=== PATIENT | female | born 1950 | race Caucasian/White ===

== ENCOUNTER → 2017-02-16 | Outpatient (CLI) | payer MEDICARE, OTHER ==
[2017-02-16 10:16] LABS: Basophils # (A) 0.1 k/uL (0-0.2); Basophils % (A) 1 %; CH 29.5; CHCM 32.3; Eosinophils # (A) 0.2 k/uL (0-0.7); Eosinophils % (A) 3 %; HCT 42.5 % (34.0-46.0); HDW 2.41; HGB 13.5 gm/dL (11.4-16.0); Luc # (Auto) 0.16; Luc % (Auto) 2; Lymphocytes % (A) 30 %; MCH 29.1 pg (25.0-35.0); MCHC 31.9 g/dL (31.0-37.0); MCV 91.5 fL (80.0-100.0); Mean Platelet Volume 7.3; Monocytes # (A) 0.4 k/uL (0-1.0); Monocytes % (A) 6 %; Neutrophils # (A) 3.8 k/uL (1.3-7.7); Neutrophils % (A) 59 %; RBC 4.65 m/uL (3.80-5.40); RDW 12.5 % (11.5-15.5); WBC 6.5 k/uL (3.8-10.6); WBC (Perox) 6.52
[2017-02-16 10:23] LABS: Appearance,Urine Clear (Clear); Bacteria,Urine Rare /hpf; Bilirubin,Urine Negative (Negative); Glucose,Urine (UA) Negative (Negative); Ketones,Urine Negative (Negative); Leukocyte Esterase,Urine Large (Negative); Mucus,Urine Rare /hpf; Nitrite,Urine Negative (Negative); Particle Count 1654; Protein,Urine Negative (Negative); Specific Gravity,Urine 1.011 (1.001-1.035); Squamous Epithelial Cell,Urine <1 /hpf (0-4); UA Billing (MACRO vs. MICRO) MICRO; Urobilinogen,Urine <2.0 mg/dL (<2.0); WBC,Urine 23 /hpf (0-5)
[2017-02-16 10:27] LABS: Partial Thromboplastin Time 22.8 sec (22.0-30.0); Prothrombin Time 10.4 sec (9.0-12.0)
[2017-02-16 10:40] LABS: ALT 72 U/L (9-52); AST 79 U/L (14-36); Alkaline Phosphatase 99 U/L (38-126); Anion Gap 14 mmol/L; Blood Urea Nitrogen 15 mg/dL (7-17); Calcium 9.8 mg/dL (8.4-10.2); Carbon Dioxide 28 mmol/L (22-30); Chloride 103 mmol/L (98-107); Glucose 94 mg/dL (74-99); Non-African American GFR(MDRD) 59 (>60 ml/min/1.73 sqM); Potassium 5.2 mmol/L (3.5-5.1); Sodium 145 mmol/L (137-145); Total Bilirubin 0.6 mg/dL (0.2-1.3); Total Protein 7.9 g/dL (6.3-8.2)
== END | disposition home or self-care (01) ==
LOC: LABWHC1 09:25
PROVIDERS: ATTEND Internal Medicine Cardiovascular Disease
DX: M43.10 Spondylolisthesis, site unspecified (principal)
CPT/HCPCS: 36415; 80053; 81001; 85025; 85610; 85730

== ENCOUNTER → 2017-03-21 | Outpatient (CLI) | payer MEDICARE, OTHER ==
--- NOTE | 2017-03-21 10:55 | XR ---
EXAMINATION TYPE: XR lumbar spine 2 or 3V DATE OF EXAM: 03/21/2017 10:39 AM CLINICAL HISTORY: Lumbar spine fusion surgery 3 weeks ago. TECHNIQUE: Frontal and lateral images of the lumbar spine are obtained. COMPARISON: MRI lumbar spine September 15, 2016 FINDINGS: There are 5 lumbar type vertebral bodies redemonstrated. There is interval surgery of bila teral laminectomy defects and spinous process resection at L4 and L5 levels. There is placement of po sterior intra-articular rods and screws transfixing L4, L5, and S1 levels. There is stable grade 1 an terolisthesis of L4 on L5. Vertebral body heights and disc space heights above L4 level remain within normal limits. Vascular calcification of the overlying abdominal aorta is seen. IMPRESSION: Interval surgery L4-S1 levels with stable alignment noted.
== END | disposition home or self-care (01) ==
LOC: RADXRMAIN 10:15
DX: M43.16 Spondylolisthesis, lumbar region (principal); Z98.890 Other specified postprocedural states
CPT/HCPCS: 72100

== ENCOUNTER 2017-04-12 18:44 | Emergency (ER) | payer MEDICARE, OTHER ==
--- NOTE | 2017-04-12 19:24 | ED ---
Back Pain HPI - General Chief Complaint: Back Pain/Injury Stated Complaint: Fall-back pain Time Seen by Provider: 04/12/17 19:02 Source: patient, family, RN notes reviewed Limitations: no limitations - History of Present Illness Initial Comments: 67-year-old female presents emergency Department chief complaint low back pain. Patient states that she was bending down to grab something when she fell backwards onto her right hip, back region. She is concerned that she's had lumbar fusion laminectomy 4 weeks ago approximately by Dr. Aguayo. She states she does have hardware. Patient denies bowel bladder incontinence or retention. She states her pain is actually more towards her hip and the proximal posterior region rather than her back. Denies any head injury no LOC. - Related Data Home Medications Medication Instructions Recorded Confirmed Amitriptyline HCl [Amitriptyline 25 mg PO HS 06/10/14 04/12/17 HCl] Clopidogrel Bisulfate [Clopidogrel] 75 mg PO DAILY 06/10/14 04/12/17 Isosorbide Dinitrate 30 mg PO DAILY 06/10/14 04/12/17 Meloxicam [Meloxicam] 7.5 mg PO DAILY 06/10/14 04/12/17 Potassium Chloride [Potassium 20 meq PO DAILY 06/10/14 04/12/17 Chloride ER] Ezetimibe/Simvastatin [Vytorin 1 each PO HS 07/03/14 04/12/17 10-40 mg Tablet] Lisinopril-Hctz 10-12.5 mg 10 mg PO DAILY 10/01/15 04/12/17 [Zestoretic 10-12.5] Montelukast [Singulair] 10 mg PO HS 10/01/15 04/12/17 Brimonidine Tartrate [Alphagan P 1 drops BOTH EYES BID 04/07/16 04/12/17 0.15% Ophth Soln] Diltiazem HCl [Diltiazem ER] 180 mg PO BID 04/07/16 04/12/17 Omeprazole 40 mg PO AC-BRKFST 04/07/16 04/12/17 Timolol 0.5% Ophth Soln [Timoptic 1 drop BOTH EYES BID 04/07/16 04/12/17 0.5% Ophth Soln] Hydrocodone/Acetaminophen [[place] 1 tab PO Q6H PRN 04/12/17 04/12/17 10-325] Allergies Allergy/AdvReac Type Severity Reaction Status Date / Time levofloxacin [From Levaquin] Allergy Rapid Verified 04/12/17 18:53 Heart Rate Review of Systems ROS Statement: Those systems with pertinent positive or pertinent negative responses have been documented in the HPI. ROS Other: All systems not noted in ROS Statement are negative. Past Medical History Past Medical History: Asthma, Coronary Artery Disease (CAD), CVA/TIA, Eye Disorder, GERD/Reflux, Hyperlipidemia, Hypertension, Myocardial Infarction (RI) , Musculoskeletal Disorder, Sleep Apnea/CPAP/BIPAP Additional Past Medical History / Comment(s): GLAUCOMA JOSE ALFREDO. EYES- GLASSES DAILY USE, IGA RESPONSE TRIGGERS ASTHMA, TRIGGER FINGER, LUMBAR DDD, TIA 2012- NO RESIDUAL, USES C-PAP Last Myocardial Infarction Date:: 09/2005 History of Any Multi-Drug Resistant Organisms: None Reported Past Surgical History: Appendectomy, Back Surgery, Bladder Surgery, Breast Surgery, Cholecystectomy, Heart Catheterization, Hysterectomy, Orthopedic Surgery Additional Past Surgical History / Comment(s): LT KNEE ARTHROSCOPY. LT CTR. HX KIDNEY STONE REMOVAL 10/2012, JOSE ALFREDO LASER EYE SURG. PAIN CLINIC PROCEDURES, BREAST BX LT BREAST, Past Anesthesia/Blood Transfusion Reactions: No Reported Reaction Past Psychological History: No Psychological Hx Reported Smoking Status: Never smoker Past Alcohol Use History: None Reported Past Drug Use History: None Reported - Past Family History Mother Family Medical History: Cancer, Hypertension Additional Family Medical History / Comment(s): FROM THYROID CA, Father Family Medical History: Cancer Additional Family Medical History / Comment(s): FROM STOMACH CA, HX ALCOHOLISM General Exam Limitations: no limitations General appearance: alert, in no apparent distress Head exam: Present: atraumatic, normocephalic, normal inspection Neck exam: Present: normal inspection, full ROM. Absent: tenderness, meningismus, lymphadenopathy Respiratory exam: Present: normal lung sounds bilaterally. Absent: respiratory distress, wheezes, rales, rhonchi, stridor Cardiovascular Exam: Present: regular rate, normal rhythm, normal heart sounds. Absent: systolic murmur, diastolic murmur, rubs, gallop, clicks GI/Abdominal exam: Present: soft, normal bowel sounds. Absent: distended, tenderness, guarding, rebound, rigid Extremities exam: Present: normal inspection, full ROM, normal capillary refill. Absent: tenderness, pedal edema, joint swelling, calf tenderness Back exam: Present: tenderness (Right lumbar region, right buttocks region). Absent: normal inspection (Surgical scar noted healing well with no erythema), full ROM (Decreased range of motion secondary to pain and previous surgery) Neurological exam: Present: reflexes normal. Absent: motor sensory deficit Skin exam: Present: warm, dry, intact, normal color. Absent: rash Course Vital Signs 04/12/17 18:48 Temperature 98.3 F Pulse Rate 89 Respiratory 15 Rate Blood Pressure 110/60 O2 Sat by Pulse 95 Oximetry Medical Decision Making - Medical Decision Making 67-year-old female presented for fall back pain, pelvis pain. There is no acute fracture. Patient's pain is primarily on her buttocks, pelvis region. Patient up-to-date on x-ray results and advised to call her surgeon tomorrow about her fall. Patient does have pain medication at home. Return parameters were discussed. Disposition Clinical Impression: Fall, Back pain, Contusion, buttock Disposition: HOME SELF-CARE Condition: Stable Instructions: Acute Low Back Pain (ED) Additional Instructions: Please return to the Emergency Department if symptoms worsen or any other concerns. Please contact your surgeon tomorrow. Referrals: Richard Tinoco MD [Primary Care Provider] - 1-2 days Time of Disposition: 19:41
--- NOTE | 2017-04-12 19:30 | XR ---
EXAMINATION TYPE: XR pelvis AP view DATE OF EXAM: 04/12/2017 7:26 PM CLINICAL HISTORY: Pelvic pain. Lumbar surgery February 2017. TECHNIQUE: A single AP view of the pelvis is obtained. COMPARISON: None. FINDINGS: There is no acute fracture/dislocation evident in the pelvis. The sacroiliac joints appea r symmetric and unremarkable. Symmetric mild to moderate axial joint space loss in both hips is seen . Postsurgical change to lower lumbar spine is noted. The overlying soft tissue appears unremarkable. IMPRESSION: There is no acute fracture or dislocation in the pelvis.
--- NOTE | 2017-04-12 19:33 | XR ---
EXAMINATION TYPE: XR lumbar spine 2 or 3V DATE OF EXAM: 04/12/2017 7:26 PM CLINICAL HISTORY: Low back pain, history of fusion surgery February 2017. TECHNIQUE: Frontal and lateral images of the lumbar spine are obtained. COMPARISON: Lumbar spine x-ray March 21, 2017. FINDINGS: Osseous structures are demineralized which is noted to lower radiographic sensitivity. Ther e are 5 lumbar type vertebral bodies identified. The lumbar spine shows stable alignment without sara dence of acute fracture or dislocation. There is stable grade 1 anterolisthesis of L4 on L5 . There a re bilateral laminectomy defects and spinous process resection at L4-L5 level. Posterior interpedicul ar rods and screws bilaterally transfixed the L4-S1 levels. Vertebral body heights and disc space hei ghts above level of surgery are within normal limits. Sclerosis at L4-L5 disc space is again seen. Va scular calcification in the overlying soft tissue is redemonstrated. IMPRESSION: No acute fracture or dislocation is seen in the lumbar spine. No significant change from prior study
[2017-04-12 19:51] VITALS: BP 99/58; PULSE 77; RESP 18; TEMP 98.4
== END 2017-04-12 19:51 | disposition home or self-care (01) ==
LOC: EC 18:44
DX: S30.0XXA Contusion of lower back and pelvis, initial encounter (principal); J45.909 Unspecified asthma, uncomplicated; I25.10 Atherosclerotic heart disease of native coronary artery without angina pectoris; K21.9 Gastro-esophageal reflux disease without esophagitis; E78.5 Hyperlipidemia, unspecified; I10 Essential (primary) hypertension; I25.2 Old myocardial infarction; Z79.01 Long term (current) use of anticoagulants; Z79.1 Long term (current) use of non-steroidal anti-inflammatories (NSAID); Z79.899 Other long term (current) drug therapy; Z88.1 Allergy status to other antibiotic agents; W19.XXXA Unspecified fall, initial encounter; Y92.009 Unspecified place in unspecified non-institutional (private) residence as the place of occurrence of the external cause
CPT/HCPCS: 72100; 72170; 99283

== ENCOUNTER → 2017-04-15 | Outpatient (CLI) | payer MEDICARE, OTHER ==
[2017-04-15 10:33] LABS: ALT 38 U/L (9-52); AST 37 U/L (14-36); Alkaline Phosphatase 135 U/L (38-126); Anion Gap 12 mmol/L; Blood Urea Nitrogen 20 mg/dL (7-17); Calcium 9.5 mg/dL (8.4-10.2); Carbon Dioxide 23 mmol/L (22-30); Chloride 109 mmol/L (98-107); Cholesterol 144 mg/dL (<200); Glucose 118 mg/dL (74-99); HDL Cholesterol 41 mg/dL (40-60); Magnesium 1.6 mg/dL (1.6-2.3); Non-African American GFR(MDRD) >60 (>60 ml/min/1.73 sqM); Potassium 3.9 mmol/L (3.5-5.1); Sodium 144 mmol/L (137-145); Total Bilirubin 0.5 mg/dL (0.2-1.3); Total Protein 7.8 g/dL (6.3-8.2); Triglycerides 142 mg/dL (<150)
== END | disposition home or self-care (01) ==
LOC: LABWHC1 09:31
PROVIDERS: ATTEND Family Medicine
DX: Z01.818 Encounter for other preprocedural examination (principal); E78.5 Hyperlipidemia, unspecified; R94.5 Abnormal results of liver function studies; J01.90 Acute sinusitis, unspecified
CPT/HCPCS: 36415; 80053; 80061; 83735

== ENCOUNTER → 2017-06-07 | Outpatient (CLI) | payer MEDICARE, OTHER ==
--- NOTE | 2017-06-08 10:58 | CONS ---
DATE OF CONSULTATION: 06/07/2017 This is a very pleasant 67 year old female patient who follows with Dr. Richard Tinoco as her primary care physician. She has a history of coronary artery disease, TIA, glaucoma, GERD, hyperlipidemia, hypertension, myocardial infarction, IgA deficiency, asthma. She also has a history of sleep apnea with an AHI of 82 and she utilizes CPAP at a pressure of 10 cm water. She is seen today in consultation. Based on the fact that she had recently undergone a laminectomy surgery with general anesthesia at [facility]. During that hospitalization, two to three days later, she was noted to have drops in her O2 saturation while wearing her CPAP machine. They had removed the CPAP and placed her on regular oxygen to maintain O2 saturations greater than 90%. This is the reason for her visit here today which is concerned regarding desaturations while on her CPAP. Her last study was back in 2010. The patient feels as though her CPAP machine is working okay but she is now concerned regarding desaturations. Also her machine is broken and all of the information is not able to be obtained as to utilization and efficacy. She denies any worsening shortness of breath at this time. No cough or congestion. She denies any significant daytime sleepiness. She does take naps daily between 1 and 2 p.m. and does feel refreshed after her nap. She is noted to snore only without her CPAP. She admits to wearing her CPAP daily. Past medical history includes IgA deficiency, asthma, coronary artery disease with previous myocardial infarction, TIA, gastroesophageal reflux disease. hyperlipidemia, hypertension, obstructive sleep apnea, glaucoma, chronic back pain. Surgical history includes: Appendectomy, back surgery, bladder surgery, breast surgery, cholecystectomy, cardiac catheterization, hysterectomy, orthopedic surgeries including left knee arthroplasty and recent laminectomy. SOCIAL HISTORY: She is a life long nonsmoker. No excessive alcohol use. No illicit drug use. Family history is positive for cancer and hypertension in her mother who passed from thyroid cancer. Her father had stomach cancer and history of alcoholism. ALLERGIES: LEVAQUIN. Home medications: 1. Timolol ophthalmic drops 0.5 b.i.d. with ( ) ophthalmic 2.0 b.i.d. 2. Diltiazem ER 180 mg daily. 3. Imdur 30 mg daily. 4. Lisinopril HCT 10/12.5 daily. 5. Montelukast 10 mg at bedtime. 6. Pantoprazole 50 mg at bedtime. 7. atorvastatin 20 mg at bedtime. 8. Amitriptyline hydrochloride 25 mg at bedtime. 9. Plavix 75 mg daily. 10. Meloxicam 7.5 mg daily. 11. Diazepam 5 mg one tablet daily. 12. [place] 10/325 mg q4 hours prn. Review of systems: 14 point review of systems was conducted, all negative other than as mentioned in the HPI. On physical exam, vital signs revealed blood pressure 102/56. Heart rate 90. Respirations 16. Temperature is 97.8. She is 96% O2 saturation on room air. Her BMI is 31.7. She is 4 foot 10 inches at 151 pounds. Her head is normocephalic. Sclerae anicteric. There is crowding of the posterior pharynx. Neck is short, supple. Trachea midline. Lungs are clear. Heart is regular. Abdomen is soft. No significant peripheral edema. No clubbing. No cyanosis. IMPRESSION: 1. Obstructive sleep apnea with an AHI of 82 utilizing CPAP at a pressure of 10 cm of water with concerns regarding oxygen desaturation while at night based on information relayed to the patient post laminectomy at [facility]. 2. Chronic back pain with recent laminectomy. 3. Coronary artery disease. 4. History of transient ischemic attack. 5. Hyperlipidemia. 6. Hypertension. 7. IgA deficiency asthma. PLAN: The patient was seen and evaluated by Dr. Blakely who reviewed her CPAP as best he could based on the fact that the knob is broken and most of the information is not available. There is concern regarding her drops in O2 saturations while utilizing the CPAP machine. He is recommending CPAP titration today to evaluate both the effectiveness of the machine as well as the potential oxygen desaturation at nighttime despite wearing the machine. This will be scheduled for the patient and we will see her in followup post study and make further recommendations based on her clinical status. DIVYA
== END ==
LOC: SLEEP 14:53
PROVIDERS: ATTEND Internal Medicine Critical Care Medicine
DX: G47.33 Obstructive sleep apnea (adult) (pediatric) (principal); I25.10 Atherosclerotic heart disease of native coronary artery without angina pectoris; E78.5 Hyperlipidemia, unspecified; I10 Essential (primary) hypertension; J45.998 Other asthma; Z86.73 Personal history of transient ischemic attack (TIA), and cerebral infarction without residual deficits; Z88.1 Allergy status to other antibiotic agents; Z79.02 Long term (current) use of antithrombotics/antiplatelets; Z79.1 Long term (current) use of non-steroidal anti-inflammatories (NSAID); Z79.899 Other long term (current) drug therapy
CPT/HCPCS: 99211

== ENCOUNTER → 2017-08-08 | Outpatient (CLI) | payer MEDICARE, OTHER ==
--- NOTE | 2017-08-08 08:55 | XR ---
EXAMINATION TYPE: XR lumbar spine 2 or 3V DATE OF EXAM: 08/08/2017 CLINICAL HISTORY: Low back pain after surgical fusion. TECHNIQUE: Frontal and lateral images of the lumbar spine are obtained. COMPARISON: 04/12/2017 FINDINGS: Fixation rods and pedicular screws span L4-S1 Stable grade 1 anterolisthesis of L4 on L5 i s again noted. There is also grade 1 anterolisthesis of L5 on S1. This is also overall unchanged from the prior exam. Laminectomy defects and spinous process resection is seen at L4-L5 and L5-S1. Degene rative endplate sclerosis is again noted at L4-L5. The lumbar spine shows satisfactory alignment with out evidence of acute fracture or dislocation. Vertebral body heights and disk space heights are with in normal limits. Atherosclerosis is seen of the abdominal aorta. Cholecystectomy clips are noted wit hin the right upper quadrant. Unchanged probable phleboliths are seen adjacent to L5 on the left. The overlying soft tissue appears unremarkable. IMPRESSION: Postsurgical changes of the lumbar spine with persistent anterolisthesis (grade 1) of L4 on L5 and L5 on S1. No acute fracture, or malalignment, or hardware malfunction is seen in the lumbar spine.
== END ==
LOC: RADXRMAIN 08:35
DX: M43.16 Spondylolisthesis, lumbar region (principal)
CPT/HCPCS: 72100

== ENCOUNTER → 2017-08-23 | Outpatient (CLI) | payer MEDICARE, OTHER ==
--- NOTE | 2017-08-24 08:03 | MM ---
Reason for exam: screening (asymptomatic). Last mammogram was performed 1 year ago. History: Patient is postmenopausal and has history of high-risk lesion on a previous biopsy at age 53. High risk stereotactic core biopsy of the left breast, April 25, 2003. Benign excisional biopsy of the left breast, 2002. Benign stereotactic core biopsy of the left breast, May 06, 2000. Took hormonal contraceptives for 4 years beginning at age 22. Took estrogen for 12 years beginning at age 36. Took progesterone for 12 years beginning at age 36. Physical Findings: A clinical breast exam by your physician is recommended on an annual basis and results should be correlated with mammographic findings. MG 3D Screening Mammo W/Cad Bilateral CC and MLO view(s) were taken. Prior study comparison: August 18, 2016, bilateral MG 3d screening mammo w/cad. August 19, 2015, left breast MG work up mamm w CAD LT. August 15, 2015, bilateral MG screening mammo w CAD. There are scattered fibroglandular densities. Finding: There is a stable architectural distortion in the outer quadrant, posterior position of the left breast, consistent with known excisional biopsy. Previous mammotome biopsy in the left breast. There is no discrete abnormality. ASSESSMENT: Benign, BI-RAD 2 RECOMMENDATION: Routine screening mammogram of both breasts in 1 year.
== END | disposition home or self-care (01) ==
LOC: RADMAMWWP 08:08
PROVIDERS: ATTEND Surgery
DX: Z12.31 Encounter for screening mammogram for malignant neoplasm of breast (principal)
CPT/HCPCS: 77063; G0202

== ENCOUNTER → 2017-08-30 | Outpatient (CLI) | payer MEDICARE, OTHER ==
--- NOTE | 2017-08-30 18:12 | PN ---
PROGRESS NOTE 67-year-old female patient was diagnosed having severe MONI with an AHI of 32, who is currently on CPAP pressure of 10 cm of water and she is coming in for a compliancy check. Note that the patient also has bronchial asthma coronary artery disease, previous [place], TIA, GERD, hyperlipidemia, hypertension, chronic back pain. She is having some IgA deficiency. On today's evaluation. The patient is very happy, she is very excited about her treatment. She is benefitting from the treatment. She is waking up much more alert and awake during the day. No major hypersomnia or sleepiness. She denies falling asleep during day-to-day activities. Hypersomnia is completely recovered. Her sleep quality is improved. Based on the compliance data the patient has been averaging about 8.8 hours of CPAP use over the past 30 days. Her CPAP use for more than 4 hours is 100% of the time and her AHI is down to 1.6. Her leak factor is only at 2 L/minute nasal cannula. She is using a dream wear nose mask. She has absolutely no complaints. She is very much insight about the treatment and she is happy and she has been successfully treated. REVIEW OF SYSTEMS: A 12-point review of system was done. Positive findings are mentioned above in the history of present illness. No known no sleepwalking or sleep talking. No the nightmare. No parasomnias. PHYSICAL EXAMINATION: BP is 122/61, pulse 88, respirations 16, temperature 98.0. Saturation 97% on room air. Weight is 153. General appearance, calm, comfortable in no acute distress. Head is atraumatic, normocephalic. NECK: Supple. There is no JVD. No goiter or neck masses. Mallampati class IV. LUNGS: Clear to auscultation. HEART: Sounds are regular rate and rhythm. Normal S1, S2. No S3, S4. No murmurs. ABDOMEN: Soft, nontender. No organomegaly. EXTREMITIES: No edema. No cyanosis or clubbing. NEURO: Alert and oriented times three. There is no focal neurological deficits. Skin is negative for ulcers, wounds or cellulitis. Skeletal is negative for any kyphoscoliosis or arthritis. IMPRESSION: 1. Severe symptomatic obstructive sleep apnea with an AHI of 82, currently on CPAP pressure of 10 cm of water. The treatment is successful, clinically improved. Compliance data was also reviewed. 2. Coronary artery disease. 3. Hypertension. 4. Hyperlipidemia. 5. History of transient ischemic attack. 6. IgA deficiency. 7. Bronchial asthma. 8. Chronic back pain. PLAN: 1. Continue CPAP therapy at the same level of pressure which is 10 cm of water. 2. Continue the same mask which is a dream wear small size. 3. Implement good sleep hygiene measures. Treatment was successful. See me back in a year's time earlier if needed. No need for any further adjustments on her CPAP treatment and the patient has been utilizing the treatment without any major complications. MMODL / IJN: [id number] /
== END | disposition home or self-care (01) ==
LOC: SLEEP 13:19
PROVIDERS: ATTEND Internal Medicine Critical Care Medicine
DX: G47.33 Obstructive sleep apnea (adult) (pediatric) (principal); D80.2 Selective deficiency of immunoglobulin A [IgA]; I25.10 Atherosclerotic heart disease of native coronary artery without angina pectoris; I10 Essential (primary) hypertension; E78.5 Hyperlipidemia, unspecified; J45.909 Unspecified asthma, uncomplicated; G89.29 Other chronic pain

== ENCOUNTER → 2018-02-01 | Outpatient (CLI) | payer MEDICARE, OTHER ==
[2018-02-01 08:28] LABS: Basophils # (A) 0.1 k/uL (0-0.2); Basophils % (A) 1 %; Eosinophils # (A) 0.4 k/uL (0-0.7); Eosinophils % (A) 5 %; HCT 39.8 % (34.0-46.0); Lymphocytes # (A) 2.6 k/uL (1.0-4.8); Lymphocytes % (A) 34 %; MCH 28.6 pg (25.0-35.0); MCHC 32.7 g/dL (31.0-37.0); MCV 87.6 fL (80.0-100.0); Mean Platelet Volume 7.7; Monocytes # (A) 0.4 k/uL (0-1.0); Monocytes % (A) 5 %; Neutrophils # (A) 4.1 k/uL (1.3-7.7); Neutrophils % (A) 53 %; Platelet Count 269 k/uL (150-450); RBC 4.55 m/uL (3.80-5.40); RDW 13.2 % (11.5-15.5); WBC 7.7 k/uL (3.8-10.6)
[2018-02-01 08:48] LABS: Albumin 4.1 g/dL (3.5-5.0); Calcium 9.4 mg/dL (8.4-10.2); Potassium 4.7 mmol/L (3.5-5.1); Total Bilirubin 0.5 mg/dL (0.2-1.3)
== END | disposition home or self-care (01) ==
LOC: LABWHC1 08:03
PROVIDERS: ATTEND Internal Medicine Cardiovascular Disease
DX: I95.9 Hypotension, unspecified (principal); R42 Dizziness and giddiness
CPT/HCPCS: 36415; 80053; 85025

== ENCOUNTER → 2018-03-02 | Outpatient (CLI) | payer MEDICARE, OTHER ==
[2018-03-02 08:11] LABS: Basophils # (A) 0.1 k/uL (0-0.2); Basophils % (A) 1 %; Eosinophils # (A) 0.4 k/uL (0-0.7); Eosinophils % (A) 5 %; HCT 40.9 % (34.0-46.0); HGB 13.5 gm/dL (11.4-16.0); Lymphocytes # (A) 2.5 k/uL (1.0-4.8); Lymphocytes % (A) 32 %; MCH 28.3 pg (25.0-35.0); Mean Platelet Volume 7.5; Monocytes # (A) 0.4 k/uL (0-1.0); Monocytes % (A) 5 %; Neutrophils # (A) 4.2 k/uL (1.3-7.7); Neutrophils % (A) 54 %; Platelet Count 255 k/uL (150-450); RBC 4.76 m/uL (3.80-5.40); RDW 13.2 % (11.5-15.5); WBC 7.8 k/uL (3.8-10.6)
[2018-03-02 09:16] LABS: T4, Free (Free Thyroxine) 0.67 ng/dL (0.78-2.19)
== END | disposition home or self-care (01) ==
LOC: LABWHC1 07:38
PROVIDERS: ATTEND Family Medicine
DX: Z00.00 Encounter for general adult medical examination without abnormal findings (principal); E87.5 Hyperkalemia; I10 Essential (primary) hypertension; R94.5 Abnormal results of liver function studies
CPT/HCPCS: 36415; 80061; 84439; 84443; 85025

== ENCOUNTER → 2018-03-14 | Outpatient (CLI) | payer MEDICARE, OTHER ==
--- NOTE | 2018-03-14 13:17 | BD ---
EXAMINATION TYPE: MG DEXA axial skeleton. DATE OF EXAM: 03/14/2018 COMPARISON: Prior DEXA bone scan December 06, 2011. CLINICAL HISTORY: screening Height: 4'10 Weight: 166 FRAX RISK QUESTIONS: Alcohol (3 or more units per day): no Family History (Parent hip fracture): no Glucocorticoids (More than 3mos): no (Ex: prednisone, prednisolone, methylprednisolone, dexamethasone, and hydrocortisone). History of Fracture in Adulthood: no Secondary Osteoporosis: 1. Type 1 Diabetes: no 2. Hyperthyroidism: no 3. Menopause before 45: yes 4. Malnutrition: no 5. Chronic liver disease: no Rheumatoid Arthritis: no Current Tobacco Use: no RISK FACTORS HISTORY OF: Surgery to Spine/: L spine When: 2017 Diet low in dairy products/other sources of calcium: Postmenopausal woman: MEDICATIONS: Additional Medications: high blood pressure, cholesterol, hiatal hernia, Additional History: EXAM MEASUREMENTS: Bone mineral densitometry was performed using the [employer] System. Bone mineral density about the R hip (g/cm2): 0.691 Bone mineral density about the L hip (g/cm2): 0.752 T Score values are as follows: -----R Neck: -2.5 -----L Neck: -2.1 -----R Total: -1.4 -----L Total: -0.8 Bone mineral density has: Increased 7.3% since study of: 12/06/2011 IMPRESSION: Osteopenia (T Score between -2.5 and -1) persists at femoral neck level both hips. Bone density is no viki improved from prior. There is now slightly increased risk of fracture and the patient may be considered for treatment. Re-Screen 2-5 years. NOTE: T-SCORE=SD OF THE YOUNG ADULT MEAN.
[2018-03-14 16:53] LABS: Vitamin D 25 Hydroxy 12.1 ng/mL (30.0-100.0)
[2018-03-14 18:50] LABS: Thyroglobulin 1.5 ng/mL (1.60-59.90)
== END ==
LOC: RADBDWWP 10:11
PROVIDERS: ATTEND Family Medicine
DX: M85.851 Other specified disorders of bone density and structure, right thigh (principal); M85.852 Other specified disorders of bone density and structure, left thigh; Z00.01 Encounter for general adult medical examination with abnormal findings; E87.5 Hyperkalemia; R94.5 Abnormal results of liver function studies; R94.6 Abnormal results of thyroid function studies
CPT/HCPCS: 36415; 77080; 82306; 84432; 84442; 86800

== ENCOUNTER → 2018-07-06 | Outpatient (CLI) | payer MEDICARE, OTHER ==
[2018-07-06 09:37] LABS: Albumin 3.9 g/dL (3.5-5.0); Bilirubin, Delta 0.2 mg/dL (0.0-0.2); Bilirubin,Unconjugated 0.2 mg/dL (0.0-1.1); Total Bilirubin 0.4 mg/dL (0.2-1.3); Total Protein 6.6 g/dL (6.3-8.2)
[2018-07-06 09:50] LABS: T4, Free (Free Thyroxine) 1.07 ng/dL (0.78-2.19)
== END | disposition home or self-care (01) ==
LOC: LABWHC1 08:16
PROVIDERS: ATTEND Family Medicine
DX: E06.3 Autoimmune thyroiditis (principal); I10 Essential (primary) hypertension; R94.5 Abnormal results of liver function studies
CPT/HCPCS: 36415; 80076; 84439; 84443

== ENCOUNTER → 2018-09-05 | Outpatient (CLI) | payer MEDICARE, OTHER ==
--- NOTE | 2018-09-05 16:33 | PN ---
PROGRESS NOTE Nidia is doing extremely well. She is coming in for a followup regarding her obstructive sleep apnea treatment. The patient was diagnosed having MONI, severe, and the patient is currently on CPAP with a pressure of 10 cm of water. Since her last evaluation she has gained weight. She attributes this to a diagnosis of hypothyroidism. She was found to be hypothyroid and she was started on Synthroid 25 mcg daily. Currently she is using a Dream Wear small-sized nose mask. She is still benefitting from the treatment. She cannot sleep without it. She is going to [place] and she is planning to take her machine with her. [place] score is 1. She is averaging more than 8.8 hours of CPAP use per night. Her compliancy for more than 4 hours is 27/30. Leak factor is 11 L/minute. Her AHI while on treatment is down to 0.8. Her weight has been up, as mentioned; however, despite that there has been no decompression or worsening in her sleep quality in general. REVIEW OF SYSTEMS: Twelve-point review of systems was done. Positive findings are mentioned above. No hypersomnia or sleepiness. She does not take any naps during the day. No snoring while on CPAP therapy. She has gained weight and she was diagnosed having hypothyroidism. No angina. No history of TIA or CVA since her last evaluation. BP remains under good control. PHYSICAL EXAMINATION: BP is 122/55, pulse 88, respirations 16, temperature 97.7, saturation 94% on room air. Weight is 170. Height is 4 feet 11 inches, BMI 34.3. GENERAL APPEARANCE: Calm, comfortable. Head is atraumatic, normocephalic. NECK: Supple. No JVD. No goiter or neck masses. Mallampati class IV. LUNGS: Clear to auscultation. HEART: Heart sounds are regular rate and rhythm. Normal S1, S2. No S3, S4. No murmurs. ABDOMEN: Soft, nontender. No organomegaly. EXTREMITIES: No edema. No cyanosis or clubbing. IMPRESSION: 1. Severe symptomatic obstructive sleep apnea, currently on CPAP with a pressure of 10 with excellent clinical response and compliancy. 2. Hypersomnia, improved. [place] score is down to 2. 3. Coronary artery disease. 4. Hypothyroidism with interval weight gain. Currently on Synthroid. 5. Hyperlipidemia. 6. History of transient ischemic attack. 7. IgA deficiency. 8. Bronchial asthma. 9. Chronic back pain. PLAN: 1. Encourage weight loss. 2. Continue with Synthroid replacement. 3. Keep CPAP therapy at a pressure of 10. 4. Renew the [employer] small-sized nose mask, which is providing an adequate mask interface. 5. Will continue to follow. MMODL / IJN: [id number] /
== END ==
LOC: SLEEP 13:03
PROVIDERS: ATTEND Internal Medicine Critical Care Medicine
DX: G47.33 Obstructive sleep apnea (adult) (pediatric) (principal); I25.10 Atherosclerotic heart disease of native coronary artery without angina pectoris; E03.9 Hypothyroidism, unspecified; E78.5 Hyperlipidemia, unspecified; J45.909 Unspecified asthma, uncomplicated; D80.2 Selective deficiency of immunoglobulin A [IgA]; G89.29 Other chronic pain; M54.9 Dorsalgia, unspecified; Z99.89 Dependence on other enabling machines and devices; R63.5 Abnormal weight gain; Z79.899 Other long term (current) drug therapy; Z68.34 Body mass index [BMI] 34.0-34.9, adult

== ENCOUNTER → 2018-09-28 | Outpatient (CLI) | payer MEDICARE, OTHER ==
[2018-09-28 13:49] VITALS: BP 109/64; PULSE 79; RESP 18; TEMP 97; BMI 33.1
--- NOTE | 2018-09-28 14:12 | P.GSHP ---
History of Present Illness H&P Date: 09/28/18 Chief Complaint: fibrocystic breast The patient is a 68-year-old white female who comes for breast examination. At this time she has no complaints related to her breast. She has no masses in her breasts. No nipple discharge or skin changes. She has no recent history of any trauma or infection of the breast. Her last bilateral mammogram was in April 2017. Family History: mother: thyroid cancer father: stomach cancer Hormonal History: menarche: 17 : 2, 2 children, breast fed: one, first at 27 menopause: hysterectomy at 41, cyst on ovaries, took both ovaries as well BCP: 8 years hormones: 10 years, estrogen Past Surgical History: 1. hysterectomy and bilateral oophrectomy 2. spinal fusion 3. appy 4. gallbladder 5. ankle fusion 6. breast biopsy 7. bladder surgery 8. heart cath Past Medical History: 1. hypothyroid 2. HTN Social History smoke: none alcohol; none drugs: none - Constitutional Constitutional: Denies chills, Denies fever - EENT Comment: wears glasses, vitreous fluid in the right eye with floaters Eyes: right decreased vision, denies pain Ears: deny: decreased hearing, tinnitus Ears, nose, mouth and throat: Denies headache, Denies sore throat - Breasts Breasts: bilateral: as per HPI - Cardiovascular Cardiovascular: Denies chest pain, Denies shortness of breath - Respiratory Respiratory: Denies cough, Denies 7 - Gastrointestinal Gastrointestinal: Denies abdominal pain, Denies diarrhea, Denies nausea, Denies vomiting - Genitourinary (Female) Genitourinary: Reports kidney stones - Menstruation Menstruation: Reports post hysterectomy - Musculoskeletal Comment: arthritis - Integumentary Integumentary: Denies pruritus, Denies rash - Neurological Comment: ? TIA in the past Neurological: Denies numbness, Denies weakness - Psychiatric Psychiatric: Denies anxiety, Denies depression - Endocrine Comment: hypothyroid Endocrine: Denies fatigue, Denies weight change - Hematologic/Lymphatic Comment: plavix - Allergic/Immunologic Comment: IGA deficiency more suspectiable to Upper resp infections Past Medical History Past Medical History: Asthma, Coronary Artery Disease (CAD), CVA/TIA, Eye Disorder, GERD/Reflux, Hyperlipidemia, Hypertension, Myocardial Infarction ([place]) , Musculoskeletal Disorder, Sleep Apnea/CPAP/BIPAP Additional Past Medical History / Comment(s): GLAUCOMA JOSE ALFREDO. EYES- GLASSES DAILY USE, IGA RESPONSE TRIGGERS ASTHMA, TRIGGER FINGER, LUMBAR DDD, TIA 2012- NO RESIDUAL, USES C-PAP Last Myocardial Infarction Date:: 09/2005 History of Any Multi-Drug Resistant Organisms: None Reported Past Surgical History: Appendectomy, Back Surgery, Bladder Surgery, Breast Surgery, Cholecystectomy, Heart Catheterization, Hysterectomy, Orthopedic Surgery Additional Past Surgical History / Comment(s): LT KNEE ARTHROSCOPY. LT CTR. HX KIDNEY STONE REMOVAL 10/2012, JOSE ALFREDO LASER EYE SURG. PAIN CLINIC PROCEDURES, BREAST BX LT BREAST, Past Anesthesia/Blood Transfusion Reactions: No Reported Reaction Past Psychological History: No Psychological Hx Reported Smoking Status: Never smoker Past Alcohol Use History: None Reported Past Drug Use History: None Reported - Past Family History Mother Family Medical History: Cancer, Hypertension Additional Family Medical History / Comment(s): FROM THYROID [place], Father Family Medical History: Cancer Additional Family Medical History / Comment(s): FROM STOMACH [place], HX ALCOHOLISM Medications and Allergies Home Medications Medication Instructions Recorded Confirmed Type Amitriptyline HCl 25 mg PO HS 06/10/14 04/12/17 History Clopidogrel Bisulfate [Clopidogrel] 75 mg PO DAILY 06/10/14 04/12/17 History Isosorbide Dinitrate 30 mg PO DAILY 06/10/14 04/12/17 History Meloxicam 7.5 mg PO DAILY 06/10/14 04/12/17 History Potassium Chloride 20 meq PO DAILY 06/10/14 04/12/17 History Ezetimibe/Simvastatin [Vytorin 1 each PO HS 07/03/14 04/12/17 History 10-40 mg Tablet] Lisinopril-Hctz 10-12.5 mg 10 mg PO DAILY 10/01/15 04/12/17 History [Zestoretic 10-12.5] Montelukast [Singulair] 10 mg PO HS 10/01/15 04/12/17 History Brimonidine Tartrate [Alphagan P 1 drops BOTH EYES BID 04/07/16 04/12/17 History 0.15% Ophth Soln] Diltiazem HCl [Diltiazem ER] 180 mg PO BID 04/07/16 04/12/17 History Omeprazole 40 mg PO AC-BRKFST 04/07/16 04/12/17 History Timolol 0.5% Ophth Soln [Timoptic 1 drop BOTH EYES BID 04/07/16 04/12/17 History 0.5% Ophth Soln] Hydrocodone/Acetaminophen [[place] 1 tab PO Q6H PRN 04/12/17 04/12/17 History 10-325] Allergies Allergy/AdvReac Type Severity Reaction Status Date / Time levofloxacin [From Levaquin] Allergy Rapid Verified 04/12/17 18:53 Heart Rate Surgical - Exam Vital Signs Temp Pulse Resp BP 97 F L 79 18 109/64 09/28/18 13:45 09/28/18 13:45 09/28/18 13:45 09/28/18 13:45 BMI 33.1 - General well developed, well nourished, no distress, obese - Eyes normal ocular movement - ENT no hearing loss, no congestion - Neck no masses, trachea midline - Respiratory normal respiratory effort, clear to auscultation - Cardiovascular Rhythm: regular Heart Sounds: normal: S1, S2 - Abdomen Abdomen: soft - Neurologic no disoriented, no combative - Musculoskeletal normal gait, normal posture - Psychiatric oriented to time, oriented to person, oriented to place, speech is normal, memory intact breast exam: right breast: Multi-positional exam no dominant masses or nodules of concern Right axilla: No adenopathy of concern Left breast: Multiple positional exam no dominant masses or nodules of concern Left axilla: No adenopathy of concern Assessment and Plan Assessment: Impression: 1. Fibrocystic breast changes 2. Asthma/IgA deficiency 3. Hypertension 4. Questionable TIA in the past 6. Questionable [place] in the past Plan: 1. Bilateral breast mammogram this is normal repeat bilateral mammogram physician exam in 1 year 2. Medical management of medical conditions CC: Alejandrina
== END | disposition home or self-care (01) ==
LOC: WWCWWP 12:50
PROVIDERS: ATTEND Surgery
DX: Z53.9 Procedure and treatment not carried out, unspecified reason (principal)

== ENCOUNTER → 2018-10-24 | Outpatient (CLI) | payer MEDICARE, OTHER ==
--- NOTE | 2018-10-25 14:54 | MM ---
Reason for exam: screening (asymptomatic). Last mammogram was performed 1 year and 2 months ago. History: Patient is postmenopausal and has history of high-risk lesion on a previous biopsy at age 53. High risk stereotactic core biopsy of the left breast, April 25, 2003. Benign excisional biopsy of the left breast, 2002. Benign stereotactic core biopsy of the left breast, May 06, 2000. Took hormonal contraceptives for 4 years beginning at age 22. Took estrogen for 12 years beginning at age 36. Took progesterone for 12 years beginning at age 36. Physical Findings: A clinical breast exam by your physician is recommended on an annual basis and results should be correlated with mammographic findings. MG 3D Screening Mammo W/Cad Bilateral CC and MLO view(s) were taken. Prior study comparison: August 23, 2017, bilateral MG 3d screening mammo w/cad. August 18, 2016, bilateral MG 3d screening mammo w/cad. There are scattered fibroglandular densities. Previous mammotome biopsy in the left breast. No significant changes when compared with prior studies. ASSESSMENT: Benign, BI-RAD 2 RECOMMENDATION: Routine screening mammogram of both breasts in 1 year.
== END | disposition home or self-care (01) ==
LOC: RADMAMWWP 07:17
PROVIDERS: ATTEND Surgery
DX: Z12.31 Encounter for screening mammogram for malignant neoplasm of breast (principal)
CPT/HCPCS: 77063; 77067

== ENCOUNTER 2018-12-11 17:33 | Emergency (ER) | payer MEDICARE, OTHER ==
[2018-12-11 18:01] VITALS: TEMP 98
[2018-12-11] MEDS ORDERED: KETOROLAC 30 MG/ML 1 ML VIAL IM STA (19:00)
--- NOTE | 2018-12-11 19:26 | ED ---
General Adult HPI - General Chief complaint: Extremity Problem,Nontraumatic Stated complaint: left knee pain Time Seen by Provider: 12/11/18 18:36 Source: patient, RN notes reviewed Mode of arrival: ambulatory Limitations: no limitations - History of Present Illness Initial comments: 68-year-old female presents to the emergency department for a chief complaint of left knee pain x 3 days. Patient states she has chronic pain in the left knee. Patient saw orthopedic surgeon about one week ago and was told she needed a total knee replacement. Patient states she did not want to do this so agreed to steroid injection at that time. Patient states that about 3 days ago she started to have worsening left knee pain. She states she is ambulating on it. Patient states she tried to see her orthopedic surgeon today but did not receive a call back. Patient has no other complaints at this time including shortness of breath, chest pain, abdominal pain, nausea or vomiting, headache, or visual changes. - Related Data Home Medications Medication Instructions Recorded Confirmed Amitriptyline HCl 25 mg PO HS 06/10/14 09/28/18 Clopidogrel Bisulfate [Clopidogrel] 75 mg PO DAILY 06/10/14 09/28/18 Isosorbide Dinitrate 30 mg PO DAILY 06/10/14 09/28/18 Meloxicam 7.5 mg PO DAILY 06/10/14 09/28/18 Potassium Chloride 20 meq PO DAILY 06/10/14 09/28/18 Ezetimibe/Simvastatin [Vytorin 1 each PO HS 07/03/14 04/12/17 10-40 mg Tablet] Lisinopril-Hctz 10-12.5 mg 10 mg PO DAILY 10/01/15 09/28/18 [Zestoretic 10-12.5] Montelukast [Singulair] 10 mg PO HS 10/01/15 09/28/18 Brimonidine Tartrate [Alphagan P 1 drops BOTH EYES BID 04/07/16 09/28/18 0.15% Ophth Soln] Diltiazem HCl [Diltiazem ER] 180 mg PO BID 04/07/16 09/28/18 Omeprazole 40 mg PO AC-BRKFST 04/07/16 09/28/18 Timolol 0.5% Ophth Soln [Timoptic 1 drop BOTH EYES BID 04/07/16 09/28/18 0.5% Ophth Soln] Allergies Allergy/AdvReac Type Severity Reaction Status Date / Time codeine Allergy Unknown Verified 12/11/18 18:01 levofloxacin [From Levaquin] Allergy Rapid Verified 12/11/18 18:01 Heart Rate Review of Systems ROS Statement: Those systems with pertinent positive or pertinent negative responses have been documented in the HPI. ROS Other: All systems not noted in ROS Statement are negative. Past Medical History Past Medical History: Asthma, Coronary Artery Disease (CAD), CVA/TIA, Eye Disorder, GERD/Reflux, Hyperlipidemia, Hypertension, Myocardial Infarction ([place]) , Musculoskeletal Disorder, Sleep Apnea/CPAP/BIPAP Additional Past Medical History / Comment(s): GLAUCOMA JOSE ALFREDO. EYES- GLASSES DAILY USE, IGA RESPONSE TRIGGERS ASTHMA, TRIGGER FINGER, LUMBAR DDD, TIA 2012- NO RESIDUAL, USES C-PAP Last Myocardial Infarction Date:: 09/2005 History of Any Multi-Drug Resistant Organisms: None Reported Past Surgical History: Appendectomy, Back Surgery, Bladder Surgery, Breast Surgery, Cholecystectomy, Heart Catheterization, Hysterectomy, Orthopedic Surgery Additional Past Surgical History / Comment(s): LT KNEE ARTHROSCOPY. LT CTR. HX KIDNEY STONE REMOVAL 10/2012, JOSE ALFR[facility]O LASER EYE SURG. PAIN CLINIC PROCEDURES, BREAST BX LT BREAST, Past Anesthesia/Blood Transfusion Reactions: No Reported Reaction Past Psychological History: No Psychological Hx Reported Smoking Status: Never smoker Past Alcohol Use History: None Reported Past Drug Use History: None Reported - Past Family History Mother Family Medical History: Cancer, Hypertension Additional Family Medical History / Comment(s): FROM THYROID [place], Father Family Medical History: Cancer Additional Family Medical History / Comment(s): FROM STOMACH [place], HX ALCOHOLISM General Exam Limitations: no limitations General appearance: alert, in no apparent distress Head exam: Present: atraumatic, normocephalic, normal inspection Eye exam: Present: normal appearance, PERRL, EOMI. Absent: scleral icterus, conjunctival injection, periorbital swelling ENT exam: Present: normal exam, mucous membranes moist Neck exam: Present: normal inspection, full ROM. Absent: tenderness, meningismus, lymphadenopathy Respiratory exam: Present: normal lung sounds bilaterally. Absent: respiratory distress, wheezes, rales, rhonchi, stridor Cardiovascular Exam: Present: regular rate, normal rhythm, normal heart sounds. Absent: systolic murmur, diastolic murmur, rubs, gallop, clicks Extremities exam: Present: tenderness (Tenderness noted to the anterior aspect of the left knee), normal capillary refill (Capillary refill less than 2 seconds in the left lower extremity), joint swelling (Minimal anterior left knee edema and compared to right knee. No erythema or increased warmth noted to the left knee. ), other (Sensation intact in the left lower extremity). Absent: full ROM (Patient has 90 flexion of the left knee with full extension) , calf tenderness (No tenderness to the calf or posterior left knee, negative Homans sign. No erythema or edema noted to the left calf. Circumference equal to right calf) Neurological exam: Present: alert, oriented X3, CN II-XII intact Psychiatric exam: Present: normal affect, normal mood Course Vital Signs 12/11/18 12/11/18 17:57 19:30 Temperature 98.0 F Pulse Rate 115 H 83 Respiratory 18 16 Rate Blood Pressure 112/71 113/55 O2 Sat by Pulse 94 L 95 Oximetry Medical Decision Making - Medical Decision Making 68-year-old female presents to the emergency department for a chief complaint of left knee pain. The pain has been chronic. Patient received steroid injection after refusing total knee replacement about a week ago today. Patient states pain worsened in the past few days. Patient does admit she is ambulatory on the knee. She did try to take Motrin at home without relief. On exam patient has minimal edema noted of the left anterior knee. Tenderness noted over the L anterior knee. No erythema or increased warmth noted of the left knee. Patient does have about 90 flexion of the left knee. No evidence of infection. Low suspicion of septic joint. Sensation intact in the left lower extremity. No tenderness noted in the left calf or posterior left knee. No erythema or edema of the left calf. Negative Homans sign. I do not suspect DVT at this time. However I did offer patient ultrasound as well as x-ray of the left knee which she refuses. She states she would like to follow-up with orthopedic surgeon instead of having additional imaging studies. She was given Toradol. I did offer to give patient additional pain medication here and at home which she refuses stating pain medication makes her drowsy. Patient will return if she has any worsening symptoms. Disposition Clinical Impression: Knee pain, chronic Disposition: HOME SELF-CARE Condition: Good Instructions: Knee Pain (ED) Additional Instructions: Please take Motrin and Tylenol for pain. Please follow-up with orthopedic surgeon tomorrow. Return here if you have worsening symptoms or fever. Is patient prescribed a controlled substance at d/c from ED?: No Referrals: Richard Tinoco MD [Primary Care Provider] - 1-2 days Time of Disposition: 19:25
[2018-12-11 19:31] VITALS: BP 113/55; PULSE 83; RESP 16
== END 2018-12-11 19:32 | disposition home or self-care (01) ==
LOC: EC 17:33
DX: G89.29 Other chronic pain (principal); M25.562 Pain in left knee; J45.909 Unspecified asthma, uncomplicated; I25.10 Atherosclerotic heart disease of native coronary artery without angina pectoris; K21.9 Gastro-esophageal reflux disease without esophagitis; E78.5 Hyperlipidemia, unspecified; I10 Essential (primary) hypertension; I25.2 Old myocardial infarction; G47.30 Sleep apnea, unspecified; H40.9 Unspecified glaucoma; Z86.73 Personal history of transient ischemic attack (TIA), and cerebral infarction without residual deficits; Z90.49 Acquired absence of other specified parts of digestive tract; Z90.710 Acquired absence of both cervix and uterus; Z99.89 Dependence on other enabling machines and devices; Z98.890 Other specified postprocedural states; Z79.02 Long term (current) use of antithrombotics/antiplatelets; Z79.1 Long term (current) use of non-steroidal anti-inflammatories (NSAID); Z79.899 Other long term (current) drug therapy; Z88.1 Allergy status to other antibiotic agents; Z88.5 Allergy status to narcotic agent
CPT/HCPCS: 99283; 96372; J1885

== ENCOUNTER → 2018-12-21 | Outpatient (CLI) | payer MEDICARE, OTHER ==
[2018-12-21 16:24] LABS: Albumin 4.6 g/dL (3.80-4.90); Anion Gap 9.5 mmol/L (4.00-12.00); Calcium 9.3 mg/dL (8.7-10.3); Carbon Dioxide 25.5 mmol/L (21.6-31.8); Globulin 2.3 g/dL (1.6-3.3); Potassium 4.6 mmol/L (3.5-5.5); Total Bilirubin 0.5 mg/dL (0.2-1.2); Total Protein 6.9 g/dL (6.2-8.2)
== END | disposition home or self-care (01) ==
LOC: LABWHC1 10:06
PROVIDERS: ATTEND Family Medicine
DX: E78.00 Pure hypercholesterolemia, unspecified (principal); I10 Essential (primary) hypertension; E03.9 Hypothyroidism, unspecified; R94.5 Abnormal results of liver function studies; R94.4 Abnormal results of kidney function studies; Z79.899 Other long term (current) drug therapy
CPT/HCPCS: 36415; 80053; 82728

== ENCOUNTER → 2019-01-24 | Outpatient (CLI) | payer MEDICARE, OTHER ==
[2019-01-24 12:31] LABS: Potassium 4.8 mmol/L (3.5-5.5)
== END | disposition home or self-care (01) ==
LOC: LABWHC1 07:30
PROVIDERS: ATTEND Family Medicine
DX: E87.5 Hyperkalemia (principal)
CPT/HCPCS: 36415; 80051

== ENCOUNTER → 2019-01-29 | Outpatient (CLI) | payer MEDICARE, OTHER ==
[2019-01-29 18:44] LABS: Anion Gap 10.2 mmol/L (4.00-12.00); Carbon Dioxide 25.8 mmol/L (21.6-31.8); Potassium 4.8 mmol/L (3.5-5.5)
== END | disposition home or self-care (01) ==
LOC: LABWHC1 07:07
PROVIDERS: ATTEND Family Medicine
DX: E78.5 Hyperlipidemia, unspecified (principal)
CPT/HCPCS: 36415; 80051

== ENCOUNTER 2019-02-07 12:30 | Inpatient (IN) | payer MEDICARE, OTHER ==
[~2019-02-07 12:30] MED LIST: ACETAMINOPHEN TAB 325 MG TAB PO PRN; ACETAMINOPHEN TAB 500 MG TAB PO ONE; BISACODYL 10 MG SUPP RECTAL PRN; DEXAMETHASONE SOD PHOSPHATE 10 MG/ML 1 ML VIAL IV ONE; HYDROcodone/APAP 10-325MG 1 EACH TAB PO PRN; HYDROcodone/APAP 5-325MG 1 EACH TAB PO PRN; HYDROcodone/APAP 7.5-325MG 1 EACH TAB PO PRN; HYDROmorphone 0.5 MG/0.5 ML SYRINGE IVP PRN; LIDOCAINE 1% 20 ML VIAL (10MG/ML) FOR IV START INTRADERMA PRN; MAGNESIUM HYDROXIDE 2,400 MG/10 ML CUP PO PRN; MELOXICAM 7.5 MG TAB PO ONE; MIDAZOLAM (PF) 2 MG/2 ML VIAL IV PRN; NA PHOS,M-B/NA PHOS,DI-BA 133 ML ENEMA RECTAL PRN; NALOXONE 0.4 MG/ML 1 ML VIAL IV PRN; ONDANSETRON 4 MG/2 ML VIAL IVP ONE; ONDANSETRON 4 MG/2 ML VIAL IVP PRN; SCOPOLAMINE 1.5MG/72HR PATCH TRANSDERM ONE; TRANEXAMIC ACID 1,000 MG in SODIUM CHLORIDE 0.9% 100 ML IVPB ONE; ceFAZolin IN SWFI 2 GM/20 ML SYRINGE IVP ONE; traMADol 50 MG TAB PO PRN
[2019-02-07] MEDS: LACTATED RINGERS 1,000 ML IV SCH ×2 (14:50→21:23)
[2019-02-07] MEDS ORDERED: PROPOFOL 10 MG/ML 20 ML VIAL IV ONE (16:32)
[2019-02-07] MEDS ORDERED: SODIUM CHLORIDE 0.9% 100 ML BAG ONE (16:32)
[2019-02-07] MEDS ORDERED: MIDAZOLAM 2 MG/2 ML VIAL ONE (16:32)
[2019-02-07] MEDS ORDERED: LIDOCAINE 1% INJ 10MG/ML (20 ML MDV) ONE (16:32)
[2019-02-07] MEDS ORDERED: fentaNYL (PF) 50 MCG/ML 2 ML AMP ONE (16:32)
[2019-02-07] MEDS ORDERED: TRANEXAMIC ACID 1,000 MG/10 ML VIAL ONE (16:32)
[2019-02-07] MEDS ORDERED: SUCCINYLCHOLINE CHLORIDE 100 MG/5 ML SYR IV ONE (16:32)
[2019-02-07] MEDS ORDERED: ceFAZolin 3,000 MG in SODIUM CHLORIDE 0.9% IRRIGATIO 3,000 ML IRRIGATION ONE (17:08)
[2019-02-07] MEDS: ROPIVACAINE 246.25 MG, EPINEPHrine 0.5 MG, KETOROLAC 30 MG, cloNIDine HCL/PF 80 MCG, WA... MISCELLANE ONE ×10 (17:48→17:51)
[2019-02-07] MEDS: HYDROmorphone 0.5 MG/0.5 ML SYRINGE IVP PRN ×5 (18:41→23:42)
--- NOTE | 2019-02-07 18:59 | XR ---
EXAMINATION TYPE: XR knee limited LT DATE OF EXAM: 02/07/2019 COMPARISON: NONE HISTORY: Postop knee surgery TECHNIQUE: 2 views FINDINGS: There is a left knee prosthesis. Components are in anatomic position. IMPRESSION: No complicating process seen.
[2019-02-07 20:58] VITALS: BMI 33.7
--- NOTE | 2019-02-07 21:11 | OP ---
OPERATIVE REPORT DATE OF PROCEDURE: 02/07/2019 SURGEON: Dylan Mark MD MECHANICAL STRIPER: YUVAL Horton. PREOPERATIVE DIAGNOSIS: Left knee osteoarthrosis. POSTOPERATIVE DIAGNOSIS: Left knee osteoarthrosis. OPERATION: Left total knee arthroplasty. ANESTHESIA: General endotracheal. ESTIMATED BLOOD LOSS: 100 mL. TOURNIQUET TIME: 36 minutes at 250 mmHg. COMPLICATIONS: None apparent. DRAINS: None. DISPOSITION: Post-Anesthesia Care Unit. INDICATIONS: Nidia is a very pleasant 68-year-old female with longstanding history of left knee pain. History and physical examination are consistent with advanced left knee osteoarthrosis. She has been through significant nonoperative management up to this point. Further treatment options were discussed and she has decided to go forward with a left total knee arthroplasty. The risks of the procedure were discussed with her in detail. These risks include but are not limited to risk of infection, nerve damage, bleeding, pain, and a small risk of deep vein thrombosis which could lead to fatal pulmonary embolism. There is also a risk of loosening of the implant which could require revision operation. The patient understands these risks. All of her questions were answered to her satisfaction. Appropriate informed consent was obtained. DESCRIPTION OF THE PROCEDURE: The patient was identified in preoperative holding area. Surgical site was marked by both the patient and myself. She was given 2 grams of Ancef IV for prophylactic purposes. She was then transferred to the operative suite. She was placed supine on the operating room table. General anesthetic was then administered and dosed per the anesthesia department without apparent complication. Examination under anesthesia was then performed. The patient was 2 to 3 degrees shy of full extension. She had 100 degrees of flexion. The medial collateral ligament, lateral collateral ligament and posterior cruciate ligaments were stable. Tourniquet was then placed high on the left upper thigh, well padded in preparation for surgery. The patient's left lower extremity was then prepped and draped in the usual sterile fashion. Standard surgical pause was undertaken to ensure that we were operating on the correct site and that appropriate preoperative antibiotics had been given. All staff in the room were in agreement and we proceeded. The outlines of the patella were marked with a surgical pen. A planned 12 cm vertical incision was centered over the patella and was marked with a surgical pen. The leg was then exsanguinated with an Esmarch dressing. The knee was then flexed and the tourniquet was inflated to 250 mmHg. The total tourniquet time for the procedure was 36 minutes. Incision was then made with a 10-blade scalpel. Dissection was carried down sharply to the overlying fascia. Great care was taken to minimize the skin flaps. The knee was then exposed using a standard medial parapatellar approach. A small cuff of quadriceps tendon was then left for suturing. She was in a bit of varus preoperatively. A standard medial release was then made. Superficial medial collateral ligament was dissected off the bone around to the posterior aspect of the proximal tibia. The medial meniscus was then excised as well. The lateral meniscus was also released anteriorly. The leg was then externally rotated. The patella was everted. The knee was flexed. The retractors were then placed to protect the collateral ligaments. I then proceeded to remove the infrapatellar fat pad. This was excised sharply tangentially with fibers of the patellar tendon. I then proceeded to remove peripheral osteophytes. This was done with a rongeur. I then proceed with the distal femoral resection. She did have near-full extension. A planned 9 mm resection was then done. The femoral canal was then entered in midline of the femur approximately 10 mm anterior to the origin of the posterior cruciate ligament. The kevin was then advanced down the center of the femur and placed intramedullary. Based on the preoperative radiographs, the angle between the anatomic and mechanical axis of the femur was approximately 4 to 5 degrees. The valgus angle of the distal femoral cutting guide was then set at 4 degrees for the left knee. This femoral cutting guide was then advanced over the intramedullary kevin. This was seated firmly against the femur. I then, as mentioned, planned to take 9 mm off the distal femur. The cutting block was then secured to the femur with pins. The jig was then removed. The distal femoral cut was made through the slot of the block. The pin was then removed. The distal femoral cutting block was removed. The accuracy of the distal femoral cuts was checked with 2 flat bars. I then proceeded with femoral sizing. The posterior referencing sizing guide was held firmly against the resected distal surface of the femur. The posterior condyles were resting on the posterior plane of the guide. The sizing stylus was then placed onto the anterior femur. The size was measured as a size 5 narrow. I then assessed for femoral rotation. The plan was for 3 degrees of external rotation. Three degrees of external rotation was placed onto the jig. These holes were then marked. I then confirmed the rotation by 3 separate methods. This was done using epicondylar axis as well as Whitesides line and posterior referencing. It was deemed that the external rotation was proper. I then went forward with placing the femoral cutting block. This was placed over the previously placed pin holes. The Ronny wing was then placed onto the anterior slots to ensure that we would not notch the anterior femur with the anterior femoral cut. I then proceeded with the anterior femoral cut. This was flush with the anterior cortex of the femur. The posterior cuts were then made, followed by the anterior chamfer cut and then the posterior chamfer cut. The cutting block was then removed. Throughout the resection, the collateral ligaments were protected with retractors. I then placed a trial size 5 femur. It fit flush with the distal end of the femur. As mentioned, it was slightly wide, but the narrow fit very nicely. The drill holes were then made. I then proceeded with the tibial cut. I planned for a cruciate-retaining knee. The guide was placed and set for varus, valgus and for slope. The height was set for an approximately 2 mm resection from the medial tibial plateau, which was the lower side. I was happy with the alignment and the amount of resection. The cutting block was then pinned to the proximal tibia. The alignment kevin was removed and the proximal tibia was resected with a reciprocating saw. Again this was done with retractors protecting the collateral ligaments as well as the posterior cruciate ligament. I then proceeded to evaluate the flexion and extension gaps. A 10 mm block was then placed. The flexion and extension gaps were equal. I then proceeded with resection of the posterior osteophytes. She had very minimal posterior osteophytes. This was done using a curved osteotome. This resected the posterior osteophytes, and posterior capsule stripping was done off the posterior aspect of the femur at this time. The osteophytes were then removed. I then proceeded with resection of the patella. The thickness of the patella was measured using the caliper. The thickness was 22 mm. The thickness of the anticipated patellar dome was taken into account. Resection was then performed and confirmed to be equal in 4 quadrants using a caliper. Approximately 14 mm of bone remained after the resection. A 29 x 8 standard patellar trial was then placed. The holes were drilled. The trial was then placed. I then proceeded with sizing the tibial plate. A size C tibial plate fit very nicely. I then placed the trial femur, the tibial tray and the patellar button. A 10 mm trial tibial insert was also placed. The components fit very nicely. She had full extension and flexion. The extension and flexion gaps were equal and stable to both varus and valgus stress. The patella tracked appropriately. The tibial tray rotation was then marked with a Bovie. This was externally rotated properly. I then proceeded with tibial preparation. I first drilled the femoral holes and removed the femoral component. The tibial tray was then set for proper external rotation as well as mediolateral placement onto the tibia. It was then pinned into place. I then proceeded with punching the keel. I then decided to proceed with cementing of all of our components. The knee was thoroughly irrigated with sterile saline solution via pulse lavage. The lateral geniculate artery was identified and cauterized. All blood was removed from the bone of the tibia, femur and patella with pulse lavage. I then proceed with cementing. Two packs of antibiotic bone cement were prepared on the back table by the air conditioning technician. I then proceeded with cementing of the tibia first. The cement was impacted into the keel as well as deeply seated into the bone. A second coat of cement was then placed. The tibia was then impacted into place. Excess cement was removed with Coco's and Joker's. I then proceeded with cementing of the femoral component. The femoral component was also cemented using standard technique. Excess cement was removed. A 10 mm trial insert was then placed into the knee. It was brought into full extension with a constant axial load placed until the cement had hardened. The patellar component was then cemented. This was held firmly with a compressive device until the cement had dried. When the cement had dried, the knee was taken out of extension. All excess cement was removed from around the prosthesis. I then trialed the knee with a 10 mm insert. Flexion and extension gaps were appropriate. The knee was stable. It came into full extension. I decided to go forward with a 10 mm cross-linked cruciate-retaining tibial insert. Polyethylene was then placed onto the tibial tray and locked into place. The knee was then reduced. The knee was again further irrigated with sterile saline solution with antibiotic added. The tourniquet was then deflated. Total tourniquet time for the procedure was 36 minutes at 250 mmHg. Final components were Sarah Persona size 5 narrow cruciate-retaining femoral component, a size C tibial tray, a 10 mm medial- congruent cruciate-retaining polyethylene insert, and a 29 x 8 mm patella. I then proceeded with closure. Again the knee was thoroughly irrigated. The quadriceps tendon and the medial retinaculum were reapproximated with #2 Ethibond suture. The extensor mechanism was then closed with a running #2 Quill suture. Subcutaneous tissues were closed with 2-0 Vicryl interrupted suture. The skin was closed with a running 3-0 Quill suture. Dermabond was applied to the incision. Sterile compressive dressing was then applied. All sponge and needle counts were deemed correct prior to closure. The patient tolerated the procedure without apparent complication. She was transferred to the recovery room in stable condition. MMODL / IJN: [id number] /
[2019-02-07] MEDS ORDERED: TEMAZEPAM 15 MG CAP PO PRN (22:00)
[2019-02-07] MEDS: SENNOSIDES-DOCUSATE SODIUM 1 EACH TAB PO SCH (23:42)
[2019-02-08] MEDS: ceFAZolin IN SWFI 2 GM/20 ML SYRINGE IVP SCH ×2 (01:27→09:04)
[2019-02-08] MEDS: LACTATED RINGERS 1,000 ML IV SCH ×3 (02:44→16:14)
[2019-02-08] MEDS: HYDROmorphone 0.5 MG/0.5 ML SYRINGE IVP PRN ×3 (03:57→23:00)
[2019-02-08] MEDS: LEVOTHYROXINE 25 MCG TAB PO SCH (05:39)
[2019-02-08 08:22] LABS: Basophils % (A) 0 %; Eosinophils % (A) 0 %; HCT 36.3 % (34.0-46.0); HGB 11.4 gm/dL (11.4-16.0); Lymphocytes # (A) 0.7 k/uL (1.0-4.8); Lymphocytes % (A) 7 %; MCH 28.3 pg (25.0-35.0); MCHC 31.3 g/dL (31.0-37.0); MCV 90.4 fL (80.0-100.0); Mean Platelet Volume 7.6; Monocytes # (A) 0.4 k/uL (0-1.0); Monocytes % (A) 3 %; Neutrophils # (A) 10.1 k/uL (1.3-7.7); Neutrophils % (A) 90 %; Platelet Count 196 k/uL (150-450); RBC 4.02 m/uL (3.80-5.40); RDW 13.6 % (11.5-15.5); WBC 11.2 k/uL (3.8-10.6)
[2019-02-08] MEDS: HYDROcodone/APAP 5-325MG 1 EACH TAB PO PRN ×3 (08:58→21:56)
[2019-02-08] MEDS: LISINOPRIL 2.5 MG TAB PO SCH (08:59)
[2019-02-08] MEDS: CLOPIDOGREL 75 MG TAB PO SCH (09:00)
[2019-02-08] MEDS: PANTOPRAZOLE 40 MG TABLET PO SCH (09:01)
[2019-02-08] MEDS: ISOSORBIDE DINITRATE 10 MG TAB PO SCH (09:02)
[2019-02-08] MEDS: AMITRIPTYLINE HCL 50 MG TAB PO SCH ×2 (09:02→20:55)
[2019-02-08] MEDS: TIMOLOL 0.5% OPHTH DROPS 5 ML BTL BOTH EYES SCH ×2 (09:03→20:56)
[2019-02-08] MEDS: BRIMONIDINE TARTRATE 0.2% DROPS 5 ML BTL BOTH EYES SCH ×2 (09:04→20:57)
--- NOTE | 2019-02-08 10:06 | P.PN ---
Subjective Progress Note Date: 02/08/19 Principal diagnosis: S/P Left TKA Patient is seen at bedside this morning. She is postop day #1 from left total knee arthroplasty. She has pain at the surgical site as expected but denies any new complaints. She denies numbness, tingling or calf pain. Review of systems is negative for fever, chills, chest pain, shortness of breath or other Objective - Vital Signs Vital signs: Vital Signs Temp 98.7 F 02/08/19 07:00 Pulse 105 H 02/08/19 07:00 Resp 12 02/08/19 07:00 BP 113/70 02/08/19 07:00 Pulse Ox 95 02/08/19 07:00 Intake & Output 02/07/19 02/08/19 02/08/19 18:59 06:59 18:59 Intake Total 701 100 Output Total 100 Balance 601 100 Intake: IV 701 Oral 100 Output: Estimated Blood Loss 100 Other: Voiding Method Toilet # Voids 2 - Exam Inspection reveals a benign surgical wound. There is no active bleeding or drainage. Neurovascular status is intact throughout the lower extremity with motor and sensation fully intact. Calf is soft and nontender. 2+ dorsalis pedis pulse and less than 2 second cap refill is present. - Constitutional General appearance: Present: no acute distress - Labs CBC & Chem 7: 02/08/19 07:21 Labs: Abnormal Lab Results - Last 24 Hours (Table) 02/08/19 Range/Units 07:21 WBC 11.2 H (3.8-10.6) k/uL Neutrophils # 10.1 H (1.3-7.7) k/uL Lymphocytes # 0.7 L (1.0-4.8) k/uL Assessment and Plan (1) Osteoarthritis of left knee Narrative/Plan: She will continue with routine postop orthopedic protocol including pain management, wound care, PT, DVT prophylaxis and medical management. Expect that she will discharge to home tomorrow Current Visit: Yes Status: Acute Priority: Medium Code(s): M17.12 - UNILATERAL PRIMARY OSTEOARTHRITIS, LEFT KNEE SNOMED Code(s): 567123036237458 (2) Status post total left knee replacement Current Visit: Yes Status: Acute Priority: Medium Code(s): Z96.652 - PRESENCE OF LEFT ARTIFICIAL KNEE JOINT SNOMED Code(s): 8544818346828 Time with Patient: Less than 30
--- NOTE | 2019-02-08 11:02 | P.CONS ---
History of Present Illness - History of Present Illness This is a pleasant 68 years old female with past medical history of asthma, c oronary artery disease, CVA/TIA, GERD, hyperlipidemia, hypertension, sleep apnea, posterior arthritis. Patient here for elective left total knee arthroplasty. Surgery was done yesterday. Patient is tolerating pain well. No chest pain or dyspnea. She has some cough with phlegm. No change in mental status. No change in urine or bowel habits. Patient is tolerating diet well Patient didn't have bowel movement but does not unusual for her as she has 1 every 3-4 days. No fever. Labs shows mild leukocytosis, mostly reactive secondary to surgery. We'll keep monitoring WBC. Review of Systems CONSTITUTIONAL: No fever, no malaise, no fatigue. HEENT: No recent visual problems or hearing problems. Denied any sore throat. CARDIOVASCULAR: No orthopnea, PND, no palpitations, no syncope. PULMONARY: No shortness of breath, no cough, no hemoptysis. GASTROINTESTINAL: No diarrhea, no nausea, no vomiting, no abdominal pain. Normoactive bowel sounds. NEUROLOGICAL: No headaches, no weakness, no numbness. HEMATOLOGICAL: Denies any bleeding or petechiae. GENITOURINARY: Denies any burning micturition, frequency, or urgency. MUSCULOSKELETAL/RHEUMATOLOGICAL: Denies any joint pain, swelling, or any muscle pain. ENDOCRINE: Denies any polyuria or polydipsia. Past Medical History Past Medical History: Asthma, Coronary Artery Disease (CAD), CVA/TIA, Eye Disorder, GERD/Reflux, Hyperlipidemia, Hypertension, Myocardial Infarction (MA), Musculoskeletal Disorder, Sleep Apnea/CPAP/BIPAP Additional Past Medical History / Comment(s): GLAUCOMA JOSE ALFREDO. EYES- GLASSES DAILY USE, IGA RESPONSE TRIGGERS ASTHMA, TRIGGER FINGER, LUMBAR DDD, TIA 2012- NO RESIDUAL, USES C-PAP Last Myocardial Infarction Date:: 09/2005 History of Any Multi-Drug Resistant Organisms: None Reported Past Surgical History: Appendectomy, Back Surgery, Bladder Surgery, Breast Surgery, Cholecystectomy, Heart Catheterization, Hysterectomy, Orthopedic Surge ry Additional Past Surgical History / Comment(s): LT KNEE ARTHROSCOPY. LT CTR. HX KIDNEY STONE REMOVAL 10/2012, JOSE ALFREDO LASER EYE SURG. PAIN CLINIC PROCEDURES, BREAST BX LT BREAST, LT ANKLE SX, RECENTLY FINISHED ANTIOBICS FOR BLADDER INFECTION. Past Anesthesia/Blood Transfusion Reactions: No Reported Reaction Past Psychological History: No Psychological Hx Reported Smoking Status: Never smoker Past Alcohol Use History: None Reported Past Drug Use History: None Reported - Past Family History Mother Family Medical History: Cancer, Hypertension Additional Family Medical History / Comment(s): FROM THYROID CA, Father Family Medical History: Cancer Additional Family Medical History / Comment(s): FROM STOMACH CA, HX ALCOHOLISM Medications and Allergies Home Medications Medication Instructions Recorded Confirmed Type Clopidogrel Bisulfate [Clopidogrel] 75 mg PO DAILY 06/10/14 02/07/19 History Isosorbide Dinitrate 30 mg PO DAILY 06/10/14 02/07/19 History Meloxicam 7.5 mg PO DAILY 06/10/14 02/07/19 History Montelukast [Singulair] 10 mg PO HS 10/01/15 02/07/19 History Brimonidine Tartrate [Alphagan P 1 drops BOTH EYES BID 04/07/16 02/07/19 History 0.15% Ophth Soln] Diltiazem HCl [Diltiazem ER] 360 mg PO HS 04/07/16 02/07/19 History Omeprazole 40 mg PO AC-BRKFST 04/07/16 02/07/19 History Timolol 0.5% Ophth Soln [Timoptic 1 drop BOTH EYES BID 04/07/16 02/07/19 History 0.5% Ophth Soln] Amitriptyline HCl 50 mg PO BID 01/29/19 02/07/19 History Ergocalciferol [Vitamin D2] 50,000 unit PO SA 01/29/19 02/07/19 History Lisinopril [Zestril] 2.5 mg PO DAILY 01/29/19 02/07/19 History Levothyroxine Sodium [Synthroid] 25 mcg PO DAILY 02/07/19 02/07/19 History Allergies Allergy/AdvReac Type Severity Reaction Status Date / Time codeine Allergy Nausea & Verified 02/07/19 17:55 Vomiting & Diarrhea levofloxacin [From Levaquin] Allergy Rapid Verified 02/07/19 17:55 Heart Rate Physical Exam Vitals: Vital Signs Temp Pulse Resp BP BP Pulse Ox 02/08/19 07:00 98.7 F 105 H 12 113/70 95 02/08/19 00:50 98.2 F 100 20 110/68 91 L 02/07/19 21:51 100 120/81 94 L 02/07/19 21:36 101 H 118/70 92 L 02/07/19 21:21 101 H 123/79 93 L 02/07/19 21:06 105 H 130/79 93 L 02/07/19 20:51 106 H 124/81 93 L 02/07/19 20:36 107 H 131/79 92 L 02/07/19 20:30 93 L 02/07/19 20:21 107 H 126/79 91 L 02/07/19 20:15 97.4 F L 112 H 20 127/77 91 L 02/07/19 20:06 110 H 127/77 90 L 02/07/19 19:32 106 H 16 123/66 96 02/07/19 19:15 104 H 16 119/66 99 02/07/19 19:01 101 H 16 128/66 99 02/07/19 18:45 104 H 16 129/67 99 02/07/19 18:34 98 F 107 H 16 127/56 99 02/07/19 14:32 98.0 F 115 H 16 127/61 92 L Intake and Output 02/07/19 02/08/19 02/08/19 22:59 06:59 14:59 Intake Total 601 100 Output Total 100 Balance 501 100 Intake: IV 601 Oral 100 Output: Estimated Blood Loss 100 Other: Voiding Method Toilet # Voids 2 GENERAL: The patient is alert and oriented x3, not in any acute distress. Well developed, well nourished. HEENT: Pupils are round and equally reacting to light. EOMI. No scleral icterus. No conjunctival pallor. Normocephalic, atraumatic. No pharyngeal erythema. No thyromegaly. CARDIOVASCULAR: S1 and S2 present. No murmurs, rubs, or gallops. PULMONARY: Chest is clear to auscultation, no wheezing or crackles. ABDOMEN: Soft, nontender, nondistended, normoactive bowel sounds. No palpable organomegaly. MUSCULOSKELETAL: No joint swelling or deformity. -EXTREMITIES: No cyanosis, clubbing, or pedal edema. Right knee wound is clean and healing with minimal erythema and swelling. Expected from surgery NEUROLOGICAL: Gross neurological examination did not reveal any focal deficits. SKIN: No rashes. Results CBC & Chem 7: 02/08/19 07:21 Labs: Abnormal Lab Results - Last 24 Hours (Table) 02/08/19 Range/Units 07:21 WBC 11.2 H (3.8-10.6) k/uL Neutrophils # 10.1 H (1.3-7.7) k/uL Lymphocytes # 0.7 L (1.0-4.8) k/uL Assessment and Plan Assessment: Degenerative joint disease, osteoarthritis. Status post left total knee arthroplasty Mild leukocytosis, mostly reactive. The right for antibiotics for now. History of asthma, no connective tissue History of coronary artery disease History of CVA/TIA History of GERD Hyperlipidemia Essential hypertension Sleep apnea. Plan: This is a pleasant 68 years old female who presents for left total knee arthroplasty. Continue with pain management as per primary team. Recommend DVT prophylaxis which is also managed by the primary team. We'll keep monitoring for the patient Labs and medication were reviewed.. Continue same treatment. Continue with symptomatic treatment. Resume home medication. Monitor lytes and vitals. DVT and GI prophylaxis. Further recommendations of the clinical course of the patient Thank you for consulting us
[2019-02-08] MEDS: MULTIVITAMINS, THERA 1 EACH TAB PO SCH (16:11)
--- NOTE | 2019-02-08 18:47 | P.CONS ---
History of Present Illness - Reason for Consult Consult date: 02/08/19 Medical management for primary care - Chief Complaint Elective left total knee arthroplasty - History of Present Illness Patient is a well-known patient to take both Dr. Tinoco and myself long-s jean patient of approximately 20+ years who presents to the hospital for elective left total knee arthroplasty secondary to severe arthritis and pain Review of Systems Constitutional: Reports as per HPI Ears, nose, mouth and throat: Reports as per HPI Cardiovascular: Reports as per HPI Respiratory: Reports as per HPI Gastrointestinal: Reports as per HPI Genitourinary: Reports as per HPI Menstruation: Reports as per HPI (Severe pain and stiffness gait abnormalities of the left knee) Integumentary: Reports as per HPI Neurological: Reports as per HPI Past Medical History Past Medical History: Asthma, Coronary Artery Disease (CAD), CVA/TIA, Eye Disorder, GERD/Reflux, Hyperlipidemia, Hypertension, Myocardial Infarction (NC), Musculoskeletal Disorder, Sleep Apnea/CPAP/BIPAP Additional Past Medical History / Comment(s): GLAUCOMA JOSE ALFREDO. EYES- GLASSES DAILY USE, IGA RESPONSE TRIGGERS ASTHMA, TRIGGER FINGER, LUMBAR DDD, TIA 2012- NO RESIDUAL, USES C-PAP Last Myocardial Infarction Date:: 09/2005 History of Any Multi-Drug Resistant Organisms: None Reported Past Surgical History: Appendectomy, Back Surgery, Bladder Surgery, Breast Surgery, Cholecystectomy, Heart Catheterization, Hysterectomy, Orthopedic Surgery Additional Past Surgical History / Comment(s): LT KNEE ARTHROSCOPY. LT CTR. HX KIDNEY STONE REMOVAL 10/2012, JOSE ALFREDO LASER EYE SURG. PAIN CLINIC PROCEDURES, BREAST BX LT BREAST, LT ANKLE SX, RECENTLY FINISHED ANTIOBICS FOR BLADDER INFECTION. Past Anesthesia/Blood Transfusion Reactions: No Reported Reaction Past Psychological History: No Psychological Hx Reported Smoking Status: Never smoker Past Alcohol Use History: None Reported Past Drug Use History: None Reported - Past Family History Mother Family Medical History: Cancer, Hypertension Additional Family Medical History / Comment(s): FROM THYROID CA, Father Family Medical History: Cancer Additional Family Medical History / Comment(s): FROM STOMACH CA, HX ALCOHOLISM Medications and Allergies Home Medications Medication Instructions Recorded Confirmed Type Clopidogrel Bisulfate [Clopidogrel] 75 mg PO DAILY 06/10/14 02/07/19 History Isosorbide Dinitrate 30 mg PO DAILY 06/10/14 02/07/19 History Meloxicam 7.5 mg PO DAILY 06/10/14 02/07/19 History Montelukast [Singulair] 10 mg PO HS 10/01/15 02/07/19 History Brimonidine Tartrate [Alphagan P 1 drops BOTH EYES BID 04/07/16 02/07/19 History 0.15% Ophth Soln] Diltiazem HCl [Diltiazem ER] 360 mg PO HS 04/07/16 02/07/19 History Omeprazole 40 mg PO AC-BRKFST 04/07/16 02/07/19 History Timolol 0.5% Ophth Soln [Timoptic 1 drop BOTH EYES BID 04/07/16 02/07/19 History 0.5% Ophth Soln] Amitriptyline HCl 50 mg PO BID 01/29/19 02/07/19 History Ergocalciferol [Vitamin D2] 50,000 unit PO SA 01/29/19 02/07/19 History Lisinopril [Zestril] 2.5 mg PO DAILY 01/29/19 02/07/19 History Levothyroxine Sodium [Synthroid] 25 mcg PO DAILY 02/07/19 02/07/19 History Allergies Allergy/AdvReac Type Severity Reaction Status Date / Time codeine Allergy Nausea & Verified 02/07/19 17:55 Vomiting & Diarrhea levofloxacin [From Levaquin] Allergy Rapid Verified 02/07/19 17:55 Heart Rate Physical Exam Osteopathic Statement: *. No significant issues noted on an osteopathic structural exam other than those noted in the History and Physical/Consult. Vitals: Vital Signs Temp Pulse Resp BP BP Pulse Ox 02/08/19 18:05 98 02/08/19 16:00 14 02/08/19 14:45 98.2 F 98 14 106/64 02/08/19 07:00 98.7 F 105 H 12 113/70 95 02/08/19 00:50 98.2 F 100 20 110/68 91 L 02/07/19 21:51 100 120/81 94 L 02/07/19 21:36 101 H 118/70 92 L 02/07/19 21:21 101 H 123/79 93 L 02/07/19 21:06 105 H 130/79 93 L 02/07/19 20:51 106 H 124/81 93 L 02/07/19 20:36 107 H 131/79 92 L 02/07/19 20:30 93 L 02/07/19 20:21 107 H 126/79 91 L 02/07/19 20:15 97.4 F L 112 H 20 127/77 91 L 02/07/19 20:06 110 H 127/77 90 L 02/07/19 19:32 106 H 16 123/66 96 02/07/19 19:15 104 H 16 119/66 99 02/07/19 19:01 101 H 16 128/66 99 02/07/19 18:45 104 H 16 129/67 99 Intake and Output 02/08/19 02/08/19 02/08/19 06:59 14:59 22:59 Intake Total 100 Balance 100 Intake: Oral 100 Other: Voiding Method Toilet # Voids 2 3 General: [Patient awake, alert and oriented times 3. Patient in no acute distress.] HEENT: [PERRL. EOMI. No pharyngeal erythema or exudate.] Neck: [No adenopathy.] Cardiac: [Heart regular in rate and rhythm. No S3. No S4. No clicks, rubs. No murmur.] Lungs: [Clear to auscultation bilaterally.] Abdomen: [No mass. No organomegaly. Bowel sounds presnt and normoactive in all 4 quadrants.] Extremes: Patient up ambulating with walker incision clean and dry left total knee minimal swelling : Normal female genitalia Musculoskeletal: [No joint erythema, edema or tenderness.] Skin: [No rash.] Neurologic: [No lateralizing deficits. CN II - XII grossly intact.] Lymphatic: [No adenopathy.] Results CBC & Chem 7: 02/08/19 07:21 Labs: Abnormal Lab Results - Last 24 Hours (Table) 02/08/19 Range/Units 07:21 WBC 11.2 H (3.8-10.6) k/uL Neutrophils # 10.1 H (1.3-7.7) k/uL Lymphocytes # 0.7 L (1.0-4.8) k/uL Assessment and Plan (1) Osteoarthritis of left knee Current Visit: Yes Status: Acute Priority: Medium Code(s): M17.12 - UNILATERAL PRIMARY OSTEOARTHRITIS, LEFT KNEE SNOMED Code(s): 947606489523798 (2) Status post total left knee replacement Current Visit: Yes Status: Acute Priority: Medium Code(s): Z96.652 - PRESENCE OF LEFT ARTIFICIAL KNEE JOINT SNOMED Code(s): 0573030272831 Plan: Past post-left total knee arthroplasty Patient doing well Resume home meds Reevaluate in the morning Time with Patient: Greater than 30
[2019-02-08] MEDS: SENNOSIDES-DOCUSATE SODIUM 1 EACH TAB PO SCH (20:55)
[2019-02-08] MEDS: DILTIAZEM CD 180 MG CAP.ER.24H PO SCH (20:56)
[2019-02-08] MEDS: MONTELUKAST 10 MG TAB PO SCH (20:56)
[2019-02-09] MEDS: HYDROmorphone 0.5 MG/0.5 ML SYRINGE IVP PRN (02:49)
[2019-02-09] MEDS: LACTATED RINGERS 1,000 ML IV SCH ×3 (03:45→17:54)
[2019-02-09] MEDS: HYDROcodone/APAP 5-325MG 1 EACH TAB PO PRN ×3 (05:43→18:08)
[2019-02-09] MEDS: LEVOTHYROXINE 25 MCG TAB PO SCH (05:43)
[2019-02-09 08:33] LABS: Basophils % (A) 0 %; Eosinophils % (A) 1 %; HCT 35.6 % (34.0-46.0); HGB 11.6 gm/dL (11.4-16.0); Lymphocytes # (A) 1.1 k/uL (1.0-4.8); Lymphocytes % (A) 17 %; MCH 29.3 pg (25.0-35.0); MCHC 32.5 g/dL (31.0-37.0); MCV 90.3 fL (80.0-100.0); Mean Platelet Volume 7.6; Monocytes # (A) 0.3 k/uL (0-1.0); Monocytes % (A) 5 %; Neutrophils # (A) 4.6 k/uL (1.3-7.7); Neutrophils % (A) 76 %; Platelet Count 203 k/uL (150-450); RBC 3.94 m/uL (3.80-5.40); RDW 13.9 % (11.5-15.5); WBC 6.1 k/uL (3.8-10.6)
[2019-02-09] MEDS: LISINOPRIL 2.5 MG TAB PO SCH (09:24)
[2019-02-09] MEDS: CLOPIDOGREL 75 MG TAB PO SCH (09:24)
[2019-02-09] MEDS: PANTOPRAZOLE 40 MG TABLET PO SCH (09:24)
[2019-02-09] MEDS: BRIMONIDINE TARTRATE 0.2% DROPS 5 ML BTL BOTH EYES SCH ×2 (09:25→20:26)
[2019-02-09] MEDS: TIMOLOL 0.5% OPHTH DROPS 5 ML BTL BOTH EYES SCH ×2 (09:25→20:27)
[2019-02-09] MEDS: ISOSORBIDE DINITRATE 10 MG TAB PO SCH (09:26)
[2019-02-09] MEDS: AMITRIPTYLINE HCL 50 MG TAB PO SCH ×2 (09:26→20:26)
--- NOTE | 2019-02-09 10:01 | P.DS ---
Providers Date of admission: 02/07/19 14:08 Expected date of discharge: 02/09/19 Attending physician: Dylan aMrk Consults: 02/08/19 18:35 Consult Physician Routine Consulting Provider: Dominik Black Jr Consult Reason/Comments: post op medical management Do you want consulting provider notified?: Yes Primary care physician: Richard Tinoco - Discharge Diagnosis(es) (1) Osteoarthritis of left knee Patient was admitted to the OR on 02/07/2019 to undergo a left total knee arthroplasty. She had failed conservative measures as an outpatient and desired to proceed with elective surgery after given informed consent. She underwent the above procedure which she tolerated well without complication. Postoperative hospital course has remained without complication. On day of discharge he is afebrile, vital signs stable, labs within acceptable ranges, tolerating by mouth meds and diet, voiding without difficulty, positive flatus, denies abdominal pain or calf pain, pain is controlled on oral pain medication and has no new complaints. Wound is benign, neurovascular status is intact, calf is soft and nontender, abdomen soft and nontender. Review of systems is negative for numbness, tingling, fever, chills, chest pain, shortness breath, nausea, vomiting, dizziness, headaches, slurred speech or other Current Visit: Yes Status: Acute Priority: Medium (2) Status post total left knee replacement Current Visit: Yes Status: Acute Priority: Medium Patient Condition at Discharge: Good Plan - Discharge Summary Discharge Rx Participant: Yes New Discharge Prescriptions: New Docusate [Colace] 100 mg PO BID #60 capsule HYDROcodone/APAP 7.5-325MG [[place] 7.5-325] 1 - 2 each PO Q6HR PRN #56 tab PRN Reason: Pain No Action Isosorbide Dinitrate 30 mg PO DAILY Clopidogrel Bisulfate [Clopidogrel] 75 mg PO DAILY Meloxicam 7.5 mg PO DAILY Montelukast [Singulair] 10 mg PO HS Brimonidine Tartrate [Alphagan P 0.15% Ophth Soln] 1 drops BOTH EYES BID Timolol 0.5% Ophth Soln [Timoptic 0.5% Ophth Soln] 1 drop BOTH EYES BID Diltiazem HCl [Diltiazem ER] 360 mg PO HS Omeprazole 40 mg PO AC-BRKFST Ergocalciferol [Vitamin D2] 50,000 unit PO SA Amitriptyline HCl 50 mg PO BID Lisinopril [Zestril] 2.5 mg PO DAILY Levothyroxine Sodium [Synthroid] 25 mcg PO DAILY Discharge Medication List Clopidogrel Bisulfate [Clopidogrel] 75 mg PO DAILY 06/10/14 [History] Isosorbide Dinitrate 30 mg PO DAILY 06/10/14 [History] Meloxicam 7.5 mg PO DAILY 06/10/14 [History] Montelukast [Singulair] 10 mg PO HS 10/01/15 [History] Brimonidine Tartrate [Alphagan P 0.15% Ophth Soln] 1 drops BOTH EYES BID 04/07/16 [History] Diltiazem HCl [Diltiazem ER] 360 mg PO HS 04/07/16 [History] Omeprazole 40 mg PO AC-BRKFST 04/07/16 [History] Timolol 0.5% Ophth Soln [Timoptic 0.5% Ophth Soln] 1 drop BOTH EYES BID 04/07/16 [History] Amitriptyline HCl 50 mg PO BID 01/29/19 [History] Ergocalciferol [Vitamin D2] 50,000 unit PO SA 01/29/19 [History] Lisinopril [Zestril] 2.5 mg PO DAILY 01/29/19 [History] Levothyroxine Sodium [Synthroid] 25 mcg PO DAILY 02/07/19 [History] Docusate [Colace] 100 mg PO BID #60 capsule 02/09/19 [Rx] HYDROcodone/APAP 7.5-325MG [[place] 7.5-325] 1 - 2 each PO Q6HR PRN #56 tab 02/09/19 [Rx] Follow up Appointment(s)/Referral(s): Dylan Mark MD [STAFF PHYSICIAN] - 10 Days Activity/Diet/Wound Care/Special Instructions: Patient is scheduled to attend outpatient physical therapy as arranged prior to surgery. Keep wound clean and dry Take meds as directed Follow-up with Dr. Mark in office Weight bear as tolerated May shower in 3 days if no bleeding Discharge Disposition: HOME WITH HOME HEALTH SERVICES
[2019-02-09] MEDS: MULTIVITAMINS, THERA 1 EACH TAB PO SCH (11:59)
[2019-02-09] MEDS: DILTIAZEM CD 180 MG CAP.ER.24H PO SCH (20:26)
[2019-02-09] MEDS: SENNOSIDES-DOCUSATE SODIUM 1 EACH TAB PO SCH (20:27)
[2019-02-09] MEDS: MONTELUKAST 10 MG TAB PO SCH (20:27)
[2019-02-10] MEDS: LEVOTHYROXINE 25 MCG TAB PO SCH (05:43)
[2019-02-10] MEDS: HYDROcodone/APAP 5-325MG 1 EACH TAB PO PRN ×3 (06:59→21:28)
[2019-02-10] MEDS: IPRATROPIUM-ALBUTEROL 3 ML NEB INHALATION PRN ×3 (07:20→20:19)
[2019-02-10] MEDS: LACTATED RINGERS 1,000 ML IV SCH ×3 (08:03→21:31)
[2019-02-10] MEDS: TIMOLOL 0.5% OPHTH DROPS 5 ML BTL BOTH EYES SCH ×2 (08:07→21:28)
[2019-02-10] MEDS: BRIMONIDINE TARTRATE 0.2% DROPS 5 ML BTL BOTH EYES SCH ×2 (08:07→21:27)
[2019-02-10] MEDS: PANTOPRAZOLE 40 MG TABLET PO SCH (08:15)
[2019-02-10] MEDS: CLOPIDOGREL 75 MG TAB PO SCH (08:15)
[2019-02-10] MEDS: LISINOPRIL 2.5 MG TAB PO SCH (08:16)
[2019-02-10] MEDS: AMITRIPTYLINE HCL 50 MG TAB PO SCH ×3 (08:16→22:39)
[2019-02-10] MEDS: ISOSORBIDE DINITRATE 10 MG TAB PO SCH (08:16)
[2019-02-10] MEDS ORDERED: ERGOCALCIFEROL 50,000 UNIT CAP PO SCH (09:00)
[2019-02-10 09:01] LABS: Basophils % (A) 1 %; Eosinophils # (A) 0.1 k/uL (0-0.7); Eosinophils % (A) 2 %; HCT 32.9 % (34.0-46.0); HGB 10.6 gm/dL (11.4-16.0); Lymphocytes # (A) 1.2 k/uL (1.0-4.8); Lymphocytes % (A) 22 %; MCV 90.5 fL (80.0-100.0); Mean Platelet Volume 8.4; Monocytes # (A) 0.3 k/uL (0-1.0); Monocytes % (A) 6 %; Neutrophils # (A) 3.7 k/uL (1.3-7.7); Neutrophils % (A) 68 %; Platelet Count 175 k/uL (150-450); RBC 3.64 m/uL (3.80-5.40); WBC 5.4 k/uL (3.8-10.6)
--- NOTE | 2019-02-10 09:35 | P.PN ---
Subjective Progress Note Date: 02/10/19 This is a 68-year-old female who is status post left total knee arthroplasty. This is postoperative day #3. Patient is seen and evaluated at bedside. Per nursing, the patient was walking with physical therapy and her O2 sats have been in the upper 70s and 80s since. Patient is currently on oxygen via nasal cannula. Patient does complain of a mild cough. Patient states that her is home sick with pneumonia which is why she could not leave the hospital yesterday. Patient states that otherwise her left knee is feeling very well and her pain is controlled. Patient denies any fever/chills, numbness, weakness, tingling, abdominal pain, shortness of breath or chest pain. Objective - Vital Signs Vital signs: Vital Signs Temp 98.2 F 02/10/19 07:00 Pulse 88 02/10/19 07:26 Resp 20 02/10/19 08:54 BP 96/56 02/10/19 07:00 Pulse Ox 96 02/10/19 08:54 Intake & Output 02/09/19 02/10/19 02/10/19 18:59 06:59 18:59 Other: Voiding Method Toilet # Voids 1 2 - Exam Vital signs are stable. Patient is in no acute distress and is alert and oriented 3. Calf is soft and nontender to palpation. Dressing is clean, dry, and intact. Patient has full foot and ankle motion without pain or difficulty. Neurovascular status and circulatory status are intact. - Labs CBC & Chem 7: 02/10/19 08:23 Labs: Abnormal Lab Results - Last 24 Hours (Table) 02/10/19 Range/Units 08:23 RBC 3.64 L (3.80-5.40) m/uL Hgb 10.6 L (11.4-16.0) gm/dL Hct 32.9 L (34.0-46.0) % Assessment and Plan Assessment: Asthma Coronary artery disease CVA/TIA Eye disorder GERD Hyperlipidemia Hypertension History of myocardial infarction Sleep apnea Glaucoma (1) Osteoarthritis of left knee Current Visit: Yes Status: Acute Priority: Medium Code(s): M17.12 - UNILATERAL PRIMARY OSTEOARTHRITIS, LEFT KNEE SNOMED Code(s): 582347409835709 (2) Status post total left knee replacement Current Visit: Yes Status: Acute Priority: Medium Code(s): Z96.652 - PRESENCE OF LEFT ARTIFICIAL KNEE JOINT SNOMED Code(s): 1438271510855 Plan: #1 Continue with routine postoperative care and pain control. Daily dressing changes. #2 Patient is on Plavix. #3 Physical therapy and CPM today. #4 Appreciate input from medicine. Patient is afebrile and her white blood cell count is normal. #5 Patient is clear for discharge home when cleared medically.
--- NOTE | 2019-02-10 10:30 | P.PN ---
Subjective Progress Note Date: 02/10/19 Principal diagnosis: Initial diagnosis for admission elective left total knee, however patient was ambulating with walker and multiple episodes of desaturations in the mid 80s. Patient has had low-grade fever in the 99.F, on auscultation respiratory efforts appear normal. Exchange within normal limits no wheezing no consolidation Patient states that her was seen in the office yesterday and diagnosed with pneumonia, will obtain chest x-ray PA and lateral, and nasal swab for influenza Objective - Vital Signs Vital signs: Vital Signs Temp 98.2 F 02/10/19 09:00 Pulse 98 02/10/19 09:00 Resp 20 02/10/19 09:00 BP 96/56 02/10/19 09:00 Pulse Ox 96 02/10/19 09:00 Intake & Output 02/09/19 02/10/19 02/10/19 18:59 06:59 18:59 Other: Voiding Method Toilet # Voids 1 2 # Bowel Movements 1 - Exam General: [Patient awake, alert and oriented times 3. Patient in no acute distress.] HEENT: [PERRL. EOMI. No pharyngeal erythema or exudate.] Neck: [No adenopathy.] Cardiac: [Heart regular in rate and rhythm. No S3. No S4. No clicks, rubs. No murmur.] Lungs: [Clear to auscultation bilaterally.] Abdomen: [No mass. No organomegaly. Bowel sounds presnt and normoactive in all 4 quadrants.] Extremes: Left knee has biocclusive dressing which is clean and dry : [] Musculoskeletal: [No joint erythema, edema or tenderness.] Skin: [No rash.] Neurologic: [No lateralizing deficits. CN II - XII grossly intact.] Lymphatic: [No adenopathy.] - Labs CBC & Chem 7: 02/10/19 08:23 Labs: Abnormal Lab Results - Last 24 Hours (Table) 02/10/19 Range/Units 08:23 RBC 3.64 L (3.80-5.40) m/uL Hgb 10.6 L (11.4-16.0) gm/dL Hct 32.9 L (34.0-46.0) % Assessment and Plan (1) Osteoarthritis of left knee Current Visit: Yes Status: Acute Priority: Medium Code(s): M17.12 - UNILATERAL PRIMARY OSTEOARTHRITIS, LEFT KNEE SNOMED Code(s): 890757733956359 (2) Status post total left knee replacement Current Visit: Yes Status: Acute Priority: Medium Code(s): Z96.652 - PRESENCE OF LEFT ARTIFICIAL KNEE JOINT SNOMED Code(s): 7921356844028 Plan: Past post-left total knee arthroplasty Episodic desaturations with ambulation On examination the patient's forming O2 sats were in the 90s On auscultation lungs sounds were clear patient is moving air well Plan at this time is to assess for possible influenza a nasal swab performed Chest x-ray also performed secondary to desaturations with ambulation Time with Patient: Greater than 30
--- NOTE | 2019-02-10 10:49 | XR ---
EXAMINATION TYPE: XR chest 2V DATE OF EXAM: 02/10/2019 HISTORY: decreased pulse ox. REFERENCE: Previous study dated 07/31/2013. FINDINGS: There is platelike atelectasis at the left lung base. Lungs otherwise clear. Pleural space are clear. The heart is not enlarged. IMPRESSION: PLATELIKE ATELECTASIS, LEFT LUNG BASE.
[2019-02-10] MEDS: MULTIVITAMINS, THERA 1 EACH TAB PO SCH (13:32)
[2019-02-10] MEDS: OSELTAMIVIR 60 MG/10 ML ORAL SYRINGE PO SCH ×2 (13:33→21:28)
[2019-02-10] MEDS: DEXTROSE 5%-0.45% NACL 1,000 ML IV SCH (13:34)
[2019-02-10] MEDS: DILTIAZEM CD 180 MG CAP.ER.24H PO SCH (21:27)
[2019-02-10] MEDS: SENNOSIDES-DOCUSATE SODIUM 1 EACH TAB PO SCH (21:28)
[2019-02-10] MEDS: MONTELUKAST 10 MG TAB PO SCH (21:28)
[2019-02-11] MEDS: DEXTROSE 5%-0.45% NACL 1,000 ML IV SCH ×2 (03:51→17:45)
[2019-02-11] MEDS: LACTATED RINGERS 1,000 ML IV SCH ×3 (05:24→22:02)
[2019-02-11] MEDS: LEVOTHYROXINE 25 MCG TAB PO SCH (06:12)
[2019-02-11] MEDS: AMITRIPTYLINE HCL 50 MG TAB PO SCH ×2 (08:43→21:59)
[2019-02-11] MEDS: LISINOPRIL 2.5 MG TAB PO SCH (08:44)
[2019-02-11] MEDS: PANTOPRAZOLE 40 MG TABLET PO SCH (08:44)
[2019-02-11] MEDS: CLOPIDOGREL 75 MG TAB PO SCH (08:44)
[2019-02-11] MEDS: TIMOLOL 0.5% OPHTH DROPS 5 ML BTL BOTH EYES SCH ×2 (08:47→22:00)
[2019-02-11] MEDS: OSELTAMIVIR 60 MG/10 ML ORAL SYRINGE PO SCH ×2 (08:48→22:00)
[2019-02-11] MEDS: BRIMONIDINE TARTRATE 0.2% DROPS 5 ML BTL BOTH EYES SCH ×2 (08:49→21:59)
--- NOTE | 2019-02-11 09:08 | P.PN ---
Subjective Progress Note Date: 02/11/19 This is a 68-year-old female who is status post left total knee arthroplasty. This is postoperative day #4. Patient is seen and evaluated at bedside. Patient tested positive for influenza A. Per nursing, the patient is still on 4 L of oxygen. Patient states that otherwise her left knee is feeling very well and her pain is controlled. Patient denies any fever/chills, numbness, weakness, tingling, abdominal pain, shortness of breath or chest pain. Objective - Vital Signs Vital signs: Vital Signs Temp 98.2 F 02/11/19 07:00 Pulse 80 02/11/19 07:00 Resp 14 02/11/19 07:00 BP 102/62 02/11/19 07:00 Pulse Ox 92 L 02/11/19 07:00 Intake & Output 02/10/19 02/11/19 02/11/19 18:59 06:59 18:59 Intake Total 950 Balance 950 Intake: Intake, IV Titration 750 Amount Dextrose 5%-0.45% NaCl 1, 750 000 ml @ 75 mls/hr IV . [id number] PENDING SALE TO [facility] Rx#:[id number] Oral 200 Other: Voiding Method Toilet # Voids 3 2 # Bowel Movements 2 - Exam Vital signs are stable. Patient is in no acute distress and is alert and oriented 3. Calf is soft and nontender to palpation. Dressing is clean, dry, and intact. Patient has full foot and ankle motion without pain or difficulty. Neurovascular status and circulatory status are intact. - Labs CBC & Chem 7: 02/10/19 08:23 Labs: Abnormal Lab Results - Last 24 Hours (Table) 02/10/19 02/10/19 Range/Units 08:23 11:01 RBC 3.64 L (3.80-5.40) m/uL Hgb 10.6 L (11.4-16.0) gm/dL Hct 32.9 L (34.0-46.0) % Influenza Type A RNA Detected H (Not Detectd) Assessment and Plan Assessment: Asthma Coronary artery disease CVA/TIA Eye disorder GERD Hyperlipidemia Hypertension History of myocardial infarction Sleep apnea Glaucoma (1) Osteoarthritis of left knee Current Visit: Yes Status: Acute Priority: Medium Code(s): M17.12 - UNILATERAL PRIMARY OSTEOARTHRITIS, LEFT KNEE SNOMED Code(s): 243726889411800 (2) Status post total left knee replacement Current Visit: Yes Status: Acute Priority: Medium Code(s): Z96.652 - P RESENCE OF LEFT ARTIFICIAL KNEE JOINT SNOMED Code(s): 8854911913191 (3) Influenza A Current Visit: Yes Status: Acute Code(s): J10.1 - FLU DUE TO OTH IDENT INFLUENZA VIRUS W OTH RESP MANIFEST SNOMED Code(s): 462838607 Plan: #1 Continue with routine postoperative care and pain control. Daily dressing changes. #2 Patient is on Plavix. #3 Physical therapy and CPM today. #4 Appreciate input from medicine. #5 Patient is clear for discharge home when cleared medically.
--- NOTE | 2019-02-11 09:11 | P.DS ---
Providers Date of admission: 02/07/19 14:08 Expected date of discharge: 02/11/19 Attending physician: Dylan Mark Consults: 02/08/19 18:35 Consult Physician Routine Consulting Provider: Dominik Black Jr Consult Reason/Comments: post op medical management Do you want consulting provider notified?: Yes Primary care physician: Richard Tinoco - Discharge Diagnosis(es) (1) Osteoarthritis of left knee Current Visit: Yes Status: Acute Priority: Medium (2) Status post total left knee replacement Current Visit: Yes Status: Acute Priority: Medium (3) Influenza A Current Visit: Yes Status: Acute Hospital Course: This is a 68-year-old female with known history of degenerative arthritis of the left knee. The patient presents for evaluation. After discussion and consideration patient elects to proceed with total knee arthroplasty. The patient is seen preoperatively by Dr. Mark and medically cleared for surgery by their primary care physician. Patient is admitted to [facility] on 02/07/2019 for total knee arthroplasty. The procedures performed without complication or sequelae. The patient is doing well postoperatively. Labs and vital signs are stable on day of discharge. Patient did test positive for influenza A during this admission. Patient required oxygen via nasal cannula. Patient was evaluated by internal medicine for this and a chest x-ray was negative for any acute process. On day of discharge patient's knee incision is healing well. There is minimal erythema. There is no drainage noted at this time. There is minimal soft tissue swelling to the knee. Patient has full foot and ankle motion without difficulty or pain. Calf is soft and nontender to palpation. Neurovascular status to the left lower extremity is intact. Patient is discharged home in good condition. Please see med rec for accurate list of home medications. Patient Condition at Discharge: Good Plan - Discharge Summary Discharge Rx Participant: Yes New Discharge Prescriptions: New Docusate [Colace] 100 mg PO BID #60 capsule HYDROcodone/APAP 7.5-325MG [[place] 7.5-325] 1 - 2 each PO Q6HR PRN #56 tab PRN Reason: Pain oxyCODONE ER [OxyCONTIN] 10 mg PO Q12HR 5 Days #10 tab No Action Isosorbide Dinitrate 30 mg PO DAILY Clopidogrel Bisulfate [Clopidogrel] 75 mg PO DAILY Meloxicam 7.5 mg PO DAILY Montelukast [Singulair] 10 mg PO HS Brimonidine Tartrate [[place]ph[place] P 0.15% Ophth Soln] 1 drops BOTH EYES BID Timolol 0.5% Ophth Soln [[place] 0.5% Ophth Soln] 1 drop BOTH EYES BID Diltiazem HCl [Diltiazem ER] 360 mg PO HS [facility] Ergocalciferol [Vitamin D2] 50,000 unit PO SA Amitriptyline HCl 50 mg PO BID Lisinopril [Zestril] 2.5 mg PO DAILY Levothyroxine Sodium [Synthroid] 25 mcg PO DAILY Discharge Medication List Clopidogrel Bisulfate [Clopidogrel] 75 mg PO DAILY 06/10/14 [History] Isosorbide Dinitrate 30 mg PO DAILY 06/10/14 [History] Meloxicam 7.5 mg PO DAILY 06/10/14 [History] Montelukast [Singulair] 10 mg PO HS 10/01/15 [History] Brimonidine Tartrate [[place]ph[place] P 0.15% Ophth Soln] 1 drops BOTH EYES BID 04/07/16 [History] Diltiazem HCl [Diltiazem ER] 360 mg PO HS 04/07/16 [History] Omeprazole 40 mg PO AC-KT 04/07/16 [History] Timolol 0.5% Ophth Soln [[place] 0.5% Ophth Soln] 1 drop BOTH EYES BID 04/07/16 [History] Amitriptyline HCl 50 mg PO BID 01/29/19 [History] Ergocalciferol [Vitamin D2] 50,000 unit PO SA 01/29/19 [History] Lisinopril [Zestril] 2.5 mg PO DAILY 01/29/19 [History] Levothyroxine Sodium [Synthroid] 25 mcg PO DAILY 02/07/19 [History] Docusate [Colace] 100 mg PO BID #60 capsule 02/09/19 [Rx] HYDROcodone/APAP 7.5-325MG [[place] 7.5-325] 1 - 2 each PO Q6HR PRN #56 tab 02/09/19 [Rx] oxyCODONE ER [OxyCONTIN] 10 mg PO Q12HR 5 Days #10 tab 02/09/19 [Rx] Follow up Appointment(s)/Referral(s): Dylan Mark MD [STAFF PHYSICIAN] - 02/16/19 1:15 pm Activity/Diet/Wound Care/Special Instructions: Patient is scheduled to attend outpatient physical therapy as arranged prior to surgery. Keep wound clean and dry Take meds as directed Follow-up with Dr. Mark in office Weight bear as tolerated May shower in 3 days if no bleeding Discharge Disposition: HOME WITH HOME HEALTH SERVICES
[2019-02-11] MEDS: ISOSORBIDE DINITRATE 10 MG TAB PO SCH (10:05)
[2019-02-11] MEDS: HYDROcodone/APAP 5-325MG 1 EACH TAB PO PRN ×2 (10:05→17:14)
[2019-02-11] MEDS: MULTIVITAMINS, THERA 1 EACH TAB PO SCH (11:55)
--- NOTE | 2019-02-11 13:55 | P.PN ---
Subjective Progress Note Date: 02/11/19 Principal diagnosis: Initial diagnosis for admission elective left total knee, however patient was ambulating with walker and multiple episodes of desaturations in the mid 80s. 02/11/2019 Patient awake alert active oriented 3 still requiring oxygen to maintain sats above 92%, patient desaturates into the high 80s when resting. Diagnosed with influenza A 24hr was ago following left total knee arthroplasty Patient still descending will keep in hospital continue Tamiflu 75 mg 1 by mouth twice a day tolerating diet will maintain sats above 90-94 with nasal cannula Patient has had low-grade fever in the 99.F, on auscultation respiratory efforts appear normal. Exchange within normal limits no wheezing no consolidation Patient states that her was seen in the office yesterday and diagnosed with pneumonia, will obtain chest x-ray PA and lateral, and nasal swab for influenza Objective - Vital Signs Vital signs: Vital Signs Temp 98.2 F 02/11/19 07:00 Pulse 80 02/11/19 07:00 Resp 14 02/11/19 10:13 BP 111/71 02/11/19 10:02 Pulse Ox 95 02/11/19 10:13 Intake & Output 02/10/19 02/11/19 02/11/19 18:59 06:59 18:59 Intake Total 950 896 Balance 950 896 Intake: Intake, IV Titration 750 Amount Dextrose 5%-0.45% NaCl 1, 750 000 ml @ 75 mls/hr IV . [id number] [facility] Rx#:[id number] Oral 200 896 Other: Voiding Method Toilet # Voids 3 2 # Bowel Movements 2 - Exam General: [Patient awake, alert and oriented times 3. Patient in no acute distress.] HEENT: [PERRL. EOMI. No pharyngeal erythema or exudate.] Neck: [No adenopathy.] Cardiac: [Heart regular in rate and rhythm. No S3. No S4. No clicks, rubs. No murmur.] Lungs: [Clear to auscultation bilaterally.] Abdomen: [No mass. No organomegaly. Bowel sounds presnt and normoactive in all 4 quadrants.] Extremes: Left knee has biocclusive dressing which is clean and dry : [] Musculoskeletal: [No joint erythema, edema or tenderness.] Skin: [No rash.] Neurologic: [No lateralizing deficits. CN II - XII grossly intact.] Lymphatic: [No adenopathy.] - Labs CBC & Chem 7: 02/10/19 08:23 Assessment and Plan (1) Osteoarthritis of left knee Current Visit: Yes Status: Acute Priority: Medium Code(s): M17.12 - UNILATERAL PRIMARY OSTEOARTHRITIS, LEFT KNEE SNOMED Code(s): 334336876579692 (2) Status post total left knee replacement Current Visit: Yes Status: Acute Priority: Medium Code(s): Z96.652 - PRESENCE OF LEFT ARTIFICIAL KNEE JOINT SNOMED Code(s): 4608926316901 Plan: post-left total knee arthroplasty Episodic desaturations with ambulation On examination the patient's forming O2 sats were in the 90s On auscultation lungs sounds were clear patient is moving air well Pt positive influenza A, with known history of chronic asthma Time with Patient: Greater than 30
[2019-02-11 15:40] VITALS: RESP 16
[2019-02-11] MEDS: DILTIAZEM CD 180 MG CAP.ER.24H PO SCH (22:00)
[2019-02-11] MEDS: MONTELUKAST 10 MG TAB PO SCH (22:00)
[2019-02-11] MEDS: SENNOSIDES-DOCUSATE SODIUM 1 EACH TAB PO SCH (22:00)
[2019-02-12] MEDS: HYDROcodone/APAP 5-325MG 1 EACH TAB PO PRN ×2 (04:56→11:10)
[2019-02-12] MEDS: LEVOTHYROXINE 25 MCG TAB PO SCH (04:56)
[2019-02-12] MEDS: DEXTROSE 5%-0.45% NACL 1,000 ML IV SCH (04:57)
[2019-02-12] MEDS: LACTATED RINGERS 1,000 ML IV SCH (05:18)
[2019-02-12 07:51] VITALS: BP 121/56; PULSE 80; TEMP 97.9
[2019-02-12] MEDS: PANTOPRAZOLE 40 MG TABLET PO SCH (09:05)
[2019-02-12] MEDS: LISINOPRIL 2.5 MG TAB PO SCH (09:05)
[2019-02-12] MEDS: AMITRIPTYLINE HCL 50 MG TAB PO SCH (09:05)
[2019-02-12] MEDS: CLOPIDOGREL 75 MG TAB PO SCH (09:05)
[2019-02-12] MEDS: ISOSORBIDE DINITRATE 10 MG TAB PO SCH (09:05)
[2019-02-12] MEDS: OSELTAMIVIR 60 MG/10 ML ORAL SYRINGE PO SCH (09:05)
[2019-02-12] MEDS: BRIMONIDINE TARTRATE 0.2% DROPS 5 ML BTL BOTH EYES SCH (09:06)
[2019-02-12] MEDS: TIMOLOL 0.5% OPHTH DROPS 5 ML BTL BOTH EYES SCH (09:06)
[2019-02-12] MEDS: MULTIVITAMINS, THERA 1 EACH TAB PO SCH (11:11)
[2019-02-12 11:31] LABS: Anion Gap 5 mmol/L; Blood Urea Nitrogen 8 mg/dL (7-17); Calcium 8.2 mg/dL (8.4-10.2); Carbon Dioxide 28 mmol/L (22-30); Chloride 104 mmol/L (98-107); Glucose 103 mg/dL (74-99); Potassium 4.1 mmol/L (3.5-5.1); Sodium 137 mmol/L (137-145)
--- NOTE | 2019-02-12 12:42 | P.PN ---
Subjective Patient being feels much better after being diagnosed with influenza a. She was originally here for left total knee arthroplasty. She indicates is doing well. She like to go home. She denies any chest pains pressures or shortness of breath. Objective - Vital Signs Vital signs: Vital Signs Temp 97.9 F 02/12/19 07:10 Pulse 80 02/12/19 07:10 Resp 16 02/11/19 23:39 BP 121/56 02/12/19 07:10 Pulse Ox 93 L 02/12/19 07:10 Intake & Output 02/11/19 02/12/19 02/12/19 18:59 06:59 18:59 Intake Total 1496 750 Balance 1496 750 Intake: IV 600 Dextrose 5%-0.45% NaCl 1, 600 000 ml @ 75 mls/hr IV . [id number] [facility] Rx#:[id number] Intake, IV Titration 750 Amount Dextrose 5%-0.45% NaCl 1, 750 000 ml @ 75 mls/hr IV . [id number] [facility] Rx#:[id number] Oral 896 Other: Voiding Method Toilet # Voids 3 2 - Exam General: The patient is awake and alert, in no distress, and does not appear acutely ill. Neck: The neck is supple, there is no thyromegaly, lymphadenopathy, tenderness or JVD. Cardiovascular: S1S2 is normal, There is a regular rate and rhythm. No murmur, rub or gallop is appreciated. Respiratory: Lungs are clear to auscultation bilaterally, respirations are non-labored, breath sounds are equal. Extremities: no tenderness, There is no pedal edema. Neurological: CN II-XII intact, there are no obvious motor or sensory deficits. Coordination appears grossly intact. Speech is normal. - Labs CBC & Chem 7: 02/10/19 08:23 02/12/19 10:37 Labs: Abnormal Lab Results - Last 24 Hours (Table) 02/12/19 Range/Units 10:37 Glucose 103 H (74-99) mg/dL Calcium 8.2 L (8.4-10.2) mg/dL Assessment and Plan (1) Influenza A Current Visit: Yes Status: Acute Code(s): J10.1 - FLU DUE TO OTH IDENT INFLUENZA VIRUS W OTH RESP MANIFEST SNOMED Code(s): 812058554 (2) Osteoarthritis of left knee Current Visit: Yes Status: Acute Priority: Medium Code(s): M17.12 - UNILATERAL PRIMARY OSTEOARTHRITIS, LEFT KNEE SNOMED Code(s): 852851481180904 (3) Status post total left knee replacement Current Visit: Yes Status: Acute Priority: Medium Code(s): Z96.652 - PRESENCE OF LEFT ARTIFICIAL KNEE JOINT SNOMED Code(s): 5941396062453 Plan: He is medically cleared for discharge. She continues symptomatic supportive care with [id number] guaifenesin and other medications. She'll follow-up in the office the next several days. s
== END 2019-02-12 14:26 | disposition home or self-care (01) | DRG 470 ==
LOC: 2ORMAIN 14:08 → 4SSUR 18:32
PROVIDERS: ADMIT Orthopaedic Surgery Sports Medicine; ATTEND Orthopaedic Surgery Sports Medicine
PROC: 5A09457 Assistance with Respiratory Ventilation, 24-96 Consecutive Hours, Continuous Positive Airway Pressure (ICD-10-PCS; 2019-02-07)
PROC: 0SRD0J9 Replacement of Left Knee Joint with Synthetic Substitute, Cemented, Open Approach (ICD-10-PCS; principal; 2019-02-07 16:00)
DX: M17.12 Unilateral primary osteoarthritis, left knee (principal); E03.9 Hypothyroidism, unspecified; J10.1 Influenza due to other identified influenza virus with other respiratory manifestations; E78.5 Hyperlipidemia, unspecified; E78.00 Pure hypercholesterolemia, unspecified; G47.33 Obstructive sleep apnea (adult) (pediatric); I10 Essential (primary) hypertension; J45.909 Unspecified asthma, uncomplicated; I25.111 Atherosclerotic heart disease of native coronary artery with angina pectoris with documented spasm; K21.9 Gastro-esophageal reflux disease without esophagitis; H40.9 Unspecified glaucoma; M51.36 Other intervertebral disc degeneration, lumbar region; I25.2 Old myocardial infarction; Z79.02 Long term (current) use of antithrombotics/antiplatelets; Z79.1 Long term (current) use of non-steroidal anti-inflammatories (NSAID); Z79.890 Hormone replacement therapy; Z79.899 Other long term (current) drug therapy; Z99.89 Dependence on other enabling machines and devices; Z86.73 Personal history of transient ischemic attack (TIA), and cerebral infarction without residual deficits; Z90.710 Acquired absence of both cervix and uterus; Z90.49 Acquired absence of other specified parts of digestive tract; Z87.442 Personal history of urinary calculi; Z98.1 Arthrodesis status; Z88.1 Allergy status to other antibiotic agents; Z88.5 Allergy status to narcotic agent; Z82.49 Family history of ischemic heart disease and other diseases of the circulatory system; Z80.8 Family history of malignant neoplasm of other organs or systems; Z80.0 Family history of malignant neoplasm of digestive organs
CPT/HCPCS: 71046; 80048; 85025; 87502; 88300; 94640; 94760

== ENCOUNTER → 2019-02-26 | Outpatient (CLI) | payer MEDICARE, OTHER ==
[2019-02-26 16:01] LABS: Anion Gap 9.8 mmol/L (4.00-12.00); Calcium 9.5 mg/dL (8.7-10.3); Carbon Dioxide 23.2 mmol/L (21.6-31.8); Potassium 4.8 mmol/L (3.5-5.5)
== END ==
LOC: LABWHC1 09:51
PROVIDERS: ATTEND Family Medicine
DX: E87.5 Hyperkalemia (principal)
CPT/HCPCS: 36415; 80048

== ENCOUNTER → 2019-04-18 | Outpatient (CLI) | payer MEDICARE, OTHER ==
[2019-04-18 07:18] LABS: Basophils # (A) 0.1 k/uL (0-0.2); Basophils % (A) 1 %; Eosinophils # (A) 0.5 k/uL (0-0.7); Eosinophils % (A) 6 %; HCT 41.3 % (34.0-46.0); HGB 12.6 gm/dL (11.4-16.0); Hypochromasia Slight; Lymphocytes % (A) 27 %; MCH 26.9 pg (25.0-35.0); MCHC 30.5 g/dL (31.0-37.0); MCV 88.2 fL (80.0-100.0); Mean Platelet Volume 7.5; Monocytes # (A) 0.3 k/uL (0-1.0); Monocytes % (A) 5 %; Neutrophils # (A) 4.4 k/uL (1.3-7.7); Neutrophils % (A) 60 %; Platelet Count 274 k/uL (150-450); RBC 4.69 m/uL (3.80-5.40); RDW 13.5 % (11.5-15.5); WBC 7.4 k/uL (3.8-10.6)
[2019-04-18 11:51] LABS: Albumin 4.3 g/dL (3.80-4.90); Albumin/Globulin Ratio 1.65 (1.60-3.17); Anion Gap 8.2 mmol/L (4.00-12.00); Calcium 9.1 mg/dL (8.7-10.3); Carbon Dioxide 25.8 mmol/L (21.6-31.8); Globulin 2.6 g/dL (1.6-3.3); LDL Cholesterol,Calculated 58.2 mg/dL (0.0-131.0); Potassium 4.5 mmol/L (3.5-5.5); T4, Free (Free Thyroxine) 0.9 ng/dL (0.80-1.80); Total Bilirubin 0.3 mg/dL (0.2-1.2); Total Protein 6.9 g/dL (6.2-8.2); VLDL Calculation 21.8 mg/dL (5.00-40.00)
== END ==
LOC: LABWHC1 06:35
PROVIDERS: ATTEND Family Medicine
DX: Z00.00 Encounter for general adult medical examination without abnormal findings (principal); I10 Essential (primary) hypertension; E78.00 Pure hypercholesterolemia, unspecified; E55.9 Vitamin D deficiency, unspecified; E87.5 Hyperkalemia
CPT/HCPCS: 36415; 80053; 80061; 84439; 84443; 85025; 86803

== ENCOUNTER → 2019-05-28 | Outpatient (CLI) | payer MEDICARE, OTHER ==
[2019-05-28 17:09] LABS: ALT 45 U/L (8-44); AST 42 U/L (13-35); Albumin/Globulin Ratio 1.88 (1.60-3.17); Alkaline Phosphatase 154 U/L (41-126); Bilirubin, Conjugated <0.20 mg/dL (0.20-0.40); Globulin 2.4 g/dL (1.6-3.3); Total Bilirubin 0.3 mg/dL (0.3-1.2); Total Protein 6.9 g/dL (6.2-8.2)
== END | disposition home or self-care (01) ==
LOC: LABWHC1 07:52
PROVIDERS: ATTEND Family Medicine
DX: E03.9 Hypothyroidism, unspecified (principal); R94.5 Abnormal results of liver function studies; E78.00 Pure hypercholesterolemia, unspecified
CPT/HCPCS: 36415; 80076; 84439; 84443; 84481

== ENCOUNTER → 2019-07-19 | Outpatient (CLI) | payer MEDICARE, OTHER ==
[2019-07-19 12:16] LABS: T4, Free (Free Thyroxine) 0.9 ng/dL (0.80-1.80)
== END | disposition home or self-care (01) ==
LOC: LAB 07:03
PROVIDERS: ATTEND Family Medicine
DX: I10 Essential (primary) hypertension (principal); E03.9 Hypothyroidism, unspecified; Z79.899 Other long term (current) drug therapy
CPT/HCPCS: 36415; 84439; 84443; 84481

== ENCOUNTER → 2019-09-04 | Outpatient (CLI) | payer MEDICARE, OTHER ==
--- NOTE | 2019-09-04 15:27 | PN ---
PROGRESS NOTE Nidia is a 69-year-old female patient who is coming in for an annual check regarding obstructive sleep apnea. The patient is on a CPAP pressure of 10 and weight has been stable over the past 1 year. She has been extremely compliant and she has been utilizing her CPAP machine every night. Her CPAP use for more than 4 hours is 100%. She is averaging around 8.7 hours of CPAP use per night with a leak of 32 L/minute and her AHI is down to 0.9 and she is using a Dream Wear under the nose small size nose mask. Since her last evaluation. She was diagnosed having hypothyroidism and she is currently on thyroid hormone supplement replacement at a dose of 50 mcg on a daily basis. No chest pain. No shortness of breath. No cough or sputum production. Her asthma is under good control for now. No other issues related to her sleep, no major hypersomnia or sleepiness during the day. She is awake and alert. [place] [address], pulse 91, respirations 20, temperature 98, saturation 94% on room air. Height is 4, 10, weight is 170, [place] score is 5 and BMI 34.9. GENERAL APPEARANCE: Calm, comfortable obese. HEAD: Atraumatic, normocephalic. NECK: Supple. There is no JVD. No goiter or neck masses. LUNGS: Diminished otherwise clear. HEART: Sounds are regular rate and rhythm. Normal S1/S2. No murmurs. ABDOMEN: Soft, nontender. No organomegaly. EXTREMITIES: No edema. No cyanosis or clubbing. NEUROLOGIC: Alert and oriented x3. There are no focal neurological deficits. Psychiatric a set at psychiatric negative for anxiety or depression. REVIEW OF SYSTEMS: Fourteen-point review of system was done. Essentially negative other than as mentioned above. Her weight is stable. No angina, no palpitations. No chest pain. MEDICATIONS INCLUDE: Levothyroxine 50 mcg p.o. daily. Multivitamin 1 tablet a day. Vitamin D 43056 units 1 tablet a week, Plavix 75 q. day, diltiazem 360 q. day, Singulair 10 mg p.o. q. day, Imdur 30 mg p.o. q. day, timolol eye drops, Lisinopril 2.5 mg p.o. daily omeprazole 40 mg p.o. daily. IMPRESSION: 1. Obstructive sleep apnea. Currently successfully treated on CPAP pressure of 10 cm of water. #2 hypersomnia recovered and the patient [place] score is down to 5. #3 obesity stable weights BMI is at 34.9. 2. Hypothyroidism. 3. His coronary artery disease. 4. Hyperlipidemia. 5. History of transient ischemic attack. 6. History of IgA deficiency. 7. Osteoarthritis in the patient who has undergone a recent total knee replacement. PLAN: 1. Encourage weight loss. 2. Continue CPAP therapy at same level of pressure which is 7 cm of water. CPAP supplies will be renewed and the patient is doing well. No issues from my standpoint, see me back in a year's time, earlier if needed. Treatment remains successful. MMODL / IJN: [id number] /
== END ==
LOC: SLEEP 13:35
PROVIDERS: ATTEND Internal Medicine Critical Care Medicine
DX: G47.33 Obstructive sleep apnea (adult) (pediatric) (principal); E03.9 Hypothyroidism, unspecified; E66.9 Obesity, unspecified; I25.10 Atherosclerotic heart disease of native coronary artery without angina pectoris; E78.5 Hyperlipidemia, unspecified; Z86.73 Personal history of transient ischemic attack (TIA), and cerebral infarction without residual deficits; Z86.2 Personal history of diseases of the blood and blood-forming organs and certain disorders involving the immune mechanism; M19.90 Unspecified osteoarthritis, unspecified site; Z96.659 Presence of unspecified artificial knee joint; Z99.89 Dependence on other enabling machines and devices; Z68.34 Body mass index [BMI] 34.0-34.9, adult

== ENCOUNTER → 2019-09-11 | Outpatient (CLI) | payer MEDICARE, OTHER ==
[2019-09-11 08:10] LABS: Basophils # (A) 0.1 k/uL (0-0.2); Basophils % (A) 1 %; Eosinophils # (A) 0.3 k/uL (0-0.7); Eosinophils % (A) 3 %; HCT 42.1 % (34.0-46.0); HGB 13.1 gm/dL (11.4-16.0); Lymphocytes # (A) 2.7 k/uL (1.0-4.8); Lymphocytes % (A) 28 %; MCH 27.9 pg (25.0-35.0); MCHC 31.2 g/dL (31.0-37.0); MCV 89.5 fL (80.0-100.0); Mean Platelet Volume 7.3; Monocytes # (A) 0.4 k/uL (0-1.0); Monocytes % (A) 5 %; Neutrophils # (A) 5.8 k/uL (1.3-7.7); Neutrophils % (A) 61 %; Platelet Count 274 k/uL (150-450); RBC 4.71 m/uL (3.80-5.40); RDW 14.3 % (11.5-15.5); WBC 9.6 k/uL (3.8-10.6)
[2019-09-11 12:11] LABS: T4, Free (Free Thyroxine) 0.9 ng/dL (0.80-1.80)
[2019-09-11 12:24] LABS: African American GFR (CKD) 87.8 (60.0-200.0); Albumin 4.5 g/dL (3.80-4.90); Albumin/Globulin Ratio 1.96 (1.60-3.17); Anion Gap 10.4 mmol/L (4.00-12.00); BUN/Creat Ratio 21.25 Ratio (12.00-20.00); Calcium 9.4 mg/dL (8.7-10.3); Carbon Dioxide 26.6 mmol/L (21.6-31.8); Globulin 2.3 g/dL (1.6-3.3); Potassium 4.2 mmol/L (3.5-5.5); Total Bilirubin 0.4 mg/dL (0.2-1.2); Total Protein 6.8 g/dL (6.2-8.2)
== END | disposition home or self-care (01) ==
LOC: LABWHC1 07:18
PROVIDERS: ATTEND Family Medicine
DX: E03.9 Hypothyroidism, unspecified (principal); R94.5 Abnormal results of liver function studies; R53.83 Other fatigue
CPT/HCPCS: 36415; 80053; 84439; 84443; 84481; 85025

== ENCOUNTER → 2019-11-16 | Outpatient (CLI) | payer MEDICARE, OTHER ==
--- NOTE | 2019-11-16 14:10 | MM ---
Reason for exam: screening (asymptomatic). Last mammogram was performed 1 year and 1 month ago. History: Patient is postmenopausal and has history of high-risk lesion on a previous biopsy at age 53. High risk stereotactic core biopsy of the left breast, April 25, 2003. Benign excisional biopsy of the left breast, 2002. Benign stereotactic core biopsy of the left breast, May 06, 2000. Took hormonal contraceptives for 4 years beginning at age 22. Took estrogen for 12 years beginning at age 36. Took progesterone for 12 years beginning at age 36. Physical Findings: A clinical breast exam by your physician is recommended on an annual basis and results should be correlated with mammographic findings. MG 3D Screening Mammo W/Cad Bilateral CC and MLO view(s) were taken. Prior study comparison: October 24, 2018, bilateral MG 3d screening mammo w/cad. August 23, 2017, bilateral MG 3d screening mammo w/cad. There are scattered fibroglandular densities. Previous mammotome biopsy in the left breast. No significant changes when compared with prior studies. ASSESSMENT: Benign, BI-RAD 2 RECOMMENDATION: Routine screening mammogram of both breasts in 1 year.
== END | disposition home or self-care (01) ==
LOC: RADMAMWWP 06:53
PROVIDERS: ATTEND Surgery
DX: Z12.31 Encounter for screening mammogram for malignant neoplasm of breast (principal)
CPT/HCPCS: 77063; 77067

== ENCOUNTER → 2019-12-19 | Outpatient (CLI) | payer MEDICARE, OTHER ==
[2019-12-19 14:34] VITALS: BP 115/70; PULSE 93; RESP 18; TEMP 98
--- NOTE | 2019-12-19 15:18 | P.PN ---
Subjective Progress Note Date: 12/19/19 The patient is a 68-year-old white female who comes for breast examination. At this time she has no complaints related to her breast. She has no masses in her breasts. No nipple discharge or skin changes. She has no recent history of any trauma or infection of the breast. Her last bilateral mammogram was 11-16-19, this was benign BIRAD 2. Caffeine: 2 cups of coffee per day Nicotine: Negative Chocolate: Negative Hormones: Negative Family History: mother: thyroid cancer father: stomach cancer Hormonal History: menarche: 17 : 2, 2 children, breast fed: one, first at 27 menopause: hysterectomy at 41, cyst on ovaries, took both ovaries as well BCP: 8 years hormones: 10 years, estrogen Past Surgical History: 1. hysterectomy and bilateral oophrectomy 2. spinal fusion 3. appy 4. gallbladder 5. ankle fusion 6. breast biopsy 7. bladder surgery 8. heart cath 9. left total knee replacement Past Medical History: 1. hypothyroid 2. HTN 3. HINI flu in hospital Social History smoke: none alcohol; none drugs: none - Constitutional Constitutional: Denies chills, Denies fever - EENT Comment: wears glasses, vitreous fluid in the right eye with floaters Eyes: right decreased vision, denies pain Ears: deny: decreased hearing, tinnitus Ears, nose, mouth and throat: Denies headache, Denies sore throat - Breasts Breasts: bilateral: as per HPI - Cardiovascular Cardiovascular: Denies chest pain, Denies shortness of breath - Respiratory Respiratory: Denies cough, - Gastrointestinal Gastrointestinal: Denies abdominal pain, Denies diarrhea, Denies nausea, Denies vomiting - Genitourinary (Female) Genitourinary: Reports kidney stones - Menstruation Menstruation: Reports post hysterectomy - Musculoskeletal Comment: arthritis - Integumentary Integumentary: Denies pruritus, Denies rash - Neurological Comment: ? TIA in the past Neurological: Denies numbness, Denies weakness - Psychiatric Psychiatric: Denies anxiety, Denies depression - Endocrine Comment: hypothyroid Endocrine: Denies fatigue, Denies weight change - Hematologic/Lymphatic Comment: plavix - Allergic/Immunologic Comment: IGA deficiency more suspectiable to Upper resp infections Past Medical History Past Medical History: Asthma, Coronary Artery Disease (CAD), CVA/TIA, Eye Disorder, GERD/Reflux, Hyperlipidemia, Hypertension, Myocardial Infarction ([place]), Musculoskeletal Disorder, Sleep Apnea/CPAP/BIPAP Additional Past Medical History / Comment(s): GLAUCOMA JOSE ALFREDO. EYES- GLASSES DAILY USE, IGA RESPONSE TRIGGERS ASTHMA, TRIGGER FINGER, LUMBAR DDD, TIA 2012- NO RESIDUAL, USES C-PAP Last Myocardial Infarction Date:: 09/2005 History of Any Multi-Drug Resistant Organisms: None Reported Past Surgical History: Appendectomy, Back Surgery, Bladder Surgery, Breast Surgery, Cholecystectomy, Heart Catheterization, Hysterectomy, Orthopedic Surgery Additional Past Surgical History / Comment(s): LT KNEE ARTHROSCOPY. LT CTR. HX KIDNEY STONE REMOVAL 10/2012, JOSE ALFREDO LASER EYE SURG. PAIN CLINIC PROCEDURES, BREAST BX LT BREAST, Past Anesthesia/Blood Transfusion Reactions: No Reported Reaction Past Psychological History: No Psychological Hx Reported Smoking Status: Never smoker Past Alcohol Use History: None Reported Past Drug Use History: None Reported - Past Family History Mother Family Medical History: Cancer, Hypertension Additional Family Medical History / Comment(s): FROM THYROID CA, Father Family Medical History: Cancer Additional Family Medical History / Comment(s): FROM STOMACH CA, HX ALCOHOLISM Objective - Vital Signs Vital signs: Vital Signs Temp 98.0 F 12/19/19 14:31 Pulse 93 12/19/19 14:31 Resp 18 12/19/19 14:31 BP 115/70 12/19/19 14:31 Pulse Ox 93 L 12/19/19 14:31 Intake & Output 12/18/19 12/19/19 12/19/19 18:59 06:59 18:59 Weight 72.575 kg - Exam BMI 32.2 - Constitutional General appearance: Present: average body habitus - EENT Eyes: Present: EOMI ENT: Present: hearing grossly normal - Neck Details: no adenopathy of concern Neck: Present: normal ROM - Respiratory Respiratory: bilateral: CTA - Cardiovascular Rhythm: regular Heart sounds: normal: S1, S2 - Gastrointestinal General gastrointestinal: Present: normal bowel sounds, soft - Integumentary Integumentary: Present: normal turgor - Musculoskeletal Musculoskeletal: Present: gait normal - Psychiatric Psychiatric: Present: A&O x's 3, appropriate affect, intact judgment & insight - Additional findings Additional findings: breast exam: bra 38C grade 2/3 inspection: No skin changes of concern, no nipple inversion Palpation: Right breast: Multiple positional exam no dominant masses or nodules of concern Right axilla: No adenopathy of concern Left breast: Multi-positional exam no dominant masses or nodules of concern, fibrocystic changes Left axilla: No adenopathy of concern Assessment and Plan Assessment: Impression: 1. fibro cystic breast changes 2. hypothyroid 3. HTN Plan: 1. decrease caffeine intake 2. follow up in one year with bilateral mammogram 3. come sooner if any changes of concern noted CC: DR. Richard Tinoco encounter 20 monutes, > 50% spent in planning and counselling Time with Patient: Less than 30
== END ==
LOC: WWCWWP 14:04
PROVIDERS: ATTEND Surgery
DX: Z53.9 Procedure and treatment not carried out, unspecified reason (principal)

== ENCOUNTER → 2019-12-24 | Outpatient (CLI) | payer MEDICARE, OTHER ==
[2019-12-24 15:39] LABS: T4, Free (Free Thyroxine) 1.1 ng/dL (0.80-1.80)
== END | disposition home or self-care (01) ==
LOC: LABWHC1 07:21
PROVIDERS: ATTEND Family Medicine
DX: E03.9 Hypothyroidism, unspecified (principal)
CPT/HCPCS: 36415; 84439; 84443; 84481

== ENCOUNTER → 2020-04-22 | Outpatient (CLI) | payer MEDICARE, OTHER ==
[2020-04-22 13:25] LABS: Basophils # (A) 0.1 k/uL (0-0.2); Basophils % (A) 1 %; Eosinophils # (A) 0.2 k/uL (0-0.7); Eosinophils % (A) 3 %; HCT 43.8 % (34.0-46.0); HGB 13.7 gm/dL (11.4-16.0); Lymphocytes % (A) 37 %; MCH 27.6 pg (25.0-35.0); MCHC 31.2 g/dL (31.0-37.0); MCV 88.5 fL (80.0-100.0); Mean Platelet Volume 8.3; Monocytes # (A) 0.4 k/uL (0-1.0); Monocytes % (A) 5 %; Neutrophils # (A) 4.2 k/uL (1.3-7.7); Neutrophils % (A) 52 %; Platelet Count 274 k/uL (150-450); RBC 4.95 m/uL (3.80-5.40); RDW 13.8 % (11.5-15.5); WBC 8.1 k/uL (3.8-10.6)
[2020-04-22 13:34] LABS: Partial Thromboplastin Time 22.4 sec (22.0-30.0); Prothrombin Time 10.6 sec (9.0-12.0)
[2020-04-22 13:40] LABS: Albumin 4.7 g/dL (3.5-5.0); Calcium 9.8 mg/dL (8.4-10.2); Potassium 4.5 mmol/L (3.5-5.1); Total Bilirubin 0.7 mg/dL (0.2-1.3)
[2020-04-22 14:42] LABS: Appearance,Urine Clear (Clear); Bacteria,Urine Rare /hpf; Bilirubin,Urine Negative (Negative); Blood,Urine Negative (Negative); Color,Urine Light Yellow; Glucose,Urine (UA) Negative (Negative); Ketones,Urine Negative (Negative); Leukocyte Esterase,Urine Small (Negative); Mucus,Urine Rare /hpf; Nitrite,Urine Negative (Negative); Protein,Urine Negative (Negative); RBC,Urine <1 /hpf (0-5); Specific Gravity,Urine 1.004 (1.001-1.035); Squamous Epithelial Cell,Urine 1 /hpf (0-4); Urobilinogen,Urine <2.0 mg/dL (<2.0); WBC,Urine 2 /hpf (0-5)
== END | disposition home or self-care (01) ==
LOC: LABWHC1 12:20
PROVIDERS: ATTEND Orthopaedic Surgery Sports Medicine
DX: Z01.818 Encounter for other preprocedural examination (principal); Z01.812 Encounter for preprocedural laboratory examination; Z11.59 Encounter for screening for other viral diseases
CPT/HCPCS: 80053; 81001; 85025; 85610; 85730; 87070; 87635

== ENCOUNTER 2020-04-25 07:50 | Day surgery (SDC) | payer MEDICARE, OTHER ==
[2020-04-23 16:03] VITALS: BMI 33.3
[~2020-04-25 07:50] MED LIST changes: -ACETAMINOPHEN TAB 325 MG TAB PO PRN; -BISACODYL 10 MG SUPP RECTAL PRN; +GABAPENTIN 300 MG CAP PO ONE; -HYDROcodone/APAP 10-325MG 1 EACH TAB PO PRN; -HYDROcodone/APAP 5-325MG 1 EACH TAB PO PRN; -HYDROcodone/APAP 7.5-325MG 1 EACH TAB PO PRN; -HYDROmorphone 0.5 MG/0.5 ML SYRINGE IVP PRN; +LACTATED RINGERS 1,000 ML IV SCH; -LIDOCAINE 1% 20 ML VIAL (10MG/ML) FOR IV START INTRADERMA PRN; -MAGNESIUM HYDROXIDE 2,400 MG/10 ML CUP PO PRN; -MIDAZOLAM (PF) 2 MG/2 ML VIAL IV PRN; +MIDAZOLAM 2 MG/2 ML VIAL IV PRN; -NA PHOS,M-B/NA PHOS,DI-BA 133 ML ENEMA RECTAL PRN; -NALOXONE 0.4 MG/ML 1 ML VIAL IV PRN; -ONDANSETRON 4 MG/2 ML VIAL IVP PRN; +ROPIVACAINE 246.25 MG, EPINEPHrine 0.5 MG, KETOROLAC 30 MG, cloNIDine HCL/PF 80 MCG, WA... MISCELLANE ONE; -SCOPOLAMINE 1.5MG/72HR PATCH TRANSDERM ONE; -ceFAZolin IN SWFI 2 GM/20 ML SYRINGE IVP ONE; +fentaNYL (PF) 50 MCG/ML 2 ML AMP IV PRN; -traMADol 50 MG TAB PO PRN
[2020-04-25] MEDS ORDERED: NA PHOS,M-B/NA PHOS,DI-BA 133 ML ENEMA RECTAL PRN (10:01)
[2020-04-25] MEDS ORDERED: MAGNESIUM HYDROXIDE 2,400 MG/10 ML CUP PO PRN (10:01)
[2020-04-25] MEDS ORDERED: DIAZEPAM 5 MG TAB PO PRN (10:01)
[2020-04-25] MEDS ORDERED: traMADol 50 MG TAB PO PRN (10:01)
[2020-04-25] MEDS ORDERED: NALOXONE 0.4 MG/ML 1 ML VIAL IV PRN (10:01)
[2020-04-25] MEDS ORDERED: ONDANSETRON 4 MG/2 ML VIAL IVP PRN (10:01)
[2020-04-25] MEDS ORDERED: BISACODYL 10 MG SUPP RECTAL PRN (10:01)
[2020-04-25] MEDS ORDERED: TEMAZEPAM 15 MG CAP PO PRN (10:01)
[2020-04-25] MEDS ORDERED: HYDROcodone/APAP 5-325MG 1 EACH TAB PO PRN (10:01)
[2020-04-25] MEDS ORDERED: ACETAMINOPHEN TAB 325 MG TAB PO PRN (10:01)
[2020-04-25] MEDS ORDERED: HYDROmorphone 0.5 MG/0.5 ML SYRINGE IVP PRN ×2 (10:01)
[2020-04-25] MEDS ORDERED: fentaNYL (PF) 50 MCG/ML 2 ML AMP ONE (10:18)
[2020-04-25] MEDS ORDERED: TRANEXAMIC ACID 1,000 MG/10 ML VIAL ONE (10:18)
[2020-04-25] MEDS ORDERED: ONDANSETRON 4 MG/2 ML VIAL ONE (10:18)
[2020-04-25] MEDS ORDERED: PROPOFOL 10 MG/ML 20 ML VIAL IV ONE (10:18)
[2020-04-25] MEDS ORDERED: MIDAZOLAM 2 MG/2 ML VIAL ONE (10:18)
[2020-04-25] MEDS ORDERED: SUCCINYLCHOLINE CHLORIDE 100 MG/5 ML SYR IV ONE (10:18)
[2020-04-25] MEDS ORDERED: LIDOCAINE 1% INJ 10MG/ML (20 ML MDV) ONE (10:18)
[2020-04-25] MEDS ORDERED: SODIUM CHLORIDE 0.9% 100 ML BAG ONE (10:18)
--- NOTE | 2020-04-25 10:41 | P.ANPRN ---
Procedure Note - Anesthesia - Nerve Block Performed Right Adductor Canal Date of Procedure: 04/25/20 Procedure Start Time: 08:47 Procedure Stop Time: 09:02 Location of Patient: PreOp Indication: Acute Post-Operative Pain, Requested by Surgeon (Dr Mark) Sedation Type: Sedate with meaningful contact maintained Preparation: Sterile Prep, Sterile Dressing Position: Supine Catheter: Indwelling Needle Types: Pajunk Needle Gauge: 21 Ultrasound used to visualize needle placement: Yes Ultrasound used to observe medication spread: Yes Injectate: 0.5% Ropivacaine (see comment for volume) (20cc) Blood Aspirated: No Pain Paresthesia on Injection Noted: No Resistance on Injection: Normal Image Stored and Saved: Yes Events: Uneventful and Well Tolerated
[2020-04-25] MEDS ORDERED: ceFAZolin 3,000 MG in SODIUM CHLORIDE 0.9% IRRIGATIO 3,000 ML IRRIGATION ONE (10:51)
[2020-04-25] MEDS ORDERED: LACTATED RINGERS 1,000 ML IV ONE ×2 (11:49→14:00)
[2020-04-25] MEDS ORDERED: HYDROmorphone 0.5 MG/0.5 ML SYRINGE IVP ONE (12:40)
--- NOTE | 2020-04-25 12:42 | XR ---
EXAMINATION TYPE: XR knee limited RT DATE OF EXAM: 04/25/2020 COMPARISON: 01/24/2012 HISTORY: 70-year-old female evaluation for postoperative abnormality in alignment TECHNIQUE: 2 views FINDINGS: Images show placement of right knee total arthroplasty. Both distal femoral and proximal tibial compo nents of the prosthesis appear well seated without periprosthetic fracture. Alignment grossly anatomi c. Anterior soft tissue swelling with scattered soft tissue air as well as intra-articular air and elsa int fluid compatible with recent operation. IMPRESSION: Uncomplicated postoperative appearance right total knee arthroplasty.
[2020-04-25] MEDS: HYDROmorphone 1 MG/ML 1 ML SYRINGE IVP ONE ×2 (12:46→12:50)
[2020-04-25] MEDS ORDERED: ROPIVACAINE 0.2%-NS ON-Q PUMP 1,090 MG, EMPTY PAIN BALL 1 EACH MISCELLANE PRN (13:01)
[2020-04-25] MEDS: HYDROmorphone 0.5 MG/0.5 ML SYRINGE IVP PRN (17:26)
[2020-04-25] MEDS: LACTATED RINGERS 1,000 ML IV SCH (17:27)
[2020-04-25 20:38] VITALS: RESP 18
[2020-04-25] MEDS: TIMOLOL 0.5% OPHTH DROPS 5 ML BTL BOTH EYES SCH (20:49)
[2020-04-25] MEDS: AMITRIPTYLINE HCL 50 MG TAB PO SCH (20:49)
[2020-04-25] MEDS: BRIMONIDINE TARTRATE 0.2% DROPS 5 ML BTL BOTH EYES SCH (20:49)
[2020-04-25] MEDS ORDERED: SENNOSIDES-DOCUSATE SODIUM 1 EACH TAB PO SCH (21:00)
[2020-04-25] MEDS ORDERED: PANTOPRAZOLE 40 MG TABLET PO SCH (21:00)
[2020-04-25] MEDS ORDERED: ATORVASTATIN 20 MG TAB PO SCH (21:00)
[2020-04-25] MEDS ORDERED: DILTIAZEM CD 180 MG CAP.ER.24H PO SCH (21:00)
--- NOTE | 2020-04-25 22:14 | OP ---
OPERATIVE REPORT DATE OF PROCEDURE: 04/25/2020. SURGEON: Dylan Mark M.D. FRAMING CARPENTER: Anish Plata PA-C. PREOPERATIVE DIAGNOSIS: Right knee osteoarthrosis. POSTOPERATIVE DIAGNOSIS: Right knee osteoarthrosis. OPERATION: Right total knee arthroplasty. ANESTHESIA: General endotracheal. ESTIMATED BLOOD LOSS: 100 mL. TOURNIQUET: Tourniquet time was 45 minutes at 250 mmHg. COMPLICATIONS: None apparent. DRAINS: None. DISPOSITION: Post-Anesthesia Care Unit. INDICATIONS: Nidia is a very pleasant 70-year-old female with a longstanding history of right knee pain. History and physical examination are consistent with advanced right knee osteoarthrosis. She has been through significant nonoperative management up to this point. Further treatment options were discussed, and she has decided to go forward with right total knee arthroplasty. The risks of the procedure were discussed with her in detail. These risks include but are not limited to risk of infection, nerve damage, bleeding, pain, and a small risk of deep vein thrombosis which could lead to fatal pulmonary embolism. There is also a risk of loosening of the implant which could require revision operation. The patient understands these risks. All of her questions were answered to her satisfaction. Appropriate informed consent was obtained. DESCRIPTION OF THE PROCEDURE: The patient was identified in the preoperative holding area. Surgical site was marked by both the patient and myself. She was given 2 grams of Ancef IV for prophylactic purposes. She was then transferred to the operative suite. She was placed supine on the operating room table. Spinal anesthetic was then administered and dosed per the anesthesia department without apparent complication. Examination under anesthesia was then performed. The patient was 2-3 degrees shy of full extension. She had 100 degrees of flexion, and the medial collateral ligament, lateral collateral ligament and posterior cruciate ligaments were stable. Tourniquet was then placed high on the right upper thigh, well padded in preparation for surgery. The patient's right lower extremity was then prepped and draped in the usual sterile fashion. A standard surgical pause was then undertaken to ensure that we were operating on the correct site and that appropriate preoperative antibiotics had been given. All staff in the room were in agreement and we proceeded. The outlines of the patella were marked with a surgical pen. A planned 12 cm vertical incision centered over the patella was marked with a surgical pen. Leg was then exsanguinated with an Esmarch dressing. The knee was then flexed and the tourniquet was inflated to 250 mmHg. The total tourniquet time for the procedure was 45 minutes. Incision was then made with a 10-blade scalpel. Dissection was carried down sharply to the overlying fascia. Great care was taken to minimize the skin flaps. The knee was then exposed using a standard medial parapatellar approach. A small cuff of quadriceps tendon was then left for suturing. She was in a bit of varus preoperatively. A standard medial release was then made. Superficial medial collateral ligament was dissected off of the bone and around to the posterior aspect of the proximal tibia. The medial meniscus was then excised as well. The lateral meniscus was also released anteriorly. The leg was then externally rotated. The patella was everted. The knee was flexed. The retractors were then placed to protect the collateral ligaments. I then proceeded to remove the infrapatellar fat pad. This was excised sharply tangentially with the fibers of the patellar tendon. I then proceeded to remove the peripheral osteophytes. This was done with a rongeur. I then proceeded with the distal femoral resection. She did have near-full extension. A planned 9 mm resection was then done. The femoral canal was then entered in the midline of the femur approximately 10 mm anterior to the origin of the posterior cruciate ligament. The kevin was then advanced down the center of the femur and placed intramedullary. Based on the preoperative radiographs, the angle between the anatomic and mechanical axis of the femur was approximately 4-5 degrees. The valgus angle of the distal femoral cutting guide was then set at 4 degrees for the right knee. The distal femoral cutting guide was then advanced over the intramedullary kevin. This was seated firmly against the femur. I then, as mentioned, planned to take 9 mm off the distal femur. The cutting block was then secured onto the femur with pins. The jig was removed and the distal femoral cut was made through the slot of the block. The pins were then removed and the distal femoral cutting block was removed. The accuracy of the distal femoral cuts was checked with 2 flat bars. I then proceeded with femoral sizing. The posterior referencing sizing guide was held firmly against the resected distal surface of the femur. The posterior condyles were resting on the posterior plane of the guide. The sizing stylus was then placed onto the anterior femur. The size was measured as a size 6. I then assessed for femoral rotation. The plan was for 3 degrees of external rotation. Three degrees of external rotation was placed onto the jig. These holes were then marked. I then confirmed the rotation by 3 separate methods. This was done using the epicondylar axis as well as Whitesides line and posterior referencing. It was deemed that the external rotation was proper. I then went forward with placing the femoral cutting block. This was placed over the previously placed pin holes. The Ronny wing was then placed onto the anterior slots to ensure that we would not notch the anterior femur with the anterior femoral cut. I then proceeded with the anterior femoral cut. This was flush with the anterior cortex of the femur. Posterior cuts were then made followed by the anterior chamfer cut, and then the posterior chamfer cut. The cutting block was then removed. Throughout the resection, the collateral ligaments were protected with retractors. I then placed a trial size 6 femur. It was slightly wide, but the narrow fit flush with the end of the femur. The drill holes were then made. I then proceeded with the tibial cut. I planned for a cruciate-retaining knee. The guide was placed and set for varus, valgus and for slope. The height was set for an approximate 2 mm resection from the medial tibial plateau, which was the lower side. I was happy with the alignment and the amount of resection. The cutting block was then pinned to the proximal tibia. The alignment kevin was removed and the proximal tibia was resected with a reciprocating saw. Again this was done with retractors protecting the collateral ligaments as well as the posterior cruciate ligament. I then proceeded to evaluate the flexion and extension gaps. A 10 mm block was then placed. The flexion and extension gaps were equal. I then proceeded with the resection of the posterior osteophytes. She had very minimal posterior osteophytes. This was done using a curved osteotome. This resected the posterior osteophytes, and posterior capsule stripping was done off the posterior aspect of the femur at this time. The osteophytes were then removed. I then proceeded with resection of the patella. The thickness of the patella was measured using the caliper. The thickness was approximately 22 mm. Thickness of the anticipated patellar dome was taken into account. Resection was then performed and confirmed to be equal in 4 quadrants using a caliper. Approximately 14 mm of bone remained after the resection. A 29 x 8 standard patellar trial was then placed. The holes were drilled and the trial was then placed. I then proceeded with sizing the tibial plate. A size C tibial plate fit very nicely. I then placed the trial femur and the tibial tray and the patellar button. A 10 mm trial tibial insert was also placed. The components fit very nicely. She had full extension and flexion. The extension and flexion gaps were equal and stable to both varus and valgus stress. The patella tracked appropriately. The tibial tray rotation was marked with a Bovie. This was externally rotated properly. I then proceeded with tibial preparation. I first drilled the femoral holes and removed the femoral component. The tibial tray was then set for proper external rotation as well as mediolateral placement onto the tibia. It was then pinned into place. I then proceeded with punching the keel. I then decided to proceed with cementing of all of our components. The knee was thoroughly irrigated with sterile saline solution via pulse lavage. The lateral geniculate artery was identified and cauterized. All blood was removed from around the bone of the tibia, femur and patella with pulse lavage. I then proceed with cementing. Two packs of antibiotic bone cement were prepared on the back table by the surgical clinical reviewer. I then proceeded with cementing the tibia first. The cement was impacted into the keel as well as deeply seated in the bone. A second coat of cement was then placed. The tibia was then impacted into place. Excess cement was removed with Coco's and jokers. I then proceed with cementing of the femoral component. The femoral component was also cemented using standard technique. Excess cement was removed. A 10 mm trial was then placed in the knee. It was brought into full extension with a constant axial load placed until the cement had hardened. The patellar component was then cemented. This was held firmly with a compressive device until the cement had dried. When the cement had dried, the knee was taken out of extension. All excess cement was removed from around the prosthesis. I then trialed the knee with a 10 mm insert. The flexion and extension gaps were appropriate. The knee was stable. It came into full extension. I decided to go forward with a 10 mm cross-linked cruciate-retaining tibial insert. Polyethylene was then placed onto the tibial tray and locked into place. The knee was then reduced. The knee was again further irrigated with sterile saline solution with antibiotic added. The tourniquet was then deflated. Total tourniquet time for the procedure was 45 minutes at 250 mmHg. The final components were a Sarah Persona size 6 narrow cruciate-retaining femoral component, a size C tibial tray, a 10 mm medial- congruent cruciate-retaining polyethylene insert, and a 29 x 8 patella. I then proceeded with closure. Again the knee was thoroughly irrigated. The quadriceps tendon and the medial retinaculum were reapproximated with #2 Ethibond suture. The extensor mechanism was then closed with a running #2 Quill suture. Subcutaneous tissues were closed with 2-0 Vicryl interrupted suture. The skin was closed with a running 3-0 Quill suture. Dermabond was applied to the incision. Sterile compressive dressings were then applied. All sponge and needle counts were deemed correct prior to closure. The patient tolerated the procedure without apparent complication. She was transferred to the recovery room in stable condition. MMODL / IJN: [id number] /
[2020-04-25] MEDS: HYDROcodone/APAP 10-325MG 1 EACH TAB PO PRN (22:58)
[2020-04-26] MEDS: LACTATED RINGERS 1,000 ML IV SCH ×2 (00:03→07:42)
[2020-04-26] MEDS: HYDROmorphone 0.5 MG/0.5 ML SYRINGE IVP PRN (02:03)
[2020-04-26] MEDS ORDERED: LEVOTHYROXINE 50 MCG TAB PO SCH (06:30)
[2020-04-26 06:50] LABS: Basophils % (A) 0 %; Eosinophils % (A) 0 %; HCT 36.3 % (34.0-46.0); HGB 11.8 gm/dL (11.4-16.0); Hypochromasia Slight; Lymphocytes # (A) 1.4 k/uL (1.0-4.8); Lymphocytes % (A) 10 %; MCH 29.5 pg (25.0-35.0); MCHC 32.4 g/dL (31.0-37.0); MCV 90.9 fL (80.0-100.0); Mean Platelet Volume 8.3; Monocytes # (A) 0.4 k/uL (0-1.0); Monocytes % (A) 3 %; Neutrophils # (A) 12.7 k/uL (1.3-7.7); Neutrophils % (A) 87 %; Platelet Count 225 k/uL (150-450); RBC 3.99 m/uL (3.80-5.40); RDW 13.8 % (11.5-15.5); WBC 14.6 k/uL (3.8-10.6)
[2020-04-26] MEDS: BRIMONIDINE TARTRATE 0.2% DROPS 5 ML BTL BOTH EYES SCH (07:41)
[2020-04-26] MEDS: TIMOLOL 0.5% OPHTH DROPS 5 ML BTL BOTH EYES SCH (07:41)
[2020-04-26] MEDS: AMITRIPTYLINE HCL 50 MG TAB PO SCH (07:41)
[2020-04-26] MEDS: HYDROcodone/APAP 10-325MG 1 EACH TAB PO PRN (07:47)
[2020-04-26] MEDS ORDERED: MONTELUKAST 10 MG TAB PO SCH (09:00)
[2020-04-26] MEDS ORDERED: ISOSORBIDE MONONITRATE ER 30 MG TAB.ER.24H PO SCH (09:00)
[2020-04-26] MEDS ORDERED: LISINOPRIL 2.5 MG TAB PO SCH (09:00)
[2020-04-26] MEDS ORDERED: CLOPIDOGREL 75 MG TAB PO SCH (09:00)
[2020-04-26 09:33] VITALS: BP 100/59; PULSE 89; TEMP 98.1
--- NOTE | 2020-04-26 10:51 | P.CONS ---
History of Present Illness - Reason for Consult Consult date: 04/26/20 Medical management hypertension - History of Present Illness This is a 70-year-old white female well-known to the practice. She was just seen 6 days ago for preop clearance. She was doing well at that time. Her laboratory studies were essentially normal. She is cleared by cardiology. She underwent a right total knee arthroplasty for her ongoing right knee osteoarthritis with Dr. Dylan Mark. She currently has a pain pump that she'll continue for 2-3 days per orthopedics and anesthesia. She denies any current complaints. She denies any chest pains compression from short of breath no nausea or vomiting. She is walking with a walker at this time. She plans on going home with the help care from her . Review of Systems All systems: negative Past Medical History Past Medical History: Asthma, Coronary Artery Disease (CAD), CVA/TIA, Eye Disorder, GERD/Reflux, Hyperlipidemia, Hypertension, Myocardial Infarction (NC), Musculoskeletal Disorder, Osteoarthritis (OA), Sleep Apnea/CPAP/BIPAP Additional Past Medical History / Comment(s): GLAUCOMA, IGA RESPONSE TRIGGERS BRONCHITIS OR PNEUMONIA., LUMBAR DDD, TIA 2012- NO RESIDUAL, USES C-PAP, HIATAL HERNIA, HX KIDNEY STONES. Last Myocardial Infarction Date:: 09/2005 History of Any Multi-Drug Resistant Organisms: None Reported Past Surgical History: Appendectomy, Back Surgery, Bladder Surgery, Breast Surgery, Cholecystectomy, Heart Catheterization, Hysterectomy, Orthopedic Surgery Additional Past Surgical History / Comment(s): LT KNEE ARTHROSCOPY. LT CTR. HX KIDNEY STONE REMOVAL 10/2012, [facility]. PAIN CLINIC PROCEDURES, BREAST BX LT BREAST, TRIGGER FINGER., LUMBAR FUSION., Past Anesthesia/Blood Transfusion Reactions: No Reported Reaction Past Psychological History: No Psychological Hx Reported Smoking Status: Never smoker Past Alcohol Use History: None Reported Past Drug Use History: None Reported - Past Family History Mother Family Medical History: Cancer, Hypertension Additional Family Medical History / Comment(s): FROM THYROID CA, Father Family Medical History: Cancer Additional Family Medical History / Comment(s): FROM STOMACH CA, HX ALCOHOLISM Medications and Allergies Home Medications Medication Instructions Recorded Confirmed Type Clopidogrel Bisulfate [Clopidogrel] 75 mg PO DAILY 06/10/14 04/25/20 History Isosorbide Dinitrate 30 mg PO DAILY 06/10/14 04/25/20 History Meloxicam 7.5 mg PO DAILY 06/10/14 04/25/20 History Montelukast [Singulair] 10 mg PO DAILY 10/01/15 04/25/20 History Diltiazem HCl [Diltiazem HCl 24Hr 360 mg PO HS 04/07/16 04/25/20 History ER] Timolol 0.5% Ophth Soln [Timoptic 1 drop BOTH EYES BID 04/07/16 04/25/20 History 0.5% Ophth Soln] Amitriptyline HCl 50 mg PO BID 01/29/19 04/25/20 History Ergocalciferol [Vitamin D2 50,000 unit PO SA 01/29/19 04/25/20 History (DRISDOL)] Lisinopril [Zestril] 2.5 mg PO DAILY 01/29/19 04/25/20 History Levothyroxine Sodium [Synthroid] 50 mcg PO DAILY 02/07/19 04/25/20 History Atorvastatin [Lipitor] 20 mg PO HS 04/23/20 04/25/20 History Brimonidine Tartrate [Alphagan P 1 drops BOTH EYES BID 04/23/20 04/25/20 History 0.2% Ophth Soln] L.acidoph,Paracasei, B.lactis 1 each PO DAILY 04/23/20 04/25/20 History [Probiotic] Pantoprazole [Protonix] 40 mg PO HS 04/23/20 04/25/20 History HYDROcodone/APAP 10-325MG [[place] 1 each PO Q6H PRN tab 04/26/20 Rx 10-325] HYDROcodone/APAP 7.5-325MG [[place] 1 - 2 tab PO Q6HR PRN 7 Days #42 04/26/20 Rx 7.5-325] tab Temazepam [Restoril] 15 mg PO HS PRN cap 04/26/20 Rx Allergies Allergy/AdvReac Type Severity Reaction Status Date / Time codeine Allergy Nausea & Verified 04/25/20 08:07 Vomiting & Diarrhea levofloxacin [From Levaquin] Allergy Rapid Verified 04/25/20 08:07 Heart Rate Physical Exam Vitals: Vital Signs Temp Pulse Pulse Resp BP BP Pulse Ox 04/26/20 08:00 98.1 F 89 18 100/59 91 L 05/30/20 05:00 98.5 F 87 18 97/59 92 L 04/25/20 20:37 98.8 F 90 18 116/66 92 L 04/25/20 14:24 97.8 F 91 16 107/66 96 04/25/20 13:40 94 12 109/56 97 04/25/20 13:15 94 16 115/58 100 04/25/20 12:50 97 18 107/58 97 04/25/20 12:38 98 16 120/59 100 04/25/20 12:10 98 F 113 H 16 114/57 96 Intake and Output 04/25/20 04/26/20 04/26/20 22:59 06:59 14:59 Intake Total 50 600 360 Balance 50 600 360 Intake: Intake, IV Titration 50 600 Amount Lactated Ringers 1,000 ml 600 @ 75 mls/hr IV .[id number] [facility] Rx#:[id number] ceFAZolin 2 gm In Sodium 50 Chloride 0.9% 50 ml @ 100 mls/hr IVPB ONCE ONE Rx# :[id number] Oral 360 Other: Voiding Method Toilet Toilet # Voids 2 3 # Bowel Movements 0 GENERAL: Well-appearing, well-nourished and in no acute distress. She is slightly obese HEAD: Atraumatic, normocephalic. EYES: Pupils equal round and reactive to light, extraocular movements intact, sclera anicteric, conjunctiva are normal. ENT:nares patent, oropharynx clear without exudates. Moist mucous membranes. NECK: Normal range of motion, supple without lymphadenopathy or JVD, no thyromegaly LUNGS: Breath sounds clear to auscultation bilaterally and equal. No wheezes rales or rhonchi. HEART: Regular rate and rhythm without murmurs, rubs or gallops.S1S2 Normal ABDOMEN: Soft, nontender, normoactive bowel sounds. No guarding, no rebound. No masses appreciated. EXTREMITIES: no pitting or edema. No clubbing or cyanosis. There is a pain pump and dressing to her right knee. Jobst hose are in place on the left side. NEUROLOGICAL: Cranial nerves II through XII grossly intact. Normal speech, normal gait. PSYCH: Normal mood, normal affect. SKIN: Warm, Dry, normal turgor, no rashes or lesions noted. Results CBC & Chem 7: 04/26/20 05:58 Labs: Abnormal Lab Results - Last 24 Hours (Table) 04/26/20 Range/Units 05:58 WBC 14.6 H (3.8-10.6) k/uL Neutrophils # 12.7 H (1.3-7.7) k/uL Assessment and Plan (1) Essential (primary) hypertension Current Visit: Yes Status: Acute Code(s): I10 - ESSENTIAL (PRIMARY) HYP ERTENSION SNOMED Code(s): 14838639 (2) Pure hypercholesterolemia, unspecified Current Visit: Yes Status: Acute Code(s): E78.00 - PURE HYPERCHOLESTEROLEMIA, UNSPECIFIED SNOMED Code(s): 952801601 (3) Hypothyroidism, unspecified Current Visit: Yes Status: Acute Code(s): E03.9 - HYPOTHYROIDISM, UNSPECIFIED SNOMED Code(s): 71404073 (4) H/O Prinzmetal angina Current Visit: Yes Status: Acute Code(s): Z86.79 - PERSONAL HISTORY OF OTHER DISEASES OF THE CIRCULATORY SYSTEM SNOMED Code(s): 949896095 (5) Osteoarthritis of left knee Current Visit: No Status: Acute Priority: Medium Code(s): M17.12 - UNILATERAL PRIMARY OSTEOARTHRITIS, LEFT KNEE SNOMED Code(s): 026437389229431 (6) Status post total left knee replacement Current Visit: No Status: Acute Priority: Medium Code(s): Z96.652 - PRESENCE OF LEFT ARTIFICIAL KNEE JOINT SNOMED Code(s): 3006531289632 Plan: She'll continue on her Plavix for anticoagulation. Orthopedics is given her hydrocodone for pain. She'll remain on her home medications of atorvastatin, levothyroxine, lisinopril, Cardizem, Imdur, Singulair, Protonix She appears to be doing well and can most likely be discharged home today. He'll have her follow-up in the office in 2 weeks Thank you very much for allowing us to participate in this patient's care. Please contact us should you have any questions.
--- NOTE | 2020-04-26 10:59 | P.DS ---
Providers Expected date of discharge: 04/26/20 Attending physician: Dylan Mark Consults: 04/25/20 10:01 Consult Physician Routine Consulting Provider: Richard Tinoco Consult Reason/Comments: post op medical management Do you want consulting provider notified?: Yes Primary care physician: Richard Tinoco [facility] Course: This is a 70-year-old female who was last seen by Dr. Mark with complaint of continued right knee pain. The patient has a known history of degenerative arthritis of the right knee and presents to discuss surgical options. After discussion and consideration the patient elects to proceed with total right knee arthroplasty. The patient is seen preoperatively by Dr. Tinoco and cleared for surgery. The patient is admitted to [facility] for total right knee arthroplasty. The procedures performed without complication or sequelae. Patient is doing well postoperatively. Vital signs are stable at discharge. Labs are stable at discharge. The patient is seen and examined bedside this morning. The patient states she is doing well and complaining of mild right knee pain, although it is well- controlled on oral medication. The patient has been up with physical therapy and practicing stairs. Patient is ambulating well with walker with minimal assistance. The patient is planning to discharge home today with home health services and help from her . The patient is tolerating her diet well. She is urinating without issue. The patient denies chest pain, shortness breath, nausea, vomiting, fevers, chills. Overall the patient feels well this morning. She has no complaints at the time of my exam. On examination, the patient is sitting up in the bedside chair in no apparent distress. She is alert and oriented 3. On inspection of the right lower extremity, there is a clean, dry, intact dressing in place of the anterior knee with no bleeding or drainage through the dressing. Right calf is soft and nontender to palpation. The patient good strength and range of motion of the right ankle. Right lower extremity is warm and well-perfused with brisk capillary refill distally. Dorsalis pedis pulse +2. The patient is discharged to home on post-operative day #1 pending medical clearance. Please see orders and refer to the med rec for accurate list of medications. Patient Condition at Discharge: Fair Plan - Discharge Summary Discharge Rx Participant: Yes New Discharge Prescriptions: New HYDROcodone/APAP 7.5-325MG [[place] 7.5-325] 1 - 2 tab PO Q6HR PRN 7 Days #42 tab PRN Reason: Pain HYDROcodone/APAP 10-325MG [[place] 10-325] 1 each PO Q6H PRN tab PRN Reason: Pain Scale 6 To 10 Temazepam [Restoril] 15 mg PO HS PRN cap PRN Reason: Insomnia Continue Isosorbide Dinitrate 30 mg PO DAILY Clopidogrel Bisulfate [Clopidogrel] 75 mg PO DAILY Meloxicam 7.5 mg PO DAILY Montelukast [Singulair] 10 mg PO DAILY Timolol 0.5% Ophth Soln [Timoptic 0.5% Ophth Soln] 1 drop BOTH EYES BID Diltiazem HCl [Diltiazem HCl 24Hr ER] 360 mg PO HS Ergocalciferol [Vitamin D2 (DRISDOL)] 50,000 unit PO SA Amitriptyline HCl 50 mg PO BID Lisinopril [Zestril] 2.5 mg PO DAILY Levothyroxine Sodium [Synthroid] 50 mcg PO DAILY Brimonidine Tartrate [Alphagan P 0.2% Ophth Soln] 1 drops BOTH EYES BID Atorvastatin [Lipitor] 20 mg PO HS Pantoprazole [Protonix] 40 mg PO HS L.acidoph,Paracasei, B.lactis [Probiotic] 1 each PO DAILY Discharge Medication List Clopidogrel Bisulfate [Clopidogrel] 75 mg PO DAILY 06/10/14 [History] Isosorbide Dinitrate 30 mg PO DAILY 06/10/14 [History] Meloxicam 7.5 mg PO DAILY 06/10/14 [History] Montelukast [Singulair] 10 mg PO DAILY 10/01/15 [History] Diltiazem HCl [Diltiazem HCl 24Hr ER] 360 mg PO HS 04/07/16 [History] Timolol 0.5% Ophth Soln [Timoptic 0.5% Ophth Soln] 1 drop BOTH EYES BID 04/07/16 [History] Amitriptyline HCl 50 mg PO BID 01/29/19 [History] Ergocalciferol [Vitamin D2 (DRISDOL)] 50,000 unit PO SA 01/29/19 [History] Lisinopril [Zestril] 2.5 mg PO DAILY 01/29/19 [History] Levothyroxine Sodium [Synthroid] 50 mcg PO DAILY 02/07/19 [History] Atorvastatin [Lipitor] 20 mg PO HS 04/23/20 [History] Brimonidine Tartrate [Alphagan P 0.2% Ophth Soln] 1 drops BOTH EYES BID 04/23/20 [History] L.acidoph,Paracasei, B.lactis [Probiotic] 1 each PO DAILY 04/23/20 [History] Pantoprazole [Protonix] 40 mg PO HS 04/23/20 [History] HYDROcodone/APAP 10-325MG [[place] 10-325] 1 each PO Q6H PRN tab 04/26/20 [Rx] HYDROcodone/APAP 7.5-325MG [[place] 7.5-325] 1 - 2 tab PO Q6HR PRN 7 Days #42 tab 04/26/20 [Rx] Temazepam [Restoril] 15 mg PO HS PRN cap 04/26/20 [Rx] Follow up Appointment(s)/Referral(s): [facility], [NON-STAFF] - 1 Week Dylan Mark MD [STAFF PHYSICIAN] - 10 Days Patient Instructions/Handouts: *Surgery [facility] - On-Q Pain Pump Discharge Instructions, Joint Replacement Surgery (DC) Activity/Diet/Wound Care/Special Instructions: Keep wound clean and dry Take meds as directed. Continue Plavix for anticoagulation. Follow-up with Dr. Mark in office Weight bear as tolerated May shower in 3 days if no bleeding Discharge Disposition: HOME WITH HOME HEALTH SERVICES
[2020-04-26] MEDS ORDERED: MULTIVITAMINS, THERA 1 EACH TAB PO SCH (12:00)
== END 2020-04-26 11:54 | disposition home health service (06) ==
LOC: OR 07:50 → 5NMEDONC 12:11 → OR 04-26 11:54
PROVIDERS: ATTEND Orthopaedic Surgery Sports Medicine
DX: M17.11 Unilateral primary osteoarthritis, right knee (principal); M21.161 Varus deformity, not elsewhere classified, right knee; I10 Essential (primary) hypertension; I25.10 Atherosclerotic heart disease of native coronary artery without angina pectoris; I25.2 Old myocardial infarction; J45.909 Unspecified asthma, uncomplicated; K21.9 Gastro-esophageal reflux disease without esophagitis; G47.33 Obstructive sleep apnea (adult) (pediatric); H40.9 Unspecified glaucoma; E03.9 Hypothyroidism, unspecified; E78.5 Hyperlipidemia, unspecified; Z96.652 Presence of left artificial knee joint; Z79.51 Long term (current) use of inhaled steroids; Z79.1 Long term (current) use of non-steroidal anti-inflammatories (NSAID); Z79.02 Long term (current) use of antithrombotics/antiplatelets; Z79.890 Hormone replacement therapy; Z79.899 Other long term (current) drug therapy; Z88.1 Allergy status to other antibiotic agents; Z88.5 Allergy status to narcotic agent; Z98.1 Arthrodesis status; Z90.49 Acquired absence of other specified parts of digestive tract; Z90.710 Acquired absence of both cervix and uterus; Z98.890 Other specified postprocedural states; Z82.49 Family history of ischemic heart disease and other diseases of the circulatory system; E78.00 Pure hypercholesterolemia, unspecified; E66.9 Obesity, unspecified; Z68.34 Body mass index [BMI] 34.0-34.9, adult; Z99.89 Dependence on other enabling machines and devices; Z86.73 Personal history of transient ischemic attack (TIA), and cerebral infarction without residual deficits; Z87.442 Personal history of urinary calculi; Z80.8 Family history of malignant neoplasm of other organs or systems; Z80.0 Family history of malignant neoplasm of digestive organs; Z81.1 Family history of alcohol abuse and dependence
CPT/HCPCS: 97161; 64448; 76942; 85025; 88300; 73560; 27447; C1776; C1713; J2250; J0171; J1100; J0690 ×3; J2405; J2001; J3010; J1885; J1170 ×3; J2795 ×2; J0330; J2704; J0735

== ENCOUNTER 2020-05-04 20:39 | Emergency (ER) | payer MEDICARE, OTHER ==
[2020-05-04 20:54] VITALS: BP 115/65; PULSE 110; RESP 18; TEMP 98.5
[2020-05-04] MEDS ORDERED: MORPHINE SULFATE 4 MG/ML SYRINGE IM STA (21:09)
--- NOTE | 2020-05-04 21:17 | ED ---
General Adult HPI - General Chief complaint: Extremity Injury, Lower Stated complaint: rt knee pain, post op Time Seen by Provider: 05/04/20 20:56 Source: patient Mode of arrival: ambulatory Limitations: no limitations - History of Present Illness Initial comments: Patient is 70-year-old female presenting to the emergency department with a chief complaint of right knee pain. Patient reports date 12 status post right knee arthroplasty performed by Dr. Mark. Patient reports today she was on her feet more than usual. States she was making it to a for a family dinner. Patient states she was up approximately on and off for about 4 total hours. States now she developed pain in the right knee and she is not able to get under control. Stay she took Rosebud at home but it is not taming the pain. States she has not been icing and elevating her leg today as directed. Denies any numbness or tingling. - Related Data Home Medications Medication Instructions Recorded Confirmed Clopidogrel Bisulfate [Clopidogrel] 75 mg PO DAILY 06/10/14 04/25/20 Isosorbide Dinitrate 30 mg PO DAILY 06/10/14 04/25/20 Meloxicam 7.5 mg PO DAILY 06/10/14 04/25/20 Montelukast [Singulair] 10 mg PO DAILY 10/01/15 04/25/20 Diltiazem HCl [Diltiazem HCl 24Hr 360 mg PO HS 04/07/16 04/25/20 ER] Timolol 0.5% Ophth Soln [Timoptic 1 drop BOTH EYES BID 04/07/16 04/25/20 0.5% Ophth Soln] Amitriptyline HCl 50 mg PO BID 01/29/19 04/25/20 Ergocalciferol [Vitamin D2 50,000 unit PO SA 01/29/19 04/25/20 (DRISDOL)] Lisinopril [Zestril] 2.5 mg PO DAILY 01/29/19 04/25/20 Levothyroxine Sodium [Synthroid] 50 mcg PO DAILY 02/07/19 04/25/20 Atorvastatin [Lipitor] 20 mg PO HS 04/23/20 04/25/20 Brimonidine Tartrate [Alphagan P 1 drops BOTH EYES BID 04/23/20 04/25/20 0.2% Ophth Soln] L.acidoph,Paracasei, B.lactis 1 each PO DAILY 04/23/20 04/25/20 [Probiotic] Pantoprazole [Protonix] 40 mg PO HS 04/23/20 04/25/20 Previous Rx's Medication Instructions Recorded HYDROcodone/APAP 10-325MG [[place] 1 each PO Q6H PRN tab 04/26/20 10-325] HYDROcodone/APAP 7.5-325MG [[place] 1 - 2 tab PO Q6HR PRN 7 Days #42 04/26/20 7.5-325] tab Temazepam [Restoril] 15 mg PO HS PRN cap 04/26/20 Allergies Allergy/AdvReac Type Severity Reaction Status Date / Time codeine Allergy Nausea & Verified 05/04/20 20:53 Vomiting & Diarrhea levofloxacin [From Levaquin] Allergy Rapid Verified 05/04/20 20:53 Heart Rate Review of Systems ROS Statement: Those systems with pertinent positive or pertinent negative responses have been documented in the HPI. ROS Other: All systems not noted in ROS Statement are negative. Past Medical History Past Medical History: Asthma, Coronary Artery Disease (CAD), CVA/TIA, Eye Disord er, GERD/Reflux, Hyperlipidemia, Hypertension, Myocardial Infarction ([place]), Musculoskeletal Disorder, Sleep Apnea/CPAP/BIPAP Additional Past Medical History / Comment(s): GLAUCOMA JOSE ALFREDO. EYES- GLASSES DAILY USE, IGA RESPONSE TRIGGERS ASTHMA, TRIGGER FINGER, LUMBAR DDD, TIA 2012- NO RESIDUAL, USES C-PAP Last Myocardial Infarction Date:: 09/2005 History of Any Multi-Drug Resistant Organisms: None Reported Past Surgical History: Joint Replacement, Orthopedic Surgery Additional Past Surgical History / Comment(s): LT KNEE ARTHROSCOPY. LT CTR. HX KIDNEY STONE REMOVAL 10/2012, JOSE ALFREDO LASER EYE SURG. PAIN CLINIC PROCEDURES, BREAST BX LT BREAST, right knee replacement, Past Anesthesia/Blood Transfusion Reactions: No Reported Reaction Past Psychological History: No Psychological Hx Reported Smoking Status: Never smoker Past Alcohol Use History: None Reported Past Drug Use History: None Reported - Past Family History Mother Family Medical History: Cancer, Hypertension Additional Family Medical History / Comment(s): FROM THYROID [place], Father Family Medical History: Cancer Additional Family Medical History / Comment(s): FROM STOMACH [place], HX ALCOHOLISM General Exam Limitations: no limitations General appearance: alert, in no apparent distress, obese Head exam: Present: atraumatic, normocephalic, normal inspection Eye exam: Present: normal appearance, PERRL, EOMI Pupils: Present: normal accommodation ENT exam: Present: normal exam, normal oropharynx, mucous membranes moist Neck exam: Present: normal inspection, full ROM Respiratory exam: Present: normal lung sounds bilaterally. Absent: respiratory distress, wheezes Cardiovascular Exam: Present: regular rate, normal rhythm, normal heart sounds Extremities exam: Present: tenderness (Tenderness along the medial patellar region.), normal capillary refill, joint swelling (Right knee), other (+2 ulnar and radial pulses bilaterally. +2 dorsalis pedis and posterior tibialis bilaterally.). Absent: normal inspection (Postop knee. Multiple sutures from the arthroplasty. Mild excoriations noted. Suture lines are healing well. No signs of infection.), full ROM (Limited range of motion with full flexion), calf tenderness (Negative Homans bilaterally.) Back exam: Present: normal inspection, full ROM Neurological exam: Present: alert, oriented X3 Psychiatric exam: Present: normal affect, normal mood Skin exam: Present: warm, dry, intact, normal color Course Vital Signs 05/04/20 20:50 Temperature 98.5 F Pulse Rate 110 H Respiratory 18 Rate Blood Pressure 115/65 O2 Sat by Pulse 95 Oximetry Medical Decision Making - Medical Decision Making Patient is 70-year-old female presenting to emergency Department with chief complaint right knee pain. She does day 12 status post right knee arthroplasty with Dr. Mark. And examined the incision site is healing well. She does have some swelling but states that has been there since the surgical procedure. Caryl ent has been on her feet today cooking turkey for a family dinner. Patient was given morphine in the ED. X-ray revealed no signs of any acute abnormalities. She has an appointment with Dr. Mark in the morning. Return parameters thoroughly discussed the patient was understanding and agreeable. Case discussed physician. Disposition Clinical Impression: Right knee pain Disposition: HOME SELF-CARE Condition: Stable Instructions (If sedation given, give patient instructions): Knee Pain (ED) Additional Instructions: Follow-up with Dr. Mark. Continue taking your Rosebud for pain at home. Return to emergency department if symptoms worsen. Is patient prescribed a controlled substance at d/c from ED?: No Referrals: Richard Tinoco MD [Primary Care Provider] - 1-2 days Time of Disposition: 22:03
--- NOTE | 2020-05-04 21:44 | XR ---
EXAMINATION TYPE: XR knee complete RT DATE OF EXAM: 05/04/2020 COMPARISON: None HISTORY: Pain post arthroplasty TECHNIQUE: Three-view right knee FINDINGS: Tibial and femoral components are present. No acute fractures are evident. No significant j oint effusion is evident. Soft tissues appear normal. IMPRESSION: 1. No acute osseous abnormality right knee.
== END 2020-05-04 22:14 | disposition home or self-care (01) ==
LOC: EC 20:39
DX: M25.561 Pain in right knee (principal); M79.89 Other specified soft tissue disorders; I25.10 Atherosclerotic heart disease of native coronary artery without angina pectoris; K21.9 Gastro-esophageal reflux disease without esophagitis; E78.5 Hyperlipidemia, unspecified; I10 Essential (primary) hypertension; I25.2 Old myocardial infarction; H40.9 Unspecified glaucoma; J45.909 Unspecified asthma, uncomplicated; G47.30 Sleep apnea, unspecified; Z79.1 Long term (current) use of non-steroidal anti-inflammatories (NSAID); Z79.890 Hormone replacement therapy; Z79.899 Other long term (current) drug therapy; Z79.02 Long term (current) use of antithrombotics/antiplatelets; Z96.651 Presence of right artificial knee joint; Z88.5 Allergy status to narcotic agent; Z88.1 Allergy status to other antibiotic agents; Z99.89 Dependence on other enabling machines and devices; Z86.73 Personal history of transient ischemic attack (TIA), and cerebral infarction without residual deficits
CPT/HCPCS: 73562; 96372; 99283; J2270

== ENCOUNTER → 2020-05-26 | Outpatient (CLI) | payer MEDICARE, OTHER ==
[2020-05-26 18:08] LABS: African American GFR (CKD) 75.6 (60.0-200.0); Albumin 4.5 g/dL (3.80-4.90); Albumin/Globulin Ratio 1.8 (1.60-3.17); Anion Gap 7.9 mmol/L (4.00-12.00); BUN/Creat Ratio 14.44 Ratio (12.00-20.00); Calcium 9.3 mg/dL (8.7-10.3); Carbon Dioxide 26.1 mmol/L (21.6-31.8); Globulin 2.5 g/dL (1.6-3.3); Non-African American GFR(CKD) 65.2 (60.0-200.0); Potassium 4.3 mmol/L (3.5-5.5); Total Bilirubin 0.4 mg/dL (0.2-1.2)
== END | disposition home or self-care (01) ==
LOC: LABWHC1 07:24
PROVIDERS: ATTEND Family Medicine
DX: R94.5 Abnormal results of liver function studies (principal)
CPT/HCPCS: 36415; 80053

== ENCOUNTER → 2020-07-25 | Outpatient (CLI) | payer MEDICARE, OTHER ==
[2020-07-25 16:39] LABS: Albumin 4.4 g/dL (3.80-4.90); Albumin/Globulin Ratio 1.76 (1.60-3.17); Bilirubin, Conjugated 0.2 mg/dL (0.20-0.40); Bilirubin,Unconjugated 0.2 mg/dL; Globulin 2.5 g/dL (1.6-3.3); Total Bilirubin 0.4 mg/dL (0.2-1.2); Total Protein 6.9 g/dL (6.2-8.2)
== END | disposition home or self-care (01) ==
LOC: LABWHC1 08:27
PROVIDERS: ATTEND Family Medicine
DX: R94.5 Abnormal results of liver function studies (principal)
CPT/HCPCS: 36415; 80076

== ENCOUNTER → 2020-09-30 | Outpatient (CLI) | payer MEDICARE, OTHER ==
--- NOTE | 2020-09-30 16:16 | PN ---
PROGRESS NOTE Progress note from the [facility]. Nidia is coming in for an annual check regarding obstructive sleep apnea. The patient continues to use a CPAP pressure of 10 cm of water. She is using a Dream Wear small- sized nose mask. Doing extremely well. Her only issue is pain in her back and she has undergone spinal fusion approximately 4 years ago and she is looking forward to undergo some pain shots by Neurology in regard to her pain control. This is affecting her sleep and it is waking her up in the middle of the night. Otherwise, her sleep apnea is well treated. Based on the compliance data on her CPAP machine, the patient has been averaging around 9.4 hours of CPAP use per night and CPAP use for more than 4 hours is 100%. Her leak is in order of 12 L/minute and her AHI is down to 0.9. Comorbid conditions include coronary artery disease, hyperlipidemia and hypothyroidism. No major tiredness or sleepiness or fatigue during the day. The patient has no aerophagia. No gastric distention. No weight loss and her weight is around 170 pounds. REVIEW OF SYSTEMS: Fourteen-point review of system was done and the positive findings are mentioned in history of present illness. Otherwise negative. PHYSICAL EXAMINATION: BP is 135/80, pulse is 90, respirations 18, temperature 97.8, height is 4, 10, weight is 170, BMI is 35.0, saturation 95% on room air. GENERAL APPEARANCE: Calm, comfortable. HEAD: Atraumatic, normocephalic. NECK: Supple, there is no JVD. No goiter or neck mass. LUNGS: Diminished otherwise clear. HEART: Heart sounds are regular rate and rhythm, normal S1, S2, no murmurs. ABDOMEN: Soft, nontender. No organomegaly. EXTREMITIES: No edema, no cyanosis or clubbing. IMPRESSION: 1. Obstructive sleep apnea, currently on CPAP at a pressure of 10 cm of water. The patient is well treated. 2. Hypersomnia, recovered while on CPAP therapy. The patient continues to be successfully treated with CPAP in regard to obstructive sleep apnea. 3. Obesity with a BMI of 34.9. 4. Hypothyroidism. 5. Coronary artery disease. 6. Hyperlipidemia. 7. History of TIA. 8. History of IgA deficiency. 9. History of osteoarthritis. PLAN: 1. Continue CPAP therapy at a pressure of 10 cm of water. 2. Keep same mask interface. 3. Encourage weight loss. 4. Treatment is successful, no need for any adjustments. Will continue to follow. See me back in a year's time in followup, earlier if needed. MMODL / IJN: [id number] /
== END | disposition home or self-care (01) ==
LOC: SLEEP 14:11
PROVIDERS: ATTEND Internal Medicine Critical Care Medicine
DX: G47.33 Obstructive sleep apnea (adult) (pediatric) (principal); G47.10 Hypersomnia, unspecified; E03.9 Hypothyroidism, unspecified; E78.5 Hyperlipidemia, unspecified; I25.10 Atherosclerotic heart disease of native coronary artery without angina pectoris; E66.9 Obesity, unspecified; Z68.34 Body mass index [BMI] 34.0-34.9, adult; Z99.89 Dependence on other enabling machines and devices; Z86.73 Personal history of transient ischemic attack (TIA), and cerebral infarction without residual deficits; Z86.2 Personal history of diseases of the blood and blood-forming organs and certain disorders involving the immune mechanism; Z87.39 Personal history of other diseases of the musculoskeletal system and connective tissue

== ENCOUNTER 2020-10-12 21:53 | Emergency (ER) | payer MEDICARE, OTHER ==
[2020-10-12 21:59] VITALS: RESP 16
[2020-10-12] MEDS ORDERED: SODIUM CHLORIDE 0.9% 1,000 ML IV STA (22:37)
[2020-10-12] MEDS ORDERED: ONDANSETRON 4 MG/2 ML VIAL IVP STA (22:37)
[2020-10-12] MEDS ORDERED: KETOROLAC 15 MG/ML 1 ML VIAL IVP STA (22:39)
[2020-10-12] MEDS ORDERED: HYDROmorphone 0.5 MG/0.5 ML SYRINGE IVP STA ×2 (22:42→23:11)
[2020-10-12 23:35] LABS: Basophils # (A) 0.1 k/uL (0-0.2); Basophils % (A) 1 %; Eosinophils # (A) 0.3 k/uL (0-0.7); Eosinophils % (A) 2 %; HGB 13.7 gm/dL (11.4-16.0); Lymphocytes # (A) 2.5 k/uL (1.0-4.8); Lymphocytes % (A) 20 %; MCH 29.3 pg (25.0-35.0); MCHC 33.4 g/dL (31.0-37.0); MCV 87.7 fL (80.0-100.0); Mean Platelet Volume 8.2; Monocytes # (A) 0.5 k/uL (0-1.0); Monocytes % (A) 4 %; Neutrophils % (A) 73 %; Platelet Count 249 k/uL (150-450); RBC 4.67 m/uL (3.80-5.40); RDW 13.8 % (11.5-15.5); WBC 12.4 k/uL (3.8-10.6)
[2020-10-12 23:46] LABS: Appearance,Urine Cloudy (Clear); Bacteria,Urine Rare /hpf; Bilirubin,Urine Negative (Negative); Blood,Urine Large (Negative); Color,Urine Yellow; Glucose,Urine (UA) Negative (Negative); Ketones,Urine Negative (Negative); Leukocyte Esterase,Urine Large (Negative); Mucus,Urine Rare /hpf; Nitrite,Urine Negative (Negative); PH, Urine 5.5 (5.0-8.0); Protein,Urine Trace (Negative); RBC,Urine 129 /hpf (0-5); Specific Gravity,Urine 1.018 (1.001-1.035); Squamous Epithelial Cell,Urine 1 /hpf (0-4); Urobilinogen,Urine <2.0 mg/dL (<2.0); WBC,Urine 165 /hpf (0-5)
[2020-10-13 00:04] LABS: Albumin 4.4 g/dL (3.5-5.0); Calcium 9.4 mg/dL (8.4-10.2); Potassium 4.2 mmol/L (3.5-5.1); Total Bilirubin 0.4 mg/dL (0.2-1.3); Total Protein 7.4 g/dL (6.3-8.2)
[2020-10-13] MEDS ORDERED: cefTRIAXone IN SWFI 1,000 MG/10 ML SYRINGE IVP STA (00:20)
--- NOTE | 2020-10-13 00:49 | CT ---
EXAM: CT Abdomen and Pelvis Without Intravenous Contrast CLINICAL HISTORY: ITS.REASON CT Reason: flank pain h/o kidney stones TECHNIQUE: Axial computed tomography images of the abdomen and pelvis without intravenous contrast. CTDI is 14.27 mGy and DLP is 712.9 mGy-cm. This CT exam was performed using one or more of the following dose reduction techniques: automated exposure control, adjustment of the mA and/or kV according to patient size, and/or use of iterative reconstruction technique. COMPARISON: CT dated 09/06/2013 FINDINGS: Lung bases: Bibasilar atelectasis. ABDOMEN: Liver: Hepatic steatosis. Gallbladder and bile ducts: Gallbladder is surgically absent. Pancreas: Unremarkable. Spleen: Unremarkable. Adrenals: Unremarkable. Kidneys and ureters: 7 mm calculus at the right UPJ which causes mild hydronephrosis. Additional nonobstructing calculi within the left kidney. Stomach and bowel: Unremarkable. PELVIS: Appendix: No findings to suggest acute appendicitis. Bladder: Unremarkable. Reproductive: Uterus is surgically absent. ABDOMEN and PELVIS: Intraperitoneal space: Unremarkable. Bones/joints: Post surgical changes of the spine. No acute fracture. No dislocation. Soft tissues: Unremarkable. Vasculature: Vascular calcifications. Lymph nodes: Unremarkable. IMPRESSION: 1. 7 mm calculus at the right UPJ which causes mild hydronephrosis. 2. Additional nonobstructing calculi within the left kidney.
[2020-10-13] MEDS ORDERED: ONDANSETRON 4 MG ODT STARTER PACK 2 TAB BTL PO STA (00:54)
[2020-10-13] MEDS ORDERED: TAMSULOSIN 0.4 MG CAP.ER.24H PO STA (00:54)
[2020-10-13] MEDS ORDERED: traMADol 50 MG STARTER PACK 3 TAB BTL PO STA (00:54)
--- NOTE | 2020-10-13 01:08 | ED ---
General Adult HPI - General Chief complaint: Abdominal Pain Stated complaint: Poss kidney stone Time Seen by Provider: 10/12/20 22:25 Source: patient Mode of arrival: ambulatory - History of Present Illness Initial comments: 70-year-old female presents to the emergency department with complaints of right flank pain that radiates into the right groin, onset this morning. Patient states she has had previous kidney stones and reports similar discomfort. Patient denies any nausea, vomiting, or urinary difficulty. States her pain was relieved with Motrin this morning, but recurred again this evening despite taking Motrin again. Patient states her last kidney stone was 3 to 5 years ago and she was able to pass it without additional intervention. Patient denies any recent rash, fever, chills, cough, shortness of breath, chest pain, diarrhea, constipation, numbness, tingling, dizziness, weakness, hematuria, dysuria, urinary urgency, urinary frequency, headache, visual changes, or any other complaints. - Related Data Home Medications Medication Instructions Recorded Confirmed Clopidogrel Bisulfate [Clopidogrel] 75 mg PO DAILY 06/10/14 04/25/20 Isosorbide Dinitrate 30 mg PO DAILY 06/10/14 04/25/20 Meloxicam 7.5 mg PO DAILY 06/10/14 04/25/20 Montelukast [Singulair] 10 mg PO DAILY 10/01/15 04/25/20 Diltiazem HCl [Diltiazem HCl 24Hr 360 mg PO HS 04/07/16 04/25/20 ER] Timolol 0.5% Ophth Soln [Timoptic 1 drop BOTH EYES BID 04/07/16 04/25/20 0.5% Ophth Soln] Amitriptyline HCl 50 mg PO BID 01/29/19 04/25/20 Ergocalciferol [Vitamin D2 50,000 unit PO SA 01/29/19 04/25/20 (DRISDOL)] lisinopriL [Zestril] 2.5 mg PO DAILY 01/29/19 04/25/20 Levothyroxine Sodium [Synthroid] 50 mcg PO DAILY 02/07/19 04/25/20 Atorvastatin [Lipitor] 20 mg PO HS 04/23/20 04/25/20 Brimonidine Tartrate [Alphagan P 1 drops BOTH EYES BID 04/23/20 04/25/20 0.2% Ophth Soln] L.acidoph,Paracasei, B.lactis 1 each PO DAILY 04/23/20 04/25/20 [Probiotic] Pantoprazole [Protonix] 40 mg PO HS 04/23/20 04/25/20 Previous Rx's Medication Instructions Recorded HYDROcodone/APAP 10-325MG [[place] 1 each PO Q6H PRN tab 04/26/20 10-325] HYDROcodone/APAP 7.5-325MG [[place] 1 - 2 tab PO Q6HR PRN 7 Days #42 04/26/20 7.5-325] tab Temazepam [Restoril] 15 mg PO HS PRN cap 04/26/20 Cephalexin [Keflex] 500 mg PO Q6HR #40 cap 10/13/20 Ondansetron [Zofran ODT] 4 mg PO Q8HR PRN #10 tab 10/13/20 Tamsulosin HCl [Flomax] 0.4 mg PO DAILY #7 cap 10/13/20 Allergies Allergy/AdvReac Type Severity Reaction Status Date / Time codeine Allergy Nausea & Verified 10/12/20 21:59 Vomiting & Diarrhea levofloxacin [From Levaquin] Allergy Rapid Verified 10/12/20 21:59 Heart Rate Review of Systems ROS Statement: Those systems with pertinent positive or pertinent negative responses have been documented in the HPI. ROS Other: All systems not noted in ROS Statement are negative. Past Medical History Past Medical History: Asthma, Coronary Artery Disease (CAD), CVA/TIA, Eye Disorder, GERD/Reflux, Hyperlipidemia, Hypertension, Myocardial Infarction ([place]), Musculoskeletal Disorder, Sleep Apnea/CPAP/BIPAP Additional Past Medical History / Comment(s): GLAUCOMA JOSE ALFREDO. EYES- GLASSES DAILY USE, IGA RESPONSE TRIGGERS ASTHMA, TRIGGER FINGER, LUMBAR DDD, TIA 2012- NO RESIDUAL, USES C-PAP Last Myocardial Infarction Date:: 09/2005 History of Any Multi-Drug Resistant Organisms: None Reported Past Surgical History: Joint Replacement, Orthopedic Surgery Additional Past Surgical History / Comment(s): LT KNEE ARTHROSCOPY. LT CTR. HX KIDNEY STONE REMOVAL 10/2012, JOSE ALFREDO LASER EYE SURG. PAIN CLINIC PROCEDURES, BREAST BX LT BREAST, right knee replacement, Past Anesthesia/Blood Transfusion Reactions: No Reported Reaction Past Psychological History: No Psychological Hx Reported Smoking Status: Never smoker Past Alcohol Use History: None Reported Past Drug Use History: None Reported - Past Family History Mother Family Medical History: Cancer, Hypertension Additional Family Medical History / Comment(s): FROM THYROID [place], Father Family Medical History: Cancer Additional Family Medical History / Comment(s): FROM STOMACH [place], HX ALCOHOLISM General Exam Limitations: no limitations (Well-developed, well-nourished female in no acute distress. Initial temperature 98.3, pulse 107, respirations 16, blood pressure 154/70, pulse ox 96% on room air.) General appearance: alert, in no apparent distress Respiratory exam: Present: normal lung sounds bilaterally. Absent: respiratory distress, wheezes, rales, rhonchi, stridor Cardiovascular Exam: Present: regular rate, normal rhythm, normal heart sounds. Absent: systolic murmur, diastolic murmur, rubs, gallop, clicks GI/Abdominal exam: Present: soft, normal bowel sounds. Absent: distended, tenderness, guarding, rebound, rigid Back exam: Present: CVA tenderness (R) Neurological exam: Present: alert, oriented X3, CN II-XII intact Psychiatric exam: Present: normal affect, normal mood Skin exam: Present: warm, dry, intact, normal color. Absent: rash Course Vital Signs 10/12/20 10/13/20 21:57 01:15 Temperature 98.3 F 98.6 F Pulse Rate 107 H 98 Respiratory 16 16 Rate Blood Pressure 154/70 146/68 O2 Sat by Pulse 96 97 Oximetry Medical Decision Making - Medical Decision Making 70-year-old female presents to the Emergency Department with complaints of right flank pain into the right groin, onset this morning. Patient reports a history of kidney stones and states this discomfort is similar. Denies nausea, vomiting, or urinary difficulty. Urinalysis positive for large amounts of blood and leukocyte esterase. CT of the abdomen and pelvis was obtained and showed a 7 mm calculus at the right UPJ which caused mild hydronephrosis. Additional nonobstructing calculi within the left kidney was visualized. Discomfort was treated with IV pain medicine and Rocephin was given for urinary infection; patient reports feeling improved. Discussed the importance of compliance with antibiotic therapy and follow-up care with primary care provider for a recheck; also encouraged to call urology for further evaluation and treatment of renal calculi. Patient was provided with a urine strainer. She verbalizes understan ding and agrees with this plan. - Lab Data Result diagrams: 10/12/20 23:03 10/12/20 23:03 Lab Results 10/12/20 10/12/20 10/12/20 Range/Units 23:03 23:03 23:03 WBC 12.4 H (3.8-10.6) k/uL RBC 4.67 (3.80-5.40) m/uL Hgb 13.7 (11.4-16.0) gm/dL Hct 41.0 (34.0-46.0) % MCV 87.7 (80.0-100.0) fL MCH 29.3 (25.0-35.0) pg MCHC 33.4 (31.0-37.0) g/dL RDW 13.8 (11.5-15.5) % Plt Count 249 (150-450) k/uL MPV 8.2 Neutrophils % 73 % Lymphocytes % 20 % Monocytes % 4 % Eosinophils % 2 % Basophils % 1 % Neutrophils # 9.0 H (1.3-7.7) k/uL Lymphocytes # 2.5 (1.0-4.8) k/uL Monocytes # 0.5 (0-1.0) k/uL Eosinophils # 0.3 (0-0.7) k/uL Basophils # 0.1 (0-0.2) k/uL Sodium 138 (137-145) mmol/L Potassium 4.2 (3.5-5.1) mmol/L Chloride 106 (98-107) mmol/L Carbon Dioxide 22 (22-30) mmol/L Anion Gap 10 mmol/L BUN 14 (7-17) mg/dL Creatinine 1.19 H (0.52-1.04) mg/dL Est GFR (CKD-EPI)AfAm 54 (>60 ml/min/1.73 sqM) Est GFR (CKD-EPI)NonAf 47 (>60 ml/min/1.73 sqM) Glucose 140 H (74-99) mg/dL Calcium 9.4 (8.4-10.2) mg/dL Total Bilirubin 0.4 (0.2-1.3) mg/dL AST 33 (14-36) U/L ALT 30 (4-34) U/L Alkaline Phosphatase 162 H (38-126) U/L Total Protein 7.4 (6.3-8.2) g/dL Albumin 4.4 (3.5-5.0) g/dL Urine Color Yellow Urine Appearance Cloudy H (Clear) Urine pH 5.5 (5.0-8.0) Ur Specific [place] 1.018 (1.001-1.035) Urine Protein Trace H (Negative) Urine Glucose (UA) Negative (Negative) Urine Ketones Negative (Negative) Urine Blood Large H (Negative) Urine Nitrite Negative (Negative) Urine Bilirubin Negative (Negative) Urine Urobilinogen <2.0 (<2.0) mg/dL Ur Leukocyte Esterase Large H (Negative) Urine RBC 129 H (0-5) /hpf Urine WBC 165 H (0-5) /hpf Urine WBC Clumps Few H (None) /hpf Ur Squamous Epith Cells 1 (0-4) /hpf Urine Bacteria Rare H (None) /hpf Urine Mucus Rare H (None) /hpf - Radiology Data Radiology results: report reviewed CT of the abdomen and pelvis without IV contrast was obtained. Impression per Dr. Vallecillo includes 7 mm calculus at the right UPJ which caused mild hydron ephrosis. Additional nonobstructing calculi within the left kidney. Disposition Clinical Impression: Ureteral calculus, right, UTI (urinary tract infection) Disposition: HOME SELF-CARE Condition: Good Instructions (If sedation given, give patient instructions): Kidney Stones (ED), Urinary Tract Infection in Women (ED), How to Strain Your Urine (ED) Additional Instructions: Follow-up with your primary care doctor for recheck in the next 1-2 days. It is also important to schedule an appointment with your urologist for further evaluation and treatment of the kidney stone. Complete the full course of antibiotic to treat the urinary tract infection. Take Flomax daily. Use pain medication and nausea medicine as needed. Strain your urine with each void. Return to the emergency department with any new, worsening, or concerning sy mptoms. Prescriptions: Tamsulosin HCl [Flomax] 0.4 mg PO DAILY #7 cap Cephalexin [Keflex] 500 mg PO Q6HR #40 cap Ondansetron [Zofran ODT] 4 mg PO Q8HR PRN #10 tab PRN Reason: Nausea Is patient prescribed a controlled substance at d/c from ED?: No Referrals: Richard Tinoco MD [Primary Care Provider] - 1-2 days Hiram Cevallos MD [STAFF PHYSICIAN] - 1-2 days Time of Disposition: 01:08
[2020-10-13 02:10] VITALS: BP 146/68; PULSE 98; TEMP 98.6
== END 2020-10-13 01:40 | disposition home or self-care (01) ==
LOC: EC 21:53
DX: N39.0 Urinary tract infection, site not specified (principal); N13.2 Hydronephrosis with renal and ureteral calculous obstruction; I10 Essential (primary) hypertension; J45.909 Unspecified asthma, uncomplicated; E78.5 Hyperlipidemia, unspecified; K21.9 Gastro-esophageal reflux disease without esophagitis; I25.10 Atherosclerotic heart disease of native coronary artery without angina pectoris; H40.9 Unspecified glaucoma; G47.30 Sleep apnea, unspecified; I25.2 Old myocardial infarction; Z79.1 Long term (current) use of non-steroidal anti-inflammatories (NSAID); Z79.899 Other long term (current) drug therapy; Z79.890 Hormone replacement therapy; Z79.02 Long term (current) use of antithrombotics/antiplatelets; Z88.5 Allergy status to narcotic agent; Z88.1 Allergy status to other antibiotic agents; Z86.73 Personal history of transient ischemic attack (TIA), and cerebral infarction without residual deficits; Z99.89 Dependence on other enabling machines and devices; Z87.442 Personal history of urinary calculi; Z96.651 Presence of right artificial knee joint
CPT/HCPCS: 36415; 80053; 85025; 81001; 87086; 74176; 99284; 96374; 96375 ×3; 96376; 96361; J2405; J0696; J1885; S0119; J1170

== ENCOUNTER 2020-10-21 18:05 | Emergency (ER) | payer MEDICARE, OTHER ==
[2020-10-21 18:25] VITALS: BP 132/74; PULSE 81; RESP 16; TEMP 98.3
--- NOTE | 2020-10-21 19:08 | ED ---
Upper Extremity HPI - General Chief Complaint: Extremity Injury, Upper Stated Complaint: L Wrist Injury Time Seen by Provider: 10/21/20 18:28 Source: patient Mode of arrival: ambulatory Limitations: no limitations - History of Present Illness Initial Comments: 70-year-old female patient presents to the emergency department today for evaluation of left hand injury. Patient states on 6:00 this evening she tripped and fell backwards. She believes she hit her hand on the stove. She is reporting pain to the wrist and hand. Patient does not believe she hit her head. She denies any headache, blurred vision, double vision, nausea, or vomiting. Denies any neck or back pain. She does admit to taking clopidogrel. She denies any other injuries or pain. Patient denies any chest pain, shortness of breath, dizziness, weakness, abdominal pain, nausea, vomiting, or difficulties with bowel movements or urination. - Related Data Home Medications Medication Instructions Recorded Confirmed Clopidogrel Bisulfate [Clopidogrel] 75 mg PO DAILY 06/10/14 04/25/20 Isosorbide Dinitrate 30 mg PO DAILY 06/10/14 04/25/20 Meloxicam 7.5 mg PO DAILY 06/10/14 04/25/20 Montelukast [Singulair] 10 mg PO DAILY 10/01/15 04/25/20 Diltiazem HCl [Diltiazem HCl 24Hr 360 mg PO HS 04/07/16 04/25/20 ER] Timolol 0.5% Ophth Soln [Timoptic 1 drop BOTH EYES BID 04/07/16 04/25/20 0.5% Ophth Soln] Amitriptyline HCl 50 mg PO BID 01/29/19 04/25/20 Ergocalciferol [Vitamin D2 50,000 unit PO SA 01/29/19 04/25/20 (DRISDOL)] lisinopriL [Zestril] 2.5 mg PO DAILY 01/29/19 04/25/20 Levothyroxine Sodium [Synthroid] 50 mcg PO DAILY 02/07/19 04/25/20 Atorvastatin [Lipitor] 20 mg PO HS 04/23/20 04/25/20 Brimonidine Tartrate [Alphagan P 1 drops BOTH EYES BID 04/23/20 04/25/20 0.2% Ophth Soln] L.acidoph,Paracasei, B.lactis 1 each PO DAILY 04/23/20 04/25/20 [Probiotic] Pantoprazole [Protonix] 40 mg PO HS 04/23/20 04/25/20 Previous Rx's Medication Instructions Recorded HYDROcodone/APAP 10-325MG [[place] 1 each PO Q6H PRN tab 04/26/20 10-325] HYDROcodone/APAP 7.5-325MG [[place] 1 - 2 tab PO Q6HR PRN 7 Days #42 04/26/20 7.5-325] tab Temazepam [Restoril] 15 mg PO HS PRN cap 04/26/20 Cephalexin [Keflex] 500 mg PO Q6HR #40 cap 10/13/20 Ondansetron [Zofran ODT] 4 mg PO Q8HR PRN #10 tab 10/13/20 Tamsulosin HCl [Flomax] 0.4 mg PO DAILY #7 cap 10/13/20 Allergies Allergy/AdvReac Type Severity Reaction Status Date / Time codeine Allergy Nausea & Verified 10/21/20 18:25 Vomiting & Diarrhea levofloxacin [From Levaquin] Allergy Rapid Verified 10/21/20 18:25 Heart Rate Review of Systems ROS Statement: Those systems with pertinent positive or pertinent negative responses have been documented in the HPI. ROS Other: All systems not noted in ROS Statement are negative. Past Medical History Past Medical History: Asthma, Coronary Artery Disease (CAD), CVA/TIA, Eye Disorder, GERD/Reflux, Hyperlipidemia, Hypertension, Myocardial Infarction ([place]), Musculoskeletal Disorder, Sleep Apnea/CPAP/BIPAP Additional Past Medical History / Comment(s): GLAUCOMA JOSE ALFREDO. EYES- GLASSES DAILY USE, IGA RESPONSE TRIGGERS ASTHMA, TRIGGER FINGER, LUMBAR DDD, TIA 2012- NO RESIDUAL, USES C-PAP Last Myocardial Infarction Date:: 09/2005 History of Any Multi-Drug Resistant Organisms: None Reported Past Surgical History: Joint Replacement, Orthopedic Surgery Additional Past Surgical History / Comment(s): LT KNEE ARTHROSCOPY. LT CTR. HX KIDNEY STONE REMOVAL 10/2012, JOSE ALFREDO LASER EYE SURG. PAIN CLINIC PROCEDURES, BREAST BX LT BREAST, right knee replacement, lithotripsy Past Anesthesia/Blood Transfusion Reactions: No Reported Reaction Past Psychological History: No Psychological Hx Reported Smoking Status: Never smoker Past Alcohol Use History: None Reported Past Drug Use History: None Reported - Past Family History Mother Family Medical History: Cancer, Hypertension Additional Family Medical History / Comment(s): FROM THYROID CA, Father Family Medical History: Cancer Additional Family Medical History / Comment(s): FROM STOMACH CA, HX ALCOHOLISM General Exam Limitations: no limitations General appearance: alert, in no apparent distress, other (This is a well- developed, well-nourished adult female patient in no acute distress. Vital signs upon presentation are temperature 98.3F, pulse 81, respirations 16, blood pressure 132/74, pulse ox 95% on room air.) Head exam: Present: atraumatic, normocephalic, normal inspection Eye exam: Present: normal appearance, PERRL, EOMI. Absent: scleral icterus, conjunctival injection, periorbital swelling ENT exam: Present: normal exam, normal oropharynx, mucous membranes moist Neck exam: Present: normal inspection, full ROM, other (Nontender, no step-off, no deformity to firm midline palpation of the posterior cervical spine. Full range of motion without pain or limitation.). Absent: tenderness, meningismus, lymphadenopathy Respiratory exam: Present: normal lung sounds bilaterally. Absent: respiratory distress, wheezes, rales, rhonchi, stridor Cardiovascular Exam: Present: regular rate, normal rhythm, normal heart sounds. Absent: systolic murmur, diastolic murmur, rubs, gallop, clicks Back exam: Present: normal inspection, other (Nontender, no step-off, no deformity to firm midline palpation of the thoracic and lumbar vertebrae. Full range of motion without pain or limitation.). Absent: vertebral tenderness Neurological exam: Present: alert, oriented X3, CN II-XII intact Psychiatric exam: Present: normal affect, normal mood Skin exam: Present: warm, dry, intact, normal color. Absent: rash Course Vital Signs 10/21/20 18:22 Temperature 98.3 F Pulse Rate 81 Respiratory 16 Rate Blood Pressure 132/74 O2 Sat by Pulse 95 Oximetry Medical Decision Making - Medical Decision Making 70-year-old female patient presented to the emergency department today for evaluation of left hand injury. Physical examination did reveal soft tissue swelling and contusion to the left dorsal hand. No anatomical snuffbox tenderness. Neurovascular status is intact. Patient does take Plavix. She is unsure she had her head. I did recommend computed tomography scan to rule out any injury, she declined. X-rays of the hand were negative. X-rays of the wrist were negative. We did place Steve wrap for comfort and support. She'll be discharged. The primary care physician for recheck in 1-2 days. Return parameters were discussed in detail. She verbalizes understanding and agrees with this plan. - Radiology Data Radiology results: report reviewed, image reviewed 3 views of the left hand are obtained. Report was reviewed in its entirety. Impression by Dr. Verma shows no acute bony abdomen abnormality. 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 4 views of the left wrist are obtained. Report is reviewed in its entirety. Im pression by Dr. Verma shows negative left wrist exam. Disposition Clinical Impression: Sprain of left hand, Contusion of left hand Disposition: HOME SELF-CARE Condition: Good Instructions (If sedation given, give patient instructions): Contusion in Adults (ED), Hand Sprain (ED) Additional Instructions: Rest, ice, elevate left hand. Wear Steve wrap for comfort and support. Follow up with your primary care physician for recheck in 1-2 days. Return to the emergency department for any new, worsening, or concerning symptoms. Is patient prescribed a controlled substance at d/c from ED?: No Referrals: Richard Tinoco MD [Primary Care Provider] - 1-2 days Time of Disposition: 19:49
--- NOTE | 2020-10-21 19:37 | XR ---
EXAMINATION TYPE: XR wrist complete LT DATE OF EXAM: 10/21/2020 COMPARISON: NONE HISTORY: Pain TECHNIQUE: 4 views FINDINGS: I see no fracture nor dislocation. Joint spaces are normal. There are no pathologic calcifi cations. IMPRESSION: Negative left wrist exam.
--- NOTE | 2020-10-21 19:39 | XR ---
EXAMINATION TYPE: XR hand complete LT DATE OF EXAM: 10/21/2020 COMPARISON: 12/25/2009 HISTORY: Pain. Fall and injury. TECHNIQUE: 3 views FINDINGS: The metacarpals are intact. There is soft tissue swelling around the hand. The fingers appe ar intact. There is moderately severe osteoarthritis at the IP joint of the thumb. IMPRESSION: No acute bony abnormality. 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
== END 2020-10-21 20:06 | disposition home or self-care (01) ==
LOC: EC 18:05
DX: S63.92XA Sprain of unspecified part of left wrist and hand, initial encounter (principal); I10 Essential (primary) hypertension; J45.909 Unspecified asthma, uncomplicated; I25.10 Atherosclerotic heart disease of native coronary artery without angina pectoris; E78.5 Hyperlipidemia, unspecified; H40.9 Unspecified glaucoma; K21.9 Gastro-esophageal reflux disease without esophagitis; G47.30 Sleep apnea, unspecified; I25.2 Old myocardial infarction; Z79.890 Hormone replacement therapy; Z79.1 Long term (current) use of non-steroidal anti-inflammatories (NSAID); Z79.02 Long term (current) use of antithrombotics/antiplatelets; Z88.5 Allergy status to narcotic agent; Z88.1 Allergy status to other antibiotic agents; Z79.899 Other long term (current) drug therapy; Z99.89 Dependence on other enabling machines and devices; Z86.73 Personal history of transient ischemic attack (TIA), and cerebral infarction without residual deficits; Z96.651 Presence of right artificial knee joint; Z87.442 Personal history of urinary calculi; W01.0XXA Fall on same level from slipping, tripping and stumbling without subsequent striking against object, initial encounter; Y92.000 Kitchen of unspecified non-institutional (private) residence as the place of occurrence of the external cause
CPT/HCPCS: 99283

== ENCOUNTER → 2020-10-30 | Outpatient (CLI) | payer MEDICARE, OTHER ==
[2020-10-30 07:57] LABS: Basophils # (A) 0.1 k/uL (0-0.2); Basophils % (A) 1 %; Eosinophils # (A) 0.3 k/uL (0-0.7); Eosinophils % (A) 3 %; HCT 40.7 % (34.0-46.0); HGB 13.4 gm/dL (11.4-16.0); Lymphocytes # (A) 2.5 k/uL (1.0-4.8); Lymphocytes % (A) 26 %; MCHC 32.9 g/dL (31.0-37.0); MCV 87.9 fL (80.0-100.0); Mean Platelet Volume 8.2; Monocytes # (A) 0.4 k/uL (0-1.0); Monocytes % (A) 4 %; Neutrophils # (A) 6.2 k/uL (1.3-7.7); Neutrophils % (A) 65 %; Platelet Count 258 k/uL (150-450); RBC 4.63 m/uL (3.80-5.40); RDW 13.5 % (11.5-15.5); WBC 9.6 k/uL (3.8-10.6)
[2020-10-30 11:46] LABS: African American GFR (CKD) 66.6 (60.0-200.0); Albumin 4.7 g/dL (3.80-4.90); Albumin/Globulin Ratio 2.14 (1.60-3.17); Anion Gap 8.4 mmol/L (4.00-12.00); Calcium 9.6 mg/dL (8.7-10.3); Carbon Dioxide 26.6 mmol/L (21.6-31.8); Chol/HDL Ratio 3.13; Globulin 2.2 g/dL (1.6-3.3); LDL Cholesterol,Calculated 55.2 mg/dL (0.0-131.0); Non-African American GFR(CKD) 57.4 (60.0-200.0); Potassium 4.7 mmol/L (3.5-5.5); Total Bilirubin 0.4 mg/dL (0.3-1.2); Total Protein 6.9 g/dL (6.2-8.2); VLDL Calculation 25.8 mg/dL (5.00-40.00)
== END | disposition home or self-care (01) ==
LOC: LABWHC1 07:21
PROVIDERS: ATTEND Family Medicine
DX: Z00.00 Encounter for general adult medical examination without abnormal findings (principal); E03.9 Hypothyroidism, unspecified; E78.00 Pure hypercholesterolemia, unspecified; E55.9 Vitamin D deficiency, unspecified; I10 Essential (primary) hypertension
CPT/HCPCS: 36415; 80053; 80061; 82306; 84439; 84443; 85025

== ENCOUNTER → 2020-11-17 | Outpatient (CLI) | payer MEDICARE, OTHER ==
--- NOTE | 2020-11-18 14:54 | BD ---
EXAMINATION TYPE: Axial Bone Density DATE OF EXAM: 11/17/2020 COMPARISON: NONE CLINICAL HISTORY: N 95.1, Z 79.899 Height: 59 Weight: 164.1 FRAX RISK QUESTIONS: Alcohol (3 or more units per day): no Family History (Parent hip fracture): no Glucocorticoids (More than 3mos): no (Ex: prednisone, prednisolone, methylprednisolone, dexamethasone, and hydrocortisone). History of Fracture in Adulthood: yes Secondary Osteoporosis: 1. Type 1 Diabetes: no 2. Hyperthyroidism: no 3. Menopause before 45: yes 4. Malnutrition: no 5. Chronic liver disease: no Rheumatoid Arthritis: no Current Tobacco Use: no RISK FACTORS HISTORY OF: History of Wrist Fracture: left When: 4 weeks ago Surgery to Spine/Hip(right/left)/Wrist (right/left): lumbar fusion When: 4 years ago Family History of Osteoporosis: no Active: yes Diet low in dairy products/other sources of calcium: yes Postmenopausal woman: age 40 Lost more than 2 inches in height since high school: no MEDICATIONS: metformin, complete list scanned into pacs Thyroid Medications: levothyroxine How Lon-8 months Additional History: EXAM MEASUREMENTS: Bone mineral densitometry was performed using the [employer] System. Bone mineral density about the R hip (g/cm2): 0.687 Bone mineral density about the L hip (g/cm2): 0.738 T Score values are as follows: -----R Neck: -2.5 -----L Neck: -2.2 -----R Total: -1.4 -----L Total: -0.9 Bone mineral density has: decreased -0.1 % since study of: . Bone mineral density about the R Wrist (g/cm2): 0.641 T Score values are as follows: -----Dist. R+U: -0.4 -----Prox. R+U: -1.0 -----Radius total: -0.5 Bone mineral density : baseline IMPRESSION: Osteopenia (T Score between -2.5 and -1). There is slightly increased risk of fracture and the patient may be considered for treatment. Re-Screen 2-5 years. NOTE: T-SCORE=SD OF THE YOUNG ADULT MEAN.
== END | disposition home or self-care (01) ==
LOC: RADBDWWP 15:08
PROVIDERS: ATTEND Family Medicine
DX: M85.80 Other specified disorders of bone density and structure, unspecified site (principal); Z79.899 Other long term (current) drug therapy
CPT/HCPCS: 77080

== ENCOUNTER → 2020-11-18 | Outpatient (CLI) | payer MEDICARE, OTHER ==
--- NOTE | 2020-11-19 11:25 | MM ---
Reason for exam: screening (asymptomatic). Last mammogram was performed 1 year ago. History: Patient is postmenopausal and has history of high-risk lesion on a previous biopsy at age 53. High risk stereotactic core biopsy of the left breast, April 25, 2003. Benign excisional biopsy of the left breast, 2002. Benign stereotactic core biopsy of the left breast, May 06, 2000. Took hormonal contraceptives for 4 years beginning at age 22. Took estrogen for 12 years beginning at age 36. Took progesterone for 12 years beginning at age 36. Physical Findings: A clinical breast exam by your physician is recommended on an annual basis and results should be correlated with mammographic findings. MG 3D Screening Mammo W/Cad Bilateral CC, MLO, and XCCL view(s) were taken. Prior study comparison: November 16, 2019, bilateral MG 3d screening mammo w/cad. October 24, 2018, bilateral MG 3d screening mammo w/cad. There are scattered fibroglandular densities. No significant changes when compared with prior studies. ASSESSMENT: Benign, BI-RAD 2 RECOMMENDATION: Routine screening mammogram of both breasts in 1 year.
== END | disposition home or self-care (01) ==
LOC: RADMAMWWP 08:54
PROVIDERS: ATTEND Surgery
DX: Z12.31 Encounter for screening mammogram for malignant neoplasm of breast (principal)
CPT/HCPCS: 77063; 77067

== ENCOUNTER → 2020-12-11 | Outpatient (CLI) | payer MEDICARE, OTHER ==
[2020-12-11 08:46] VITALS: BP 127/71; PULSE 91; RESP 18; TEMP 97.9
--- NOTE | 2020-12-11 09:01 | P.PN ---
Subjective Progress Note Date: 12/11/20 Principal diagnosis: fibrocystic breast changes The patient is a 70-year-old white female who comes for breast examination. At this time she has no complaints related to her breast. She has no masses in her breasts. No nipple discharge or skin changes. She has no recent history of any trauma or infection of the breast. Her last bilateral mammogram was 11-18-20, this was benign BIRAD 2. Caffeine: 2 cups of coffee per day Nicotine: Negative Chocolate: Negative Hormones: Negative Family History: mother: thyroid cancer father: stomach cancer Hormonal History: menarche: 17 : 2, 2 children, breast fed: one, first at 27 menopause: hysterectomy at 41, cyst on ovaries, took both ovaries as well BCP: 8 years hormones: 10 years, estrogen Past Surgical History: 1. hysterectomy and bilateral oophrectomy 2. spinal fusion 3. appy 4. gallbladder 5. ankle fusion 6. breast biopsy 7. bladder surgery 8. heart cath 9. left total knee replacement 10. kidney stone/ lithotripsy 11. right total knee replacement 12. cataract surgery Past Medical History: 1. hypothyroid 2. HTN 3. HINI flu in hospital 4. diabetic/ on metformin Social History smoke: none alcohol; none drugs: none - Constitutional Constitutional: Denies chills, Denies fever - EENT Comment: wears glasses, vitreous fluid in the right eye with floaters Eyes: bilateral cataract surgery Ears: deny: decreased hearing, tinnitus Ears, nose, mouth and throat: Denies headache, Denies sore throat - Breasts Breasts: bilateral: as per HPI - Cardiovascular Cardiovascular: Denies chest pain, Denies shortness of breath - Respiratory Respiratory: Denies cough, - Gastrointestinal Gastrointestinal: Denies abdominal pain, Denies diarrhea, Denies nausea, Denies vomiting - Genitourinary (Female) Genitourinary: Reports kidney stones - Menstruation Menstruation: Reports post hysterectomy - Musculoskeletal Comment: arthritis - Integumentary Integumentary: Denies pruritus, Denies rash - Neurological Comment: ? TIA in the past Neurological: Denies numbness, Denies weakness - Psychiatric Psychiatric: Denies anxiety, Denies depression - Endocrine Comment: hypothyroid Endocrine: Denies fatigue, Denies weight change - Hematologic/Lymphatic Comment: plavix - Allergic/Immunologic Comment: IGA deficiency more suspectiable to Upper resp infections Objective - Vital Signs Vital signs: Vital Signs Temp 97.9 F 12/11/20 08:43 Pulse 91 12/11/20 08:43 Resp 18 12/11/20 08:43 BP 127/71 12/11/20 08:43 Pulse Ox 94 L 12/11/20 08:43 Intake & Output 12/10/20 12/11/20 12/11/20 18:59 06:59 18:59 Weight 74.389 kg - Exam BMI 33.1 - Constitutional General appearance: Present: average body habitus - EENT Eyes: Present: EOMI ENT: Present: hearing grossly normal - Neck Neck: Present: normal ROM - Respiratory Respiratory: bilateral: CTA - Cardiovascular Rhythm: regular Heart sounds: normal: S1, S2 - Gastrointestinal General gastrointestinal: Present: normal bowel sounds, soft - Integumentary Integumentary: Present: normal turgor - Musculoskeletal Musculoskeletal: Present: gait normal - Psychiatric Psychiatric: Present: A&O x's 3, appropriate affect, intact judgment & insight - Additional findings Additional findings: breast exam: BRA 38C inspection: left breast smaller than right breast, grade 2 ptosis bilateral palpation: Right breast: Multi-positional exam fibrocystic changes, no dominant masses or nodules of concern Right axilla: No adenopathy of concern Left breast: Multi-positional exam fibrocystic changes no dominant masses or nodules of concern Left axilla: No adenopathy of concern Assessment and Plan Assessment: Impression: 1. fibrocystic breast changes lateral 2. Hypothyroid 3. Hypertension Plan: 1. Continue to keep decreased caffeine 2. Follow-up bilateral mammogram in 1 year 3. Come in sooner if any questions of concern CC: Dr. Tinoco encounter 15 minutes, > 50% of time in planning and counselling
== END | disposition home or self-care (01) ==
LOC: WWCWWP 08:33
PROVIDERS: ATTEND Surgery
DX: Z53.9 Procedure and treatment not carried out, unspecified reason (principal)

== ENCOUNTER → 2021-01-01 | Outpatient (CLI) | payer MEDICARE, OTHER ==
--- NOTE | 2021-01-01 15:19 | XR ---
EXAMINATION TYPE: XR hand complete LT DATE OF EXAM: 01/01/2021 COMPARISON: None HISTORY: Hand contusion TECHNIQUE: Three-view left hand FINDINGS: No acute displaced fractures are evident. Soft tissues appear normal. There is degenerative joint changes distal interphalangeal joint space of the thumb. Follow-up exams can be performed 7-10 days from acute trauma for continued pain. IMPRESSION: 1. No acute osseous abnormality. 2. Degenerative changes distal interphalangeal joint space left thumb
== END | disposition home or self-care (01) ==
LOC: RADXRMAIN 14:18
PROVIDERS: ATTEND Family Medicine
DX: M19.042 Primary osteoarthritis, left hand (principal); Z79.01 Long term (current) use of anticoagulants; Z87.81 Personal history of (healed) traumatic fracture

== ENCOUNTER → 2021-02-13 | Outpatient (CLI) | payer MEDICARE, OTHER ==
--- NOTE | 2021-02-13 10:28 | XR ---
EXAMINATION TYPE: XR lumbar spine 2 or 3V DATE OF EXAM: 02/13/2021 CLINICAL HISTORY: Fusion surgery with pain. TECHNIQUE: Frontal and lateral images of the lumbar spine are obtained. COMPARISON: Prior lumbar spine x-ray August 08, 2017 FINDINGS: There are 5 lumbar type vertebral bodies redemonstrated. Persistent posterior pedicular ro ds and screws transfixing L4-S1 levels. Grade 1 anterolisthesis L5 on S1 redemonstrated and stable. P ersistent moderate disc space narrowing L4-L5 level stable. New moderate disc space narrowing with en dplate sclerosis and vacuum disc phenomenon and moderate anterior spurring L2-L3 level. Mild disc spa ce narrowing L3-L4 level with some endplate sclerosis. Slight levoconvex scoliosis centered at L3 lev el remains present. Overlying cholecystectomy clips again seen. IMPRESSION: As above. New degenerative changes L2-L3 and L3-L4 level.
== END ==
LOC: RADXRMAIN 08:41
PROVIDERS: ATTEND Family Medicine
DX: M47.816 Spondylosis without myelopathy or radiculopathy, lumbar region (principal)
CPT/HCPCS: 72100

== ENCOUNTER → 2021-02-17 | Outpatient (CLI) | payer MEDICARE, OTHER ==
--- NOTE | 2021-02-17 14:17 | MR ---
EXAMINATION TYPE: MR lumbar spine wo/w con DATE OF EXAM: 02/17/2021 COMPARISON: HISTORY: LBP, RLE radiculopathy, hx surgery TECHNIQUE: Multiplanar, multisequence images of the lumbar spine were acquired utilizing [address] gadolinium contrast. Suspect L5 is sacralized. T12 thought to be nonrib-bearing. Using this numbering system patient is status post L3-L5 posterior fusion. Correlate with plain film prior to any surgical intervention. Ant erolisthesis grade 1 at L4-5, L3-4, L2-3. Retrolisthesis grade 1 L1-L2. There is susceptibility artif act due to patient's posterior fusion hardware. Loss of disc height signal present L5-S1, L4-5, L3-4, L2-3 and L1-2, there is associated vacuum phenomenon at multiple levels, multilevel spondylosis with endplate discogenic marrow signal change. There is a spinal curvature. L1-L2: Posterior broad-based disc herniation extends circumferentially causes bilateral foraminal enc roachment, is anterior mass effect on the thecal sac. Facet arthropathy with hypertrophy ligamentum f lavum causes some posterior lateral mass effect on the thecal sac, there is mild/moderate central sangeetha nosis. L2-L3: The listhesis contributes to cause some foraminal encroachment, there is facet arthropathy wit h hypertrophic changes causing some posterior lateral mass effect on the thecal sac, trefoil appearan ce of the thecal sac. L3-L4: Listhesis contributes cause bilateral foraminal encroachment, there is facet arthropathy vela e causing some posterior lateral mass effect on the thecal sac, trefoil appearance of the thecal sac is present with some reduction in the transverse dimension of the thecal sac. No evident disc herniat ion. L4-L5: Listhesis contributes to cause some foraminal encroachment, no significant stenosis or evident disc herniation L5-S1: Normal disc appearance without desiccation. No herniation, protrusion or disc bulging. No ca nal stenosis is present. Foramina are patent bilaterally. Conus medullaris has a normal appearance. Somewhat trabeculated appearance of the urinary bladder is questioned. No abnormal enhancement following contrast administration. IMPRESSION: Degenerative disc disease as described, numbering scheme as described, correlate with plain film prio r to any intervention. Multilevel foraminal encroachment is suspected.
== END | disposition home or self-care (01) ==
LOC: RADMRIMAIN 11:39
PROVIDERS: ATTEND Family Medicine
DX: M51.16 Intervertebral disc disorders with radiculopathy, lumbar region (principal); M47.26 Other spondylosis with radiculopathy, lumbar region; M48.061 Spinal stenosis, lumbar region without neurogenic claudication
CPT/HCPCS: 72158; A9585

== ENCOUNTER → 2021-03-04 | Outpatient (CLI) | payer MEDICARE, OTHER ==
[2021-03-04 11:16] LABS: African American GFR (CKD) 53.4 (60.0-200.0); Anion Gap 12.8 mmol/L (4.00-12.00); Calcium 9.5 mg/dL (8.7-10.3); Carbon Dioxide 22.2 mmol/L (21.6-31.8); Non-African American GFR(CKD) 46.1 (60.0-200.0)
== END | disposition home or self-care (01) ==
LOC: LABWHC1 07:12
PROVIDERS: ATTEND Family Medicine
DX: Z79.1 Long term (current) use of non-steroidal anti-inflammatories (NSAID) (principal)
CPT/HCPCS: 36415; 80048

== ENCOUNTER 2021-11-08 10:30 | Emergency (ER) | payer MEDICARE, OTHER ==
[2021-11-08 10:39] VITALS: RESP 18; TEMP 97.5
[2021-11-08] MEDS ORDERED: ORPHENADRINE 30 MG/ML 2 ML VIAL IM STA (11:18)
[2021-11-08] MEDS ORDERED: KETOROLAC 15 MG/ML 1 ML VIAL IM STA (11:18)
--- NOTE | 2021-11-08 11:25 | ED ---
General Adult HPI - General Chief complaint: Back Pain/Injury Stated complaint: back pain, no injury Time Seen by Provider: 11/08/21 10:54 Source: patient Mode of arrival: wheelchair Limitations: physical limitation - History of Present Illness Initial comments: 71-year-old female with a past medical history of asthma, GERD, hyperlipidemia, hypertension, chronic presents to the emergency room for back pain. Patient states for the past year or so she has had worsening back pain. Patient states she has been seeing Dr. Donovan for this. They tried steroid shots and were unsuccessful. She is trying to get another type of treatment that has to be improved by insurance. He states there are the past week the pain worsened a bit. She was seen and given Toradol by Dr. Donovan and it did help for the following few days. She called to try to get back and chest pain returned and he said to come to the ER because they could not fit her in. States she was told we would be able to help with her pain. Patient denies any bladder bowel changes, saddle anesthesia, weakness of the legs, or fevers or chills.Patient has no other complaints at this time including shortness of breath, chest pain, abdominal pain, nausea or vomiting, headache, or visual changes. - Related Data Home Medications Medication Instructions Recorded Confirmed Clopidogrel Bisulfate [Clopidogrel] 75 mg PO DAILY 06/10/14 12/11/20 Isosorbide Dinitrate 30 mg PO DAILY 06/10/14 12/11/20 Meloxicam 7.5 mg PO DAILY 06/10/14 12/11/20 Montelukast [Singulair] 10 mg PO DAILY 10/01/15 12/11/20 Diltiazem HCl [Diltiazem HCl 24Hr 360 mg PO HS 04/07/16 12/11/20 ER] Timolol 0.5% Ophth Soln [Timoptic 1 drop BOTH EYES BID 04/07/16 12/11/20 0.5% Ophth Soln] Amitriptyline HCl 50 mg PO BID 01/29/19 12/11/20 Ergocalciferol [Vitamin D2 50,000 unit PO SA 01/29/19 12/11/20 (DRISDOL)] lisinopriL [Zestril] 2.5 mg PO DAILY 01/29/19 12/11/20 Levothyroxine Sodium [Synthroid] 50 mcg PO DAILY 02/07/19 12/11/20 Atorvastatin [Lipitor] 20 mg PO HS 04/23/20 12/11/20 Brimonidine Tartrate [Alphagan P 1 drops BOTH EYES BID 04/23/20 12/11/20 0.2% Ophth Soln] Pantoprazole [Protonix] 40 mg PO HS 04/23/20 12/11/20 Allergies Allergy/AdvReac Type Severity Reaction Status Date / Time codeine Allergy Nausea & Verified 11/08/21 12:13 Vomiting & Diarrhea levofloxacin [From Levaquin] Allergy Rapid Verified 11/08/21 12:13 Heart Rate Review of Systems ROS Statement: Those systems with pertinent positive or pertinent negative responses have been documented in the HPI. ROS Other: All systems not noted in ROS Statement are negative. Past Medical History Past Medical History: Asthma, Coronary Artery Disease (CAD), CVA/TIA, Eye Disorder, GERD/Reflux, Hyperlipidemia, Hypertension, Myocardial Infarction ([place]), Musculoskeletal Disorder, Sleep Apnea/CPAP/BIPAP Additional Past Medical History / Comment(s): GLAUCOMA JOSE ALFREDO. EYES- GLASSES DAILY USE, IGA RESPONSE TRIGGERS ASTHMA, TRIGGER FINGER, LUMBAR DDD, TIA 2012- NO RESIDUAL, USES C-PAP Last Myocardial Infarction Date:: 09/2005 History of Any Multi-Drug Resistant Organisms: None Reported Past Surgical History: Joint Replacement, Orthopedic Surgery Additional Past Surgical History / Comment(s): LT KNEE ARTHROSCOPY. LT CTR. HX KIDNEY STONE REMOVAL 10/2012, JOSE ALFREDO LASER EYE SURG. PAIN CLINIC PROCEDURES, BREAST BX LT BREAST, right knee replacement, lithotripsy Past Anesthesia/Blood Transfusion Reactions: No Reported Reaction Past Psychological History: No Psychological Hx Reported Smoking Status: Never smoker Past Alcohol Use History: None Reported Past Drug Use History: None Reported - Past Family History Mother Family Medical History: Cancer, Hypertension Additional Family Medical History / Comment(s): FROM THYROID [place], Father Family Medical History: Cancer Additional Family Medical History / Comment(s): FROM STOMACH [place], HX ALCOHOLISM General Exam Limitations: physical limitation General appearance: alert, in no apparent distress Head exam: Present: atraumatic Eye exam: Present: normal appearance, PERRL, EOMI. Absent: scleral icterus, conjunctival injection ENT exam: Present: normal exam, mucous membranes moist Neck exam: Present: normal inspection, full ROM. Absent: tenderness Respiratory exam: Present: normal lung sounds bilaterally. Absent: respiratory distress, wheezes Cardiovascular Exam: Present: regular rate, normal rhythm, normal heart sounds GI/Abdominal exam: Present: soft, normal bowel sounds. Absent: distended, tenderness Extremities exam: Present: normal capillary refill (Capillary refill less than 2 seconds, DP pulse 2+ bilaterally), other (Sensation intact bilateral lower extremities. Strength 5 out of 5 BLE.) Back exam: Present: vertebral tenderness (Mild lower lumbar tenderness.) Neurological exam: Present: alert Course Vital Signs 11/08/21 11/08/21 10:36 11:40 Temperature 97.5 F L Pulse Rate 105 H 94 Respiratory 18 18 Rate Blood Pressure 149/66 142/72 O2 Sat by Pulse 96 96 Oximetry Medical Decision Making - Medical Decision Making Patient has had MRI showing degenerative disc disease in January. History of fusion 5 years ago Vitals are stable. Patient is well appearing. Patient does have chronic back pain. No focal neurologic deficits. No red flags. Given Toradol and Norflex and had complete resolution of symptoms. Patient can be discharged home with a some pain medication. She will follow up with Dr. Donovan tomorrow as her has an appointment and they will talk to him at that time. They will also follow up with primary care. They will return for any worsening symptoms. Disposition Clinical Impression: Acute exacerbation of chronic low back pain Disposition: HOME SELF-CARE Condition: Good Instructions (If sedation given, give patient instructions): Acute Low Back Pain (ED) Additional Instructions: Please follow up with primary care in 1-2 days. Follow up with Dr Donovan as well. Return to the emergency room for any worsening symptoms. Is patient prescribed a controlled substance at d/c from ED?: No Referrals: Richard Tinoco MD [Primary Care Provider] - 1-2 days Vito Donovan MD [Medical Doctor] - 1-2 days Time of Disposition: 12:18
[2021-11-08 11:52] VITALS: BP 142/72; PULSE 94
[2021-11-08] MEDS ORDERED: ACET/COD 300 MG/30 MG STARTER PACK 6 TAB BTL PO STA (12:16)
== END 2021-11-08 12:29 | disposition home or self-care (01) ==
LOC: EC 10:30
DX: M54.59 Other low back pain (principal); G89.29 Other chronic pain; J45.909 Unspecified asthma, uncomplicated; K21.9 Gastro-esophageal reflux disease without esophagitis; E78.5 Hyperlipidemia, unspecified; I10 Essential (primary) hypertension; I25.10 Atherosclerotic heart disease of native coronary artery without angina pectoris; I25.2 Old myocardial infarction; Z88.1 Allergy status to other antibiotic agents; Z88.5 Allergy status to narcotic agent; Z86.73 Personal history of transient ischemic attack (TIA), and cerebral infarction without residual deficits; Z96.652 Presence of left artificial knee joint
CPT/HCPCS: 99283; 96372 ×2; J2360; J1885

== ENCOUNTER → 2021-11-23 | Outpatient (CLI) | payer MEDICARE, OTHER ==
--- NOTE | 2021-11-24 14:59 | MM ---
Reason for exam: screening (asymptomatic). Last mammogram was performed 1 year ago. History: Patient is postmenopausal and has history of high-risk lesion on a previous biopsy at age 53. High risk stereotactic core biopsy of the left breast, April 25, 2003. Benign excisional biopsy of the left breast, 2002. Benign stereotactic core biopsy of the left breast, May 06, 2000. Took hormonal contraceptives for 4 years beginning at age 22. Took estrogen for 12 years beginning at age 36. Took progesterone for 12 years beginning at age 36. Physical Findings: A clinical breast exam by your physician is recommended on an annual basis and results should be correlated with mammographic findings. MG 3D Screening Mammo W/Cad Bilateral CC and MLO view(s) were taken. Prior study comparison: November 18, 2020, bilateral MG 3d screening mammo w/cad. November 16, 2019, bilateral MG 3d screening mammo w/cad. There are scattered fibroglandular densities. Previous mammotome biopsy in the left breast. Post excisional changes redemonstrate upper outer quadrant left breast. Stable moles. No significant changes when compared with prior studies. ASSESSMENT: Benign, BI-RAD 2 RECOMMENDATION: Routine screening mammogram of both breasts in 1 year.
== END | disposition home or self-care (01) ==
LOC: RADMAMWWP 07:48
PROVIDERS: ATTEND Surgery
DX: Z12.31 Encounter for screening mammogram for malignant neoplasm of breast (principal); Z78.0 Asymptomatic menopausal state
CPT/HCPCS: 77063; 77067

== ENCOUNTER → 2021-12-11 | Outpatient (CLI) | payer MEDICARE, OTHER ==
[2021-12-11 09:42] VITALS: BP 130/72; PULSE 89; RESP 17; TEMP 98.3
--- NOTE | 2021-12-11 10:02 | P.PN ---
Subjective Progress Note Date: 12/11/21 Principal diagnosis: fibrocystic breast disease fibrocystic breast changes The patient is a 71-year-old white female who comes for breast examination. At this time she has no complaints related to her breast. She has no masses in her breasts. No nipple discharge or skin changes. She has no recent history of any trauma or infection of the breast. He has not complained of any new lumps masses or nodules in her breast. Her last bilateral mammogram was 11-23-21, this was benign BIRAD 2. Caffeine: 2 cups of coffee per day Nicotine: Negative Chocolate: Negative Hormones: Negative Family History: mother: thyroid cancer father: stomach cancer Hormonal History: menarche: 17 : 2, 2 children, breast fed: one, first at 27 menopause: hysterectomy at 41, cyst on ovaries, took both ovaries as well BCP: 8 years hormones: 10 years, estrogen Past Surgical History: 1. hysterectomy and bilateral oophrectomy 2. spinal fusion 3. appy 4. gallbladder 5. ankle fusion 6. breast biopsy 7. bladder surgery 8. heart cath 9. left total knee replacement 10. kidney stone/ lithotripsy 11. right total knee replacement 12. cataract surgery Past Medical History: 1. hypothyroid 2. HTN 3. HINI flu in hospital 4. diabetic/ on metformin 5. back pain/ sciatica Social History smoke: none alcohol; none drugs: none Objective - Vital Signs Vital signs: Vital Signs Temp 98.3 F 12/11/21 09:38 Pulse 89 12/11/21 09:38 Resp 17 12/11/21 09:38 BP 130/72 12/11/21 09:38 Pulse Ox Intake & Output 12/10/21 12/11/21 12/11/21 18:59 06:59 18:59 Weight 75.75 kg - Exam BMI 33.7 - Constitutional General appearance: Present: cooperative - EENT Eyes: Present: EOMI ENT: Present: hearing grossly normal - Neck Neck: Present: normal ROM - Respiratory Respiratory: bilateral: CTA - Cardiovascular Rhythm: regular Heart sounds: normal: S1, S2 - Gastrointestinal General gastrointestinal: Present: soft - Integumentary Integumentary: Present: normal turgor - Musculoskeletal Musculoskeletal: Present: gait normal - Psychiatric Psychiatric: Present: A&O x's 3, appropriate affect, intact judgment & insight - Additional findings Additional findings: Breast Exam: BRA: 38C inspection: bilateral grade 3 ptosis palpation: right breast: multi positional exam fibrocystic changes no discrete dominant masses or nodules of concern Right axilla: No adenopathy of concern Left breast: Multi-positional exam fibrocystic changes no discrete dominant masses or nodules of concern Left axilla: No adenopathy of concern Assessment and Plan Assessment: Impression: 1. hypothyroid 2. HTN 3. HINI flu in hospital 3 years ago 4. diabetic/ on metformin 5. back pain/ sciatica 6. Fibrocystic breast changes 7. Recent bilateral mammogram benign BIRADS 2 done in October 2021 Plan: 1. Repeat bilateral mammogram in 1 year with physician exam at that time 2. Questions or concerns patient to follow up sooner CC: Dr. Tinoco
== END ==
LOC: WWCWWP 09:27
PROVIDERS: ATTEND Surgery
DX: N60.11 Diffuse cystic mastopathy of right breast (principal); N60.12 Diffuse cystic mastopathy of left breast; E03.9 Hypothyroidism, unspecified; I10 Essential (primary) hypertension; E11.9 Type 2 diabetes mellitus without complications; M54.30 Sciatica, unspecified side; J10.1 Influenza due to other identified influenza virus with other respiratory manifestations; Z79.84 Long term (current) use of oral hypoglycemic drugs; Z88.5 Allergy status to narcotic agent; Z88.1 Allergy status to other antibiotic agents

== ENCOUNTER 2021-12-14 17:42 | Emergency (ER) | payer MEDICARE, OTHER ==
[2021-12-14 18:47] VITALS: BP 149/79; PULSE 97; RESP 20; TEMP 97.7
[2021-12-14] MEDS ORDERED: predniSONE 20 MG TAB PO STA (20:54)
[2021-12-14] MEDS ORDERED: KETOROLAC 15 MG/ML 1 ML VIAL IM STA (20:54)
--- NOTE | 2021-12-14 22:13 | ED ---
Back Pain HPI - General Chief Complaint: Back Pain/Injury Stated Complaint: Back Pain Source: patient Limitations: no limitations - History of Present Illness Initial Comments: 71-year-old female past history of back pain, lumbar fusion, sciatica presents emergency department for an acute exacerbation of her back pain. She states that she was mopping and sweeping underneath her p.m. no today when she had sudden onset of worsening back pain. States that it is very typical of her chronic back pain for which she sees Dr. Donovan for. She has had lumbar fusion, multiple spinal injections. She is currently awaiting insurance approval for a new therapy. She is currently on Tylenol 3 however she states this does not help her pain. She had better relief when she took Motrin however Dr. Tinoco took her off of this medication as long-term use has been lead to kidney dysfunction. Patient denies any bowel or bladder incontinence. No saddle anesthesia. Continues to be able to ambulate without difficulty. No fevers. No other alleviating, precipitating mopping factors - Related Data Home Medications Medication Instructions Recorded Confirmed Clopidogrel Bisulfate [Clopidogrel] 75 mg PO DAILY 06/10/14 12/11/21 Meloxicam 7.5 mg PO 06/10/14 12/11/21 Montelukast [Singulair] 10 mg PO 10/01/15 12/11/21 Diltiazem HCl [Diltiazem HCl 24Hr 360 mg PO 04/07/16 12/11/21 ER] Amitriptyline HCl 50 mg PO BID 01/29/19 12/11/21 Ergocalciferol [Vitamin D2 50,000 unit PO 01/29/19 12/11/21 (DRISDOL)] lisinopriL [Zestril] 2.5 mg PO DAILY 01/29/19 12/11/21 Atorvastatin [Lipitor] 20 mg PO 04/23/20 12/11/21 Pantoprazole [Protonix] 40 mg PO DAILY 04/23/20 12/11/21 Isosorbide Mononitrate ER [Imdur] 30 mg PO DAILY 11/08/21 12/11/21 L.acidoph,Paracasei, B.lactis 1 cap PO DAILY 11/08/21 12/11/21 [Probiotic] Levothyroxine Sodium [Synthroid] 50 mcg PO DAILY 11/08/21 12/11/21 sitaGLIPtin [Januvia] 100 mg PO DAILY 11/08/21 12/11/21 Previous Rx's Medication Instructions Recorded HYDROcodone/APAP 7.5-325MG [Marydel 1 tab PO Q4H PRN 3 Days #18 tab 12/14/21 7.5-325] predniSONE [Deltasone] 20 mg PO BID #10 tab 12/14/21 Allergies Allergy/AdvReac Type Severity Reaction Status Date / Time codeine Allergy Nausea & Verified 12/14/21 18:44 Vomiting & Diarrhea levofloxacin [From Levaquin] Allergy Rapid Verified 12/14/21 18:44 Heart Rate Review of Systems ROS Statement: Those systems with pertinent positive or pertinent negative responses have been documented in the HPI. ROS Other: All systems not noted in ROS Statement are negative. Past Medical History Past Medical History: Asthma, Coronary Artery Disease (CAD), CVA/TIA, Eye Disorder, GERD/Reflux, Hyperlipidemia, Hypertension, Myocardial Infarction ([place]), Musculoskeletal Disorder, Sleep Apnea/CPAP/BIPAP Additional Past Medical History / Comment(s): GLAUCOMA JOSE ALFREDO. EYES- GLASSES DAILY USE, IGA RESPONSE TRIGGERS ASTHMA, TRIGGER FINGER, LUMBAR DDD, TIA 2012- NO RESIDUAL, USES C-PAP Last Myocardial Infarction Date:: 09/2005 History of Any Multi-Drug Resistant Organisms: None Reported Past Surgical History: Joint Replacement, Orthopedic Surgery Additional Past Surgical History / Comment(s): LT KNEE ARTHROSCOPY. LT CTR. HX KIDNEY STONE REMOVAL 10/2012, JOSE ALFREDO LASER EYE SURG. PAIN CLINIC PROCEDURES, BREAST BX LT BREAST, right knee replacement, lithotripsy Past Anesthesia/Blood Transfusion Reactions: No Reported Reaction Past Psychological History: No Psychological Hx Reported Smoking Status: Never smoker Past Alcohol Use History: None Reported Past Drug Use History: None Reported - Past Family History Mother Family Medical History: Cancer, Hypertension Additional Family Medical History / Comment(s): FROM THYROID [place], Father Family Medical History: Cancer Additional Family Medical History / Comment(s): FROM STOMACH [place], HX ALCOHOLISM General Exam Limitations: no limitations Course Vital Signs 12/14/21 18:44 Temperature 97.7 F Pulse Rate 97 Respiratory 20 Rate Blood Pressure 149/79 O2 Sat by Pulse 97 Oximetry Medical Decision Making - Medical Decision Making Upon arrival patient [place] [id number]. A thorough history and physical exam was performed. Patient is able to ambulate without difficulty. No signs of saddle anesthesia. States this is very typical of her chronic back pain. Usually has good relief with Toradol. Patient was given 60 mg of prednisone and a Toradol IM injection. She is reevaluated and has improvement in her symptoms. Ready for discharge home. Patient does have an appointment with Dr. Syed on January 18. Instructed to call and see if they have any closer appointments. She is to follow up with Dr. Donovan's office as well as her primary care physician for further treatment options. I will place her on another five-day course of steroids. Patient will be switched to Marydel this which she has tolerated before in the past. Side effect profile discussed. The patient has any new or worsening symptoms she should return to the emergency r oom. Patient agreed she was discharged home in stable condition Disposition Clinical Impression: Chronic back pain, Sciatica Disposition: HOME SELF-CARE Condition: Stable Instructions (If sedation given, give patient instructions): Acute Low Back Pain (ED) Additional Instructions: Please follow-up with Dr. Donovan for further treatment options. Call to see if there are any sooner appointments with Dr. Syed. Take the medications as directed and return for any new or worsening symptoms Prescriptions: predniSONE [Deltasone] 20 mg PO BID #10 tab HYDROcodone/APAP 7.5-325MG [Marydel 7.5-325] 1 tab PO Q4H PRN 3 Days #18 tab PRN Reason: Pain Is patient prescribed a controlled substance at d/c from ED?: Yes When asked, does pt state using other controlled substances?: Yes If prescribed controlled substance>3 days was MAPS reviewed?: Prescribed <3 Days If opioid is for acute pain is fill amount 7 days or less?: Yes If Rx opioid, was Start Talking consent form obtained?: Yes Referrals: Richard Tinoco MD [Primary Care Provider] - 1-2 days Amadeo Syed DO [Doctor of Osteopathic Medicine] - 1-2 days Time of Disposition: 22:13
== END 2021-12-14 22:21 | disposition home or self-care (01) ==
LOC: EC 17:42
DX: G89.29 Other chronic pain (principal); M54.40 Lumbago with sciatica, unspecified side; I10 Essential (primary) hypertension; I25.10 Atherosclerotic heart disease of native coronary artery without angina pectoris; J45.909 Unspecified asthma, uncomplicated; E78.5 Hyperlipidemia, unspecified; I25.2 Old myocardial infarction; K21.9 Gastro-esophageal reflux disease without esophagitis; Z79.1 Long term (current) use of non-steroidal anti-inflammatories (NSAID); Z79.84 Long term (current) use of oral hypoglycemic drugs; Z79.899 Other long term (current) drug therapy
CPT/HCPCS: 99283; 96372; J1885; J7512

== ENCOUNTER → 2021-12-14 | Outpatient (CLI) | payer MEDICARE, OTHER ==
[2021-12-14 11:20] LABS: Hepatitis C IgG Antibody Nonreactive (Nonreactive)
[2021-12-14 11:24] LABS: ALT 26 U/L (8-44); AST 35 U/L (13-35); African American GFR (CKD) 66.1 (60.0-200.0); Albumin 4.4 g/dL (3.8-4.9); Albumin/Globulin Ratio 1.83 (1.60-3.17); Alkaline Phosphatase 135 U/L (41-126); Blood Urea Nitrogen 9.1 mg/dL (9.0-27.0); Calcium 9.3 mg/dL (8.7-10.3); Carbon Dioxide 22.6 mmol/L (20.0-27.5); Chloride 106 mmol/L (96-109); Chol/HDL Ratio 2.73 Ratio; Globulin 2.4 g/dL (1.6-3.3); Glucose 138 mg/dL (70-110); LDL Cholesterol,Calculated 36.9 mg/dL (0.0-131.0); Potassium 4.7 mmol/L (3.5-5.5); Sodium 141 mmol/L (135-145); Total Protein 6.8 g/dL (6.2-8.2)
[2021-12-14 11:40] LABS: Basophils # (A) 0.08 X 10*3/uL (0.00-0.10); Basophils % (A) 1.1 %; Eosinophils # (A) 0.18 X 10*3/uL (0.04-0.35); Eosinophils % (A) 2.5 %; HCT 42.4 % (37.2-46.3); HGB 13.3 g/dL (12.0-15.0); Lymphocytes # (A) 1.75 X 10*3/uL (0.90-5.00); Lymphocytes % (A) 24.5 %; MCH 28.8 pg (27.0-32.0); MCHC 31.4 g/dL (32.0-37.0); MCV 91.8 fL (80.0-97.0); Mean Platelet Volume 10.9 fL (9.5-12.2); Monocytes # (A) 0.34 X 10*3/uL (0.20-1.00); Monocytes % (A) 4.8 %; Neutrophils # (A) 4.76 X 10*3/uL (1.80-7.70); Neutrophils % (A) 66.8 %; Platelet Count 287 X 10*3/uL (140-440); RBC 4.62 X 10*6/uL (4.10-5.20); RDW 12.6 % (11.5-14.5); WBC 7.13 X 10*3/uL (4.50-10.00)
== END | disposition home or self-care (01) ==
LOC: LABWHC1 07:24
PROVIDERS: ATTEND Internal Medicine Cardiovascular Disease
DX: Z00.00 Encounter for general adult medical examination without abnormal findings (principal); Z11.59 Encounter for screening for other viral diseases; I10 Essential (primary) hypertension; E11.9 Type 2 diabetes mellitus without complications; Z13.220 Encounter for screening for lipoid disorders
CPT/HCPCS: 36415; 80053; 80061; 84443; 85025; 86803; 87522

== ENCOUNTER 2022-01-09 07:23 | Emergency (ER) | payer MEDICARE, OTHER ==
[2022-01-09 07:31] VITALS: BP 131/69; PULSE 108; RESP 18; TEMP 97.9
[2022-01-09] MEDS ORDERED: HYDROmorphone 0.5 MG/0.5 ML SYRINGE IVP STA (07:42)
[2022-01-09] MEDS ORDERED: predniSONE 50 MG TAB PO STA (07:42)
[2022-01-09] MEDS ORDERED: KETOROLAC 15 MG/ML 1 ML VIAL IM STA (07:42)
--- NOTE | 2022-01-09 08:41 | XR ---
EXAMINATION TYPE: XR lumbar spine 2 or 3V DATE OF EXAM: 01/09/2022 8:25 AM INDICATION: Patient age:Female; 71 years old; Reason for study: Sciatica; COMPARISON: Spine radiographs 02/13/2021 TECHNIQUE: The lumbar spine was examined in 2 views. FINDINGS: No evidence of any acute osseous pathology. There is straightening of the alignment of the lumbar vertebral bodies. Fixation hardware noted in the lower lumbar spine and sacrum. Lucency aroun d the L5 pedicle screws is appreciated suggesting loosening. L2-L3 endplate sclerosis with disc space narrowing and osteophyte formation is present. Atherosclerosis of aorta is present. IMPRESSION: 1. Fixation changes to the lumbar spine with lucency around the L5 pedicle screws suggesting loosenin g, as seen on prior. 2. Multilevel disc degeneration most proximal L2-L3.
[2022-01-09] MEDS ORDERED: traMADol 50 MG STARTER PACK 3 TAB BTL PO STA (08:47)
--- NOTE | 2022-01-09 08:47 | ED ---
General Adult HPI - General Chief complaint: Back Pain/Injury Stated complaint: Lower Back Pain Time Seen by Provider: 01/09/22 07:25 Source: patient, family, RN notes reviewed, old records reviewed Mode of arrival: wheelchair Limitations: no limitations - History of Present Illness Initial comments: This is a 71-year-old female presents emergency Department with chronic lower back pain. Patient previous surgery to her lower back. Patient comes in stating that the pain is in her lower back and shooting down to the heel on her left leg. Patient states she has had this before she has an appointment with a back surgeon on Tuesday. Patient denies any numbness patient denies any weakness but it does hurt to move the leg. Patient denies any issues with urinary retention or incontinence. Patient denies any recent injury. Patient states she's on Borger home but it does not help. - Related Data Home Medications Medication Instructions Recorded Confirmed Clopidogrel Bisulfate [Clopidogrel] 75 mg PO DAILY 06/10/14 12/11/21 Meloxicam 7.5 mg PO HS 06/10/14 12/11/21 Montelukast [Singulair] 10 mg PO HS 10/01/15 12/11/21 Diltiazem HCl [Diltiazem HCl 24Hr 360 mg PO HS 04/07/16 12/11/21 ER] Amitriptyline HCl 50 mg PO BID 01/29/19 12/11/21 Ergocalciferol [Vitamin D2 50,000 unit PO SA 01/29/19 12/11/21 (DRISDOL)] lisinopriL [Zestril] 2.5 mg PO DAILY 01/29/19 12/11/21 Atorvastatin [Lipitor] 20 mg PO HS 04/23/20 12/11/21 Pantoprazole [Protonix] 40 mg PO DAILY 04/23/20 12/11/21 Isosorbide Mononitrate ER [Imdur] 30 mg PO DAILY 11/08/21 12/11/21 L.acidoph,Paracasei, B.lactis 1 cap PO DAILY 11/08/21 12/11/21 [Probiotic] Levothyroxine Sodium [Synthroid] 50 mcg PO DAILY 11/08/21 12/11/21 sitaGLIPtin [Januvia] 100 mg PO DAILY 11/08/21 12/11/21 Previous Rx's Medication Instructions Recorded HYDROcodone/APAP 7.5-325MG [[place] 1 tab PO Q4H PRN 3 Days #18 tab 12/14/21 7.5-325] predniSONE [Deltasone] 20 mg PO BID #10 tab 12/14/21 predniSONE [Deltasone] 40 mg PO DAILY #8 tab 01/09/22 Allergies Allergy/AdvReac Type Severity Reaction Status Date / Time codeine Allergy Nausea & Verified 01/09/22 07:30 Vomiting & Diarrhea levofloxacin [From Levaquin] Allergy Rapid Verified 01/09/22 07:30 Heart Rate Review of Systems ROS Statement: Those systems with pertinent positive or pertinent negative responses have been documented in the HPI. ROS Other: All systems not noted in ROS Statement are negative. Past Medical History Past Medical History: Asthma, Coronary Artery Disease (CAD), CVA/TIA, Eye Disorder, GERD/Reflux, Hyperlipidemia, Hypertension, Myocardial Infarction ([place]), Musculoskeletal Disorder, Sleep Apnea/CPAP/BIPAP Additional Past Medical History / Comment(s): GLAUCOMA JOSE ALFREDO. EYES- GLASSES DAILY USE, IGA RESPONSE TRIGGERS ASTHMA, TRIGGER FINGER, LUMBAR DDD, TIA 2012- NO RESIDUAL, USES C-PAP Last Myocardial Infarction Date:: 09/2005 History of Any Multi-Drug Resistant Organisms: None Reported Past Surgical History: Joint Replacement, Orthopedic Surgery Additional Past Surgical History / Comment(s): LT KNEE ARTHROSCOPY. LT CTR. HX KIDNEY STONE REMOVAL 10/2012, JOSE ALFREDO LASER EYE SURG. PAIN CLINIC PROCEDURES, BREAST BX LT BREAST, right knee replacement, lithotripsy Past Anesthesia/Blood Transfusion Reactions: No Reported Reaction Past Psychological History: No Psychological Hx Reported Smoking Status: Never smoker Past Alcohol Use History: None Reported Past Drug Use History: None Reported - Past Family History Mother Family Medical History: Cancer, Hypertension Additional Family Medical History / Comment(s): FROM THYROID [place], Father Family Medical History: Cancer Additional Family Medical History / Comment(s): FROM STOMACH [place], HX ALCOHOLISM General Exam - General Exam Comments Initial Comments: GENERAL: Patient is well-developed and well-nourished. Patient is nontoxic and well-hy drated and is in mild distress. ENT: Neck is soft and supple. No significant lymphadenopathy is noted. Oropharynx is clear. Moist mucous membranes. Neck has full range of motion without eliciting any pain. EYES: The sclera were anicteric and conjunctiva were pink and moist. Extraocular movements were intact and pupils were equal round and reactive to light. Eyelids were unremarkable. SKIN: Skin is clear with no lesions or rashes and otherwise unremarkable. NEUROLOGIC: Patient is alert and oriented x3. Cranial nerves II through XII are grossly intact. Motor and sensory are also intact. Normal speech, volume and content. Symmetrical smile. MUSCULOSKELETAL: Normal extremities with adequate strength and full range of motion. Straight leg test positive on the left leg at about 45. Patient has no numbness or weakness. LYMPHATICS: No significant lymphadenopathy is noted PSYCHIATRIC: Normal psychiatric evaluation. Limitations: no limitations Course Vital Signs 01/09/22 07:24 Temperature 97.9 F Pulse Rate 108 H Respiratory 18 Rate Blood Pressure 131/69 O2 Sat by Pulse 95 Oximetry Medical Decision Making - Medical Decision Making patient received a shot of Dilaudid and Toradol and got a prednisone pill Disposition Clinical Impression: Sciatica Disposition: HOME SELF-CARE Condition: Good Instructions (If sedation given, give patient instructions): Sciatica (ED) Prescriptions: predniSONE [Deltasone] 40 mg PO DAILY #8 tab Is patient prescribed a controlled substance at d/c from ED?: No Referrals: Richard Tinoco MD [Primary Care Provider] - 1-2 days Time of Disposition: 08:47
== END 2022-01-09 09:10 | disposition home or self-care (01) ==
LOC: EC 07:23
DX: M54.42 Lumbago with sciatica, left side (principal); I10 Essential (primary) hypertension; I25.2 Old myocardial infarction; I25.10 Atherosclerotic heart disease of native coronary artery without angina pectoris; J45.909 Unspecified asthma, uncomplicated; E78.5 Hyperlipidemia, unspecified; K21.9 Gastro-esophageal reflux disease without esophagitis; Z79.890 Hormone replacement therapy; Z79.52 Long term (current) use of systemic steroids; Z79.1 Long term (current) use of non-steroidal anti-inflammatories (NSAID); Z79.84 Long term (current) use of oral hypoglycemic drugs; Z79.899 Other long term (current) drug therapy
CPT/HCPCS: 72100; 99283; 96374; 96372; J1885; J7512; J1170

== ENCOUNTER 2022-01-22 22:31 | Emergency (ER) | payer MEDICARE, OTHER ==
[2022-01-22 22:49] VITALS: BP 144/78; PULSE 111; RESP 22; TEMP 98
[2022-01-23] MEDS ORDERED: KETOROLAC 15 MG/ML 1 ML VIAL IM STA (00:11)
--- NOTE | 2022-01-23 00:16 | ED ---
Back Pain HPI - General Chief Complaint: Back Pain/Injury Stated Complaint: Back pain Time Seen by Provider: 01/22/22 23:23 Source: patient, family Limitations: no limitations - History of Present Illness Initial Comments: 71-year-old female presents to the emergency room with low back pain radiates down the back of her left leg. Patient states that she has had this same pain in the past. She has received multiple steroid injections. She does see Dr. Syed and is scheduled to have surgery on February 11. She states that Toradol has worked for her in the past but [place] does not. She states that she was seen recently for the same pain and given steroids. She denies any fevers, no nausea vomiting diarrhea no bowel or bladder incontinence MD Complaint: back pain -: month(s) - Related Data Home Medications Medication Instructions Recorded Confirmed Clopidogrel Bisulfate [Clopidogrel] 75 mg PO DAILY 06/10/14 12/11/21 Meloxicam 7.5 mg PO HS 06/10/14 12/11/21 Montelukast [Singulair] 10 mg PO HS 10/01/15 12/11/21 Diltiazem HCl [Diltiazem HCl 24Hr 360 mg PO HS 04/07/16 12/11/21 ER] Amitriptyline HCl 50 mg PO BID 01/29/19 12/11/21 Ergocalciferol [Vitamin D2 50,000 unit PO SA 01/29/19 12/11/21 (DRISDOL)] lisinopriL [Zestril] 2.5 mg PO DAILY 01/29/19 12/11/21 Atorvastatin [Lipitor] 20 mg PO HS 04/23/20 12/11/21 Pantoprazole [Protonix] 40 mg PO DAILY 04/23/20 12/11/21 Isosorbide Mononitrate ER [Imdur] 30 mg PO DAILY 11/08/21 12/11/21 L.acidoph,Paracasei, B.lactis 1 cap PO DAILY 11/08/21 12/11/21 [Probiotic] Levothyroxine Sodium [Synthroid] 50 mcg PO DAILY 11/08/21 12/11/21 sitaGLIPtin [Januvia] 100 mg PO DAILY 11/08/21 12/11/21 Previous Rx's Medication Instructions Recorded HYDROcodone/APAP 7.5-325MG [[place] 1 tab PO Q4H PRN 3 Days #18 tab 12/14/21 7.5-325] predniSONE [Deltasone] 20 mg PO BID #10 tab 12/14/21 predniSONE [Deltasone] 40 mg PO DAILY #8 tab 01/09/22 Allergies Allergy/AdvReac Type Severity Reaction Status Date / Time codeine Allergy Nausea & Verified 01/22/22 22:49 Vomiting & Diarrhea levofloxacin [From Levaquin] Allergy Rapid Verified 01/22/22 22:49 Heart Rate Review of Systems ROS Statement: Those systems with pertinent positive or pertinent negative responses have been documented in the HPI. ROS Other: All systems not noted in ROS Statement are negative. Past Medical History Past Medical History: Asthma, Coronary Artery Disease (CAD), CVA/TIA, Eye Disorder, GERD/Reflux, Hyperlipidemia, Hypertension, Myocardial Infarction (AR), Musculoskeletal Disorder, Sleep Apnea/CPAP/BIPAP Additional Past Medical History / Comment(s): GLAUCOMA JOSE ALFREDO. EYES- GLASSES DAILY USE, IGA RESPONSE TRIGGERS ASTHMA, TRIGGER FINGER, LUMBAR DDD, TIA 2012- NO RESIDUAL, USES C-PAP Last Myocardial Infarction Date:: 09/2005 History of Any Multi-Drug Resistant Organisms: None Reported Past Surgical History: Joint Replacement, Orthopedic Surgery Additional Past Surgical History / Comment(s): LT KNEE ARTHROSCOPY. LT CTR. HX KIDNEY STONE REMOVAL 10/2012, JOSE ALFREDO LASER EYE SURG. PAIN CLINIC PROCEDURES, BREAST BX LT BREAST, right knee replacement, lithotripsy Past Anesthesia/Blood Transfusion Reactions: No Reported Reaction Past Psychological History: No Psychological Hx Reported Smoking Status: Never smoker Past Alcohol Use History: None Reported Past Drug Use History: None Reported - Past Family History Mother Family Medical History: Cancer, Hypertension Additional Family Medical History / Comment(s): FROM THYROID CA, Father Family Medical History: Cancer Additional Family Medical History / Comment(s): FROM STOMACH CA, HX ALCOHOLISM General Exam Limitations: no limitations General appearance: alert, in no apparent distress Eye exam: Present: normal appearance Respiratory exam: Present: normal lung sounds bilaterally. Absent: accessory muscle use Cardiovascular Exam: Present: tachycardia GI/Abdominal exam: Present: soft. Absent: distended, tenderness Extremities exam: Present: normal capillary refill. Absent: pedal edema Expanded Back exam: Absent: saddle anesthesia Back exam: Negative Straight Leg Raising: Left, Right Neurological exam: Present: alert, oriented X3 Psychiatric exam: Present: normal affect, normal mood Skin exam: Present: warm, dry, normal color. Absent: cyanosis, diaphoretic Course Vital Signs 01/22/22 22:45 Temperature 98 F Pulse Rate 111 H Respiratory 22 Rate Blood Pressure 144/78 O2 Sat by Pulse 97 Oximetry Medical Decision Making - Medical Decision Making 71-year-old female presents with chronic low back pain radiates down the back of her left leg similar to her previous back pain. She is scheduled to have surgery on February 11. She denies any fevers, no nausea vomiting diarrhea no bowel or bladder incontinence. Patient is able to ambulate. She was given a shot of Toradol and a dose of Decadron in the emergency room. She was also g iven a Lidoderm patch for pain. She was directed to follow up with her primary care doctor and Dr. Syed for continuation of care. Disposition Clinical Impression: Back pain Disposition: HOME SELF-CARE Condition: Good Instructions (If sedation given, give patient instructions): Chronic Back Pain (DC) Additional Instructions: Continue taking your previously prescribed medications and keep your appointment with your doctor for surgery on February 11. Return to the emergency room if any new or concerning symptoms including increased pain, inability to ambulate, loss of bowel or bladder function. Is patient prescribed a controlled substance at d/c from ED?: No Referrals: Richard Tinoco MD [Primary Care Provider] - 1-2 days Time of Disposition: 00:32
[2022-01-23] MEDS ORDERED: dexAMETHasone 2 MG TAB PO STA (00:49)
[2022-01-23] MEDS ORDERED: LIDOCAINE 5% PATCH TOPICAL SCH (09:00)
== END 2022-01-23 01:17 | disposition home or self-care (01) ==
LOC: EC 22:31
DX: M54.50 Low back pain, unspecified (principal); I10 Essential (primary) hypertension; E78.5 Hyperlipidemia, unspecified; I25.10 Atherosclerotic heart disease of native coronary artery without angina pectoris; K21.9 Gastro-esophageal reflux disease without esophagitis; I25.2 Old myocardial infarction; J45.909 Unspecified asthma, uncomplicated; Z79.890 Hormone replacement therapy; Z79.1 Long term (current) use of non-steroidal anti-inflammatories (NSAID); Z79.52 Long term (current) use of systemic steroids; Z79.899 Other long term (current) drug therapy
CPT/HCPCS: 99283; 96372; J8540; J1885

== ENCOUNTER → 2022-02-01 | Outpatient (CLI) | payer MEDICARE, OTHER ==
[2022-02-01 14:57] LABS: Basophils # (A) 0.04 X 10*3/uL (0.00-0.10); Basophils % (A) 0.4 %; Eosinophils # (A) 0.28 X 10*3/uL (0.04-0.35); Eosinophils % (A) 2.9 %; HCT 41.4 % (37.2-46.3); Immature Grans, Automated 0.3 %; Lymphocytes % (A) 21.6 %; MCH 28.3 pg (27.0-32.0); MCHC 31.4 g/dL (32.0-37.0); Mean Platelet Volume 11.9 fL (9.5-12.2); Monocytes # (A) 0.59 X 10*3/uL (0.20-1.00); Monocytes % (A) 6.1 %; NRBC Per 100 WBC 0 /100 WBCS (0.0-0.0); Neutrophils # (A) 6.69 X 10*3/uL (1.80-7.70); Neutrophils % (A) 68.7 %; Platelet Count 244 X 10*3/uL (140-440); RDW 13.5 % (11.5-14.5); WBC 9.73 X 10*3/uL (4.50-10.00)
[2022-02-01 15:51] LABS: African American GFR (CKD) 67.5 (60.0-200.0); Albumin 4.5 g/dL (3.8-4.9); Albumin/Globulin Ratio 1.66 (1.60-3.17); Anion Gap 16.8 mmol/L (10.00-18.00); BUN/Creat Ratio 15.36 Ratio (12.00-20.00); Blood Urea Nitrogen 15.1 mg/dL (9.0-27.0); Calcium 9.6 mg/dL (8.7-10.3); Carbon Dioxide 20.1 mmol/L (20.0-27.5); Globulin 2.7 g/dL (1.6-3.3); Non-African American GFR(CKD) 58.2 (60.0-200.0); Potassium 4.2 mmol/L (3.5-5.5); Total Bilirubin 0.3 mg/dL (0.30-1.20); Total Protein 7.2 g/dL (6.2-8.2)
[2022-02-01 16:00] LABS: INR 0.91 (0.90-1.11); Prothrombin Time 10.3 sec (9.9-11.9)
== END | disposition home or self-care (01) ==
LOC: LABPAT 08:04
PROVIDERS: ATTEND Family Medicine
DX: Z01.812 Encounter for preprocedural laboratory examination (principal)
CPT/HCPCS: 80053; 85025; 85610; 87070; 93005

== ENCOUNTER → 2022-02-02 | Outpatient (CLI) | payer MEDICARE, OTHER ==
--- NOTE | 2022-02-02 16:17 | P.PN ---
Subjective Progress Note Date: 02/02/22 this is a follow-up for this patient who is a 71-year-old female with known history of obstructive sleep apnea. The patient suffers from chronic back pain and the patient is going to undergo a lumbar fusion next week at [facility]. Meanwhile, she has diagnosis of obstructive sleep apnea and the patient limited on a pressure of 10 cm of water. The patient is using a dreamware small size under the nose mask. She continues to benefit from the machine. She is extremely compliant. Based on the compliancy evaluation was done today, the patient utilizing machine every night and she has achieved more than 4 hours 100% of the time and has average use of the machine is around 8.3 hours per night and currently is in order of 7 L per minute and her AHI is down to 1.5 indicating successful treatment and successful clinical response. Her current body weight is 170 and her body mass index of 75.5 and she has managed to maintain a stable body weight. No sleep paralysis P no hallucinations. No nocturnal arousals because of worsening shortness of breath. No nocturnal heartburns. Sleep quality remains quite good. Objective - Exam the patient's blood pressure is 146/62 with a pulse of 108 aspiration of 16 with a temperature 98.1 and the body weight is 170 pounds with a height of 4 feet and 10 inches and a body mass index is 35.5. Oxygen saturations around 95%. Gen. appearance the patient is calm and comfortable and she is not having any respiratory distress The patient appeared well nourished and normally developed. Vital signs as documented. Head exam is unremarkable. No scleral icterus or corneal arcus noted. Neck is without jugular venous distension, thyromegaly, or carotid bruits. Carotid upstrokes are brisk bilaterally. Lungs are clear to auscultation and percussion. Cardiac exam reveals the PMI to be normally sized and situated. Rhythm is regular. First and second heart sounds normal. No murmurs, rubs or gallops. Abdominal exam reveals normal bowel sounds, no masses, no organomegaly and no aortic enlargement. Extremities are nonedematous and both femoral and pedal pulses are normal.Examination of the skin revealed no evidence of significant rashes, suspicious appearing nevi or other concerning les ions.Neurologically, the patient is awake and alert and the patient does not have any focal neurological deficit. Cranial nerves are essentially intact. Assessment and Plan Plan: 1 obstructive sleep apnea, treated successfully with a CPAP pressure of 10 cm of water. Clinically improved and the patient is very compliant 2 chronic back pain awaiting lumbar spine fusion 3 chronic hypersomnia, improved and the patient's current [place] score is down to 1 4 obesity with a stable body weight 5 hypothyroidism 6 coronary artery disease 7 hyperlipidemia 8 history of IgA deficiency 9 osteoarthritis 10 history of TIA Plan continue CPAP turbinates and level of pressure. Refilled and the supplies will be given. No need for any further adjustment. He remains successful. Proceed with spine surgery and take the CPAP machine to be used perioperatively. We'll continue to follow. See me back in a years time.
== END ==
LOC: SLEEP 14:31
PROVIDERS: ATTEND Internal Medicine Critical Care Medicine
DX: G47.33 Obstructive sleep apnea (adult) (pediatric) (principal); M54.9 Dorsalgia, unspecified; E66.9 Obesity, unspecified; E03.9 Hypothyroidism, unspecified; I25.10 Atherosclerotic heart disease of native coronary artery without angina pectoris; E78.5 Hyperlipidemia, unspecified; M19.90 Unspecified osteoarthritis, unspecified site; Z86.73 Personal history of transient ischemic attack (TIA), and cerebral infarction without residual deficits; Z86.2 Personal history of diseases of the blood and blood-forming organs and certain disorders involving the immune mechanism; Z99.89 Dependence on other enabling machines and devices; Z68.35 Body mass index [BMI] 35.0-35.9, adult; Z88.1 Allergy status to other antibiotic agents; Z88.5 Allergy status to narcotic agent

== ENCOUNTER 2022-02-11 05:34 | Inpatient (IN) | payer MEDICARE, OTHER ==
[2022-02-09 09:30] VITALS: BMI 33.5
[~2022-02-11 05:34] MED LIST changes: -ACETAMINOPHEN TAB 500 MG TAB PO ONE; +ACETAMINOPHEN TAB 500 MG TAB PO PRN; -DEXAMETHASONE SOD PHOSPHATE 10 MG/ML 1 ML VIAL IV ONE; +DEXAMETHASONE SOD PHOSPHATE 4 MG/ML 1 ML VIAL IV ONE; -GABAPENTIN 300 MG CAP PO ONE; +GABAPENTIN 300 MG CAP PO PRN; -LACTATED RINGERS 1,000 ML IV SCH; +LIDOCAINE 1% (10MG/ML) FOR IV START INTRADERMA PRN; -MELOXICAM 7.5 MG TAB PO ONE; -MIDAZOLAM 2 MG/2 ML VIAL IV PRN; +ONDANSETRON 4 MG/2 ML VIAL IVP PRN; -ROPIVACAINE 246.25 MG, EPINEPHrine 0.5 MG, KETOROLAC 30 MG, cloNIDine HCL/PF 80 MCG, WA... MISCELLANE ONE; -TRANEXAMIC ACID 1,000 MG in SODIUM CHLORIDE 0.9% 100 ML IVPB ONE; +TRANEXAMIC ACID IN NACL,ISO-OS 1,000 MG in SALINE 1 100ML.BAG IVPB PRN; -fentaNYL (PF) 50 MCG/ML 2 ML AMP IV PRN
[2022-02-11 06:23] LABS: Glucose,Whole Blood 111 mg/dL (75-99)
[2022-02-11] MEDS: LACTATED RINGERS 1,000 ML IV SCH (06:34)
[2022-02-11] MEDS ORDERED: MIDAZOLAM 2 MG/2 ML VIAL IVP ONE (06:46)
--- NOTE | 2022-02-11 06:54 | P.HPOR ---
History of Present Illness H&P Date: 02/01/22 Chief Complaint: Low back pain, LE weakness, LE pain [facility] Date of :[birth year] Age: 71 year Height: 4'11" Weight: 168 lbs BP:115/75 BMI: 33.93 kg/m2 Occupation: Retired VAS: 7 CHIEF COMPLAINT: Lumbar pain HISTORY: Xrays No new xrays taken in office Trauma or injury No Work-Related No Pain description aching, sharp. Location posterior diffuse Activity Modification yes , unable to stand or ambulate for extended periods of time. Hand Dominance right DOI: Chronic DOS: L4-L5 L5-S1 decompression and fusion TREATMENTS COMPLETED: 6 weeks of PT completed? Yes How many sessions? 12 Did it help? No Physician directed home exercise completed? yes , with no relief. Medications yes List: Mobic, [place] without relief. Medrol Dose John with moderate, temporary relief. Alternative interventions Chiropractic: No Massage therapy: No Brace: No Injections Yes (lumbar MARCO A through both [facility] and Dr. Donovan) How many? Several Did they help? No, last 1 month ago RFA: yes , without relief SUBJECTIVE: Patient presents to the office for a pre-op review of the planned L2-Pelvis revision decompression and fusion. Since the time of the last appointment the patient reports that her symptoms have continued to persist. She notes that she has failed to improve with all conservative treatment modalities trailed thus far. Otherwise she reports continued disability and cannot complete most of her daily functions due to the severity of her symptoms. She denies any chest pain or difficultbreathing, no bladder or bowel retention/incontinence, no perineal numbness/tingling, and ambulates independently. HPI: Ms. Greene last presented to the office on 01/13/2022 for an evaluation of her lumbar spine. She reports pain ongoing for several years with no known injury or trauma to indicate an exact onset of her symptoms. Since the onset the patient r eports that her pain and symptoms have progressively worsened in severity. Of note, the patient does have a history of a L4-S1 decompression and fusion done through Dr. Aguayo 5 years ago. She reports increased pain over the last year. Regarding her symptoms, she reports sharp posterior lumbar pain that radiates into the bilateral lower extremities, left worse than right, on the lateral sides. With this she does report intermittent numbness/tingling as well through the posterior legs. Her symptoms are made worse with prolonged standing and ambulation. Due to the she does report instability and feeling like she is ongoing to fall frequently. Additionally patient reports frequent sleep disturbances. Overall she reports greatly decreased functionality secondary to her symptoms. As for treatments, the patient reports having trialed PT, a physician recommended HEP for greater than 3 months with no relief. Additionally she has trialed [place] and mobic without any relief. Patient does report moderate, temporary relief with trialing a Medrol Dose John. Lastly, patient has had several lumbar MARCO A's, noting temporary relief that has greatly decreased in effectiveness. Specifically with her most recent injection 1 month ago she reported relief for 1 day. In addition to the MARCO A's she has had RFA's without any relief. Otherwise, the patient reports several trips to the emergency room due to the severity of her symptoms. Patient denies any chest pain or difficultbreathing, no bladder or bowel retention/incontinence, no perineal numbness/tingling, and ambulates independently. The patients' past social, medical, family, surgical history, as well as review of systems, have been reviewed. Please refer to the Neurosurgery History and Physical form that has been scanned in to our electronic medical record system. 14 points review of systems completed and as stated in HPI, all other systems reviewed are negative. Review of Systems 14 points review of systems completed and as stated in HPI, all other systems reviewed are negative. Constitutional: Reports as per HPI Past Medical History Past Medical History: Asthma, CVA/TIA, Diabetes Mellitus, Eye Disorder, GERD/Reflux, Hyperlipidemia, Hypertension, Myocardial Infarction (VT), Osteoarthritis (OA), Sleep Apnea/CPAP/BIPAP, Thyroid Disorder Additional Past Medical History / Comment(s): IGA(deficiency) RESPONSE TRIGGERS ASTHMA, LUMBAR DDD, TIA 2012- NO RESIDUAL, USES C-PAP, hiatal hernia, hx kidney stones Last Myocardial Infarction Date:: 09/2005 History of Any Multi-Drug Resistant Organisms: None Reported Past Surgical History: Appendectomy, Breast Surgery, Cholecystectomy, Heart Catheterization, Joint Replacement, Orthopedic Surgery Additional Past Surgical History / Comment(s): LT KNEE ARTHROSCOPY. LT CTR. HX KIDNEY STONE REMOVAL 10/2012, JOSE ALFREDO LASER EYE SURG. PAIN CLINIC PROCEDURES, BREAST BX LT BREAST, jose alfredo knee replacement, lithotripsy 2020, jose alfredo cataracts Past Anesthesia/Blood Transfusion Reactions: No Reported Reaction Smoking Status: Never smoker - Past Family History Mother Family Medical History: Cancer Additional Family Medical History / Comment(s): FROM THYROID CA, Father Family Medical History: Cancer Additional Family Medical History / Comment(s): FROM STOMACH CA, HX ALCOHOLISM Medications and Allergies Home Medications Medication Instructions Recorded Confirmed Type Clopidogrel Bisulfate [Clopidogrel] 75 mg PO DAILY 06/10/14 02/11/22 History Meloxicam 7.5 mg PO HS 06/10/14 02/11/22 History Montelukast [Singulair] 10 mg PO HS 10/01/15 02/11/22 History Diltiazem HCl [Diltiazem HCl 24Hr 360 mg PO HS 04/07/16 02/11/22 History ER] Amitriptyline HCl 50 mg PO BID 01/29/19 02/11/22 History Ergocalciferol [Vitamin D2 50,000 unit PO SA 01/29/19 02/11/22 History (DRISDOL)] Atorvastatin [Lipitor] 20 mg PO HS 04/23/20 02/11/22 History Pantoprazole [Protonix] 40 mg PO DAILY 04/23/20 02/11/22 History Isosorbide Mononitrate ER [Imdur] 30 mg PO DAILY 11/08/21 02/11/22 History L.acidoph,Paracasei, B.lactis 1 cap PO DAILY 11/08/21 02/11/22 History [Probiotic] Levothyroxine Sodium [Synthroid] 50 mcg PO DAILY 11/08/21 02/11/22 History sitaGLIPtin [Januvia] 100 mg PO DAILY 11/08/21 02/11/22 History Acetaminophen-Codeine 300-30mg 1 tab PO BID PRN 02/09/22 02/11/22 History [Tylenol w/codeine #3] lisinopriL [Zestril] 5 mg PO DAILY 02/09/22 02/11/22 History Allergies Allergy/AdvReac Type Severity Reaction Status Date / Time levofloxacin [From Levaquin] Allergy Rapid Verified 02/11/22 06:07 Heart Rate Physical Examination Osteopathic Statement: *. No significant issues noted on an osteopathic structural exam other than those noted in the History and Physical/Consult. PHYSICAL EXAMINATION: General: Awake, alert, appropriate for age, in no acute distress. HEENT: No unusual neck masses around region of lateral neck triangle, thyroid, supraclavicular groove Heart: Regular rate and rhythm, normal S1, S2 and no murmur/gallop. Lungs: Clear to auscultation bilaterally with no use of accessory muscles. Extremities: Skin warm and dry without acute lesions, coloration, temperature, skin intact, no tenderness or erythema Integument: Hairy patches: Absent Dorsal skin dimples: Absent Cafe au lait spots: Absent Surgical incisions: yes, well healed posterior midline injection. Palpation: Please see Pain drawing on Intake sheet for further detail. Midline spinal tenderness: No E6 Paralumbar tenderness: No E6 Parathoracic tenderness: No E6 Buttocks tenderness: No E6 Special findings: No POSTURAL and MUSCULO-SKELETAL EVALUATION: Coronal Balance: NEUTRAL Recumbent testing: Patient is able to lay flat on back Sagittal Balance: Positive, significant lordotic curve noted Shoulder Profile: LEVEL Pelvic Girdle: LEVEL Neck ROM: UNRESTRICTED Lumbar ROM: RESTRICTED WITH PAIN Shoulder ROM: Symmetrical Hip ROM: Symmetrical Knee ROM: Symmetrical Hands: Normal appearance, symmetrical Feet: Normal appearance, Symmetrical VASCULAR STATUS : LEFT RIGHT Wrist Pulses INTACT INTACT Pedal Pulses (Dors. pedis & post.tibialis) INTACT INTACT Color NORMAL NORMAL Edema Absent Absent NEUROLOGIC EXAMINATION: Mental Status:Awake and alert, fully oriented, with normal attention, concentration and memory, and fluent, appropriate speech. Cranial Nerves: I: Olfactory not tested. II: Visual acuity normal, no visual field deficit noted with confrontation. III,IV: Normal pupillary reflexes & intact extraocular movements without nystagmus. V,: Intact symmetrical facial sensation. VII: Intact symmetrical facial motor movement VIII: Hearing intact. IX,X: Intact gag, swallow, & normal voice. XI: Sternocleidomastoid, trapezius function intact. XII: Tongue midline with normal movements. L'hermitte's Sign: Negative / absent Spurling'Sign: Absent bilaterally. Cubital percussion test: Absent bilaterally. Plata-Tinel sign - Carpal region: Absent bilaterally. Straight Leg Raising: Absent bilaterally. Crossed straight leg raise: negative O8 MOTOR EXAM (0-5/5, N/T) STRENGTH RIGHT LEFT Shoulder Abd (not part of the HARESH score) 5 5 Elbow Flexors 5 5 Elbow Extensor 4+ 4+ Wrist Dorsiflexors 5 5 Finger Abductor 5 5 Vegetable Loader 5 5 Hip Flexor (Not part of HARESH Motor score) 5 5 Knee Flexor 5 5 Knee Extensor 5 5 Ankle dorsiflexor 4+ 4 Ankle plantarflexion 4+ 4 Extensor hallucis 5 5 REFLEXES(0-4/2, NT) RIGHT LEFT Upper Extremities 2 2 Lower Extremities 3 3 Pathological Reflexes RIGHT LEFT Plata's Present Present Clonus Absent Absent Babinski Absent Absent # Indicates mechanical impairment Muscle appearance: Symmetrical, without signs of atrophy or dystrophy. Sensory system (0-4, N/T) Test type RU LILIA RL LL Joint-Position 2 2 2 2 Vibration 2 2 2 2 Pain & LT sense 2 2 2 2 Dermatomal Deficit: None None None None Gait and Functional Evaluation: Ambulatory aids: Independent Romberg's test: Intact bilaterally Toe heel walk / heel-toe walk intact while maintaining satisfactory balance? No Squatting/straightening w/o assistance to a min of 60 degree knee flexion? No Single leg stance: not intact bilaterally, worse on the left side. Trendelenburg sign negative bilaterally Hand and finger dexterity intact bilaterally? yes Disdiadochokinesis examination negative bilaterally? yes Results XRay taken on 01/13/22 of Lumbar, Pelvis Spine: is reviewed and demonstrate spondylosis from L2 to S1. There is facet arthrosis disc desiccation as well as instability findings. There is a grade 1 spondylolisthesis L3 on L4 noted there is retrolisthesis L4-L5. There is foraminal stenosis. No fracture or dislocation is noted. There is flattening of the normal lumbar lordosis there is adjacent segment disease noted L2 through L3 4. Hardware is in place L4 to S1. Potential for hardware loosening noted. There is haloing around the upper screws. AP pelvis demonstrates congruent level pelvis no fracture dislocation CT Myelogram from 01/26/2022 of the thoracic and lumbar spine: severe stenosis L2 through L3 4 with adjacent segment disease L2-3 L3 4 grade 1 spondylolisthesis L3-L4 postsurgical changes L4 through S1 are noted with pseudoarthrosis L4-L5. No other fracture or dislocation noted at this time. MRI scan of Lumbar Spine: This demonstrates adjacent segment disease L2-3 L3 4. There is metal artifact from L4 to S1 making it difficult to assess these areas however there is moderate to severe stenosis L2 through L3 4 which is noted. There spondylosis L2 to S1. There is facet arthrosis and bogginess noted at these levels. There is disc desiccation as well noted. There is central and foraminal stenosis related to these findings. There is ligamental hypertrophy at the above levels. No acute fractures noted no lesions noted. - Labs Labs: Abnormal Lab Results - Last 24 Hours (Table) 02/11/22 Range/Units 06:21 POC Glucose (mg/dL) 111 H (75-99) mg/dL Assessment and Plan Assessment: It was my pleasure to have seen and examined Nidia. I reviewed the patient's clinical syndrome, physical findings, and imaging studies during the appointment today. It is my impression that the patient has a diagnosis of. 1. L2-S1 stenosis, severe at L2-L4 2.L2-S1 spondylosis 3. Adjacent Segment Disease L2-L3, L3-L4 4. L3-L4 grade 1 spondylolisthesis 5. S/P L4-S1 decompression and fusion I outlined the natural course history without intervention and various interventional options. Plan: 1. I discussed treatment options with the patient, including operative and non-operative options, and they have elected to proceed with the following surgical procedure: L2-Pelvis revision decompression and fusion The indications, risks, benefits, and alternatives to surgery were discussed with the patient and family at length. Specifically (but not limited to) the risks of infection, stiffness, recurrence of symptoms, need for revision surgery, local numbness, neurovascular injury, and blood clots were discussed. The patient's questions were answered. The decision to proceed was made. Consent will be obtained for the procedure. Spine Surgery Risk Review Nidia Greene is presenting for evaluation of lumbar pain. It was my pleasure to have seen and examined Nidia Greene. In our visit today we have had a chance to go over subjective complaints, physical examination findings and treatments including the natural course history without intervention and various interventional options. The patients imaging demonstrates xray: is reviewed and demonstrate spondylosis from L2 to S1. There is facet arthrosis disc desiccation as well as instability findings. There is a grade 1 spondylolisthesis L3 on L4 noted there is retrolisthesis L4- L5. There is foraminal stenosis. No fracture or dislocation is noted. There is flattening of the normal lumbar lordosis there is adjacent segment disease noted L2 through L3 4. Hardware is in place L4 to S1. Potential for hardware loosening noted. There is haloing around the upper screws. AP pelvis demonstrates congruent level pelvis no fracture dislocation. MRI: This demonstrates adjacent segment disease L2-3 L3 4. There is metal artifact from L4 to S1 making it difficult to assess these areas however there is moderate to severe stenosis L2 through L3 4 which is noted. There spondylosis L2 to S1. There is facet arthrosis and bogginess noted at these levels. There is disc desiccation as well noted. There is central and foraminal stenosis related to these findings. There is ligamental hypertrophy at the above levels. No acute fractures noted no lesions noted. On physical exam, Nidia Greene demonstrates bilateral lower extremity radiculopathy with weakness and significantly effected gait. Patient demonstrates postive lordotic curve with significantly limited lumbar ROM. I have explained to the patient that as their condition progresses it will cause further neurological deficits and eventual paralysis. Based on the patients imaging, physical exam, and the rapid progression and disabling nature of their symptoms, at this time I recommend surgery in the form or a: L2-Pelvis revision decompression and fusion. I discussed the risk and benefits of this procedure at length with Nidia Greene. The patient agreed to considered pursuing the procedure abovementioned. Prior to surgery, she should follow up with her PCP (Cardio, ID, IM etc) for clearance. Questions were invited and answered, and the patient wishes to proceed as outlined below. Currently, I am recommendin.L2-Pelvis revision decompression and fusion 2.Follow up with PCP for surgical clearance 3.Review of surgical risks and benefits as well as an educational packet on the proposed surgical procedure. Risks: All surgical procedures come with inherent risks, including those related to positioning, anesthesia, intraoperative findings, and postoperative complications. It is important to understand that surgery does not come with any guarantee of a successful outcome as complications and adverse events are always possible. The patient was given a handout in office today discussing the surgical procedure and risks associated with the intervention, both of which were discussed with the patient. These risks include but are not limited to the following: * Experiencing same, different or even worse symptoms in back, neck, arms, or legs compared to before surgery. Requiring further surgery or other forms of treatment presently or at some time in the future at same or other levels of the intended spine surgery. On an extreme but fortunately relatively rare basis severe complication such as blindness, stroke, heart attack, temporary and/or permanent nerve injury, paralysis, coma, or may occur, sometimes without known explanation. Surgical complications may include but are not limited to risk of infection, fluid accumulation in the surgical dissection site, including a seroma or hematoma, that requires additional surgery, wound drainage, bleeding, new numbness or weakness, vision changes/loss, spinal fluid leakage, non-healing and/or infected incision, headaches, difficulty or inability to swallow, hoarseness, hemopneumothorax, pneumothorax, impotence, retrograde ejaculation, vaginal dryness; injury to nerves, spinal cord, blood vessels, lymphatics or other vital organs (i.e., bowel injury, injury to the great vessels); heterotopic bone formation; complications related to the hardware such as screws, rods, cages including misplaced hardware, device failure, instrumentation at the wrong spine level, hardware fracture/breakage, or hardware loosening; vertebral failure of the spinal column above or below the newly placed hardware; retained surgical instrumentations or devices and the need for further surgery. * Medical risks of the planned spine surgery include but are not limited to generalized Infections to the whole body or local areas outside of the surgical site (sepsis), heart attack, bleeding, anaphylaxis, meningitis, seizure, epilepsy, hearing loss, burn [place], laceration of the head or other areas of the body, bruising, hypersensitivity of the skin, bladder over distension; allergic reaction; shoulder injury related to positioning; fat, blood and air clots to other areas of the body like heart, lungs, brain; failure of internal organs such as lungs, kidneys, liver and excessive bleedin g. If blood transfusions are necessary, note that transfusions may cause intolerance reactions such as anaphylaxis or other complex reactions. Despite best efforts, the results of spine surgery might not heal in terms of bone, soft tissues such as skin, fascia, ligaments, and joints. Additionally, in order to achieve best possible results, spine surgery may be carried out beyond the initially planned levels and involve decompression, fusion including insertion of hardware at levels other than the original intended area of surgical interest change some portions of the procedure in order to ensure the best possible outcomes. With spine surgery and spinal fusion, there are different off label uses of instrumentation (devices, implants and hardware) as well as biological substances (bone morphogenic proteins, demineralized bone matrix) as well as using extra bone from allograft sources (i.e. cadaver bone) or autograft (iliac crest bone, ribs, or the spine itself). The patient has been given information about these practices and their inherent risks and benefits. [facility] is an educational center that serves as a training facility for neurosurgical and orthopedic PRACTICE REPRESENTATIVE and Nursing students. Physician assistants are medically trained surgical providers who function in the outpatient, inpatient, and operating room setting under the direct supervision of the attending surgeon. [facility] has multiple operating rooms with single and overlapping rooms running daily. They currently function under the required guidelines as produced by the [facility] Finance Committee with regards to the overlapping rooms and will continue to comply with changes to this policy as they occur. The requirements include and are complied with as follows: (1) the critical portions of the overlapping rooms will not occur at the same time, (2) the attending physician will be physically present during the critical portions of the procedure and immediately available during the entire case, and (3) a back-up attending is designated should the primary attending not be immediately available. The patient has had a chance to review all the listed information, has been given print outs detailing this information, and has had all his/her questions answered to their satisfaction. It was my pleasure to have seen and examined Nidia Greene. In our visit today we have had a chance to go over my understanding of our patient's current condition, the natural course history without intervention and various interventional options. Questions were invited and answered, and the patient wishes to proceed as outlined above. I have seen and examined the patient for 25 minutes and we have spent more than 50% of the time in repeat and detailed counseling about the patient's condition, its natural course history with out and as much as can be predicted with surgery and re-review of various surgical treatment options. In conclusion, Nidia Greene requested we proceed with the above suggested surgery and are willing to accept risks and limitations of the suggested surgery as nature of the disease process and our best attempts at treatment for the condition. Thank you again for allowing us to be part of your patient's care. Please don't hesitate to contact me if you have any further questions. Signed and authenticated by: fabián Syed DO [facility] Complex and Minimally Invasive Spine Surgery [address] [facility], [address] [address]
--- NOTE | 2022-02-11 06:54 | P.PN ---
Progress Note - Text Progress Note Date: 02/11/22 History and Physical UPDATE I have seen and examined the patient and reviewed the history and physical. There appear to be no significant changes in the patient's current medical status as outlined in the current History and Physical.
[2022-02-11] MEDS ORDERED: HYDROmorphone 0.5 MG/0.5 ML SYRINGE IVP PRN (07:00)
[2022-02-11] MEDS ORDERED: PROPOFOL 10 MG/ML 20 ML VIAL IV ONE (07:20)
[2022-02-11] MEDS ORDERED: KETAMINE 10 MG/ML 20 ML VIAL ONE (07:20)
[2022-02-11] MEDS ORDERED: LACTATED RINGERS 1,000 ML IV ONE ×4 (07:20→13:30)
[2022-02-11] MEDS ORDERED: SODIUM CHLORIDE 0.9% 100 ML BAG ONE (07:20)
[2022-02-11] MEDS ORDERED: TRANEXAMIC ACID IN NACL,ISO-OS 1,000 MG/100 ML BAG ONE (07:20)
[2022-02-11] MEDS ORDERED: ROCURONIUM 10 MG/ML (5 ML VIAL) IV ONE (07:20)
[2022-02-11] MEDS ORDERED: SUCCINYLCHOLINE CHLORIDE 100 MG/5 ML SYR IV ONE (07:20)
[2022-02-11] MEDS ORDERED: LIDOCAINE 1% INJ 10MG/ML (20 ML MDV) ONE (07:20)
[2022-02-11] MEDS ORDERED: HYDROmorphone (PF) 1 MG/ML ONE (07:20)
[2022-02-11] MEDS ORDERED: ALBUMIN HUMAN 5% (25gm) 500 ML VIAL IVPB ONE (07:20)
[2022-02-11] MEDS ORDERED: SODIUM BICARB 8.4% 50 ML SYR (1 MEQ/ML) ONE (07:20)
[2022-02-11] MEDS ORDERED: ceFAZolin 1,000 MG VIAL ONE (07:20)
[2022-02-11] MEDS ORDERED: PHENYLEPHRINE-0.9% NACL SYG 1,000 MCG/10 ML SYRINGE ONE (07:20)
[2022-02-11] MEDS ORDERED: MIDAZOLAM 2 MG/2 ML VIAL ONE (07:20)
[2022-02-11] MEDS ORDERED: fentaNYL (PF) 50 MCG/ML 2 ML AMP ONE (07:20)
[2022-02-11] MEDS ORDERED: TRANEXAMIC ACID IN NACL,ISO-OS 1,000 MG in SALINE 1 100ML.BAG IVPB ONE (08:23)
[2022-02-11 08:36] LABS: Basophils # (A) 0.1 k/uL (0-0.2); Basophils % (A) 1 %; Eosinophils # (A) 0.1 k/uL (0-0.7); Eosinophils % (A) 2 %; HCT 34.1 % (34.0-46.0); HGB 11.8 gm/dL (11.4-16.0); Lymphocytes % (A) 14 %; MCH 30.5 pg (25.0-35.0); MCHC 34.6 g/dL (31.0-37.0); MCV 88.2 fL (80.0-100.0); Mean Platelet Volume 8.9; Monocytes # (A) 0.2 k/uL (0-1.0); Monocytes % (A) 3 %; Neutrophils # (A) 5.8 k/uL (1.3-7.7); Neutrophils % (A) 80 %; Platelet Count 203 k/uL (150-450); RBC 3.86 m/uL (3.80-5.40); RDW 13.4 % (11.5-15.5); WBC 7.2 k/uL (3.8-10.6)
[2022-02-11 08:54] LABS: Allen Test Performed? Yes
[2022-02-11 08:59] LABS: ABG Base Excess -7.5 mmol/L; ABG HCO3 17 mmol/L (21-25); ABG Oxygen Saturation 98.9 % (94-97); ABG PCO2 30 mmHg (35-45); ABG PH 7.36 (7.35-7.45); ABG PO2 140 mmHg (83-108)
[2022-02-11] MEDS ORDERED: GELATIN SPONGE,ABSORB (LARGE) 1 EACH SPONGE MISCELLANE ONE ×2 (09:12)
[2022-02-11] MEDS ORDERED: THROMBIN (RECOMBINANT) 5,000 UNIT VIAL MISCELLANE ONE ×2 (09:12)
[2022-02-11 09:30] LABS: ALT 17 U/L (4-34); AST 24 U/L (14-36); African American GFR (CKD) >90 (>60 ml/min/1.73 sqM); Albumin 3.4 g/dL (3.5-5.0); Alkaline Phosphatase 111 U/L (38-126); Anion Gap 11 mmol/L; Blood Urea Nitrogen 13 mg/dL (7-17); Calcium 8.3 mg/dL (8.4-10.2); Carbon Dioxide 19 mmol/L (22-30); Chloride 109 mmol/L (98-107); Glucose 136 mg/dL (74-99); Non-African American GFR(CKD) 80 (>60 ml/min/1.73 sqM); Potassium 4.3 mmol/L (3.5-5.1); Sodium 139 mmol/L (137-145); Total Bilirubin 0.4 mg/dL (0.2-1.3); Total Protein 5.8 g/dL (6.3-8.2)
[2022-02-11] MEDS ORDERED: ceFAZolin 3,000 MG in SODIUM CHLORIDE 0.9% IRRIGATIO 3,000 ML IRRIGATION ONE (09:54)
[2022-02-11 10:42] LABS: Allen Test Performed? Yes
[2022-02-11 10:46] LABS: HCT 26.2 % (34.0-46.0); MCH 29.7 pg (25.0-35.0); MCHC 34.2 g/dL (31.0-37.0); Mean Platelet Volume 9.1; Platelet Count 172 k/uL (150-450); RBC 3.01 m/uL (3.80-5.40); RDW 13.7 % (11.5-15.5); WBC 8.7 k/uL (3.8-10.6)
[2022-02-11 10:47] LABS: ABG Base Excess -8.2 mmol/L; ABG HCO3 16 mmol/L (21-25); ABG Oxygen Saturation 98.7 % (94-97); ABG PCO2 31 mmHg (35-45); ABG PH 7.35 (7.35-7.45); ABG PO2 139 mmHg (83-108)
[2022-02-11] MEDS ORDERED: VANCOMYCIN 1,000 MG VIAL MISCELLANE ONE (13:36)
[2022-02-11 13:37] LABS: Glucose,Whole Blood 173 mg/dL (75-99)
[2022-02-11 13:48] LABS: Allen Test Performed? Yes
--- NOTE | 2022-02-11 13:51 | XR ---
Fluoroscopy History: LUMBAR FUSION Dr. Syed supervised use of neo for a lumbar fusion. fl time of 2.48 mins
[2022-02-11 13:53] LABS: HCT 28.9 % (34.0-46.0); HGB 10.1 gm/dL (11.4-16.0); MCH 30.4 pg (25.0-35.0); MCHC 34.8 g/dL (31.0-37.0); MCV 87.5 fL (80.0-100.0); Platelet Count 131 k/uL (150-450); RBC 3.31 m/uL (3.80-5.40); RDW 14.1 % (11.5-15.5)
[2022-02-11 13:54] LABS: ABG Base Excess -7.7 mmol/L; ABG HCO3 17 mmol/L (21-25); ABG PCO2 30 mmHg (35-45); ABG PH 7.36 (7.35-7.45); ABG PO2 153 mmHg (83-108)
[2022-02-11] MEDS ORDERED: HYDROmorphone 1 MG/ML 1 ML SYRINGE IVP PRN (14:28)
[2022-02-11] MEDS ORDERED: MAGNESIUM HYDROXIDE 2,400 MG/10 ML CUP PO PRN (14:28)
[2022-02-11] MEDS ORDERED: SENNOSIDES-DOCUSATE SODIUM 1 EACH TAB PO PRN (14:28)
[2022-02-11] MEDS ORDERED: bisacodyL 10 MG SUPP RECTAL PRN (14:28)
[2022-02-11] MEDS ORDERED: ONDANSETRON 4 MG/2 ML VIAL IVP PRN (14:28)
[2022-02-11 14:53] LABS: Glucose,Whole Blood 177 mg/dL (75-99)
[2022-02-11] MEDS ORDERED: ALBUTEROL NEBULIZED 2.5 MG/3 ML INHALATION ONE (15:00)
[2022-02-11] MEDS ORDERED: FUROSEMIDE 10 MG/ML 4 ML VIAL IV ONE (15:05)
[2022-02-11 15:22] LABS: ABG Base Excess -2.3 mmol/L; ABG HCO3 24 mmol/L (21-25); ABG PCO2 48 mmHg (35-45); ABG PH 7.31 (7.35-7.45); ABG PO2 150 mmHg (83-108); ABG TCO2 25 mmol/L (19-24); Allen Test Performed? no
--- NOTE | 2022-02-11 15:47 | XR ---
EXAMINATION TYPE: XR chest 1V DATE OF EXAM: 02/11/2022 HISTORY: post intubation COMPARISON: 02/10/2019 TECHNIQUE: Single view of the chest is submitted. FINDINGS: There is a right-sided pneumothorax with apical pleural distance of 3.3 cm. Pneumothorax is estimated at approximately 40%. Right IJ central venous line overlies the SVC. Endotracheal tube is 2.1 cm from the mima. Left lower lobe linear atelectasis or developing infiltrate. The heart is stable. Hilar and mediastinal structures are within normal limits. Degenerative changes are seen of the dorsal spine. IMPRESSION: 1. Right-sided pneumothorax estimated at approximately 40%. A [place] critical message alert has been initiated for Jagdeep Wilson via the [employer] on 02/11/2022 3:44 PM. This message alert has been sent to Jagdeep Wilson via t he preferences provided by the clinician for the receipt of Radiology Critical Findings. Message ID [id number].
[2022-02-11] MEDS ORDERED: propofoL 100 ML IV ONE (16:13)
[2022-02-11 16:22] LABS: Glucose,Whole Blood 183 mg/dL (75-99)
[2022-02-11] MEDS ORDERED: DEXAMETHASONE SOD PHOSPHATE 4 MG/ML 1 ML VIAL IVP PRN (16:40)
--- NOTE | 2022-02-11 16:44 | P.CNPUL ---
History of Present Illness Consult date: 02/11/22 Reason for consult: dyspnea History of present illness: 71-year-old female patient, admitted to the intensive care unit after he failed extubation in the operating room. The patient was in the operating room and the patient underwent a lumbar decompression and fusion, as the patient was having symptomatic lumbar stenosis with spondylolisthesis. Postop, the patient was extubated in the operating room. The patient did not tolerate extubation the patient had to be reintubated. I was told that during the intubation process, the patient was found to have some swelling in her upper airways and the cords. The patient was intubated by #7.5 orotracheal tube. This was done by anesthesia and the patient was placed on a mechanical ventilator. At this point in time, the patient assist-control mode at the rate of 14, tidal volume of 450, FiO2 of 35% with a PEEP of 5. The patient was also given a Cordis and a right IJ by anesthesia. The chest exit with her recovery showed a 30-40% pneumothorax on the right. ET tube was in a good location. The cordis was in the right IJ. The most recent blood gases showed a pH of 7.31 with a pCO2 of 48 and pO2 150 and this was done and FiO2 of 100%. As such, the patient was transferred to the intensive care unit. She remained hemodynamically stable and the patient is not showing any hypotension at this point in time. No signs of any tension. The most recent blood work shows a hemoglobin of 10.1 with a white cell count of 13. Past medical history is positive for CAD, obstructive sleep apnea, hypertension, hyperlipidemia, acid reflux, diabetes mellitus and previous history of CVA/TIA and previous history of asthma. Note that the patient utilizes CPAP machine at home. In terms of her sleep apnea, the patient limited on CPAP pressure of 10 cm of water. Her MONI severe the patient carries an AHI of 32.. She has history of hypothyroidism in addition. Review of Systems ROS unobtainable: due to endotracheal tube Past Medical History Past Medical History: Asthma, CVA/TIA, Diabetes Mellitus, Eye Disorder, GERD/Reflux, Hyperlipidemia, Hypertension, Myocardial Infarction ([place]), Osteoarthritis (OA), Sleep Apnea/CPAP/BIPAP, Thyroid Disorder Additional Past Medical History / Comment(s): IGA(deficiency) RESPONSE TRIGGERS ASTHMA, LUMBAR DDD, TIA 2012- NO RESIDUAL, USES C-PAP, hiatal hernia, hx kidney stones Last Myocardial Infarction Date:: 09/2005 History of Any Multi-Drug Resistant Organisms: None Reported Past Surgical History: Appendectomy, Breast Surgery, Cholecystectomy, Heart Catheterization, Joint Replacement, Orthopedic Surgery Additional Past Surgical History / Comment(s): LT KNEE ARTHROSCOPY. LT CTR. HX KIDNEY STONE REMOVAL 10/2012, JOSE ALFREDO LASER EYE SURG. PAIN CLINIC PROCEDURES, BREAST BX LT BREAST, jose alfredo knee replacement, lithotripsy 2020, jose alfredo cataracts Past Anesthesia/Blood Transfusion Reactions: No Reported Reaction Smoking Status: Never smoker - Past Family History Mother Family Medical History: Cancer Additional Family Medical History / Comment(s): FROM THYROID CA, Father Family Medical History: Cancer Additional Family Medical History / Comment(s): FROM STOMACH CA, HX ALCOHOLISM Medications and Allergies Home Medications Medication Instructions Recorded Confirmed Type Clopidogrel Bisulfate [Clopidogrel] 75 mg PO DAILY 06/10/14 02/11/22 History Meloxicam 7.5 mg PO HS 06/10/14 02/11/22 History Montelukast [Singulair] 10 mg PO HS 10/01/15 02/11/22 History Diltiazem HCl [Diltiazem HCl 24Hr 360 mg PO HS 04/07/16 02/11/22 History ER] Amitriptyline HCl 50 mg PO BID 01/29/19 02/11/22 History Ergocalciferol [Vitamin D2 50,000 unit PO SA 01/29/19 02/11/22 History (DRISDOL)] Atorvastatin [Lipitor] 20 mg PO HS 04/23/20 02/11/22 History Pantoprazole [Protonix] 40 mg PO DAILY 04/23/20 02/11/22 History Isosorbide Mononitrate ER [Imdur] 30 mg PO DAILY 11/08/21 02/11/22 History L.acidoph,Paracasei, B.lactis 1 cap PO DAILY 11/08/21 02/11/22 History [Probiotic] Levothyroxine Sodium [Synthroid] 50 mcg PO DAILY 11/08/21 02/11/22 History sitaGLIPtin [Januvia] 100 mg PO DAILY 11/08/21 02/11/22 History Acetaminophen-Codeine 300-30mg 1 tab PO BID PRN 03/15/22 03/17/22 History [Tylenol w/codeine #3] lisinopriL [Zestril] 5 mg PO DAILY 02/09/22 02/11/22 History Allergies Allergy/AdvReac Type Severity Reaction Status Date / Time levofloxacin [From Levaquin] Allergy Rapid Verified 02/11/22 06:07 Heart Rate Physical Exam Vitals: Vital Signs Temp Pulse Pulse Resp BP Pulse Ox 02/11/22 14:31 1431 F H 114 H 16 120/57 93 L 02/11/22 06:30 97.5 F L 96 136/59 93 L Intake and Output 02/11/22 02/11/22 02/11/22 06:59 14:59 22:59 Intake Total 200 5216 Output Total 2100 Balance 200 3116 Intake: IV 200 4351 Blood Product 865 Rc Pheresis As-3 Unit 279 [id number] Rc Pheresis As-3 Unit 310 [id number] Rc Pheresis As-3 Unit 276 [id number] Output: Urine 1000 Estimated Blood Loss 1100 Other: Weight 75.75 kg The patient is currently sedated and the patient is calm, comfortable not in distress Head exam was generally normal. There was no scleral icterus or corneal arcus. Mucous membranes were moist. Neck was supple and without jugular venous distension, thyromegaly, or carotid bruits. Carotids were easily palpable bilaterally. There was no adenopathy. The patient is a right IJ Cordis in place. Examination of the lungs revealed diminished breath on the right compared to left. No significant wheezes or rhonchi early crackles. Cardiac exam revealed the PMI to be normally situated and sized. The rhythm was regular and no extrasystoles were noted during several minutes of auscultation. The first and second heart sounds were normal and physiologic splitting of the second heart sound was noted. There were no murmurs, rubs, clicks, or gallops. Abdominal exam revealed normal bowel sounds. The abdomen was soft, non-tender, and without masses, organomegaly, or appreciable enlargement of the abdominal a malissa. Examination of the extremities revealed easily palpable radial, femoral and pedal pulses. There was no cyanosis, clubbing or edema. Examination of the skin revealed no evidence of significant rashes, suspicious appearing nevi or other concerning lesions. neurologic the patient is still sedated. Results - Laboratory Findings CBC and BMP: 02/11/22 13:30 02/11/22 08:10 ABG ABG pH 7.31 (7.35-7.45) L 02/11/22 15:16 ABG pCO2 48 mmHg (35-45) H 02/11/22 15:16 ABG pO2 150 mmHg (83-108) H 02/11/22 15:16 ABG O2 Saturation 99.0 % (94-97) H 02/11/22 15:16 Abnormal lab findings: Abnormal Labs 02/04/22 02/11/22 02/11/22 07:57 06:21 08:10 WBC RBC Hgb Hct Plt Count ABG pH ABG pCO2 ABG pO2 ABG HCO3 ABG Total CO2 ABG O2 Saturation Chloride 109 H Carbon Dioxide 19 L Glucose 136 H POC Glucose (mg/dL) 111 H Calcium 8.3 L Total Protein 5.8 L Albumin 3.4 L Crossmatch See Detail 02/11/22 02/11/22 02/11/22 08:10 10:23 10:23 WBC RBC 3.01 L Hgb 9.0 L D Hct 26.2 L Plt Count ABG pH ABG pCO2 30 L 31 L ABG pO2 140 H 139 H ABG HCO3 17 L 16 L ABG Total CO2 ABG O2 Saturation 98.9 H 98.7 H Chloride Carbon Dioxide Glucose POC Glucose (mg/dL) Calcium Total Protein Albumin Crossmatch 02/11/22 02/11/22 02/11/22 13:30 13:30 13:36 WBC 13.0 H RBC 3.31 L Hgb 10.1 L Hct 28.9 L Plt Count 131 L ABG pH ABG pCO2 30 L ABG pO2 153 H ABG HCO3 17 L ABG Total CO2 ABG O2 Saturation 99.0 H Chloride Carbon Dioxide Glucose POC Glucose (mg/dL) 173 H Calcium Total Protein Albumin Crossmatch 02/11/22 02/11/22 02/11/22 14:50 15:16 16:20 WBC RBC Hgb Hct Plt Count ABG pH 7.31 L ABG pCO2 48 H ABG pO2 150 H ABG HCO3 ABG Total CO2 25 H ABG O2 Saturation 99.0 H Chloride Carbon Dioxide Glucose POC Glucose (mg/dL) 177 H 183 H Calcium Total Protein Albumin Crossmatch - Diagnostic Findings Chest x-ray: image reviewed Assessment and Plan Plan: 1 acute hypoxic respiratory failure. The patient failed extubation and operating room. The patient had to be intubated. The post intubation chest x- ray shows a 40% pneumothorax on the right. At the same time, the patient has probably some upper airway edema as noted by anesthesia as she was a difficult intubation. At the same time, the patient has underlying sleep breathing disorder/obstructive sleep apnea and this combination contributing to her respiratory failure. For now, the patient is reintubated and admitted intensive care unit. 2 lumbar spine decompression/fusion. The patient is postop day #0 3 severe obstructive sleep apnea maintained on CPAP therapy on outpatient basis at a pressure of 10 cm of water followed up with me in the sleep center 4 chronic back pain related to lumbar spine spondylosis 5 obesity with a BMI of 33.7 6 coronary artery disease, currently inactive and stable. Last myocardial infarction was in 2017 7 hyperlipidemia 8 history of IgA deficiency 9 hypothyroidism Plan Keep the patient sedated overnight with propofol We will insert a thora vent in the right chest and obtain a follow-up chest x- ray Monitor blood gases Gradually wean of the FiO2 to maintain saturation above 90%. Keep the rest of the ventilator settings unchanged Careful weaning. May prefer to give her some Decadron for upper airway swelling/edema Dilaudid for pain control Propofol for sedation DuoNeb nebulized treatments around the clock Resume all medications including Synthroid and put the patient on Protonix, hold Plavix for now NovoLog insulin sliding scale coverage We'll continue to follow
--- NOTE | 2022-02-11 16:46 | P.PCN ---
Date of Procedure: 02/11/22 Preoperative Diagnosis: Right-sided pneumothorax Postoperative Diagnosis: Right-sided pneumothorax Procedure(s) Performed: Thoravent insertion Anesthesia: local Surgeon: Jamir Blakely Pathology: other Condition: critical Disposition: ICU Operative Findings: The skin was prepped using chlorhexidine. Following that, the second intercostal space on the right was palpated and the skin was infused with 1% lidocaine for local anesthesia. Following that, a scalpel was used to make an incision in the subcutaneous tissue and following that a #13-Jordanian fluoroscopy vent was inserted successfully over trocar into the right hemithorax. The pneumothorax was aspirated without any complications. Following that, the Thoravent was connected to a Pleur-evac P no evidence of any ongoing air leak at this point in time. Chest x-ray shows reexpansion of the right-sided pneumothorax. The tube was secured in placed with no complications. Chest x- rays to follow.
--- NOTE | 2022-02-11 16:55 | XR ---
EXAMINATION TYPE: XR chest 1V portable DATE OF EXAM: 02/11/2022 4:45 PM COMPARISON: Chest radiograph same day. TECHNIQUE: XR chest 1V portable Frontal view of the chest. CLINICAL INDICATION:Female, 71 years old with history of thoravent and OG placement; FINDINGS: Lungs/Pleura: Low lung volumes. There is no evidence of pleural effusion, focal consolidation, or pne umothorax. Pulmonary vascularity: Unremarkable. Heart/mediastinum: Cardiomediastinal silhouette is unremarkable. Musculoskeletal: Multiple level degenerative disc disease changes seen throughout the spine. Lines/Tubes: Endotracheal tube with distal tip 12.6 cm above the mima Nasogastric tube with its distal tip and side-port projecting under the diaphragm. Right thoracotomy tube is present without definitive evidence of evidence of pneumothorax. Right internal jugular central venous catheter with distal tip at the cavoatrial junction. IMPRESSION: 1. Interval placement of right thoracotomy tube without evidence for pneumothorax. 2. Interval placement of nasogastric tube with distal tip and side-port in appropriate position. 3. Stable support line and tubes.
[2022-02-11] MEDS: ACETAMINOPHEN TAB 325 MG TAB PO SCH ×2 (18:29→23:56)
[2022-02-11] MEDS: SODIUM CHLORIDE 0.9% 1,000 ML IV SCH (18:29)
[2022-02-11] MEDS: GABAPENTIN 300 MG CAP PO SCH ×2 (18:29→21:19)
[2022-02-11] MEDS: INSULIN ASPART (NovoLOG) 100 UNIT/ML VIAL SQ SCH ×2 (18:30→23:55)
[2022-02-11] MEDS: DEXAMETHASONE SOD PHOSPHATE 4 MG/ML 1 ML VIAL IVP SCH ×2 (18:32→23:56)
[2022-02-11 18:36] LABS: Glucose,Whole Blood 166 mg/dL (75-99)
[2022-02-11 21:16] LABS: ABG Base Excess 3.6 mmol/L; ABG HCO3 27 mmol/L (21-25); ABG Oxygen Saturation 97.4 % (94-97); ABG PCO2 39 mmHg (35-45); ABG PH 7.46 (7.35-7.45); ABG PO2 82 mmHg (83-108); ABG TCO2 29 mmol/L (19-24); Allen Test Performed? Yes
[2022-02-11] MEDS: MONTELUKAST 10 MG TAB PO SCH (21:19)
[2022-02-11] MEDS: CHLORHEXIDINE GLUCONATE 15 ML CUP MUCOUS MEM SCH (21:19)
[2022-02-11 23:54] LABS: Glucose,Whole Blood 156 mg/dL (75-99)
[2022-02-12 05:05] LABS: Basophils % (A) 0 %; Eosinophils % (A) 0 %; HCT 30.7 % (34.0-46.0); HGB 10.6 gm/dL (11.4-16.0); Lymphocytes % (A) 7 %; MCH 29.8 pg (25.0-35.0); MCHC 34.4 g/dL (31.0-37.0); MCV 86.7 fL (80.0-100.0); Mean Platelet Volume 9.5; Monocytes # (A) 0.3 k/uL (0-1.0); Monocytes % (A) 2 %; Neutrophils # (A) 12.8 k/uL (1.3-7.7); Neutrophils % (A) 90 %; Platelet Count 120 k/uL (150-450); RBC 3.54 m/uL (3.80-5.40); RDW 14.9 % (11.5-15.5); WBC 14.1 k/uL (3.8-10.6)
[2022-02-12 05:22] LABS: African American GFR (CKD) >90 (>60 ml/min/1.73 sqM); Anion Gap 4 mmol/L; Blood Urea Nitrogen 11 mg/dL (7-17); Calcium 7.5 mg/dL (8.4-10.2); Carbon Dioxide 27 mmol/L (22-30); Chloride 106 mmol/L (98-107); Glucose 148 mg/dL (74-99); Non-African American GFR(CKD) >90 (>60 ml/min/1.73 sqM); Potassium 3.5 mmol/L (3.5-5.1); Sodium 137 mmol/L (137-145)
[2022-02-12 05:33] LABS: Glucose,Whole Blood 159 mg/dL (75-99)
[2022-02-12] MEDS: INSULIN ASPART (NovoLOG) 100 UNIT/ML VIAL SQ SCH ×4 (05:33→22:27)
[2022-02-12] MEDS: SODIUM CHLORIDE 0.9% 1,000 ML IV SCH ×2 (05:34→17:04)
[2022-02-12] MEDS: LEVOTHYROXINE 50 MCG TAB PO SCH (05:36)
[2022-02-12] MEDS: DEXAMETHASONE SOD PHOSPHATE 4 MG/ML 1 ML VIAL IVP SCH ×4 (05:36→23:43)
[2022-02-12] MEDS: ACETAMINOPHEN TAB 325 MG TAB PO SCH ×3 (05:36→17:04)
[2022-02-12] MEDS ORDERED: Potassium Replacement Protocol 1 EACH MISC MISCELLANE PRN (05:55)
[2022-02-12 06:19] LABS: ABG Base Excess 2.2 mmol/L; ABG HCO3 27 mmol/L (21-25); ABG Oxygen Saturation 98.4 % (94-97); ABG PCO2 41 mmHg (35-45); ABG PH 7.42 (7.35-7.45); ABG PO2 104 mmHg (83-108); ABG TCO2 28 mmol/L (19-24); Allen Test Performed? Yes
[2022-02-12] MEDS: LACTATED RINGERS 1,000 ML IV SCH (06:20)
[2022-02-12] MEDS: POTASSIUM BICARBONATE/CIT AC 20 MEQ TABLET.EFF NG-TUBE SCH ×2 (06:23→07:09)
--- NOTE | 2022-02-12 06:27 | XR ---
EXAMINATION TYPE: XR chest 1V portable DATE OF EXAM: 02/12/2022 CLINICAL HISTORY: Difficulty breathing and chest tube progress study. TECHNIQUE: Single AP portable semiupright view of the chest is obtained. COMPARISON: Chest x-ray from one day earlier and older studies. FINDINGS: Stable endotracheal and orogastric tubes. Stable large bore right internal jugular central venous catheter. Stable right-sided chest tube without visualized pneumothorax. Improved inspiration on current study with persistent left basilar opacity. Cardiac silhouette size m easures upper limits of normal. Osseous structures are intact. IMPRESSION: Left-sided chest tube without pneumothorax redemonstrated. Improved inspiration with pers istent left basilar acute atelectasis and/or infiltrate.
[2022-02-12] MEDS: CHLORHEXIDINE GLUCONATE 15 ML CUP MUCOUS MEM SCH (08:12)
[2022-02-12] MEDS: ENOXAPARIN 40 MG/0.4 ML SYRINGE SQ SCH (08:12)
[2022-02-12] MEDS: GABAPENTIN 300 MG CAP PO SCH ×3 (08:13→22:16)
[2022-02-12] MEDS: PANTOPRAZOLE 40 MG/10 ML VIAL IVP SCH (08:13)
--- NOTE | 2022-02-12 09:23 | P.PN ---
Subjective Progress Note Date: 02/12/22 Principal diagnosis: Neurogenic claudication lumbar pain Patient seen and examined she is vented and sedated at this time. Postoperatively the patient was found to have a pneumothorax on the right pulmonology was consult and placed a thora vent and she was reintubated due to airway protection as well as work of respirations. She is doing very well now nursing states all night she did well and the plan today will be to extubate. thora vent accomplished decompression well and she has been doing well since this. No other issues nursing states upon awakening she does move all 4 extremities with good strength. Objective - Vital Signs Vital signs: Vital Signs Temp 97.8 F 02/12/22 08:00 Pulse 118 H 02/12/22 09:00 Resp 15 02/12/22 09:00 BP 104/67 02/11/22 17:00 Pulse Ox 97 02/12/22 09:00 Intake & Output 02/11/22 02/12/22 02/12/22 18:59 06:59 18:59 Intake Total 5448.954 1059.977 273.025 Output Total 3225 2575 700 Balance 2223.954 -1515.023 -426.975 Weight 75.75 kg Intake: IV 4576 830 225 Sodium Chloride 0.9% 1, 225 830 225 000 ml @ 75 mls/hr IV . [id number] [facility] Rx#:[id number] Intake, IV Titration 7.954 229.977 48.025 Amount propofoL 1,000 mg In 7.954 229.977 48.025 Empty Bag 1 bag @ 5 MCG/ KG/MIN 2.273 mls/hr IV . Q24H [facility] Rx#:[id number] Blood Product 865 Rc Pheresis As-3 Unit 279 [id number] Rc Pheresis As-3 Unit 310 [id number] Rc Pheresis As-3 Unit 276 [id number] Output: Gastric Drainage 125 Drainage 505 Back 500 Lower Back 5 Urine 2125 1945 700 Estimated Blood Loss 1100 Other: Voiding Method Indwelling Catheter Indwelling Catheter Indwelling Catheter ABP, PAP, CO, CI - Last Documented Arterial Blood Pressure 133/68 - Exam Exam limited due to venting and sedation does not follow commands currently. Vital signs are stable patient is afebrile. - Labs CBC & Chem 7: 02/12/22 04:35 02/12/22 04:35 Labs: Abnormal Lab Results - Last 24 Hours (Table) 02/04/22 02/11/22 02/11/22 Range/Units 07:57 08:10 10:23 WBC (3.8-10.6) k/uL RBC 3.01 L (3.80-5.40) m/uL Hgb 9.0 L D (11.4-16.0) gm/dL Hct 26.2 L (34.0-46.0) % Plt Count (150-450) k/uL Neutrophils # (1.3-7.7) k/uL ABG pH (7.35-7.45) ABG pCO2 (35-45) mmHg ABG pO2 (83-108) mmHg ABG HCO3 (21-25) mmol/L ABG Total CO2 (19-24) mmol/L ABG O2 Saturation (94-97) % Chloride 109 H (98-107) mmol/L Carbon Dioxide 19 L (22-30) mmol/L Glucose 136 H (74-99) mg/dL POC Glucose (mg/dL) (75-99) mg/dL Calcium 8.3 L (8.4-10.2) mg/dL Total Protein 5.8 L (6.3-8.2) g/dL Albumin 3.4 L (3.5-5.0) g/dL Crossmatch See Detail 02/11/22 02/11/22 02/11/22 Range/Units 10:23 13:30 13:30 WBC 13.0 H (3.8-10.6) k/uL RBC 3.31 L (3.80-5.40) m/uL Hgb 10.1 L (11.4-16.0) gm/dL Hct 28.9 L (34.0-46.0) % Plt Count 131 L (150-450) k/uL Neutrophils # (1.3-7.7) k/uL ABG pH (7.35-7.45) ABG pCO2 31 L 30 L (35-45) mmHg ABG pO2 139 H 153 H (83-108) mmHg ABG HCO3 16 L 17 L (21-25) mmol/L ABG Total CO2 (19-24) mmol/L ABG O2 Saturation 98.7 H 99.0 H (94-97) % Chloride (98-107) mmol/L Carbon Dioxide (22-30) mmol/L Glucose (74-99) mg/dL POC Glucose (mg/dL) (75-99) mg/dL Calcium (8.4-10.2) mg/dL Total Protein (6.3-8.2) g/dL Albumin (3.5-5.0) g/dL Crossmatch 02/11/22 02/11/22 02/11/22 Range/Units 13:36 14:50 15:16 WBC (3.8-10.6) k/uL RBC (3.80-5.40) m/uL Hgb (11.4-16.0) gm/dL Hct (34.0-46.0) % Plt Count (150-450) k/uL Neutrophils # (1.3-7.7) k/uL ABG pH 7.31 L (7.35-7.45) ABG pCO2 48 H (35-45) mmHg ABG pO2 150 H (83-108) mmHg ABG HCO3 (21-25) mmol/L ABG Total CO2 25 H (19-24) mmol/L ABG O2 Saturation 99.0 H (94-97) % Chloride (98-107) mmol/L Carbon Dioxide (22-30) mmol/L Glucose (74-99) mg/dL POC Glucose (mg/dL) 173 H 177 H (75-99) mg/dL Calcium (8.4-10.2) mg/dL Total Protein (6.3-8.2) g/dL Albumin (3.5-5.0) g/dL Crossmatch 02/11/22 02/11/22 02/11/22 Range/Units 16:20 18:25 21:12 WBC (3.8-10.6) k/uL RBC (3.80-5.40) m/uL Hgb (11.4-16.0) gm/dL Hct (34.0-46.0) % Plt Count (150-450) k/uL Neutrophils # (1.3-7.7) k/uL ABG pH 7.46 H (7.35-7.45) ABG pCO2 (35-45) mmHg ABG pO2 82 L (83-108) mmHg ABG HCO3 27 H (21-25) mmol/L ABG Total CO2 29 H (19-24) mmol/L ABG O2 Saturation 97.4 H (94-97) % Chloride (98-107) mmol/L Carbon Dioxide (22-30) mmol/L Glucose (74-99) mg/dL POC Glucose (mg/dL) 183 H 166 H (75-99) mg/dL Calcium (8.4-10.2) mg/dL Total Protein (6.3-8.2) g/dL Albumin (3.5-5.0) g/dL Crossmatch 02/11/22 02/12/22 02/12/22 Range/Units 23:53 04:35 04:35 WBC 14.1 H (3.8-10.6) k/uL RBC 3.54 L (3.80-5.40) m/uL Hgb 10.6 L (11.4-16.0) gm/dL Hct 30.7 L (34.0-46.0) % Plt Count 120 L (150-450) k/uL Neutrophils # 12.8 H (1.3-7.7) k/uL ABG pH (7.35-7.45) ABG pCO2 (35-45) mmHg ABG pO2 (83-108) mmHg ABG HCO3 (21-25) mmol/L ABG Total CO2 (19-24) mmol/L ABG O2 Saturation (94-97) % Chloride (98-107) mmol/L Carbon Dioxide (22-30) mmol/L Glucose 148 H (74-99) mg/dL POC Glucose (mg/dL) 156 H (75-99) mg/dL Calcium 7.5 L (8.4-10.2) mg/dL Total Protein (6.3-8.2) g/dL Albumin (3.5-5.0) g/dL Crossmatch 02/12/22 02/12/22 Range/Units 05:30 06:12 WBC (3.8-10.6) k/uL RBC (3.80-5.40) m/uL Hgb (11.4-16.0) gm/dL Hct (34.0-46.0) % Plt Count (150-450) k/uL Neutrophils # (1.3-7.7) k/uL ABG pH (7.35-7.45) ABG pCO2 (35-45) mmHg ABG pO2 (83-108) mmHg ABG HCO3 27 H (21-25) mmol/L ABG Total CO2 28 H (19-24) mmol/L ABG O2 Saturation 98.4 H (94-97) % Chloride (98-107) mmol/L Carbon Dioxide (22-30) mmol/L Glucose (74-99) mg/dL POC Glucose (mg/dL) 159 H (75-99) mg/dL Calcium (8.4-10.2) mg/dL Total Protein (6.3-8.2) g/dL Albumin (3.5-5.0) g/dL Crossmatch Assessment and Plan Assessment: 71-year-old male postoperative day 1 revision L2 to pelvis decompression fusion postoperative pneumothorax status post thoravent 1. L2-S1 stenosis, severe at L2-L4 2.L2-S1 spondylosis 3. Adjacent Segment Disease L2-L3, L3-L4 4. L3-L4 grade 1 spondylolisthesis 5. S/P L4-S1 decompression and fusion Plan: -Appreciate treasury management sales consultant and team management. -ICU management appreciated SBT when appropriate -Activity: Ambulate QID, OOB all meals, up and about, limit lifting bending twisting to less than 5 lbs. Use walker or cane if needed for stability. -Daily PT/OT, increase ambulation strength and balance. -Brace when up and about, not needed in bed or chair -Pain control: Adequate at this time -Meds: reviewed -GI ppx: senna, Miralax -DC flowers when up and about, bedside commode if needed -DVT PPX: OK to restart Heparin tonight -Hygiene: Shower today. Maintain dressing clean and dry. Meticulous cleaning after BMs away from incision site -Drains: Maintain for now. Record output -Encourage IS 10x/hr -Noncontrasted CT lumbar spine once extubated -Dispo: Pending
--- NOTE | 2022-02-12 09:51 | P.PN ---
Subjective Progress Note Date: 02/12/22 71-year-old female patient, admitted to the intensive care unit after he failed extubation in the operating room. The patient was in the operating room and the patient underwent a lumbar decompression and fusion, as the patient was having symptomatic lumbar stenosis with spondylolisthesis. Postop, the patient was extubated in the operating room. The patient did not tolerate extubation the patient had to be reintubated. I was told that during the intubation process, the patient was found to have some swelling in her upper airways and the cords. The patient was intubated by #7.5 orotracheal tube. This was done by anesthesia and the patient was placed on a mechanical ventilator. At this point in time, the patient assist-control mode at the rate of 14, tidal volume of 450, FiO2 of 35% with a PEEP of 5. The patient was also given a Cordis and a right IJ by anesthesia. The chest exit with her recovery showed a 30-40% pneumothorax on the right. ET tube was in a good location. The cordis was in the right IJ. The most recent blood gases showed a pH of 7.31 with a pCO2 of 48 and pO2 150 and this was done and FiO2 of 100%. As such, the patient was transferred to the intensive care unit. She remained hemodynamically stable and the patient is not showing any hypotension at this point in time. No signs of any tension. The most recent blood work shows a hemoglobin of 10.1 with a white cell count of 13. Past medical history is positive for CAD, obstructive sleep apnea, hypertension, hyperlipidemia, acid reflux, diabetes mellitus and previous history of CVA/TIA and previous history of asthma. Note that the patient utilizes CPAP machine at home. In terms of her sleep apnea, the patient limited on CPAP pressure of 10 cm of water. Her MONI severe the patient carries an AHI of 32.. She has history of hypothyroidism in addition. On 02/12/2022 patient seen in follow-up in intensive care unit, she remains intubated on mechanical ventilator, with assist control mode of ventilation and rate of 14, tidal volume is 450, FiO2 40% and PEEP of 5. This morning's blood gas shows pO2 of 104, pCO2 of 41, and pH is 7.42, this was done on the above- mentioned ventilator settings. Today's chest x-ray shows right-sided chest tube without pneumothorax improved inspiration with persistent left basilar acute atelectasis. Right sided Thoravent in place, connected to Pleuravac, no airleak noted. Patient is currently sedated on the Diprivan and 40 mics per kilo per minute, and maintenance fluids 0.9 normal saline at a rate of 75 ML per hour, no vasoactive drips, hemodynamically patient stable, she is in sinus mechanism with a rate of 114 BPM, blood pressure is 146/64. She is breathing comfortably, she is waking up to voice, she is following simple commands. Denies any distress. No acute issues overnight. Today's labs have been reviewed showing white blood cell count of 14.1, hemoglobin of 10.6, platelet count of 120. Electrolytes and renal profile were within normal limits. Her spinal incision is clean dry and intact, Hemovac is in place compressed and draining small amount of sanguinous output. And is following simple commands, moving all extremities. Objective - Vital Signs Vital signs: Vital Signs Temp 97.8 F 02/12/22 08:00 Pulse 118 H 02/12/22 09:00 Resp 15 02/12/22 09:00 BP 104/67 02/11/22 17:00 Pulse Ox 97 02/12/22 09:00 Intake & Output 02/11/22 02/12/22 02/12/22 18:59 06:59 18:59 Intake Total 5448.954 1059.977 273.025 Output Total 3225 2575 700 Balance 2223.954 -1515.023 -426.975 Weight 75.75 kg Intake: IV 4576 830 225 Sodium Chloride 0.9% 1, 225 830 225 000 ml @ 75 mls/hr IV . [id number] [facility] Rx#:[id number] Intake, IV Titration 7.954 229.977 48.025 Amount propofoL 1,000 mg In 7.954 229.977 48.025 Empty Bag 1 bag @ 5 MCG/ KG/MIN 2.273 mls/hr IV . Q24H [facility] Rx#:[id number] Blood Product 865 Rc Pheresis As-3 Unit 279 [id number] Rc Pheresis As-3 Unit 310 [id number] Rc Pheresis As-3 Unit 276 [id number] Output: Gastric Drainage 125 Drainage 505 Back 500 Lower Back 5 Urine 2125 1945 700 Estimated Blood Loss 1100 Other: Voiding Method Indwelling Catheter Indwelling Catheter Indwelling Catheter ABP, PAP, CO, CI - Last Documented Arterial Blood Pressure 133/68 - Exam GENERAL EXAM: Awake and alert, 71-year-old female, intubated, opening eyes to voice, and following simple commands, comfortable in no apparent distress. HEAD: Normocephalic/atraumatic. EYES: Normal reaction of pupils, equal size. Conjunctiva pink, sclera white. NOSE: Clear with pink turbinates. THROAT: No erythema or exudates. NECK: No masses, no JVD, no thyroid enlargement, no adenopathy. CHEST: No chest wall deformity. Symmetrical expansion. LUNGS: Equal air entry with no crackles, wheeze, rhonchi or dullness. CVS: Regular rate and rhythm, normal S1 and S2, no gallops, no murmurs, no rubs ABDOMEN: Soft, nontender. No hepatosplenomegaly, normal bowel sounds, no guarding or rigidity. EXTREMITIES: No clubbing, mild generalized edema, no cyanosis, 2+ pulses and upper and lower extremities. MUSCULOSKELETAL: Muscle strength and tone normal. SPINE: No scoliosis or deformity SKIN: No rashes CENTRAL NERVOUS SYSTEM: Lethargic but wakes to voice. No focal deficits, tone is normal in all 4 extremities. - Labs CBC & Chem 7: 02/12/22 04:35 02/12/22 04:35 Labs: Abnormal Lab Results - Last 24 Hours (Table) 02/04/22 02/11/22 02/11/22 Range/Units 07:57 10:23 10:23 WBC (3.8-10.6) k/uL RBC 3.01 L (3.80-5.40) m/uL Hgb 9.0 L D (11.4-16.0) gm/dL Hct 26.2 L (34.0-46.0) % Plt Count (150-450) k/uL Neutrophils # (1.3-7.7) k/uL ABG pH (7.35-7.45) ABG pCO2 31 L (35-45) mmHg ABG pO2 139 H (83-108) mmHg ABG HCO3 16 L (21-25) mmol/L ABG Total CO2 (19-24) mmol/L ABG O2 Saturation 98.7 H (94-97) % Glucose (74-99) mg/dL POC Glucose (mg/dL) (75-99) mg/dL Hemoglobin A1c (0.0-6.0) % Calcium (8.4-10.2) mg/dL Crossmatch See Detail 02/11/22 02/11/22 02/11/22 Range/Units 13:30 13:30 13:36 WBC 13.0 H (3.8-10.6) k/uL RBC 3.31 L (3.80-5.40) m/uL Hgb 10.1 L (11.4-16.0) gm/dL Hct 28.9 L (34.0-46.0) % Plt Count 131 L (150-450) k/uL Neutrophils # (1.3-7.7) k/uL ABG pH (7.35-7.45) ABG pCO2 30 L (35-45) mmHg ABG pO2 153 H (83-108) mmHg ABG HCO3 17 L (21-25) mmol/L ABG Total CO2 (19-24) mmol/L ABG O2 Saturation 99.0 H (94-97) % Glucose (74-99) mg/dL POC Glucose (mg/dL) 173 H (75-99) mg/dL Hemoglobin A1c (0.0-6.0) % Calcium (8.4-10.2) mg/dL Crossmatch 02/11/22 02/11/22 02/11/22 Range/Units 14:50 15:16 16:20 WBC (3.8-10.6) k/uL RBC (3.80-5.40) m/uL Hgb (11.4-16.0) gm/dL Hct (34.0-46.0) % Plt Count (150-450) k/uL Neutrophils # (1.3-7.7) k/uL ABG pH 7.31 L (7.35-7.45) ABG pCO2 48 H (35-45) mmHg ABG pO2 150 H (83-108) mmHg ABG HCO3 (21-25) mmol/L ABG Total CO2 25 H (19-24) mmol/L ABG O2 Saturation 99.0 H (94-97) % Glucose (74-99) mg/dL POC Glucose (mg/dL) 177 H 183 H (75-99) mg/dL Hemoglobin A1c (0.0-6.0) % Calcium (8.4-10.2) mg/dL Crossmatch 02/11/22 02/11/22 02/11/22 Range/Units 18:25 21:12 23:53 WBC (3.8-10.6) k/uL RBC (3.80-5.40) m/uL Hgb (11.4-16.0) gm/dL Hct (34.0-46.0) % Plt Count (150-450) k/uL Neutrophils # (1.3-7.7) k/uL ABG pH 7.46 H (7.35-7.45) ABG pCO2 (35-45) mmHg ABG pO2 82 L (83-108) mmHg ABG HCO3 27 H (21-25) mmol/L ABG Total CO2 29 H (19-24) mmol/L ABG O2 Saturation 97.4 H (94-97) % Glucose (74-99) mg/dL POC Glucose (mg/dL) 166 H 156 H (75-99) mg/dL Hemoglobin A1c (0.0-6.0) % Calcium (8.4-10.2) mg/dL Crossmatch 02/12/22 02/12/22 02/12/22 Range/Units 04:35 04:35 04:35 WBC 14.1 H (3.8-10.6) k/uL RBC 3.54 L (3.80-5.40) m/uL Hgb 10.6 L (11.4-16.0) gm/dL Hct 30.7 L (34.0-46.0) % Plt Count 120 L (150-450) k/uL Neutrophils # 12.8 H (1.3-7.7) k/uL ABG pH (7.35-7.45) ABG pCO2 (35-45) mmHg ABG pO2 (83-108) mmHg ABG HCO3 (21-25) mmol/L ABG Total CO2 (19-24) mmol/L ABG O2 Saturation (94-97) % Glucose 148 H (74-99) mg/dL POC Glucose (mg/dL) (75-99) mg/dL Hemoglobin A1c 6.3 H (0.0-6.0) % Calcium 7.5 L (8.4-10.2) mg/dL Crossmatch 02/12/22 02/12/22 Range/Units 05:30 06:12 WBC (3.8-10.6) k/uL RBC (3.80-5.40) m/uL Hgb (11.4-16.0) gm/dL Hct (34.0-46.0) % Plt Count (150-450) k/uL Neutrophils # (1.3-7.7) k/uL ABG pH (7.35-7.45) ABG pCO2 (35-45) mmHg ABG pO2 (83-108) mmHg ABG HCO3 27 H (21-25) mmol/L ABG Total CO2 28 H (19-24) mmol/L ABG O2 Saturation 98.4 H (94-97) % Glucose (74-99) mg/dL POC Glucose (mg/dL) 159 H (75-99) mg/dL Hemoglobin A1c (0.0-6.0) % Calcium (8.4-10.2) mg/dL Crossmatch Assessment and Plan Plan: Assessment: #1. Acute hypoxic respiratory failure, related to possible upper airway edema, and 40% right-sided pneumothorax. Patient had failed extubation and had to be reintubated in the recovery room. Patient does have underlying sleep apnea wh ich likely also contributed to her respiratory failure. This was after the lumbar spine decompression/fusion surgery on 02/11/2022. #2. Right-sided pneumothorax, status post Thoravent insertion, without tension pneumothorax, on today's chest x-ray 02/12/2022 patient has a right-sided chest tube in place without evidence of pneumothorax. Pleur-evac has no leak. This will be put to waterseal #3. Severe obstructive sleep apnea maintained on CPAP therapy on an outpatient basis at a pressure of 10 cm of water followes with Dr. Blakely in the sleep center #4. Chronic back pain related to lumbar spine spondylosis #5. Morbid obesity with BMI of 33.7 #6. Coronary artery disease, currently inactive and stable, last myocardial infarction was in 2017 #7. Hyperlipidemia #8. History of IgA deficiency #9. Hypothyroidism Plan: Today's labs and chest x-ray have been reviewed Patient was examined at the bedside along with Dr. Blakely Patient will be given a sedation holiday and placed on pressure-support of 5 and CPAP of 5 We'll obtain weaning parameters We'll obtain a cuff leak Hemodynamically she stable, vital signs have been stable, and she is following simple commands, Chest x-ray shows no pneumothorax Thoravent will be placed to waterseal with a one-way plug We'll give the patient incentive spirometer after extubation We'll follow her clinical course in the ICU I have personally seen and examined the patient, performed the documentation and the assessment and plan as written. Number of minutes spent on the visit: [15] I have personally seen and examined the patient and reviewed the documentation. I performed a joint evaluation with the nurse practitioner in this evaluation was done more than 30 minutes. I fully agree with the documentation above and the plan of care... This is a joint evaluation that was done along with a nurse practitioner. The chest x-ray was clear. The right-sided Thoravent was. Following that, the patient was taken off the sedation. The patient was given this point is breathing trial. Weaning parameters were adequate. The patient was extubated. We'll continue to follow. She is on Decadron for now. We'll keep in ICU for another 24 hours. This isn't evaluation was done in the morning 30 minutes. Time with Patient: Greater than 30
[2022-02-12 11:38] LABS: Glucose,Whole Blood 149 mg/dL (75-99)
--- NOTE | 2022-02-12 11:57 | P.CONS ---
History of Present Illness - Reason for Consult Consult date: 02/12/22 Medical management hypertension, hypothyroidism, diabetes mellitus Requesting physician: Amadeo Syed - Chief Complaint Status post revision L2 to pelvis decompression fusion, postop pneumothorax - History of Present Illness This is a 71-year-old female with past medical history of asthma, coronary artery disease, CVA/TIA, GERD, hyperlipidemia, hypertension, sleep apnea, posterior arthritis and multiple other medical issues admitted with symptomatic spondylolisthesis,lumbar stenosis, status post lumbar decompression and fusion, failed extubation in OR, requiring reintubation. Chest x-ray reported 40% right- sided pneumothorax. Thoravent placed. This morning maintained on mechanical ventilation, FiO2 40%/+5 of PEEP, sedated on diprovan. Chest x-ray reporting right-sided chest tube without pneumothorax redemonstrated, improved inspiration with persistent left basilar acute atelectasis and/or infiltrate.Thoravent ordered to water seal as per pulmonary. Tachycardic. Afebrile, WBC 14.1. Hemoglobin 10.6, platelets 120. Review of Systems Review systems unable to obtain as patient is sedated and on mechanical ventilation. Past Medical History Past Medical History: Asthma, CVA/TIA, Diabetes Mellitus, Eye Disorder, GERD/Reflux, Hyperlipidemia, Hypertension, Myocardial Infarction ([place]), Osteoarthritis (OA), Sleep Apnea/CPAP/BIPAP, Thyroid Disorder Additional Past Medical History / Comment(s): IGA(deficiency) RESPONSE TRIGGERS ASTHMA, LUMBAR DDD, TIA 2012- NO RESIDUAL, USES C-PAP, hiatal hernia, hx kidney stones Last Myocardial Infarction Date:: 09/2005 History of Any Multi-Drug Resistant Organisms: None Reported Past Surgical History: Appendectomy, Breast Surgery, Cholecystectomy, Heart Catheterization, Joint Replacement, Orthopedic Surgery Additional Past Surgical History / Comment(s): LT KNEE ARTHROSCOPY. LT CTR. HX KIDNEY STONE REMOVAL 10/2012, JOSE ALFREDO LASER EYE SURG. PAIN CLINIC PROCEDURES, BREAST BX LT BREAST, jose alfredo knee replacement, lithotripsy 2020, jose alfredo cataracts Past Anesthesia/Blood Transfusion Reactions: No Reported Reaction Past Psychological History: No Psychological Hx Reported Smoking Status: Never smoker Past Alcohol Use History: None Reported Past Drug Use History: None Reported - Past Family History Mother Family Medical History: Cancer Additional Family Medical History / Comment(s): FROM THYROID CA, Father Family Medical History: Cancer Additional Family Medical History / Comment(s): FROM STOMACH CA, HX ALCOHOLISM Medications and Allergies Home Medications Medication Instructions Recorded Confirmed Type Clopidogrel Bisulfate [Clopidogrel] 75 mg PO DAILY 06/10/14 02/11/22 History Meloxicam 7.5 mg PO HS 06/10/14 02/11/22 History Montelukast [Singulair] 10 mg PO HS 10/01/15 02/11/22 History Diltiazem HCl [Diltiazem HCl 24Hr 360 mg PO HS 04/07/16 02/11/22 History ER] Amitriptyline HCl 50 mg PO BID 01/29/19 02/11/22 History Ergocalciferol [Vitamin D2 50,000 unit PO SA 01/29/19 02/11/22 History (DRISDOL)] Atorvastatin [Lipitor] 20 mg PO HS 04/23/20 02/11/22 History Pantoprazole [Protonix] 40 mg PO DAILY 04/23/20 02/11/22 History Isosorbide Mononitrate ER [Imdur] 30 mg PO DAILY 11/08/21 02/11/22 History L.acidoph,Paracasei, B.lactis 1 cap PO DAILY 11/08/21 02/11/22 History [Probiotic] Levothyroxine Sodium [Synthroid] 50 mcg PO DAILY 11/08/21 02/11/22 History sitaGLIPtin [Januvia] 100 mg PO DAILY 11/08/21 02/11/22 History Acetaminophen-Codeine 300-30mg 1 tab PO BID PRN 02/09/22 02/11/22 History [Tylenol w/codeine #3] lisinopriL [Zestril] 5 mg PO DAILY 02/09/22 02/11/22 History Allergies Allergy/AdvReac Type Severity Reaction Status Date / Time levofloxacin [From Levaquin] Allergy Rapid Verified 02/11/22 06:07 Heart Rate Physical Exam Vitals: Vital Signs Temp Pulse Pulse Resp BP BP BP 02/12/22 10:00 124 H 14 02/12/22 09:00 118 H 15 02/12/22 08:00 97.8 F 102 H 14 02/12/22 07:00 105 H 14 02/12/22 06:00 105 H 14 02/12/22 05:00 101 H 14 02/12/22 04:00 97.9 F 98 14 02/12/22 03:00 97 14 02/12/22 02:00 94 14 02/12/22 01:00 96 14 02/12/22 00:00 98 14 02/11/22 23:00 99 14 02/11/22 22:00 98 14 02/11/22 21:37 101 H 14 02/11/22 21:30 102 H 14 02/11/22 21:00 100 14 02/11/22 20:30 100 14 02/11/22 20:00 98.2 F 102 H 14 02/11/22 19:30 103 H 14 02/11/22 19:00 101 H 14 02/11/22 18:30 103 H 14 02/11/22 18:00 104 H 14 02/11/22 17:30 104 H 14 02/11/22 17:00 105 H 14 104/67 02/11/22 16:30 97.8 F 111 H 14 02/11/22 16:16 115 H 14 02/11/22 16:00 103 H 14 114/58 02/11/22 15:45 112 H 14 106/56 02/11/22 15:30 110 H 12 113/56 02/11/22 15:15 100 12 101/50 02/11/22 15:00 88 93/51 02/11/22 14:45 109 H 14 120/57 02/11/22 14:31 1431 F H 115 H 14 120/57 BP Pulse Ox 02/12/22 10:00 100 02/12/22 09:00 97 02/12/22 08:00 97 02/12/22 07:00 97 02/12/22 06:00 96 02/12/22 05:00 95 02/12/22 04:00 96 02/12/22 03:00 95 02/12/22 02:00 95 02/12/22 01:00 96 02/12/22 00:00 96 02/11/22 23:00 96 02/11/22 22:00 95 02/11/22 21:37 95 02/11/22 21:30 95 02/11/22 21:00 96 02/11/22 20:30 96 02/11/22 20:00 95 02/11/22 19:30 96 02/11/22 19:00 96 02/11/22 18:30 96 02/11/22 18:00 96 02/11/22 17:30 95 02/11/22 17:00 95 02/11/22 16:30 95 02/11/22 16:16 94 L 02/11/22 16:00 108/68 02/11/22 15:45 1028/58 99 02/11/22 15:30 108/58 98 02/11/22 15:15 02/11/22 15:00 84 L 02/11/22 14:45 88 L 02/11/22 14:31 92 L Intake and Output 02/11/22 02/12/22 02/12/22 22:59 06:59 14:59 Intake Total 585.979 706.952 348.025 Output Total 1980 1720 925 Balance -1394.021 -1013.048 -576.975 Intake: IV 525 530 300 Sodium Chloride 0.9% 1, 525 530 300 000 ml @ 75 mls/hr IV . [id number] [facility] Rx#:[id number] Intake, IV Titration 60.979 176.952 48.025 Amount propofoL 1,000 mg In 60.979 176.952 48.025 Empty Bag 1 bag @ 5 MCG/ KG/MIN 2.273 mls/hr IV . Q24H [facility] Rx#:[id number] Output: Gastric Drainage 125 Drainage 105 400 Back 100 400 Lower Back 5 Urine 1750 1320 925 Other: Voiding Method Indwelling Catheter Indwelling Catheter Indwelling Catheter Weight 75.75 kg ABP, PAP, CO, CI - Last 8 Hours Arterial Blood Pressure 150/66 Arterial Blood Pressure 133/68 Arterial Blood Pressure 126/48 Arterial Blood Pressure 134/49 Arterial Blood Pressure 134/52 Arterial Blood Pressure 137/58 Arterial Blood Pressure 120/55 Arterial Blood Pressure 125/56 GENERAL: Well developed, well nourished. Sedated and on mechanical ventilation HEENT: Pupils are round and equally reacting to light. EOMI. No scleral icterus. No conjunctival pallor. Normocephalic, atraumatic. No pharyngeal erythema. Intubated, endotracheal tube present. CARDIOVASCULAR: S1 and S2 present. No murmurs, rubs, or gallops. PULMONARY: Chest is clear to auscultation, no wheezing or crackles. Thoravent present. ABDOMEN: Soft, nontender, nondistended, normoactive bowel sounds. No palpable organomegaly. SPINALSURG.SITE: surgical site not seen, weaning trial in progress.Hemovac with small sanguinous drainage. EXTREMITIES: No cyanosis, clubbing, trace pedal edema. NEUROLOGICAL: Unable to assess, sedated and on mechanical ventilation SKIN: Warm and dry, No rashes. Results CBC & Chem 7: 02/12/22 04:35 02/12/22 04:35 Labs: Abnormal Lab Results - Last 24 Hours (Table) 02/04/22 02/11/22 02/11/22 Range/Units 07:57 10:23 10:23 WBC (3.8-10.6) k/uL RBC 3.01 L (3.80-5.40) m/uL Hgb 9.0 L D (11.4-16.0) gm/dL Hct 26.2 L (34.0-46.0) % Plt Count (150-450) k/uL Neutrophils # (1.3-7.7) k/uL ABG pH (7.35-7.45) ABG pCO2 31 L (35-45) mmHg ABG pO2 139 H (83-108) mmHg ABG HCO3 16 L (21-25) mmol/L ABG Total CO2 (19-24) mmol/L ABG O2 Saturation 98.7 H (94-97) % Glucose (74-99) mg/dL POC Glucose (mg/dL) (75-99) mg/dL Hemoglobin A1c (0.0-6.0) % Calcium (8.4-10.2) mg/dL Crossmatch See Detail 02/11/22 02/11/22 02/11/22 Range/Units 13:30 13:30 13:36 WBC 13.0 H (3.8-10.6) k/uL RBC 3.31 L (3.80-5.40) m/uL Hgb 10.1 L (11.4-16.0) gm/dL Hct 28.9 L (34.0-46.0) % Plt Count 131 L (150-450) k/uL Neutrophils # (1.3-7.7) k/uL ABG pH (7.35-7.45) ABG pCO2 30 L (35-45) mmHg ABG pO2 153 H (83-108) mmHg ABG HCO3 17 L (21-25) mmol/L ABG Total CO2 (19-24) mmol/L ABG O2 Saturation 99.0 H (94-97) % Glucose (74-99) mg/dL POC Glucose (mg/dL) 173 H (75-99) mg/dL Hemoglobin A1c (0.0-6.0) % Calcium (8.4-10.2) mg/dL Crossmatch 02/11/22 02/11/22 02/11/22 Range/Units 14:50 15:16 16:20 WBC (3.8-10.6) k/uL RBC (3.80-5.40) m/uL Hgb (11.4-16.0) gm/dL Hct (34.0-46.0) % Plt Count (150-450) k/uL Neutrophils # (1.3-7.7) k/uL ABG pH 7.31 L (7.35-7.45) ABG pCO2 48 H (35-45) mmHg ABG pO2 150 H (83-108) mmHg ABG HCO3 (21-25) mmol/L ABG Total CO2 25 H (19-24) mmol/L ABG O2 Saturation 99.0 H (94-97) % Glucose (74-99) mg/dL POC Glucose (mg/dL) 177 H 183 H (75-99) mg/dL Hemoglobin A1c (0.0-6.0) % Calcium (8.4-10.2) mg/dL Crossmatch 02/11/22 02/11/22 02/11/22 Range/Units 18:25 21:12 23:53 WBC (3.8-10.6) k/uL RBC (3.80-5.40) m/uL Hgb (11.4-16.0) gm/dL Hct (34.0-46.0) % Plt Count (150-450) k/uL Neutrophils # (1.3-7.7) k/uL ABG pH 7.46 H (7.35-7.45) ABG pCO2 (35-45) mmHg ABG pO2 82 L (83-108) mmHg ABG HCO3 27 H (21-25) mmol/L ABG Total CO2 29 H (19-24) mmol/L ABG O2 Saturation 97.4 H (94-97) % Glucose (74-99) mg/dL POC Glucose (mg/dL) 166 H 156 H (75-99) mg/dL Hemoglobin A1c (0.0-6.0) % Calcium (8.4-10.2) mg/dL Crossmatch 02/12/22 02/12/22 02/12/22 Range/Units 04:35 04:35 04:35 WBC 14.1 H (3.8-10.6) k/uL RBC 3.54 L (3.80-5.40) m/uL Hgb 10.6 L (11.4-16.0) gm/dL Hct 30.7 L (34.0-46.0) % Plt Count 120 L (150-450) k/uL Neutrophils # 12.8 H (1.3-7.7) k/uL ABG pH (7.35-7.45) ABG pCO2 (35-45) mmHg ABG pO2 (83-108) mmHg ABG HCO3 (21-25) mmol/L ABG Total CO2 (19-24) mmol/L ABG O2 Saturation (94-97) % Glucose 148 H (74-99) mg/dL POC Glucose (mg/dL) (75-99) mg/dL Hemoglobin A1c 6.3 H (0.0-6.0) % Calcium 7.5 L (8.4-10.2) mg/dL Crossmatch 02/12/22 02/12/22 Range/Units 05:30 06:12 WBC (3.8-10.6) k/uL RBC (3.80-5.40) m/uL Hgb (11.4-16.0) gm/dL Hct (34.0-46.0) % Plt Count (150-450) k/uL Neutrophils # (1.3-7.7) k/uL ABG pH (7.35-7.45) ABG pCO2 (35-45) mmHg ABG pO2 (83-108) mmHg ABG HCO3 27 H (21-25) mmol/L ABG Total CO2 28 H (19-24) mmol/L ABG O2 Saturation 98.4 H (94-97) % Glucose (74-99) mg/dL POC Glucose (mg/dL) 159 H (75-99) mg/dL Hemoglobin A1c (0.0-6.0) % Calcium (8.4-10.2) mg/dL Crossmatch Assessment and Plan Assessment: Chronic back pain secondary to lumbar spine spondylosis ,Status post revision L2 to pelvis decompression fusion, postop pneumothorax with thoravent Right-sided pneumothorax without tension pneumothorax, Thoravent Acute hypoxic respiratory failure secondary to the above, Degenerative joint disease, osteoarthritis. Chronic intermittent asthma CAD, history of [place] History of CVA/TIA GERD Hyperlipidemia Essential hypertension Sleep apnea, CPAP at home. History of IgA deficiency Hypothyroidism Morbid obesity, BMI 33.7 Plan: Continue on current medication regime ,monitoring and symptomatic treatment. Thoravent management, sedation holiday /weaning trial in progress. ICU management as per dipper and baker. The impression and plan of care has been dictated as directed. : I performed a history and examination of this patient, discussed the same with the dictator. I agree with the dictator's note ,documented as a scribe. Any additional findings or plans will be noted.
[2022-02-12] MEDS: HYDROmorphone 0.5 MG/0.5 ML SYRINGE IVP PRN ×3 (14:33→23:43)
--- NOTE | 2022-02-12 15:49 | CT ---
01/13/2022 EXAMINATION TYPE: CT lumbar spine wo con DATE OF EXAM: 02/12/2022 COMPARISON: Correlation MRI 02/17/2021 and radiograph HISTORY: 71-year-old female Post op evaluation, L2-Pelvis. TECHNIQUE: Contiguous axial scanning of the lumbar spine without IV contrast. Coronal and sagittal re constructions performed. CT DLP: 1756.6 mGycm Automated exposure control for dose reduction was used. FINDINGS: There is a small right pleural effusion unit. Cholecystectomy clips. 8 mm left upper pole renal calcu swati. Moderate atherosclerotic calcifications abdominal aorta without aneurysm. Peterson catheter inflate d within the bladder. Minimal diverticular change distal sigmoid Small foci of air within the left lower quadrant subcutaneous adipose layer compatible with subcutane ous injections. Transitional lumbosacral segment is noted as a lumbarized S1. Previous L4-S1 posterior lumbar fusion with fixed grade 2 anterolisthesis L4-L5 and grade 1 anterolis thesis at L5-S1. Diffusion has now been extended up to the L2 level and down to the pelvis. Vertebroplasty cement with in L2. Interbody devices at L2-L3 and L3-L4 show no retropulsion. Vertebral body heights are preserved. Corresponding laminectomies across the surgical levels. Small foci of air within the dorsal epidural space and laminectomy bed. A surgical drain is also present here. On the right, the inferior right pelvic screw violates the lateral iliac cortex displacing a 2.6 cm c ortical fragment laterally. Otherwise, orthopedic hardware appears satisfactory. IMPRESSION: 1. WE NOTE A TRANSITIONAL LUMBOSACRAL SEGMENT DENOTED A LUMBARIZED S1. 2. THE PREVIOUS L4-S1 POSTERIOR LUMBAR FUSION HAS BEEN EXTENDED NOW UP TO THE L2 LEVEL AND DOWN TO TH E PELVIS. VERTEBROPLASTY CEMENT AT L2. WIDE LAMINECTOMIES. SURGICAL DRAIN POSTERIORLY WITH SCATTERED AIR IN THE LAMINECTOMY BED AND DORSAL EPIDURAL SPACE, LIKELY POSTSURGICAL. 3. THE INFERIOR RIGHT PELVIC SCREW VIOLATES THE LATERAL ILIAC CORTEX DISPLACING A 2.6 CM FRAGMENT OF CORTEX LATERALLY. REFER TO AXIAL IMAGE 79. OTHERWISE, THE ORTHOPEDIC HARDWARE IS UNCOMPLICATED. 4. FIXED GRADE 2 ANTEROLISTHESIS L4-L5. FIXED GRADE 1 ANTEROLISTHESIS L5-S1. 5. INCIDENTAL: SMALL RIGHT PLEURAL EFFUSION.
[2022-02-12 17:01] LABS: Glucose,Whole Blood 190 mg/dL (75-99)
[2022-02-12] MEDS: MONTELUKAST 10 MG TAB PO SCH (19:43)
[2022-02-12 22:21] LABS: Glucose,Whole Blood 140 mg/dL (75-99)
[2022-02-12] MEDS: HYDROcodone/APAP 5-325MG 1 EACH TAB PO PRN (22:27)
[2022-02-13] MEDS: ACETAMINOPHEN TAB 325 MG TAB PO SCH ×4 (02:19→17:46)
[2022-02-13 04:22] LABS: Glucose,Whole Blood 153 mg/dL (75-99)
[2022-02-13] MEDS: INSULIN ASPART (NovoLOG) 100 UNIT/ML VIAL SQ SCH ×4 (04:27→22:01)
[2022-02-13] MEDS: LEVOTHYROXINE 50 MCG TAB PO SCH (05:43)
[2022-02-13] MEDS: DEXAMETHASONE SOD PHOSPHATE 4 MG/ML 1 ML VIAL IVP SCH (05:43)
--- NOTE | 2022-02-13 06:32 | XR ---
EXAMINATION TYPE: XR chest 1V portable DATE OF EXAM: 02/13/2022 CLINICAL HISTORY: Difficulty breathing progress study. TECHNIQUE: Single AP portable upright view of the chest is obtained. COMPARISON: Chest x-ray from one day earlier hand older studies. FINDINGS: Interval extubation with removal of endotracheal and orogastric tubes. Interval removal of right internal jugular central venous catheter. Persistent right-sided chest tube or pleural drainag e catheter without visualized pneumothorax. Improved aeration left lung base. Right lung remains clear. Cardiac silhouette size measures within n ormal limits. Osseous structures are intact. IMPRESSION: Persistent right-sided chest tube without pneumothorax redemonstrated. Interval extubatio n noted. Lungs currently clear with improved aeration left lung base noted.
[2022-02-13] MEDS: HYDROcodone/APAP 5-325MG 1 EACH TAB PO PRN (06:41)
[2022-02-13] MEDS: LACTATED RINGERS 1,000 ML IV SCH (08:08)
[2022-02-13] MEDS: SODIUM CHLORIDE 0.9% 1,000 ML IV SCH (08:08)
[2022-02-13] MEDS: GABAPENTIN 300 MG CAP PO SCH ×3 (08:28→22:00)
[2022-02-13] MEDS: PANTOPRAZOLE 40 MG/10 ML VIAL IVP SCH (08:28)
[2022-02-13] MEDS: ENOXAPARIN 40 MG/0.4 ML SYRINGE SQ SCH (08:28)
[2022-02-13 11:48] LABS: Glucose,Whole Blood 148 mg/dL (75-99)
[2022-02-13] MEDS: HYDROmorphone 0.5 MG/0.5 ML SYRINGE IVP PRN (11:50)
--- NOTE | 2022-02-13 13:06 | P.PN ---
Subjective Progress Note Date: 02/13/22 71-year-old female patient, admitted to the intensive care unit after he failed extubation in the operating room. The patient was in the operating room and the patient underwent a lumbar decompression and fusion, as the patient was having symptomatic lumbar stenosis with spondylolisthesis. Postop, the patient was extubated in the operating room. The patient did not tolerate extubation the patient had to be reintubated. I was told that during the intubation process, the patient was found to have some swelling in her upper airways and the cords. The patient was intubated by #7.5 orotracheal tube. This was done by anesthesia and the patient was placed on a mechanical ventilator. At this point in time, the patient assist-control mode at the rate of 14, tidal volume of 450, FiO2 of 35% with a PEEP of 5. The patient was also given a Cordis and a right IJ by anesthesia. The chest exit with her recovery showed a 30-40% pneumothorax on the right. ET tube was in a good location. The cordis was in the right IJ. The most recent blood gases showed a pH of 7.31 with a pCO2 of 48 and pO2 150 and this was done and FiO2 of 100%. As such, the patient was transferred to the intensive care unit. She remained hemodynamically stable and the patient is not showing any hypotension at this point in time. No signs of any tension. The most recent blood work shows a hemoglobin of 10.1 with a white cell count of 13. Past medical history is positive for CAD, obstructive sleep apnea, hypertension, hyperlipidemia, acid reflux, diabetes mellitus and previous history of CVA/TIA and previous history of asthma. Note that the patient utilizes CPAP machine at home. In terms of her sleep apnea, the patient limited on CPAP pressure of 10 cm of water. Her MONI severe the patient carries an AHI of 32.. She has history of hypothyroidism in addition. On 02/12/2022 patient seen in follow-up in intensive care unit, she remains intubated on mechanical ventilator, with assist control mode of ventilation and rate of 14, tidal volume is 450, FiO2 40% and PEEP of 5. This morning's blood gas shows pO2 of 104, pCO2 of 41, and pH is 7.42, this was done on the above- mentioned ventilator settings. Today's chest x-ray shows right-sided chest tube without pneumothorax improved inspiration with persistent left basilar acute atelectasis. Right sided Thoravent in place, connected to Pleuravac, no airleak noted. Patient is currently sedated on the Diprivan and 40 mics per kilo per minute, and maintenance fluids 0.9 normal saline at a rate of 75 ML per hour, no vasoactive drips, hemodynamically patient stable, she is in sinus mechanism with a rate of 114 BPM, blood pressure is 146/64. She is breathing comfortably, she is waking up to voice, she is following simple commands. Denies any distress. No acute issues overnight. Today's labs have been reviewed showing white blood cell count of 14.1, hemoglobin of 10.6, platelet count of 120. Electrolytes and renal profile were within normal limits. Her spinal incision is clean dry and intact, Hemovac is in place compressed and draining small amount of sanguinous output. And is following simple commands, moving all extremities. 02/13/2022, seeing the patient for a follow-up. The patient is extubated yesterday and the patient is doing well. The chest x-ray from today shows adequate expansion of the right lung and there is no evidence of any pneumothorax. The patient is known to have obstructive sleep apnea and she is getting with her her own CPAP unit. No issues with pain. No issues with fever or chills. She is awake and alert patient will go for extremities without any limitation. Pain is under adequate control and the patient utilizing a combination of Kent and Dilaudid IV iron estimated basis. AARON drains are still in place. CAT scan of the lumbar spine was also done and the patient was noted to have essentially postsurgical changes. There was an incidental small right- sided pleural effusion. On today's evaluation, the patient was noted to have some sinus tachycardia. No angina. No palpitation. Using incentive spirometer. Hemoglobin is to be rechecked. Most recent hemoglobin level from yesterday was at 10.6 with a platelet count of 120. Objective - Vital Signs Vital signs: Vital Signs Temp 98.1 F 02/13/22 08:00 Pulse 121 H 02/13/22 08:00 Resp 22 02/13/22 08:00 BP 130/57 02/13/22 08:00 Pulse Ox 93 L 02/13/22 08:00 Intake & Output 02/12/22 02/13/22 02/13/22 18:59 06:59 18:59 Intake Total 948.025 640 Output Total 1545 1275 675 Balance -596.975 -635 -675 Intake: IV 900 640 Sodium Chloride 0.9% 1, 900 640 000 ml @ 75 mls/hr IV . [id number] [facility] Rx#:[id number] Intake, IV Titration 48.025 Amount propofoL 1,000 mg In 48.025 Empty Bag 1 bag @ 5 MCG/ KG/MIN 2.273 mls/hr IV . Q24H [facility] Rx#:[id number] Output: Drainage 280 225 Back 250 200 Lower Back 30 25 Urine 1265 1050 675 Other: Voiding Method Indwelling Catheter Indwelling Catheter Indwelling Catheter ABP, PAP, CO, CI - Last Documented Arterial Blood Pressure 150/60 - Exam GENERAL EXAM: Awake and alert, 71-year-old female, awake and alert and extubated HEAD: Normocephalic/atraumatic. EYES: Normal reaction of pupils, equal size. Conjunctiva pink, sclera white. NOSE: Clear with pink turbinates. THROAT: No erythema or exudates. NECK: No masses, no JVD, no thyroid enlargement, no adenopathy. CHEST: No chest wall deformity. Symmetrical expansion. LUNGS: Equal air entry with no crackles, wheeze, rhonchi or dullness. CVS: Regular rate and rhythm, normal S1 and S2, no gallops, no murmurs, no rubs ABDOMEN: Soft, nontender. No hepatosplenomegaly, normal bowel sounds, no guarding or rigidity. EXTREMITIES: No clubbing, mild generalized edema, no cyanosis, 2+ pulses and upper and lower extremities. MUSCULOSKELETAL: Muscle strength and tone normal. The back drains are still in place and the patient is moving all 4 extremities. SPINE: No scoliosis or deformity SKIN: No rashes CENTRAL NERVOUS SYSTEM: Awake and alert and oriented 3. No focal deficits, tone is normal in all 4 extremities. - Labs CBC & Chem 7: 02/12/22 04:35 02/12/22 04:35 Labs: Abnormal Lab Results - Last 24 Hours (Table) 02/04/22 02/12/22 02/12/22 Range/Units 07:57 17:01 22:18 POC Glucose (mg/dL) 190 H 140 H (75-99) mg/dL Crossmatch See Detail 02/13/22 02/13/22 Range/Units 04:21 11:47 POC Glucose (mg/dL) 153 H 148 H (75-99) mg/dL Crossmatch Assessment and Plan Plan: Assessment: #1. Acute hypoxic respiratory failure, related to possible upper airway edema, and 40% right-sided pneumothorax. Patient had failed extubation and had to be reintubated in the recovery room. Patient does have underlying sleep apnea which likely also contributed to her respiratory failure. This was after the lumbar spine decompression/fusion surgery on 02/11/2022. The right-sided pneumothorax has been decompressed. The patient was extubated in the chest x- ray from today showing no acute abnormalities and there is no evidence of any pneumothorax. #2. Right-sided pneumothorax, status post Thoravent insertion, without tension pneumothorax, on today's chest x-ray 02/12/2022 patient has a right-sided chest tube in place without evidence of pneumothorax. Pleur-evac has no leak. This will be put to waterseal. The chest x-ray from today is showing full expansion of the right lung. #3. Severe obstructive sleep apnea maintained on CPAP therapy on an outpatient basis at a pressure of 10 cm of water followes with the sleep center #4. Chronic back pain related to lumbar spine spondylosis #5. Morbid obesity with BMI of 33.7 #6. Coronary artery disease, currently inactive and stable, last myocardial infarction was in 2017 #7. Hyperlipidemia #8. History of IgA deficiency #9. Hypothyroidism Plan: We'll remove the Thoravent today. Provide the patient incentive spirometer Discontinue the Decadron Utilizing on CPAP overnight Pain control with Kent and Dilaudid on an as-needed basis Extubated successfully Restart home medication including Cardizem 360 mg CD one tablet a day Restart Synthroid Restart Zestril Oral Protonix IV fluids at 75 mL an hour Advance diet as tolerated Surgery to manage the AARON drains from the back Lovenox for DVT prophylaxis Obtain a clearance for Plavix by spine surgeon We'll continue to follow
[2022-02-13] MEDS ORDERED: CYCLOBENZAPRINE 5 MG TAB PO PRN (13:14)
--- NOTE | 2022-02-13 13:37 | P.PN ---
Subjective Progress Note Date: 02/13/22 Principal diagnosis: Neurogenic claudication lumbar pain Patient seen and examined she is doing very well. Nursing at bedside with the patient and she had just gotten out of bed and is now back in bed. She did very well with this. She states some pain in her back but otherwise feels pretty well. Pain in her leg is much better better. She denies any fevers chills shortness of breath or chest pain she denies any perineal numbness tingling. She denies any other bowel or bladder issues. Objective - Vital Signs Vital signs: Vital Signs Temp 98.1 F 02/13/22 08:00 Pulse 121 H 02/13/22 08:00 Resp 22 02/13/22 08:00 BP 130/57 02/13/22 08:00 Pulse Ox 93 L 02/13/22 08:00 Intake & Output 02/12/22 02/13/22 02/13/22 18:59 06:59 18:59 Intake Total 948.025 640 Output Total 1545 1275 675 Balance -596.975 -635 -675 Intake: IV 900 640 Sodium Chloride 0.9% 1, 900 640 000 ml @ 75 mls/hr IV . [id number] [facility] Rx#:[id number] Intake, IV Titration 48.025 Amount propofoL 1,000 mg In 48.025 Empty Bag 1 bag @ 5 MCG/ KG/MIN 2.273 mls/hr IV . Q24H [facility] Rx#:[id number] Output: Drainage 280 225 Back 250 200 Lower Back 30 25 Urine 1265 1050 675 Other: Voiding Method Indwelling Catheter Indwelling Catheter Indwelling Catheter ABP, PAP, CO, CI - Last Documented Arterial Blood Pressure 150/60 - Exam Patient is alert and oriented 3 appears well-nourished well-hydrated is in no acute distress. They do not appear septic. On exam the patient has no tenderness to palpation of her thoracic or lumbar spine. There is no edema or ballottement sign. Lower extremities with 4+/5 strength in all major muscle groups Upper extremities show [5]/5 strength in all major muscle groups. No focal deficits this is just due to deconditioning and surgery [2]/4DTR all UE and LE b/l Patient shows a negative Homans, Plata's, negative Babinski's negative clonus bilaterally. negative straight leg raise bilaterally. No tensioning signs. Cranial nerves II through XII are grossly intact. There is FROM that is painless of the b/l UE and LE in all major joints [w/o pain]. They are intact to light touch sensation in L2 to S1 nerve distribution. Patient has palpable dorsalis pedis was posterior tibial pulses. Compartments are soft and compressible. Dressings are clean dry and intact drain is in place superficial drain has 10 mL out. The drain has 150 mL of serosanguineous drainage. - Labs CBC & Chem 7: 02/12/22 04:35 02/12/22 04:35 Labs: Abnormal Lab Results - Last 24 Hours (Table) 02/04/22 02/12/22 02/12/22 Range/Units 07:57 17:01 22:18 POC Glucose (mg/dL) 190 H 140 H (75-99) mg/dL Crossmatch See Detail 02/13/22 02/13/22 Range/Units 04:21 11:47 POC Glucose (mg/dL) 153 H 148 H (75-99) mg/dL Crossmatch Assessment and Plan Assessment: 71-year-old male postoperative day 2 revision L2 to pelvis decompression fusion postoperative pneumothorax status post thoravent 1. L2-S1 stenosis, severe at L2-L4 2.L2-S1 spondylosis 3. Adjacent Segment Disease L2-L3, L3-L4 4. L3-L4 grade 1 spondylolisthesis 5. S/P L4-S1 decompression and fusion Plan: -Appreciate outplacement consultant and team management. -ICU management appreciated -Activity: Ambulate QID, OOB all meals, up and about, limit lifting bending twisting to less than 5 lbs. Use walker or cane if needed for stability. -Daily PT/OT, increase ambulation strength and balance. -Brace when up and about, not needed in bed or chair -Pain control: Adequate at this time -Meds: reviewed -GI ppx: senna, Miralax -DC flowers when up and about, bedside commode if needed -DVT PPX: OK to restart Heparin tonight. Plavix can be restarted tomorrow -Hygiene: Shower today. Maintain dressing clean and dry. Meticulous cleaning after BMs away from incision site -Drains: Maintain for now. Record output -Encourage IS 10x/hr -CT is reviewed hardware is in good position with good reduction and maintenance of lordosis cages are in place. No evidence of fracture dislocation hardware migration or other Catering factors. -Dispo: Patient would like to go home: P Tuesday we will see how she does with therapy. She would likely need home health care.
[2022-02-13] MEDS: HYDROcodone/APAP 10-325MG 1 EACH TAB PO PRN ×2 (14:18→22:01)
--- NOTE | 2022-02-13 15:26 | P.PN ---
Subjective Progress Note Date: 02/13/22 Principal diagnosis: Lumbar radiculopathy elective surgery, pneumothorax, reintubation This is a 71-year-old female well-known to my practice who presented to the hospital for elective surgery developed a pneumothorax with chest tube placement patient was unable to be extubated postoperatively was able to be extubated late yesterday evening, the lung on the right side has expanded no evidence of any pneumothorax patient has known history of obstructive sleep apnea and currently has her own CPAP unit here in the hospital no pain issues no fever or chills patient awake alert oriented without any limitations Objective - Vital Signs Vital signs: Vital Signs Temp 98.2 F 02/13/22 14:00 Pulse 114 H 02/13/22 14:00 Resp 17 02/13/22 14:00 BP 143/73 02/13/22 14:00 Pulse Ox 94 L 02/13/22 14:00 Intake & Output 02/12/22 02/13/22 02/13/22 18:59 06:59 18:59 Intake Total 948.025 640 Output Total 1545 1275 820 Balance -596.975 -635 -820 Intake: IV 900 640 Sodium Chloride 0.9% 1, 900 640 000 ml @ 75 mls/hr IV . [id number] [facility] Rx#:[id number] Intake, IV Titration 48.025 Amount propofoL 1,000 mg In 48.025 Empty Bag 1 bag @ 5 MCG/ KG/MIN 2.273 mls/hr IV . Q24H [facility] Rx#:[id number] Output: Drainage 280 225 145 Back 250 200 125 Lower Back 30 25 20 Urine 1265 1050 675 Other: Voiding Method Indwelling Catheter Indwelling Catheter Indwelling Catheter ABP, PAP, CO, CI - Last Documented Arterial Blood Pressure 150/60 - Exam General: [Patient awake, alert and oriented times 3. Patient in no acute distress.] HEENT: [PERRL. EOMI. No pharyngeal erythema or exudate.] Neck: [No adenopathy.] Cardiac: [Heart regular in rate and rhythm. No S3. No S4. No clicks, rubs. No murmur.] Lungs: [Clear to auscultation bilaterally.] Abdomen: [No mass. No organomegaly. Bowel sounds presnt and normoactive in all 4 quadrants.] Extremes: [No edema no cyanosis no claudication normal pulses] : Normal female genitalia Musculoskeletal: [No joint erythema, edema or tenderness.] Skin: [No rash.] Neurologic: [No lateralizing deficits. CN II - XII grossly intact.] Lymphatic: [No adenopathy.] - Labs CBC & Chem 7: 02/12/22 04:35 02/12/22 04:35 Labs: Abnormal Lab Results - Last 24 Hours (Table) 02/04/22 02/12/22 02/12/22 Range/Units 07:57 17:01 22:18 POC Glucose (mg/dL) 190 H 140 H (75-99) mg/dL Crossmatch See Detail 02/13/22 02/13/22 Range/Units 04:21 11:47 POC Glucose (mg/dL) 153 H 148 H (75-99) mg/dL Crossmatch Assessment and Plan (1) Acute respiratory failure with hypoxia Current Visit: Yes Status: Acute Code(s): J96.01 - ACUTE RESPIRATORY FAILURE WITH HYPOXIA SNOMED Code(s): 27281777 (2) Fusion of lumbar spine Current Visit: Yes Status: Acute Code(s): M43.26 - FUSION OF SPINE, LUMBAR REGION SNOMED Code(s): 354463640 (3) Pneumothorax on right Current Visit: Yes Status: Acute Code(s): J93.9 - PNEUMOTHORAX, UNSPECIFIED SNOMED Code(s): 567501689 (4) Status post lumbar spine surgery for decompression of spinal cord Current Visit: Yes Status: Acute Code(s): Z98.890 - OTHER SPECIFIED POSTPROCEDURAL STATES SNOMED Code(s): 632396720 (5) Back pain Current Visit: No Status: Acute Code(s): M54.9 - DORSALGIA, UNSPECIFIED SNOMED Code(s): 983312775 (6) Essential (primary) hypertension Current Visit: No Status: Acute Code(s): I10 - ESSENTIAL (PRIMARY) HYPERTENSION SNOMED Code(s): 90160042 (7) H/O Prinzmetal angina Current Visit: No Status: Acute Code(s): Z86.79 - PERSONAL HISTORY OF OTHER DISEASES OF THE CIRCULATORY SYSTEM SNOMED Code(s): 982049837 (8) Hypothyroidism, unspecified Current Visit: No Status: Acute Code(s): E03.9 - HYPOTHYROIDISM, UNSPECIFIED SNOMED Code(s): 64974706 (9) Influenza A Current Visit: No Status: Acute Code(s): J10.1 - FLU DUE TO OTH IDENT INFLUENZA VIRUS W OTH RESP MANIFEST SNOMED Code(s): 547658049 (10) Osteoarthritis of left knee Current Visit: No Status: Acute Priority: Medium Code(s): M17.12 - UNILATERAL PRIMARY OSTEOARTHRITIS, LEFT KNEE SNOMED Code(s): 867557628666572 (11) Pure hypercholesterolemia, unspecified Current Visit: No Status: Acute Code(s): E78.00 - PURE HYPERCHOLESTEROLEMIA, UNSPECIFIED SNOMED Code(s): 258525855 (12) Status post total left knee replacement Current Visit: No Status: Acute Priority: Medium Code(s): Z96.652 - PRESENCE OF LEFT ARTIFICIAL KNEE JOINT SNOMED Code(s): 5818900741921 Plan: Patient status post lumbar laminectomy' Right chest tube placement for right pneumothorax Known sleep apnea Currently using CPAP from home Patient currently stable and beginning to undergo a more normal postoperative process Time with Patient: Greater than 30
[2022-02-13 17:12] LABS: Glucose,Whole Blood 129 mg/dL (75-99)
[2022-02-13 21:22] LABS: Glucose,Whole Blood 159 mg/dL (75-99)
[2022-02-13] MEDS: DILTIAZEM CD 180 MG CAP.ER.24H PO SCH (22:00)
[2022-02-13] MEDS: AMITRIPTYLINE HCL 50 MG TAB PO SCH (22:00)
[2022-02-13] MEDS: ATORVASTATIN 20 MG TAB PO SCH (22:00)
[2022-02-13] MEDS: MONTELUKAST 10 MG TAB PO SCH (22:00)
[2022-02-14] MEDS: SODIUM CHLORIDE 0.9% 1,000 ML IV SCH ×3 (01:15→23:34)
[2022-02-14] MEDS: ACETAMINOPHEN TAB 325 MG TAB PO SCH ×5 (01:15→23:32)
[2022-02-14] MEDS: LEVOTHYROXINE 50 MCG TAB PO SCH (05:05)
[2022-02-14 07:31] LABS: Glucose,Whole Blood 106 mg/dL (75-99)
[2022-02-14] MEDS: INSULIN ASPART (NovoLOG) 100 UNIT/ML VIAL SQ SCH ×4 (07:35→21:30)
[2022-02-14] MEDS: LACTATED RINGERS 1,000 ML IV SCH (07:35)
[2022-02-14] MEDS: HYDROcodone/APAP 5-325MG 1 EACH TAB PO PRN ×2 (08:55→21:29)
[2022-02-14] MEDS: GABAPENTIN 300 MG CAP PO SCH ×3 (08:56→21:29)
[2022-02-14] MEDS: PANTOPRAZOLE 40 MG TABLET PO SCH (08:56)
[2022-02-14] MEDS: AMITRIPTYLINE HCL 50 MG TAB PO SCH ×2 (08:56→21:30)
[2022-02-14] MEDS: lisinopriL 5 MG TAB PO SCH (08:56)
[2022-02-14] MEDS: ENOXAPARIN 40 MG/0.4 ML SYRINGE SQ SCH (08:56)
--- NOTE | 2022-02-14 11:41 | P.PN ---
Subjective Progress Note Date: 02/14/22 Principal diagnosis: Status post [id number] revision decompression with fusion Patient was examined today at bedside, she is resting in her hospital chair. She states that she's doing fairly well today. She has minimal discomfort in her back. Urinary catheter remains intact. Discussed with nursing, there was an issue with retention and initially tried to remove the catheter in the ICU, it has been replaced since then. She states that her legs are feeling better, she's having no numbness or tingling in either leg. She states that her strength also is slightly improved. She has no headaches, lightheadedness, chest pain or shortness of breath. Objective - Vital Signs Vital signs: Vital Signs Temp 97.7 F 02/14/22 05:06 Pulse 108 H 02/14/22 08:50 Resp 16 02/14/22 05:06 BP 124/60 02/14/22 08:50 Pulse Ox 96 02/14/22 08:50 Intake & Output 02/13/22 02/14/22 02/14/22 18:59 06:59 18:59 Intake Total 440 780 Output Total 1345 1160 Balance -905 -380 Intake: IV 200 Sodium Chloride 0.9% 1, 200 000 ml @ 75 mls/hr IV . [id number] [facility] Rx#:[id number] Intake, IV Titration 240 Amount Sodium Chloride 0.9% 1, 240 000 ml @ 75 mls/hr IV . [id number] [facility] Rx#:[id number] Oral 240 540 Output: Drainage 145 60 Back 125 40 Lower Back 20 20 Urine 1200 1100 Other: Voiding Method Indwelling Catheter Indwelling Catheter Indwelling Catheter ABP, PAP, CO, CI - Last Documented Arterial Blood Pressure 150/60 - Exam Gen: AOx3, NAD VSS stable at this time Integument: Surgical dressing remains intact, no obvious drainage. The drains are both intact with minimal output noted today. Palpation: Minimal tenderness with palpation of the midline and paraspinal region of the lower lumbar area ROM: Full range of motion in all major muscle groups of the bilateral upper and lower extremities Sensory Exam: Senory exam to light touch is intact C5-T1 Senosry exam to light touch is intact L2-S1 Motor: 55 strength appreciated in the bilateral upper extremities with shoulder abduction, forward elevation, elbow extension, elbow flexion, wrist extension, wrist flexion, food mixer repairer 45 strength appreciated in the bilateral lower extremities with hip flexion, knee extension, knee flexion, plantar flexion, dorsiflexion, EHL, FHL Reflexes: 2/4 in all UE and LE Negative Yuni's bilaterally, negative Babinski bilaterally, negative clonus bilaterally - Labs CBC & Chem 7: 02/12/22 04:35 02/12/22 04:35 Labs: Abnormal Lab Results - Last 24 Hours (Table) 02/13/22 02/13/22 02/13/22 Range/Units 11:47 17:10 21:21 POC Glucose (mg/dL) 148 H 129 H 159 H (75-99) mg/dL 02/14/22 Range/Units 07:30 POC Glucose (mg/dL) 106 H (75-99) mg/dL Assessment and Plan Assessment: Postoperative day #3 status post [id number] revision decompression with fusion Urinary retention Other medical comorbidities Plan: Dr. Syed was available today also to examine the patient and discussed treatment Due to the urinary retention, the catheter was replaced. A urology consult has been placed for further evaluation and management, recommendations are appreciated Pain control, continue with current medication Continue with daily PT/OT, utilizing LSO brace when up and ambulating, recommend use of a walker at all times with ambulation Encourage incentive spirometer Other medical specialty recommendations Discharge planning: Anticipate discharge in the next day or 2 to home with home health care Time with Patient: Less than 30
[2022-02-14 11:43] LABS: Glucose,Whole Blood 137 mg/dL (75-99)
[2022-02-14] MEDS: TAMSULOSIN 0.4 MG CAP.ER.24H PO SCH (12:37)
[2022-02-14 12:39] LABS: HCT 25.7 % (37.2-46.3); MCH 28.6 pg (27.0-32.0); MCHC 31.1 g/dL (32.0-37.0); MCV 91.8 fL (80.0-97.0); Mean Platelet Volume 12.4 fL (9.5-12.2); NRBC Per 100 WBC 0.2 /100 WBCS (0.0-0.0); Platelet Count 134 X 10*3/uL (140-440); RDW 14.6 % (11.5-14.5); WBC 17.04 X 10*3/uL (4.50-10.00)
--- NOTE | 2022-02-14 16:46 | P.PN ---
Subjective Progress Note Date: 02/14/22 71-year-old female patient, admitted to the intensive care unit after he failed extubation in the operating room. The patient was in the operating room and the patient underwent a lumbar decompression and fusion, as the patient was having symptomatic lumbar stenosis with spondylolisthesis. Postop, the patient was extubated in the operating room. The patient did not tolerate extubation the patient had to be reintubated. I was told that during the intubation process, the patient was found to have some swelling in her upper airways and the cords. The patient was intubated by #7.5 orotracheal tube. This was done by anesthesia and the patient was placed on a mechanical ventilator. At this point in time, the patient assist-control mode at the rate of 14, tidal volume of 450, FiO2 of 35% with a PEEP of 5. The patient was also given a Cordis and a right IJ by anesthesia. The chest exit with her recovery showed a 30-40% pneumothorax on the right. ET tube was in a good location. The cordis was in the right IJ. The most recent blood gases showed a pH of 7.31 with a pCO2 of 48 and pO2 150 and this was done and FiO2 of 100%. As such, the patient was transferred to the intensive care unit. She remained hemodynamically stable and the patient is not showing any hypotension at this point in time. No signs of any tension. The most recent blood work shows a hemoglobin of 10.1 with a white cell count of 13. Past medical history is positive for CAD, obstructive sleep apnea, hypertension, hyperlipidemia, acid reflux, diabetes mellitus and previous history of CVA/TIA and previous history of asthma. Note that the patient utilizes CPAP machine at home. In terms of her sleep apnea, the patient limited on CPAP pressure of 10 cm of water. Her MONI severe the patient carries an AHI of 32.. She has history of hypothyroidism in addition. On 02/12/2022 patient seen in follow-up in intensive care unit, she remains intubated on mechanical ventilator, with assist control mode of ventilation and rate of 14, tidal volume is 450, FiO2 40% and PEEP of 5. This morning's blood gas shows pO2 of 104, pCO2 of 41, and pH is 7.42, this was done on the above- mentioned ventilator settings. Today's chest x-ray shows right-sided chest tube without pneumothorax improved inspiration with persistent left basilar acute atelectasis. Right sided Thoravent in place, connected to Pleuravac, no airleak noted. Patient is currently sedated on the Diprivan and 40 mics per kilo per minute, and maintenance fluids 0.9 normal saline at a rate of 75 ML per hour, no vasoactive drips, hemodynamically patient stable, she is in sinus mechanism with a rate of 114 BPM, blood pressure is 146/64. She is breathing comfortably, she is waking up to voice, she is following simple commands. Denies any distress. No acute issues overnight. Today's labs have been reviewed showing white blood cell count of 14.1, hemoglobin of 10.6, platelet count of 120. Electrolytes and renal profile were within normal limits. Her spinal incision is clean dry and intact, Hemovac is in place compressed and draining small amount of sanguinous output. And is following simple commands, moving all extremities. 02/13/2022, seeing the patient for a follow-up. The patient is extubated yesterday and the patient is doing well. The chest x-ray from today shows adequate expansion of the right lung and there is no evidence of any pneumothorax. The patient is known to have obstructive sleep apnea and she is getting with her her own CPAP unit. No issues with pain. No issues with fever or chills. She is awake and alert patient will go for extremities without any limitation. Pain is under adequate control and the patient utilizing a combination of Patterson and Dilaudid IV iron estimated basis. AARON drains are still in place. CAT scan of the lumbar spine was also done and the patient was noted to have essentially postsurgical changes. There was an incidental small right- sided pleural effusion. On today's evaluation, the patient was noted to have some sinus tachycardia. No angina. No palpitation. Using incentive spirometer. Hemoglobin is to be rechecked. Most recent hemoglobin level from yesterday was at 10.6 with a platelet count of 120. 02/14/2022 the patient is doing well. The patient has no breathing difficulties. The Thoravent has been removed. The patient is currently on room air oxygen. She is trying to sit up on a chair. AARON drains are still in place. White cell count of 17 with a hemoglobin of 8.0. Using incentive spirometer. Overnight, she is using the CPAP. No other significant events overnight. No altered mentation. No cough. No wheezing. No change in her voice sandi cteristics or hoarseness. No hemodynamic changes. Objective - Vital Signs Vital signs: Vital Signs Temp 97.5 F L 02/14/22 12:03 Pulse 76 02/14/22 12:03 Resp 18 02/14/22 12:03 BP 111/57 02/14/22 12:03 Pulse Ox 99 02/14/22 12:03 Intake & Output 02/13/22 02/14/22 02/14/22 18:59 06:59 18:59 Intake Total 440 780 Output Total 1345 1160 Balance -905 -380 Intake: IV 200 Sodium Chloride 0.9% 1, 200 000 ml @ 75 mls/hr IV . [id number] [facility] Rx#:[id number] Intake, IV Titration 240 Amount Sodium Chloride 0.9% 1, 240 000 ml @ 75 mls/hr IV . [id number] [facility] Rx#:[id number] Oral 240 540 Output: Drainage 145 60 Back 125 40 Lower Back 20 20 Urine 1200 1100 Other: Voiding Method Indwelling Catheter Indwelling Catheter Indwelling Catheter ABP, PAP, CO, CI - Last Documented Arterial Blood Pressure 150/60 - Exam GENERAL EXAM: Awake and alert, 71-year-old female, awake and alert and patient is currently on room air oxygen. HEAD: Normocephalic/atraumatic. EYES: Normal reaction of pupils, equal size. Conjunctiva pink, sclera white. NOSE: Clear with pink turbinates. THROAT: No erythema or exudates. NECK: No masses, no JVD, no thyroid enlargement, no adenopathy. CHEST: No chest wall deformity. Symmetrical expansion. LUNGS: Equal air entry with no crackles, wheeze, rhonchi or dullness. The Thoravent has been removed CVS: Regular rate and rhythm, normal S1 and S2, no gallops, no murmurs, no rubs ABDOMEN: Soft, nontender. No hepatosplenomegaly, normal bowel sounds, no guar ding or rigidity. EXTREMITIES: No clubbing, mild generalized edema, no cyanosis, 2+ pulses and upper and lower extremities. MUSCULOSKELETAL: Muscle strength and tone normal. The back drains are still in place and the patient is moving all 4 extremities. SPINE: No scoliosis or deformity SKIN: No rashes CENTRAL NERVOUS SYSTEM: Awake and alert and oriented 3. No focal deficits, tone is normal in all 4 extremities. - Labs CBC & Chem 7: 02/14/22 06:29 02/12/22 04:35 Labs: Abnormal Lab Results - Last 24 Hours (Table) 02/13/22 02/13/22 02/14/22 Range/Units 17:10 21:21 06:29 WBC 17.04 H (4.50-10.00) X 10*3/uL RBC 2.80 L (4.10-5.20) X 10*6/uL Hgb 8.0 L (12.0-15.0) g/dL Hct 25.7 L (37.2-46.3) % MCHC 31.1 L (32.0-37.0) g/dL RDW 14.6 H (11.5-14.5) % Plt Count 134 L (140-440) X 10*3/uL MPV 12.4 H (9.5-12.2) fL Absolute Nucleated RBC 0.03 H (0.00-0.00) X 10*3/uL NRBC/100 WBC Diff 0.2 H (0.0-0.0) /100 WBCS POC Glucose (mg/dL) 129 H 159 H (75-99) mg/dL 02/14/22 02/14/22 Range/Units 07:30 11:35 WBC (4.50-10.00) X 10*3/uL RBC (4.10-5.20) X 10*6/uL Hgb (12.0-15.0) g/dL Hct (37.2-46.3) % MCHC (32.0-37.0) g/dL RDW (11.5-14.5) % Plt Count (140-440) X 10*3/uL MPV (9.5-12.2) fL Absolute Nucleated RBC (0.00-0.00) X 10*3/uL NRBC/100 WBC Diff (0.0-0.0) /100 WBCS POC Glucose (mg/dL) 106 H 137 H (75-99) mg/dL Assessment and Plan Plan: Assessment: #1. Acute hypoxic respiratory failure, related to possible upper airway edema, and 40% right-sided pneumothorax. Patient has been extubated. Thoravent has been removed. Pneumothorax recovered. Patient is currently on room air oxygen. #2. Right-sided pneumothorax, status post Thoravent insertion, without tension pneumothorax, on today's chest x-ray 02/12/2022 patient has a right-sided chest tube in place without evidence of pneumothorax. Pleur-evac has no leak. This will be put to waterseal. The chest x-ray from today is showing full expansion of the right lung. The Thoravent was removed and the patient has a currently asymptomatic #3. Severe obstructive sleep apnea maintained on CPAP therapy on an outpatient basis at a pressure of 10 cm of water followes with the sleep center #4. Chronic back pain related to lumbar spine spondylosis #5. Morbid obesity with BMI of 33.7 #6. Coronary artery disease, currently inactive and stable, last myocardial infarction was in 2017 #7. Hyperlipidemia #8. History of IgA deficiency #9. Hypothyroidism Plan: Pulmonary status is stable No respiratory difficulties Patient on Lovenox for the prophylaxis The Thoravent has been removed Pain control with Patterson and Dilaudid on an as-needed basis Extubated successfully Cardizem 360 mg CD one tablet a day Restart Synthroid Restart Zestril Oral Protonix IV fluids at 75 mL an hour Advance diet as tolerated Surgery to manage the AARON drains from the back We'll see the patient on an as-needed basis
[2022-02-14 17:39] LABS: Glucose,Whole Blood 121 mg/dL (75-99)
[2022-02-14 20:22] LABS: Glucose,Whole Blood 155 mg/dL (75-99)
[2022-02-14] MEDS: DILTIAZEM CD 180 MG CAP.ER.24H PO SCH (21:29)
[2022-02-14] MEDS: MONTELUKAST 10 MG TAB PO SCH (21:29)
[2022-02-14] MEDS: ATORVASTATIN 20 MG TAB PO SCH (21:30)
[2022-02-15] MEDS: LACTATED RINGERS 1,000 ML IV SCH ×2 (00:36→23:51)
[2022-02-15] MEDS: ACETAMINOPHEN TAB 325 MG TAB PO SCH ×4 (05:40→23:50)
[2022-02-15] MEDS: LEVOTHYROXINE 50 MCG TAB PO SCH (05:40)
[2022-02-15 07:32] LABS: Glucose,Whole Blood 102 mg/dL (75-99)
--- NOTE | 2022-02-15 07:33 | P.GSCN ---
History of Present Illness Consult date: 02/15/22 History of present illness: 71-year-old female who we are asked to see for postoperative urinary retention. On 02/11/22 the patient underwent a decompressive laminectomy. She had a perioperative pneumothorax and required a short stay in the intensive care unit as well as a chest tube. The patient had an intraoperative Peterson catheter. The catheters removed in the ICU but she failed a voiding trial. The patient is interviewed at the bedside awake alert and recently comfortable this point in time. The patient does not remember the ICU visit very well. She does not remember the urine retention understandably. Urologically the patient states that prior to her recent back surgery she was having problems with slowing urinary stream and incomplete bladder emptying of notable volume. The surgery she had notable back pain as well as lower extremity weakness and numbness that seems to be for the most part gone. She does feel the catheter at this point in time. There is not any history of incontinence. She did not have any major bowel issues preoperatively. The catheter is draining [id number] urine at this point in time. The patient has multiple medical illnesses. She also has a history kidney stones. Review of Systems All systems: negative - Constitutional Denies fever, Denies weight loss - EENT Eyes: denies blurred vision Ears, nose, mouth and throat: Denies dysphagia - Cardiovascular Denies chest pain, Denies shortness of breath - Respiratory Denies cough, Denies 7 - Gastrointestinal Reports as per HPI - Genitourinary Genitourinary: Denies dysuria, Denies hematuria - Integumentary Denies rash, Denies unusual bruising - Neurological Denies headaches, Denies syncope - Hematologic/Lymphatic Denies easy bleeding, Denies easy bruising Past Medical History Past Medical History: Asthma, CVA/TIA, Diabetes Mellitus, Eye Disorder, GERD/Reflux, Hyperlipidemia, Hypertension, Myocardial Infarction (AR), Osteoarthritis (OA), Sleep Apnea/CPAP/BIPAP, Thyroid Disorder Additional Past Medical History / Comment(s): IGA(deficiency) RESPONSE TRIGGERS ASTHMA, LUMBAR DDD, TIA 2012- NO RESIDUAL, USES C-PAP, hiatal hernia, hx kidney stones Last Myocardial Infarction Date:: 09/2005 History of Any Multi-Drug Resistant Organisms: None Reported Past Surgical History: Appendectomy, Breast Surgery, Cholecystectomy, Heart Catheterization, Joint Replacement, Orthopedic Surgery Additional Past Surgical History / Comment(s): LT KNEE ARTHROSCOPY. LT CTR. HX KIDNEY STONE REMOVAL 10/2012, [facility] LASER EYE SURG. PAIN CLINIC PROCEDURES, BREAST BX LT BREAST, jose alfredo knee replacement, lithotripsy 2020, jose alfredo cataracts Past Anesthesia/Blood Transfusion Reactions: No Reported Reaction Past Psychological History: No Psychological Hx Reported Smoking Status: Never smoker Past Alcohol Use History: None Reported Past Drug Use History: None Reported - Past Family History Mother Family Medical History: Cancer Additional Family Medical History / Comment(s): FROM THYROID CA, Father Family Medical History: Cancer Additional Family Medical History / Comment(s): FROM STOMACH CA, HX ALCOHOLISM Medications and Allergies Home Medications Medication Instructions Recorded Confirmed Type Clopidogrel Bisulfate [Clopidogrel] 75 mg PO DAILY 06/10/14 02/11/22 History Meloxicam 7.5 mg PO HS 06/10/14 02/11/22 History Montelukast [Singulair] 10 mg PO HS 10/01/15 02/11/22 History Diltiazem HCl [Diltiazem HCl 24Hr 360 mg PO HS 04/07/16 02/11/22 History ER] Amitriptyline HCl 50 mg PO BID 01/29/19 02/11/22 History Ergocalciferol [Vitamin D2 50,000 unit PO SA 01/29/19 02/11/22 History (DRISDOL)] Atorvastatin [Lipitor] 20 mg PO HS 04/23/20 02/11/22 History Pantoprazole [Protonix] 40 mg PO DAILY 04/23/20 02/11/22 History Isosorbide Mononitrate ER [Imdur] 30 mg PO DAILY 11/08/21 02/11/22 History L.acidoph,Paracasei, B.lactis 1 cap PO DAILY 11/08/21 02/11/22 History [Probiotic] Levothyroxine Sodium [Synthroid] 50 mcg PO DAILY 11/08/21 02/11/22 History sitaGLIPtin [Januvia] 100 mg PO DAILY 11/08/21 02/11/22 History Acetaminophen-Codeine 300-30mg 1 tab PO BID PRN 02/09/22 02/11/22 History [Tylenol w/codeine #3] lisinopriL [Zestril] 5 mg PO DAILY 02/09/22 02/11/22 History Allergies Allergy/AdvReac Type Severity Reaction Status Date / Time levofloxacin [From Levaquin] Allergy Rapid Verified 02/11/22 06:07 Heart Rate Surgical - Exam Vital Signs Temp Pulse BP Pulse Ox 97.5 F L 96 136/59 93 L 02/11/22 06:30 02/11/22 06:30 02/11/22 06:30 02/11/22 06:30 - General well developed, well nourished, no distress - Eyes PERRL - ENT no hearing loss - Neck trachea midline - Respiratory normal expansion, normal respiratory effort - Cardiovascular Rhythm: regular - Abdomen Abdomen: soft, non tender - Genitourinary Indwelling catheter - Integumentary no rash, no growths - Neurologic normal coordination, normal sensation - Musculoskeletal Normal movement of her lower extremities with good strength normal posture - Psychiatric oriented to time, oriented to person, oriented to place, speech is normal, memory intact Results - Labs 02/14/22 06:29 02/12/22 04:35 Abnormal Lab Results - Last 24 Hours (Table) 02/14/22 02/14/22 02/14/22 Range/Units 06:29 07:30 11:35 WBC 17.04 H (4.50-10.00) X 10*3/uL RBC 2.80 L (4.10-5.20) X 10*6/uL Hgb 8.0 L (12.0-15.0) g/dL Hct 25.7 L (37.2-46.3) % MCHC 31.1 L (32.0-37.0) g/dL RDW 14.6 H (11.5-14.5) % Plt Count 134 L (140-440) X 10*3/uL MPV 12.4 H (9.5-12.2) fL Absolute Nucleated RBC 0.03 H (0.00-0.00) X 10*3/uL NRBC/100 WBC Diff 0.2 H (0.0-0.0) /100 WBCS POC Glucose (mg/dL) 106 H 137 H (75-99) mg/dL 02/14/22 02/14/22 Range/Units 17:38 20:21 WBC (4.50-10.00) X 10*3/uL RBC (4.10-5.20) X 10*6/uL Hgb (12.0-15.0) g/dL Hct (37.2-46.3) % MCHC (32.0-37.0) g/dL RDW (11.5-14.5) % Plt Count (140-440) X 10*3/uL MPV (9.5-12.2) fL Absolute Nucleated RBC (0.00-0.00) X 10*3/uL NRBC/100 WBC Diff (0.0-0.0) /100 WBCS POC Glucose (mg/dL) 121 H 155 H (75-99) mg/dL Assessment and Plan Assessment: Impression: This operative urinary retention from a lumbar decompression. Multiple medical illnesses. Postoperative pneumothorax Recommendations: The patient did have some voiding dysfunction preoperatively based on her history probably related to her back problems however seems to have subsided symptomatically. The patient is now since in the catheter. I suspect the urine retention with situational associated with the perioperative sedation, immobility and the pneumothorax. We will remove the catheter for voiding trial. I suspect she'll void without difficulty. If she does not she should go home with the catheter and when she is more ambulatory we can try the catheter out again for voiding trial.
[2022-02-15] MEDS: INSULIN ASPART (NovoLOG) 100 UNIT/ML VIAL SQ SCH ×4 (07:38→22:17)
[2022-02-15] MEDS: ENOXAPARIN 40 MG/0.4 ML SYRINGE SQ SCH (08:16)
[2022-02-15] MEDS: AMITRIPTYLINE HCL 50 MG TAB PO SCH ×2 (08:16→20:57)
[2022-02-15] MEDS: GABAPENTIN 300 MG CAP PO SCH ×3 (08:17→22:17)
[2022-02-15] MEDS: lisinopriL 5 MG TAB PO SCH (08:17)
[2022-02-15] MEDS: PANTOPRAZOLE 40 MG TABLET PO SCH (08:17)
[2022-02-15] MEDS: TAMSULOSIN 0.4 MG CAP.ER.24H PO SCH (08:17)
[2022-02-15] MEDS: HYDROcodone/APAP 5-325MG 1 EACH TAB PO PRN ×2 (08:25→20:42)
--- NOTE | 2022-02-15 08:52 | XR ---
EXAMINATION TYPE: XR chest 1V portable DATE OF EXAM: 02/15/2022 Comparison: 02/13/2022 Clinical History: 71-year-old female follow up right pneumothorax Findings: Heart normal size. Aorta and pulmonary vasculature within normal limits. Mild interstitial prominence is unchanged. The right-sided Thoravent catheter has been removed in the interval. No appreciable pn eumothorax. No consolidation or pleural effusion. Impression: Interval removal of right-sided Thoravent catheter. No appreciable pneumothorax or other acute proces s seen.
--- NOTE | 2022-02-15 09:00 | CDI ---
Documentation Clarification Form Date: 02/15/2022 08:48:31 AM From: Nidia OrtizPATRICIA, CCDS Admit Date: 02/11/2022 03:16:00 PM Patient Name: Nidia Greene Visit Number: [id number] Discharge Date: ATTENTION: The Clinical Documentation Specialists (CDI) and [facility] Coding Staff appreciate your assistance in clarifying documentation. Please respond to the clarification below the line at the bottom and electronically sign. The CDI & [facility] Coding staff will review the response and follow-up if needed. Please note: Queries are made part of the Legal Health Record. If you have any questions, please contact the author of this message via ITS. Dr. Hiram Cevallos: The patient is diagnosed with urinary retention status post a spinal fusion. The following is documented in the 02/15 Urology Consultation: The patient did have some voiding dysfunction preoperatively based on her history probably related to her back problems however seems to have subsided symptomatically. The patient is now since in the catheter. I suspect the urine retention with situational associated with the perioperative sedation, immobility and the pneumothorax. We will remove the catheter for voiding trial. Additional clarification is requested regarding the relationship, if any, that exists between the diagnosis and the procedure. Patients 02/11 Admitting Diagnosis: L2-S1 Stenosis, Severe at L3-L4. L2-S1 Spondylosis. Adjacent Segment Disease L2-L3, L3-L4. L3-L4 grade 1 spondylolisthesis. s/p L4-S1 decompression & fusion. Post-Operative Diagnosis: Same pending final OR note. Procedure performed: L2-Pelvis Revision Decompression & Fusion (Pending final OR note) History/Risk Factors per the 02/11 Ortho Spine H/P: Asthma, TIA, DM, GERD, Hyperlipidemia, Hypertension, [place], Osteoarthritis, Sleep apnea, Thyroid Disorder, IGA deficiency, Lumbar DD. Clinical Indicators: Presented for elective re vision of spinal fusion. Postoperatively the patient failed extubation in the OR, was re-intubated, transferred to ICU, developed a pneumothorax attributed to obesity and sleep apnea. Developed urinary retention requiring Peterson catheter & failed voiding trial . Treatment 02/11: I Lasix 20 mg x1, IV Cefazolin 100 mls/hr q8H, IV Decadron 4 mg q6H 02/14: Flomax 0.4 mg po. , Peterson catheter discontinued 02/15 for voiding trial. What relationship, if any, exists between the diagnosis of Urinary Retention and the procedure: [ ] Urinary Retention is a complication of surgical procedure [ ] Urinary Retention is an expected outcome of the surgical procedure [ ] Urinary Retention is related to patients co-morbid condition(s), please specify: & not a complication of the procedure [ ] Other please specify: [ ] Unable to determine (Template Last Revised: January 2021) The urine retention is due to both perioperative morbidity as well as spinal cord issues. MTDD
--- NOTE | 2022-02-15 09:15 | P.PN ---
Subjective Progress Note Date: 02/15/22 Principal diagnosis: Status post [id number] revision decompression with fusion Patient seen and examined today. The patient was sitting up in bed eating her breakfast. She states that she is doing well today. Patient states her pain is managed under current regimen. She states that the numbness and tingling that she had to her right lower extremity prior to surgery has greatly improved. Surgical incision to the lumbar region was assessed; AARON drain with an output of 20ml and Hemovac drain with an output of 90 mL were removed and all dressings have been changed today. Dr. España was present during assessment and stated to patient that she will have a follow-up chest x-ray today and if everything is clear that thoravent to the right chest wall will be removed. Flowers catheter is still present; discussed with patient that the nursing will do a voiding trial and if she is still retaining she will be discharged home with the catheter and follow up with Dr. Cevallos's office outpatient. Patient verbalizes understanding. Patient denies any chest pain, shortness of breath, or nausea/vomiting. Objective - Vital Signs Vital signs: Vital Signs Temp 99.4 F 02/15/22 04:15 Pulse 98 02/15/22 04:15 Resp 16 02/15/22 04:15 BP 95/46 02/15/22 04:15 Pulse Ox 91 L 02/15/22 04:15 Intake & Output 02/14/22 02/15/22 02/15/22 18:59 06:59 18:59 Intake Total 700 890 Output Total 1325 1025 Balance 700 -435 -1025 Intake: IV 600 240 Sodium Chloride 0.9% 1, 600 240 000 ml @ 75 mls/hr IV . [id number] [facility] Rx#:[id number] Intake, IV Titration 100 50 Amount ceFAZolin 2 gm In Sodium 100 50 Chloride 0.9% 50 ml @ 100 mls/hr IVPB Q8HR [facility] Rx# :[id number] Oral 600 Output: Drainage 125 Back 90 Lower Back 35 Urine 1200 1025 Uretheral (Flowers) 1025 Other: Voiding Method Indwelling Catheter Indwelling Catheter ABP, PAP, CO, CI - Last Documented Arterial Blood Pressure 150/60 - Exam Physical Examination General: The patient is awake and alert, in no acute distress Skin: Skin is warm and dry with no obvious rashes or lesions. Hairy patches absent, no dorsal skin dimples, and no cafe au lait spots. There is a midline incision to the lumbar region, hemovac and AARON drain have been removed. Eye: Pupils are equal, round and reactive to light, extra-ocular movements are intact; there is normal conjunctiva bilaterally. Neck: The neck is supple, there is no tenderness and ROM intact. Cardiovascular: There is a regular rate and rhythm. No murmur, rub or gallop is appreciated. Respiratory: Lungs are clear to auscultation, respirations are non-labored, breath sounds are equal, thoravent present in right chest wall. Gastrointestinal: Soft, non-distended, non-tender abdomen. Back: There is mild tenderness to palpation in the midline, paralumbar region. There is no obvious deformity. Musculoskeletal: ROM limited secondary to pain and stiffness from surgical procedure. Shoulder abduction 5/5, elbow flexors 5/5, wrist dorsiflexors 5/5. finger abductor 5/5, high school agriculture teacher 5/5, hip flexor 4/5, knee flexor 4/5, ankle dorsiflexor 4/5, ankle plantarflexion 4/5 and extensor hallucis 4/5. Neurological: CN 2-12 intact. There are no obvious motor or sensory deficits. Movement and coordination equal and intact. Sensory exam to light touch intact C5-T1 and intact from L2-S1. Reflexes 2/4 in bilateral upper and lower extremities. Negative Hoffmans, babinski, and clonus signs. Psychiatric: Cooperative, appropriate mood & affect, normal judgment. - Labs CBC & Chem 7: 02/14/22 06:29 02/12/22 04:35 Labs: Abnormal Lab Results - Last 24 Hours (Table) 02/14/22 02/14/22 02/14/22 Range/Units 06:29 11:35 17:38 WBC 17.04 H (4.50-10.00) X 10*3/uL RBC 2.80 L (4.10-5.20) X 10*6/uL Hgb 8.0 L (12.0-15.0) g/dL Hct 25.7 L (37.2-46.3) % MCHC 31.1 L (32.0-37.0) g/dL RDW 14.6 H (11.5-14.5) % Plt Count 134 L (140-440) X 10*3/uL MPV 12.4 H (9.5-12.2) fL Absolute Nucleated RBC 0.03 H (0.00-0.00) X 10*3/uL NRBC/100 WBC Diff 0.2 H (0.0-0.0) /100 WBCS POC Glucose (mg/dL) 137 H 121 H (75-99) mg/dL 02/14/22 02/15/22 Range/Units 20:21 07:31 WBC (4.50-10.00) X 10*3/uL RBC (4.10-5.20) X 10*6/uL Hgb (12.0-15.0) g/dL Hct (37.2-46.3) % MCHC (32.0-37.0) g/dL RDW (11.5-14.5) % Plt Count (140-440) X 10*3/uL MPV (9.5-12.2) fL Absolute Nucleated RBC (0.00-0.00) X 10*3/uL NRBC/100 WBC Diff (0.0-0.0) /100 WBCS POC Glucose (mg/dL) 155 H 102 H (75-99) mg/dL Assessment and Plan Assessment: Postop day 4: Status post [id number] revision decompression with fusion Post surgical urinary retention Plan: I reviewed and discussed the case with my attending Dr. Syed, he has had a chance to review the chart and films and we have decided to proceed as outlined below. Plan: -Appreciate change consultant and team management. -Activity: Ambulate QID, OOB all meals, up and about, limit lifting bending twisting to less than 5 lbs. Use walker or cane if needed for stability. -Daily PT/OT, increase ambulation strength and balance. -Brace when up and about, not needed in bed or chair -Pain control: Adequate at this time -Meds: reviewed -GI ppx: senna, Miralax -DC flowers for trial void and if patient retains place flowers and remains at d/c, per Dr. Cevallos. -DVT PPX: Lovenox -Hygiene: Shower today. Maintain dressing clean and dry. Meticulous cleaning after BMs away from incision site -Drains: AARON and Hemovac removed today -Encourage IS 10x/hr -Dispo: Anticipate Home tomorrow 02/16/22 with home care. I have personally seen and examined the patient, performed the documentation and the assessment and plan as written. Number of minutes spent on the visit: [20 ]. Time with Patient: Less than 30
--- NOTE | 2022-02-15 11:09 | P.PN ---
Subjective Progress Note Date: 02/15/22 71-year-old female patient, admitted to the intensive care unit after he failed extubation in the operating room. The patient was in the operating room and the patient underwent a lumbar decompression and fusion, as the patient was having symptomatic lumbar stenosis with spondylolisthesis. Postop, the patient was extubated in the operating room. The patient did not tolerate extubation the patient had to be reintubated. I was told that during the intubation process, the patient was found to have some swelling in her upper airways and the cords. The patient was intubated by #7.5 orotracheal tube. This was done by anesthesia and the patient was placed on a mechanical ventilator. At this point in time, the patient assist-control mode at the rate of 14, tidal volume of 450, FiO2 of 35% with a PEEP of 5. The patient was also given a Cordis and a right IJ by anesthesia. The chest exit with her recovery showed a 30-40% pneumothorax on the right. ET tube was in a good location. The cordis was in the right IJ. The most recent blood gases showed a pH of 7.31 with a pCO2 of 48 and pO2 150 and this was done and FiO2 of 100%. As such, the patient was transferred to the intensive care unit. She remained hemodynamically stable and the patient is not showing any hypotension at this point in time. No signs of any tension. The most recent blood work shows a hemoglobin of 10.1 with a white cell count of 13. Past medical history is positive for CAD, obstructive sleep apnea, hypertension, hyperlipidemia, acid reflux, diabetes mellitus and previous history of CVA/TIA and previous history of asthma. Note that the patient utilizes CPAP machine at home. In terms of her sleep apnea, the patient limited on CPAP pressure of 10 cm of water. Her MONI severe the patient carries an AHI of 32.. She has history of hypothyroidism in addition. On 02/12/2022 patient seen in follow-up in intensive care unit, she remains intubated on mechanical ventilator, with assist control mode of ventilation and rate of 14, tidal volume is 450, FiO2 40% and PEEP of 5. This morning's blood gas shows pO2 of 104, pCO2 of 41, and pH is 7.42, this was done on the above- mentioned ventilator settings. Today's chest x-ray shows right-sided chest tube without pneumothorax improved inspiration with persistent left basilar acute atelectasis. Right sided Thoravent in place, connected to Pleuravac, no airleak noted. Patient is currently sedated on the Diprivan and 40 mics per kilo per minute, and maintenance fluids 0.9 normal saline at a rate of 75 ML per hour, no vasoactive drips, hemodynamically patient stable, she is in sinus mechanism with a rate of 114 BPM, blood pressure is 146/64. She is breathing comfortably, she is waking up to voice, she is following simple commands. Denies any distress. No acute issues overnight. Today's labs have been reviewed showing white blood cell count of 14.1, hemoglobin of 10.6, platelet count of 120. Electrolytes and renal profile were within normal limits. Her spinal incision is clean dry and intact, Hemovac is in place compressed and draining small amount of sanguinous output. And is following simple commands, moving all extremities. On 02/15/2022 patient seen in follow-up on medical oncology floor, she is resting comfortably in bed, breathing comfortably, denies any chest pain, denies any shortness of breath no cough, vital signs have been stable, room air pulse ox is 97%, patient did wear her CPAP unit from home. Yesterday the right-sided Thoravent was removed, today's follow-up chest x-ray shows interval removal of right-sided Thoravent catheter, no appreciable pneumothorax or other acute process was seen. Orthopedic surgery is following, Peterson catheter is removed, and AARON drain will be removed. Surgical incision to the lumbar region clean dry and intact. Objective - Vital Signs Vital signs: Vital Signs Temp 99.4 F 02/15/22 04:15 Pulse 98 02/15/22 04:15 Resp 16 02/15/22 04:15 BP 95/46 02/15/22 04:15 Pulse Ox 91 L 02/15/22 04:15 Intake & Output 02/14/22 02/15/22 02/15/22 18:59 06:59 18:59 Intake Total 700 890 Output Total 1325 1025 Balance 371 -535 -1025 Intake: IV 600 240 Sodium Chloride 0.9% 1, 600 240 000 ml @ 75 mls/hr IV . [id number] [facility] Rx#:[id number] Intake, IV Titration 100 50 Amount ceFAZolin 2 gm In Sodium 100 50 Chloride 0.9% 50 ml @ 100 mls/hr IVPB Q8HR [facility] Rx# :[id number] Oral 600 Output: Drainage 125 Back 90 Lower Back 35 Urine 1200 1025 Uretheral (Peterson) 1025 Other: Voiding Method Indwelling Catheter Indwelling Catheter ABP, PAP, CO, CI - Last Documented Arterial Blood Pressure 150/60 - Exam GENERAL EXAM: Awake and alert, 71-year-old female, intubated, oriented 3, satting 97% on room air comfortable in no apparent distress. HEAD: Normocephalic/atraumatic. EYES: Normal reaction of pupils, equal size. Conjunctiva pink, sclera white. NOSE: Clear with pink turbinates. THROAT: No erythema or exudates. NECK: No masses, no JVD, no thyroid enlargement, no adenopathy. CHEST: No chest wall deformity. Symmetrical expansion. LUNGS: Equal air entry with no crackles, wheeze, rhonchi or dullness. CVS: Regular rate and rhythm, normal S1 and S2, no gallops, no murmurs, no rubs ABDOMEN: Soft, nontender. No hepatosplenomegaly, normal bowel sounds, no guarding or rigidity. EXTREMITIES: No clubbing, mild generalized edema, no cyanosis, 2+ pulses and upper and lower extremities. MUSCULOSKELETAL: Muscle strength and tone normal. SPINE: No scoliosis or deformity SKIN: No rashes, lumbar region incisions clean dry and intact, AARON drains with minimal serosanguineous output CENTRAL NERVOUS SYSTEM: Awake and alert, oriented 3. No focal deficits, tone is normal in all 4 extremities. - Labs CBC & Chem 7: 02/14/22 06:29 02/12/22 04:35 Labs: Abnormal Lab Results - Last 24 Hours (Table) 02/14/22 02/14/22 02/14/22 Range/Units 06:29 11:35 17:38 WBC 17.04 H (4.50-10.00) X 10*3/uL RBC 2.80 L (4.10-5.20) X 10*6/uL Hgb 8.0 L (12.0-15.0) g/dL Hct 25.7 L (37.2-46.3) % MCHC 31.1 L (32.0-37.0) g/dL RDW 14.6 H (11.5-14.5) % Plt Count 134 L (140-440) X 10*3/uL MPV 12.4 H (9.5-12.2) fL Absolute Nucleated RBC 0.03 H (0.00-0.00) X 10*3/uL NRBC/100 WBC Diff 0.2 H (0.0-0.0) /100 WBCS POC Glucose (mg/dL) 137 H 121 H (75-99) mg/dL 02/14/22 02/15/22 Range/Units 20:21 07:31 WBC (4.50-10.00) X 10*3/uL RBC (4.10-5.20) X 10*6/uL Hgb (12.0-15.0) g/dL Hct (37.2-46.3) % MCHC (32.0-37.0) g/dL RDW (11.5-14.5) % Plt Count (140-440) X 10*3/uL MPV (9.5-12.2) fL Absolute Nucleated RBC (0.00-0.00) X 10*3/uL NRBC/100 WBC Diff (0.0-0.0) /100 WBCS POC Glucose (mg/dL) 155 H 102 H (75-99) mg/dL Assessment and Plan Plan: Assessment: #1. Acute hypoxic respiratory failure, related to possible upper airway edema, and 40% right-sided pneumothorax. Patient had failed extubation and had to be r eintubated in the recovery room. Patient does have underlying sleep apnea which likely also contributed to her respiratory failure. This was after the lumbar spine decompression/fusion surgery on 02/11/2022. Patient was successfully weaned and extubated on postoperative day #1, on 02/12/2022 #2. Right-sided pneumothorax, status post Thoravent insertion, without tension pneumothorax, on today's chest x-ray 02/12/2022 patient has a right-sided chest tube in place without evidence of pneumothorax. Pleur-evac has no leak. This will be put to waterseal. Pneumothorax has resolved, and thoravent was removed on 02/14/2022, follow-up chest x-ray today shows no evidence of pneumothorax or acute pulmonary process #3. Severe obstructive sleep apnea maintained on CPAP therapy on an outpatient basis at a pressure of 10 cm of water followes with Dr. Blakely in the sleep center #4. Chronic back pain related to lumbar spine spondylosis #5. Morbid obesity with BMI of 33.7 #6. Coronary artery disease, currently inactive and stable, last myocardial infarction was in 2017 #7. Hyperlipidemia #8. History of IgA deficiency #9. Hypothyroidism Plan: Today's labs and chest x-ray have been reviewed No evidence of pneumothorax, no evidence of acute pulmonary process Vital signs are stable Encourage deep breathing and coughing Activity per orthopedic surgery recommendations Otherwise stable for discharge home from pulmonary perspective Outpatient follow-up with Dr. Blakely one week I have personally seen and examined the patient, performed the documentation and the assessment and plan as written. Number of minutes spent on the visit: [10] Time with Patient: Less than 30
[2022-02-15 12:05] LABS: Glucose,Whole Blood 151 mg/dL (75-99)
[2022-02-15] MEDS: SODIUM CHLORIDE 0.9% 1,000 ML IV SCH ×2 (12:49→23:51)
--- NOTE | 2022-02-15 13:39 | P.PN ---
Subjective Progress Note Date: 02/15/22 This is a 71-year-old female with past medical history of asthma, coronary artery disease, CVA/TIA, GERD, hyperlipidemia, hypertension, sleep apnea, posterior arthritis and multiple other medical issues admitted with symptomatic spondylolisthesis,lumbar stenosis, status post lumbar decompression and fusion, failed extubation in OR, requiring reintubation. Chest x-ray reported 40% right- sided pneumothorax. Thoravent placed. This morning maintained on mechanical ventilation, FiO2 40%/+5 of PEEP, sedated on diprovan. Chest x-ray reporting right-sided chest tube without pneumothorax redemonstrated, improved inspiration with persistent left basilar acute atelectasis and/or infiltrate.Thoravent ordered to water seal as per pulmonary. Tachycardic. Afebrile, WBC 14.1. Hemoglobin 10.6, platelets 120. 02/15/2022 yesterday right sided Thoravent removed. Chest x-ray this morning reporting no pneumothorax or other acute process. Denies chest pain, palpitations or shortness of breath. Maintaining O2 sats in the high 90s on room air. T-max. 99.4. Denies back pain, reports surgical pain controlled, wearing brace. Ambulated to nursing desk and chcf back, tolerated exertion well. Peterson catheter discontinued this morning, spontaneous void pending. Borderline hypotension. Objective - Vital Signs Vital signs: Vital Signs Temp 99.4 F 02/15/22 04:15 Pulse 98 02/15/22 04:15 Resp 16 02/15/22 04:15 BP 95/46 02/15/22 04:15 Pulse Ox 91 L 02/15/22 04:15 Intake & Output 02/14/22 02/15/22 02/15/22 18:59 06:59 18:59 Intake Total 700 890 Output Total 1325 1025 Balance 700 435 1025 Intake: IV 600 240 Sodium Chloride 0.9% 1, 600 240 000 ml @ 75 mls/hr IV . [id number] [facility] Rx#:[id number] Intake, IV Titration 100 50 Amount ceFAZolin 2 gm In Sodium 100 50 Chloride 0.9% 50 ml @ 100 mls/hr IVPB Q8HR [facility] Rx# :[id number] Oral 600 Output: Drainage 125 Back 90 Lower Back 35 Urine 1200 1025 Uretheral ([facility]) 1025 Other: Voiding Method Indwelling Catheter Indwelling Catheter ABP, PAP, CO, CI - Last Documented Arterial Blood Pressure 150/60 - Exam GENERAL: Sitting up in bed, no acute distress HEENT: Pupils are round and equally reacting to light. EOMI. No scleral icterus. No conjunctival pallor. Normocephalic, atraumatic. CARDIOVASCULAR: S1 and S2 present. No murmurs, rubs, or gallops. PULMONARY: Chest is clear to auscultation, no wheezing or crackles. ABDOMEN: Soft, nontender, nondistended, normoactive bowel sounds. No palpable organomegaly. Positive bowel sounds EXTREMITIES: No cyanosis, clubbing, trace pedal edema. NEUROLOGICAL: Cranial nerves II through XII grossly intact SKIN: Warm and dry, No rashes. - Labs CBC & Chem 7: 02/14/22 06:29 02/12/22 04:35 Labs: Abnormal Lab Results - Last 24 Hours (Table) 02/14/22 02/14/22 02/14/22 Range/Units 06:29 11:35 17:38 WBC 17.04 H (4.50-10.00) X 10*3/uL RBC 2.80 L (4.10-5.20) X 10*6/uL Hgb 8.0 L (12.0-15.0) g/dL Hct 25.7 L (37.2-46.3) % MCHC 31.1 L (32.0-37.0) g/dL RDW 14.6 H (11.5-14.5) % Plt Count 134 L (140-440) X 10*3/uL MPV 12.4 H (9.5-12.2) fL Absolute Nucleated RBC 0.03 H (0.00-0.00) X 10*3/uL NRBC/100 WBC Diff 0.2 H (0.0-0.0) /100 WBCS POC Glucose (mg/dL) 137 H 121 H (75-99) mg/dL 02/14/22 02/15/22 Range/Units 20:21 07:31 WBC (4.50-10.00) X 10*3/uL RBC (4.10-5.20) X 10*6/uL Hgb (12.0-15.0) g/dL Hct (37.2-46.3) % MCHC (32.0-37.0) g/dL RDW (11.5-14.5) % Plt Count (140-440) X 10*3/uL MPV (9.5-12.2) fL Absolute Nucleated RBC (0.00-0.00) X 10*3/uL NRBC/100 WBC Diff (0.0-0.0) /100 WBCS POC Glucose (mg/dL) 155 H 102 H (75-99) mg/dL Assessment and Plan Assessment: Chronic back pain secondary to lumbar spine spondylosis ,Status post revision L2 to pelvis decompression fusion, status post postop pneumothorax Right-sided pneumothorax without tension pneumothorax, status post Thoravent. Acute hypoxic respiratory failure secondary to the above, Postoperative urinary retention, status post Peterson cath. Degenerative joint disease, osteoarthritis. Chronic intermittent asthma CAD, history of [place] History of CVA/TIA GERD Hyperlipidemia Essential hypertension Obstructive Sleep apnea, CPAP at home. History of IgA deficiency Hypothyroidism Morbid obesity, BMI 33.7 Plan: Continue on current medication regime ,monitoring and symptomatic treatment. Peterson catheter recently discontinued, spontaneous voiding pending. Aggressive pulmonary toileting with incentive spirometer and reinforced. Medi doc cleared for discharge. Follow-up with PCP in one week with PCP. Home care discussed, patient and agreeable. The impression and plan of care has been dictated as directed. : I performed a history and examination of this patient, discussed the same with the dictator. I agree with the dictator's note ,documented as a scribe. Any additional findings or plans will be noted.
[2022-02-15 17:23] LABS: Glucose,Whole Blood 127 mg/dL (75-99)
[2022-02-15] MEDS: MONTELUKAST 10 MG TAB PO SCH (20:41)
[2022-02-15] MEDS: ATORVASTATIN 20 MG TAB PO SCH (20:41)
[2022-02-15] MEDS: DILTIAZEM CD 180 MG CAP.ER.24H PO SCH (20:42)
[2022-02-15 22:08] LABS: Glucose,Whole Blood 144 mg/dL (75-99)
[2022-02-16] MEDS: LEVOTHYROXINE 50 MCG TAB PO SCH (04:59)
[2022-02-16] MEDS: ACETAMINOPHEN TAB 325 MG TAB PO SCH ×2 (06:22→12:27)
[2022-02-16 07:13] LABS: Glucose,Whole Blood 114 mg/dL (75-99)
[2022-02-16] MEDS: INSULIN ASPART (NovoLOG) 100 UNIT/ML VIAL SQ SCH ×2 (07:15→11:37)
[2022-02-16] MEDS: PANTOPRAZOLE 40 MG TABLET PO SCH (08:26)
[2022-02-16] MEDS: GABAPENTIN 300 MG CAP PO SCH (08:28)
[2022-02-16] MEDS: TAMSULOSIN 0.4 MG CAP.ER.24H PO SCH (08:28)
[2022-02-16] MEDS: AMITRIPTYLINE HCL 50 MG TAB PO SCH (08:28)
[2022-02-16] MEDS: lisinopriL 5 MG TAB PO SCH (08:28)
[2022-02-16] MEDS: HYDROcodone/APAP 5-325MG 1 EACH TAB PO PRN (08:29)
[2022-02-16] MEDS: ENOXAPARIN 40 MG/0.4 ML SYRINGE SQ SCH (08:33)
[2022-02-16 09:17] LABS: Basophils % (A) 0 %; Eosinophils # (A) 0.5 k/uL (0-0.7); Eosinophils % (A) 4 %; HCT 27.6 % (34.0-46.0); Lymphocytes # (A) 1.9 k/uL (1.0-4.8); Lymphocytes % (A) 16 %; MCH 29.5 pg (25.0-35.0); MCHC 31.9 g/dL (31.0-37.0); Mean Platelet Volume 9.3; Monocytes # (A) 0.5 k/uL (0-1.0); Monocytes % (A) 4 %; Neutrophils # (A) 9.1 k/uL (1.3-7.7); Neutrophils % (A) 75 %; Platelet Count 215 k/uL (150-450); RBC 2.98 m/uL (3.80-5.40); RDW 14.7 % (11.5-15.5); WBC 12.2 k/uL (3.8-10.6)
--- NOTE | 2022-02-16 09:23 | P.PN ---
Subjective Progress Note Date: 02/16/22 Principal diagnosis: Status post [id number] revision decompression with fusion Patient seen and examined today, she was sitting at the edge of the bed eating breakfast. Patient denies pain at this time and states she is doing well. Surgical incision is clean dry and intact. Patient has not had a bowel movement but states she is passing gas. Patient states she had a trial void yesterday that failed, Flowers catheter remains and patient will be discharged home with this. Patient was febrile early this morning, with an elevated white count that was documented 2 days ago. CBC reordered, pending those results anticipate discharge today. Patient currently is still on IV antibiotics. Patient currently denies any fever/chills, nausea/vomiting, or chest pain. Objective - Vital Signs Vital signs: Vital Signs Temp 100.4 F H 02/16/22 07:25 Pulse 99 02/16/22 07:25 Resp 19 02/16/22 07:25 BP 113/61 02/16/22 07:25 Pulse Ox 88 L 02/16/22 07:25 Intake & Output 02/15/22 02/16/22 02/16/22 18:59 06:59 18:59 Intake Total 1110 Output Total 1025 850 Balance -1025 260 Intake: Intake, IV Titration 290 Amount Sodium Chloride 0.9% 1, 240 000 ml @ 75 mls/hr IV . [id number] [facility] Rx#:[id number] ceFAZolin 2 gm In Sodium 50 Chloride 0.9% 50 ml @ 100 mls/hr IVPB Q8HR [facility] Rx# :[id number] Oral 820 Output: Urine 1025 850 Uretheral (Flowers) 1025 650 Other: Voiding Method Toilet # Voids 1 ABP, PAP, CO, CI - Last Documented Arterial Blood Pressure 150/60 - Exam Physical Examination General: The patient is awake and alert, in no acute distress Skin: Skin is warm and dry with no obvious rashes or lesions. Hairy patches absent, no dorsal skin dimples, and no cafe au lait spots. There is a midline incision to the lumbar region, dsg CDI. Eye: Pupils are equal, round and reactive to light, extra-ocular movements are intact; there is normal conjunctiva bilaterally. Neck: The neck is supple, there is no tenderness and ROM intact. Cardiovascular: There is a regular rate and rhythm. No murmur, rub or gallop is appreciated. Respiratory: Lungs are clear to auscultation, respirations are non-labored, breath sounds are equal, thoravent present in right chest wall. Gastrointestinal: Soft, non-distended, non-tender abdomen. Back: There is mild tenderness to palpation in the midline, paralumbar region. There is no obvious deformity. Musculoskeletal: ROM limited secondary to pain and stiffness from surgical procedure. Shoulder abduction 5/5, elbow flexors 5/5, wrist dorsiflexors 5/5. finger abductor 5/5, liquor commissioner 5/5, hip flexor 4/5, knee flexor 4/5, ankle dorsiflexor 4/5, ankle plantarflexion 4/5 and extensor hallucis 4/5. Neurological: CN 2-12 intact. There are no obvious motor or sensory deficits. Movement and coordination equal and intact. Sensory exam to light touch intact C5-T1 and intact from L2-S1. Reflexes 2/4 in bilateral upper and lower extremities. Negative Hoffmans, babinski, and clonus signs. Psychiatric: Cooperative, appropriate mood & affect, normal judgment. - Labs CBC & Chem 7: 02/14/22 06:29 02/12/22 04:35 Labs: Abnormal Lab Results - Last 24 Hours (Table) 02/15/22 02/15/22 02/15/22 Range/Units 12:03 17:21 21:57 POC Glucose (mg/dL) 151 H 127 H 144 H (75-99) mg/dL 02/16/22 Range/Units 07:11 POC Glucose (mg/dL) 114 H (75-99) mg/dL Assessment and Plan Assessment: Postop day 5: Status post [id number] revision decompression with fusion Post surgical urinary retention Plan: I reviewed and discussed the case with my attending Dr. Syed, he has had a chance to review the chart and films and we have decided to proceed as outlined below. Plan: -Appreciate customs consultant and team management. -Activity: Ambulate QID, OOB all meals, up and about, limit lifting bending twisting to less than 5 lbs. Use walker or cane if needed for stability. -Daily PT/OT, increase ambulation strength and balance. -Brace when up and about, not needed in bed or chair -Pain control: Adequate at this time -Meds: reviewed -GI ppx: senna, Miralax -DC flowers: remains at d/c, per Dr. Cevallos. -DVT PPX: Lovenox -Hygiene: Shower today. Maintain dressing clean and dry. Meticulous cleaning after BMs away from incision site -Encourage IS 10x/hr -Dispo: Anticipate Home with home care today pending medical clearance 02/16. I have personally seen and examined the patient, performed the documentation and the assessment and plan as written. Number of minutes spent on the visit: [20 ]. Time with Patient: Less than 30
[2022-02-16 09:30] LABS: African American GFR (CKD) 89 (>60 ml/min/1.73 sqM); Anion Gap 6 mmol/L; Blood Urea Nitrogen 12 mg/dL (7-17); Calcium 8.2 mg/dL (8.4-10.2); Carbon Dioxide 24 mmol/L (22-30); Chloride 106 mmol/L (98-107); Glucose 109 mg/dL (74-99); Non-African American GFR(CKD) 77 (>60 ml/min/1.73 sqM); Potassium 4.2 mmol/L (3.5-5.1); Sodium 136 mmol/L (137-145)
[2022-02-16 09:39] LABS: HGB 8.8 gm/dL (11.4-16.0)
[2022-02-16 09:40] LABS: MCV 92.5 fL (80.0-100.0)
--- NOTE | 2022-02-16 09:49 | P.OP ---
Date of Procedure: 02/11/22 Preoperative Diagnosis: 1. L2-S1 stenosis, severe at L2-L4 2.L2-S1 spondylosis 3. Adjacent Segment Disease L2-L3, L3-L4 4. L3-L4 grade 1 spondylolisthesis 5. S/P L4-S1 decompression and fusion 6. Sacroilitis b/l Postoperative Diagnosis: 1. L2-S1 stenosis, severe 2.L2-S1 spondylosis 3. Adjacent Segment Disease L2-L3, L3-L4 4. L3-L4 grade 1 spondylolisthesis 5. S/P L4-S1 decompression and fusion 6. Sacroilitis b/l Procedure(s) Performed: 1. Exploration of fusion L4-S1 (17307) 2. Removal of segmental instrumentation L4-S1 (61423) 3. Revision Posteriorlateral fusion L4-S1 (14749, 52720) with L2-Pelvis fusion 4. L2-3 Combined posteriolateral and interbody fusion (83025) 5. L3-4 Combined posteriolateral and interbody fusion (95915) 6. Revision decompressive laminectomy with complete facetectomy and foraminotomy L2-S1 (16718, 23230k7) 7. Pelvic fixation other than sacrum (44070) 8. Open fusion sacroilliac joint bilateral with screw fixation (09672/50) 9. Use of intraoperative neuromonitoring 10. Interpretation of intraoperative flouroscopy < 1 hr. (03613) This case took 75% longer than expected due to the difficulty of the case, revision nature, scar tissue, Pts BMI (Mod 22) Implants: -Sohan Alfonso screws/kevin system -Globus Sable Cages x 2 8 deg lordotic -SI bone iFuse screws: Rt: 10 mm x 60 mm Lt: 9 mm x 60 mm -local Autograft -Bio 4 -Allograft -DBM Anesthesia: GETA Surgeon: Amdaeo Syed Herbicide Sprayer #1: Marielena Greer (Was present for the entire case and necessary for assistance in positioning, dissection, removal of hardware, instrumentation, fusion, decompression, closing, and dressing placement. ) Estimated Blood Loss (ml): 1,100 IV fluids (ml): 4,500 Urine output (ml): 600 Pathology: none sent Condition: stable Disposition: PACU Indications for Procedure: Nidia Greene is presenting for evaluation of lumbar pain. It was my pleasure to have seen and examined Nidia Greene. In our visit today we have had a chance to go over subjective complaints, physical examination findings and treatments including the natural course history without intervention and various interventional options. The patients imaging demonstrates xray: is reviewed and demonstrate spondylosis from L2 to S1. There is facet arthrosis disc desiccation as well as instability findings. There is a grade 1 spondylolisthesis L3 on L4 noted there is retrolisthesis L4- L5. There is foraminal stenosis. No fracture or dislocation is noted. There is flattening of the normal lumbar lordosis there is adjacent segment disease noted L2 through L3 4. Hardware is in place L4 to S1. Potential for hardware loosening noted. There is haloing around the upper screws. AP pelvis demonstrates congruent level pelvis no fracture dislocation. MRI: This demonstrates adjacent segment disease L2-3 L3 4. There is metal artifact from L4 to S1 making it difficult to assess these areas however there is moderate to severe stenosis L2 through L3 4 which is noted. There spondylosis L2 to S1. There is facet arthrosis and bogginess noted at these levels. There is disc desiccation as well noted. There is central and foraminal stenosis related to these findings. There is ligamental hypertrophy at the above levels. No acute fractures noted no lesions noted. On physical exam, Nidia Greene demonstrates bilateral lower extremity radiculopathy with weakness and significantly effected gait. Patient demonstrates postive lordotic curve with significantly limited lumbar ROM. I have explained to the patient that as their condition progresses it will cause further neurological deficits and eventual paralysis. Based on the patients imaging, physical exam, and the rapid progression and disabling nature of their symptoms, at this time I recommend surgery in the form or a: L2-Pelvis revision decompression and fusion. I discussed the risk and benefits of this procedure at length with Nidia Greene. The patient agreed to considered pursuing the procedure abovementioned. Prior to surgery, she should follow up with her PCP (Cardio, ID, IM etc) for clearance. Questions were invited and answered, and the patient wishes to proceed as outlined below. Currently, I am recommendin.L2-Pelvis revision decompression and fusion 2.Follow up with PCP for surgical clearance 3.Review of surgical risks and benefits as well as an educational packet on the proposed surgical procedure. Description of Procedure: The patient was seen and examined in the preoperative area. All preoperative protocols were followed. Informed consent was obtained risks and benefits of the procedure were discussed at length. Risks including bleeding infection damage to the surrounding tissue and risk of reoperation were discussed with the patient. Risk of anesthesia up to and including was a discussed with the patient. These are outlined in the risk review. They were willing to accept these risks and all of the risks of surgery. The patient was given a weight- based dose of antibiotics in the form of vancomycin weight-based dose. The patient was seen and evaluated by the anesthesia team who deemed them fit for surgery. The site was marked, the patient was willing to proceed with the procedure. The patient was transferred to the operative suite by the Department of anesthesia. They were then drifted off to sleep by the department anesthesia and GETA was performed. The patient tolerated this well. Peterson catheter was placed by nursing staff, atraumatically. Once confirmation of lines and ventilation the patient was transferred to a prone Rbown table very carefully. All bony prominences including wrists, elbows, axilla, chest, hips, and thighs, and feet were padded very well. Special attention was paid to the genitalia and these were padded accordingly. SCDs were placed on bilateral lower extremities and were connected. Arms were well padded and placed on arm boards up and out in the 90/90 position. Once in position, again we confirmed good ventilation capabilities and that lines were running appropriately. The patient's lumbar spine was then exposed. 1010s were placed outlining the incision site. Standard alcohol was used to clean the incision site and allowed to dry. C-arm was used to biomark the patient and confirm level for incision which was marked with a skin marker. Operative briefing was performed with all teams and everyone in agreement to proceed. The patient was then prepped and draped in a normal sterile fashion. Timeout was then performed and all parties were in agreement with the procedure to be performed. Skin incision was then made over the previously by marked area and dissection taken down with electrocautery until the lumbar fascia was identified. This was then cleaned with a Milner. Midline fasciotomy was then performed. Subperiosteal dissection was taken down over the lamina of L1 and L2 revealing the L2 pars as well as the L2 transverse process. We then meticulously dissected down to L3 there is exuberant scar tissue in this area due to her previous fusion we were then able to identify L3 and L4. Midline void at L4-L5 and S1 was then identified and cleaned with and perform dissection out to her previous hardware at L4 5 and L5-S1 were able to identify or hardware bilaterally at L4 5 and L5- S1 we then cleaned to this and removed the hardware from this area. We then proceeded with continued dissection down to the patient's pelvis where the iliac wing and SI joints were identified bilaterally. SI joints were decorticated bilaterally using electrocautery as well as curettes. We then proceeded with placement of new hardware from L4 to through the pelvis. Starting at L2 bilaterally screws were placed using fluoroscopic guidance high speed bur followed by a pedicle finder feeler tap and screw were placed. Due to her bone quality we did elect to cement the L2 screws and this was done using a cement technique of cement placement prior to screw placement. We inserted a Jamshidi down our prepared holes and cement was then placed within the vertebral body under lateral fluoroscopic guidance once good cement fill had been obtained the screws were then inserted. There was no extravasation there was no cement myelogram or angiogram. We then repeated this at L3 4 5 and S1. We then turned our attention to placement of pelvic screws under lateral for fluoroscopy the sciatic notch was viewed visualized. A modified pelvic screw and a Uribe technique was taken. High-speed bur was introduced followed by a flat pedicle finder. This is gently advanced and impacted into place under lateral fluoroscopic guidance to be just superior to the sciatic notch we then took a 30 by 30 view to visualize the teardrop and the pedicle finder was within the teardrop. We then tapped and placed an 8.5 x 85 mm screw in this area. This was then repeated on the opposite side without any issues. We then performed open SI fusion bilaterally for increased construct stability. The SI joints had been decorticated and in a S2 AI approach we were able to place bilateral SI bone screws. This was performed using a high-speed bur followed by a pedicle finder obtaining a 30 by 30 review to ensure within the teardrop across the SI joint inlet and outlet views confirmed across the SI joint and in good position as well we then tapped and placed the screw bilaterally in these areas. Final AP inlet and outlet views confirmed good position of the pedicle screws pelvic screws and SI fusion screws. We then tested screws using intraoperative neuro monitoring and all screws tested above 20 mA. We then turned our attention to the placement of interbody cages at L2-3 and L3 4 for reduction and stability. We performed bilateral laminectomy facetectomy and foraminotomy at L2-3 and L3 4 using high-speed bur. [place] T cuts were performed. To remove the IP L2 and L3 respectively followed by W cuts to remove the SAP of L3 and L4. This insured complete and wide decompression at L2 through L3 4 as well as bilateral foraminotomy. We then accessed the disc space of L2-L3 through Kambin's triangle performed a complete discectomy using sequential shaving down biting curettes kolby and Quentin once this was accomplished we placed autograft and allograft anteriorly within the disc space and selected a stable cage which was then impacted into place while protecting the nerve roots completely. It was then expanded and back filled with autograft and DBM. We then turned our attention to the L3-L4 interspace where this was repeated while protecting nerve root and dura we sequentially shaved followed by down-biting curettes bear claws pituitary rongeur performing complete discectomy in this area. Good bleeding endplates were noted. Allograft and autograft for impacted anteriorly in the disc space stable cages and selected and impacted into position was then expanded and locked. We then back filled the cage with autograft and DBM. We then performed meticulous hemostasis throughout. We turned our attention to placement of rods rods were selected and bent and placed in the position there were then secured into position with set screws and reduced. Final turret lathe tender was then used to torque the set screws. We then selected cross-links and these were placed in position and final tightened. We then copiously irrigated the wound with 6 L of antibiotic solution followed by 3 L of normal sterile saline. We then decorticated posterior lateral gutters and transverse processes with the high-speed bur a mixture of allograft autograft DBM Ira was then placed the posterior lateral gutters and impacted position. Surgicel was placed over the exposed dura. A deep drain was placed. Vancomycin powder replaced with the wound. We then proceeded with layered closure first in the lumbar fascia with #1 Vicryl followed by 0 PDS OPS was in place in the deep subcu tissue over a subcu drain. 2-0 PDS was then placed in the superficial subcu tissue and 2-0 nylon placed in the skin. The wound edges approximated very well the wound was then cleaned and dressed sterilely with operative foam dressing 4 x 4's and Tegaderms. The patient was transferred back to their hospital bed atraumatically. Drain continued to hold suction and were in good position. Patient was then awakened and extubated by the department of anesthesia having tolerated the procedure very well with no complications. They were transferred to the postoperative care unit in stable condition.
--- NOTE | 2022-02-16 10:02 | P.DS ---
Providers Date of admission: 02/11/22 15:16 Expected date of discharge: 02/16/22 Attending physician: Amadeo Syed DO Consults: 02/11/22 15:12 Consult Physician Routine Consulting Provider: Richard Tinoco Consult Reason/Comments: Medical Management Do you want consulting provider notified?: Yes 02/11/22 16:15 Consult Physician Routine Consulting Provider: Jamir Blakely Consult Reason/Comments: Pneumo Do you want consulting provider notified?: Already Contacted 02/14/22 11:14 Consult Physician Routine Consulting Provider: Hiram Cevallos Consult Reason/Comments: retention Do you want consulting provider notified?: Yes Primary care physician: Richard Tinoco Hospital Course: Hospital Course: The patient was evaluated preoperatively and 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 They underwent appropriate preoperative care and were willing to undergo the intended procedure. They underwent a successful L4 to S1 decompression and fusion, were recovered appropriately and sent to the floor. While on the floor they worked with physical therapy, occupational therapy and nursing to enhance their recovery experience. Their pain was well controlled through their stay and they were started on appropriate medications, DVT ppx modalities, activity and dietary needs. Daily labs were monitored closely, and transfusions were only used when necessary. Medicine as well as other consulting services have made their input and have helped with our team approach and multidisciplinary care. PT milestones have been met and passed and they have made the recommendation of home with home care for this patient and treating providers agree with this care path. The patient will be discharged home with appropriate medications, instructions and follow-up information and in stable condition. Assessment: Physical Examination General: The patient is awake and alert, in no acute distress Skin: Skin is warm and dry with no obvious rashes or lesions. Hairy patches absent, no dorsal skin dimples, and no cafe au lait spots. There is a midline incision to the lumbar region. Eye: Pupils are equal, round and reactive to light, extra-ocular movements are intact; there is normal conjunctiva bilaterally. Neck: The neck is supple, there is no tenderness and ROM intact. Cardiovascular: There is a regular rate and rhythm. No murmur, rub or gallop is appreciated. Respiratory: Lungs are clear to auscultation, respirations are non-labored, breath sounds are equal. Gastrointestinal: Soft, non-distended, non-tender abdomen. Back: There is mild tenderness to palpation in the midline, paralumbar region. There is no obvious deformity. Musculoskeletal: ROM limited secondary to pain and stiffness from surgical procedure. Shoulder abduction 5/5, elbow flexors 5/5, wrist dorsiflexors 5/5. finger abductor 5/5, communications intern 5/5, hip flexor 4/5, knee flexor 4/5, ankle dorsiflexor 4/5, ankle plantarflexion 4/5 and extensor hallucis 4/5. Neurological: CN 2-12 intact. There are no obvious motor or sensory deficits. Movement and coordination equal and intact. Sensory exam to light touch intact C5-T1 and intact from L2-S1. Reflexes 2/4 in bilateral upper and lower extremities. Negative Hoffmans, babinski, and clonus signs. Psychiatric: Cooperative, appropriate mood & affect, normal judgment. Patient Condition at Discharge: Good Plan - Discharge Summary Discharge Rx Participant: Yes New Discharge Prescriptions: New cefaDROXiL [Duricef] 500 mg PO Q12HR 3 Days #6 cap Gabapentin 300 mg PO TID #90 cap Sennosides/Docusate Sodium [Senna Plus 8.6-50 mg Softgel] 1 each PO HS PRN #20 capsule PRN Reason: Constipation Cyclobenzaprine [Flexeril] 5 mg PO TID #90 tablet Magnesium Citrate 125 mg PO DAILY PRN #20 capsule PRN Reason: Constipation Polyethylene Glycol 3350 [Miralax] 17 gm PO DAILY PRN #527 gm PRN Reason: Constipation HYDROcodone/APAP 5-325MG [[place] 5-325] 1 - 2 tab PO Q6HR PRN #56 tab PRN Reason: Pain No Action Clopidogrel Bisulfate [Clopidogrel] 75 mg PO DAILY Meloxicam 7.5 mg PO HS Montelukast [Singulair] 10 mg PO HS Diltiazem HCl [Diltiazem HCl 24Hr ER] 360 mg PO HS Ergocalciferol [Vitamin D2 (DRISDOL)] 50,000 unit PO SA Amitriptyline HCl 50 mg PO BID Atorvastatin [Lipitor] 20 mg PO HS Pantoprazole [Protonix] 40 mg PO DAILY Isosorbide Mononitrate ER [Imdur] 30 mg PO DAILY Acetaminophen-Codeine 300-30mg [Tylenol w/codeine #3] 1 tab PO BID PRN PRN Reason: Pain L.acidoph,Paracasei, B.lactis [Probiotic] 1 cap PO DAILY sitaGLIPtin [Januvia] 100 mg PO DAILY Levothyroxine Sodium [Synthroid] 50 mcg PO DAILY lisinopriL [Zestril] 5 mg PO DAILY Discharge Medication List Clopidogrel Bisulfate [Clopidogrel] 75 mg PO DAILY 06/10/14 [History] Meloxicam 7.5 mg PO HS 06/10/14 [History] Montelukast [Singulair] 10 mg PO HS 10/01/15 [History] Diltiazem HCl [Diltiazem HCl 24Hr ER] 360 mg PO HS 04/07/16 [History] Amitriptyline HCl 50 mg PO BID 01/29/19 [History] Ergocalciferol [Vitamin D2 (DRISDOL)] 50,000 unit PO SA 01/29/19 [History] Atorvastatin [Lipitor] 20 mg PO HS 04/23/20 [History] Pantoprazole [Protonix] 40 mg PO DAILY 04/23/20 [History] Isosorbide Mononitrate ER [Imdur] 30 mg PO DAILY 11/08/21 [History] L.acidoph,Paracasei, B.lactis [Probiotic] 1 cap PO DAILY 11/08/21 [History] Levothyroxine Sodium [Synthroid] 50 mcg PO DAILY 11/08/21 [History] sitaGLIPtin [Januvia] 100 mg PO DAILY 11/08/21 [History] Acetaminophen-Codeine 300-30mg [Tylenol w/codeine #3] 1 tab PO BID PRN 02/09/22 [History] lisinopriL [Zestril] 5 mg PO DAILY 02/09/22 [History] Cyclobenzaprine [Flexeril] 5 mg PO TID #90 tablet 02/16/22 [Rx] Gabapentin 300 mg PO TID #90 cap 02/16/22 [Rx] HYDROcodone/APAP 5-325MG [[place] 5-325] 1 - 2 tab PO Q6HR PRN #56 tab 02/16/22 [Rx] Magnesium Citrate 125 mg PO DAILY PRN #20 capsule 02/16/22 [Rx] Polyethylene Glycol 3350 [Miralax] 17 gm PO DAILY PRN #527 gm 03/22/22 [Rx] Sennosides/Docusate Sodium [Senna Plus 8.6-50 mg Softgel] 1 each PO HS PRN #20 capsule 02/16/22 [Rx] cefaDROXiL [Duricef] 500 mg PO Q12HR 3 Days #6 cap 02/16/22 [Rx] Follow up Appointment(s)/Referral(s): Amadeo Syed DO [Doctor of Osteopathic Medicine] - 2 Weeks Richard Tinoco MD [Primary Care Provider] - 1 Week Hiram Cevallos MD [STAFF PHYSICIAN] - 1 Week Jamir Blakely MD [STAFF PHYSICIAN] - 1 Week Activity/Diet/Wound Care/Special Instructions: 3 phase, 3-week plan POST OP WEEKS 1-3 1. Lifting/carrying/pushing/pulling limited to less than 5 pounds. 2. Do not sit for longer than 15 minutes at one time. Get up and walk around. Prolonged sitting is NOT advised. If you lay down, see if you can tolerate laying down on you front (belly side) 3. Walk for periods of 15 minutes = 1 mile but no longer; do it multiple times times each day. 4.Ice your low back after activity. POST OP WEEKS 3-6 1. Lifting limited to less than 20 pounds. 2. Do not sit for longer than 30 minutes at a time. Frequently change positions. Use a sit-to stand workstation or take frequent breaks from sitting if you have returned to work. 3. Walk for 30 minutes each day. If possible, do these three or more times a day POST OP WEEKS 6+ At your 6-week appointment we will give you a physical therapy referral to focus on a core stabilization and strengthening program. You should also work on leg & buttock strengthening, hamstring & quadriceps stretching, and continue a low impact aerobic activity program such as swimming, walking, or riding a stationary bicycle. During the initial 6 weeks after your surgery, you are at the highest risk of re-injuring your spine. You should generally avoid BLTs (bending, lifting and twisting combination motions) and follow the above guidelines to reduce the chance of reinjury. You can anticipate post op appointments in our office at approximately 3 weeks and 6 weeks after your surgery. INCISION CARE: If your incision is not draining you do NOT need to cover it with a dressing. Keep your incision clean, dry and intact. In most cases, we apply skin glue, andreas or sutures to the incision at the time of surgery. This will be like a crust or have the appearance of a scab and will fall off in time on its own. The stitches or andreas need to be removed at 3 weeks post op appointment. You may begin to shower 3 days after surgery (this allows the glue to ruiz well). However, please avoid scrubbing the incision site or peeling off any of the skin glue. This will ensure optimal healing of your incision. Also, during this time avoid soaking the incision area in water - this includes swimming pools, hot tubs or baths. No ointments, lotions or oils on the incision until your surgeon allows. Leave andreas, sutures or glue in place. Neurological dysfunction that comes on suddenly can also be a sign of a stroke. Below some common symptoms of a stroke are listed: B - balance difficulty such as sudden onset walking or leaning to one side - NEW E - eye problem such as sudden double vision or trouble seeing on one side - NEW F - Facial weakness or numbness on one side - NEW A - Arm or leg weakness or numbness on one side - NEW S - Slurred speech or difficulty with word finding - NEW T - Time is BRAIN! Call 911 as soon as you recognize these symptoms Diet: Consume a regular diet rich in vegetables and lean protein such as chicken or fish. You should consume in a ratio of approximately 20% fats|40% carbohydrates|40%protein. Vegetables, sweet potatoes, brown rice or quinoa are examples of good carbohydrates. Chips, white bread, cookies and sweets/sugar are examples of bad carbohydrates. Limit your bad carbs, go wild with good carbs. "Life's Simple 7" Guidelines as per [place] [employer] These will help you reclaim your life after surgery and spiral tube winder helper in your recovery, keeping in mind your restrictions. (1) Get Active. Physical activity can help people lose weight, control high blood pressure and cholesterol, feel emotionally better, and sleep better. (2) Control Cholesterol. Avoid a diet high in saturated fat, trans fat, & cholesterol. Limit whole milk & cream, ice cream, butter, egg yolks, processed meats (like sausage and hot dogs), and fatty meats. Choose healthy foods that are low in saturated fat, trans fat and cholesterol which include: Fruits and vegetables, fiber rich grain products (like whole grain pasta and brown rice), lean meat such as chicken, fish, nuts, seeds, and legumes. (3) Eat Better. Eat small portions. Shop at the grocery with a list and do not stray from it. Tips for a healthy diet include: Limit sodium intake to less than 1500mg daily, avoid prepackaged, processed, and fast foods, choose a diet rich in fruits, vegetables, and whole grain, high fiber foods, and limit saturated & cholesterol in your diet. (4) Manage Blood Pressure. If you have high blood pressure, you should have a cuff at home so that you can check your blood pressure regularly. Be sure you have a good cuff. An arm one is generally better than a wrist one. Bring the cuff to a doctor's appointment to validate that the measurements that your cuff are taking are accurate. Take your blood pressure twice daily when you are sitting down and relaxing. Record the numbers in a log and bring this log with you to your doctors' appointments. (5) Lose Weight if your BMI is above 25. A healthy BMI is between 19-25. To calculate Your BMI, you may use a Standard BMI Calculator on the NIH BMI website: <www.nhlbi.nih.gov/guidelines/obesity/BMI/bmicalc.htm>. Weigh oneself daily. If you are overweight, set a goal to lose weight. A pound a week loss if needed is a good target. (6) Reduce Blood Sugar. Limit foods and liquids with "added sugars." (Added sugars include sucrose, fructose, glucose, maltose, dextrose, high fructose corn syrup, corn syrup, concentrated fruit juice and honey). (7) Stop Smoking. If you smoke, quitting smoking is one of the best things that you can do for your health. Smoking increases your risk of heart attack, stroke, and peripheral vascular disease, which is a build-up of plaque in your arteries. Please discard all the cigarettes and lighters in your house. Have a plan for what you will do when you have the urge to smoke. Direct and second-hand smoke shortens your life as well as the lives of your family, friends and others around you. For your health and the health of those around you, please consider quitting! Proper Bending Body Mechanics: Maintain a wide stance with one foot slightly in front of the other. Keep your back straight. Bend utilizing the strength in your hips and knees. Do not bend at the waist. Maintain the lifted object at your waist-level close to your body. Avoid lifting weight that causes immediately pain or pain anywhere in the body afterwards. Smoking/Nicotine If there was ever one thing that you could do to increase your overall health, decrease your risk of cardiovascular problems by about 39% the second you make the choice, it is to STOP SMOKING. Your body's most instant gratification is the second you stop smoking. We have all heard the studies, read the articles but it is true, smoking is extremely bad for your overall health, and moreover it is detrimental to your bone health. Nicotine, IN ANY FORM, kills bone cells, prevents your body from healing fractures, and significantly prolongs healing after surgery. In spine surgery specifically, it increases your risk of not healing your bones to create a fusion and increases your risk of having a revision surgery due to this up to 60%. I know it is hard. I know it feels impossible. But there are ways. Take control of your life. We are here to help you through it. And when you are ready, ask us and we can direct you to help if you desire. Use the START Plan to Quit Smoking (please visit the Helpguide.org website listed below for more information): S = Set a quit date. Choose a date within the next 2 weeks, so you have enough time to prepare without losing your motivation to quit. If you mainly smoke at work, quit on the weekend, so you have a few days to adjust to the change. T = Tell family, friends, and co-workers that you plan to quit. Let your friends and family in on your plan to quit smoking and tell them you need their support and encouragement to stop. Look for a quit donato who wants to stop smoking as well. You can help each other get through the rough times. A = Anticipate and plan for the challenges you'll face while quitting. Most people who begin smoking again do so within the first 3 months. You can help yourself make it through by preparing ahead for common challenges, such as nicotine withdrawal and cigarette cravings. R = Remove cigarettes and other tobacco products from your home, car, and work. Throw away all your cigarettes (no emergency pack!), lighters, ashtrays, and matches. Wash your clothes and freshen up anything that smells like smoke. Shampoo your car, clean your drapes and carpet, and steam your furniture. T = Talk to your doctor about getting help to quit. Your doctor can prescribe medication to help with withdrawal and suggest other alternatives. If you can't see a doctor, you can get many products over the counter at your local pharmacy or grocery store, including the nicotine patch, nicotine lozenges, and nicotine gum. Resources for Quitting Smoking: <https://www.[place].gov/do cuments/[facility]/Quit_Tobacco_Resources_for_patients_313480_7.pdf> Supplementation: Take recommended dosages of Vitamin D and Calcium to help fortify your bones and help them to heal. See your health maintenance packet for dosages and recommended levels. DVT/VTE prophylaxis: You will be given compression stockings from the hospital. Wear these daily for the first two weeks after surgery. You may take them off at night. You may be prescribed a medication to help thin your blood. Take this as directed. If you are not prescribed this medication, early and frequent ambulation has been shown to be the best prophylaxis to deep vein thrombosis and sequelae related to this event. Discharge Disposition: HOME WITH HOME HEALTH SERVICES
[2022-02-16 10:50] VITALS: RESP 18
[2022-02-16 11:22] LABS: Glucose,Whole Blood 115 mg/dL (75-99)
[2022-02-16 13:10] VITALS: BP 106/68; PULSE 91; TEMP 98.6
--- NOTE | 2022-02-16 13:27 | P.PN ---
Progress Note - Text Progress Note Date: 02/16/22 Ms. Greene's first postvoid residual yesterday was 286 mL. However, her postvoid residuals increased and the Peterson catheter was replaced when the residual exceeded 400 mL. She will be discharged home with Peterson catheter and follow up with Dr. Cevallos. She was instructed to remove the catheter 8 hours prior to seeing him.
== END 2022-02-16 16:10 | disposition home health service (06) | DRG 453 ==
LOC: OR 05:34 → 2SICU 14:16 → OR 15:16 → 5NMEDONC 02-13 17:02
PROVIDERS: ADMIT Orthopaedic Surgery; ATTEND Orthopaedic Surgery
PROC: 0SG1071 Fusion of 2 or more Lumbar Vertebral Joints with Autologous Tissue Substitute, Posterior Approach, Posterior Column, Open Approach (ICD-10-PCS; 2022-02-11)
PROC: 0SG3071 Fusion of Lumbosacral Joint with Autologous Tissue Substitute, Posterior Approach, Posterior Column, Open Approach (ICD-10-PCS; 2022-02-11)
PROC: 0SP304Z Removal of Internal Fixation Device from Lumbosacral Joint, Open Approach (ICD-10-PCS; 2022-02-11)
PROC: 0ST20ZZ Resection of Lumbar Vertebral Disc, Open Approach (ICD-10-PCS; 2022-02-11)
PROC: 0W9930Z Drainage of Right Pleural Cavity with Drainage Device, Percutaneous Approach (ICD-10-PCS; 2022-02-11)
PROC: 0D9670Z Drainage of Stomach with Drainage Device, Via Natural or Artificial Opening (ICD-10-PCS; 2022-02-11)
PROC: 0SG10AJ Fusion of 2 or more Lumbar Vertebral Joints with Interbody Fusion Device, Posterior Approach, Anterior Column, Open Approach (ICD-10-PCS; principal; 2022-02-11 07:30)
PROC: 5A1935Z Respiratory Ventilation, Less than 24 Consecutive Hours (ICD-10-PCS; 2022-02-12)
PROC: 0BH17EZ Insertion of Endotracheal Airway into Trachea, Via Natural or Artificial Opening (ICD-10-PCS; 2022-02-12)
DX: M48.062 Spinal stenosis, lumbar region with neurogenic claudication (principal); J96.01 Acute respiratory failure with hypoxia; D80.2 Selective deficiency of immunoglobulin A [IgA]; J93.9 Pneumothorax, unspecified; M47.26 Other spondylosis with radiculopathy, lumbar region; M43.16 Spondylolisthesis, lumbar region; E03.9 Hypothyroidism, unspecified; E11.9 Type 2 diabetes mellitus without complications; E66.01 Morbid (severe) obesity due to excess calories; Z68.33 Body mass index [BMI] 33.0-33.9, adult; E78.00 Pure hypercholesterolemia, unspecified; G47.33 Obstructive sleep apnea (adult) (pediatric); G89.29 Other chronic pain; I10 Essential (primary) hypertension; I95.9 Hypotension, unspecified; I25.10 Atherosclerotic heart disease of native coronary artery without angina pectoris; I25.2 Old myocardial infarction; J45.20 Mild intermittent asthma, uncomplicated; R33.8 Other retention of urine; K21.9 Gastro-esophageal reflux disease without esophagitis; M17.12 Unilateral primary osteoarthritis, left knee; Z79.02 Long term (current) use of antithrombotics/antiplatelets; Z79.84 Long term (current) use of oral hypoglycemic drugs; Z79.890 Hormone replacement therapy; Z79.899 Other long term (current) drug therapy; Z80.0 Family history of malignant neoplasm of digestive organs; Z80.8 Family history of malignant neoplasm of other organs or systems; Z86.73 Personal history of transient ischemic attack (TIA), and cerebral infarction without residual deficits; Z87.442 Personal history of urinary calculi; Z96.653 Presence of artificial knee joint, bilateral
CPT/HCPCS: 36415; 71045; 72100; 72131; 80048; 80053; 82805; 83036; 85025; 85027; 86850; 86900; 86901; 86920; 94002; 94003

== ENCOUNTER 2022-07-10 13:18 | Emergency (ER) | payer MEDICARE, OTHER ==
[2022-07-10 13:23] VITALS: BP 135/78; PULSE 101; RESP 16; TEMP 97.4
[2022-07-10] MEDS ORDERED: MORPHINE SULFATE 4 MG/ML SYRINGE IV STA (13:39)
--- NOTE | 2022-07-10 13:50 | ED ---
General Adult HPI - General Chief complaint: Wound/Laceration Stated complaint: Fall Time Seen by Provider: 07/10/22 13:29 Source: patient, EMS Mode of arrival: EMS Limitations: no limitations - History of Present Illness Initial comments: Patient is a pleasant 72-year-old female presents the emergency room via EMS after tripping and falling at [facility] earlier today. She reports that she tripped on the door frame and fell onto her face. She is complaining of some tenderness in the nasal bridge but denies any epistaxis. She developed a lac eration to her left lower lip along with some swelling after the event. She denies any loss of consciousness at the time of the event or afterwards. She denies any dizziness or headache not directly related to trauma. She is on Plavix but denies any other blood thinner usage. She denies any focal ne urological weaknesses, nausea, vomiting, lethargy, chest pain, shortness of breath fevers or chills. She has an extensive past medical history including CAD with NC, hypertension, hyperlipidemia, sleep apnea with CPAP usage, TIA with no residual, asthma, GERD and degenerative disc disease in her lumbar spine. - Related Data Home Medications Medication Instructions Recorded Confirmed Clopidogrel Bisulfate [Clopidogrel] 75 mg PO DAILY 06/10/14 07/10/22 Meloxicam 7.5 mg PO HS 06/10/14 07/10/22 Montelukast [Singulair] 10 mg PO HS 10/01/15 07/10/22 dilTIAZem HCL [dilTIAZem HCL 24Hr 360 mg PO HS 04/07/16 07/10/22 ER] Amitriptyline HCl 50 mg PO BID 01/29/19 07/10/22 Ergocalciferol [Vitamin D2 50,000 unit PO SA 01/29/19 07/10/22 (DRISDOL)] Atorvastatin [Lipitor] 20 mg PO HS 04/23/20 07/10/22 Pantoprazole [Protonix] 40 mg PO DAILY 04/23/20 07/10/22 Isosorbide Mononitrate ER [Imdur] 30 mg PO DAILY 11/08/21 07/10/22 Levothyroxine Sodium [Synthroid] 50 mcg PO DAILY 11/08/21 07/10/22 sitaGLIPtin [Januvia] 100 mg PO DAILY 11/08/21 07/10/22 lisinopriL [Zestril] 2.5 mg PO DAILY 07/10/22 07/10/22 Allergies Allergy/AdvReac Type Severity Reaction Status Date / Time levofloxacin [From Levaquin] Allergy Rapid Verified 07/10/22 15:15 Heart Rate Review of Systems ROS Statement: Those systems with pertinent positive or pertinent negative responses have been documented in the HPI. ROS Other: All systems not noted in ROS Statement are negative. Past Medical History Past Medical History: Asthma, Coronary Artery Disease (CAD), CVA/TIA, Eye Disorder, GERD/Reflux, Hyperlipidemia, Hypertension, Myocardial Infarction (NC), Musculoskeletal Disorder, Sleep Apnea/CPAP/BIPAP Additional Past Medical History / Comment(s): GLAUCOMA JOSE ALFREDO. EYES- GLASSES DAILY USE, IGA RESPONSE TRIGGERS ASTHMA, TRIGGER FINGER, LUMBAR DDD, TIA 2012- NO RESIDUAL, USES C-PAP Last Myocardial Infarction Date:: 09/2005 History of Any Multi-Drug Resistant Organisms: None Reported Past Surgical History: Joint Replacement, Orthopedic Surgery Additional Past Surgical History / Comment(s): LT KNEE ARTHROSCOPY. LT CTR. HX KIDNEY STONE REMOVAL 10/2012, JOSE ALFREDO LASER EYE SURG. PAIN CLINIC PROCEDURES, BREAST BX LT BREAST, right knee replacement, lithotripsy Past Anesthesia/Blood Transfusion Reactions: No Reported Reaction Past Psychological History: No Psychological Hx Reported Smoking Status: Never smoker Past Alcohol Use History: None Reported Past Drug Use History: None Reported - Past Family History Mother Family Medical History: Cancer Additional Family Medical History / Comment(s): FROM THYROID CA, Father Family Medical History: Cancer Additional Family Medical History / Comment(s): FROM STOMACH CA, HX ALCOHOL ISM General Exam Limitations: no limitations General appearance: alert, in no apparent distress Head exam: Present: normocephalic, other (tenderness to nasal bridge without deviation or ecchymosis) Expanded Head exam: Present: laceration (left lower lip minimal depth) Eye exam: Present: normal appearance, PERRL, EOMI. Absent: scleral icterus, conjunctival injection, periorbital swelling ENT exam: Present: normal oropharynx, mucous membranes moist Neck exam: Present: normal inspection, full ROM. Absent: tenderness Respiratory exam: Present: normal lung sounds bilaterally. Absent: respiratory distress, wheezes, rales, rhonchi, stridor Cardiovascular Exam: Present: regular rate, normal rhythm, normal heart sounds. Absent: systolic murmur, diastolic murmur, rubs, gallop, clicks GI/Abdominal exam: Present: soft, normal bowel sounds. Absent: distended, tenderness, guarding, rebound, rigid Extremities exam: Present: normal inspection, full ROM. Absent: pedal edema, joint swelling Back exam: Present: normal inspection Neurological exam: Present: alert, oriented X3, CN II-XII intact Psychiatric exam: Present: normal affect, normal mood Skin exam: Present: other (laceration, ecchymosis and swelling to lower left lip) Course Vital Signs 07/10/22 13:20 Temperature 97.4 F L Pulse Rate 101 H Respiratory 16 Rate Blood Pressure 135/78 O2 Sat by Pulse 97 Oximetry Procedures - Laceration Laceration #1 Consent Obtained: verbal consent Indication: laceration Site: lip Size (cm): 1 Description: irregular, clean Depth: simple, single layer Anesthetic Used: lidocaine 1% Anesthesia Technique: local infiltration Type of Sutures: vicryl Size of Sutures: 5-0 Technique: simple, interrupted Patient Tolerated Procedure: well, no complications Medical Decision Making - Medical Decision Making 72-year-old with fall and facial trauma on Plavix. Will check CT of the facial bones along with brain and cervical spine. Laceration to lip obvious need for closure at this time will continue to apply ice packs and monitor laceration after decrease in swelling.. Will check CBC BMP and PT/INR for baseline after fall. Pain to lip and nasal bridge. Will give morphine for pain. Pain improved with morphine. CT of the cervical spine and brain without acute findings. Chronic right matter changes consistent with small vessel disease and degenerative disc disease in her neck. No fractures or dislocation on CT facial bones. CBC shows chronic anemia; labs stable. Decreased swelling to lip laceration. Depth at the center laceration indicating need for one suture to be placed. Will insert suture. Will give starter pack for Tylenol 3 for pain control. Tolerated lip laceration closure without complications. Advised to keep uti lizing ice as needed for up to 20 minutes at a time for swelling of her left. Sutures are absorbable and will dissolve without need for removal. Discuss concussive symptoms and return parameters to the emergency room. Case discussed with Dr. Alcantar. - Lab Data Result diagrams: 07/10/22 14:22 07/10/22 14:22 Lab Results 07/10/22 07/10/22 07/10/22 Range/Units 14:22 14:22 14:22 WBC 8.1 (3.8-10.6) k/uL RBC 4.71 (3.80-5.40) m/uL Hgb 10.5 L (11.4-16.0) gm/dL Hct 35.1 (34.0-46.0) % MCV 74.5 L (80.0-100.0) fL MCH 22.2 L (25.0-35.0) pg MCHC 29.8 L (31.0-37.0) g/dL RDW 18.2 H (11.5-15.5) % Plt Count 276 (150-450) k/uL MPV 7.8 Neutrophils % 64 % Lymphocytes % 26 % Monocytes % 5 % Eosinophils % 4 % Basophils % 1 % Neutrophils # 5.2 (1.3-7.7) k/uL Lymphocytes # 2.1 (1.0-4.8) k/uL Monocytes # 0.4 (0-1.0) k/uL Eosinophils # 0.3 (0-0.7) k/uL Basophils # 0.0 (0-0.2) k/uL Hypochromasia Marked Anisocytosis Slight Microcytosis Moderate PT 10.6 (9.0-12.0) sec INR 1.0 (<1.2) Sodium 141 (137-145) mmol/L Potassium 4.6 (3.5-5.1) mmol/L Chloride 106 (98-107) mmol/L Carbon Dioxide 24 (22-30) mmol/L Anion Gap 11 mmol/L BUN 16 (7-17) mg/dL Creatinine 0.75 (0.52-1.04) mg/dL Est GFR (CKD-EPI)AfAm >90 (>60 ml/min/1.73 sqM) Est GFR (CKD-EPI)NonAf 81 (>60 ml/min/1.73 sqM) Glucose 92 (74-99) mg/dL Calcium 9.2 (8.4-10.2) mg/dL Disposition Clinical Impression: Laceration, Fall Disposition: HOME SELF-CARE Condition: Stable Instructions (If sedation given, give patient instructions): Fall Prevention for Older Adults (ED), Laceration (ED), Concussion (ED) Additional Instructions: Please use overlies Tylenol 3 starter pack for pain as needed. Continue to utilize ice for lip swelling as needed for up to 20 minutes at a time. Soft diet encouraged. Suture to lip is difficult absorbable and will dissolve without need for removal. Please return to the emergency room if any concern for concussive symptoms including any nausea, vomiting, confusion, lethargy, weakness or headache. Please follow-up with your primary care provider. Please return to the Emergency Department if symptoms worsen or any other concerns. Is patient prescribed a controlled substance at d/c from ED?: No Referrals: Richard Tinoco MD [Primary Care Provider] - 1-2 days Time of Disposition: 15:49
[2022-07-10 14:32] LABS: Anisocytosis Slight; Basophils % (A) 1 %; Eosinophils # (A) 0.3 k/uL (0-0.7); Eosinophils % (A) 4 %; HCT 35.1 % (34.0-46.0); HGB 10.5 gm/dL (11.4-16.0); Hypochromasia Marked; Lymphocytes # (A) 2.1 k/uL (1.0-4.8); Lymphocytes % (A) 26 %; MCH 22.2 pg (25.0-35.0); MCHC 29.8 g/dL (31.0-37.0); MCV 74.5 fL (80.0-100.0); Mean Platelet Volume 7.8; Microcytosis Moderate; Monocytes # (A) 0.4 k/uL (0-1.0); Monocytes % (A) 5 %; Neutrophils # (A) 5.2 k/uL (1.3-7.7); Neutrophils % (A) 64 %; Platelet Count 276 k/uL (150-450); RBC 4.71 m/uL (3.80-5.40); RDW 18.2 % (11.5-15.5); WBC 8.1 k/uL (3.8-10.6)
[2022-07-10 14:42] LABS: African American GFR (CKD) >90 (>60 ml/min/1.73 sqM); Anion Gap 11 mmol/L; Blood Urea Nitrogen 16 mg/dL (7-17); Calcium 9.2 mg/dL (8.4-10.2); Carbon Dioxide 24 mmol/L (22-30); Chloride 106 mmol/L (98-107); Glucose 92 mg/dL (74-99); Non-African American GFR(CKD) 81 (>60 ml/min/1.73 sqM); Potassium 4.6 mmol/L (3.5-5.1); Sodium 141 mmol/L (137-145)
[2022-07-10 14:47] LABS: Prothrombin Time 10.6 sec (9.0-12.0)
--- NOTE | 2022-07-10 15:08 | CT ---
EXAMINATION TYPE: CT facial bones wo con CT DLP: 1611.9 mGycm, Automated exposure control for dose reduction was used. DATE OF EXAM: 07/10/2022 2:48 PM COMPARISON: CT brain 07/10/2022, CT cervical spine 07/10/2022. CLINICAL INDICATION:Female, 72 years old with history of fall; PHH, fall, pain in lip TECHNIQUE: Multiple unenhanced axial CT images were obtained of the facial bones soft tissue and bone windows. Coronal, axial and sagittal reformatted images were also provided in soft tissue and bone windows and submitted for interpretation. FINDINGS: Beam hardening artifact from dental hardware is present. There is no evidence of fracture, subluxatio n, dislocation, or significant soft tissue swelling. The orbital contents are unremarkable. The tempo ral-mandibular joints appear symmetric. The visualized portion of the paranasal sinuses appear clear. Aphakia changes bilaterally. IMPRESSION: No evidence for facial bone fracture.
--- NOTE | 2022-07-10 15:12 | CT ---
EXAMINATION TYPE: CT brain cspine wo con CT DLP: 1611.9 mGycm, Automated exposure control for dose reduction was used. DATE OF EXAM: 07/10/2022 2:48 PM COMPARISON: CT facial bone 07/10/2022. CLINICAL INDICATION:Female, 72 years old with history of fall on Plavix; fall, pain in lip TECHNIQUE: Brain: Multiple axial CT images of the brain were obtained without IV contrast. C-spine: Axial CT images from the skull base to the inferior aspect of T2 we obtained without intrave nous contrast. Coronal and sagittal reformatted images were also reviewed. FINDINGS: Brain: Extra-axial spaces: No abnormal extra-axial fluid collections. Ventricular system: Within normal limits Cerebral parenchyma: No acute intraparenchymal hemorrhage or mass effect. The gallagher-white junction is well differentiated. Scattered hypoattenuating areas are seen within the white matter. Cerebellum: Unremarkable. Mass effect: No evidence of midline shift. Intracranial vasculature: Atherosclerotic calcifications of the intracranial vessels. Soft tissues: Normal. Calvarium/osseous structures: No depressed skull fracture. Paranasal sinuses and mastoid air cells: Clear. Visualized orbits: Bilateral aphakia Cervical spine: Fracture: None. Osseous structures: Multilevel degenerative disc disease changes with endplate spurring and disc oste ophyte complex's. Vertebral alignment: Reversal of the cervical lordosis which is likely due to positioning. The cervic al and cervicothoracic junctions are normally aligned. Spinal canal/Neural Foramina: Disc osteophyte complexes at C4-C5, C5-C6 and C6-C7 with at least mild spinal canal stenosis. No evidence for significant neural foraminal stenosis. Neck soft tissues: Prevertebral soft tissues are within normal limits. Other: The airway is patent. The lung apices are clear. IMPRESSION: 1. No acute intracranial process. 2. Nonspecific white matter changes, likely secondary to chronic small vessel ischemic disease. 3. No evidence of cervical spine fracture. 4. Moderate multilevel degenerative disc disease.
[2022-07-10] MEDS ORDERED: LIDOCAINE 1% INJ 10MG/ML (20 ML MDV) SQ ONE (15:26)
[2022-07-10] MEDS ORDERED: ACET/COD 300 MG/30 MG STARTER PACK 6 TAB BTL PO STA (15:30)
== END 2022-07-10 15:57 | disposition home or self-care (01) ==
LOC: EC 13:18
DX: W19.XXXA Unspecified fall, initial encounter (principal); S01.511A Laceration without foreign body of lip, initial encounter
CPT/HCPCS: 36415; 80048; 85025; 85610; 72125; 70486; 70450; 99284; J2270; J2001

== ENCOUNTER 2022-10-11 17:26 | Inpatient (IN) | payer MEDICARE, OTHER ==
[2022-10-11] MEDS ORDERED: SODIUM CHLORIDE 0.9% 1,000 ML IV STA (18:48)
[2022-10-11] MEDS ORDERED: KETOROLAC 15 MG/ML 1 ML VIAL IVP STA (18:49)
[2022-10-11] MEDS ORDERED: ONDANSETRON 4 MG/2 ML VIAL IVP ONE (19:01)
[2022-10-11 19:28] LABS: Appearance,Urine Clear (Clear); Bacteria,Urine Rare /hpf; Bilirubin,Urine Negative (Negative); Blood,Urine Small (Negative); Color,Urine Light Yellow; Glucose,Urine (UA) Negative (Negative); Ketones,Urine Negative (Negative); Leukocyte Esterase,Urine Large (Negative); Nitrite,Urine Negative (Negative); Protein,Urine Negative (Negative); RBC,Urine 43 /hpf (0-5); Specific Gravity,Urine 1.014 (1.001-1.035); Squamous Epithelial Cell,Urine 2 /hpf (0-4); Urobilinogen,Urine <2.0 mg/dL (<2.0); WBC,Urine 42 /hpf (0-5)
[2022-10-11 19:36] LABS: Albumin 4.1 g/dL (3.5-5.0); Anisocytosis Slight; Basophils # (A) 0.1 k/uL (0-0.2); Basophils % (A) 0 %; Calcium 8.6 mg/dL (8.4-10.2); Eosinophils # (A) 0.2 k/uL (0-0.7); Eosinophils % (A) 2 %; HGB 10.7 gm/dL (11.4-16.0); Hypochromasia Marked; Lymphocytes # (A) 1.9 k/uL (1.0-4.8); Lymphocytes % (A) 14 %; MCH 24.6 pg (25.0-35.0); MCHC 31.4 g/dL (31.0-37.0); MCV 78.4 fL (80.0-100.0); Mean Platelet Volume 8.2; Microcytosis Slight; Monocytes # (A) 0.6 k/uL (0-1.0); Monocytes % (A) 4 %; Neutrophils # (A) 10.4 k/uL (1.3-7.7); Neutrophils % (A) 78 %; Platelet Count 235 k/uL (150-450); Potassium 4.4 mmol/L (3.5-5.1); RBC 4.34 m/uL (3.80-5.40); RDW 16.4 % (11.5-15.5); Total Bilirubin 0.3 mg/dL (0.2-1.3); Total Protein 7.1 g/dL (6.3-8.2); WBC 13.4 k/uL (3.8-10.6)
--- NOTE | 2022-10-11 20:54 | CT ---
EXAMINATION TYPE: CT abdomen pelvis wo con CT DLP: 847 mGycm, Automated exposure control for dose reduction was used. DATE OF EXAM: 10/11/2022 7:45 PM COMPARISON: CT abdomen pelvis most recent from 10/13/2020 CLINICAL INDICATION:Female, 72 years old with history of left flank pain; Left side flank pain. Hx of Kidney stones TECHNIQUE: Axial CT of the abdomen and pelvis. Sagittal and coronal reformats were created on a [employer] workstation. Contrast used: None Oral contrast used: without Oral Contrast FINDINGS: LOWER CHEST: Unremarkable ABDOMEN LIVER: Diffusely hypoattenuating parenchyma. GALLBLADDER AND BILE DUCTS: The gallbladder is surgically absent. PANCREAS: Unremarkable. SPLEEN: Unremarkable. ADRENAL GLANDS: Unremarkable. KIDNEYS AND URETERS: No evidence of right hydronephrosis. Right ureter is felt to be within normal li mits. Scattered calcifications near its course are felt to be outside the ureter. The left kidney demonstrates moderate hydronephrosis secondary to obstructing calculus measuring 6 mm in distal left ureter. Additional nonobstructing 6 mm calculus in the left kidney noted. PELVIS BLADDER: Unremarkable REPRODUCTIVE: The uterus is surgically absent. ABDOMEN & PELVIS STOMACH AND BOWEL: No evidence of bowel obstruction. PERITONEUM: No evidence of pneumoperitoneum or free fluid. VASCULATURE: Moderate atherosclerotic calcifications are present throughout the abdominal aorta and i ts branches. No evidence of aortic aneurysm. MUSCULOSKELETAL: No acute osseous abnormalities, postsurgical changes to the spine from L2 to S1. Add itional iliac fixation screws through the sacroiliac joints. Hardware all appears intact. Postsurgica l changes to the lamina is present with fluid collection in the surgical bed. LYMPH NODES: No gross evidence for lymphadenopathy. SOFT TISSUE/ABDOMINAL WALL: Fat-containing umbilical hernia. IMPRESSION: 1. Moderate left hydronephrosis secondary obstructing 6 mm calculus in the distal left ureter. Addit ional nonobstructing left renal calculus. 2. Postsurgical changes of the spine with surgical bed fluid collection could represent pseudomening ocele versus seroma. If there is concern consider MRI of the spine with and without IV contrast. 3. Hepatic steatosis.
[2022-10-11] MEDS ORDERED: TAMSULOSIN 0.4 MG CAP.ER.24H PO STA (20:57)
[2022-10-11] MEDS ORDERED: ONDANSETRON 4 MG/2 ML VIAL IVP PRN (21:18)
--- NOTE | 2022-10-11 23:55 | ED ---
Abdominal Pain HPI - General Chief Complaint: Abdominal Pain Stated Complaint: Kidney stone Time Seen by Provider: 10/11/22 18:26 Source: patient Mode of arrival: ambulatory Limitations: no limitations - History of Present Illness Initial Comments: Patient is a 72-year-old female presents to the emergency department with a chief complaint of left side pain. Patient states pain started this morning. Describes it as a sharp pain with radiation to the left back. States pain feels typical of kidney stones which she has history of. She reports nausea without vomiting. Denies fever, chills, upper abdominal pain, burning with urination, increased urinary frequency, increased urinary urgency, blood in urine. Does admit to trouble starting urinary stream. Patient has history of lithotripsy with Dr. Cevallos. - Related Data Home Medications Medication Instructions Recorded Confirmed Meloxicam 7.5 mg PO HS 06/10/14 10/11/22 Montelukast [Singulair] 10 mg PO HS 10/01/15 10/11/22 dilTIAZem HCL [dilTIAZem HCL 24Hr 360 mg PO DAILY 04/07/16 10/11/22 ER] Amitriptyline HCl 50 mg PO BID 01/29/19 10/11/22 Atorvastatin [Lipitor] 20 mg PO HS 04/23/20 10/11/22 Pantoprazole [Protonix] 40 mg PO DAILY 04/23/20 10/11/22 Isosorbide Mononitrate ER [Imdur] 30 mg PO DAILY 11/08/21 10/11/22 Levothyroxine Sodium [Synthroid] 50 mcg PO DAILY 11/08/21 10/11/22 sitaGLIPtin [Januvia] 100 mg PO DAILY 11/08/21 10/11/22 Aspirin EC [Ecotrin Low Dose] 81 mg PO DAILY 10/11/22 10/11/22 lisinopriL [Zestril] 5 mg PO DAILY 10/11/22 10/11/22 Allergies Allergy/AdvReac Type Severity Reaction Status Date / Time levofloxacin [From Levaquin] Allergy Rapid Verified 10/11/22 17:41 Heart Rate Review of Systems ROS Statement: Those systems with pertinent positive or pertinent negative responses have been documented in the HPI. ROS Other: All systems not noted in ROS Statement are negative. Past Medical History Past Medical History: Asthma, Coronary Artery Disease (CAD), CVA/TIA, Eye Disorder, GERD/Reflux, Hyperlipidemia, Hypertension, Myocardial Infarction ([place]), Musculoskeletal Disorder, Sleep Apnea/CPAP/BIPAP Additional Past Medical History / Comment(s): GLAUCOMA JOSE ALFREDO. EYES- GLASSES DAILY USE, IGA RESPONSE TRIGGERS ASTHMA, TRIGGER FINGER, LUMBAR DDD, TIA 2012- NO RESIDUAL, USES C-PAP Last Myocardial Infarction Date:: 09/2005 History of Any Multi-Drug Resistant Organisms: None Reported Past Surgical History: Joint Replacement, Orthopedic Surgery Additional Past Surgical History / Comment(s): LT KNEE ARTHROSCOPY. LT CTR. HX KIDNEY STONE REMOVAL 10/2012, JOSE ALFREDO LASER EYE SURG. PAIN CLINIC PROCEDURES, BREAST BX LT BREAST, right knee replacement, lithotripsy Past Anesthesia/Blood Transfusion Reactions: No Reported Reaction Past Psychological History: No Psychological Hx Reported Smoking Status: Never smoker Past Alcohol Use History: None Reported Past Drug Use History: None Reported - Past Family History Mother Family Medical History: Cancer Additional Family Medical History / Comment(s): FROM THYROID CA, Father Family Medical History: Cancer Additional Family Medical History / Comment(s): FROM STOMACH CA, HX ALCOHOLISM General Exam Limitations: no limitations General appearance: alert, in no apparent distress Respiratory exam: Present: normal lung sounds bilaterally. Absent: respiratory distress, wheezes, rales, rhonchi, stridor Cardiovascular Exam: Present: regular rate, normal rhythm, normal heart sounds. Absent: systolic murmur, diastolic murmur, rubs, gallop, clicks GI/Abdominal exam: Present: soft, normal bowel sounds. Absent: distended, tenderness, guarding, rebound, rigid Back exam: Present: CVA tenderness (L), paraspinal tenderness (left lumbar). Absent: vertebral tenderness Neurological exam: Present: alert, oriented X3, CN II-XII intact Psychiatric exam: Present: normal affect, normal mood Skin exam: Present: warm, dry, intact, normal color. Absent: rash Course Vital Signs 10/11/22 10/11/22 17:39 20:59 Temperature 98.4 F 97.7 F Pulse Rate 89 77 Respiratory 20 16 Rate Blood Pressure 133/69 133/84 O2 Sat by Pulse 97 96 Oximetry Medical Decision Making - Medical Decision Making This is a 72-year-old gentleman with left flank pain. Afebrile. Laboratory studies significant for mild leukocytosis at 13.4. Kidney function is normal. Urinalysis reveals 43 rbc's and [address] of the abdomen and pelvis without contrast obtained and interpreted by me which shows moderate left hydronephrosis secondary to obstructing calculus in the distal left ureter at 6 mm. There is also incidental finding of postsurgical changes of the spine with surgical bed fluid collection which could represent pseudomeningocele versus seroma. Pain and nausea controlled. With older age and infectious stone, discussed admission vs. outpatient treatment with patient. Patient will be admitted for IV antibiotics. Rocephin given in the emergency department. Case discussed with Dr. Black who accepts admission. Dr. Cevallos on consult. Dr. Syed also on consult for possible seroma on CT s/p lumbar fusion in January. Dr. Martines is my attending. - Lab Data Result diagrams: 10/11/22 19:03 10/11/22 19:03 Lab Results 10/11/22 10/11/22 10/11/22 Range/Units 19:03 19:03 19:03 WBC 13.4 H (3.8-10.6) k/uL RBC 4.34 (3.80-5.40) m/uL Hgb 10.7 L (11.4-16.0) gm/dL Hct 34.0 (34.0-46.0) % MCV 78.4 L (80.0-100.0) fL MCH 24.6 L (25.0-35.0) pg MCHC 31.4 (31.0-37.0) g/dL RDW 16.4 H (11.5-15.5) % Plt Count 235 (150-450) k/uL MPV 8.2 Neutrophils % 78 % Lymphocytes % 14 % Monocytes % 4 % Eosinophils % 2 % Basophils % 0 % Neutrophils # 10.4 H (1.3-7.7) k/uL Lymphocytes # 1.9 (1.0-4.8) k/uL Monocytes # 0.6 (0-1.0) k/uL Eosinophils # 0.2 (0-0.7) k/uL Basophils # 0.1 (0-0.2) k/uL Hypochromasia Marked Anisocytosis Slight Microcytosis Slight Sodium 136 L (137-145) mmol/L Potassium 4.4 (3.5-5.1) mmol/L Chloride 105 (98-107) mmol/L Carbon Dioxide 23 (22-30) mmol/L Anion Gap 8 mmol/L BUN 19 H (7-17) mg/dL Creatinine 0.96 (0.52-1.04) mg/dL Est GFR (CKD-EPI)AfAm 69 (>60 ml/min/1.73 sqM) Est GFR (CKD-EPI)NonAf 60 (>60 ml/min/1.73 sqM) Glucose 113 H (74-99) mg/dL Plasma Lactic Acid Vishnu 1.4 (0.7-2.0) mmol/L Calcium 8.6 (8.4-10.2) mg/dL Total Bilirubin 0.3 (0.2-1.3) mg/dL AST 23 (14-36) U/L ALT 18 (4-34) U/L Alkaline Phosphatase 151 H (38-126) U/L Total Protein 7.1 (6.3-8.2) g/dL Albumin 4.1 (3.5-5.0) g/dL Lipase 70 (23-300) U/L Urine Color Urine Appearance (Clear) Urine pH (5.0-8.0) Ur Specific [place]aks (1.001-1.035) Urine Protein (Negative) Urine Glucose (UA) (Negative) Urine Ketones (Negative) Urine Blood (Negative) Urine Nitrite (Negative) Urine Bilirubin (Negative) Urine Urobilinogen (<2.0) mg/dL Ur Leukocyte Esterase (Negative) Urine RBC (0-5) /hpf Urine WBC (0-5) /hpf Ur Squamous Epith Cells (0-4) /hpf Urine Bacteria (None) /hpf 10/11/22 Range/Units 19:15 WBC (3.8-10.6) k/uL RBC (3.80-5.40) m/uL Hgb (11.4-16.0) gm/dL Hct (34.0-46.0) % MCV (80.0-100.0) fL MCH (25.0-35.0) pg MCHC (31.0-37.0) g/dL RDW (11.5-15.5) % Plt Count (150-450) k/uL MPV Neutrophils % % Lymphocytes % % Monocytes % % Eosinophils % % Basophils % % Neutrophils # (1.3-7.7) k/uL Lymphocytes # (1.0-4.8) k/uL Monocytes # (0-1.0) k/uL Eosinophils # (0-0.7) k/uL Basophils # (0-0.2) k/uL Hypochromasia Anisocytosis Microcytosis Sodium (137-145) mmol/L Potassium (3.5-5.1) mmol/L Chloride (98-107) mmol/L Carbon Dioxide (22-30) mmol/L Anion Gap mmol/L BUN (7-17) mg/dL Creatinine (0.52-1.04) mg/dL Est GFR (CKD-EPI)AfAm (>60 ml/min/1.73 sqM) Est GFR (CKD-EPI)NonAf (>60 ml/min/1.73 sqM) Glucose (74-99) mg/dL Plasma Lactic Acid Vishnu (0.7-2.0) mmol/L Calcium (8.4-10.2) mg/dL Total Bilirubin (0.2-1.3) mg/dL AST (14-36) U/L ALT (4-34) U/L Alkaline Phosphatase (38-126) U/L Total Protein (6.3-8.2) g/dL Albumin (3.5-5.0) g/dL Lipase (23-300) U/L Urine Color Light Yellow Urine Appearance Clear (Clear) Urine pH 6.0 (5.0-8.0) Ur Specific [place] 1.014 (1.001-1.035) Urine Protein Negative (Negative) Urine Glucose (UA) Negative (Negative) Urine Ketones Negative (Negative) Urine Blood Small H (Negative) Urine Nitrite Negative (Negative) Urine Bilirubin Negative (Negative) Urine Urobilinogen <2.0 (<2.0) mg/dL Ur Leukocyte Esterase Large H (Negative) Urine RBC 43 H (0-5) /hpf Urine WBC 42 H (0-5) /hpf Ur Squamous Epith Cells 2 (0-4) /hpf Urine Bacteria Rare H (None) /hpf Disposition Clinical Impression: Left flank pain, Kidney stone, Nausea, Seroma after procedure Disposition: ADMITTED IP TO THIS [facility] Condition: Good Referrals: Richard Tinoco MD [Primary Care Provider] - 1-2 days
[2022-10-12] MEDS: KETOROLAC 15 MG/ML 1 ML VIAL IVP PRN ×3 (01:59→19:31)
--- NOTE | 2022-10-12 06:54 | P.CNOR ---
History of Present Illness - HPI Consult date: 10/12/22 Consult reason: other ( Kidney stones) History of present illness: 72-year-old female presented for flank pain. She states it feels like she has kidney stones. She has had kidney stones in the past and this feels exactly the same. States is very painful. She denies no back pain or leg pain at this time she states she is otherwise doing well from her back surgery. She denies any fevers or chills other than that brought about by pain. She denies any numbness or tingling. No bowel or bladder issues. Review of Systems 14 points review of systems completed and as stated in HPI, all other systems reviewed are negative. Past Medical History Past Medical History: Asthma, Coronary Artery Disease (CAD), CVA/TIA, Eye Disorder, GERD/Reflux, Hyperlipidemia, Hypertension, Myocardial Infarction ([place]), Musculoskeletal Disorder, Sleep Apnea/CPAP/BIPAP Additional Past Medical History / Comment(s): GLAUCOMA JOSE ALFREDO. EYES- GLASSES DAILY USE, IGA RESPONSE TRIGGERS ASTHMA, TRIGGER FINGER, LUMBAR DDD, TIA 2012- NO RESIDUAL, USES C-PAP Last Myocardial Infarction Date:: 09/2005 History of Any Multi-Drug Resistant Organisms: None Reported Past Surgical History: Joint Replacement, Orthopedic Surgery Additional Past Surgical History / Comment(s): LT KNEE ARTHROSCOPY. LT CTR. HX KIDNEY STONE REMOVAL 10/2012, JOSE ALFREDO LASER EYE SURG. PAIN CLINIC PROCEDURES, BREAST BX LT BREAST, right knee replacement, lithotripsy Past Anesthesia/Blood Transfusion Reactions: No Reported Reaction Past Psychological History: No Psychological Hx Reported Smoking Status: Never smoker Past Alcohol Use History: None Reported Past Drug Use History: None Reported - Past Family History Mother Family Medical History: Cancer Additional Family Medical History / Comment(s): FROM THYROID [place], Father Family Medical History: Cancer Additional Family Medical History / Comment(s): FROM STOMACH [place], HX ALCOHOLISM Medications and Allergies Home Medications Medication Instructions Recorded Confirmed Type Meloxicam 7.5 mg PO HS 06/10/14 10/11/22 History Montelukast [Singulair] 10 mg PO HS 10/01/15 10/11/22 History dilTIAZem HCL [dilTIAZem HCL 24Hr 360 mg PO DAILY 04/07/16 10/11/22 History ER] Amitriptyline HCl 50 mg PO BID 01/29/19 10/11/22 History Atorvastatin [Lipitor] 20 mg PO HS 04/23/20 10/11/22 History Pantoprazole [Protonix] 40 mg PO DAILY 04/23/20 10/11/22 History Isosorbide Mononitrate ER [Imdur] 30 mg PO DAILY 11/08/21 10/11/22 History Levothyroxine Sodium [Synthroid] 50 mcg PO DAILY 11/08/21 10/11/22 History sitaGLIPtin [Januvia] 100 mg PO DAILY 11/08/21 10/11/22 History Aspirin EC [Ecotrin Low Dose] 81 mg PO DAILY 10/11/22 10/11/22 History lisinopriL [Zestril] 5 mg PO DAILY 10/11/22 10/11/22 History Allergies Allergy/AdvReac Type Severity Reaction Status Date / Time levofloxacin [From Levaquin] Allergy Rapid Verified 10/11/22 17:41 Heart Rate Physical Examination Osteopathic Statement: *. No significant issues noted on an osteopathic structural exam other than those noted in the History and Physical/Consult. Physical Exam: -Patient is alert and oriented 3 appears well-nourished well-hydrated is in no acute distress. They do not appear septic. -There is No TTP about her incision or her back. She does have flank pain however -Incision is CDI, no EEE, no drainage -Upper extremities show 5 out of 5 strength in all major muscle groups. -Lower extremities with 5 out of 5 strength in all major muscle groups -There is FROM that is painless of the b/l UE and LE in all major joints. negative logroll negative straight leg raise bilaterally -They are intact to light touch sensation in C5 to T1 and L2 to S1 nerve distribution. -DTR 2/4 all upper and lower extremities -Patient has palpable distal pulses all 4 ext -Compartments are soft and compressible. -Patient shows a negative Matt's -Neg Hoffmans b/l -Neg Clonus b/l -Neg babinski b/l Cranial nerves II through XII are grossly intact. Results CT is reviewed there is question of postoperative fluid collection which is minimal if that is difficult to determine on CT MRI would better quantify however this is not necessary as the patient has no issues no pain and her incision is clean and dry hardware is in good position and holding steady. - Labs Labs: Abnormal Lab Results - Last 24 Hours (Table) 10/11/22 10/11/22 10/11/22 Range/Units 19:03 19:03 19:15 WBC 13.4 H (3.8-10.6) k/uL Hgb 10.7 L (11.4-16.0) gm/dL MCV 78.4 L (80.0-100.0) fL MCH 24.6 L (25.0-35.0) pg RDW 16.4 H (11.5-15.5) % Neutrophils # 10.4 H (1.3-7.7) k/uL Sodium 136 L (137-145) mmol/L BUN 19 H (7-17) mg/dL Glucose 113 H (74-99) mg/dL Alkaline Phosphatase 151 H (38-126) U/L Urine Blood Small H (Negative) Ur Leukocyte Esterase Large H (Negative) Urine RBC 43 H (0-5) /hpf Urine WBC 42 H (0-5) /hpf Urine Bacteria Rare H (None) /hpf H & H 10/11/22 Range/Units 19:03 Hgb 10.7 L (11.4-16.0) gm/dL Hct 34.0 (34.0-46.0) % Result Diagrams: 10/11/22 19:03 10/11/22 19:03 Assessment and Plan Assessment: 72-year-old female status post L2 to pelvis revision decompression fusion in January 2022 doing well flank pain with kidney stones on CT Plan: I discussed the patient's exam findings as well as her CT with her at this time there is no orthopedic surgical intervention which is warranted. The patient has kidney stones and will be treated accordingly. She will follow-up in office
[2022-10-12 07:19] LABS: Glucose,Whole Blood 104 mg/dL (70-110)
--- NOTE | 2022-10-12 08:20 | P.GSCN ---
History of Present Illness Consult date: 10/12/22 History of present illness: 72 yo female known to for kidney stones. She presents to the er with left flank pain. She was found to have a 6 mm distal left ureteral stone. She also has a 6 mm left upper pole stone. She recently had major back surgery and has a seroma around the surgical site. Her urine is inflammed. HEr wbc is 13k but she is afebrile. She has some pain yet this am. Review of Systems All systems: negative - Constitutional Denies fever, Denies weight loss - EENT Eyes: denies blurred vision Ears, nose, mouth and throat: Denies dysphagia - Cardiovascular Denies chest pain, Denies shortness of breath - Respiratory Denies cough, Denies 7 - Gastrointestinal Reports as per HPI - Genitourinary Genitourinary: Denies dysuria, Denies hematuria - Integumentary Denies rash, Denies unusual bruising - Neurological Denies headaches, Denies syncope - Hematologic/Lymphatic Denies easy bleeding, Denies easy bruising Past Medical History Past Medical History: Asthma, Coronary Artery Disease (CAD), CVA/TIA, Eye Disorder, GERD/Reflux, Hyperlipidemia, Hypertension, Myocardial Infarction ([place]), Musculoskeletal Disorder, Sleep Apnea/CPAP/BIPAP Additional Past Medical History / Comment(s): GLAUCOMA JOSE ALFREDO. EYES- GLASSES DAILY USE, IGA RESPONSE TRIGGERS ASTHMA, TRIGGER FINGER, LUMBAR DDD, TIA 2012- NO RESIDUAL, USES C-PAP Last Myocardial Infarction Date:: 09/2005 History of Any Multi-Drug Resistant Organisms: None Reported Past Surgical History: Joint Replacement, Orthopedic Surgery Additional Past Surgical History / Comment(s): LT KNEE ARTHROSCOPY. LT CTR. HX KIDNEY STONE REMOVAL 10/2012, JOS EALFREDO LASER EYE SURG. PAIN CLINIC PROCEDURES, BREAST BX LT BREAST, right knee replacement, lithotripsy Past Anesthesia/Blood Transfusion Reactions: No Reported Reaction Past Psychological History: No Psychological Hx Reported Smoking Status: Never smoker Past Alcohol Use History: None Reported Past Drug Use History: None Reported - Past Family History Mother Family Medical History: Cancer Additional Family Medical History / Comment(s): FROM THYROID [place], Father Family Medical History: Cancer Additional Family Medical History / Comment(s): FROM STOMACH [place], HX ALCOHOLISM Medications and Allergies Home Medications Medication Instructions Recorded Confirmed Type Meloxicam 7.5 mg PO HS 06/10/14 10/11/22 History Montelukast [Singulair] 10 mg PO HS 10/01/15 10/11/22 History dilTIAZem HCL [dilTIAZem HCL 24Hr 360 mg PO DAILY 04/07/16 10/11/22 History ER] Amitriptyline HCl 50 mg PO BID 01/29/19 10/11/22 History Atorvastatin [Lipitor] 20 mg PO HS 04/23/20 10/11/22 History Pantoprazole [Protonix] 40 mg PO DAILY 04/23/20 10/11/22 History Isosorbide Mononitrate ER [Imdur] 30 mg PO DAILY 11/08/21 10/11/22 History Levothyroxine Sodium [Synthroid] 50 mcg PO DAILY 11/08/21 10/11/22 History sitaGLIPtin [Januvia] 100 mg PO DAILY 11/08/21 10/11/22 History Aspirin EC [Ecotrin Low Dose] 81 mg PO DAILY 10/11/22 10/11/22 History lisinopriL [Zestril] 5 mg PO DAILY 10/11/22 10/11/22 History Allergies Allergy/AdvReac Type Severity Reaction Status Date / Time levofloxacin [From Levaquin] Allergy Rapid Verified 10/11/22 17:41 Heart Rate Surgical - Exam Vital Signs Temp Pulse Resp BP Pulse Ox 98.4 F 89 20 133/69 97 10/11/22 17:39 10/11/22 17:39 10/11/22 17:39 10/11/22 17:39 10/11/22 17:39 - General well developed, well nourished - Eyes normal ocular movement, no icteric - ENT no hearing loss, no congestion - Neck no masses, trachea midline - Respiratory normal respiratory effort, clear to auscultation - Abdomen mild llq discomfort Abdomen: soft, non tender, no guarding, no rigid, no rebound - Integumentary no rash, no abnormal pigmentation - Neurologic no disoriented, no combative - Psychiatric oriented to time, oriented to person, oriented to place, speech is normal, memory intact Results - Labs 10/11/22 19:03 10/11/22 19:03 Abnormal Lab Results - Last 24 Hours (Table) 10/11/22 10/11/22 10/11/22 Range/Units 19:03 19:03 19:15 WBC 13.4 H (3.8-10.6) k/uL Hgb 10.7 L (11.4-16.0) gm/dL MCV 78.4 L (80.0-100.0) fL MCH 24.6 L (25.0-35.0) pg RDW 16.4 H (11.5-15.5) % Neutrophils # 10.4 H (1.3-7.7) k/uL Sodium 136 L (137-145) mmol/L BUN 19 H (7-17) mg/dL Glucose 113 H (74-99) mg/dL Alkaline Phosphatase 151 H (38-126) U/L Urine Blood Small H (Negative) Ur Leukocyte Esterase Large H (Negative) Urine RBC 43 H (0-5) /hpf Urine WBC 42 H (0-5) /hpf Urine Bacteria Rare H (None) /hpf Diabetes panel 10/11/22 Range/Units 19:03 Sodium 136 L (137-145) mmol/L Potassium 4.4 (3.5-5.1) mmol/L Chloride 105 (98-107) mmol/L Carbon Dioxide 23 (22-30) mmol/L BUN 19 H (7-17) mg/dL Creatinine 0.96 (0.52-1.04) mg/dL Glucose 113 H (74-99) mg/dL Calcium 8.6 (8.4-10.2) mg/dL AST 23 (14-36) U/L ALT 18 (4-34) U/L Alkaline Phosphatase 151 H (38-126) U/L Total Protein 7.1 (6.3-8.2) g/dL Albumin 4.1 (3.5-5.0) g/dL Calcium panel 10/11/22 Range/Units 19:03 Calcium 8.6 (8.4-10.2) mg/dL Albumin 4.1 (3.5-5.0) g/dL Pituitary panel 10/11/22 Range/Units 19:03 Sodium 136 L (137-145) mmol/L Potassium 4.4 (3.5-5.1) mmol/L Chloride 105 (98-107) mmol/L Carbon Dioxide 23 (22-30) mmol/L BUN 19 H (7-17) mg/dL Creatinine 0.96 (0.52-1.04) mg/dL Glucose 113 H (74-99) mg/dL Calcium 8.6 (8.4-10.2) mg/dL Adrenal panel 10/11/22 Range/Units 19:03 Sodium 136 L (137-145) mmol/L Potassium 4.4 (3.5-5.1) mmol/L Chloride 105 (98-107) mmol/L Carbon Dioxide 23 (22-30) mmol/L BUN 19 H (7-17) mg/dL Creatinine 0.96 (0.52-1.04) mg/dL Glucose 113 H (74-99) mg/dL Calcium 8.6 (8.4-10.2) mg/dL Total Bilirubin 0.3 (0.2-1.3) mg/dL AST 23 (14-36) U/L ALT 18 (4-34) U/L Alkaline Phosphatase 151 H (38-126) U/L Total Protein 7.1 (6.3-8.2) g/dL Albumin 4.1 (3.5-5.0) g/dL - Imaging CT scan - abdomen: report reviewed, image reviewed CT scan - pelvis: report reviewed, image reviewed Assessment and Plan Assessment: Impression: left ureteral stone with obstruction. sp back surgery Plan: We will see how the patient does today. I will add some ivf to see if we can flush the stone. out If she is still having pain then I will do a stone manipulation tomorrow.
[2022-10-12] MEDS: DEXTROSE 5%-0.45% NACL 1,000 ML IV SCH ×2 (08:36→17:37)
[2022-10-12 11:46] LABS: Glucose,Whole Blood 104 mg/dL (70-110)
[2022-10-12] MEDS ORDERED: HYDROcodone/APAP 5-325MG 1 EACH TAB PO PRN (12:23)
[2022-10-12] MEDS: TAMSULOSIN 0.4 MG CAP.ER.24H PO SCH (13:14)
[2022-10-12 17:06] LABS: Glucose,Whole Blood 129 mg/dL (70-110)
[2022-10-12] MEDS: DILTIAZEM CD 180 MG CAP.ER.24H PO SCH (17:34)
[2022-10-12 20:06] LABS: Glucose,Whole Blood 129 mg/dL (70-110)
[2022-10-12 20:16] VITALS: RESP 16
[2022-10-12] MEDS: AMITRIPTYLINE HCL 50 MG TAB PO SCH (20:32)
[2022-10-12] MEDS ORDERED: MONTELUKAST 10 MG TAB PO SCH (21:00)
[2022-10-12] MEDS ORDERED: ATORVASTATIN 20 MG TAB PO SCH (21:00)
[2022-10-13] MEDS: DEXTROSE 5%-0.45% NACL 1,000 ML IV SCH (03:06)
[2022-10-13 05:20] VITALS: TEMP 98
[2022-10-13] MEDS ORDERED: LEVOTHYROXINE 50 MCG TAB PO SCH (06:30)
[2022-10-13 07:16] LABS: Glucose,Whole Blood 118 mg/dL (70-110)
[2022-10-13] MEDS ORDERED: PANTOPRAZOLE 40 MG TABLET PO SCH (07:30)
--- NOTE | 2022-10-13 08:51 | P.PN ---
Subjective Progress Note Date: 10/13/22 Patient is a 72-year-old female presented to the emergency department on 10/11/22 with a chief complaint of left side pain. She reported nausea without vomiting. Denied fever, chills, upper abdominal pain, burning with urination, increased urinary frequency, increased urinary urgency, blood in urine. Did admit to trouble starting urinary stream. She was found to have a 6 mm distal left ureteral stone. She also has a 6 mm left upper pole stone. Patient has history of lithotripsy with Dr. Cevallos. She recently had major back surgery and has a seroma around the surgical site. The patient was examined by me and I concur with the above note. I will see in the office next week or sooner prn if the pain returns significantly, Hiram Cevallos MD Objective - Vital Signs Vital signs: Vital Signs Temp 98 F 10/13/22 05:00 Pulse 80 10/13/22 05:00 Resp 16 10/13/22 05:00 BP 113/71 10/13/22 05:00 Pulse Ox 91 L 10/13/22 05:00 FiO2 Intake & Output 10/12/22 10/13/22 10/13/22 18:59 06:59 18:59 Intake Total 1200 Balance 1200 Intake: Intake, IV Titration 1200 Amount Dextrose 5%-0.45% NaCl 1, 1200 000 ml @ 100 mls/hr IV . Q10H [facility] Rx#:[id number] Other: Voiding Method Toilet Toilet # Voids 2 - Exam - General well developed, well nourished - Eyes normal ocular movement, no icteric - ENT no hearing loss, no congestion - Neck no masses, trachea midline - Respiratory normal respiratory effort, clear to auscultation - Abdomen Abdomen: soft, non tender, no guarding, no rigid, no rebound - Integumentary warm and dry - Neurologic no disoriented - Psychiatric oriented to time, oriented to person, oriented to place, speech is normal, memory intact - Labs CBC & Chem 7: 10/11/22 19:03 10/11/22 19:03 Labs: Abnormal Lab Results - Last 24 Hours (Table) 10/12/22 10/12/22 10/13/22 Range/Units 17:05 20:01 07:14 POC Glucose (mg/dL) 129 H 129 H 118 H (70-110) mg/dL Microbiology - Last 24 Hours (Table) 10/11/22 19:15 Urine Culture - Preliminary Urine,Clean Catch Assessment and Plan Assessment: This morning the patient states she is feeling better and her pain is controlled. She is not sure if she has passed the stone. Recommend discharging the patient home today. If pain persists stone manipulation can be scheduled on an outpatient basis. (1) Kidney stone Current Visit: Yes Status: Acute Code(s): N20.0 - CALCULUS OF KIDNEY SNOMED Code(s): 15687048 Plan: - Patient may be discharged from a urologic standpoint - Increase fluid intake - Follow appt with Dr. Cevallos 10/18 or 10/19 - Have KUB x-ray done before follow up appointment with Dr. Cevallos - Continue P[place] as needed for pain Impression and plan of care have been directed as dictated by the signing physic ian. Yani Kitchen nurse practitioner acting as scribe for signing physician. Yani Kitchen [facility] Palliative Care/Urology [facility] [phone] Email: [email or web address] Time with Patient: Less than 30
[2022-10-13] MEDS ORDERED: LINAGLIPTIN 5 MG TABLET PO SCH (09:00)
[2022-10-13] MEDS ORDERED: ISOSORBIDE MONONITRATE ER 30 MG TAB.ER.24H PO SCH (09:00)
[2022-10-13] MEDS ORDERED: lisinopriL 5 MG TAB PO SCH (09:00)
[2022-10-13] MEDS ORDERED: ASPIRIN 81 MG PO SCH (09:00)
[2022-10-13 09:18] VITALS: BP 125/77; PULSE 92
[2022-10-13] MEDS: DILTIAZEM CD 180 MG CAP.ER.24H PO SCH (09:19)
[2022-10-13] MEDS: TAMSULOSIN 0.4 MG CAP.ER.24H PO SCH (09:19)
[2022-10-13] MEDS: AMITRIPTYLINE HCL 50 MG TAB PO SCH (09:19)
--- NOTE | 2022-10-13 17:25 | P.HPIM ---
History of Present Illness H&P Date: 10/13/22 Chief Complaint: Left flank pain This is a 72-year-old female with past medical history of L2 to pelvis revision decompression fusion January 2022, lithotripsy ,asthma, coronary artery disease, CVA/TIA, GERD, hyperlipidemia, hypertension, sleep apnea, posterior arthritis and multiple other medical issues presented to the ER with complaints of left- sided flank pain, urinary frequency and blood in her urine. Radiology studies reported moderate left hydronephrosis secondary to obstructing 6 mm distal left ureteral stone as well as a nonobstructing 6 mm left upper pole stone. Possible pseudomeningocele versus seroma at previous postsurgical spine site-evaluated by orthopedic surgery, radiology films reviewed-questionable postoperative fluid collection minimal with no further orthopedic surgical intervention warranted at this time. Afebrile, WBC 13.4, BUN 19, creatinine 0.96, UA reporting rare bacteria, 42 WBCs, large leukocytes, negative nitrates, culture pending. Evaluated by urology, IV fluids initiated. Ambulating, pain improving. Review of Systems ROS Statement: Those systems with pertinent positive or pertinent negative responses have been documented in the HPI. ROS Other: All systems not noted in ROS Statement are negative. Past Medical History Past Medical History: Asthma, Coronary Artery Disease (CAD), CVA/TIA, Eye Disorder, GERD/Reflux, Hyperlipidemia, Hypertension, Myocardial Infarction ([place]), Musculoskeletal Disorder, Sleep Apnea/CPAP/BIPAP Additional Past Medical History / Comment(s): GLAUCOMA JOSE ALFREDO. EYES- GLASSES DAILY USE, IGA RESPONSE TRIGGERS ASTHMA, TRIGGER FINGER, LUMBAR DDD, TIA 2012- NO RESIDUAL, USES C-PAP Last Myocardial Infarction Date:: 09/2005 History of Any Multi-Drug Resistant Organisms: None Reported Past Surgical History: Joint Replacement, Orthopedic Surgery Additional Past Surgical History / Comment(s): LT KNEE ARTHROSCOPY. LT CTR. HX KIDNEY STONE REMOVAL 10/2012, JOSE ALFREDO LASER EYE SURG. PAIN CLINIC PROCEDURES, BREAST BX LT BREAST, right knee replacement, lithotripsy Past Anesthesia/Blood Transfusion Reactions: No Reported Reaction Past Psychological History: No Psychological Hx Reported Smoking Status: Never smoker Past Alcohol Use History: None Reported Past Drug Use History: None Reported - Past Family History Mother Family Medical History: Cancer Additional Family Medical History / Comment(s): FROM THYROID [place], Father Family Medical History: Cancer Additional Family Medical History / Comment(s): FROM STOMACH [place], HX ALCOHOLISM Medications and Allergies Home Medications Medication Instructions Recorded Confirmed Type Meloxicam 7.5 mg PO HS 06/10/14 10/11/22 History Montelukast [Singulair] 10 mg PO HS 10/01/15 10/11/22 History dilTIAZem HCL [dilTIAZem HCL 24Hr 360 mg PO DAILY 04/07/16 10/11/22 History ER] Amitriptyline HCl 50 mg PO BID 01/29/19 10/11/22 History Atorvastatin [Lipitor] 20 mg PO HS 04/23/20 10/11/22 History Pantoprazole [Protonix] 40 mg PO DAILY 04/23/20 10/11/22 History Isosorbide Mononitrate ER [Imdur] 30 mg PO DAILY 11/08/21 10/11/22 History Levothyroxine Sodium [Synthroid] 50 mcg PO DAILY 11/08/21 10/11/22 History sitaGLIPtin [Januvia] 100 mg PO DAILY 11/08/21 10/11/22 History Aspirin EC [Ecotrin Low Dose] 81 mg PO DAILY 10/11/22 10/11/22 History lisinopriL [Zestril] 5 mg PO DAILY 10/11/22 10/11/22 History HYDROcodone/APAP 5-325MG [Lamoure 1 tab PO Q6HR PRN 3 Days #12 tab 10/13/22 Rx 5-325] Tamsulosin [Flomax] 0.4 mg PO PC-BRKFST #30 cap 10/13/22 Rx Allergies Allergy/AdvReac Type Severity Reaction Status Date / Time levofloxacin [From Levaquin] Allergy Rapid Verified 10/11/22 17:41 Heart Rate Physical Exam Vitals: Vital Signs Temp Pulse Pulse Resp BP BP Pulse Ox 10/12/22 12:39 97.9 F 95 18 115/70 93 L 10/12/22 06:08 97.6 F 89 16 100/61 96 10/11/22 23:25 97.3 F L 95 16 121/70 93 L 10/11/22 22:16 85 16 129/61 10/11/22 20:59 97.7 F 77 16 133/84 96 Intake and Output 10/12/22 10/12/22 10/12/22 06:59 14:59 22:59 Other: Voiding Method Toilet Toilet # Voids 2 2 # Bowel Movements 0 Weight 72.121 kg - Exam GENERAL: Standing up next to bed, ambulating in room, no acute distress HEENT: Pupils are round and equally reacting to light. EOMI. No scleral icterus. No conjunctival pallor. Normocephalic, atraumatic. CARDIOVASCULAR: S1 and S2 present. No murmurs, rubs, or gallops. PULMONARY: Chest is clear to auscultation, no wheezing or crackles. ABDOMEN: Soft, nondistended, left flank tenderness, normoactive bowel sounds. No palpable organomegaly. Positive bowel sounds EXTREMITIES: No cyanosis, clubbing, trace pedal edema. NEUROLOGICAL: Cranial nerves II through XII grossly intact SKIN: Warm and dry, No rashes. Results CBC & Chem 7: 10/11/22 19:03 10/11/22 19:03 Labs: Abnormal Lab Results - Last 24 Hours (Table) 10/11/22 10/11/22 10/11/22 Range/Units 19:03 19:03 19:15 WBC 13.4 H (3.8-10.6) k/uL Hgb 10.7 L (11.4-16.0) gm/dL MCV 78.4 L (80.0-100.0) fL MCH 24.6 L (25.0-35.0) pg RDW 16.4 H (11.5-15.5) % Neutrophils # 10.4 H (1.3-7.7) k/uL Sodium 136 L (137-145) mmol/L BUN 19 H (7-17) mg/dL Glucose 113 H (74-99) mg/dL POC Glucose (mg/dL) (70-110) mg/dL Alkaline Phosphatase 151 H (38-126) U/L Urine Blood Small H (Negative) Ur Leukocyte Esterase Large H (Negative) Urine RBC 43 H (0-5) /hpf Urine WBC 42 H (0-5) /hpf Urine Bacteria Rare H (None) /hpf 10/12/22 Range/Units 17:05 WBC (3.8-10.6) k/uL Hgb (11.4-16.0) gm/dL MCV (80.0-100.0) fL MCH (25.0-35.0) pg RDW (11.5-15.5) % Neutrophils # (1.3-7.7) k/uL Sodium (137-145) mmol/L BUN (7-17) mg/dL Glucose (74-99) mg/dL POC Glucose (mg/dL) 129 H (70-110) mg/dL Alkaline Phosphatase (38-126) U/L Urine Blood (Negative) Ur Leukocyte Esterase (Negative) Urine RBC (0-5) /hpf Urine WBC (0-5) /hpf Urine Bacteria (None) /hpf Microbiology - Last 24 Hours (Table) 10/11/22 19:15 Urine Culture - Preliminary Urine,Clean Catch Thrombosis Risk Factor Assmnt - Choose All That Apply Any of the Below Risk Factors Present?: Yes Each Factor Represents 1 point: Obesity (BMI >25) Other Risk Factors: Yes Each Risk Factor Represents 2 Points: Age 61-74 years Other congenital or acquired thrombophilia - If yes, enter type in comment: No Thrombosis Risk Factor Assessment Total Risk Factor Score: 3 Thrombosis Risk Factor Assessment Level: Moderate Risk Assessment and Plan Assessment: Left flank pain secondary to left ureteral stone with obstruction. History of revision L2 to pelvis decompression fusion, January 2022, CT suggestive of questionable seroma at surgical site, minimal with no intervention warranted as per orthopedic surgery History of Right-sided pneumothorax without tension pneumothorax, status post Thoravent. Degenerative joint disease, osteoarthritis. Chronic intermittent asthma CAD, history of [place] History of CVA/TIA GERD Hyperlipidemia Essential hypertension Obstructive Sleep apnea, CPAP at home. History of IgA deficiency Hypothyroidism Morbid obesity, BMI 32.1 Plan: Continue on current medication regime ,monitoring and symptomatic treatment. Evaluated by urology with recommendations noted and appreciated. Maintaining IV fluids, pain management, Flomax. Discharge planning in progress for tomorrow pending continued improvement, clearance as per urology. The impression and plan of care has been dictated as directed. : I performed a history and examination of this patient, discussed the same with the dictator. I agree with the dictator's note ,documented as a scribe. Any ad ditional findings or plans will be noted.
--- NOTE | 2022-10-14 14:21 | P.DS ---
Providers Date of admission: 10/11/22 21:59 Expected date of discharge: 10/14/22 Attending physician: Dominik Black Consults: 10/11/22 21:13 Consult Physician Stat Consulting Provider: Hiram Cevallos Consult Reason/Comments: septic stone Do you want consulting provider notified?: Already Contacted 10/11/22 21:27 Consult Physician Stat Consulting Provider: Amadeo Syed Consult Reason/Comments: possible post surgical seroma Do you want consulting provider notified?: Yes [facility]: Final Diagnoses: Left flank pain secondary to left ureteral stone with obstruction. History of revision L2 to pelvis decompression fusion, January 2022, CT suggestive of questionable seroma at surgical site, minimal with no intervention warranted as per orthopedic surgery History of Right-sided pneumothorax without tension pneumothorax, status post Thoravent. Degenerative joint disease, osteoarthritis. Chronic intermittent asthma CAD, history of [place] History of CVA/TIA GERD Hyperlipidemia Essential hypertension Obstructive Sleep apnea, CPAP at home. History of IgA deficiency Hypothyroidism Morbid obesity, BMI 32.1 Hospital course:This is a 72-year-old female with past medical history of L2 to pelvis revision decompression fusion January 2022, lithotripsy ,asthma, coronary artery disease, CVA/TIA, GERD, hyperlipidemia, hypertension, sleep apnea, posterior arthritis and multiple other medical issues presented to the ER with complaints of left-sided flank pain, urinary frequency and blood in her urine. Radiology studies reported moderate left hydronephrosis secondary to obstructing 6 mm distal left ureteral stone as well as a nonobstructing 6 mm left upper pole stone. Possible pseudomeningocele versus seroma at previous postsurgical spine site-evaluated by orthopedic surgery, radiology films reviewed-questionable postoperative fluid collection minimal with no further orthopedic surgical intervention warranted at this time. Afebrile, WBC 13.4, BUN 19, creatinine 0.96, UA reporting rare bacteria, 42 WBCs, large leukocytes, negative nitrates, culture pending. Evaluated by urology, IV fluids initiated. Ambulating, pain improving. Pain improved, significant clinical improvement. Patient has been cleared by urology for discharge with recommendations for patient to follow-up next week in the office or sooner should pain returned significantly. Patient will be discharged home today in a stable condition with guarded prognosis. The impression and plan of care has been dictated as directed. : I performed a history and examination of this patient, discussed the same with the dictator. I agree with the dictator's note ,documented as a scribe. Any additional findings or plans will be noted. Patient Condition at Discharge: Stable Plan - Discharge Summary New Discharge Prescriptions: New HYDROcodone/APAP 5-325MG [[place] 5-325] 1 tab PO Q6HR PRN 3 Days #12 tab PRN Reason: Pain Tamsulosin [Flomax] 0.4 mg PO PC-BRKFST #30 cap Continue Meloxicam 7.5 mg PO HS Montelukast [Singulair] 10 mg PO HS dilTIAZem HCL [dilTIAZem HCL 24Hr ER] 360 mg PO DAILY Amitriptyline HCl 50 mg PO BID Atorvastatin [Lipitor] 20 mg PO HS Pantoprazole [Protonix] 40 mg PO DAILY Isosorbide Mononitrate ER [Imdur] 30 mg PO DAILY Aspirin EC [Ecotrin Low Dose] 81 mg PO DAILY lisinopriL [Zestril] 5 mg PO DAILY sitaGLIPtin [Januvia] 100 mg PO DAILY Levothyroxine Sodium [Synthroid] 50 mcg PO DAILY Discharge Medication List Meloxicam 7.5 mg PO HS 06/10/14 [History] Montelukast [Singulair] 10 mg PO HS 10/01/15 [History] dilTIAZem HCL [dilTIAZem HCL 24Hr ER] 360 mg PO DAILY 04/07/16 [History] Amitriptyline HCl 50 mg PO BID 01/29/19 [History] Atorvastatin [Lipitor] 20 mg PO HS 04/23/20 [History] Pantoprazole [Protonix] 40 mg PO DAILY 04/23/20 [History] Isosorbide Mononitrate ER [Imdur] 30 mg PO DAILY 11/08/21 [History] Levothyroxine Sodium [Synthroid] 50 mcg PO DAILY 11/08/21 [History] sitaGLIPtin [Januvia] 100 mg PO DAILY 11/08/21 [History] Aspirin EC [Ecotrin Low Dose] 81 mg PO DAILY 10/11/22 [History] lisinopriL [Zestril] 5 mg PO DAILY 10/11/22 [History] HYDROcodone/APAP 5-325MG [[place] 5-325] 1 tab PO Q6HR PRN 3 Days #12 tab 10/13/22 [Rx] Tamsulosin [Flomax] 0.4 mg PO PC-BRKFST #30 cap 10/13/22 [Rx] Follow up Appointment(s)/Referral(s): Richard Tinoco MD [Primary Care Provider] - 3 Days Hiram Cevallos MD [STAFF PHYSICIAN] - 10/25/22 (patient will call office to schedule after KUB is done) Patient Instructions/Handouts: Hydrocodone/Acetaminophen (By mouth), Tamsulosin (By mouth) Activity/Diet/Wound Care/Special Instructions: - Increase fluid intake - Follow appt with Dr. Cevallos 10/18 or 10/19 - Have KUB x-ray done before follow up appointment with Dr. Cevallos - prescription written and given to patient - Continue [place] as needed for pain - Prescription sent to [facility] Discharge Disposition: HOME SELF-CARE
== END 2022-10-13 12:07 | disposition home or self-care (01) | DRG 694 ==
LOC: EC 17:26 → 4SSUR 21:59 → 5NMEDONC 22:11
PROVIDERS: ADMIT Family Medicine; ATTEND Family Medicine
DX: N20.2 Calculus of kidney with calculus of ureter (principal); L76.34 Postprocedural seroma of skin and subcutaneous tissue following other procedure; E66.01 Morbid (severe) obesity due to excess calories; E03.9 Hypothyroidism, unspecified; K21.9 Gastro-esophageal reflux disease without esophagitis; M19.90 Unspecified osteoarthritis, unspecified site; D72.829 Elevated white blood cell count, unspecified; J45.20 Mild intermittent asthma, uncomplicated; I25.2 Old myocardial infarction; I10 Essential (primary) hypertension; G47.33 Obstructive sleep apnea (adult) (pediatric); E78.5 Hyperlipidemia, unspecified; I25.10 Atherosclerotic heart disease of native coronary artery without angina pectoris; Z68.32 Body mass index [BMI] 32.0-32.9, adult; Z79.82 Long term (current) use of aspirin; Z79.84 Long term (current) use of oral hypoglycemic drugs; Z79.890 Hormone replacement therapy; Z79.899 Other long term (current) drug therapy; Z98.1 Arthrodesis status; Z96.651 Presence of right artificial knee joint; Z87.442 Personal history of urinary calculi; Z86.73 Personal history of transient ischemic attack (TIA), and cerebral infarction without residual deficits; Z88.1 Allergy status to other antibiotic agents; Y84.8 Other medical procedures as the cause of abnormal reaction of the patient, or of later complication, without mention of misadventure at the time of the procedure
CPT/HCPCS: 36415; 74176; 80053; 81001; 83605; 83690; 85025; 87086; 96361; 96374; 96375; 99285

== ENCOUNTER → 2022-10-18 | Outpatient (CLI) | payer MEDICARE, OTHER ==
--- NOTE | 2022-10-18 08:43 | XR ---
EXAMINATION TYPE: XR KUB DATE OF EXAM: 10/18/2022 HISTORY: Pain Comparison: None.Single KUB is submitted for interpretation. Findings: Right renal calculi: None Visualized. Right ureteral calculi: None Visualized. Left renal calculi: 2.3 mm calculus upper pole left kidney. Left ureteral calculi: Distal left ureteral calculus measures 3 mm in transverse dimension. Pelvic calcifications: None Visualized. Bowel gas pattern is unremarkable. No free air. No mass effects. IMPRESSION: 1. As above
== END | disposition home or self-care (01) ==
LOC: RADXRMAIN 08:12
PROVIDERS: ATTEND Urology
DX: N20.0 Calculus of kidney (principal)
CPT/HCPCS: 74018

== ENCOUNTER 2022-10-27 06:47 | Day surgery (SDC) | payer MEDICARE, OTHER ==
[~2022-10-27 06:47] MED LIST changes: -ACETAMINOPHEN TAB 500 MG TAB PO PRN; +AMPICILLIN 1,000 MG in SODIUM CHLORIDE 0.9% 50 ML IVPB PRN; -DEXAMETHASONE SOD PHOSPHATE 4 MG/ML 1 ML VIAL IV ONE; -GABAPENTIN 300 MG CAP PO PRN; +GENTAMICIN 80 MG in SODIUM CHLORIDE 0.9% 100 ML IVPB PRN; -LIDOCAINE 1% (10MG/ML) FOR IV START INTRADERMA PRN; -ONDANSETRON 4 MG/2 ML VIAL IVP ONE; -ONDANSETRON 4 MG/2 ML VIAL IVP PRN; -TRANEXAMIC ACID IN NACL,ISO-OS 1,000 MG in SALINE 1 100ML.BAG IVPB PRN
--- NOTE | 2022-10-27 07:10 | XR ---
EXAMINATION TYPE: XR KUB DATE OF EXAM: 10/27/2022 7:01 AM CLINICAL HISTORY: Kidney stones left-sided. TECHNIQUE: Two supine KUB images of the abdomen are obtained. COMPARISON: Prior KUB x-ray 9 days earlier. FINDINGS: Poorly visualized nephrolithiasis on current study similar to prior. A 7 mm left lateral ca lcification could reflect distal ureter stone unchanged in appearance from prior. More inferior 7 mm calcification new from prior suggests passage into bladder of stone over phlebolith. Cholecystectomy clips are redemonstrated. Extensive surgical changes to the lumbosacral spine redemon strated. Overall nonobstructive bowel gas pattern. Visualized lung bases are clear. IMPRESSION: As above.
[2022-10-27] MEDS ORDERED: LACTATED RINGERS 1,000 ML IV ONE ×3 (07:46→10:59)
[2022-10-27 07:48] LABS: Glucose,Whole Blood 108 mg/dL (70-110)
[2022-10-27] MEDS ORDERED: ONDANSETRON 4 MG/2 ML VIAL ONE (07:50)
[2022-10-27] MEDS ORDERED: DEXAMETHASONE SOD PHOSPHATE 4 MG/ML 1 ML VIAL IVP ONE (07:51)
[2022-10-27] MEDS ORDERED: ONDANSETRON 4 MG/2 ML VIAL IVP ONE ×2 (07:51→08:04)
[2022-10-27] MEDS ORDERED: LIDOCAINE 1% (10MG/ML) FOR IV START INTRADERMA PRN (08:04)
[2022-10-27] MEDS ORDERED: HYDROmorphone 0.5 MG/0.5 ML SYRINGE IVP PRN (08:04)
[2022-10-27] MEDS ORDERED: LACTATED RINGERS 1,000 ML IV SCH (08:04)
[2022-10-27] MEDS ORDERED: DEXAMETHASONE SOD PHOSPHATE 4 MG/ML 1 ML VIAL IV ONE (08:04)
[2022-10-27] MEDS ORDERED: LIDOCAINE 2% INJ 20 MG/ML (2 ML VIAL) ONE (08:58)
[2022-10-27] MEDS ORDERED: PROPOFOL 10 MG/ML 20 ML VIAL IV ONE (08:58)
[2022-10-27] MEDS ORDERED: SUCCINYLCHOLINE CHLORIDE 200 MG/10 ML VIAL IV ONE (08:58)
[2022-10-27] MEDS ORDERED: fentaNYL (PF) 50 MCG/ML 2 ML AMP ONE (08:58)
--- NOTE | 2022-10-27 09:42 | P.OP ---
Date of Procedure: 10/27/22 Preoperative Diagnosis: Left ureteral calculus Postoperative Diagnosis: Same Procedure(s) Performed: Left ureteroscopy with laser lithotripsy Anesthesia: STEVE Surgeon: Hiram Cevallos Estimated Blood Loss (ml): 0 Pathology: other (Stone) Disposition: PACU Indications for Procedure: Patient is 72. She has a 5-6 mm distal ureteral stone on the left she comes for laser lithotripsy she's been unable to pass it in the last couple weeks. Description of Procedure: Patient brought to the operative suite. She's given general anesthesia. She's placed in lithotomy position with sterile prep and drape. Cystoscopy Foroblique lens and 21-Khmer sheath identifies a normal urethra. The bladder mucosa is unremarkable. Fluoroscopy Shows a stone in the left distal ureter. I passed a 7-Khmer semirigid scope in the left ureteral intramural tunnel there is a stone. It is broken into tiny pieces with 365 laser probe. The fragments are flushed out of the left ureter. I passed the scope more proximally and there is a second stone that is also broken into tiny pieces. It is also flushed out of the left ureter. I then pass a semirigid scope up into the left renal pelvis and there are no remaining stones. I do pullout ureteroscopy and see no remaining stones. The ureteroscope is removed. The bladder is drained and stone fragments are collected. The patient is awakened and returned to recovery room in good condition Impression successful left ureteroscopy with laser lithotripsy.
[2022-10-27 09:50] VITALS: TEMP 97
--- NOTE | 2022-10-27 09:53 | FL ---
Fluoroscopy History: LT URETERAL STONE Dr. Cevallos, 4 sec fluoro, 1 image sent
[2022-10-27 11:13] VITALS: RESP 20
[2022-10-27 11:33] VITALS: BP 110/56; PULSE 77
--- NOTE | 2022-10-28 15:13 | P.GSHP ---
History of Present Illness H&P Date: 10/26/22 72 yo female with a history of stones as well as serious thony issues. Was recently in the hospital with a new left ureteral stone. Her pain was controlled and she was sent home to try to pass but was unable to do so. She has a 5 mm distal stone on the left and comes for a left ureteroscopy with laser lithotripsy. - Constitutional Constitutional: Denies chills, Denies fever - EENT Eyes: denies blurred vision, denies pain Ears, nose, mouth and throat: Denies headache, Denies sore throat - Cardiovascular Cardiovascular: Denies chest pain, Denies shortness of breath - Respiratory Respiratory: Denies cough, Denies 7 - Gastrointestinal Gastrointestinal: Denies abdominal pain, Denies diarrhea, Denies nausea, Denies vomiting - Genitourinary (Female) Genitourinary: Denies dysuria, Denies hematuria - Genitourinary (Male) Genitourinary: Denies dysuria, Denies hematuria - Musculoskeletal Musculoskeletal: Denies myalgias - Integumentary Integumentary: Denies pruritus, Denies rash - Neurological Neurological: Denies numbness, Denies weakness - Psychiatric Psychiatric: Denies anxiety, Denies depression - Endocrine Endocrine: Denies fatigue, Denies weight change Past Medical History Past Medical History: Asthma, Coronary Artery Disease (CAD), CVA/TIA, Eye Disorder, GERD/Reflux, Hyperlipidemia, Hypertension, Myocardial Infarction (ID), Musculoskeletal Disorder, Sleep Apnea/CPAP/BIPAP Additional Past Medical History / Comment(s): GLAUCOMA JOSE ALFREDO. EYES- GLASSES DAILY USE, IGA RESPONSE TRIGGERS ASTHMA, TRIGGER FINGER, LUMBAR DDD, TIA 2012- NO RESIDUAL, USES C-PAP Last Myocardial Infarction Date:: 09/2005 History of Any Multi-Drug Resistant Organisms: None Reported Past Surgical History: Joint Replacement, Orthopedic Surgery Additional Past Surgical History / Comment(s): LT KNEE ARTHROSCOPY. LT CTR. HX KIDNEY STONE REMOVAL 10/2012, JOSE ALFREDO LASER EYE SURG. PAIN CLINIC PROCEDURES, BREAST BX LT BREAST, right knee replacement, lithotripsy Past Anesthesia/Blood Transfusion Reactions: No Reported Reaction Past Psychological History: No Psychological Hx Reported Smoking Status: Never smoker Past Alcohol Use History: None Reported Past Drug Use History: None Reported - Past Family History Father Family Medical History: Cancer Additional Family Medical History / Comment(s): FROM STOMACH CA, HX ALCOHOLISM Mother Family Medical History: Cancer Additional Family Medical History / Comment(s): FROM THYROID CA, Medications and Allergies Home Medications Medication Instructions Recorded Confirmed Type Meloxicam 7.5 mg PO HS 06/10/14 10/27/22 History Montelukast [Singulair] 10 mg PO HS 10/01/15 10/27/22 History dilTIAZem HCL [dilTIAZem HCL 24Hr 360 mg PO DAILY 04/07/16 10/27/22 History ER] Amitriptyline HCl 50 mg PO BID 01/29/19 10/27/22 History Atorvastatin [Lipitor] 20 mg PO HS 04/23/20 10/27/22 History Pantoprazole [Protonix] 40 mg PO DAILY 04/23/20 10/27/22 History Isosorbide Mononitrate ER [Imdur] 30 mg PO DAILY 11/08/21 10/27/22 History Levothyroxine Sodium [Synthroid] 50 mcg PO DAILY 11/08/21 10/27/22 History sitaGLIPtin [Januvia] 100 mg PO DAILY 11/08/21 10/27/22 History Aspirin EC [Ecotrin Low Dose] 81 mg PO DAILY 10/11/22 10/27/22 History lisinopriL [Zestril] 5 mg PO DAILY 10/11/22 10/27/22 History HYDROcodone/APAP 5-325MG [[place] 1 tab PO Q6HR PRN 3 Days #12 tab 10/13/22 10/27/22 Rx 5-325] Cholecalciferol (Vitamin D3) 12.5 mcg PO WEEKLY 10/20/22 10/27/22 History [Vitamin D3 (500 Iu/5 ML)] L.acidoph,Paracasei, B.lactis 1 tab PO DAILY 10/20/22 10/27/22 History [Probiotic] Allergies Allergy/AdvReac Type Severity Reaction Status Date / Time levofloxacin [From Levaquin] Allergy Rapid Verified 10/27/22 07:22 Heart Rate Surgical - Exam - General mild distress well developed, well nourished - Eyes normal ocular movement, no icteric - ENT no hearing loss, no congestion - Neck no masses, trachea midline - Respiratory normal respiratory effort, clear to auscultation - Abdomen Abdomen: soft, non tender, no guarding, no rigid, no rebound - Integumentary no rash, no abnormal pigmentation - Neurologic no disoriented, no combative - Psychiatric oriented to time, oriented to person, oriented to place, speech is normal, memory intact Results - Imaging Abdominal x-ray: report reviewed, image reviewed CT scan - abdomen: report reviewed, image reviewed CT scan - pelvis: report reviewed, image reviewed Assessment and Plan Assessment: impression: left ureteral stone with colic. multiple medical illnesses Plan: left ureteroscopy with laser lithotripsy
== END 2022-10-27 12:00 | disposition home or self-care (01) ==
LOC: OR 06:47
PROVIDERS: ATTEND Urology
DX: N20.1 Calculus of ureter (principal); J45.909 Unspecified asthma, uncomplicated; I25.10 Atherosclerotic heart disease of native coronary artery without angina pectoris; K21.9 Gastro-esophageal reflux disease without esophagitis; H57.9 Unspecified disorder of eye and adnexa; I10 Essential (primary) hypertension; E11.9 Type 2 diabetes mellitus without complications; E78.5 Hyperlipidemia, unspecified; I25.2 Old myocardial infarction; M79.9 Soft tissue disorder, unspecified; G47.33 Obstructive sleep apnea (adult) (pediatric); H40.9 Unspecified glaucoma; M51.36 Other intervertebral disc degeneration, lumbar region; Z99.89 Dependence on other enabling machines and devices; Z98.890 Other specified postprocedural states; Z80.0 Family history of malignant neoplasm of digestive organs; Z80.8 Family history of malignant neoplasm of other organs or systems; Z81.1 Family history of alcohol abuse and dependence; Z79.899 Other long term (current) drug therapy; Z79.1 Long term (current) use of non-steroidal anti-inflammatories (NSAID); Z79.890 Hormone replacement therapy; Z79.82 Long term (current) use of aspirin; Z88.1 Allergy status to other antibiotic agents; Z86.73 Personal history of transient ischemic attack (TIA), and cerebral infarction without residual deficits; Z79.84 Long term (current) use of oral hypoglycemic drugs
CPT/HCPCS: 82365; 74018; 52353; C1758 ×3; C1769; C1894; J0330; J1100; J2405; J3010; J1580; J0290; J2704; J2001

== ENCOUNTER → 2022-11-25 | Outpatient (CLI) | payer MEDICARE, OTHER ==
--- NOTE | 2022-11-25 09:57 | BD ---
EXAMINATION TYPE: Axial Bone Density DATE OF EXAM: 11/25/2022 COMPARISON: 11/17/2020 CLINICAL HISTORY: 72 years year old Female. ICD-10 CODE: Z13.820 SCREENING FOR OSTEOPOROSIS Height: 58" Weight: 164.2 FRAX RISK QUESTIONS: Alcohol (3 or more units per day): Family History (Parent hip fracture): NO Glucocorticoids (More than 3mos): NO (Ex: prednisone, prednisolone, methylprednisolone, dexamethasone, and hydrocortisone). History of Fracture in Adulthood: YES, LEFT HUMERUS Secondary Osteoporosis: 1. Type 1 Diabetes: NO 2. Hyperthyroidism: NO 3. Menopause before 45: YES, AGE 36 4. Malnutrition: NO 5. Chronic liver disease: NO Rheumatoid Arthritis: NO Current Tobacco Use: NO RISK FACTORS HISTORY OF: Hip Fracture (Right/Left): NO History of Wrist Fracture: NO Surgery to Spine/Hip(right/left)/Wrist (right/left): BACK SX, DOMINIK FROM SCARUM/COCCXY THROUGH L SPINE When: 02/11/2022 Family History of Osteoporosis: NO Active: YES Diet low in dairy products/other sources of calcium: YES Postmenopausal woman: YES Lost more than 2 inches in height since high school: YES Frequent falls: NO Poor Health: NO, FAIR [employer] Hyperparathyroidism: NO Adrenal Insufficiency: NO MEDICATIONS: Prednisone or other steroids: NO Which medication: YES, LEVOTHYROXINE How Lon YEAR Osteoporosis Medications: NO Additional Medications: AMITRIPTYLINE, ATORVASTATIN ASPIRIN, DILTIAZEM, ISOSORBIDE, JANUVIA, LEVOTHYROXINE, LISINOPRIL, MELOXICAM, MONTELUKAST, PANTOPRAZ OLE, VIT D Additional History: EXAM MEASUREMENTS: Bone mineral densitometry was performed using the GoodApril System. Bone mineral density about the R hip (g/cm2): 0.632 Bone mineral density about the L hip (g/cm2): 0.658 T Score values are as follows: -----R Neck: -2.9 -----L Neck: -2.7 -----R Total: -1.6 -----L Total: -1.3 Bone mineral density has: DECREASED -4.9% since study of: 11/17/2020 Bone mineral density about the R Wrist (g/cm2): 0.624 T Score values are as follows: -----Dist. R+U: -0.7 -----Prox. R+U: -1.4 -----Radius total: -0.8 Bone mineral density has: DECREASED -4.2% since study of: 11/17/2020 FRAX%s: The graph provided illustrates a DECREASED 26.6% chance for a major osteoporotic fx and a 8.5 % chance for the hips probability for fx in 10 years time. IMPRESSION: Osteoporosis (T Score less than -2.5). There is increased fracture risk and therapy is usually indicated based on age. Re-Screen 1-2 years. NOTE: T-SCORE=SD OF THE YOUNG ADULT MEAN.
== END | disposition home or self-care (01) ==
LOC: RADBDWWP 07:47
PROVIDERS: ATTEND Family Medicine
DX: Z13.820 Encounter for screening for osteoporosis (principal); M81.0 Age-related osteoporosis without current pathological fracture; Z78.0 Asymptomatic menopausal state
CPT/HCPCS: 77080

== ENCOUNTER → 2022-11-25 | Outpatient (CLI) | payer MEDICARE, OTHER ==
--- NOTE | 2022-11-26 08:18 | MM ---
Reason for Exam: Screening (asymptomatic). Last screening mammogram was performed 12 month(s) ago. Patient History: Menarche at age 17. First Full-Term at age 26. Left ovary removed at age 36. Right ovary removed at age 36. Hysterectomy at age 36. Postmenopausal. Estrogen for 12 years from age 36 until age 48. Progesterone for 12 years from age 36 until age 48. Hormonal Contraceptives for 4 years from age 22 until age 26. 2002, Benign Excisional Biopsy on the left side. 04/25/2003, High risk Stereotactic Core Biopsy on the left side. 05/06/2000, Benign Stereotactic Core Biopsy on the left side. Risk Values: Tyra 5 year model risk: 2.6%. NCI Lifetime model risk: 7.3%. Prior Study Comparison: 11/16/2019 Bilateral Screening Mammogram, [facility]. 11/18/2020 Bilateral Screening Mammogram, [facility]. 11/23/2021 Bilateral Screening Mammogram, [facility]. Tissue Density: There are scattered fibroglandular densities. Findings: Analyzed By CAD. There is no suspicious group of microcalcifications or new suspicious mass in either breast. Biopsy clip within the left breast. Postexcisional changes redemonstrated within the upper outer quadrant of the left breast. Stable moles. No significant change from prior exams. Overall Assessment: Benign, BI-RAD 2 Management: Screening Mammogram of both breasts in 1 year. A clinical breast exam by your physician is recommended on an annual basis and results should be correlated with mammographic findings. Electronically signed and approved by: Sunday Mendez D.O.
== END | disposition home or self-care (01) ==
LOC: RADMAMWWP 07:43
PROVIDERS: ATTEND Surgery
DX: Z12.31 Encounter for screening mammogram for malignant neoplasm of breast (principal); R92.8 Other abnormal and inconclusive findings on diagnostic imaging of breast; Z78.0 Asymptomatic menopausal state; Z98.890 Other specified postprocedural states
CPT/HCPCS: 77063; 77067

== ENCOUNTER → 2022-12-03 | Outpatient (CLI) | payer MEDICARE, OTHER ==
[2022-12-03 16:08] VITALS: BP 133/80; PULSE 98; RESP 18; TEMP 98.2
--- NOTE | 2022-12-03 16:44 | P.PN ---
Subjective Progress Note Date: 12/03/22 Principal diagnosis: fibrocystic breast disease fibrocystic breast changes The patient is a 72-year-old white female who comes for breast examination. At this time she has no complaints related to her breast. She has no masses in her breasts. No nipple discharge or skin changes. She has no recent history of any trauma or infection of the breast. He has not complained of any new lumps masses or nodules in her breast. Her last bilateral mammogram was 11-25-22 this was benign BIRAD 2. Caffeine: 2 cups of coffee per day Nicotine: Negative Chocolate: Negative Hormones: Negative Family History: mother: thyroid cancer father: stomach cancer Hormonal History: menarche: 17 : 2, 2 children, breast fed: one, first at 27 menopause: hysterectomy at 41, cyst on ovaries, took both ovaries as well BCP: 8 years hormones: 10 years, estrogen Past Surgical History: 1. hysterectomy and bilateral oophrectomy 2. spinal fusion 3. appy 4. gallbladder 5. ankle fusion 6. breast biopsy 7. bladder surgery 8. heart cath 9. left total knee replacement 10. kidney stone/ lithotripsy 11. right total knee replacement 12. cataract surgery 13. spinal fusion L2 to S1 14. kidney stones removed in October 2022 Past Medical History: 1. hypothyroid 2. HTN 3. HINI flu in hospital 4. diabetic/ on metformin 5. back pain/ sciatica Social History smoke: none alcohol; none drugs: none Objective - Vital Signs Vital signs: Vital Signs Temp 98.2 F 12/03/22 16:05 Pulse 98 12/03/22 16:05 Resp 18 12/03/22 16:05 BP 133/80 12/03/22 16:05 Pulse Ox 94 L 12/03/22 16:05 FiO2 Intake & Output 12/02/22 12/03/22 12/03/22 18:59 06:59 18:59 Weight 73.482 kg - Constitutional General appearance: Present: cooperative - EENT Eyes: Present: EOMI ENT: Present: hearing grossly normal - Neck Neck: Present: normal ROM - Respiratory Respiratory: bilateral: CTA - Cardiovascular Rhythm: regular Heart sounds: normal: S1, S2 - Gastrointestinal General gastrointestinal: Present: soft - Integumentary Integumentary: Present: normal turgor - Musculoskeletal Musculoskeletal: Present: gait normal - Psychiatric Psychiatric: Present: A&O x's 3, appropriate affect, intact judgment & insight - Additional findings Additional findings: Breast Exam: BRA: 38C inspection: bilateral grade 3 ptosis palpation: right breast: multi positional exam fibrocystic changes no discrete dominant masses or nodules of concern Right axilla: No adenopathy of concern Left breast: Multi-positional exam fibrocystic changes no discrete dominant masses or nodules of concern; well healed scar left breast Left axilla: No adenopathy of concern Assessment and Plan Assessment: Impression: 1. hypothyroid 2. HTN 3. HINI flu in hospital 4 years ago 4. diabetic/ on metformin 5. back pain/ sciatica 6. Fibrocystic breast changes 7. Recent bilateral mammogram benign BIRADS 2 done 11-25-22 Plan: 1. Repeat bilateral mammogram in 1 year with physician exam at that time 2. Questions or concerns patient to follow up sooner CC: Dr. Tinoco
== END ==
LOC: WWCWWP 15:21
PROVIDERS: ATTEND Surgery
DX: Z12.31 Encounter for screening mammogram for malignant neoplasm of breast (principal); R92.8 Other abnormal and inconclusive findings on diagnostic imaging of breast; E03.9 Hypothyroidism, unspecified; I10 Essential (primary) hypertension; E11.9 Type 2 diabetes mellitus without complications; M54.30 Sciatica, unspecified side; Z88.1 Allergy status to other antibiotic agents

== ENCOUNTER → 2022-12-17 | Outpatient (CLI) | payer MEDICARE, OTHER ==
[~2022-12-17] MED LIST changes: -AMPICILLIN 1,000 MG in SODIUM CHLORIDE 0.9% 50 ML IVPB PRN; -GENTAMICIN 80 MG in SODIUM CHLORIDE 0.9% 100 ML IVPB PRN; +SODIUM CHLORIDE 0.9% 500 ML 500 ML in EMPTY BAG 1 BAG IV PRN; +ZOLEDRONIC ACID 5 MG in SODIUM CHLORIDE 0.9% 100 ML IV NR
[2022-12-17 07:52] VITALS: BP 125/72; PULSE 98; RESP 16; TEMP 97.6
== END ==
LOC: PROCWHC3 07:42
PROVIDERS: ATTEND Family Medicine
DX: M81.0 Age-related osteoporosis without current pathological fracture (principal); Z88.1 Allergy status to other antibiotic agents
CPT/HCPCS: 96365; J3489

== ENCOUNTER → 2022-12-29 | Outpatient (CLI) | payer MEDICARE, OTHER ==
[2022-12-29 10:34] LABS: Basophils # (A) 0.08 X 10*3/uL (0.00-0.10); Basophils % (A) 0.8 %; Eosinophils # (A) 0.26 X 10*3/uL (0.04-0.35); Eosinophils % (A) 2.7 %; HCT 35.1 % (37.2-46.3); HGB 10.5 g/dL (12.0-15.0); Immature Grans, Automated 0.3 %; Lymphocytes # (A) 2.87 X 10*3/uL (0.90-5.00); Lymphocytes % (A) 30.1 %; MCH 24.2 pg (27.0-32.0); MCHC 29.9 g/dL (32.0-37.0); MCV 80.9 fL (80.0-97.0); Mean Platelet Volume 10.5 fL (9.5-12.2); Monocytes % (A) 6.3 %; NRBC Per 100 WBC 0 /100 WBCS (0.0-0.0); Neutrophils # (A) 5.71 X 10*3/uL (1.80-7.70); Neutrophils % (A) 59.8 %; Platelet Count 276 X 10*3/uL (140-440); RBC 4.34 X 10*6/uL (4.10-5.20); RDW 17.5 % (11.5-14.5); WBC 9.55 X 10*3/uL (4.50-10.00)
[2022-12-29 10:45] LABS: ALT 17 U/L (8-44); AST 21 U/L (13-35); African American GFR (CKD) 52.7 (60.0-200.0); Albumin/Globulin Ratio 1.33 (1.60-3.17); Alkaline Phosphatase 140 U/L (41-126); BUN/Creat Ratio 12.25 Ratio (12.00-20.00); Blood Urea Nitrogen 14.7 mg/dL (9.0-27.0); Calcium 8.7 mg/dL (8.7-10.3); Carbon Dioxide 24.2 mmol/L (20.0-27.5); Chloride 106 mmol/L (96-109); Chol/HDL Ratio 2.61 Ratio; Glucose 100 mg/dL (70-110); LDL Cholesterol,Calculated 45.1 mg/dL (0.0-131.0); Non-African American GFR(CKD) 45.4 (60.0-200.0); Potassium 3.8 mmol/L (3.5-5.5); Sodium 141 mmol/L (135-145)
== END | disposition home or self-care (01) ==
LOC: LABWHC1 07:25
PROVIDERS: ATTEND Internal Medicine Cardiovascular Disease
DX: Z00.00 Encounter for general adult medical examination without abnormal findings (principal); E78.2 Mixed hyperlipidemia; I10 Essential (primary) hypertension; H81.10 Benign paroxysmal vertigo, unspecified ear; M81.8 Other osteoporosis without current pathological fracture; E03.9 Hypothyroidism, unspecified; E11.9 Type 2 diabetes mellitus without complications; K21.9 Gastro-esophageal reflux disease without esophagitis
CPT/HCPCS: 36415; 80053; 80061; 84443; 85025

== ENCOUNTER → 2023-03-17 | Outpatient (CLI) | payer MEDICARE, OTHER ==
--- NOTE | 2023-03-17 18:14 | MR ---
EXAMINATION TYPE: MR shoulder RT wo con DATE OF EXAM: 03/17/2023 COMPARISON: None. HISTORY: No prior, injury from fall, right shoulder pain, loss of ROM history RC repair surgery 20 + years ago TECHNIQUE: Multiplanar, multisequence imaging of the right shoulder is performed without contrast. FINDINGS: Rotator Cuff: Distal supraspinatus and infraspinatus tendons are intact. Rotator cuff muscle bulk pre served. Acromioclavicular Joint: Possible prior distal acromion resection with some widening of the acromiocl avicular joint. There is mass effect on the supraspinatus muscle bulk in the distal clavicle sagittal image 6 for reference. Glenohumeral Joint: Moderate to severe narrowing with prominent spur from the inferior medial humeral head seen best image 14 series 401. [id number] size joint effusion. There is 6 to 7 mm oval i ntra-articular loose body anterior to the glenoid on axial image 18 Labrum: The labrum appears grossly intact given limitation of non-arthrogram study. Biceps Tendon: The long head of biceps is in normal location within bicipital groove. Increased centr al signal consistent with partial tearing axial images 14 through 17 and coronal image 10. Bone marrow signal: Extensive edema and subchondral cystic change in the osseous glenoid. Other: No additional significant abnormality is appreciated. IMPRESSION: 1. Advanced glenohumeral joint arthropathy as detailed above. 2. Partial tearing of the long head of biceps tendon. 3. Suspect underlying impingement at level of the distal clavicle.
== END | disposition home or self-care (01) ==
LOC: RADMRIMAIN 10:28
PROVIDERS: ATTEND Orthopaedic Surgery
DX: M19.011 Primary osteoarthritis, right shoulder (principal); M75.111 Incomplete rotator cuff tear or rupture of right shoulder, not specified as traumatic

== ENCOUNTER → 2023-03-25 | Outpatient (CLI) | payer MEDICARE, OTHER ==
--- NOTE | 2023-03-25 13:16 | CT ---
EXAMINATION TYPE: CT shoulder RT wo con DATE OF EXAM: 03/25/2023 COMPARISON: None HISTORY: Arthrex shoulder RT side arthritis. CT DLP: 394.70 mGycm Automated exposure control for dose reduction was used. FINDINGS: There is no fracture or dislocation. There is moderate osteoarthritic change of the glenohumeral joint with spurring of the humeral head a nd multiple subchondral cysts within the glenoid lung with moderate joint space narrowing. The AC joint is intact. IMPRESSION: MODERATE OSTEOARTHRITIC CHANGE OF THE GLENOHUMERAL JOINT DESCRIBED ABOVE
== END | disposition home or self-care (01) ==
LOC: RADCTMAIN 10:56
PROVIDERS: ATTEND Orthopaedic Surgery
DX: M19.011 Primary osteoarthritis, right shoulder (principal)

== ENCOUNTER → 2023-05-02 | Outpatient (CLI) | payer MEDICARE, OTHER | END | disposition home or self-care (01) | LOC: LABPAT 06:58 | PROVIDERS: ATTEND Orthopaedic Surgery | DX: Z01.812 Encounter for preprocedural laboratory examination (principal); Z22.322 Carrier or suspected carrier of Methicillin resistant Staphylococcus aureus; M19.011 Primary osteoarthritis, right shoulder | CPT/HCPCS: 87070 ==

== ENCOUNTER 2023-05-10 07:49 | Day surgery (SDC) | payer MEDICARE, OTHER ==
[2023-05-05 15:43] VITALS: BMI 31.3
--- NOTE | 2023-05-09 10:21 | P.HPOR ---
History of Present Illness H&P Date: 05/09/23 Chief Complaint: Right shoulder pain The patient is a 73-year-old [id number] retired female who presents with progressive right shoulder pain for the past year. She is having pain with any attempted overhead activity and at night. She tried therapy with no real rel ief. She's also tried medications with only partial temporary relief. Review of Systems Negative except as in HPI Past Medical History Past Medical History: Asthma, Coronary Artery Disease (CAD), CVA/TIA, Diabetes Mellitus, GERD/Reflux, Hyperlipidemia, Hypertension, Myocardial Infarction ([place]), Musculoskeletal Disorder, Osteoarthritis (OA), Sleep Apnea/CPAP/BIPAP Additional Past Medical History / Comment(s): IGA RESPONSE TRIGGERS ASTHMA, TRIGGER FINGER, LUMBAR DDD, TIA 2012- NO RESIDUAL, USES C-PAP Last Myocardial Infarction Date:: 09/2005 History of Any Multi-Drug Resistant Organisms: None Reported Past Surgical History: Back Surgery, Heart Catheterization, Joint Replacement, Orthopedic Surgery Additional Past Surgical History / Comment(s): LT KNEE ARTHROSCOPY. LT CTR. HX KIDNEY STONE REMOVAL 10/2012, [facility] ALFR[facility]O LASER EYE SURG. PAIN CLINIC PROCEDURES, BREAST BX LT BREAST, jose alfredo knee replacement, lithotripsy,jose alfredo cataracts,spinal fusion. Previous open right rotator cuff repair Past Anesthesia/Blood Transfusion Reactions: No Reported Reaction Additional Past Anesthesia/Blood Transfusion Reaction / Comment(s): after spinal fusion 02-11-22 was unable to breath on own and was intubated for 24 hrs. no hx blood transfusion Smoking Status: Never smoker - Past Family History Mother Family Medical History: Cancer Additional Family Medical History / Comment(s): FROM THYROID CA, Father Family Medical History: Cancer Additional Family Medical History / Comment(s): FROM STOMACH CA, HX ALCOHOLISM Medications and Allergies Home Medications Medication Instructions Recorded Confirmed Type Meloxicam 7.5 mg PO HS 06/10/14 05/05/23 History dilTIAZem HCL [dilTIAZem HCL 24Hr 360 mg PO QAM 04/07/16 05/05/23 History ER] Amitriptyline HCl 50 mg PO HS 01/29/19 05/05/23 History Atorvastatin [Lipitor] 20 mg PO HS 04/23/20 05/05/23 History Pantoprazole [Protonix] 40 mg PO HS 04/23/20 05/05/23 History Isosorbide Mononitrate ER [Imdur] 30 mg PO QAM 11/08/21 05/05/23 History Levothyroxine Sodium [Synthroid] 50 mcg PO QAM 11/08/21 05/05/23 History sitaGLIPtin [Januvia] 100 mg PO DAILY 11/08/21 05/05/23 History lisinopriL [Zestril] 5 mg PO QAM 10/11/22 05/05/23 History L.acidoph,Paracasei, B.lactis 1 tab PO DAILY 10/20/22 05/05/23 History [Probiotic] Calcium Carbonate/Vitamin D3 1,300 each PO DAILY 05/05/23 05/05/23 History [Calcium 600 mg-D3 20 mcg (800 unit)] Cholecalciferol [Vitamin D3 (25 25 mcg PO DAILY 05/05/23 05/05/23 History Mcg = 1000 Iu)] Ferrous Sulfate [Feosol] 325 mg PO DAILY 05/05/23 05/05/23 History Multivit with Calcium,Iron,Min 1 each PO DAILY 05/05/23 05/05/23 History [Women's Multivitamin] Allergies Allergy/AdvReac Type Severity Reaction Status Date / Time levofloxacin [From Levaquin] Allergy Rapid Verified 05/05/23 15:27 Heart Rate Physical Examination - Shoulder right Appearance: effusion Effusion grade: grade 1 Tenderness with palpation: anterior Pain: with abduction, with forward flexion ROM: forward flexion: 100 degrees (Actively, 140 passively) ROM: internal rotation: lower lumbar ROM: external rotation: 50 degrees Crepitus with motion: Yes Strength: abduction: 5/5 Strength: forward flexion: 5/5 Strength: external rotation: 5/5 Tests: internal impingement tests: positive, external impingment tests: positive Results Patient is a well-developed well-nourished female approximately 4 foot 11, 158 pounds of mesomorphic habitus. HEENT exam is nonfocal, neck supple. She's tender about the right shoulder anterior glenohumeral space. Moderate crepitus is noted. Miles and Neer sign are positive. Her distal neurovascular appears intact in the right upper extremity. - Diagnostic results Shoulder x-ray: image reviewed (3 views of the right shoulder obtained in the office show severe right glenohumeral joint osteoarthrosis with [id number] changes and subchondral sclerosis.) Shoulder MRI: image reviewed (MRI of the right shoulder shows evidence of severe osteoarthrosis involving the glenohumeral joint. The rotator cuff appears to be intact.) Assessment and Plan Assessment: Right severe glenohumeral joint osteoarthrosis Plan: I talked to the patient regarding her condition and treatment options. At this point she is quite limited because of pain related to her osteoarthrosis despite conservative measures. After thorough discussion shelves proceed with surgery. We'll plan to see her right total shoulder arthroplasty. Risks and benefits were discussed at length in layman's terms.
[~2023-05-10 07:49] MED LIST changes: +ACETAMINOPHEN TAB 500 MG TAB PO PRN; +DEXAMETHASONE SOD PHOSPHATE 4 MG/ML 1 ML VIAL IV ONE; +HYDROmorphone 0.5 MG/0.5 ML SYRINGE IVP PRN; +LIDOCAINE 1% (10MG/ML) FOR IV START INTRADERMA PRN; +MELOXICAM 7.5 MG TAB PO PRN; +METOCLOPRAMIDE 5 MG/ML 2 ML VIAL IVP PRN; +ONDANSETRON 4 MG/2 ML VIAL IVP ONE; -SODIUM CHLORIDE 0.9% 500 ML 500 ML in EMPTY BAG 1 BAG IV PRN; +TRANEXAMIC ACID IN NACL,ISO-OS 1,000 MG in SALINE 1 100ML.BAG IVPB PRN; -ZOLEDRONIC ACID 5 MG in SODIUM CHLORIDE 0.9% 100 ML IV NR
[2023-05-10] MEDS: LACTATED RINGERS 1,000 ML IV SCH ×3 (08:40→13:23)
[2023-05-10 08:47] LABS: Glucose,Whole Blood 109 mg/dL (70-110)
[2023-05-10 09:01] LABS: Basophils % (A) 0 %; Eosinophils # (A) 0.2 k/uL (0-0.7); Eosinophils % (A) 2 %; HGB 14.2 gm/dL (11.4-16.0); Lymphocytes # (A) 2.1 k/uL (1.0-4.8); Lymphocytes % (A) 22 %; MCH 29.5 pg (25.0-35.0); MCHC 33.8 g/dL (31.0-37.0); MCV 87.2 fL (80.0-100.0); Mean Platelet Volume 8.8; Monocytes # (A) 0.4 k/uL (0-1.0); Monocytes % (A) 4 %; Neutrophils # (A) 6.7 k/uL (1.3-7.7); Neutrophils % (A) 71 %; Platelet Count 240 k/uL (150-450); RBC 4.82 m/uL (3.80-5.40); RDW 15.2 % (11.5-15.5); WBC 9.4 k/uL (3.8-10.6)
[2023-05-10] MEDS ORDERED: MIDAZOLAM 2 MG/2 ML VIAL IVP ONE (09:02)
[2023-05-10] MEDS ORDERED: fentaNYL (PF) 50 MCG/ML 2 ML AMP IVP ONE (09:03)
--- NOTE | 2023-05-10 09:21 | P.ANPRN ---
Procedure Note - Anesthesia - Nerve Block Performed Right Interscalene Single Time Out Performed: Yes (900) Date of Procedure: 05/10/23 Procedure Start Time: : Procedure Stop Time: :08 Location of Patient: PreOp Indication: Acute Post-Operative Pain, Requested by Surgeon Specifically requested for management of pain by : Memo Pulido Sedation Type: Sedate with meaningful contact maintained Preparation: Sterile Prep Position: Supine (RECUMBENT) Catheter: None Needle Types: Pajunk Needle Gauge: 21 Ultrasound used to visualize needle placement: Yes Ultrasound used to observe medication spread: Yes Injectate: 0.5% Ropivacaine (see comment for volume) (30cc) Blood Aspirated: No Pain Paresthesia on Injection Noted: No Resistance on Injection: Normal Image Stored and Saved: Yes Events: Uneventful and Well Tolerated
[2023-05-10 09:39] LABS: Potassium 4.8 mmol/L (3.5-5.1)
[2023-05-10] MEDS ORDERED: SUCCINYLCHOLINE CHLORIDE 200 MG/10 ML VIAL IV ONE (10:03)
[2023-05-10] MEDS ORDERED: GLYCOPYRROLATE 0.2 MG/ML 2 ML VIAL ONE (10:03)
[2023-05-10] MEDS ORDERED: PROPOFOL 10 MG/ML 20 ML VIAL IV ONE (10:03)
[2023-05-10] MEDS ORDERED: WATER FOR INJECTION, STERILE 10 ML VIAL IV ONE (10:03)
[2023-05-10] MEDS ORDERED: PHENYLEPHRINE-0.9% NACL SYG 1,000 MCG/10 ML SYRINGE ONE (10:03)
[2023-05-10] MEDS ORDERED: MIDAZOLAM 2 MG/2 ML VIAL ONE (10:03)
[2023-05-10] MEDS ORDERED: SUGAMMADEX SODIUM 200 MG/2 ML SDV IV ONE (10:03)
[2023-05-10] MEDS ORDERED: ROPIVACAINE 5 MG/ML 30 ML VIAL ONE (10:03)
[2023-05-10] MEDS ORDERED: NEOSTIGMINE 1 MG/ML 10 ML VIAL ONE (10:03)
[2023-05-10] MEDS ORDERED: fentaNYL (PF) 50 MCG/ML 2 ML AMP ONE (10:03)
[2023-05-10] MEDS ORDERED: VASOPRESSIN 20 UNIT/ML 1 ML VIAL ONE (10:03)
[2023-05-10] MEDS ORDERED: ROCURONIUM 10 MG/ML (5 ML VIAL) IV ONE (10:03)
[2023-05-10] MEDS ORDERED: LACTATED RINGERS 1,000 ML IV ONE ×2 (11:10→11:38)
[2023-05-10] MEDS ORDERED: HYDROmorphone 0.5 MG/0.5 ML SYRINGE IVP PRN (12:18)
[2023-05-10] MEDS ORDERED: SENNOSIDES-DOCUSATE SODIUM 1 EACH TAB PO PRN (12:18)
[2023-05-10] MEDS ORDERED: HYDROcodone/APAP 5-325MG 1 EACH TAB PO PRN (12:18)
--- NOTE | 2023-05-10 12:40 | P.OP ---
Date of Procedure: 05/10/23 Preoperative Diagnosis: Right severe glenohumeral joint osteoarthrosis Postoperative Diagnosis: Same Procedure(s) Performed: Right total shoulder arthroplasty Implants: Arthrex 39 mm trunnion, 39 x 16 mm humeral head, small cage screw, small glenoid component Anesthesia: STEVE, [facility] Surgeon: Memo Pulido Knuckle Bender #1: Justin Raymundo Estimated Blood Loss (ml): 100 Pathology: none sent Condition: stable Disposition: PACU Indications for Procedure: The patient is a 73-year-old female presents with progressive right shoulder pain secondary to osteoarthrosis despite conservative measures. A discussion of the risks and benefits of operative intervention versus continued conservative measures was made with patient. She opted to proceed with surgery. Operative risks to include infection, neurovascular injury, development of blood clots, fracture, possible component loosening/failure need for subsequent procedures was discussed. Informed consent was obtained. Operative Findings: As below Description of Procedure: The patient was brought to the operating room, and after induction of general anesthesia was placed in the beachchair position. The bony prominences were appropriately padded. The right upper extremity was prepped and draped in normal fashion. A deltopectoral incision was then made lateral to the coracoid process extending approximately 12 cm. The skin was incised sharply. Subcutaneous tissues were divided bluntly. Electrocautery was used for hemostasis. The deltopectoral interval was identified and the cephalic vein gently retracted laterally with the deltoid. Subdeltoid adhesions were bluntly dissected. A self-retaining retractor was placed. The clavipectoral fascia was opened and the conjoined tendon gently retracted medially. The upper one third of the pectoralis major was released to help facilitate exposure. The biceps was identified and the sheath was opened. The rotator interval was opened. The biceps was tenotomized and allowed to retract distally. A subscapularis peel was performed and the subscap was tagged with a #2 Ethibond. The humeral head was then exposed releasing the capsule off the humeral neck. The shoulder was gently dislocated. . The cutting guide was placed planning on a cut flush with the rotator cuff insertion /articular surface in 30 of retroversion. The cutting block was pinned in place. The humeral head cut was then made. . Residual inferior osteophytes were carefully removed flush with the [place] cortical bone. The metaphysis was measured most appropriately 39 mm. This central portion was then prepared. A bone protector was placed. A posterior glenoid retractor was placed. The glenoid was then exposed releasing the labrum from the 12-6 o'clock position. Residual labral tissue was removed. The glenoid sized as a small. A guidewire was then inserted planning on the appropriate version. The glenoid was reamed down to a bleeding bony surface. The central peg hole was drilled. The alignment guide was placed in the peripheral peg holes drilled. The inferior keel was punched. The trial small glenoid was placed and was fully seated. There was good anterior to posterior and inferior to superior fit. The trial component was removed. Pulsatile lavage was utilized. The bony surface was dried. The peripheral peg holes were then pressurized with cement utilizing a syringe. Excess cement was removed. A central pegged glenoid was then placed and was fully seated. This was gently impacted. This was held in place until the cement had sufficiently hardened. Attention was then paid again towards preparing the proximal humerus. A small cage screw was planned. This was then inserted by hand and appropriately tensioned. Good purchase was obtained. A trial 39 x 16 mm humeral head was placed. The shoulder was gently reduced. It was taken through a range of motion. It was felt to be stable in flexion and extension with internal and ex ternal rotation. I felt there was adequate buddhist of soft tissue tension. The shoulder was gently dislocated. The trial head was then removed. Suture tacks were then placed in the lesser tuberosity for reattachment of the subscapularis. The 39 x 16 mm humeral head was gently impacted. The shoulder was then gently reduced and taken through range of motion and was felt to be stable. Pulsatile lavage was utilized. The fiber tapes were then crisscrossed and 2 push lock anchors were placed in the bicipital groove for subscapularis reattachment. The rotator interval was closed with #2 Ethibond suture. There was minimal drainage at this point therefore a deep drain was not placed. The deltopectoral interval was closed with interrupted 2-0 Vicryl sutures. The subcu tissues were reapproximated with interrupted 2-0 Vicryl sutures. The skin was reprepped with 3-0 subcuticular Prolene suture. Steri-Strips were applied. A sterile dressing was applied in addition to a sling. The patient was then awoken from general anesthesia and transferred to recovery room in good condition. Blood loss was estimated at 100 mL. No complications were incurred. Sponge and needle counts were correct at the end the case. Justin LR assisted to the major components the case to include positioning, exposure, resection, implantation, and closure.
--- NOTE | 2023-05-10 13:16 | XR ---
EXAMINATION TYPE: XR shoulder limited RT DATE OF EXAM: 05/10/2023 1:07 PM INDICATION: Patient age:Female; 73 years old; Reason for study: post-op eval; COMPARISON: CT right shoulder 03/17/2023, right shoulder radiograph 03/22/2023 TECHNIQUE: The right shoulder was examined in the projection. FINDINGS: Postsurgical changes from arthroplasty with humeral head component. Hardware appears intact with appr opriate alignment. There is associated soft tissue gas and edema. There is sclerosis involving the gl enoid. No acute fracture or dislocation. No acute process within the visualized portion of the chest. IMPRESSION: Postsurgical changes from right shoulder arthroplasty. Hardware appears intact with appropriate align ment.
[2023-05-10 13:20] LABS: Glucose,Whole Blood 153 mg/dL (70-110)
[2023-05-10] MEDS ORDERED: DEXTROSE 50% SYRINGE 50 ML IVP PRN ×2 (15:08)
[2023-05-10] MEDS: PANTOPRAZOLE 40 MG/10 ML VIAL IVP SCH (16:13)
[2023-05-10 16:15] LABS: Glucose,Whole Blood 196 mg/dL (70-110)
[2023-05-10] MEDS: INSULIN ASPART (NovoLOG) 100 UNIT/ML VIAL SQ SCH ×2 (16:20→21:52)
[2023-05-10 21:14] LABS: Glucose,Whole Blood 164 mg/dL (70-110)
[2023-05-10] MEDS: HYDROcodone/APAP 5-325MG 1 EACH TAB PO PRN (23:00)
[2023-05-11] MEDS: HYDROmorphone 0.5 MG/0.5 ML SYRINGE IVP PRN ×5 (01:22→20:31)
[2023-05-11] MEDS ORDERED: HYDROcodone/APAP 7.5-325MG 1 EACH TAB PO ONE (04:17)
[2023-05-11 06:23] LABS: Glucose,Whole Blood 125 mg/dL (70-110)
[2023-05-11] MEDS: INSULIN ASPART (NovoLOG) 100 UNIT/ML VIAL SQ SCH ×4 (06:50→21:16)
[2023-05-11] MEDS: HYDROcodone/APAP 5-325MG 1 EACH TAB PO PRN ×2 (06:57→16:19)
[2023-05-11] MEDS: ASPIRIN 325 MG TAB PO SCH (09:01)
[2023-05-11] MEDS: PANTOPRAZOLE 40 MG/10 ML VIAL IVP SCH (09:01)
[2023-05-11 11:05] LABS: Glucose,Whole Blood 112 mg/dL (70-110)
[2023-05-11 11:54] LABS: Basophils % (A) 0 %; Eosinophils # (A) 0.1 k/uL (0-0.7); Eosinophils % (A) 0 %; HCT 37.9 % (34.0-46.0); HGB 12.3 gm/dL (11.4-16.0); Lymphocytes # (A) 1.6 k/uL (1.0-4.8); Lymphocytes % (A) 9 %; MCH 29.5 pg (25.0-35.0); MCHC 32.4 g/dL (31.0-37.0); MCV 91.3 fL (80.0-100.0); Mean Platelet Volume 9.7; Monocytes # (A) 0.7 k/uL (0-1.0); Monocytes % (A) 4 %; Neutrophils # (A) 15.5 k/uL (1.3-7.7); Neutrophils % (A) 86 %; Platelet Count 205 k/uL (150-450); RBC 4.15 m/uL (3.80-5.40); RDW 15.1 % (11.5-15.5); WBC 17.9 k/uL (3.8-10.6)
[2023-05-11] MEDS: LEVOTHYROXINE 50 MCG TAB PO SCH (12:08)
[2023-05-11] MEDS ORDERED: hydrOXYzine pamoate 25 MG CAP PO PRN (12:35)
--- NOTE | 2023-05-11 12:35 | P.PN ---
Subjective Progress Note Date: 05/11/23 Principal diagnosis: Right severe glenohumeral joint osteoarthrosis Patient was seen at bedside this morning sitting up in chair with sling to right upper extremity and bulky dressing present over right shoulder. Patient says she is in her moderate to severe amount of pain. Patient says she is doing better now that she didn't overnight. Patient states that she has been up wa lking a little bit. Patient denies any dizziness/headaches. Patient says she has urinated several times since surgery yesterday. Patient says she has not had bowel movement yet. Patient says she is hoping to get her pain under better control before going home. Patient hoping to stay one more night in hospital. Patient denies chest pain, fever, shortness of breath, nausea, vomiting, change in vision, loss of bowel/bladder control. Objective - Vital Signs Vital signs: Vital Signs Temp 97.9 F 05/11/23 07:15 Pulse 92 05/11/23 07:15 Resp 17 05/11/23 07:15 BP 108/72 05/11/23 07:15 Pulse Ox 92 L 05/11/23 07:15 FiO2 Intake & Output 05/10/23 05/11/23 05/11/23 18:59 06:59 18:59 Intake Total 2049 Output Total 100 Balance 1950 Weight 74.8 kg Intake: IV 2049 Output: Estimated Blood Loss 100 Other: # Voids 1 3 1 - Exam Right shoulder: Incision is clean, dry, and intact. The bulky dressing is in good condition. Sling is present to right upper extremity. Patient does have full range of motion right wrist and right elbow in flexion/extension. Leather Roller strength 5/5 bilaterally. Radial pulses intact bilaterally, 2+. There is minimal soft tissue swelling and ecchymosis surrounding the medial and lateral aspects of the incision. Calf is soft, no tenderness with palpation. Plantar flexion, dorsif lexion, EHL, FHL are intact. Sensory exam to light touch throughout the extremity is intact, dorsal pedis pulses 2+. - Labs CBC & Chem 7: 05/11/23 06:47 05/10/23 08:40 Labs: Abnormal Lab Results - Last 24 Hours (Table) 05/10/23 05/10/23 05/10/23 Range/Units 13:19 16:14 21:13 POC Glucose (mg/dL) 153 H 196 H 164 H (70-110) mg/dL 05/11/23 05/11/23 Range/Units 06:22 11:04 POC Glucose (mg/dL) 125 H 112 H (70-110) mg/dL Assessment and Plan Assessment: 1. Right severe glenohumeral joint osteoarthrosis - Postop day 1 status post right total shoulder arthroplasty Plan: 1. Right severe glenohumeral joint osteoarthrosis - patient stable at bedside this morning was sitting throughout upper extremity and bulky dressing in place over right shoulder. Patient has been in moderatesevere pain overnight. We will add Vistaril 25 mg 3 times a day in addition to current pain medication Delphos 7.5 mg/325mg. Nonweightbearing right upper extremity. Plan for discharge home tomorrow 2. Appreciate medical management 3. Pain management - Delphos; add Vistaril 4. GI prophylaxis - senna 5. DVT prophylaxis - aspirin 325 mg daily 6. PT/OT - nonweightbearing right upper extremity. Maintain sling to right upper extremity at all times 7. Encourage incentive spirometer use 8. Discharge planning - plan for discharge home tomorrow. Time with Patient: Less than 30
[2023-05-11] MEDS: DILTIAZEM CD 180 MG CAP.ER.24H PO SCH (14:48)
--- NOTE | 2023-05-11 15:22 | P.CONS ---
History of Present Illness - Reason for Consult Consult date: 05/11/23 Medical management of diabetes mellitus, hypertension Requesting physician: Memo Pulido - Chief Complaint Right total shoulder osteoarthrosis, failed conservative management - History of Present Illness This is a 73-year-old female with past medical history significant for lithotripsy ,asthma, coronary artery disease, CVA/TIA, GERD, hyperlipidemia, hypertension, sleep apnea, severe right shoulder osteoarthrosis, status post right total shoulder arthroplasty. Tolerated procedure well. Reports significant pain throughout the night, was therefore unable to sleep very well. Did use her CPAP. Blood pressures soft areas therefore will only resume her antiarrhythmic Cardizem at this time. Denies chest pain, palpitations or shortness of breath. Denies lightheadedness, dizziness or focal deficits. Denies nausea vomiting diarrhea or abdominal pain. Ambulating in room, tolerating exertion well. Review of Systems ROS Statement: Those systems with pertinent positive or pertinent negative responses have been documented in the HPI. ROS Other: All systems not noted in ROS Statement are negative. Past Medical History Past Medical History: Asthma, Coronary Artery Disease (CAD), CVA/TIA, Diabetes Mellitus, GERD/Reflux, Hyperlipidemia, Hypertension, Myocardial Infarction ([place]), Musculoskeletal Disorder, Osteoarthritis (OA), Sleep Apnea/CPAP/BIPAP Additional Past Medical History / Comment(s): IGA RESPONSE TRIGGERS ASTHMA, TRIG PRATIBHA FINGER, LUMBAR DDD, TIA 2012- NO RESIDUAL, USES C-PAP Last Myocardial Infarction Date:: 09/2005 History of Any Multi-Drug Resistant Organisms: None Reported Past Surgical History: Back Surgery, Heart Catheterization, Joint Replacement, Orthopedic Surgery Additional Past Surgical History / Comment(s): LT KNEE ARTHROSCOPY. LT CTR. HX KIDNEY STONE REMOVAL 10/2012, JOSE ALFREDO LASER EYE SURG. PAIN CLINIC PROCEDURES, BREAST BX LT BREAST, jose alfredo knee replacement, lithotripsy,jose alfredo cataracts,spinal fusion. Previous open right rotator cuff repair Past Anesthesia/Blood Transfusion Reactions: No Reported Reaction Additional Past Anesthesia/Blood Transfusion Reaction / Comm: after spinal fusion 02-11-22 was unable to breath on own and was intubated for 24 hrs. no hx blood transfusion Past Psychological History: No Psychological Hx Reported Smoking Status: Never smoker Past Alcohol Use History: None Reported Past Drug Use History: None Reported - Past Family History Mother Family Medical History: Cancer Additional Family Medical History / Comment(s): FROM THYROID [place], Father Family Medical History: Cancer Additional Family Medical History / Comment(s): FROM STOMACH CA, HX ALCOHOLISM Medications and Allergies Home Medications Medication Instructions Recorded Confirmed Type Meloxicam 7.5 mg PO HS 06/10/14 05/10/23 History dilTIAZem HCL [dilTIAZem HCL 24Hr 360 mg PO QAM 04/07/16 05/10/23 History ER] Amitriptyline HCl 50 mg PO HS 01/29/19 05/10/23 History Atorvastatin [Lipitor] 20 mg PO HS 04/23/20 05/10/23 History Pantoprazole [Protonix] 40 mg PO HS 04/23/20 05/10/23 History Isosorbide Mononitrate ER [Imdur] 30 mg PO QAM 11/08/21 05/10/23 History Levothyroxine Sodium [Synthroid] 50 mcg PO QAM 11/08/21 05/10/23 History sitaGLIPtin [Januvia] 100 mg PO DAILY 11/08/21 05/10/23 History lisinopriL [Zestril] 5 mg PO QAM 10/11/22 05/10/23 History L.acidoph,Paracasei, B.lactis 1 tab PO DAILY 10/20/22 05/10/23 History [Probiotic] Calcium Carbonate/Vitamin D3 1,300 each PO DAILY 05/05/23 05/10/23 History [Calcium 600 mg-D3 20 mcg (800 unit)] Cholecalciferol [Vitamin D3 (25 25 mcg PO DAILY 05/05/23 05/10/23 History Mcg = 1000 Iu)] Ferrous Sulfate [Feosol] 325 mg PO DAILY 05/05/23 05/10/23 History Multivit with Calcium,Iron,Min 1 each PO DAILY 05/05/23 05/10/23 History [Women's Multivitamin] Allergies Allergy/AdvReac Type Severity Reaction Status Date / Time levofloxacin [From Levaquin] Allergy Rapid Verified 05/10/23 08:33 Heart Rate Physical Exam Vitals: Vital Signs Temp Pulse Resp BP Pulse Ox 05/11/23 14:00 97.8 F 92 16 118/77 91 L 05/11/23 07:15 97.9 F 92 17 108/72 92 L 05/11/23 01:17 98.0 F 84 18 105/63 93 L 05/10/23 19:38 97.5 F L 69 18 105/63 93 L 05/10/23 16:30 69 95/62 91 L 05/10/23 16:15 66 95/58 91 L 05/10/23 16:00 75 89/57 91 L 05/10/23 15:45 74 91/51 87 L 05/10/23 15:30 82 86/42 93 L 05/10/23 15:15 46 L 109/89 93 L Intake and Output 05/11/23 05/11/23 05/11/23 06:59 14:59 22:59 Other: # Voids 3 1 - Exam GENERAL: Standing up next to bed, ambulating in room, no acute distress HEENT: Pupils are round and equally reacting to light. EOMI. No scleral icterus. No conjunctival pallor. Normocephalic, atraumatic. CARDIOVASCULAR: S1 and S2 present. No murmurs, rubs, or gallops. PULMONARY: Chest is clear to auscultation, no wheezing or crackles. ABDOMEN: Soft, nondistended, left flank tenderness, normoactive bowel sounds. No palpable organomegaly. Positive bowel sounds EXTREMITIES: Right shoulder sling present , fingers warm and pink , positive radial pulse ,No cyanosis, clubbing, no pedal edema. NEUROLOGICAL: Cranial nerves II through XII grossly intact. No focal deficits. Strength and sensation grossly intact. SKIN: Warm and dry, No rashes. Results CBC & Chem 7: 05/11/23 06:47 05/10/23 08:40 Labs: Abnormal Lab Results - Last 24 Hours (Table) 05/10/23 05/10/23 05/11/23 Range/Units 16:14 21:13 06:22 WBC (3.8-10.6) k/uL Neutrophils # (1.3-7.7) k/uL POC Glucose (mg/dL) 196 H 164 H 125 H (70-110) mg/dL 05/11/23 05/11/23 Range/Units 06:47 11:04 WBC 17.9 H (3.8-10.6) k/uL Neutrophils # 15.5 H (1.3-7.7) k/uL POC Glucose (mg/dL) 112 H (70-110) mg/dL Assessment and Plan Assessment: Right severe glenohumeral joint osteoarthrosis, status post right total shoulder arthroplasty orthopedic surgery History of Right-sided pneumothorax without tension pneumothorax, status post Thoravent. Degenerative joint disease, osteoarthritis. Chronic intermittent asthma CAD, history of [place] History of CVA/TIA GERD Hyperlipidemia Essential hypertension Obstructive Sleep apnea, CPAP at home. History of IgA deficiency Hypothyroidism Morbid obesity, BMI 32.1 Hemoglobin A1c 6.2 Plan: Continue on current medication regime ,monitoring and symptomatic treatm ent. Pain management as per orthopedic surgery. Aggressive pulmonary toileting with incentive spirometer ordered. Cardizem resumed. Discharge planning in progress per primary. Hemoglobin A1c 6.2 -further follow-up outpatient in clinic.Follow-up with PCP in one week. Thank you for the consult. The impression and plan of care has been dictated as directed. : I performed a history and examination of this patient, discussed the same with the dictator. I agree with the dictator's note ,documented as a scribe. Any additional findings or plans will be noted.
[2023-05-11 16:04] LABS: Glucose,Whole Blood 111 mg/dL (70-110)
[2023-05-11] MEDS ORDERED: ATORVASTATIN 20 MG TAB PO SCH (21:00)
[2023-05-11] MEDS ORDERED: AMITRIPTYLINE HCL 50 MG TAB PO SCH (21:00)
[2023-05-11 21:14] LABS: Glucose,Whole Blood 138 mg/dL (70-110)
[2023-05-12] MEDS: HYDROcodone/APAP 5-325MG 1 EACH TAB PO PRN (01:35)
[2023-05-12 05:48] LABS: Glucose,Whole Blood 105 mg/dL (70-110)
[2023-05-12] MEDS: LEVOTHYROXINE 50 MCG TAB PO SCH (06:39)
[2023-05-12] MEDS: INSULIN ASPART (NovoLOG) 100 UNIT/ML VIAL SQ SCH ×2 (06:41→12:11)
[2023-05-12 08:13] VITALS: BP 121/70; PULSE 94; RESP 14; TEMP 98.5
[2023-05-12] MEDS: ASPIRIN 325 MG TAB PO SCH (08:49)
[2023-05-12] MEDS: DILTIAZEM CD 180 MG CAP.ER.24H PO SCH (08:49)
[2023-05-12] MEDS: PANTOPRAZOLE 40 MG/10 ML VIAL IVP SCH (08:49)
[2023-05-12] MEDS ORDERED: LACTOBACILLUS ACIDOPH & BULGAR 1 EACH PACKET PO SCH (09:00)
[2023-05-12] MEDS ORDERED: FERROUS SULFATE 325 MG TAB PO SCH (09:00)
[2023-05-12 10:51] LABS: Glucose,Whole Blood 100 mg/dL (70-110)
[2023-05-12] MEDS: HYDROmorphone 0.5 MG/0.5 ML SYRINGE IVP PRN (11:54)
--- NOTE | 2023-05-12 12:29 | P.PN ---
Subjective Progress Note Date: 05/12/23 Principal diagnosis: Right severe glenohumeral joint osteoarthrosis Patient was seen at bedside this morning lying semirecumbent position with sling to right upper extremity and bulky dressing in place on right shoulder. Patient says she was able sleep overnight. Patient says she's been keeping her right arm sling at all times. She says she has been up walking around the room. Patient says her pain is under much better control this morning that was yesterday. Patient says she has urinated several times surgery. Patient says she is hoping to go home today. Patient denies any other changes.Patient denies chest pain, fever, shortness of breath, nausea, vomiting, change in vision, loss of bowel/bladder control. Objective - Vital Signs Vital signs: Vital Signs Temp 98.5 F 05/12/23 08:00 Pulse 94 05/12/23 08:00 Resp 14 05/12/23 08:00 BP 121/70 05/12/23 08:00 Pulse Ox 94 L 05/12/23 08:00 FiO2 Intake & Output 05/11/23 05/12/23 05/12/23 18:59 06:59 18:59 Other: Voiding Method Toilet # Voids 1 1 - Exam Right shoulder: Incision is clean, dry, and intact. The bulky dressing is in good condition. Sling is present to right upper extremity. Patient does have full range of motion right wrist and right elbow in flexion/extension. Sheet Roller Operator strength 5/5 bilaterally. Radial pulses intact bilaterally, 2+. There is minimal soft tissue swelling and ecchymosis surrounding the medial and lateral aspects of the incision. Calf is soft, no tenderness with palpation. Plantar flexion, dorsiflexion, EHL, FHL are intact. Sensory exam to light touch throughout the extremity is intact, dorsal pedis pulses 2+. - Labs CBC & Chem 7: 05/11/23 06:47 05/10/23 08:40 Labs: Abnormal Lab Results - Last 24 Hours (Table) 05/11/23 05/11/23 05/11/23 Range/Units 06:47 06:47 16:03 WBC 17.9 H (3.8-10.6) k/uL Neutrophils # 15.5 H (1.3-7.7) k/uL POC Glucose (mg/dL) 111 H (70-110) mg/dL Hemoglobin A1c 6.2 H (<=6.0) % 05/11/23 Range/Units 21:12 WBC (3.8-10.6) k/uL Neutrophils # (1.3-7.7) k/uL POC Glucose (mg/dL) 138 H (70-110) mg/dL Hemoglobin A1c (<=6.0) % Assessment and Plan Assessment: 1. Right severe glenohumeral joint osteoarthrosis - Postop day 2 status post right total shoulder arthroplasty Plan: 1. Right severe glenohumeral joint osteoarthrosis - patient stable at bedside this morning. Patient has been in moderate pain overnight. Nonweightbearing right upper extremity. Discharge home today 2. Appreciate medical management 3. Pain management - [place]; Vistaril 4. GI prophylaxis - senna 5. DVT prophylaxis - aspirin 325 mg daily 6. PT/OT - nonweightbearing right upper extremity. Maintain sling to right upper extremity at all times 7. Encourage incentive spirometer use 8. Discharge planning - Discharge home today Time with Patient: Less than 30
--- NOTE | 2023-05-12 12:35 | P.DS ---
Providers Date of admission: 05/10/2023 Expected date of discharge: 05/12/23 Attending physician: Memo Pulido Consults: 05/10/23 12:18 Consult Physician Routine Consulting Provider: Richard Tinoco Consult Reason/Comments: medical management s/p right total shoulder arthroplasty Do you want consulting provider notified?: Yes Primary care physician: Richard Tinoco Hospital Course: Date of admission: 05/10/2023 Date of discharge: 05/12/2023 Admission diagnosis: Right severe glenohumeral joint osteoarthrosis Discharge diagnosis: same Attending physician: Dr. Pulido Surgical procedures: Right total shoulder arthroplasty Brief history: Patient is a 73-year-old female with a history of right severe glenohumeral joint osteoarthrosis. At this point patient has failed conservative treatment measures and has opted to proceed with a elective area right total shoulder arthroplasty. Hospital course: Details of patient's surgery can be found in operative report. Patient tolerated the procedure well and was subsequently transported to orthopedic floor. Patient's orthopeidc and medical care was provided daily. Patient had daily laboratory tests performed for evaluation of overall blood counts. Patient had daily physical therapy to include strengthening range of motion as well as education with walker ambulation. Patient was treated with aspirin for their postoperative DVT prophylaxis during their inpatient stay. Patient was noted to have a relatively uneventful postoperative course. Patient reported satisfactory pain control with oral pain medications by postoperative day 2. Patient showed satisfactory progress with physical therapy. Patient moved steadily through the program and had no difficulty meeting the goals by postoperative day 2. Given patient's otherwise satisfactory course and having met physical therapy goals, plan is to discharge patient home on postoperative day 2. Discharge condition/disposition: Patient will be discharged home in stable condition. Discharge medications: Instructions are given on resumption of patient's normal daily medications per primary care recommendation, in addition patient will be prescribed [place] 7.5 mg/325 mg; Vistaril 25 mg; senna; aspirin 325 mg daily 30 days. Orthopedic Discharge Instructions: 1. Wound care and infection precautions, keep incision dry and covered while showering, no lotions, creams, moisturizers. No soaking, pools, hot tubs. Do not scrub over incision. 2. NWB right upper extremity. 3. Ice when necessary. Do not exceed 20 minutes per hour with ice pack. 4. Utilize sling to right upper extremity. 5. Pain meds and anticoagulants per prescription. 6. Pain medication has potential to cause constipation. Increase oral fluid and fiber intake. Contact primary care provider if you have not had a bowel movement within 48 hours after discharge. 7. No anti-inflammatory medication until discussed at first post operative visit, this including Motrin, Aleve, Mobic, Diclofenac. 8. Follow up in office at 2 weeks postop with Elder Evangelista PA-C / Justin Raymundo PA-C 9. Follow up with your primary care doctor 7-10 days after discharge. 10. Contact [facility] with any questions, . keep incision clean, dry, intact. do not submerge/soak incision in water Assessment: Right severe glenohumeral joint osteoarthrosis Procedures: Right total shoulder arthroplasty Patient Condition at Discharge: Good Plan - Discharge Summary Discharge Rx Participant: No New Discharge Prescriptions: New HYDROcodone/APAP 7.5-325MG [[place] 7.5-325] 1 tab PO Q6HR PRN #28 tab PRN Reason: Pain Sennosides/Docusate Sodium [Senna Plus 8.6-50 mg Softgel] 1 each PO DAILY #20 capsule Aspirin 325 mg PO DAILY #28 tab hydrOXYzine pamoate [Vistaril] 25 mg PO Q8H #21 capsule No Action Meloxicam 7.5 mg PO HS dilTIAZem HCL [dilTIAZem HCL 24Hr ER] 360 mg PO QAM Amitriptyline HCl 50 mg PO HS Atorvastatin [Lipitor] 20 mg PO HS Pantoprazole [Protonix] 40 mg PO HS Isosorbide Mononitrate ER [Imdur] 30 mg PO QAM lisinopriL [Zestril] 5 mg PO QAM L.acidoph,Paracasei, B.lactis [Probiotic] 1 tab PO DAILY Multivit with Calcium,Iron,Min [Women's Multivitamin] 1 each PO DAILY Ferrous Sulfate [Feosol] 325 mg PO DAILY Calcium Carbonate/Vitamin D3 [Calcium 600 mg-D3 20 mcg (800 unit)] 1,300 each PO DAILY sitaGLIPtin [Januvia] 100 mg PO DAILY Levothyroxine Sodium [Synthroid] 50 mcg PO QAM Cholecalciferol [Vitamin D3 (25 Mcg = 1000 Iu)] 25 mcg PO DAILY Discharge Medication List Meloxicam 7.5 mg PO HS 06/10/14 [History] dilTIAZem HCL [dilTIAZem HCL 24Hr ER] 360 mg PO QAM 04/07/16 [History] Amitriptyline HCl 50 mg PO HS 01/29/19 [History] Atorvastatin [Lipitor] 20 mg PO HS 04/23/20 [History] Pantoprazole [Protonix] 40 mg PO HS 04/23/20 [History] Isosorbide Mononitrate ER [Imdur] 30 mg PO QAM 11/08/21 [History] Levothyroxine Sodium [Synthroid] 50 mcg PO QAM 11/08/21 [History] sitaGLIPtin [Januvia] 100 mg PO DAILY 11/08/21 [History] lisinopriL [Zestril] 5 mg PO QAM 10/11/22 [History] L.acidoph,Paracasei, B.lactis [Probiotic] 1 tab PO DAILY 10/20/22 [History] Calcium Carbonate/Vitamin D3 [Calcium 600 mg-D3 20 mcg (800 unit)] 1,300 each PO DAILY 05/05/23 [History] Cholecalciferol [Vitamin D3 (25 Mcg = 1000 Iu)] 25 mcg PO DAILY 05/05/23 [History] Ferrous Sulfate [Feosol] 325 mg PO DAILY 05/05/23 [History] Multivit with Calcium,Iron,Min [Women's Multivitamin] 1 each PO DAILY 05/05/23 [History] Aspirin 325 mg PO DAILY #28 tab 05/12/23 [Rx] HYDROcodone/APAP 7.5-325MG [[place] 7.5-325] 1 tab PO Q6HR PRN #28 tab 05/12/23 [Rx] Sennosides/Docusate Sodium [Senna Plus 8.6-50 mg Softgel] 1 each PO DAILY #20 capsule 05/12/23 [Rx] hydrOXYzine pamoate [Vistaril] 25 mg PO Q8H #21 capsule 05/12/23 [Rx] Follow up Appointment(s)/Referral(s): Justin Raymundo PAC [PHYSICIAN EXPERIMENTAL AIRCRAFT MECHANIC] - 05/26/23 9:20 am Richard Tinoco MD [Primary Care Provider] - 1 Week Patient Instructions/Handouts: Shoulder Arthroplasty (DC) Activity/Diet/Wound Care/Special Instructions: Maintain aggressive pulmonary toileting with incentive spirometer, every hour 10,while awake Orthopedic Discharge Instructions: 1. Wound care and infection precautions, keep incision dry and covered while showering, no lotions, creams, moisturizers. No soaking, pools, hot tubs. Do not scrub over incision. 2. NWB right upper extremity. 3. Ice when necessary. Do not exceed 20 minutes per hour with ice pack. 4. Utilize sling to right upper extremity. 5. Pain meds and anticoagulants per prescription. 6. Pain medication has potential to cause constipation. Increase oral fluid and fiber intake. Contact primary care provider if you have not had a bowel movement within 48 hours after discharge. 7. No anti-inflammatory medication until discussed at first post operative visit, this including Motrin, Aleve, Mobic, Diclofenac. 8. Follow up in office at 2 weeks postop with Elder Evangelista PA-C / Justin Raymundo PA-C 9. Follow up with your primary care doctor 7-10 days after discharge. 10. Contact [facility] with any questions, . keep incision clean, dry, intact. do not submerge/soak incision in water Discharge Disposition: HOME SELF-CARE
== END 2023-05-12 15:37 | disposition home or self-care (01) ==
LOC: OR 07:49 → 4SSUR 12:40 → OR 05-12 15:37
PROVIDERS: ATTEND Orthopaedic Surgery
DX: M19.011 Primary osteoarthritis, right shoulder (principal); M25.711 Osteophyte, right shoulder; G89.18 Other acute postprocedural pain; J45.909 Unspecified asthma, uncomplicated; I25.10 Atherosclerotic heart disease of native coronary artery without angina pectoris; E11.9 Type 2 diabetes mellitus without complications; K21.9 Gastro-esophageal reflux disease without esophagitis; E78.5 Hyperlipidemia, unspecified; I10 Essential (primary) hypertension; I25.2 Old myocardial infarction; G47.33 Obstructive sleep apnea (adult) (pediatric); Z86.73 Personal history of transient ischemic attack (TIA), and cerebral infarction without residual deficits; Z96.653 Presence of artificial knee joint, bilateral; Z87.442 Personal history of urinary calculi; Z98.1 Arthrodesis status; Z98.890 Other specified postprocedural states; Z79.84 Long term (current) use of oral hypoglycemic drugs; Z79.899 Other long term (current) drug therapy; Z88.1 Allergy status to other antibiotic agents
CPT/HCPCS: 23472; 64415; 80051; 85025 ×2; 83036; 73020; C1713; C1776; J2250; J1100; J0690 ×2; J2405; J3010; C9113 ×3; J1170 ×2

== ENCOUNTER 2023-07-15 20:36 | Emergency (ER) | payer MEDICARE, OTHER ==
[2023-07-15 20:46] VITALS: RESP 18; TEMP 98.7
--- NOTE | 2023-07-15 22:34 | ED ---
Back Pain HPI - General Source: patient Limitations: no limitations <Chantale Edwards - Last Filed: 07/15/23 22:32> <Bishop Escalante - Last Filed: 07/16/23 01:49> - General Chief Complaint: Back Pain/Injury Stated Complaint: Infection on back Time Seen by Provider: 07/15/23 22:33 - History of Present Illness Initial Comments: 73-year-old female presenting with chief complaint of painful bump to the lower back. She had a spinal fusion in January 2022. She states that this bump is warm and erythematous. (Chantale Edwards) This is a 73-year-old female with a past medical history including diabetes and hypertension presents emergency department for swelling and tenderness to the posterior back. The patient stated that she has had an area of swelling to the midline surgical scar of her back over the last 6 months but stated that over the last several days she noted that the area was painful and did have drainage noted yesterday. Because of the drainage, she tried to go to see her neurosurgeon but stated that she did not have an appointment until next Tuesday. The patient wanted to be evaluated just to make sure he was okay. The patient denied any fevers, chills as well as any nausea and vomiting. The patient also denied any numbness or tingling as well as any motor deficits. Patient was otherwise resting in bed comfortably without any acute distress. (Bishop Escalante) - Related Data Home Medications Medication Instructions Recorded Confirmed Meloxicam 7.5 mg PO HS 06/10/14 05/10/23 dilTIAZem HCL [dilTIAZem HCL 24Hr 360 mg PO QAM 04/07/16 05/10/23 ER] Amitriptyline HCl 50 mg PO HS 01/29/19 05/10/23 Atorvastatin [Lipitor] 20 mg PO HS 04/23/20 05/10/23 Pantoprazole [Protonix] 40 mg PO HS 04/23/20 05/10/23 Isosorbide Mononitrate ER [Imdur] 30 mg PO QAM 11/08/21 05/10/23 Levothyroxine Sodium [Synthroid] 50 mcg PO QAM 11/08/21 05/10/23 sitaGLIPtin [Januvia] 100 mg PO DAILY 11/08/21 05/10/23 lisinopriL [Zestril] 5 mg PO QAM 10/11/22 05/10/23 L.acidoph,Paracasei, B.lactis 1 tab PO DAILY 10/20/22 05/10/23 [Probiotic] Calcium Carbonate/Vitamin D3 1,300 each PO DAILY 05/05/23 05/10/23 [Calcium 600 mg-D3 20 mcg (800 unit)] Cholecalciferol [Vitamin D3 (25 25 mcg PO DAILY 05/05/23 05/10/23 Mcg = 1000 Iu)] Ferrous Sulfate [Feosol] 325 mg PO DAILY 05/05/23 05/10/23 Multivit with Calcium,Iron,Min 1 each PO DAILY 05/05/23 05/10/23 [Women's Multivitamin] Previous Rx's Medication Instructions Recorded Aspirin 325 mg PO DAILY #28 tab 05/12/23 HYDROcodone/APAP 7.5-325MG [[place] 1 tab PO Q6HR PRN #28 tab 05/12/23 7.5-325] Sennosides/Docusate Sodium [Senna 1 each PO DAILY #20 capsule 05/12/23 Plus 8.6-50 mg Softgel] hydrOXYzine pamoate [Vistaril] 25 mg PO Q8H #21 capsule 05/12/23 Cephalexin [Keflex] 500 mg PO Q6HR 1 Days #20 cap 07/15/23 Allergies Allergy/AdvReac Type Severity Reaction Status Date / Time levofloxacin [From Levaquin] Allergy Rapid Verified 05/10/23 08:33 Heart Rate Review of Systems ROS Other: All systems not noted in ROS Statement are negative. <Chantale Edwards - Last Filed: 07/15/23 22:32> ROS Other: All systems not noted in ROS Statement are negative. <Bishop Escalante - Last Filed: 07/16/23 01:49> ROS Statement: Those systems with pertinent positive or pertinent negative responses have been documented in the HPI. Past Medical History Past Medical History: Asthma, Coronary Artery Disease (CAD), CVA/TIA, Eye Disorder, GERD/Reflux, Hyperlipidemia, Hypertension, Myocardial Infarction (MS), Musculoskeletal Disorder, Sleep Apnea/CPAP/BIPAP Additional Past Medical History / Comment(s): GLAUCOMA JOSE ALFREDO. EYES- GLASSES DAILY USE, IGA RESPONSE TRIGGERS ASTHMA, TRIGGER FINGER, LUMBAR DDD, TIA 2012- NO RESIDUAL, USES C-PAP Last Myocardial Infarction Date:: 09/2005 History of Any Multi-Drug Resistant Organisms: None Reported Past Surgical History: Joint Replacement, Orthopedic Surgery Additional Past Surgical History / Comment(s): LT KNEE ARTHROSCOPY. LT CTR. HX KIDNEY STONE REMOVAL 10/2012, JOSE ALFREDO LASER EYE SURG. PAIN CLINIC PROCEDURES, BREAST BX LT BREAST, right knee replacement, lithotripsy Past Anesthesia/Blood Transfusion Reactions: No Reported Reaction Past Psychological History: No Psychological Hx Reported Smoking Status: Never smoker Past Alcohol Use History: None Reported Past Drug Use History: None Reported - Past Family History Mother Family Medical History: Cancer Additional Family Medical History / Comment(s): FROM THYROID CA, Father Family Medical History: Cancer Additional Family Medical History / Comment(s): FROM STOMACH CA, HX ALCOHOLISM <Chantale Edwards - Last Filed: 07/15/23 22:32> General Exam Limitations: no limitations <Chantale Edwards - Last Filed: 07/15/23 22:32> Limitations: no limitations General appearance: alert, in no apparent distress Head exam: Present: atraumatic, normocephalic, normal inspection Eye exam: Present: normal appearance, PERRL Pupils: Present: normal accommodation ENT exam: Present: normal exam, normal oropharynx, mucous membranes moist Neck exam: Present: normal inspection, full ROM Respiratory exam: Present: normal lung sounds bilaterally. Absent: respiratory distress Cardiovascular Exam: Present: regular rate, normal rhythm, normal heart sounds GI/Abdominal exam: Present: soft, normal bowel sounds Extremities exam: Present: normal inspection, full ROM Back exam: Present: normal inspection, full ROM, tenderness (Swelling noted to the midline lumbar spine over the healed incision with erythema noted. There was no fluctuance noted.) Neurological exam: Present: alert, oriented X3, CN II-XII intact Psychiatric exam: Present: normal affect, normal mood Skin exam: Present: warm, dry <Bishop Escalante - Last Filed: 07/16/23 01:49> - General Exam Comments Initial Comments: Visual Physical Exam Vital signs reviewed General: Well-appearing, nontoxic, no acute distress. Head: Normocephalic, atraumatic Eyes: PERRLA, EOMI ENT: Airway patent Chest: Nonlabored breathing Skin: No visual rash, normal skin tone Neuro: Alert and oriented 3 Musculoskeletal: No gross abnormalities (Chantale Edwards) Course Vital Signs 07/15/23 07/16/23 20:42 00:16 Temperature 98.7 F Pulse Rate 107 H 89 Respiratory 18 18 Rate Blood Pressure 151/75 115/60 O2 Sat by Pulse 98 95 Oximetry Medical Decision Making <Chantale Edwards - Last Filed: 07/15/23 22:32> - Lab Data Result diagrams: 07/15/23 22:40 07/15/23 22:40 <Bishop Escalante - Last Filed: 07/16/23 01:49> - Medical Decision Making I performed the quick note portion of this exam. Electronically signed by Chantale Edwards PA-C (Chantale Edwards) Was pt. sent in by a medical professional or institution (BE [facility], LINUX SYSTEM ENGINEER, urgent care, hospital, or prison...) When possible be specific @ -No Did you speak to anyone other than the patient for history (EMS, parent, family, police, friend...)? What history was obtained from this source @ -No Did you review nursing and triage notes (agree or disagree)? Why? @ -I reviewed and agree with nursing and triage notes Were old charts reviewed (outside hosp., previous admission, EMS record, old EKG, old radiological studies, urgent care reports/EKG's, prison records)? Report findings @ -No old charts were reviewed Differential Diagnosis (chest pain, altered mental status, abdominal pain women, abdominal pain men, vaginal bleeding, weakness, fever, dyspnea, syncope, headache, dizziness, GI bleed, back pain, seizure, CVA, palpatations, mental health)? @ -Cellulitis, abscess, surgical wound dehiscence EKG interpreted by me (3pts min.). @ -None X-rays interpreted by me (1pt min.). @ -None done CT interpreted by me (1pt min.). @ -None done U/S interpreted by me (1pt. min.). @ -A bedside ultrasound was performed by myself and interpreted by myself and showed cobblestoning of the area consistent with a cellulitis and did not show any pocket of fluid. What testing was considered but not performed or refused? (CT, X-rays, U/S, labs)? Why? @ -None What meds were considered but not given or refused? Why? @ -None Did you discuss the management of the patient with other professionals (professionals i.e. , PA, LINUX SYSTEM ENGINEER, lab, RT, psych nurse, social group worker, sales clerk supervisor, teacher, privacy officer, case packer)? Give summary @ -No Was smoking cessation discussed for >3mins.? @ -No Was critical care preformed (if so, how long)? @ -No Were there social determinants of health that impacted care today? How? (Homelessness, low income, unemployed, alcoholism, drug addiction, transportation, low edu. Level, literacy, decrease access to med. care, group home, rehab)? @ -No Was there de-escalation of care discussed even if they declined (Discuss DNR or withdrawal of care, Hospice)? DNR status @ -No What co-morbidities impacted this encounter? (DM, HTN, Smoking, COPD, CAD, Cancer, CVA, ARF, Chemo, Hep., AIDS, mental health diagnosis, sleep apnea, morbid obesity)? @ -Diabetes, hypertension Was patient admitted / discharged? Hospital course, mention meds given and route, prescriptions, significant lab abnormalities, going to OR and other pertinent info. @ -The patient was seen and evaluated in the emergency department. Physical exam, the patient was resting in bed without any acute distress. Vital signs admission were stable. Due to the nature the patient's complaints, laboratory workup was obtained in triage. All laboratory workup was within normal limits. A bedside ultrasound was performed by myself and showed findings consistent with cellulitis and did not show any pocket of fluid. There was no abscess noted. The patient denied any other acute signs or symptoms and was stable for discharge home. The patient will be treated for cellulitis and was given a dose of Keflex in the emergency department. The patient was also prescribed Keflex to be taken at home and told to follow-up with her neurosurgeon as previously scheduled. The patient was agreeable to this and all her questions were answered. The patient was discharged home in stable condition. Undiagnosed new problem with uncertain prognosis? @ -No Drug Therapy requiring intensive monitoring for toxicity (Heparin, Nitro, Insulin, Cardizem)? @ -No Were any procedures done? @ -No Diagnosis/symptom? @ -Cellulitis Acute, or Chronic, or Acute on Chronic? @ -Acute on chronic Uncomplicated (without systemic symptoms) or Complicated (systemic symptoms)? @ -Uncomplicated Side effects of treatment? @ -No Exacerbation, Progression, or Severe Exacerbation? @ -No Poses a threat to life or bodily function? How? (Chest pain, [place], MS, pneumonia, PE, COPD, DKA, ARF, appy, cholecystitis, CVA, Diverticulitis, Homicidal, Suicidal, threat to staff... and all critical care pts) @ -No (Bishop Escalante) - Lab Data Lab Results 07/15/23 07/15/23 Range/Units 22:40 22:40 WBC 11.7 H (3.8-10.6) k/uL RBC 4.37 (3.80-5.40) m/uL Hgb 13.1 (11.4-16.0) gm/dL Hct 39.7 (34.0-46.0) % MCV 90.8 (80.0-100.0) fL MCH 30.0 (25.0-35.0) pg MCHC 33.1 (31.0-37.0) g/dL RDW 13.0 (11.5-15.5) % Plt Count 197 (150-450) k/uL MPV 9.1 Neutrophils % 68 % Lymphocytes % 24 % Monocytes % 5 % Eosinophils % 2 % Basophils % 0 % Neutrophils # 8.0 H (1.3-7.7) k/uL Lymphocytes # 2.8 (1.0-4.8) k/uL Monocytes # 0.6 (0-1.0) k/uL Eosinophils # 0.2 (0-0.7) k/uL Basophils # 0.1 (0-0.2) k/uL ESR 28 H (0-20) mm/hr Sodium 140 (137-145) mmol/L Potassium 4.6 (3.5-5.1) mmol/L Chloride 105 (98-107) mmol/L Carbon Dioxide 26 (22-30) mmol/L Anion Gap 9 mmol/L BUN 16 (7-17) mg/dL Creatinine 0.96 (0.52-1.04) mg/dL Est GFR (CKD-EPI)AfAm 68 (>60 ml/min/1.73 sqM) Est GFR (CKD-EPI)NonAf 59 (>60 ml/min/1.73 sqM) Glucose 110 H (74-99) mg/dL Calcium 9.9 (8.4-10.2) mg/dL Total Bilirubin 0.5 (0.2-1.3) mg/dL AST 28 (14-36) U/L ALT 24 (4-34) U/L Alkaline Phosphatase 111 (38-126) U/L C-Reactive Protein 1.4 H (<1.0) mg/dL Total Protein 7.7 (6.3-8.2) g/dL Albumin 4.4 (3.5-5.0) g/dL Disposition <Chantale Edwards - Last Filed: 07/15/23 22:32> Is patient prescribed a controlled substance at d/c from ED?: No Time of Disposition: 23:30 <Bishop Escalante - Last Filed: 07/16/23 01:49> Clinical Impression: Cellulitis Disposition: HOME SELF-CARE Condition: Stable Instructions (If sedation given, give patient instructions): Cellulitis (ED) Prescriptions: Cephalexin [Keflex] 500 mg PO Q6HR 1 Days #20 cap Referrals: Richard Tinoco MD [Primary Care Provider] - 1-2 days
[2023-07-15 22:52] LABS: Basophils # (A) 0.1 k/uL (0-0.2); Basophils % (A) 0 %; Eosinophils # (A) 0.2 k/uL (0-0.7); Eosinophils % (A) 2 %; HCT 39.7 % (34.0-46.0); HGB 13.1 gm/dL (11.4-16.0); Lymphocytes # (A) 2.8 k/uL (1.0-4.8); Lymphocytes % (A) 24 %; MCHC 33.1 g/dL (31.0-37.0); MCV 90.8 fL (80.0-100.0); Mean Platelet Volume 9.1; Monocytes # (A) 0.6 k/uL (0-1.0); Monocytes % (A) 5 %; Neutrophils % (A) 68 %; Platelet Count 197 k/uL (150-450); RBC 4.37 m/uL (3.80-5.40); WBC 11.7 k/uL (3.8-10.6)
[2023-07-15 23:07] LABS: ALT 24 U/L (4-34); AST 28 U/L (14-36); African American GFR (CKD) 68 (>60 ml/min/1.73 sqM); Albumin 4.4 g/dL (3.5-5.0); Alkaline Phosphatase 111 U/L (38-126); Anion Gap 9 mmol/L; Blood Urea Nitrogen 16 mg/dL (7-17); C Reactive Protein 1.4 mg/dL (<1.0); Calcium 9.9 mg/dL (8.4-10.2); Carbon Dioxide 26 mmol/L (22-30); Chloride 105 mmol/L (98-107); Glucose 110 mg/dL (74-99); Non-African American GFR(CKD) 59 (>60 ml/min/1.73 sqM); Potassium 4.6 mmol/L (3.5-5.1); Sodium 140 mmol/L (137-145); Total Bilirubin 0.5 mg/dL (0.2-1.3); Total Protein 7.7 g/dL (6.3-8.2)
[2023-07-15 23:41] LABS: Erythrocyte Sedimentation Rate 28 mm/hr (0-20)
[2023-07-15] MEDS ORDERED: CEPHALEXIN 500 MG CAP PO STA (23:44)
[2023-07-16 00:17] VITALS: BP 115/60; PULSE 89
== END 2023-07-16 00:17 | disposition home or self-care (01) ==
LOC: EC 20:36
DX: L03.90 Cellulitis, unspecified (principal); J45.909 Unspecified asthma, uncomplicated; I10 Essential (primary) hypertension; I25.2 Old myocardial infarction; G47.30 Sleep apnea, unspecified; K21.9 Gastro-esophageal reflux disease without esophagitis; E78.5 Hyperlipidemia, unspecified; Z88.1 Allergy status to other antibiotic agents; Z79.899 Other long term (current) drug therapy
CPT/HCPCS: 36415; 80053; 85025; 85652; 86140; 99283

== ENCOUNTER → 2023-08-18 | Outpatient (CLI) | payer MEDICARE, OTHER ==
[2023-08-18 17:50] LABS: ALT 19 U/L (8-44); AST 20 U/L (13-35); Chol/HDL Ratio 2.65 Ratio; LDL Cholesterol,Calculated 49.5 mg/dL (0.0-131.0)
== END | disposition home or self-care (01) ==
LOC: LABWHC1 07:10
PROVIDERS: ATTEND Internal Medicine Cardiovascular Disease
DX: E78.2 Mixed hyperlipidemia (principal)
CPT/HCPCS: 36415; 80061; 84450; 84460

== ENCOUNTER 2023-10-18 12:39 | Observation (INO) | payer MEDICARE, OTHER ==
--- NOTE | 2023-10-18 13:04 | ED ---
Chest Pain HPI - General Source: patient, RN notes reviewed Mode of arrival: ambulatory Limitations: no limitations <Landon Donato - Last Filed: 10/18/23 13:03> - General Source: patient, RN notes reviewed Limitations: no limitations <Servando Wallace - Last Filed: 10/18/23 19:37> - General Chief Complaint: Chest Pain Stated Complaint: chest pain Time Seen by Provider: 10/18/23 13:03 - History of Present Illness Initial Comments: 73-year-old female presents emergency Department chief complaint of chest pain. Patient states left-sided radiates to her back. She states she has a history of hypertension hyperlipidemia and diabetes she states it's sharp, pressure pain in the left. Patient has no prior cardiac stents. (Landon Donato) Patient is a pleasant 73-year-old female presenting to the emergency department with concerns for chest discomfort. Onset of symptoms was around 8:30. Symptoms are slowly starting to improve and are near resolved at this time. Discomfort is currently 1/10. Discomfort feels like pressure without associated dyspnea. No nausea. No diaphoresis. Patient does have history of previous small heart attack however symptoms did not feel similar that time. (Servando Wallace) - Related Data Home Medications Medication Instructions Recorded Confirmed Meloxicam 7.5 mg PO HS 06/10/14 05/10/23 dilTIAZem HCL [dilTIAZem HCL 24Hr 360 mg PO QAM 04/07/16 05/10/23 ER] Amitriptyline HCl 50 mg PO HS 01/29/19 05/10/23 Atorvastatin [Lipitor] 20 mg PO HS 04/23/20 05/10/23 Pantoprazole [Protonix] 40 mg PO HS 04/23/20 05/10/23 Isosorbide Mononitrate ER [Imdur] 30 mg PO QAM 11/08/21 05/10/23 Levothyroxine Sodium [Synthroid] 50 mcg PO QAM 11/08/21 05/10/23 sitaGLIPtin [Januvia] 100 mg PO DAILY 11/08/21 05/10/23 lisinopriL [Zestril] 5 mg PO QAM 10/11/22 05/10/23 L.acidoph,Paracasei, B.lactis 1 tab PO DAILY 10/20/22 05/10/23 [Probiotic] Calcium Carbonate/Vitamin D3 1,300 each PO DAILY 05/05/23 05/10/23 [Calcium 600 mg-D3 20 mcg (800 unit)] Cholecalciferol [Vitamin D3 (25 25 mcg PO DAILY 05/05/23 05/10/23 Mcg = 1000 Iu)] Ferrous Sulfate [Feosol] 325 mg PO DAILY 05/05/23 05/10/23 Multivit with Calcium,Iron,Min 1 each PO DAILY 05/05/23 05/10/23 [Women's Multivitamin] Previous Rx's Medication Instructions Recorded Aspirin 325 mg PO DAILY #28 tab 05/12/23 HYDROcodone/APAP 7.5-325MG [Healy 1 tab PO Q6HR PRN #28 tab 05/12/23 7.5-325] Sennosides/Docusate Sodium [Senna 1 each PO DAILY #20 capsule 05/12/23 Plus 8.6-50 mg Softgel] hydrOXYzine pamoate [Vistaril] 25 mg PO Q8H #21 capsule 05/12/23 Cephalexin [Keflex] 500 mg PO Q6HR 1 Days #20 cap 07/15/23 Allergies Allergy/AdvReac Type Severity Reaction Status Date / Time levofloxacin [From Levaquin] Allergy Rapid Verified 10/18/23 12:42 Heart Rate Review of Systems ROS Other: All systems not noted in ROS Statement are negative. <Landon Donato - Last Filed: 10/18/23 13:03> ROS Other: All systems not noted in ROS Statement are negative. Constitutional: Denies: fever Eyes: Denies: eye pain ENT: Denies: ear pain Respiratory: Reports: as per HPI Cardiovascular: Reports: as per HPI, chest pain Endocrine: Denies: fatigue Gastrointestinal: Denies: abdominal pain Genitourinary: Denies: urgency Musculoskeletal: Denies: back pain <Servando Wallace - Last Filed: 10/18/23 19:37> ROS Statement: Those systems with pertinent positive or pertinent negative responses have been documented in the HPI. EKG Findings - EKG Results: EKG: interpreted by ERMD, sinus rhythm, normal axis, normal QRS, normal ST/T <Servando Wallace - Last Filed: 10/18/23 19:37> Past Medical History Past Medical History: Asthma, Coronary Artery Disease (CAD), CVA/TIA, Eye Disorder, GERD/Reflux, Hyperlipidemia, Hypertension, Myocardial Infarction ([place]), Musculoskeletal Disorder, Sleep Apnea/CPAP/BIPAP Additional Past Medical History / Comment(s): GLAUCOMA JOSE ALFREDO. EYES- GLASSES DAILY USE, IGA RESPONSE TRIGGERS ASTHMA, TRIGGER FINGER, LUMBAR DDD, TIA 2012- NO RESI DUAL, USES C-PAP Last Myocardial Infarction Date:: 09/2005 History of Any Multi-Drug Resistant Organisms: None Reported Past Surgical History: Joint Replacement, Orthopedic Surgery Additional Past Surgical History / Comment(s): LT KNEE ARTHROSCOPY. LT CTR. HX KIDNEY STONE REMOVAL 10/2012, JOSE ALFREDO LASER EYE SURG. PAIN CLINIC PROCEDURES, BREAST BX LT BREAST, right knee replacement, lithotripsy Past Anesthesia/Blood Transfusion Reactions: No Reported Reaction Past Psychological History: No Psychological Hx Reported Smoking Status: Never smoker Past Alcohol Use History: None Reported Past Drug Use History: None Reported - Past Family History Mother Family Medical History: Cancer Additional Family Medical History / Comment(s): FROM THYROID [place], Father Family Medical History: Cancer Additional Family Medical History / Comment(s): FROM STOMACH CA, HX ALCOHOLISM <Landon Donato - Last Filed: 10/18/23 13:03> General Exam Limitations: no limitations <Landon Donato - Last Filed: 10/18/23 13:03> Limitations: no limitations General appearance: alert, in no apparent distress Head exam: Present: normocephalic Eye exam: Present: normal appearance Neck exam: Present: normal inspection Respiratory exam: Present: normal lung sounds bilaterally. Absent: chest wall tenderness Cardiovascular Exam: Present: regular rate, normal rhythm Expanded Peripheral pulses: 2+: Radial (R), Radial (L), Dorsalis Pedis (R), Dorsalis Pedis (L) GI/Abdominal exam: Present: soft. Absent: tenderness Extremities exam: Present: normal inspection. Absent: pedal edema, calf tenderness Neurological exam: Present: alert Psychiatric exam: Present: normal affect, normal mood Skin exam: Present: normal color <Servando Wallace - Last Filed: 10/18/23 19:37> - General Exam Comments Initial Comments: Visual Physical Exam Vital signs reviewed General: Well-appearing, nontoxic, no acute distress. Head: Normocephalic, atraumatic Eyes: PERRLA, EOMI ENT: Airway patent Chest: Nonlabored breathing Skin: No visual rash, normal skin tone Neuro: Alert and oriented 3 Musculoskeletal: No gross abnormalities (Landon Donato) Course Vital Signs 10/18/23 10/18/23 10/18/23 12:43 17:17 18:21 Temperature 97.4 F L Pulse Rate 102 H 79 Pulse Rate [ 88 Pecan Huller ] Respiratory 16 18 Rate Blood Pressure 167/74 124/74 O2 Sat by Pulse 97 95 Oximetry Chest Pain MDM <Landon Donato - Last Filed: 10/18/23 13:03> <Servando Wallace - Last Filed: 10/18/23 19:37> - MDM I performed a quick note portion of this chart signed Landon Donato _SHANNON (Landon Donato) Was pt. sent in by a medical professional or institution ([facility], PAINT POURER, urgent care, hospital, or halfway...) When possible be specific @ -No Did you speak to anyone other than the patient for history (EMS, parent, family, police, friend...)? What history was obtained from this source @ -Family is present and helps confirm history Did you review nursing and triage notes (agree or disagree)? Why? @ -I reviewed and agree with nursing and triage notes Were old charts reviewed (outside hosp., previous admission, EMS record, old EKG, old radiological studies, urgent care reports/EKG's, halfway records)? Report findings @ -No old charts were reviewed Differential Diagnosis (chest pain, altered mental status, abdominal pain women, abdominal pain men, vaginal bleeding, weakness, fever, dyspnea, syncope, headache, dizziness, GI bleed, back pain, seizure, CVA, palpatations, mental health, musculoskeletal)? @ -Differential Chest Pain: Stable Angina, Unstable Angina, STEMI, NSTEMI Aortic Dissection, Pneumothorax, Musculoskeletal, Esophageal Spasm GERD, Cholecystitis, Pancreatitis, Zoster, this is not meant to be an all-inclusive list. EKG interpreted by me (3pts min.). @ -As above X-rays interpreted by me (1pt min.). @ -Chest x-ray shows no acute process. CT interpreted by me (1pt min.). @ -None done U/S interpreted by me (1pt. min.). @ -None done What testing was considered but not performed or refused? (CT, X-rays, U/S, labs)? Why? @ -CT chest ordered secondary to elevation of d-dimer What meds were considered but not given or refused? Why? @ -None Did you discuss the management of the patient with other professionals (professionals i.e. , PA, PAINT POURER, lab, RT, psych nurse, social science research assistant, curtain fitter, teacher, dental officer, community case manager)? Give summary @ -Case was discussed with Dr. Tinoco who will admit his patient. Was smoking cessation discussed for >3mins.? @ -No Was critical care preformed (if so, how long)? @ -No Were there social determinants of health that impacted care today? How? (Homelessness, low income, unemployed, alcoholism, drug addiction, transportation, low edu. Level, literacy, decrease access to med. care, [place] [facility], rehab)? @ -No Was there de-escalation of care discussed even if they declined (Discuss DNR or withdrawal of care, Hospice)? DNR status @ -No What co-morbidities impacted this encounter? (DM, HTN, Smoking, COPD, CAD, Cancer, CVA, ARF, Chemo, Hep., AIDS, mental health diagnosis, sleep apnea, morbid obesity)? @ -None Was patient admitted / discharged? Hospital course, mention meds given and r oute, prescriptions, significant lab abnormalities, going to OR and other pertinent info. @ -Patient revaluate. Patient and family updated on results and plan. Patient will be admitted and computed tomography scan will be ordered. Cardiac placed on consult. Should and orders written. Undiagnosed new problem with uncertain prognosis? @ -No Drug Therapy requiring intensive monitoring for toxicity (Heparin, Nitro, Insulin, Cardizem)? @ -No Were any procedures done? @ -No Diagnosis/symptom? @ -Chest pain Acute, or Chronic, or Acute on Chronic? @ -Acute Uncomplicated (without systemic symptoms) or Complicated (systemic symptoms)? @ -default Side effects of treatment? @ -No Exacerbation, Progression, or Severe Exacerbation? @ -No Poses a threat to life or bodily function? How? (Chest pain, [place], CA, pneumonia, PE, COPD, DKA, ARF, appy, cholecystitis, CVA, Diverticulitis, Homicidal, Suicidal, threat to staff... and all critical care pts) @ -No (Servando Wallace) Disposition <Dedoe,Landon M - Last Filed: 10/18/23 13:03> Is patient prescribed a controlled substance at d/c from ED?: No Time of Disposition: 19:37 <Servando Wallace - Last Filed: 10/18/23 19:37> Clinical Impression: Chest pain Disposition: ADMITTED IP TO THIS HOSP Referrals: Richard Tinoco MD [Primary Care Provider] - 1-2 days
[2023-10-18 13:27] LABS: Basophils # (A) 0.1 k/uL (0-0.2); Basophils % (A) 1 %; Eosinophils # (A) 0.2 k/uL (0-0.7); Eosinophils % (A) 3 %; HGB 13.2 gm/dL (11.4-16.0); Lymphocytes # (A) 2.9 k/uL (1.0-4.8); Lymphocytes % (A) 37 %; MCH 29.1 pg (25.0-35.0); MCHC 32.9 g/dL (31.0-37.0); MCV 88.3 fL (80.0-100.0); Mean Platelet Volume 8.4; Monocytes # (A) 0.4 k/uL (0-1.0); Monocytes % (A) 5 %; Neutrophils # (A) 4.2 k/uL (1.3-7.7); Neutrophils % (A) 54 %; Platelet Count 196 k/uL (150-450); RBC 4.53 m/uL (3.80-5.40); RDW 13.4 % (11.5-15.5); WBC 7.8 k/uL (3.8-10.6)
[2023-10-18 13:37] LABS: INR 0.9 (<1.2); Partial Thromboplastin Time 23.3 sec (22.0-30.0); Prothrombin Time 10.4 sec (10.0-12.5)
[2023-10-18 13:44] LABS: ALT 17 U/L (4-34); AST 23 U/L (14-36); African American GFR (CKD) 68 (>60 ml/min/1.73 sqM); Albumin 4.4 g/dL (3.5-5.0); Alkaline Phosphatase 103 U/L (38-126); Anion Gap 12 mmol/L; Blood Urea Nitrogen 16 mg/dL (7-17); Calcium 9.7 mg/dL (8.4-10.2); Carbon Dioxide 23 mmol/L (22-30); Chloride 106 mmol/L (98-107); Glucose 127 mg/dL (74-99); Non-African American GFR(CKD) 59 (>60 ml/min/1.73 sqM); Sodium 141 mmol/L (137-145); Total Bilirubin 0.5 mg/dL (0.2-1.3); Total Protein 7.4 g/dL (6.3-8.2)
--- NOTE | 2023-10-18 15:54 | XR ---
EXAMINATION TYPE: XR chest 2V DATE OF EXAM: 10/18/2023 COMPARISON: 02/15/2022 HISTORY: 73-year-old female with pain TECHNIQUE: PA and lateral views FINDINGS: The cardiomediastinal silhouette, aorta, and pulmonary vasculature are within normal limits. Lungs an d pleural spaces are clear. Partially visualized lumbar fusion hardware. Partially visualized resurfa cing right shoulder arthroplasty. IMPRESSION: No acute cardiopulmonary process.
[2023-10-18] MEDS ORDERED: NITROGLYCERIN SL TABS 0.4 MG TAB SUBLINGUAL PRN (19:37)
[2023-10-18] MEDS ORDERED: ASPIRIN 81 MG PO STA (19:37)
[2023-10-18] MEDS: NITROGLYCERIN OINT 1 INCH/GM PACKET TOPICAL SCH (20:03)
--- NOTE | 2023-10-18 21:41 | CT ---
EXAMINATION TYPE: CT angio chest CT DLP: 348 mGycm, Automated exposure control for dose reduction was used. DATE OF EXAM: 10/18/2023 8:30 PM COMPARISON: None. CLINICAL INDICATION:Female, 73 years old with history of cp; TECHNIQUE/CONTRAST: CTA scan of the thorax is performed with IV Contrast, patient injected with 80 mL of Isovue 370, MIP images are created and reviewed these are created on a separate workstation.. FINDINGS: Pulmonary Artery: There is no evidence for a filling defect within the pulmonary vasculature to sugge st acute pulmonary embolism. The pulmonary artery is of normal size. Lungs/Pleura: No evidence of focal consolidation, pleural effusion or pneumothorax. Airway: Large airways are patent. Heart: Heart is within normal limits for size. Vasculature: No evidence for intramural hematoma on noncontrast imaging. No evidence of intimal flap to suggest dissection. No aneurysm identified. Scattered atherosclerotic disease. Mediastinum: No gross evidence of adenopathy. Musculoskeletal: Moderate degenerative disc disease changes are present throughout the thoracolumbar spine., right shoulder arthroplasty changes. Hardware appears intact. Soft Tissues: Unremarkable. Lower neck: No significant findings. Upper Abdomen: The gallbladder surgically absent. IMPRESSION: 1. No evidence of pulmonary embolism aortic dissection or aortic aneurysm. 2. No evidence for acute thoracic process.
[2023-10-19] MEDS ORDERED: DEXTROSE 50% SYRINGE 50 ML IVP PRN ×2 (00:57)
[2023-10-19] MEDS: NITROGLYCERIN OINT 1 INCH/GM PACKET TOPICAL SCH ×2 (01:05→06:32)
[2023-10-19 06:28] LABS: Glucose,Whole Blood 106 mg/dL (70-110)
[2023-10-19] MEDS: INSULIN ASPART (NovoLOG) 100 UNIT/ML VIAL SQ SCH ×2 (06:32→12:10)
[2023-10-19 07:57] VITALS: BP 117/68; PULSE 79; TEMP 97.5
[2023-10-19 07:58] VITALS: RESP 16
[2023-10-19 08:58] LABS: Chol/HDL Ratio 2.62 Ratio
[2023-10-19] MEDS ORDERED: DILTIAZEM CD 180 MG CAP.ER.24H PO SCH (09:00)
[2023-10-19] MEDS ORDERED: ISOSORBIDE MONONITRATE ER 60 MG TAB.ER.24H PO SCH (09:00)
[2023-10-19] MEDS ORDERED: lisinopriL 5 MG TAB PO SCH (09:00)
[2023-10-19] MEDS ORDERED: ASPIRIN 325 MG TAB PO SCH (09:00)
[2023-10-19] MEDS ORDERED: ISOSORBIDE MONONITRATE ER 30 MG TAB.ER.24H PO SCH (09:00)
--- NOTE | 2023-10-19 10:26 | P.CRDCN ---
History of Present Illness History of present illness: HISTORY OF PRESENT ILLNESS: This is a 73-year-old female with a past medical history significant for hypertension, hyperlipidemia, and vasospastic angina. Patient follows in the office with Dr. Granados. We have been asked to see the patient in consultation for chest pain. Patient examined at the bedside. Patient states yesterday she began having chest pain in the morning while she was drinking coffee. She initially thought it was gas pain. She states that she drinks some burners but the discomfort did not go away. She came to the hospital for further evaluation. She states she has no chest pain or pressure at the time of examination. She denies any shortness of breath. * EKG reveals sinus mechanism with no signs of acute ischemia * Chest xray negative for acute process * Chest CTA: Negative for PE * Laboratory data: Troponin negative 2 * Most recent echocardiogram obtained in November 2022 revealed ejection fraction 55-60%, mild mitral regurgitation, mild tricuspid regurgitation, and trace aortic regurgitation * Cardiac catheterization history: 2004 revealing normal coronary arteries REVIEW OF SYSTEMS: At the time of my exam: CONSTITUTIONAL: Denies fever or chills. HEENT: Denies blurred vision, vision changes, or eye pain. Denies hemoptysis CARDIOVASCULAR: Denies chest pain. Denies orthopnea. Denies PND. Denies palpitations RESPIRATORY: Denies shortness of breath. GASTROINTESTINAL: Denies abdominal pain. Denies nausea or vomiting. HEMATOLOGIC: Denies bleeding disorders. GENITOURINARY: Denies any blood in urine. SKIN: Denies pruitis. Denies rash. PHYSICAL EXAM: VITAL SIGNS: Reviewed. GENERAL: Well-developed in no acute distress. HEENT: Head is normocephalic. Pupils are equal, round. Sclerae anicteric. Mucous membranes of the mouth are moist. Neck supple. No JVD or thyromegaly LUNGS: Respirations even and unlabored. Lungs essentially clear to auscultation bilaterally. HEART: Regular rate and rhythm. S1 and S2 heard. ABDOMEN: Soft. Nondistended. Nontender. EXTREMITIES: Normal range of motion. No clubbing or cyanosis. Peripheral pulses intact. No lower extremity edema NEUROLOGIC: Awake and alert. Oriented x 3. ASSESSMENT: Chest pain, troponin negative 2 History of vasospastic angina Hypertension Hyperlipidemia Normal coronary arteries, per cardiac catheterization, 2004 PLAN: An acute coronary event has been ruled out Resume home cardiac medications Increase Imdur to 60 mg daily Obtain 2-D echo to assess cardiac structure and function Stress testing was offered to patient today. However the patient states her lupe crocker is legally blind and she would like to be discharged home today to help care for him. She also wants to be discharged home today due to the . Patient agreeable to outpatient stress testing Patient may be discharged home today from a cardiac standpoint and follow up in the office post discharge Nurse practitioner note has been reviewed by physician. Signing provider agrees with the documented findings, assessment, and plan of care. Past Medical History Past Medical History: Asthma, Coronary Artery Disease (CAD), CVA/TIA, Eye Disorder, GERD/Reflux, Hyperlipidemia, Hypertension, Myocardial Infarction ([place]), Musculoskeletal Disorder, Sleep Apnea/CPAP/BIPAP Additional Past Medical History / Comment(s): GLAUCOMA JOSE ALFREDO. EYES- GLASSES DAILY USE, IGA RESPONSE TRIGGERS ASTHMA, TRIGGER FINGER, LUMBAR DDD, TIA 2012- NO RESIDUAL, USES C-PAP Last Myocardial Infarction Date:: 09/2005 History of Any Multi-Drug Resistant Organisms: None Reported Past Surgical History: Joint Replacement, Orthopedic Surgery Additional Past Surgical History / Comment(s): LT KNEE ARTHROSCOPY. LT CTR. HX KIDNEY STONE REMOVAL 10/2012, JOSE ALFREDO LASER EYE SURG. PAIN CLINIC PROCEDURES, BREAST BX LT BREAST, right knee replacement, lithotripsy Past Anesthesia/Blood Transfusion Reactions: No Reported Reaction Past Psychological History: No Psychological Hx Reported Smoking Status: Never smoker Past Alcohol Use History: None Reported Past Drug Use History: None Reported - Past Family History Mother Family Medical History: Cancer Additional Family Medical History / Comment(s): FROM THYROID [place], Father Family Medical History: Cancer Additional Family Medical History / Comment(s): FROM STOMACH [place], HX ALCOHOLISM Medications and Allergies Home Medications Medication Instructions Recorded Confirmed Type Meloxicam 7.5 mg PO HS 06/10/14 10/18/23 History dilTIAZem HCL [dilTIAZem HCL 24Hr 360 mg PO DAILY 04/07/16 10/18/23 History ER] Amitriptyline HCl 50 mg PO DAILY 01/29/19 10/18/23 History Atorvastatin [Lipitor] 20 mg PO HS 04/23/20 10/18/23 History Pantoprazole [Protonix] 40 mg PO DAILY 04/23/20 10/18/23 History Isosorbide Mononitrate ER [Imdur] 30 mg PO DAILY 11/08/21 10/18/23 History Levothyroxine Sodium [Synthroid] 50 mcg PO DAILY 11/08/21 10/18/23 History sitaGLIPtin [Januvia] 100 mg PO DIRECTED 11/08/21 10/18/23 History lisinopriL [Zestril] 5 mg PO DAILY 10/11/22 10/18/23 History L.acidoph,Paracasei, B.lactis 1 tab PO DAILY 10/20/22 10/18/23 History [Probiotic] Calcium Carbonate/Vitamin D3 2 tab PO DAILY 05/05/23 10/18/23 History [Calcium 600 mg-D3 20 mcg (800 unit)] Cholecalciferol [Vitamin D3 (25 25 mcg PO DAILY 05/05/23 10/18/23 History Mcg = 1000 Iu)] Ferrous Sulfate [Feosol] 325 mg PO DAILY 05/05/23 10/18/23 History Multivit with Calcium,Iron,Min 1 tab PO DAILY 05/05/23 10/18/23 History [Women's Multivitamin] Allergies Allergy/AdvReac Type Severity Reaction Status Date / Time levofloxacin [From [facility]] Allergy Rapid Verified 10/18/23 22:25 Heart Rate Physical Exam Vitals: Vital Signs Temp Pulse Pulse Pulse Resp BP BP 10/19/23 07:20 97.5 F L 79 16 117/68 10/19/23 02:00 97.9 F 78 16 98/61 10/18/23 21:46 80 10/18/23 21:18 98.1 F 80 18 119/74 10/18/23 20:32 82 18 116/55 10/18/23 18:21 79 18 124/74 10/18/23 17:17 88 10/18/23 12:43 97.4 F L 102 H 16 167/74 Pulse Ox 10/19/23 07:20 95 10/19/23 02:00 92 L 10/18/23 21:46 10/18/23 21:18 96 10/18/23 20:32 96 10/18/23 18:21 95 10/18/23 17:17 10/18/23 12:43 97 Intake and Output 10/18/23 10/19/23 10/19/23 22:59 06:59 14:59 Other: Voiding Method Toilet Toilet # Voids 0 1 Weight 73.482 kg Results 10/18/23 12:54 10/18/23 12:54 Cardiac Enzymes 10/18/23 10/18/23 10/18/23 Range/Units 12:54 12:54 20:02 AST 23 (14-36) U/L Troponin I <0.012 <0.012 (0.000-0.034) ng/mL Coagulation 10/18/23 Range/Units 12:54 PT 10.4 (10.0-12.5) sec APTT 23.3 (22.0-30.0) sec Lipids 10/19/23 Range/Units 03:45 Triglycerides 185.00 H (0.00-149.00) mg/dL Cholesterol 110.00 (0.00-200.00) mg/dL HDL Cholesterol 42.00 (40.00-60.00) mg/dL Cholesterol/HDL Ratio 2.62 Ratio CBC 10/18/23 Range/Units 12:54 WBC 7.8 (3.8-10.6) k/uL RBC 4.53 (3.80-5.40) m/uL Hgb 13.2 (11.4-16.0) gm/dL Hct 40.0 (34.0-46.0) % Plt Count 196 (150-450) k/uL Comprehensive Metabolic Panel 10/18/23 Range/Units 12:54 Sodium 141 (137-145) mmol/L Potassium 4.0 (3.5-5.1) mmol/L Chloride 106 (98-107) mmol/L Carbon Dioxide 23 (22-30) mmol/L BUN 16 (7-17) mg/dL Creatinine 0.97 (0.52-1.04) mg/dL Glucose 127 H (74-99) mg/dL Calcium 9.7 (8.4-10.2) mg/dL AST 23 (14-36) U/L ALT 17 (4-34) U/L Alkaline Phosphatase 103 (38-126) U/L Total Protein 7.4 (6.3-8.2) g/dL Albumin 4.4 (3.5-5.0) g/dL Current Medications Generic Name Dose Route Start Last Admin Trade Name Freq PRN Reason Stop Dose Admin Atorvastatin Calcium 20 mg 10/19/23 21:00 Atorvastatin 20 Mg Tab PO HS SALEEM Dextrose/Water 25 ml 10/19/23 00:57 Dextrose 50% Syringe 50 Ml IVP PER PROTOCOL PRN Hypoglycemia Protocol Dextrose/Water 50 ml 10/19/23 00:57 Dextrose 50% Syringe 50 Ml IVP PER PROTOCOL PRN Hypoglycemia Protocol Diltiazem HCl 360 mg 10/19/23 09:00 10/19/23 09:18 Diltiazem Cd 180 Mg Cap.Er.24h PO 360 mg DAILY SALEEM Administration Insulin Aspart 0 unit 10/19/23 07:30 10/19/23 06:32 Insulin Aspart (Novolog) 100 Unit/Ml Vial SQ Not Given ACHS [facility] Protocol Isosorbide Mononitrate 60 mg 10/19/23 09:00 10/19/23 09:18 Isosorbide Mononitrate Er 60 Mg Tab.Er.24h PO 60 mg DAILY SALEEM Administration Lisinopril 5 mg 10/19/23 09:00 10/19/23 09:18 Lisinopril 5 Mg Tab PO 5 mg DAILY SALEEM Administration Nitroglycerin 0.4 mg 10/18/23 19:37 Nitroglycerin Sl Tabs 0.4 Mg Tab SUBLINGUAL Q5M PRN Chest Pain Intake and Output 10/18/23 10/19/23 10/19/23 22:59 06:59 14:59 Other: Voiding Method Toilet Toilet # Voids 0 1 Weight 73.482 kg 10/18/23 12:54 10/18/23 12:54
[2023-10-19 11:48] LABS: Glucose,Whole Blood 176 mg/dL (70-110)
[2023-10-19] MEDS ORDERED: MULTIVITAMINS, THERA 1 EACH TAB PO SCH (12:30)
[2023-10-19] MEDS ORDERED: AMITRIPTYLINE HCL 50 MG TAB PO SCH (12:30)
[2023-10-19] MEDS ORDERED: NON FORMULARY DRUG (Sitagliptin 100 MG Tab) PO SCH (12:30)
[2023-10-19] MEDS ORDERED: LACTOBACILLUS ACIDOPHILUS/PECT 1 EACH CAPSULE PO SCH (12:30)
[2023-10-19] MEDS ORDERED: CALCIUM CARB-VIT D 500 MG-5 MCG TAB PO SCH (12:30)
[2023-10-19] MEDS ORDERED: CHOLECALCIFEROL 25 MCG (1000 IU) TABLET PO SCH (12:30)
[2023-10-19] MEDS ORDERED: FERROUS SULFATE 325 MG TAB PO SCH (12:30)
[2023-10-19] MEDS ORDERED: LEVOTHYROXINE 50 MCG TAB PO SCH (12:30)
[2023-10-19] MEDS ORDERED: PANTOPRAZOLE 40 MG TABLET PO SCH (12:30)
--- NOTE | 2023-10-19 12:38 | CA ---
Transthoracic Echo Report Name: Nidia Greene Age: 73 Gender: F : 1950 Exam Date: 10/19/2023 09:40 Exam Location: [facility] Ht (in): 59 Wt (lb): 162 Ordering Physician: Yasmine Perez Attending/Referring Phys: [id number], Chris Building Cleaner Alessia Brito RDCS Procedure CPT: Indications: LV function, CP Cardiac Hx: Technical Quality: Fair Contrast 1: Total Dose (mL): Contrast 2: Total Dose (mL): MEASUREMENTS (Male / Female) Normal Values 2D ECHO LV Diastolic Diameter PLAX 3.2 cm 4.2 - 5.9 / 3.9 - 5.3 cm LV Systolic Diameter PLAX 1.8 cm IVS Diastolic Thickness 1.1 cm 0.6 - 1.0 / 0.6 - 0.9 cm LVPW Diastolic Thickness 1.1 cm 0.6 - 1.0 / 0.6 - 0.9 cm LV Relative Wall Thickness 0.7 RV Internal Dim ED PLAX 2.7 cm LA Volume 34.3 cm??? 18 - 58 / 22 - 52 cm??? LA Volume Index 19.2 cm???/m??? 16 - 28 cm???/m??? M-MODE Aortic Root Diameter MM 2.7 cm LA Systolic Diameter MM 3.2 cm LA Ao Ratio MM 1.2 AV Cusp Separation MM 1.6 cm DOPPLER AV Peak Velocity 114.6 cm/s AV Peak Gradient 5.3 mmHg AV Mean Velocity 78.8 cm/s AV Mean Gradient 2.8 mmHg AV Velocity Time Integral 21.3 cm LVOT Peak Velocity 103.0 cm/s LVOT Peak Gradient 4.2 mmHg LVOT Velocity Time Integral 17.7 cm MV Area PHT 3.4 cm??? Mitral E Point Velocity 50.8 cm/s Mitral A Point Velocity 85.7 cm/s Mitral E to A Ratio 0.6 MV Deceleration Time 221.4 ms MV E' Velocity 7.1 cm/s Mitral E to MV E' Ratio 7.1 TR Peak Velocity 219.9 cm/s TR Peak Gradient 19.3 mmHg Right Ventricular Systolic Press 24.3 mmHg FINDINGS Left Ventricle Mildly increased left ventricular wall thickness. Normal left ventricular systolic function with no obvious regional wall motion abnormalities. Left ventricular cavity size normal. Left ventricular ejection fraction is estimated at 55-60%. Right Ventricle Mild right ventricular dilatation. Right ventricular systolic pressure within normal limits. Right Atrium Normal right atrial size. Left Atrium Normal left atrial size. Mitral Valve Structurally normal mitral valve. Mitral valve thickened. Mitral annular calcification. Trace to mild mitral regurgitation. Aortic Valve No aortic valve stenosis or regurgitation. Tricuspid Valve Structurally normal tricuspid valve. Mild tricuspid regurgitation. Pulmonic Valve Structurally normal pulmonic valve. Pericardium No pericardial effusion. Aorta Normal size aortic root and proximal ascending aorta. CONCLUSIONS Normal LV function Previewed by: Dr. José Granados MD (Electronically Signed) Final Date: 19 October 2023 12:37
--- NOTE | 2023-10-19 13:09 | P.HPIM ---
History of Present Illness Chief Complaint: Chest pain Nidia is a 73-year-old white female. She has known history of vasospastic angina. She reports yesterday experiencing chest pain. It was described as pressure in quality. She had some shortness of breath. Denied any nausea or vomiting. Because it continued most of the day she came in the emergency room to be seen and evaluated. Initial Troponoin were negative, EKG essentially normal. Just CTA was negative.Patient was given aspirin and admitted for evaluation. Patient is not resting comfortably on the floor, now pain free.Denies any chest pain, pressure, shortness, nausea, vomiting, blood stool, or black stool Review of Systems All systems: negative Past Medical History Past Medical History: Asthma, Coronary Artery Disease (CAD), CVA/TIA, Diabetes Mellitus, Eye Disorder, GERD/Reflux, Hyperlipidemia, Hypertension, Myocardial Infarction ([place]), Musculoskeletal Disorder, Sleep Apnea/CPAP/BIPAP Additional Past Medical History / Comment(s): GLAUCOMA JOSE ALFREDO. EYES- GLASSES DAILY USE, IGA RESPONSE TRIGGERS ASTHMA, TRIGGER FINGER, LUMBAR DDD, TIA 2012- NO RESIDUAL, USES C-PAP Last Myocardial Infarction Date:: 09/2005 History of Any Multi-Drug Resistant Organisms: None Reported Past Surgical History: Joint Replacement, Orthopedic Surgery Additional Past Surgical History / Comment(s): LT KNEE ARTHROSCOPY. LT CTR. HX KIDNEY STONE REMOVAL 10/2012, JOSE ALFREDO LASER EYE SURG. PAIN CLINIC PROCEDURES, BREAST BX LT BREAST, right knee replacement, lithotripsy Past Anesthesia/Blood Transfusion Reactions: No Reported Reaction Past Psychological History: No Psychological Hx Reported Smoking Status: Never smoker Past Alcohol Use History: None Reported Past Drug Use History: None Reported - Past Family History Mother Family Medical History: Cancer Additional Family Medical History / Comment(s): FROM THYROID CA, Father Family Medical History: Cancer Additional Family Medical History / Comment(s): FROM STOMACH CA, HX A LCOHOLISM Medications and Allergies Home Medications Medication Instructions Recorded Confirmed Type Meloxicam 7.5 mg PO HS 06/10/14 10/18/23 History dilTIAZem HCL [dilTIAZem HCL 24Hr 360 mg PO DAILY 04/07/16 10/18/23 History ER] Amitriptyline HCl 50 mg PO DAILY 01/29/19 10/18/23 History Atorvastatin [Lipitor] 20 mg PO HS 04/23/20 10/18/23 History Pantoprazole [Protonix] 40 mg PO DAILY 04/23/20 10/18/23 History Isosorbide Mononitrate ER [Imdur] 30 mg PO DAILY 11/08/21 10/18/23 History Levothyroxine Sodium [Synthroid] 50 mcg PO DAILY 11/08/21 10/18/23 History sitaGLIPtin [Januvia] 100 mg PO DIRECTED 11/08/21 10/18/23 History lisinopriL [Zestril] 5 mg PO DAILY 10/11/22 10/18/23 History L.acidoph,Paracasei, B.lactis 1 tab PO DAILY 10/20/22 10/18/23 History [Probiotic] Calcium Carbonate/Vitamin D3 2 tab PO DAILY 05/05/23 10/18/23 History [Calcium 600 mg-D3 20 mcg (800 unit)] Cholecalciferol [Vitamin D3 (25 25 mcg PO DAILY 05/05/23 10/18/23 History Mcg = 1000 Iu)] Ferrous Sulfate [Feosol] 325 mg PO DAILY 05/05/23 10/18/23 History Multivit with Calcium,Iron,Min 1 tab PO DAILY 05/05/23 10/18/23 History [Women's Multivitamin] Allergies Allergy/AdvReac Type Severity Reaction Status Date / Time levofloxacin [From [facility]] Allergy Rapid Verified 10/18/23 22:25 Heart Rate Physical Exam Vitals: Vital Signs Temp Pulse Pulse Pulse Resp BP BP 10/19/23 07:20 97.5 F L 79 16 117/68 10/19/23 02:00 97.9 F 78 16 98/61 10/18/23 21:46 80 10/18/23 21:18 98.1 F 80 18 119/74 10/18/23 20:32 82 18 116/55 10/18/23 18:21 79 18 124/74 10/18/23 17:17 88 Pulse Ox 10/19/23 07:20 95 10/19/23 02:00 92 L 10/18/23 21:46 10/18/23 21:18 96 10/18/23 20:32 96 10/18/23 18:21 95 10/18/23 17:17 Intake and Output 11/21/23 11/22/23 11/22/23 22:59 06:59 14:59 Intake Total 118 Balance 118 Intake: Oral 118 Other: Voiding Method Toilet Toilet # Voids 0 1 Weight 73.482 kg General: The patient is awake and alert, in no distress, and does not appear acutely ill. HEENT: PERRLA, EOMI, normal oropharynx Neck: The neck is supple, there is no thyromegaly, lymphadenopathy, tenderness or JVD. Cardiovascular: S1S2 is normal, There is a regular rate and rhythm. No murmur, rub or gallop is appreciated. Respiratory: Lungs are clear to auscultationb bilaterally, respirations are non-labored, breath sounds are equal. Gastrointestinal: Soft, non-distended, without masses or organomegaly noted. There is no rebound or guarding present. Bowel sounds are unremarkable. nontender to palpation Musculoskeletal: Normal ROM, no tenderness, There is no pedal edema. There is no calf tenderness or swelling. No cords were appreciated. Neurological: CN II-XII intact, there are no obvious motor or sensory deficits. Coordination appears grossly intact. Speech is normal.he is awake alert and oriented 3 today. Skin: Skin is warm and dry and no rashes or lesions are noted. Results CBC & Chem 7: 10/18/23 12:54 10/18/23 12:54 Labs: Abnormal Lab Results - Last 24 Hours (Table) 10/18/23 10/18/23 10/19/23 Range/Units 12:54 17:27 03:45 D-Dimer 1.60 H (<0.60) mg/L FEU Glucose 127 H (74-99) mg/dL POC Glucose (mg/dL) (70-110) mg/dL Hemoglobin A1c (<=6.0) % Triglycerides 185.00 H (0.00-149.00) mg/dL 10/19/23 10/19/23 Range/Units 03:45 11:46 D-Dimer (<0.60) mg/L FEU Glucose (74-99) mg/dL POC Glucose (mg/dL) 176 H (70-110) mg/dL Hemoglobin A1c 6.1 H (<=6.0) % Triglycerides (0.00-149.00) mg/dL Chest x-ray: report reviewed CT scan - chest: report reviewed Thrombosis Risk Factor Assmnt - DVT/VTE Prophylaxis DVT/VTE Prophylaxis: Pharmacologic Prophylaxis ordered, Mechanical Prophylaxis ordered - Choose All That Apply Any of the Below Risk Factors Present?: Yes Each Factor Represents 1 point: Obesity (BMI >25) Other Risk Factors: Yes Each Risk Factor Represents 2 Points: Age 61-74 years Other congenital or acquired thrombophilia - If yes, enter type in comment: No Thrombosis Risk Factor Assessment Total Risk Factor Score: 3 Thrombosis Risk Factor Assessment Level: Moderate Risk Assessment and Plan (1) Chest pain Current Visit: Yes Status: Acute Code(s): R07.9 - CHEST PAIN, UNSPECIFIED SNOMED Code(s): 02096143 (2) Prinzmetal angina Current Visit: Yes Status: Acute Code(s): I20.1 - ANGINA PECTORIS WITH DOCUMENTED SPASM SNOMED Code(s): 70074827 (3) Essential (primary) hypertension Current Visit: Yes Status: Acute Code(s): I10 - ESSENTIAL (PRIMARY) HYPERTENSION SNOMED Code(s): 36585270 (4) Mixed hyperlipidemia Current Visit: Yes Status: Acute Code(s): E78.2 - MIXED HYPERLIPIDEMIA SNOMED Code(s): 569072855 (5) Type 2 diabetes mellitus with other circulatory complications Current Visit: Yes Status: Acute Code(s): E11.59 - TYPE 2 DIABETES MELLITUS WITH OTH CIRCULATORY COMPLICATIONS SNOMED Code(s): 84322280 (6) Type 2 diabetes mellitus with other specified complication Current Visit: Yes Status: Acute Code(s): E11.69 - TYPE 2 DIABETES MELLITUS WITH OTHER SPECIFIED COMPLICATION SNOMED Code(s): 40747648 Plan: I will consult cardiology. We will restart her home medication. Wait on further recommendations. It is possible. She may be discharged home later today.
--- NOTE | 2023-10-19 13:14 | P.DS ---
Providers Date of admission: 10/18/23 19:38 Expected date of discharge: 10/19/23 Attending physician: Richard Tinoco Consults: 10/18/23 19:37 Consult Physician Urgent Consulting Provider: Migel Ballard Consult Reason/Comments: cp Do you want consulting provider notified?: Yes Primary care physician: Richard Tinoco - Discharge Diagnosis(es) (1) Chest pain Current Visit: Yes Status: Acute (2) Prinzmetal angina Current Visit: Yes Status: Acute (3) Essential (primary) hypertension Current Visit: Yes Status: Acute (4) Mixed hyperlipidemia Current Visit: Yes Status: Acute (5) Type 2 diabetes mellitus with other circulatory complications Current Visit: Yes Status: Acute (6) Type 2 diabetes mellitus with other specified complication Current Visit: Yes Status: Acute (7) Gastro-esophageal reflux disease without esophagitis Current Visit: Yes Status: Acute Hospital Course: Nidia is a 73-year-old white female. She has known history of vasospastic angina. She reports yesterday experiencing chest pain. It was described as pressure in quality. She had some shortness of breath. Denied any nausea or vomiting. Because it continued most of the day she came in the emergency room to be seen and evaluated. Initial Troponoin were negative, EKG essentially normal. Just CTA was negative.Patient was given aspirin and admitted for evaluation. Patient is not resting comfortably on the floor, now pain free.Denies any chest pain, pressure, shortness, nausea, vomiting, blood stool, or black stool [id number]: patient has remained medically stable on the floor. Cardiology had seen her and increased her Imdur to 60 mg daily.She is negative for acute coronary syndrome. She denies any side effects at this time. She's tolerating a diet. A to echo ordered by cardiology is essentially normal. She has been cleared for discharge by them.She will follow up in my office in three or four days Plan - Discharge Summary Discharge Rx Participant: No New Discharge Prescriptions: New Nitroglycerin Sl Tabs [Nitrostat] 0.4 mg SUBLINGUAL Q5M PRN tab PRN Reason: Chest Pain Continue Meloxicam 7.5 mg PO HS dilTIAZem HCL [dilTIAZem HCL 24Hr ER] 360 mg PO DAILY Amitriptyline HCl 50 mg PO DAILY Atorvastatin [Lipitor] 20 mg PO HS Pantoprazole [Protonix] 40 mg PO DAILY Isosorbide Mononitrate ER [Imdur] 30 mg PO DAILY lisinopriL [Zestril] 5 mg PO DAILY L.acidoph,Paracasei, B.lactis [Probiotic] 1 tab PO DAILY Multivit with Calcium,Iron,Min [Women's Multivitamin] 1 tab PO DAILY Ferrous Sulfate [Iron (65 MG Elemental)] 325 mg PO DAILY Calcium Carbonate/Vitamin D3 [Calcium 600 mg-D3 20 mcg (800 unit)] 2 tab PO DAILY sitaGLIPtin [Januvia] 100 mg PO DIRECTED Levothyroxine Sodium [Synthroid] 50 mcg PO DAILY Cholecalciferol [Vitamin D3 (25 Mcg = 1000 Iu)] 25 mcg PO DAILY Discharge Medication List Meloxicam 7.5 mg PO HS 06/10/14 [History] dilTIAZem HCL [dilTIAZem HCL 24Hr ER] 360 mg PO DAILY 04/07/16 [History] Amitriptyline HCl 50 mg PO DAILY 01/29/19 [History] Atorvastatin [Lipitor] 20 mg PO HS 04/23/20 [History] Pantoprazole [Protonix] 40 mg PO DAILY 04/23/20 [History] Isosorbide Mononitrate ER [Imdur] 30 mg PO DAILY 11/08/21 [History] Levothyroxine Sodium [Synthroid] 50 mcg PO DAILY 11/08/21 [History] sitaGLIPtin [Januvia] 100 mg PO DIRECTED 11/08/21 [History] lisinopriL [Zestril] 5 mg PO DAILY 10/11/22 [History] L.acidoph,Paracasei, B.lactis [Probiotic] 1 tab PO DAILY 10/20/22 [History] Calcium Carbonate/Vitamin D3 [Calcium 600 mg-D3 20 mcg (800 unit)] 2 tab PO DAILY 05/05/23 [History] Cholecalciferol [Vitamin D3 (25 Mcg = 1000 Iu)] 25 mcg PO DAILY 05/05/23 [History] Ferrous Sulfate [Iron (65 MG Elemental)] 325 mg PO DAILY 05/05/23 [History] Multivit with Calcium,Iron,Min [Women's Multivitamin] 1 tab PO DAILY 05/05/23 [History] Nitroglycerin Sl Tabs [Nitrostat] 0.4 mg SUBLINGUAL Q5M PRN tab 10/19/23 [Rx] Follow up Appointment(s)/Referral(s): Richard Tinoco MD [Primary Care Provider] - 1-2 days José Granados MD [STAFF PHYSICIAN] - 1 Week Discharge Disposition: HOME SELF-CARE
[2023-10-19] MEDS ORDERED: MELOXICAM 7.5 MG TAB PO SCH (21:00)
[2023-10-19] MEDS ORDERED: ATORVASTATIN 20 MG TAB PO SCH (21:00)
== END 2023-10-19 14:46 | disposition home or self-care (01) ==
LOC: EC 12:39 → 6NMEDSUR 19:38
PROVIDERS: ADMIT Family Medicine; ATTEND Family Medicine
DX: R07.9 Chest pain, unspecified (principal); I25.111 Atherosclerotic heart disease of native coronary artery with angina pectoris with documented spasm; I10 Essential (primary) hypertension; K21.9 Gastro-esophageal reflux disease without esophagitis; G47.30 Sleep apnea, unspecified; J45.909 Unspecified asthma, uncomplicated; I25.10 Atherosclerotic heart disease of native coronary artery without angina pectoris; E78.2 Mixed hyperlipidemia; E11.59 Type 2 diabetes mellitus with other circulatory complications; I25.2 Old myocardial infarction; Z86.73 Personal history of transient ischemic attack (TIA), and cerebral infarction without residual deficits; Z79.1 Long term (current) use of non-steroidal anti-inflammatories (NSAID); Z79.890 Hormone replacement therapy; Z79.84 Long term (current) use of oral hypoglycemic drugs; Z79.82 Long term (current) use of aspirin; Z79.899 Other long term (current) drug therapy; Z88.1 Allergy status to other antibiotic agents
CPT/HCPCS: 96372; 99285; 36415; 93005; 93306; 85379; 80061; 80053; 84484; 85025; 85610; 85730; 83036; 71046; 71275; G0378 ×2; Q9967

== ENCOUNTER → 2023-11-29 | Outpatient (CLI) | payer MEDICARE, OTHER ==
--- NOTE | 2023-11-29 17:01 | MM ---
Reason for Exam: Screening (asymptomatic). Last mammogram was performed 1 year(s) and 1 month(s) ago. Patient History: Menarche at age 17. First Full-Term at age 26. Left ovary removed at age 36. Right ovary removed at age 36. Hysterectomy at age 36. Postmenopausal. Estrogen for 12 years from age 36 until age 48. Progesterone for 12 years from age 36 until age 48. Hormonal Contraceptives for 4 years from age 22 until age 26. 2002, Benign Excisional Biopsy on the left side. 04/25/2003, High risk Stereotactic Core Biopsy on the left side. 05/06/2000, Benign Stereotactic Core Biopsy on the left side. Risk Values: Tyra 5 year model risk: 2.7%. NCI Lifetime model risk: 6.9%. Prior Study Comparison: 11/18/2020 Bilateral Screening Mammogram, [facility]. 11/23/2021 Bilateral Screening Mammogram, [facility]. 11/25/2022 Bilateral MG 3D screening mammo w/cad, [facility]. Tissue Density: There are scattered fibroglandular densities. Findings: Analyzed By CAD. Findings are symmetrical and stable. The core marker within the left breast. No suspicious groups of microcalcifications, spiculated or lobular masses, architectural distortion or other secondary signs of malignancy are mammographically apparent. Overall Assessment: Benign, BI-RAD 2 Management: Screening Mammogram of both breasts in 1 year. A negative mammogram report should not preclude additional follow up of suspicious palpable abnormalities. Patient should continue monthly self breast exam. A clinical breast exam by your physician is recommended on an annual basis and results should be correlated with mammographic findings. Electronically signed and approved by: John Morrison D.O. Radiologis
== END | disposition home or self-care (01) ==
LOC: RADMAMWWP 09:13
PROVIDERS: ATTEND Surgery
DX: Z12.31 Encounter for screening mammogram for malignant neoplasm of breast (principal); Z78.0 Asymptomatic menopausal state
CPT/HCPCS: 77063; 77067

== ENCOUNTER → 2023-12-05 | Outpatient (CLI) | payer MEDICARE, OTHER ==
--- NOTE | 2023-12-08 08:27 | CT ---
EXAMINATION TYPE: CT thor lumbar spine wo con CT DLP: 1110 mGycm, Automated exposure control for dose reduction was used. DATE OF EXAM: 12/05/2023 10:49 AM CLINICAL INDICATION:Female, 73 years old with history of M54.50 low back pain; lower back pain, fall a few months ago COMPARISON: CT lumbar 02/04/2022 TECHNIQUE: Axial images of the thoracic and lumbar spine were obtained without contrast. Coronal and sagittal reformats were performed. 3-D reformats of the bones were created on a separate workstation and submitted for review. CT Contrast: Contrast used: mL of , none. Oral contrast used: none. FINDINGS: Please note the exam extends from C7 to the mid sacrum, therefore does not include the entire pelvis. Thoracic: Generalized osteopenia. No destructive lesions. No acute fracture. There are mild multilevel discogenic changes with slight levocurvature centered at T7-T8. No signific ant listhesis is seen. Mild loss of height T7, T8, T9 are suggested, appearance favors chronic. Other traore vertebral body heights appear maintained. No critical bony canal or neural foraminal stenosis id entified. Other: Moderate calcification of the aorta. Mild emphysematous changes and scarring in the lungs. Cys tectomy clips. No paraspinous soft tissue abnormalities. Lumbar: Concordant with the prior exam, last fully rib-bearing vertebra designated T12, there appear to be ti ny lumbar ribs at L1, 5 lumbar type vertebral bodies and partially lumbarized S1. Generalized osteope redd. No evidence of focal lytic/blastic lesion. Redemonstration of multilevel laminectomies with posterior hardware fusion at each level from L2 to S 1, and also extends to the pelvis where dual fixation screws bilaterally extend past the SI joints in to the iliac bones. Hardware appears intact and unchanged. No perihardware lucencies, except for the findings at L1-L2 described below. The screws take the expected intraosseous course, except for the s uperiormost pelvic screw on the right, which as before extends slightly beyond the cortical surface o f the iliac bone, however this area is only partially seen on the current study and the previous disp laced fragment is not seen/assessed. Unchanged interbody disc space prosthetic devices at L2-L3 and L 3-L4, with no evidence of retropulsion. Vertebroplasty cement again seen at L2. Transfixed grade 2 anterolisthesis L4 on L5 and grade 1 anterolisthesis L5 on S1, unchanged. L3-L4 le darryn shows slight additional interbody bony fusion, otherwise unchanged. Moderate to severe degenerati ve disc disease changes L4-L5 appear similar. Vertebral body heights L2-L5 are preserved and unchange d. At the L1-L2 level, there has been significant change from the prior exam. The vertebroplasty cement in the mid to superior L2 vertebral body now appears to be surrounded by lucency, likely fluid, which probably extends in contiguity with the disc space. There has been progressive overall loss of heigh t of L2, now mild to moderate with slight anterior wedge configuration. There has been significant na rrowing of the L1-L2 disc space, before relatively preserved and now with little remaining, and there is evidence of vacuum disc phenomenon. Additionally, there has been progressive irregularity along t he inferior endplate L1 with some underlying heterogeneous sclerosis. Along with this, the anterior i nferior margin of L1 appears driven inferiorly into the anterior superior aspect of the L2 vertebral body, creating a mild gibbus deformity here. There is some gas seen within the anterior epidural spac e near the level of the disc and extending cranially posterior to the L1 vertebral body, which likely emanates from the L1-L2 vacuum disc. There is increased marginal osteophyte formation L1-L2 includin g mild spondylotic ridging posteriorly at L1-L2 which causes mild to moderate narrowing of the anteri or spinal canal. These deformities also cause moderate to severe right and moderate left neural beau inal stenoses. Spinal canal and foramina farther inferiorly in the lumbar spine show no significant i nterval change. IMPRESSION: Thoracolumbar spine: 1. Postoperative changes with posterior interbody fusion extending from L2 to the pelvis, prosthetic disc interspace devices L2-L3 and L3-L4, appear unchanged. Vertebroplasty cement again seen at L2. G rade 2 anterolisthesis L4-5 and grade 1 anterolisthesis L5-S1 appear unchanged. 2. Significant progressive discogenic changes at L1-L2 with loss of the disc space, endplate changes at L1 and L2 with corresponding mild to moderate vertebral body height loss and gibbus deformity, as well as some lucency/fluid surrounding the vertebroplasty cement L2. This could represent osteonecro sis/degenerative changes, however discitis/osteomyelitis cannot be excluded. Clinical correlation wit h ESR and CRP levels recommended to help exclude spinal osteomyelitis. Follow-up study may also be of benefit. 3. The #2 process results in mild to moderate narrowing of the anterior spinal canal L1-L2, moderate to severe right and moderate left neural foraminal stenosis. 4. Mild multilevel thoracic spondylosis, without evidence of an acute bony abnormality in the thorac ic spine.
== END | disposition home or self-care (01) ==
LOC: RADCTMAIN 10:12
PROVIDERS: ATTEND Orthopaedic Surgery
DX: M43.17 Spondylolisthesis, lumbosacral region (principal); M99.73 Connective tissue and disc stenosis of intervertebral foramina of lumbar region; M47.814 Spondylosis without myelopathy or radiculopathy, thoracic region; Z98.890 Other specified postprocedural states
CPT/HCPCS: 72128; 72131

== ENCOUNTER → 2023-12-08 | Outpatient (CLI) | payer MEDICARE, OTHER ==
--- NOTE | 2023-12-08 14:32 | P.PN ---
Subjective Progress Note Date: 12/08/23 Principal diagnosis: fibrocystic breast disease fibrocystic breast changes The patient is a 73-year-old white female who comes for breast examination. At this time she has no complaints related to her breast. She has no masses in her breasts. No nipple discharge or skin changes. She has no recent history of any trauma or infection of the breast. He has not complained of any new lumps masses or nodules in her breast. Her last bilateral mammogram was 11-29-23 this was benign BIRAD 2. Tyra Risk 2.7 Patient has declined chemo prophylaxis. Caffeine: 2 cups of coffee per day Nicotine: Negative Chocolate: Negative Hormones: Negative Family History: mother: thyroid cancer father: stomach cancer Hormonal History: menarche: 17 : 2, 2 children, breast fed: one, first at 27 menopause: hysterectomy at 41, cyst on ovaries, took both ovaries as well BCP: 8 years hormones: 10 years, estrogen Past Surgical History: 1. hysterectomy and bilateral oophrectomy 2. spinal fusion 3. appy 4. gallbladder 5. ankle fusion 6. breast biopsy 7. bladder surgery 8. heart cath 9. left total knee replacement 10. kidney stone/ lithotripsy 11. right total knee replacement 12. cataract surgery 13. spinal fusion L2 to S1 14. kidney stones removed in October 2022 15. right shoulder replacement Past Medical History: 1. hypothyroid 2. HTN 3. HINI flu in hospital 4. diabetic/ on metformin 5. back pain/ sciatica Social History smoke: none alcohol; none drugs: none Objective - Constitutional General appearance: Present: cooperative - EENT Eyes: Present: EOMI ENT: Present: hearing grossly normal - Neck Neck: Present: normal ROM - Respiratory Respiratory: bilateral: CTA - Cardiovascular Heart sounds: normal: S1, S2 - Integumentary Integumentary: Present: normal turgor - Musculoskeletal Musculoskeletal: Present: gait normal - Psychiatric Psychiatric: Present: A&O x's 3, appropriate affect, intact judgment & insight - Additional findings Additional findings: Breast Exam: BRA: 38C inspection: bilateral grade 3 ptosis palpation: right breast: multi positional exam fibrocystic changes no discrete dominant masses or nodules of concern Right axilla: No adenopathy of concern Left breast: Multi-positional exam fibrocystic changes no discrete dominant masses or nodules of concern; well healed scar left breast Left axilla: No adenopathy of concern Assessment and Plan Assessment: Impression: 1. hypothyroid 2. HTN 3. HINI flu in hospital 5 years ago 4. diabetic/ on metformin 5. back pain/ sciatica 6. Fibrocystic breast changes 7. Recent bilateral mammogram benign BIRADS 2 done 11-29-23 Plan: 1. Repeat bilateral mammogram in 1 year with physician exam at that time 2. Questions or concerns patient to follow up sooner CC: Dr. Tinoco
== END ==
LOC: WWCWWP 13:31
PROVIDERS: ATTEND Surgery
DX: Z12.31 Encounter for screening mammogram for malignant neoplasm of breast (principal); E03.9 Hypothyroidism, unspecified; I10 Essential (primary) hypertension; N60.19 Diffuse cystic mastopathy of unspecified breast; E11.9 Type 2 diabetes mellitus without complications; Z87.442 Personal history of urinary calculi; Z90.710 Acquired absence of both cervix and uterus; Z96.611 Presence of right artificial shoulder joint; Z98.890 Other specified postprocedural states; Z88.1 Allergy status to other antibiotic agents; Z79.899 Other long term (current) drug therapy

== ENCOUNTER → 2023-12-20 | Outpatient (CLI) | payer MEDICARE, OTHER ==
[2023-12-20 16:51] LABS: HCT 40.4 % (37.2-46.3); MCH 28.6 pg (27.0-32.0); MCHC 32.2 g/dL (32.0-37.0); Mean Platelet Volume 11.2 FL (9.5-12.2); NRBC Per 100 WBC 0 X 10*3/uL (0.00-0.01); Platelet Count 211 X 10*3/uL (140-440); RBC 4.54 X 10*6/uL (4.10-5.20); RDW 13.9 % (11.5-14.5); WBC 7.62 X 10*3/uL (4.50-10.00)
[2023-12-20 17:32] LABS: ALT 18 U/L (8-44); AST 21 U/L (13-35); Albumin 4.4 g/dL (3.8-4.9); Albumin/Globulin Ratio 1.57 Ratio (1.60-3.17); Alkaline Phosphatase 118 U/L (41-126); Calcium 9.4 mg/dL (8.7-10.3); Carbon Dioxide 24.8 mmol/L (21.6-31.8); Chloride 104 mmol/L (96-109); Globulin 2.8 g/dL (1.6-3.3); Glucose 90 mg/dL (70-110); Potassium 4.6 mmol/L (3.5-5.5); Sodium 141 mmol/L (135-145); Total Bilirubin 0.3 mg/dL (0.3-1.2); Total Protein 7.2 g/dL (6.2-8.2)
[2023-12-20 23:35] LABS: INR 0.98 sec (0.93-1.11); Prothrombin Time 10.6 sec (9.9-11.9)
== END | disposition home or self-care (01) ==
LOC: LABWHC1 08:57
PROVIDERS: ATTEND Orthopaedic Surgery
DX: S32.019A Unspecified fracture of first lumbar vertebra, initial encounter for closed fracture (principal); M51.36 Other intervertebral disc degeneration, lumbar region; Y99.9 Unspecified external cause status
CPT/HCPCS: 36415; 80053; 82306; 85027; 85610; 86850; 86900; 86901; 87070

== ENCOUNTER → 2023-12-20 | Outpatient (CLI) | payer MEDICARE, OTHER ==
--- NOTE | 2023-12-20 11:17 | BD ---
EXAMINATION TYPE: Axial Bone Density DATE OF EXAM: 12/20/2023 CLINICAL HISTORY: 73 years old Female. ICD-10 CODE: M81.8 OTHER OSTEOPOROSIS WITHOUT CURRENT PATHOLO GI Height: 157 Weight: 57.25 FRAX RISK QUESTIONS: Family History (Parent hip fracture): no History of Fracture in Adulthood: no Secondary Osteoporosis: yes 3. Menopause before 45: 36 total RISK FACTORS HISTORY OF: Surgery to lumbar Spine: yes When: 2021 MEDICATIONS: Thyroid Medications: yes Which medication: Levothyroxine How Lon+ years Osteoporosis Medications: yes Which medication: Other How Long: one time iv EXAM MEASUREMENTS: Bone mineral densitometry was performed using the [employer] System. Bone mineral density about the R hip (g/cm2): 0.818 Bone mineral density about the L hip (g/cm2): 0.866 T Score values are as follows: -----R Neck: -2.7 -----L Neck: -2.3 -----R Total: -1.5 -----L Total: -1.1 Z Score values are as follows: -----R Neck: -1.0 -----L Neck: -0.6 -----R Total: 0.0 -----L Total: 0.3 Bone mineral density has: Increased 2.7% since study of: 11/25/2022 Bone mineral density about the L Wrist (g/cm2): 0.600 T Score values are as follows: -----Dist. R+U: -1.1 -----Prox. R+U: -1.4 -----Radius total: -1.2 Z Score values are as follows: -----Dist. R+U: 1.0 -----Prox. R+U: 0.6 -----Radius total: 0.8 Bone mineral density baseline for lt wrist FRAX%s: The graph provided illustrates a 16.3% chance for a major osteoporotic fx and a 4.9% chance f or the hips probability for fx in 10 years time. IMPRESSION: Osteoporosis (T Score less than -2.5). There is increased fracture risk and therapy is usually indicated based on age. Re-Screen 1-2 years. NOTE: T-SCORE=SD OF THE YOUNG ADULT MEAN.
== END | disposition home or self-care (01) ==
LOC: RADBDWWP 09:23
PROVIDERS: ATTEND Family Medicine
DX: M81.8 Other osteoporosis without current pathological fracture (principal)
CPT/HCPCS: 77080

== ENCOUNTER → 2023-12-30 | Outpatient (CLI) | payer MEDICARE, OTHER ==
[2023-12-30 11:56] LABS: Chol/HDL Ratio 2.61 Ratio; VLDL Calculation 17.44 mg/dL (5.00-40.00)
== END | disposition home or self-care (01) ==
LOC: LABWHC1 06:45
PROVIDERS: ATTEND Family Medicine
DX: E78.2 Mixed hyperlipidemia (principal); E03.9 Hypothyroidism, unspecified
CPT/HCPCS: 36415; 80061; 84443

== ENCOUNTER 2024-01-02 08:21 | Inpatient (IN) | payer MEDICARE, OTHER ==
[2023-12-26 16:11] VITALS: BMI 31.8
--- NOTE | 2024-01-01 16:11 | P.HPOR ---
History of Present Illness H&P Date: 12/14/23 .D:Date: 12/14/23 : 08:40am .T:Title: [facility] Date of :52 S03Asdofcypi: NKDA Age: 73 year Height: 4'11" Weight: 158 lbs BP:115/75 BMI: 31.91 kg/m2 Occupation: Retired VAS: CHIEF COMPLAINT: Re-check on low back pain / Review CT scan results of thoracic and lumbar spine DOI: Chronic DOS: 02/11/2022 PO week/yr: 1 year and 10 months ASSESSMENT: 1. s/p L2-PELVIS decompression and fusion 2. L1-2 fracture with severe ASD 3. Low back pain .DX:Diagnosis: Closed lumbar fracture : ICD10 = S32.009S / ICD9 = 805.4 / SNOMED = 681854327 .DX:Diagnosis: Lumbar spondylosis with myelopathy : ICD10 = M47.16 / ICD9 = 721.42 / SNOMED = 85088865 .DX:Diagnosis: Low back pain : ICD10 = M54.50 / ICD9 = 724.2 / SNOMED = 449873106 PLAN: All options were reviewed today, we decided the best course of action would be: Surgical stabilization in the form of the following: -Open treatment L1-2 fracture with T11-L2 stabilization, with T10 kyphoplasty -No new Rx today -Wear LSO brace at all times when up and about. Do not sleep or shower in it. -Ambulate every awake hour, daily. - Take pain medications and post op medications as needed and as directed - Ice and rest for pain and swelling control. -I discussed at length with the patient different surgical and nonsurgical options. We discussed different types of surgical options and would be the best for the patient due to the fracture that is happening and adjacent segment disease at L1-L2 I do feel it necessary to extend her construct which is already at L2 through her pelvis up to T10. We would likely extend up to T10 with a kyphoplasty to prevent further breakdown above this. Patient understands this and is comfortable with that. We discussed risks and benefits of the procedure including risk of bleeding infection damage to surrounding tissue risk of reope ration risk of anesthesia up to and including she is willing to assume these risks and all the risks of surgery. We will board her for surgery today. Follow-up: preoperative HISTORY: The patient returns to the office today for a re-check on her low back pain and to review recent CT scan results of the thoracic and lumbar spine. she states continued back pain as well as worsening of her back pain despite treatment with medications bracing. Computed tomography scan is reviewed with her today in the office. She continues to have issues with her thighs and hips as well with increasing radiating pain. She denies any other symptoms at this time no bowel or bladder issues no peroneal numbness or tingling. The patient's past medical history; past surgical history; family history; medicines; allergies and social history have been reviewed and are as stated elsewhere in the chart. 16 points review of systems completed and as stated in HPI, all other systems reviewed are negative. PHYSICAL EXAM: -Patient is alert and oriented 3 appears well-nourished well-hydrated is in no acute distress. They do not appear septic. -On exam the patient has no tenderness to palpation around the incision site. No other areas of concern at this time. -Upper extremities: 5 out of 5 strength in all major muscle groups. -Lower extremities: 4 out of 5 strength in all major muscle groups she has deconditioning in her lower extremities -There isFROM that is painless of the b/l UE and LE in all major joints. -They are intact to light touch sensation in C5-T1 nerve distribution as well as the L2-S2 distribution. -DTRs 2/4 all upper and lower -Patient has palpable distal pulses in all four extremeties -Compartments are soft and compressible. -Neg Plata's -No Clonus -Neg Babinski -Neg Matt's -No tensioning signs. -Cranial nerves II through XII are grossly intact. -Overall alignment is well-maintained in the sagittal coronal planes. -Surgical incision: Healed well. RADIOGRAPHS: CT scan completed at [facility] on 12/05/2023 of the Thoracic Spine: there was a review of the patient. This demonstrates the L1-L2 fracture at the bottom of this imaging. There is severe AST secondary to this fracture along with invagination of the cement from the screws into L1. There is instability at this level secondary to this. There is stenosis as well. Overall alignment is compromised secondary to this with kyphosis at this level. No other fractures noted. Osteopenia noted. CT scan completed at [facility] on 12/05/2023 of [facility] Lumbar Spine: similar findings as above L1-L2 fracture with severe ASD invagination of hardware into L1 with instability kyphosis alignment disturbance. Osteopenia noted as well. No further fractures or lesions otherwise noted. Postsurgical hardware from L2 to pelvis in good position without, complicating process seen Spine Surgery Risk Review Ms. Greene is presenting for evaluation of mid, low back, and bilateral lower extremity pain. It was my pleasure to have seen and examined Ms. Greene. In our visit today we have had a chance to go over subjective complaints, physical examination findings and treatments including the natural course history without intervention and various interventional options. The patients imaging demonstrates: CT scan completed at [facility] on 12/05/2023 of the Thoracic Spine: there was a review of the patient. This demonstrates the L1-L2 fracture at the bottom of this imaging. There is severe AST secondary to this fracture along with invagination of the cement from the screws into L1. There is instability at this level secondary to this. There is stenosis as well. Overall alignment is compromised secondary to this with kyphosis at this level. No other fractures noted. Osteopenia noted. CT scan completed at [facility] on 12/05/2023 of w Lumbar Spine: similar findings as above L1-L2 fracture with severe ASD invagination of hardware into L1 with instability kyphosis alignment disturbance. Osteopenia noted as well. No further fractures or lesions otherwise noted. Postsurgical hardware from L2 to pelvis in good position without, complicating process seen On physical exam, Ms. Greene demonstrates: continue progressive back pain. Lower extremity radiculopathy. Severely limited ADLs secondary to pain. Feeling of instability. I have explained to the patient that as their condition progresses it will cause further neurological deficits and eventual paralysis. Based on the patients imaging, physical exam, and the rapid progression and disabling nature of their symptoms, at this time I recommend surgery in the form of a: open treatment of L1-2 fracture with T11 through L2 stabilization and T10 kyphoplasty . I discussed the risk and benefits of this procedure at length with Ms. Greene. The patient agreed to considered pursuing the procedure abovementioned. Prior to surgery, she should follow up with her PCP (Cardio, ID, IM etc) for clearance. Questions were invited and answered, and the patient wishes to proceed as outlined below. Currently, I am recommendin.open treatment of L1-2 fracture with T11 through L2 stabilization and T10 kyphoplasty 2.Follow up with PCP for surgical clearance 3.Review of surgical risks and benefits as well as an educational packet on the proposed surgical procedure. Risks: All surgical procedures come with inherent risks, including those related to positioning, anesthesia, intraoperative findings, and postoperative complications. It is important to understand that surgery does not come with any guarantee of a successful outcome as complications and adverse events are always possible. The patient was given a handout in office today discussing the surgical procedure and risks associated with the intervention, both of which were discussed with the patient. These risks include but are not limited to the following: * Experiencing same, different or even worse symptoms in back, neck, arms, or legs compared to before surgery. Requiring further surgery or other forms of treatment presently or at some time in the future at same or other levels of the intended spine surgery. On an extreme but fortunately relatively rare basis severe complication such as blindness, stroke, heart attack, temporary and/or permanent nerve injury, paralysis, coma, or may occur, sometimes without known explanation. Surgical complications may include but are not limited to risk of infection, fluid accumulation in the surgical dissection site, including a seroma or hematoma, that requires additional surgery, wound drainage, bleeding, new numbness or weakness, vision changes/loss, spinal fluid leakage, non-healing and/or infected incision, headaches, difficulty or inability to swallow, hoarseness, hemopneumothorax, pneumothorax, impotence, retrograde ejaculation, vaginal dryness; injury to nerves, spinal cord, blood vessels, lymphatics or other vital organs (i.e., bowel injury, injury to the great vessels); heterotopic bone formation; complications related to the hardware such as screws, rods, cages including misplaced hardware, device failure, instrumentation at the wrong spine level, hardware fracture/breakage, or hardware loosening; vertebral failure of the spinal column above or below the newly placed hardware; retained surgical instrumentations or devices and the need for further surgery. * Medical risks of the planned spine surgery include but are not limited to generalized Infections to the whole body or local areas outside of the surgical site (sepsis), heart attack, bleeding, anaphylaxis, meningitis, seizure, epilepsy, hearing loss, burn [place], laceration of the head or other areas of the body, bruising, hypersensitivity of the skin, bladder over distension; allergic reaction; shoulder injury related to positioning; fat, blood and air clots to other areas of the body like heart, lungs, brain; failure of internal organs such as lungs, kidneys, liver and excessive bleeding. If blood transfusions are necessary, note that transfusions may cause intolerance reactions such as anaphylaxis or other complex reactions. Despite best efforts, the results of spine surgery might not heal in terms of bone, soft tissues such as skin, fascia, ligaments, and joints. Additionally, in order to achieve best possible results, spine surgery may be carried out beyond the initially planned levels and involve decompression, fusion including insertion of hardware at levels other than the original intended area of surgical interest change some portions of the procedure in order to ensure the best possible outcomes. With spine surgery and spinal fusion, there are different off label uses of instrumentation (devices, implants and hardware) as well as biological substances (bone morphogenic proteins, demineralized bone matrix) as well as using extra bone from allograft sources (i.e. cadaver bone) or autograft (iliac crest bone, ribs, or the spine itself). The patient has been given information about these practices and their inherent risks and benefits. [facility] is an educational center that serves as a training facility for neurosurgical and orthopedic ACCOUNTS RECEIVABLE CLERK and Nursing students. Physician assistants are medically trained surgical providers who function in the outpatient, inpatient, and operating room setting under the direct supervision of the attending surgeon. [facility] has multiple operating rooms with single and overlapping rooms running daily. They currently function under the required guidelines as produced by the [facility] Finance Committee with regards to the overlapping rooms and will continue to comply with changes to this policy as they occur. The requirements include and are complied with as follows: (1) the critical portions of the overlapping rooms will not occur at the same time, (2) the attending physician will be physically present during the critical portions of the procedure and immediately available during the entire case, and (3) a back-up attending is designated should the primary attending not be immediately available. The patient has had a chance to review all the listed information, has been given print outs detailing this information, and has had all his/her questions answered to their satisfaction. It was my pleasure to have seen and examined Ms. Jc. In our visit today we have had a chance to go over my understanding of our patient's current condition, the natural course history without intervention and various interventional options. Questions were invited and answered, and the patient wishes to proceed as outlined above. I have seen and examined the patient for 25 minutes and we have spent more than 50% of the time in repeat and detailed counseling about the patient's condition, its natural course history with out and as much as can be predicted with surgery and re-review of various surgical treatment options. In conclusion, Ms. Greene requested we proceed with the above suggested surgery and are willing to accept risks and limitations of the suggested surgery as nature of the disease process and our best attempts at treatment for the condition. Thank you again for allowing us to be part of your patient's care. Please don't hesitate to contact me if you have any further questions. Patient Education: (Informational booklet, instructions, etc) given at today's appointment: Yes .ED:Patient Education: Y Medications Reviewed: YES Attestation: In our visit today Ms. Greene and I have had a chance to go over my understandin g of the patient's current condition, the natural course history without intervention and various interventional options. Questions were invited and answered, and the patient wishes to proceed as outlined above. I will be sure to keep you updated afterMs. Greene returns here for further follow-up. Thank you again for your referral. Please do not hesitate to contact me if you have any further questions. Signed and authenticated by: Amadeo Oneill [facility] [address] [place] [id number] This message is confidential, intended only for the named recipient(s) and may contain information that is privileged or exempt from disclosure under applicable law. If you are not the intended recipient(s), you are notified that the dissemination, distribution or copying of this information is strictly prohibited. If you received this message in error, please notify the sender then delete this message. Patient verbalizes understanding of the information discussed. The above note was initiated by Sisi Owusu, physician recording assistant engineer for Dr. Amdaeo Syed. This note has been reviewed by Dr. Syed, who has made his personal changes and impressions for this document. # SIGNED BY Amadeo Syed (GOO)12/14/2023 05:31PM Past Medical History Past Medical History: Asthma, Coronary Artery Disease (CAD), CVA/TIA, Diabetes Mellitus, GERD/Reflux, Hyperlipidemia, Hypertension, Myocardial Infarction (NE), Musculoskeletal Disorder, Sleep Apnea/CPAP/BIPAP Additional Past Medical History / Comment(s): GLASSES DAILY USE, IGA RESPONSE TRIGGERS ASTHMA, TRIGGER FINGER, LUMBAR DDD, TIA 2012- NO RESIDUAL, USES C-PAP, HX LUMBAR FX-FELL ABOUT 1 YEAR AGO, HX KIDNEY STONES Last Myocardial Infarction Date:: 09/2005 History of Any Multi-Drug Resistant Organisms: None Reported Past Surgical History: Back Surgery, Breast Surgery, Joint Replacement, Orthopedic Surgery Additional Past Surgical History / Comment(s): LT KNEE ARTHROSCOPY. LT CTR. HX KIDNEY STONE REMOVAL 10/2012, [facility]IN [facility]IN[facility] PROCEDURES, BREAST BX LT BREAST-BENIGN, right knee replacement, lithotripsy, BILAT CATARACTS REMOVED WITH LENS IMPLANTS, COLONOSCOPY, SPINAL FUSION, RT SHOULDER REPLACEMENT Past Anesthesia/Blood Transfusion Reactions: No Reported Reaction Additional Past Anesthesia/Blood Transfusion Reaction / Comment(s): WAS ON A VENT FOR 24 HOURS AFTER LAST SPINAL FUSION. NO HX BLOOD TRANSFUSION Smoking Status: Never smoker - Past Family History Mother Family Medical History: Cancer Additional Family Medical History / Comment(s): FROM THYROID CA, Father Family Medical History: Cancer Additional Family Medical History / Comment(s): FROM STOMACH CA, HX ALCOHOLISM Medications and Allergies Home Medications Medication Instructions Recorded Confirmed Type Meloxicam 7.5 mg PO HS 06/10/14 12/26/23 History dilTIAZem HCL [dilTIAZem HCL 24Hr 360 mg PO DAILY 04/07/16 12/26/23 History ER] Amitriptyline HCl 50 mg PO DAILY 01/29/19 12/26/23 History Atorvastatin [Lipitor] 20 mg PO HS 04/23/20 12/26/23 History Pantoprazole [Protonix] 40 mg PO DAILY 04/23/20 12/26/23 History Levothyroxine Sodium [Synthroid] 50 mcg PO DAILY 11/08/21 12/26/23 History sitaGLIPtin [Januvia] 100 mg PO DAILY 11/08/21 12/26/23 History lisinopriL [Zestril] 5 mg PO DAILY 10/11/22 12/26/23 History L.acidoph,Paracasei, B.lactis 1 tab PO DAILY 10/20/22 12/26/23 History [Probiotic] Calcium Carbonate/Vitamin D3 2 tab PO DAILY 05/05/23 12/26/23 History [Calcium 600 mg-D3 20 mcg (800 unit)] Cholecalciferol [Vitamin D3 (25 25 mcg PO DAILY 05/05/23 12/26/23 History Mcg = 1000 Iu)] Ferrous Sulfate [Iron (65 MG 325 mg PO DAILY 05/05/23 12/26/23 History Elemental)] Multivit with Calcium,Iron,Min 1 tab PO DAILY 05/05/23 12/26/23 History [Women's Multivitamin] Nitroglycerin Sl Tabs [Nitrostat] 0.4 mg SUBLINGUAL Q5M PRN tab 10/19/23 12/26/23 Rx Isosorbide Mononitrate [Isosorbide 60 mg PO DAILY 12/26/23 12/26/23 History Mononitrate ER] Allergies Allergy/AdvReac Type Severity Reaction Status Date / Time levofloxacin [From Levaquin] Allergy Rapid Verified 12/26/23 15:46 Heart Rate Physical Examination Osteopathic Statement: *. No significant issues noted on an osteopathic structural exam other than those noted in the History and Physical/Consult.
[~2024-01-02 08:21] MED LIST changes: -ACETAMINOPHEN TAB 500 MG TAB PO PRN; -DEXAMETHASONE SOD PHOSPHATE 4 MG/ML 1 ML VIAL IV ONE; -LIDOCAINE 1% (10MG/ML) FOR IV START INTRADERMA PRN; -MELOXICAM 7.5 MG TAB PO PRN; -METOCLOPRAMIDE 5 MG/ML 2 ML VIAL IVP PRN; +MIDAZOLAM 2 MG/2 ML VIAL IV PRN; -ONDANSETRON 4 MG/2 ML VIAL IVP ONE; +TRANEXAMIC 1,000 MG/100ML-NACL 1,000 MG in SALINE 1 100ML.BAG IVPB PRN; -TRANEXAMIC ACID IN NACL,ISO-OS 1,000 MG in SALINE 1 100ML.BAG IVPB PRN
[2024-01-02 09:31] LABS: Glucose,Whole Blood 97 mg/dL (70-110)
[2024-01-02] MEDS: LACTATED RINGERS 1,000 ML IV SCH (09:36)
[2024-01-02] MEDS: ACETAMINOPHEN TAB 500 MG TAB PO PRN (09:37)
[2024-01-02] MEDS: GABAPENTIN 300 MG CAP PO PRN (09:37)
[2024-01-02] MEDS: ONDANSETRON 4 MG/2 ML VIAL IVP PRN (09:37)
[2024-01-02] MEDS ORDERED: fentaNYL (PF) 50 MCG/ML 2 ML AMP ONE (10:39)
[2024-01-02] MEDS ORDERED: GLYCOPYRROLATE 0.2 MG/ML 2 ML VIAL ONE (10:39)
[2024-01-02] MEDS ORDERED: PROPOFOL 10 MG/ML 20 ML VIAL IV ONE (10:39)
[2024-01-02] MEDS ORDERED: NEOSTIGMINE 1 MG/ML 10 ML VIAL ONE (10:39)
[2024-01-02] MEDS ORDERED: TRANEXAMIC 1,000 MG/100ML-NACL PREMIX BAG ONE (10:39)
[2024-01-02] MEDS ORDERED: LIDOCAINE 1% INJ 10MG/ML (20 ML MDV) ONE (10:39)
[2024-01-02] MEDS ORDERED: PHENYLEPHRINE-0.9% NACL SYG 1,000 MCG/10 ML SYRINGE ONE (10:39)
[2024-01-02] MEDS ORDERED: KETAMINE HCL IN 0.9 % NACL 50 MG/5 ML SYRINGE ONE (10:39)
[2024-01-02] MEDS ORDERED: ROCURONIUM 10 MG/ML (5 ML VIAL) IV ONE (10:39)
[2024-01-02] MEDS ORDERED: SUCCINYLCHOLINE CHLORIDE 200 MG/10 ML VIAL IV ONE (10:39)
[2024-01-02] MEDS ORDERED: HYDROmorphone (PF) 1 MG/ML ONE (10:39)
[2024-01-02] MEDS: THROMBIN (BOVINE) 5,000 UNIT VIAL TOPICAL ONE ×2 (11:25)
[2024-01-02] MEDS: ceFAZolin 3,000 MG in SODIUM CHLORIDE 0.9% IRRIGATIO 3,000 ML IRRIGATION ONE (11:25)
[2024-01-02] MEDS: GENTAMICIN 80 MG in SODIUM CHLORIDE 0.9% IRRIGATIO 3,000 ML IRRIGATION ONE (11:25)
[2024-01-02] MEDS: GELATIN SPONGE,ABSORB (LARGE) 1 EACH SPONGE TOPICAL ONE (11:25)
[2024-01-02] MEDS: VANCOMYCIN 1,000 MG VIAL MISCELLANE ONE (13:40)
--- NOTE | 2024-01-02 14:24 | FL ---
EXAMINATION TYPE: FL guidance operating room, XR lumbar spine 2 or 3V Intraoperative/procedural fluor oscopic services were provided. Total fluoroscopy time is 32 seconds with a total of 11 submitted toma ges to PACS. Please see the operative/procedural note for further details. DAP: 3101.90 cGycm2
[2024-01-02] MEDS ORDERED: HYDROmorphone 0.5 MG/0.5 ML SYRINGE IVP PRN (14:35)
[2024-01-02] MEDS ORDERED: SENNOSIDES-DOCUSATE SODIUM 1 EACH TAB PO PRN (14:35)
[2024-01-02] MEDS ORDERED: MAGNESIUM HYDROXIDE 2,400 MG/30 ML CUP PO PRN (14:35)
[2024-01-02 14:52] LABS: Glucose,Whole Blood 133 mg/dL (70-110)
[2024-01-02] MEDS: LACTATED RINGERS 1,000 ML IV ONE (17:00)
--- NOTE | 2024-01-02 17:10 | P.OP ---
Date of Procedure: 01/02/24 Preoperative Diagnosis: 1. L1-2 Fracture with instability, spondylosis, severe and stenosis 2. s/p L2-Pelvis decompression and fusion 3. s/p multiple FFS 4. LE radiculopathy 5. LE weakness 6. Complex medical patient Postoperative Diagnosis: 1. L1-2 Fracture with instability, spondylosis, severe and stenosis 2. s/p L2-Pelvis decompression and fusion 3. s/p multiple FFS 4. LE radiculopathy 5. LE weakness 6. Complex medical patient Procedure(s) Performed: 1. L1-2 OPEN TREATMENT FRACTURE WITH REDUCTION AND STABILIZATION 2. L1-2 POSTEROLATERAL AND INTERBODY FUSION 3. T10-L2 INSTRUMENTATION 4. L1-2 BILATERAL LAMINECTOMY FACETECTOMYAND FORAMINOTOMY FOR DECOMPRESSION, DEFORMITY CORRECTION 5. INSERTION OF BIOMECHANICAL DEVICE, CAGE AT L1-2 6. USE OF OPAL NAVIGATION FOR SCREW PLACEMENT USE OF IONM ALL SCREWS TESTING > 20 mA CPTMOD 22 THIS CASE TOOK 75% LONGER THAN EXPECTED DUE TO CORMORBID CONDITIONS, EXTENT OF LUMBAR DISEASE AND HIGH TECHNICALITY OF THE CASE. Implants: [employer] EVEREST SCREW AND DOMINIK SYSTEM LIFE SPINE PROLIFT CAGE [id number] DEG MAGNATOS, AUTOGRAFT, CONTOUR, ARTHROCELL Anesthesia: GETA Surgeon: Amadeo Syed Car Porter #1: Justin Raymundo (WAS PRESENT AND ASSISTED WITH ALL ASPECTS OF THE CASE FROM POSITION TO CLOSURE) Estimated Blood Loss (ml): 300 IV fluids (ml): 2,300 Urine output (ml): 400 Pathology: none sent Condition: stable Disposition: PACU Indications for Procedure: Ms. Greene is presenting for evaluation of mid, low back, and bilateral lower extremity pain. It was my pleasure to have seen and examined Ms. Greene. In our visit today we have had a chance to go over subjective complaints, physical examination findings and treatments including the natural course history without intervention and various interventional options. The patients imaging demonstrates: CT scan completed at [facility] on 12/05/2023 of the Thoracic Spine: there was a review of the patient. This demonstrates the L1-L2 fracture at the bottom of this imaging. There is severe AST secondary to this fracture along with invagination of the cement from the screws into L1. There is instability at this level secondary to this. There is stenosis as well. Overall alignment is compromised secondary to this with kyphosis at this level. No other fractures noted. Osteopenia noted. CT scan completed at [facility] on 12/05/2023 of thw Lumbar Spine: similar findings as above L1-L2 fracture with severe ASD invagination of hardware into L1 with instability kyphosis alignment disturbance. Osteopenia noted as well. No further fractures or lesions otherwise noted. Postsurgical hardware from L2 to pelvis in good position without, complicating process seen On physical exam, Ms. Greene demonstrates: continue progressive back pain. Lower extremity radiculopathy. Severely limited ADLs secondary to pain. Feeling of instability. I have explained to the patient that as their condition progresses it will cause further neurological deficits and eventual paralysis. Based on the patients imaging, physical exam, and the rapid progression and disabling nature of their symptoms, at this time I recommend surgery in the form of a: open treatment of L1-2 fracture with T11 through L2 stabilization and T10 kyphoplasty . I discussed the risk and benefits of this procedure at length with Ms. Greene. The patient agreed to considered pursuing the procedure abovementioned. Prior to surgery, she should follow up with her PCP (Cardio, ID, IM etc) for clearance. Questions were invited and answered, and the patient wishes to proceed as outlined below. Currently, I am recommendin.open treatment of L1-2 fracture with T11 through L2 stabilization and T10 kyphoplasty Description of Procedure: L1 Open treatment fracture above L2-P fusion with PL fusion T10-L2 The patient was seen and examined in the preoperative area. All preoperative protocols were followed. Informed consent was obtained, risks and benefits of the procedure were discussed at length. Risks including bleeding infection damage to the surrounding tissue and risk of reoperation were discussed with the patient. Risk of anesthesia up to and including was discussed with the patient. These are outlined in the risk review. They were willing to accept these risks and all of the risks of surgery. The patient was given a weight- based dose of antibiotics in the form of ANCEF 2 G. The patient was seen and evaluated by the anesthesia team who deemed them fit for surgery. The site was marked, the patient was willing to proceed with the procedure. The patient was transferred to the operative suite by the Department of anesthesia. They were then drifted off to sleep by the department anesthesia and GETA was performed. The patient tolerated this well. [Peterson catheter was placed by nursing staff, atraumatically]. Once confirmation of lines and ventilation t he patient was transferred to a [prone Brown table very carefully]. All bony prominences including wrists, elbows, axilla, chest, hips, and thighs, and feet were padded very well. Special attention was paid to the genitalia and these were padded accordingly. SCDs were placed on bilateral lower extremities and were connected. Arms were well padded and placed [on arm boards up and out in the 90/90 position]. Once in position, again we confirmed good ventilation capabilities and that lines were running appropriately. The patient's Thoracolumbar spine was then exposed. 1010s were placed outlining the incision site. Standard alcohol was used to clean the incision site and allowed to dry. C-arm was used to biomark the patient and confirm level for incision which was marked with a skin marker. Operative briefing was performed with all teams and everyone in agreement to proceed. The patient was then prepped and draped in a normal sterile fashion. Timeout was then performed and all parties were in agreement with the procedure to be performed. Midline skin incision was made over the previously bio-marked area and dissection taken down to the thoracolumbar fascia which was identified and c leaned with a calixto. Midline fasciotomy was made and subperiosteal dissection taken down over the lamina and TP of T10-L3. Hardware was identified at L2-3 and confirmed on AP and Lateral images. Once this was identified, crosslink was removed between L2 and 3 to allow for cross connector dominik to dominik. The area was cleaned to allow for the dominik to be accessed. Then the [employer] navigation tracker was secured to the SP of L1. A 3D Ziehm spin was then taken and registered for screw placement. Once registered, it was confirmed to be accurate; screws were then placed b/l at T10-L1 using [employer] navigation. Navigated tish was used to make a airplane pilot hole followed by a navigated awl tap. Ball tip probe confirmed within the pedicle and a navigated screw show horse driver was then used to place a measured screw accurately. Screws were placed without issues and AP and Lateral images then confirmed their placement to be good. The screws were then tested and all tested >20mA. T12-L2 bilateral laminectomy, complete facetectomy and foraminotomy was then performed. There was instability at L1-2 and so a temporary dominik was placed. Decompression was completed with kerrisons. Once decompression was completed, the disc space was accessed and neural elements protected. Meticulous hemostasis was achieved. An osteotome was then used to access the disc space followed by sequential zoe until good bleeding endplates were achieved. Graft was placed anterior to the cage in the disc space. We then selected a cage and placed this while protecting elements under lateral fluoroscopy. The cage was placed and expanded sequentially while taking fluoro shots. It was taken until it torqued out. There was good height confucianism and the cage was stable. The wound was irrigated. AP and Lateral confirmed cage placement. Then, dominik to dominik connectors were selected and placed between L2 and L3 on the dominik and tightened into place. Rods were then selected, cut and bent appropriately for alignment correction. Top Two screws of the construct in T10 were cemented under lateral fluoro without incident. Rods were then placed into connectors and secured with set screws. They were then sequentially reduced into screw heads up to T10 and set screws placed. All set screws were then finally tightened. PL gutters, facets that remained and TPs were decorticated for PL fusion. AP and Lateral final images confirmed good alignment, fracture reduction and height confucianism as well as stability. IONM remained stable the entire case. The wound was then irrigated with 3L Ancef solution, 3L gentamicin solution and 6L NSS. Surgicel was placed over the dura. Meticulous hemostasis done. Deep drain placed and secured at the skin out a separate incision. 2g Vancomycin powder was placed in the wound. Ventris contour and autograft was then placed in the PL gutters for fusion along with MagnetOs. Closure then ensued. Deep fascia was closed with 1 PDS followed by 1PDS stratafix for water tight closure. Deep sub q was closed with 0 vicryl followed by subdermal 0 PDS strataFIX. Skin was then closed with andreas and wound edges approximated very well. The wound was then cleaned and dressed steril with Opifoam dressing, 4x4 and tegaderm. The patient was then carefully transferred off the bed to their hospital bed, a- traumatically. The drain held suction. The patient was then transferred by the department of anesthesia to PACU in stable condition having tolerated the procedure well with no complications. In PACU, the patient is seen and stable VSS and he is waking up. No following commands yet. They are doing well and will go back to their room on the floor when awake and stable per PACU staff and anesthesia.
[2024-01-02] MEDS ORDERED: NITROGLYCERIN SL TABS 0.4 MG TAB SUBLINGUAL PRN (17:37)
[2024-01-02 17:40] LABS: Glucose,Whole Blood 163 mg/dL (70-110)
[2024-01-02] MEDS: GABAPENTIN 300 MG CAP PO SCH (18:43)
[2024-01-02] MEDS: ACETAMINOPHEN TAB 325 MG TAB PO SCH (18:44)
[2024-01-02] MEDS: HYDROmorphone 1 MG/ML 1 ML SYRINGE IVP PRN (20:03)
[2024-01-02] MEDS: AMITRIPTYLINE HCL 50 MG TAB PO SCH (20:04)
[2024-01-02] MEDS: ATORVASTATIN 20 MG TAB PO SCH (20:04)
[2024-01-02 20:53] LABS: Glucose,Whole Blood 148 mg/dL (70-110)
[2024-01-02] MEDS: HYDROcodone/APAP 10-325MG 1 EACH TAB PO PRN (21:14)
[2024-01-03] MEDS: LEVOTHYROXINE 50 MCG TAB PO SCH (06:27)
[2024-01-03 06:30] LABS: Glucose,Whole Blood 114 mg/dL (70-110)
--- NOTE | 2024-01-03 07:21 | CT ---
EXAMINATION TYPE: CT thor lumbar spine wo con CT DLP: 1410.9 mGycm, Automated exposure control for dose reduction was used. DATE OF EXAM: 01/03/2024 5:36 AM CLINICAL INDICATION:Female, 73 years old with history of s/p T10-L2 stabilization; s/p T10-L2 stabili zation COMPARISON: 12/05/2023 TECHNIQUE: Axial images of the thoracic and lumbar spine were obtained without contrast. Coronal and sagittal reformats were performed. CT Contrast: Contrast used: mL of , none. Oral contrast used: none. FINDINGS: Postsurgical changes to the lumbar spine with fixation hardware at T10 thoracic S1. Discectomy at L1- L2, L2-L3, L3-L4. Hardware limits evaluation at these levels. Hardware appears intact. No evidence of fracture. Vertebroplasty cement in the T10 and L2 vertebral bodies. Drainage catheter terminates in the surgical bed. Bilateral sacral iliac joint screws are present. Postsurgical changes in the soft tissues with foci of gas present. Posterior back skin andreas are pr esent. Scattered colonic diverticula. Atherosclerosis of the arterial vasculature. IMPRESSION: Postsurgical changes without evidence of immediate post operative complication.
--- NOTE | 2024-01-03 07:53 | P.PN ---
Progress Note - Text Progress Note Date: 01/03/[address] evaluated [facility] of alignment and sagittal balance. Screws and hardware in good position. Stable without interval changes. Cemented in good position within the vertebral body no extrusion. No calcaneal processes seen at this time.
[2024-01-03] MEDS: ISOSORBIDE MONONITRATE ER 60 MG TAB.ER.24H PO SCH (08:30)
[2024-01-03] MEDS: LINAGLIPTIN 5 MG TABLET PO SCH (08:30)
[2024-01-03] MEDS: DILTIAZEM CD 180 MG CAP.ER.24H PO SCH (08:30)
[2024-01-03] MEDS: PANTOPRAZOLE 40 MG TABLET PO SCH (08:30)
[2024-01-03] MEDS: lisinopriL 5 MG TAB PO SCH (08:30)
[2024-01-03] MEDS: MULTIVITAMINS, THERA 1 EACH TAB PO SCH (08:30)
[2024-01-03] MEDS: FERROUS SULFATE 325 MG TAB PO SCH (08:30)
[2024-01-03] MEDS: CALCIUM CARB-VIT D 500 MG-5 MCG TAB PO SCH (08:30)
[2024-01-03] MEDS: CHOLECALCIFEROL 25 MCG (1000 IU) TABLET PO SCH (08:30)
[2024-01-03] MEDS: LACTOBACILLUS ACIDOPHILUS/PECT 1 EACH CAPSULE PO SCH (08:30)
[2024-01-03 09:00] LABS: Blood Urea Nitrogen 19.8 mg/dL (9.0-27.0); Calcium 7.8 mg/dL (8.7-10.3); Carbon Dioxide 23.6 mmol/L (21.6-31.8); Chloride 102 mmol/L (96-109); Glucose 111 mg/dL (70-110); Potassium 4.3 mmol/L (3.5-5.5); Sodium 136 mmol/L (135-145)
[2024-01-03] MEDS ORDERED: AMITRIPTYLINE HCL 50 MG TAB PO SCH (09:00)
[2024-01-03 09:30] LABS: Basophils # (A) 0.05 X 10*3/uL (0.00-0.10); Basophils % (A) 0.4 %; Eosinophils # (A) 0.03 X 10*3/uL (0.04-0.35); Eosinophils % (A) 0.2 %; HCT 32.1 % (37.2-46.3); HGB 10.3 g/dL (12.0-15.0); Lymphocytes # (A) 1.75 X 10*3/uL (0.90-5.00); Lymphocytes % (A) 13.7 %; MCH 29.3 pg (27.0-32.0); MCHC 32.1 g/dL (32.0-37.0); MCV 91.5 FL (80.0-97.0); Mean Platelet Volume 11.2 FL (9.5-12.2); Monocytes # (A) 0.77 X 10*3/uL (0.20-1.00); NRBC Per 100 WBC 0 X 10*3/uL (0.00-0.01); Neutrophils # (A) 10.08 X 10*3/uL (1.80-7.70); Neutrophils % (A) 79.3 %; Platelet Count 183 X 10*3/uL (140-440); RBC 3.51 X 10*6/uL (4.10-5.20); WBC 12.73 X 10*3/uL (4.50-10.00)
--- NOTE | 2024-01-03 09:38 | P.PN ---
Subjective Progress Note Date: 01/03/24 Principal diagnosis: Status post T10-L2 posterior stabilization, L1-L2 posterior lateral and interbody fusion Patient was evaluated today at bedside, she is resting comfortably. She states that the pain is controlled with current medication, she does notice some pain in the lower back. She states that the legs are feeling very well at this time. She has not been out of bed yet to test the strength. Her Hemovac is putting out a decent amount of serosanguineous fluid at this time. The urinary catheter remains in place. She denies any headaches, lightheadedness, chest pain or shortness of breath. Objective - Vital Signs Vital signs: Vital Signs Temp 98.3 F 01/03/24 06:50 Pulse 89 01/03/24 06:50 Resp 19 01/03/24 06:50 BP 101/58 01/03/24 06:50 Pulse Ox 91 L 01/03/24 06:50 FiO2 Intake & Output 01/02/24 01/03/24 01/03/24 18:59 06:59 18:59 Intake Total 2 Output Total 850 155 180 Balance 1252 -155 -180 Intake: IV 2101 Output: Drainage 155 180 Back 155 180 Urine 550 Estimated Blood Loss 300 Other: Voiding Method Indwelling Catheter - Exam Gen: AOx3, NAD VSS stable at this time Integument: Postoperative bandage and Hemovac site are clean, dry and intact Palpation: tenderness is appreciated with palpation to the paraspinal region in the lower thoracic and upper lumbar region ROM: Full range of motion in all major muscle groups of the bilateral upper and lower extremities, no focal deficits are appreciated Sensory Exam: Senory exam to light touch is intact C5-T1 Senosry exam to light touch is intact L2-S1 Motor: 5/5 strength appreciated in the bilateral upper extremities with shoulder elevation, shoulder abduction, elbow extension, elbow flexion, wrist extension, wrist flexion, geography head 4/5 strength appreciated in the bilateral lower extremities with hip flexion, knee extension, knee flexion 5/5 strength appreciated bilateral lower extremities with plantarflexion, dorsiflexion, EHL, FHL Reflexes: 2/4 in all UE and LE Negative clonus bilaterally, negative Babinski bilaterally Special Test: Negative straight leg raise bilaterally - Labs CBC & Chem 7: 01/03/24 05:05 02/06/24 05:05 Labs: Abnormal Lab Results - Last 24 Hours (Table) 01/02/24 01/02/24 01/02/24 Range/Units 14:50 17:38 20:46 WBC (4.50-10.00) X 10*3/uL RBC (4.10-5.20) X 10*6/uL Hgb (12.0-15.0) g/dL Hct (37.2-46.3) % Immature Gran # (0.00-0.04) X 10*3/uL Neutrophils # (1.80-7.70) X 10*3/uL Eosinophils # (0.04-0.35) X 10*3/uL Est GFR (CKD-EPI) (>=60) Glucose (70-110) mg/dL POC Glucose (mg/dL) 133 H 163 H 148 H (70-110) mg/dL Calcium (8.7-10.3) mg/dL 01/03/24 01/03/24 01/03/24 Range/Units 05:05 05:05 06:28 WBC 12.73 H (4.50-10.00) X 10*3/uL RBC 3.51 L (4.10-5.20) X 10*6/uL Hgb 10.3 L (12.0-15.0) g/dL Hct 32.1 L (37.2-46.3) % Immature Gran # 0.05 H (0.00-0.04) X 10*3/uL Neutrophils # 10.08 H (1.80-7.70) X 10*3/uL Eosinophils # 0.03 L (0.04-0.35) X 10*3/uL Est GFR (CKD-EPI) 53 L (>=60) Glucose 111 H (70-110) mg/dL POC Glucose (mg/dL) 114 H (70-110) mg/dL Calcium 7.8 L (8.7-10.3) mg/dL Assessment and Plan Assessment: Postoperative day #1 status post T10-L2 posterior stabilization, L1-L2 posterior lateral and interbody fusion History of previous [id number] decompression and fusion Plan: Pain control, please continue with current medications that are scheduled. Please continue use of daily stool softeners DVT prophylaxis, we begin heparin later today. Continue use of compression stockings while in bed Encourage incentive spirometer Okay to leave catheter in place, patient did have retention after her last surgery. Will possibly discontinue late 01/04/2024 versus early 01/05/2024 Monitor Hemovac output, will likely leave in place over the next 24-48 hours Monitor surgical dressing, will change at that time we discontinue Hemovac Weight-bear as tolerated with walker, utilize LSO brace that is at bedside when ambulating PT/OT evaluation Other medical specialty recommendations appreciated Discharge planning: Anticipate discharge to home in the next 72 hours with home health care Time with Patient: Less than 30
[2024-01-03 11:47] LABS: Glucose,Whole Blood 104 mg/dL (70-110)
[2024-01-03 17:28] LABS: Glucose,Whole Blood 128 mg/dL (70-110)
[2024-01-03] MEDS ORDERED: IPRATROPIUM-ALBUTEROL 3 ML NEB INHALATION PRN (19:43)
[2024-01-03] MEDS ORDERED: DEXTROSE 50% SYRINGE 50 ML IVP PRN ×2 (19:44)
--- NOTE | 2024-01-03 19:50 | P.CONS ---
History of Present Illness - Reason for Consult Consult date: 01/03/24 Medical management Requesting physician: Amadeo Syed - Chief Complaint progressive back pain with lower extremity radiculopathy - History of Present Illness This is 73-year-old female with past medical history significant for previous L2-pelvis decompression and fusion, progressive back pain with lower extremity radiculopathy, status post T10-L2 posterior stabilization, L1-L2 posterior lateral and interbody fusion, stop day #1. Tolerated procedure well. Sitting u p in chair. Pain control improving. Blood pressure soft during the night, improving. Afebrile, WBC 12.73. Passing flatus. Denies abdominal pain. maintaining O2 sats in the 90s on 2 L nasal cannula. Minimal ambulation, in room with PT. denies lightheadedness dizziness or focal deficits. Blood sugars controlled. Hemovac with serosanguineous drainage. Review of Systems ROS Statement: Those systems with pertinent positive or pertinent negative responses have been documented in the HPI. ROS Other: All systems not noted in ROS Statement are negative. Past Medical History Past Medical History: Asthma, Coronary Artery Disease (CAD), CVA/TIA, Diabetes Mellitus, GERD/Reflux, Hyperlipidemia, Hypertension, Myocardial Infarction (MD), Musculoskeletal Disorder, Sleep Apnea/CPAP/BIPAP Additional Past Medical History / Comment(s): GLASSES DAILY USE, IGA RESPONSE TRIGGERS ASTHMA, TRIGGER FINGER, LUMBAR DDD, TIA 2012- NO RESIDUAL, USES C-PAP, HX LUMBAR FX-FELL ABOUT 1 YEAR AGO, HX KIDNEY STONES Last Myocardial Infarction Date:: 09/2005 History of Any Multi-Drug Resistant Organisms: None Reported Past Surgical History: Back Surgery, Breast Surgery, Joint Replacement, Ort hopedic Surgery Additional Past Surgical History / Comment(s): LT KNEE ARTHROSCOPY. LT CTR. HX KIDNEY STONE REMOVAL 10/2012, [facility] PAIN [facility]IN[facility] PROCEDURES, BREAST BX LT BREAST-BENIGN, right knee replacement, lithotripsy, BILAT CATARACTS REMOVED WITH LENS IMPLANTS, COLONOSCOPY, SPINAL FUSION, RT SHOULDER REPLACEMENT Past Anesthesia/Blood Transfusion Reactions: No Reported Reaction Additional Past Anesthesia/Blood Transfusion Reaction / Comm: WAS ON A VENT FOR 24 HOURS AFTER LAST SPINAL FUSION. NO HX BLOOD TRANSFUSION Smoking Status: Never smoker - Past Family History Mother Family Medical History: Cancer Additional Family Medical History / Comment(s): FROM THYROID CA, Father Family Medical History: Cancer Additional Family Medical History / Comment(s): FROM STOMACH CA, HX ALCOHOLISM Medications and Allergies Home Medications Medication Instructions Recorded Confirmed Type Meloxicam 7.5 mg PO HS 06/10/14 01/02/24 History dilTIAZem HCL [dilTIAZem HCL 24Hr 360 mg PO DAILY 04/07/16 01/02/24 History ER] Amitriptyline HCl 50 mg PO DAILY 01/29/19 01/02/24 History Atorvastatin [Lipitor] 20 mg PO HS 04/23/20 01/02/24 History Pantoprazole [Protonix] 40 mg PO DAILY 04/23/20 01/02/24 History Levothyroxine Sodium [Synthroid] 50 mcg PO DAILY 11/08/21 01/02/24 History sitaGLIPtin [Januvia] 100 mg PO DAILY 11/08/21 01/02/24 History lisinopriL [Zestril] 5 mg PO DAILY 10/11/22 01/02/24 History L.acidoph,Paracasei, B.lactis 1 tab PO DAILY 10/20/22 01/02/24 History [Probiotic] Calcium Carbonate/Vitamin D3 2 tab PO DAILY 05/05/23 01/02/24 History [Calcium 600 mg-D3 20 mcg (800 unit)] Cholecalciferol [Vitamin D3 (25 25 mcg PO DAILY 05/05/23 01/02/24 History Mcg = 1000 Iu)] Ferrous Sulfate [Iron (65 MG 325 mg PO DAILY 05/05/23 01/02/24 History Elemental)] Multivit with Calcium,Iron,Min 1 tab PO DAILY 05/05/23 01/02/24 History [Women's Multivitamin] Nitroglycerin Sl Tabs [Nitrostat] 0.4 mg SUBLINGUAL Q5M PRN tab 10/19/23 01/02/24 Rx Isosorbide Mononitrate [Isosorbide 60 mg PO DAILY 12/26/23 01/02/24 History Mononitrate ER] Allergies Allergy/AdvReac Type Severity Reaction Status Date / Time levofloxacin [From Levaquin] Allergy Rapid Verified 01/02/24 09:06 Heart Rate Physical Exam Vitals: Vital Signs Temp Pulse Resp BP BP Pulse Ox 01/03/24 13:39 98.7 F 97 19 93/53 91 L 01/03/24 06:50 98.3 F 89 19 101/58 91 L 01/03/24 01:26 88 93/52 01/03/24 00:39 98.6 F 95 14 87/49 76/38 91 L 01/02/24 19:48 97.6 F 93 17 102/60 91 L Intake and Output 01/03/24 01/03/24 01/03/24 06:59 14:59 22:59 Output Total 330 1100 Balance -330 -1100 Output: Drainage 330 Back 330 Urine 1100 Other: Voiding Method Indwelling Catheter PHYSICAL EXAM: VITAL SIGNS: [As above] GENERAL: Alert and oriented x 3, sitting up in chair no acute distress HEENT: Conjunctivae normal. eyes normal. NECK: Supple, no JVD. CARDIOVASCULAR: S1, S2 regular.. No murmur RESPIRATION: Unlabored, equal air entry, breath sounds diminished in the bases. No rhonchi or crackles. ABDOMEN: Soft, nondistended, nontender . No guarding. no masses palpable. Positive bowel sounds LEGS: No edema. no swelling NERVOUS SYSTEM: Cranial N 2-12 grossly normal. Moves all 4 limbs. Skin: Warm and dry, no rash Results CBC & Chem 7: 01/03/24 05:05 01/03/24 05:05 Labs: Abnormal Lab Results - Last 24 Hours (Table) 01/02/24 01/03/24 01/03/24 Range/Units 20:46 05:05 05:05 WBC 12.73 H (4.50-10.00) X 10*3/uL RBC 3.51 L (4.10-5.20) X 10*6/uL Hgb 10.3 L (12.0-15.0) g/dL Hct 32.1 L (37.2-46.3) % Immature Gran # 0.05 H (0.00-0.04) X 10*3/uL Neutrophils # 10.08 H (1.80-7.70) X 10*3/uL Eosinophils # 0.03 L (0.04-0.35) X 10*3/uL Est GFR (CKD-EPI) 53 L (>=60) Glucose 111 H (70-110) mg/dL POC Glucose (mg/dL) 148 H (70-110) mg/dL Calcium 7.8 L (8.7-10.3) mg/dL 01/03/24 01/03/24 Range/Units 06:28 17:27 WBC (4.50-10.00) X 10*3/uL RBC (4.10-5.20) X 10*6/uL Hgb (12.0-15.0) g/dL Hct (37.2-46.3) % Immature Gran # (0.00-0.04) X 10*3/uL Neutrophils # (1.80-7.70) X 10*3/uL Eosinophils # (0.04-0.35) X 10*3/uL Est GFR (CKD-EPI) (>=60) Glucose (70-110) mg/dL POC Glucose (mg/dL) 114 H 128 H (70-110) mg/dL Calcium (8.7-10.3) mg/dL Assessment and Plan Assessment: Progressive back pain with lower extremity radiculopathy, in a patient with history of previous L2-pelvis decompression and fusion,status post T10-L2 posterior stabilization, L1-L2 posterior lateral and interbody fusion. Postoperative atelectasis, expected outcome Chronic asthma, stable Diabetes mellitus Morbid obesity, BMI 32 Hypertension Hyperlipidemia Plan: Continue on current medication regimen, monitoring and symptomatic treatment. Diet adjusted to consistent carb diet with NovoLog sliding scale ad ded to med regimen with close monitoring of Accu-Cheks. Aggressive pulmonary toileting with incentive spirometer reinforced. Nebulized bronchodilators ordered. PT. Pain management, DVT prophylaxis as per primary. Thank you for the consult. The impression and plan of care has been dictated as directed. : I performed a history and examination of this patient, discussed the same with the dictator. I agree with the dictator's note ,documented as a scribe. Any additional findings or plans will be noted.
[2024-01-03] MEDS: IPRATROPIUM-ALBUTEROL 3 ML NEB INHALATION SCH (21:02)
[2024-01-03 21:07] LABS: Glucose,Whole Blood 156 mg/dL (70-110)
[2024-01-03] MEDS: INSULIN ASPART (NovoLOG) 100 UNIT/ML VIAL SQ SCH (21:50)
[2024-01-03] MEDS: HEPARIN SODIUM,PORCINE 5,000 UNIT/ML 1 ML VIAL SQ SCH (21:50)
[2024-01-03] MEDS: CYCLOBENZAPRINE 5 MG TAB PO PRN (21:50)
[2024-01-04 05:57] LABS: Glucose,Whole Blood 108 mg/dL (70-110)
[2024-01-04] MEDS: MAGNESIUM HYDROXIDE 2,400 MG/30 ML CUP PO SCH (09:02)
[2024-01-04] MEDS: SENNOSIDES-DOCUSATE SODIUM 1 EACH TAB PO SCH (09:05)
--- NOTE | 2024-01-04 09:59 | P.PN ---
Subjective Progress Note Date: 01/04/24 Principal diagnosis: Status post T10-L2 posterior stabilization, L1-L2 posterior lateral and interbody fusion Patient was evaluated today at bedside, she is resting comfortably. Patient was able to get to the chair yesterday with physical therapy. The Hemovac has slowed down quite a bit. Urinary catheter remains in place at this time. She states the pain is a little bit better controlled today. She denies any headaches, lightheadedness, chest pain or shortness of breath. Objective - Vital Signs Vital signs: Vital Signs Temp 98.5 F 01/04/24 07:24 Pulse 92 01/04/24 08:41 Resp 16 01/04/24 07:24 BP 92/55 01/04/24 07:24 Pulse Ox 90 L 01/04/24 07:24 FiO2 Intake & Output 01/03/24 01/04/24 01/04/24 18:59 06:59 18:59 Output Total 1430 425 85 Balance -1430 -425 -85 Output: Drainage 330 85 Back 330 85 Urine 1100 425 Other: Voiding Method Indwelling Catheter Indwelling Catheter - Exam Gen: AOx3, NAD VSS stable at this time Integument: Postoperative bandage and Hemovac site are clean, dry and intact Palpation: tenderness is appreciated with palpation to the paraspinal region in the lower thoracic and upper lumbar region ROM: Full range of motion in all major muscle groups of the bilateral upper and lower extremities, no focal deficits are appreciated Sensory Exam: Senory exam to light touch is intact C5-T1 Senosry exam to light touch is intact L2-S1 Motor: 5/5 strength appreciated in the bilateral upper extremities with shoulder elevation, shoulder abduction, elbow extension, elbow flexion, wrist extension, wrist flexion, relationship counselor 4/5 strength appreciated in the bilateral lower extremities with hip flexion, knee extension, knee flexion 5/5 strength appreciated bilateral lower extremities with plantarflexion, dorsiflexion, EHL, FHL Reflexes: 2/4 in all UE and LE Negative clonus bilaterally, negative Babinski bilaterally Special Test: Negative straight leg raise bilaterally - Labs CBC & Chem 7: 01/03/24 05:05 01/03/24 05:05 Labs: Abnormal Lab Results - Last 24 Hours (Table) 01/03/24 01/03/24 01/04/24 Range/Units 17:27 21:04 04:44 POC Glucose (mg/dL) 128 H 156 H (70-110) mg/dL Hemoglobin A1c 6.1 H (<=6.0) % Assessment and Plan Assessment: Postoperative day #2 status post T10-L2 posterior stabilization, L1-L2 posterior lateral and interbody fusion History of previous [id number] decompression and fusion Plan: Pain control, please continue with current medications that are scheduled. Please continue use of daily stool softeners DVT prophylaxis, we begin heparin later today. Continue use of compression stockings while in bed Encourage incentive spirometer Discussed with nursing, they will remove urinary catheter later this afternoon for trial void. Monitor Hemovac, plan for dressing change and likely pulling on 01/05/2024 Weight-bear as tolerated with walker, utilize LSO brace that is at bedside when ambulating PT/OT evaluation Other medical specialty recommendations appreciated Discharge planning: Anticipate discharge to home in the next 48 hours with home health care Time with Patient: Less than 30
[2024-01-04 11:39] LABS: Glucose,Whole Blood 174 mg/dL (70-110)
--- NOTE | 2024-01-04 13:51 | P.PN ---
Subjective Progress Note Date: 01/04/24 01/03/2024 this is 73-year-old female with past medical history significant for previous L2-pelvis decompression and fusion, progressive back pain with lower extremity radiculopathy, status post T10-L2 posterior stabilization, L1-L2 posterior lateral and interbody fusion, stop day #1. Tolerated procedure well. Sitting up in chair. Pain control improving. Blood pressure soft during the night, improving. Afebrile, WBC 12.73. Passing flatus. Denies abdominal pain. maintaining O2 sats in the 90s on 2 L nasal cannula. Minimal ambulation, in room with PT. denies lightheadedness dizziness or focal deficits. Blood sugars controlled. Hemovac with serosanguineous drainage. 01/04/2024 pain better controlled. afebrile. Ambulated further today to her doorway. denies lightheadedness dizziness or focal deficits. Passing flatus, no bowel movement. Blood sugars controlled, A1c 6.1. Maintaining O2 sats in the 90s on 2 L nasal cannula. Blood pressure soft, Imdur and RAUDEL inhibitor held. Afebrile. Decreased Hemovac output. Objective - Vital Signs Vital signs: Vital Signs Temp 98.5 F 01/04/24 07:24 Pulse 92 01/04/24 08:41 Resp 16 01/04/24 10:24 BP 92/55 01/04/24 07:24 Pulse Ox 90 L 01/04/24 07:24 FiO2 Intake & Output 01/03/24 01/04/24 01/04/24 18:59 06:59 18:59 Output Total 1430 425 85 Balance -1430 -425 -85 Output: Drainage 330 85 Back 330 85 Urine 1100 425 Other: Voiding Method Indwelling Catheter Indwelling Catheter Indwelling Catheter - Exam PHYSICAL EXAM: VITAL SIGNS: [As above] GENERAL: Alert and oriented x 3, sitting up in chair no acute distress HEENT: Conjunctivae normal. eyes normal. NECK: Supple, no JVD. CARDIOVASCULAR: S1, S2 regular.No murmur RESPIRATION: Unlabored, equal air entry, breath sounds diminished in the bases. ABDOMEN: Soft, nondistended, nontender . Positive bowel sounds LEGS: No edema. no swelling NERVOUS SYSTEM: Cranial N 2-12 grossly normal. Skin: Warm and dry, no rash. - Labs CBC & Chem 7: 01/03/24 05:05 01/03/24 05:05 Labs: Abnormal Lab Results - Last 24 Hours (Table) 01/03/24 01/03/24 01/04/24 Range/Units 17:27 21:04 04:44 POC Glucose (mg/dL) 128 H 156 H (70-110) mg/dL Hemoglobin A1c 6.1 H (<=6.0) % Assessment and Plan Assessment: Progressive back pain with lower extremity radiculopathy, in a patient with history of previous L2-pelvis decompression and fusion,status post T10-L2 posterior stabilization, L1-L2 posterior lateral and interbody fusion. Postoperative atelectasis, expected outcome Chronic asthma, stable Diabetes mellitus , hemoglobin A1c 6.1 Morbid obesity, BMI 32 Hypertension Hyperlipidemia Plan: Continue on current medication regimen, monitoring and symptomatic treatment. Tight blood sugar control ,close monitoring of Accu-Cheks. Continue aggressive pulmonary toileting with nebulized bronchodilators, incentive spirometer reinforced.PT. Pain management, DVT prophylaxis as per primary. Stool softeners. Discharge planning in progress as per primary. The impression and plan of care has been dictated as directed. : I performed a history and examination of this patient, discussed the same with the dictator. I agree with the dictator's note ,documented as a scribe. Any additional findings or plans will be noted.
[2024-01-04 16:46] LABS: Glucose,Whole Blood 136 mg/dL (70-110)
[2024-01-04 21:26] LABS: Glucose,Whole Blood 121 mg/dL (70-110)
[2024-01-05 05:44] LABS: Glucose,Whole Blood 102 mg/dL (70-110)
[2024-01-05 11:42] LABS: Basophils # (A) 0.04 X 10*3/uL (0.00-0.10); Basophils % (A) 0.5 %; Eosinophils % (A) 3.4 %; HCT 31.1 % (37.2-46.3); HGB 9.9 g/dL (12.0-15.0); Lymphocytes # (A) 1.47 X 10*3/uL (0.90-5.00); Lymphocytes % (A) 16.8 %; MCH 28.7 pg (27.0-32.0); MCHC 31.8 g/dL (32.0-37.0); MCV 90.1 FL (80.0-97.0); Mean Platelet Volume 10.9 FL (9.5-12.2); Monocytes % (A) 6.9 %; NRBC Per 100 WBC 0 X 10*3/uL (0.00-0.01); Neutrophils # (A) 6.29 X 10*3/uL (1.80-7.70); Neutrophils % (A) 71.9 %; Platelet Count 172 X 10*3/uL (140-440); RBC 3.45 X 10*6/uL (4.10-5.20); WBC 8.74 X 10*3/uL (4.50-10.00)
[2024-01-05 11:54] LABS: Glucose,Whole Blood 131 mg/dL (70-110)
[2024-01-05 12:02] LABS: Blood Urea Nitrogen 10.4 mg/dL (9.0-27.0); Calcium 8.8 mg/dL (8.7-10.3); Carbon Dioxide 27.5 mmol/L (21.6-31.8); Chloride 103 mmol/L (96-109); Glucose 106 mg/dL (70-110); Potassium 4.3 mmol/L (3.5-5.5); Sodium 138 mmol/L (135-145)
--- NOTE | 2024-01-05 13:42 | P.PN ---
Subjective Progress Note Date: 01/05/24 01/03/2024 this is 73-year-old female with past medical history significant for previous L2-pelvis decompression and fusion, progressive back pain with lower extremity radiculopathy, status post T10-L2 posterior stabilization, L1-L2 posterior lateral and interbody fusion, stop day #1. Tolerated procedure well. Sitting up in chair. Pain control improving. Blood pressure soft during the night, improving. Afebrile, WBC 12.73. Passing flatus. Denies abdominal pain. maintaining O2 sats in the 90s on 2 L nasal cannula. Minimal ambulation, in room with PT. denies lightheadedness dizziness or focal deficits. Blood sugars controlled. Hemovac with serosanguineous drainage. 01/04/2024 pain better controlled. afebrile. Ambulated further today to her doorway. denies lightheadedness dizziness or focal deficits. Passing flatus, no bowel movement. Blood sugars controlled, A1c 6.1. Maintaining O2 sats in the 90s on 2 L nasal cannula. Blood pressure soft, Imdur and RAUDEL inhibitor held. Afebrile. Decreased Hemovac output. 01/05/2024 Tmax 100, maintaining O2 sats in the 90s on room air. Labs pending. Better pain management. Denies chest pain, palpitations or shortness of breath. Ambulating to the nurses desk, denies lightheadedness, dizziness or focal deficits. Blood sugars controlled. Objective - Vital Signs Vital signs: Vital Signs Temp 98.7 F 01/05/24 07:17 Pulse 98 01/05/24 10:55 Resp 19 01/05/24 07:17 BP 104/65 01/05/24 10:55 Pulse Ox 91 L 01/05/24 07:17 FiO2 Intake & Output 01/04/24 01/05/24 01/05/24 18:59 06:59 18:59 Intake Total 500 240 Output Total 1505 1415 Balance -1005 -1415 240 Intake: Oral 500 240 Output: Drainage 255 90 Back 255 90 Urine 1250 1325 Straight 1325 Other: Voiding Method Indwelling Catheter # Voids 2 - Exam PHYSICAL EXAM: VITAL SIGNS: [As above] GENERAL: Alert and oriented x 3, sitting up in chair no acute distress HEENT: Conjunctivae normal. eyes normal. NECK: Supple, no JVD. CARDIOVASCULAR: S1, S2 regular.No murmur RESPIRATION: Unlabored, equal air entry, breath sounds diminished in the bases. ABDOMEN: Soft, nondistended, nontender . Positive bowel sounds LEGS: No edema. no swelling NERVOUS SYSTEM: Cranial N 2-12 grossly normal. Skin: Warm and dry, no rash. - Labs CBC & Chem 7: 01/05/24 07:05 01/05/24 07:05 Labs: Abnormal Lab Results - Last 24 Hours (Table) 01/04/24 01/04/24 01/04/24 Range/Units 11:38 16:44 21:24 POC Glucose (mg/dL) 174 H 136 H 121 H (70-110) mg/dL Assessment and Plan Assessment: Progressive back pain with lower extremity radiculopathy, in a patient with history of previous L2-pelvis decompression and fusion,status post T10-L2 posterior stabilization, L1-L2 posterior lateral and interbody fusion. Postoperative atelectasis, expected outcome Chronic asthma, stable Diabetes mellitus , hemoglobin A1c 6.1 Morbid obesity, BMI 32 Hypertension Hyperlipidemia Plan: Continue on current medication regimen, monitoring and symptomatic treatment. Aggressive pulmonary toileting with nebulized bronchodilators in place, incentive spirometer reinforced and Symbicort added to med regimen .Maintain tight blood sugar control ,close monitoring of Accu-Cheks. PT. increase ambulation as tolerated. pain management, DVT prophylaxis as per primary. Discharge planning in progress as per primary. The impression and plan of care has been dictated as directed. : I performed a history and examination of this patient, discussed the same with the dictator. I agree with the dictator's note ,documented as a scribe. Any additional findings or plans will be noted.
--- NOTE | 2024-01-05 13:56 | P.PN ---
Subjective Progress Note Date: 01/05/24 Principal diagnosis: Status post T10-L2 posterior stabilization, L1-L2 posterior lateral and interbody fusion Patient was evaluated today at bedside, she is resting comfortably. Patient is feeling a lot better today. She did ambulate in the [place] today with physical therapy. Urinary catheter had to be placed due to retention. She denies any headaches, lightheadedness, chest pain or shortness of breath. Objective - Vital Signs Vital signs: Vital Signs Temp 98.7 F 01/05/24 07:17 Pulse 84 01/05/24 11:20 Resp 19 01/05/24 07:17 BP 104/65 01/05/24 10:55 Pulse Ox 91 L 01/05/24 07:17 FiO2 Intake & Output 01/04/24 01/05/24 01/05/24 18:59 06:59 18:59 Intake Total 500 240 Output Total 1505 1415 375 Balance -1005 -1415 -135 Intake: Oral 500 240 Output: Drainage 255 90 Back 255 90 Urine 1250 1325 375 Straight 1325 375 Other: Voiding Method Indwelling Catheter # Voids 2 - Exam Gen: AOx3, NAD VSS stable at this time Integument: Postop bandage and Hemovac drain were removed, andreas are all in good position and condition. Palpation: tenderness is appreciated with palpation to the paraspinal region in the lower thoracic and upper lumbar region ROM: Full range of motion in all major muscle groups of the bilateral upper and lower extremities, no focal deficits are appreciated Sensory Exam: Senory exam to light touch is intact C5-T1 Senosry exam to light touch is intact L2-S1 Motor: 5/5 strength appreciated in the bilateral upper extremities with shoulder elevation, shoulder abduction, elbow extension, elbow flexion, wrist extension, wrist flexion, e tailer 4/5 strength appreciated in the bilateral lower extremities with hip flexion, knee extension, knee flexion 5/5 strength appreciated bilateral lower extremities with plantarflexion, dorsiflexion, EHL, FHL Reflexes: 2/4 in all UE and LE Negative clonus bilaterally, negative Babinski bilaterally Special Test: Negative straight leg raise bilaterally - Labs CBC & Chem 7: 01/05/24 07:05 01/05/24 07:05 Labs: Abnormal Lab Results - Last 24 Hours (Table) 01/04/24 01/04/24 01/05/24 Range/Units 16:44 21:24 07:05 RBC 3.45 L (4.10-5.20) X 10*6/uL Hgb 9.9 L (12.0-15.0) g/dL Hct 31.1 L (37.2-46.3) % MCHC 31.8 L (32.0-37.0) g/dL POC Glucose (mg/dL) 136 H 121 H (70-110) mg/dL 01/05/24 Range/Units 11:53 RBC (4.10-5.20) X 10*6/uL Hgb (12.0-15.0) g/dL Hct (37.2-46.3) % MCHC (32.0-37.0) g/dL POC Glucose (mg/dL) 131 H (70-110) mg/dL Assessment and Plan Assessment: Postoperative day #3 status post T10-L2 posterior stabilization, L1-L2 posterior lateral and interbody fusion History of previous [id number] decompression and fusion Plan: Pain control, please continue with current medications that are scheduled. Please continue use of daily stool softeners DVT prophylaxis, continue subcu medication. Continue use of compression stockings while in bed Encourage incentive spirometer Maintain urinary catheter, plan for follow-up with urology in the outpatient setting for catheter management Continue to monitor surgical dressing Weight-bear as tolerated with walker, utilize LSO brace that is at bedside when ambulating PT/OT evaluation Other medical specialty recommendations appreciated Discharge planning: Plan for discharge to home with home health care on 01/06/2024 Time with Patient: Less than 30
[2024-01-05] MEDS: SYMBICORT 80-4.5 MCG INHALER INHALATION SCH (15:49)
[2024-01-05 17:02] LABS: Glucose,Whole Blood 139 mg/dL (70-110)
[2024-01-05 21:01] LABS: Glucose,Whole Blood 109 mg/dL (70-110)
[2024-01-06] MEDS: HYDROcodone/APAP 5-325MG 1 EACH TAB PO PRN (02:04)
[2024-01-06 05:51] LABS: Glucose,Whole Blood 110 mg/dL (70-110)
--- NOTE | 2024-01-06 08:41 | P.DS ---
Providers Date of admission: 01/02/24 08:21 Expected date of discharge: 01/06/24 Attending physician: Amadeo Syed DO Consults: 01/02/24 14:37 Consult Physician Routine Consulting Provider: Richard Tinoco Reason/Comments: Medical Management s/p T10-L2 stabilization Do you want consulting provider notified?: Yes Primary care physician: Richard Tinoco Hospital Course: Date of admission: 01/02/2024 Date of discharge: 01/06/2024 Admission diagnosis: 1. L1-2 Fracture with instability, spondylosis, severe and stenosis 2. s/p L2-Pelvis decompression and fusion 3. s/p multiple FFS 4. LE radiculopathy 5. LE weakness 6. Complex medical patient Discharge diagnosis: Same Attending physician: Dr. Syed Surgical procedures: 1. L1-2 OPEN TREATMENT FRACTURE WITH REDUCTION AND STABILIZATION 2. L1-2 POSTEROLATERAL AND INTERBODY FUSION 3. T10-L2 INSTRUMENTATION Brief history: Patient is a 73-year-old female with a history of L1-2 fracture instability spondylosis severe stenosis; status post [id number] decompression fusion; lower extremity radiculopathy; lower extremity weakness. At this point patient has failed conservative treatment measures and has opted to proceed with a elective L1-2 open treatment fracture with reduction and stabilization; I'll 12 posterior lateral and interbody fusion; T10-L2 instrumentation. Hospital course: Details of patient's surgery can be found in operative report. Patient tolerated the procedure well and was subsequently transported to orthopedic floor. Patient's orthopeidc and medical care was provided daily. Patient had daily laboratory tests performed for evaluation of overall blood counts. Patient had daily physical therapy to include strengthening range of motion as well as education with walker ambulation. Patient was treated with Heparin for their postoperative DVT prophylaxis during their inpatient stay. Patient was noted to have a relatively uneventful postoperative course. Patient reported satisfactory pain control with oral pain medications by postoperative day 4. Patient showed satisfactory progress with physical therapy. Patient moved steadily through the program and had no difficulty meeting the goals by postoperative day 4. Given patient's otherwise satisfactory course and having met physical therapy goals, plan is to discharge patient home on postoperative day 4. Discharge condition/disposition: Patient will be discharged home in stable condition. Discharge medications: Instructions are given on resumption of patient's normal daily medications per primary care recommendation, in addition patient will be prescribed [place]; Flexeril; gabapentin; Duricef; senna. Spine Discharge and Recovery Instructions Date of Surgery: 01/02/2024 Diagnosis: 1. L1-2 Fracture with instability, spondylosis, severe and stenosis 2. s/p L2-Pelvis decompression and fusion 3. s/p multiple FFS 4. LE radiculopathy 5. LE weakness 6. Complex medical patient Procedure(s) Performed: 1. L1-2 OPEN TREATMENT FRACTURE WITH REDUCTION AND STABILIZATION 2. L1-2 POSTEROLATERAL AND INTERBODY FUSION 3. T10-L2 INSTRUMENTATION Medications: See medication list All medication refills should be obtained through your primary care doctor or your clinic spine surgeon. Please discuss prescription refills at your follow up appointment. Do not call the hospital for medication refills. Dressing: Leave your dressing in place for a total of 5 days post operatively. Then you may remove your dressing and leave open to air. Keep the area clean and if not able to keep area clean, then cover with sterile gauze and tape. Showering: You may shower 3 days after your procedure allowing soap and water to run over incision. Do not scrub. Do not soak. Blot dry. Follow up: Please confirm a follow up appointment with your surgeon 3 weeks post operatively. Please make an appointment to follow up with your PCP in 1-2 weeks after surgery for evaluation 3 phase, 3-week plan POST OP WEEKS 1-3 1. Lifting/carrying/pushing/pulling limited to less than 5 pounds. 2. Do not sit for longer than 15 minutes at one time. Get up and walk around. Prolonged sitting is NOT advised. If you lay down, see if you can tolerate laying down on you front (belly side) 3. Walk for periods of 15 minutes = 1 mile but no longer; do it multiple times times each day. 4. Ice your low back after activity. POST OP WEEKS 3-6 1. Lifting limited to less than 20 pounds. 2. Do not sit for longer than 30 minutes at a time. Frequently change positions. Use a sit-to stand workstation or take frequent breaks from sitting if you have returned to work. 3. Walk for 30 minutes each day. If possible, do these three or more times a day POST OP WEEKS 6+ At your 6-week appointment we will give you a physical therapy referral to focus on a core stabilization and strengthening program. You should also work on leg & buttock strengthening, hamstring & quadriceps stretching, and continue a low impact aerobic activity program such as swimming, walking, or riding a stationary bicycle. During the initial 6 weeks after your surgery, you are at the highest risk of re-injuring your spine. You should generally avoid BLTs (bending, lifting and twisting combination motions) and follow the above guidelines to reduce the chance of reinjury. You can anticipate post op appointments in our office at approximately 3 weeks and 6 weeks after your surgery. INCISION CARE: If your incision is not draining you do NOT need to cover it with a dressing. Keep your incision clean, dry and intact. In most cases, we apply skin glue, andreas or sutures to the incision at the time of surgery. This will be like a crust or have the appearance of a scab and will fall off in time on its own. The stitches or andreas need to be removed at 3 weeks post op appointment. You may begin to shower 3 days after surgery (this allows the glue to ruiz well). However, please avoid scrubbing the incision site or peeling off any of the skin glue. This will ensure optimal healing of your incision. Also, during this time avoid soaking the incision area in water - this includes swimming pools, hot tubs or baths. No ointments, lotions or oils on the incision until your surgeon allows. Leave andreas, sutures or glue in place. Neurological dysfunction that comes on suddenly can also be a sign of a stroke. Below some common symptoms of a stroke are listed: B - balance difficulty such as sudden onset walking or leaning to one side - NEW E - eye problem such as sudden double vision or trouble seeing on one side - NEW F - Facial weakness or numbness on one side - NEW A - Arm or leg weakness or numbness on one side - NEW S - Slurred speech or difficulty with word finding - NEW T - Time is BRAIN! Call 911 as soon as you recognize these symptoms Diet: Consume a regular diet rich in vegetables and lean protein such as chicken or fish. You should consume in a ratio of approximately 20% fats|40% carbohydrates|40%protein. Vegetables, sweet potatoes, brown rice or quinoa are examples of good carbohydrates. Chips, white bread, cookies and sweets/sugar are examples of bad carbohydrates. Limit your bad carbs, go wild with good carbs. "Life's Simple 7" Guidelines as per [place] [employer] These will help you reclaim your life after surgery and boring machine operator helper in your recovery, keeping in mind your restrictions. (1) Get Active. Physical activity can help people lose weight, control high blood pressure and cholesterol, feel emotionally better, and sleep better. (2) Control Cholesterol. Avoid a diet high in saturated fat, trans fat, & cholesterol. Limit whole milk & cream, ice cream, butter, egg yolks, processed meats (like sausage and hot dogs), and fatty meats. Choose healthy foods that are low in saturated fat, trans fat and cholesterol which include: Fruits and vegetables, fiber rich grain products (like whole grain pasta and brown rice), lean meat such as chicken, fish, nuts, seeds, and legumes. (3) Eat Better. Eat small portions. Shop at the grocery with a list and do not stray from it. Tips for a healthy diet include: Limit sodium intake to less than 1500mg daily, avoid prepackaged, processed, and fast foods, choose a diet rich in fruits, vegetables, and whole grain, high fiber foods, and limit saturated & cholesterol in your diet. (4) Manage Blood Pressure. If you have high blood pressure, you should have a cuff at home so that you can check your blood pressure regularly. Be sure you have a good cuff. An arm one is generally better than a wrist one. Bring the cuff to a doctor's appointment to validate that the measurements that your cuff are taking are accurate. Take your blood pressure twice daily when you are sitting down and relaxing. Record the numbers in a log and bring this log with you to your doctors' appointments. (5) Lose Weight if your BMI is above 25. A healthy BMI is between 19-25. To calculate Your BMI, you may use a Standard BMI Calculator on the NIH BMI website: <www.nhlbi.nih.gov/guidelines/obesity/BMI/bmicalc.htm>. Weigh oneself daily. If you are overweight, set a goal to lose weight. A pound a week loss if needed is a good target. (6) Reduce Blood Sugar. Limit foods and liquids with "added sugars." (Added sugars include sucrose, fructose, glucose, maltose, dextrose, high fructose corn syrup, corn syrup, concentrated fruit juice and honey). (7) Stop Smoking. If you smoke, quitting smoking is one of the best things that you can do for your health. Smoking increases your risk of heart attack, stroke, and peripheral vascular disease, which is a build-up of plaque in your arteries. Please discard all the cigarettes and lighters in your house. Have a plan for what you will do when you have the urge to smoke. Direct and second- hand smoke shortens your life as well as the lives of your family, friends and others around you. For your health and the health of those around you, please consider quitting! Proper Bending Body Mechanics: Maintain a wide stance with one foot slightly in front of the other. Keep your back straight. Bend utilizing the strength in your hips and knees. Do not bend at the waist. Maintain the lifted object at your waist-level close to your body. Avoid lifting weight that causes immediately pain or pain anywhere in the body afterwards. Smoking/Nicotine If there was ever one thing that you could do to increase your overall health, decrease your risk of cardiovascular problems by about 39% the second you make the choice, it is to STOP SMOKING. Your body's most instant gratification is the second you stop smoking. We have all heard the studies, read the articles but it is true, smoking is extremely bad for your overall health, and moreover it is detrimental to your bone health. Nicotine, IN ANY FORM, kills bone cells, prevents your body from healing fractures, and significantly prolongs healing after surgery. In spine surgery specifically, it increases your risk of not healing your bones to create a fusion and increases your risk of having a revision surgery due to this up to 60%. I know it is hard. I know it feels impossible. But there are ways. Take control of your life. We are here to help you through it. And when you are ready, ask us and we can direct you to help if you desire. Use the START Plan to Quit Smoking (please visit the Helpguide.org website listed below for more information): S = Set a quit date. Choose a date within the next 2 weeks, so you have enough time to prepare without losing your motivation to quit. If you mainly smoke at work, quit on the weekend, so you have a few days to adjust to the change. T = Tell family, friends, and co-workers that you plan to quit. Let your friends and family in on your plan to quit smoking and tell them you need their support and encouragement to stop. Look for a quit donato who wants to stop smoking as well. You can help each other get through the rough times. A = Anticipate and plan for the challenges you'll face while quitting. Most people who begin smoking again do so within the first 3 months. You can help yourself make it through by preparing ahead for common challenges, such as nicotine withdrawal and cigarette cravings. R = Remove cigarettes and other tobacco products from your home, car, and work. Throw away all your cigarettes (no emergency pack!), lighters, ashtrays, and matches. Wash your clothes and freshen up anything that smells like smoke. Shampoo your car, clean your drapes and carpet, and steam your furniture. T = Talk to your doctor about getting help to quit. Your doctor can prescribe medication to help with withdrawal and suggest other alternatives. If you can't see a doctor, you can get many products over the counter at your local pharmacy or grocery store, including the nicotine patch, nicotine lozenges, and nicotine gum. Resources for Quitting Smoking: <https://www.[place].gov/documents/[facility]/Quit_Tobacco_Resources_for_patients_313 480_7.pdf> Supplementation: Take recommended dosages of Vitamin D and Calcium to help fortify your bones and help them to heal. See your health maintenance packet for dosages and recommended levels. DVT/VTE prophylaxis: You will be given compression stockings from the hospital. Wear these daily for the first two weeks after surgery. You may take them off at night. You may be prescribed a medication to help thin your blood. Take this as directed. If you are not prescribed this medication, early and frequent ambulation has been shown to be the best prophylaxis to deep vein thrombosis and sequelae related to this event. Assessment: 1. L1-2 Fracture with instability, spondylosis, severe and stenosis 2. s/p L2-Pelvis decompression and fusion 3. s/p multiple FFS 4. LE radiculopathy 5. LE weakness 6. Complex medical patient Procedures: 1. L1-2 OPEN TREATMENT FRACTURE WITH REDUCTION AND STABILIZATION 2. L1-2 POSTEROLATERAL AND INTERBODY FUSION 3. T10-L2 INSTRUMENTATION Patient Condition at Discharge: Good Plan - Discharge Summary Discharge Rx Participant: Yes New Discharge Prescriptions: New Cyclobenzaprine [Flexeril] 5 mg PO TID #21 tablet Sennosides/Docusate Sodium [Senna Plus 8.6-50 mg Softgel] 1 each PO DAILY #20 capsule Gabapentin 300 mg PO TID #30 cap cefaDROXiL [Duricef] 500 mg PO Q12HR #10 cap HYDROcodone/APAP 7.5-325MG [[place] 7.5-325] 1 tab PO Q6HR PRN #28 tab PRN Reason: Pain No Action Meloxicam 7.5 mg PO HS dilTIAZem HCL [dilTIAZem HCL 24Hr ER] 360 mg PO DAILY Amitriptyline HCl 50 mg PO DAILY Atorvastatin [Lipitor] 20 mg PO HS Pantoprazole [Protonix] 40 mg PO DAILY lisinopriL [Zestril] 5 mg PO DAILY L.acidoph,Paracasei, B.lactis [Probiotic] 1 tab PO DAILY Multivit with Calcium,Iron,Min [Women's Multivitamin] 1 tab PO DAILY Ferrous Sulfate [Iron (65 MG Elemental)] 325 mg PO DAILY Calcium Carbonate/Vitamin D3 [Calcium 600 mg-D3 20 mcg (800 unit)] 2 tab PO DAILY Nitroglycerin Sl Tabs [Nitrostat] 0.4 mg SUBLINGUAL Q5M PRN tab PRN Reason: Chest Pain Isosorbide Mononitrate [Isosorbide Mononitrate ER] 60 mg PO DAILY sitaGLIPtin [Januvia] 100 mg PO DAILY Levothyroxine Sodium [Synthroid] 50 mcg PO DAILY Cholecalciferol [Vitamin D3 (25 Mcg = 1000 Iu)] 25 mcg PO DAILY Discharge Medication List Meloxicam 7.5 mg PO HS 06/10/14 [History] dilTIAZem HCL [dilTIAZem HCL 24Hr ER] 360 mg PO DAILY 04/07/16 [History] Amitriptyline HCl 50 mg PO DAILY 01/29/19 [History] Atorvastatin [Lipitor] 20 mg PO HS 04/23/20 [History] Pantoprazole [Protonix] 40 mg PO DAILY 04/23/20 [History] Levothyroxine Sodium [Synthroid] 50 mcg PO DAILY 11/08/21 [History] sitaGLIPtin [Januvia] 100 mg PO DAILY 11/08/21 [History] lisinopriL [Zestril] 5 mg PO DAILY 10/11/22 [History] L.acidoph,Paracasei, B.lactis [Probiotic] 1 tab PO DAILY 10/20/22 [History] Calcium Carbonate/Vitamin D3 [Calcium 600 mg-D3 20 mcg (800 unit)] 2 tab PO DAILY 05/05/23 [History] Cholecalciferol [Vitamin D3 (25 Mcg = 1000 Iu)] 25 mcg PO DAILY 05/05/23 [History] Ferrous Sulfate [Iron (65 MG Elemental)] 325 mg PO DAILY 05/05/23 [History] Multivit with Calcium,Iron,Min [Women's Multivitamin] 1 tab PO DAILY 05/05/23 [History] Nitroglycerin Sl Tabs [Nitrostat] 0.4 mg SUBLINGUAL Q5M PRN tab 10/19/23 [Rx] Isosorbide Mononitrate [Isosorbide Mononitrate ER] 60 mg PO DAILY 12/26/23 [History] Cyclobenzaprine [Flexeril] 5 mg PO TID #21 tablet 01/06/24 [Rx] Gabapentin 300 mg PO TID #30 cap 01/06/24 [Rx] HYDROcodone/APAP 7.5-325MG [[place] 7.5-325] 1 tab PO Q6HR PRN #28 tab 01/06/24 [Rx] Sennosides/Docusate Sodium [Senna Plus 8.6-50 mg Softgel] 1 each PO DAILY #20 capsule 01/06/24 [Rx] cefaDROXiL [Duricef] 500 mg PO Q12HR #10 cap 01/06/24 [Rx] Follow up Appointment(s)/Referral(s): [facility], [NON-STAFF] - As Needed [facility] [NON-STAFF] - As Needed (heather) Amadeo Syed DO [Doctor of Osteopathic Medicine] - 01/16/24 8:30 am Hiram Cevallos MD [STAFF PHYSICIAN] - 3 Days Activity/Diet/Wound Care/Special Instructions: Date of Surgery: 01/02/2024 Diagnosis: 1. L1-2 Fracture with instability, spondylosis, severe and stenosis 2. s/p L2-Pelvis decompression and fusion 3. s/p multiple FFS 4. LE radiculopathy 5. LE weakness 6. Complex medical patient Procedure(s) Performed: 1. L1-2 OPEN TREATMENT FRACTURE WITH REDUCTION AND STABILIZATION 2. L1-2 POSTEROLATERAL AND INTERBODY FUSION 3. T10-L2 INSTRUMENTATION Medications: See medication list All medication refills should be obtained through your primary care doctor or your clinic spine surgeon. Please discuss prescription refills at your follow up appointment. Do not call the hospital for medication refills. Dressing: Leave your dressing in place for a total of 5 days post operatively. Then you may remove your dressing and leave open to air. Keep the area clean and if not able to keep area clean, then cover with sterile gauze and tape. Showering: You may shower 3 days after your procedure allowing soap and water to run over incision. Do not scrub. Do not soak. Blot dry. Follow up: Please confirm a follow up appointment with your surgeon 3 weeks post operatively. Please make an appointment to follow up with your PCP in 1-2 weeks after surgery for evaluation 3 phase, 3-week plan POST OP WEEKS 1-3 1. Lifting/carrying/pushing/pulling limited to less than 5 pounds. 2. Do not sit for longer than 15 minutes at one time. Get up and walk around. Prolonged sitting is NOT advised. If you lay down, see if you can tolerate laying down on you front (belly side) 3. Walk for periods of 15 minutes = 1 mile but no longer; do it multiple times times each day. 4. Ice your low back after activity. POST OP WEEKS 3-6 1. Lifting limited to less than 20 pounds. 2. Do not sit for longer than 30 minutes at a time. Frequently change positions. Use a sit-to stand workstation or take frequent breaks from sitting if you have returned to work. 3. Walk for 30 minutes each day. If possible, do these three or more times a day POST OP WEEKS 6+ At your 6-week appointment we will give you a physical therapy referral to focus on a core stabilization and strengthening program. You should also work on leg & buttock strengthening, hamstring & quadriceps stretching, and continue a low impact aerobic activity program such as swimming, walking, or riding a stationary bicycle. During the initial 6 weeks after your surgery, you are at the highest risk of re-injuring your spine. You should generally avoid BLTs (bending, lifting and twisting combination motions) and follow the above guidelines to reduce the chance of reinjury. You can anticipate post op appointments in our office at approximately 3 weeks and 6 weeks after your surgery. INCISION CARE: If your incision is not draining you do NOT need to cover it with a dressing. Keep your incision clean, dry and intact. In most cases, we apply skin glue, andreas or sutures to the incision at the time of surgery. This will be like a crust or have the appearance of a scab and will fall off in time on its own. The stitches or andreas need to be removed at 3 weeks post op appointment. You may begin to shower 3 days after surgery (this allows the glue to ruiz well). However, please avoid scrubbing the incision site or peeling off any of the skin glue. This will ensure optimal healing of your incision. Also, during this time avoid soaking the incision area in water - this includes swimming pools, hot tubs or baths. No ointments, lotions or oils on the incision until your surgeon allows. Leave andreas, sutures or glue in place. Neurological dysfunction that comes on suddenly can also be a sign of a stroke. Below some common symptoms of a stroke are listed: B - balance difficulty such as sudden onset walking or leaning to one side - NEW E - eye problem such as sudden double vision or trouble seeing on one side - NEW F - Facial weakness or numbness on one side - NEW A - Arm or leg weakness or numbness on one side - NEW S - Slurred speech or difficulty with word finding - NEW T - Time is BRAIN! Call 911 as soon as you recognize these symptoms Diet: Consume a regular diet rich in vegetables and lean protein such as chicken or fish. You should consume in a ratio of approximately 20% fats|40% carbohydrates|40%protein. Vegetables, sweet potatoes, brown rice or quinoa are examples of good carbohydrates. Chips, white bread, cookies and sweets/sugar are examples of bad carbohydrates. Limit your bad carbs, go wild with good carbs. "Life's Simple 7" Guidelines as per [place] [employer] These will help you reclaim your life after surgery and boring machine operator helper in your recovery, keeping in mind your restrictions. (1) Get Active. Physical activity can help people lose weight, control high blood pressure and cholesterol, feel emotionally better, and sleep better. (2) Control Cholesterol. Avoid a diet high in saturated fat, trans fat, & cholesterol. Limit whole milk & cream, ice cream, butter, egg yolks, processed meats (like sausage and hot dogs), and fatty meats. Choose healthy foods that are low in saturated fat, trans fat and cholesterol which include: Fruits and vegetables, fiber rich grain products (like whole grain pasta and brown rice), lean meat such as chicken, fish, nuts, seeds, and legumes. (3) Eat Better. Eat small portions. Shop at the grocery with a list and do not stray from it. Tips for a healthy diet include: Limit sodium intake to less than 1500mg daily, avoid prepackaged, processed, and fast foods, choose a diet rich in fruits, vegetables, and whole grain, high fiber foods, and limit saturated & cholesterol in your diet. (4) Manage Blood Pressure. If you have high blood pressure, you should have a cuff at home so that you can check your blood pressure regularly. Be sure you have a good cuff. An arm one is generally better than a wrist one. Bring the cuff to a doctor's appointment to validate that the measurements that your cuff are taking are accurate. Take your blood pressure twice daily when you are sitting down and relaxing. Record the numbers in a log and bring this log with you to your doctors' appointments. (5) Lose Weight if your BMI is above 25. A healthy BMI is between 19-25. To calculate Your BMI, you may use a Standard BMI Calculator on the NIH BMI website: <www.nhlbi.nih.gov/guidelines/obesity/BMI/bmicalc.htm>. Weigh oneself daily. If you are overweight, set a goal to lose weight. A pound a week loss if needed is a good target. (6) Reduce Blood Sugar. Limit foods and liquids with "added sugars." (Added sugars include sucrose, fructose, glucose, maltose, dextrose, high fructose corn syrup, corn syrup, concentrated fruit juice and honey). (7) Stop Smoking. If you smoke, quitting smoking is one of the best things that you can do for your health. Smoking increases your risk of heart attack, stroke, and peripheral vascular disease, which is a build-up of plaque in your arteries. Please discard all the cigarettes and lighters in your house. Have a plan for what you will do when you have the urge to smoke. Direct and second- hand smoke shortens your life as well as the lives of your family, friends and others around you. For your health and the health of those around you, please consider quitting! Proper Bending Body Mechanics: Maintain a wide stance with one foot slightly in front of the other. Keep your back straight. Bend utilizing the strength in your hips and knees. Do not bend at the waist. Maintain the lifted object at your waist-level close to your body. Avoid lifting weight that causes immediately pain or pain anywhere in the body afterwards. Smoking/Nicotine If there was ever one thing that you could do to increase your overall health, decrease your risk of cardiovascular problems by about 39% the second you make the choice, it is to STOP SMOKING. Your body's most instant gratification is the second you stop smoking. We have all heard the studies, read the articles but it is true, smoking is extremely bad for your overall health, and moreover it is detrimental to your bone health. Nicotine, IN ANY FORM, kills bone cells, prevents your body from healing fractures, and significantly prolongs healing after surgery. In spine surgery specifically, it increases your risk of not healing your bones to create a fusion and increases your risk of having a revision surgery due to this up to 60%. I know it is hard. I know it feels impossible. But there are ways. Take control of your life. We are here to help you through it. And when you are ready, ask us and we can direct you to help if you desire. Use the START Plan to Quit Smoking (please visit the Helpguide.org website listed below for more information): S = Set a quit date. Choose a date within the next 2 weeks, so you have enough time to prepare without losing your motivation to quit. If you mainly smoke at work, quit on the weekend, so you have a few days to adjust to the change. T = Tell family, friends, and co-workers that you plan to quit. Let your friends and family in on your plan to quit smoking and tell them you need their support and encouragement to stop. Look for a quit donato who wants to stop smoking as well. You can help each other get through the rough times. A = Anticipate and plan for the challenges you'll face while quitting. Most people who begin smoking again do so within the first 3 months. You can help yourself make it through by preparing ahead for common challenges, such as nicotine withdrawal and cigarette cravings. R = Remove cigarettes and other tobacco products from your home, car, and work. Throw away all your cigarettes (no emergency pack!), lighters, ashtrays, and matches. Wash your clothes and freshen up anything that smells like smoke. Shampoo your car, clean your drapes and carpet, and steam your furniture. T = Talk to your doctor about getting help to quit. Your doctor can prescribe medication to help with withdrawal and suggest other alternatives. If you can't see a doctor, you can get many products over the counter at your local pharmacy or grocery store, including the nicotine patch, nicotine lozenges, and nicotine gum. Resources for Quitting Smoking: <https://www.[facility].gov/documents/[facility]/Quit_Tobacco_Resources_for_patients_313480_7.pdf> Supplementation: Take recommended dosages of Vitamin D and Calcium to help fortify your bones and help them to heal. See your health maintenance packet for dosages and recommended levels. DVT/VTE prophylaxis: You will be given compression stockings from the hospital. Wear these daily for the first two weeks after surgery. You may take them off at night. You may be prescribed a medication to help thin your blood. Take this as directed. If you are not prescribed this medication, early and frequent ambulation has been shown to be the best prophylaxis to deep vein thrombosis and sequelae related to this event. Discharge Disposition: HOME SELF-CARE
[2024-01-06 09:01] VITALS: BP 108/66; RESP 16
[2024-01-06] MEDS: TAMSULOSIN 0.4 MG CAP.ER.24H PO SCH (09:05)
--- NOTE | 2024-01-06 09:30 | P.PN ---
Progress Note - Text Progress Note Date: 01/06/24 Diagnosis: Status post T10-L2 posterior stabilization, L1-L2 posterior lateral and interbody fusion Subjective: Patient was seen at bedside this morning sitting up in chair with legs elevated and Peterson in place. Dressing is present over thoracolumbar spine. Patient says she is looking forward to going home later today. Patient says she is following up next week with urology due to urinary retention. Patient says this has been an issue in the past. Patient says she does have a walker at home. Patient says she is having some localized pain in the low back and this does increase oral bed when she gets up and changes positions. Patient denies any other issues at this time. Patient denies chest pain, fever, shortness breath, nausea, vomiting, change in vision, loss of bowel/bladder control. Objective: Incision on the thoracolumbar spine appears to be clean, dry, intact. Negative for any squatting or active drainage. Sensation is equal, symmetric, bilaterally intact throughout the upper and lower extremities. Patient does have good range of motion throughout upper and lower extremities on exam. Radial pulses intact, 2+ bilaterally. Cap refill under 3 seconds in digits of upper extremities. Negative Homans bilaterally. Negative Yuni. Negative clonus bilaterally. Assessment: Postoperative day #4 status post T10-L2 posterior stabilization, L1-L2 posterior lateral and interbody fusion History of previous [id number] decompression and fusion Plan: Pain medications as needed. Discharge home today. Follow up with urology next week. Okay to remove dressing at home tomorrow or Tuesday. Follow up in office with Dr. Syed in 10 days
--- NOTE | 2024-01-06 09:42 | P.PN ---
Subjective Progress Note Date: 01/06/24 01/03/2024 this is 73-year-old female with past medical history significant for previous L2-pelvis decompression and fusion, progressive back pain with lower extremity radiculopathy, status post T10-L2 posterior stabilization, L1-L2 posterior lateral and interbody fusion, stop day #1. Tolerated procedure well. Sitting up in chair. Pain control improving. Blood pressure soft during the night, improving. Afebrile, WBC 12.73. Passing flatus. Denies abdominal pain. maintaining O2 sats in the 90s on 2 L nasal cannula. Minimal ambulation, in room with PT. denies lightheadedness dizziness or focal deficits. Blood sugars controlled. Hemovac with serosanguineous drainage. 01/04/2024 pain better controlled. afebrile. Ambulated further today to her doorway. denies lightheadedness dizziness or focal deficits. Passing flatus, no bowel movement. Blood sugars controlled, A1c 6.1. Maintaining O2 sats in the 90s on 2 L nasal cannula. Blood pressure soft, Imdur and RAUDEL inhibitor held. Afebrile. Decreased Hemovac output. 01/05/2024 Tmax 100, maintaining O2 sats in the 90s on room air. Labs pending. Better pain management. Denies chest pain, palpitations or shortness of breath. Ambulating to the nurses desk, denies lightheadedness, dizziness or focal deficits. Blood sugars controlled. 01/06/2024 afebrile, Tmax 99.5, WBC 8.74. Hemoglobin 9.9, platelets 172, chemistry unremarkable. Maintaining O2 sats in the low 90s on room air. Patient has dark red nail slovak on, staff reported prior O2 sat of 94% on toe, recheck pending with instructions to remove nail slovak off of 1 nail for accurate read. Peterson catheter reinserted yesterday for urinary retention. Flomax ordered and will follow-up with urology outpatient. Pain better controlled, ambulating more. Tolerating exertion well. Denies lightheadedness dizziness or focal deficits. Denies chest pain, palpitations or shortness of breath. Good diet intake with no nausea vomiting or diarrhea. Positive bowel movement. blood sugars controlled. Objective - Vital Signs Vital signs: Vital Signs Temp 98.9 F 01/06/24 07:18 Pulse 110 H 01/06/24 08:54 Resp 16 01/06/24 08:54 BP 108/66 01/06/24 08:46 Pulse Ox 90 L 01/06/24 08:57 FiO2 Intake & Output 01/05/24 01/06/24 01/06/24 18:59 06:59 18:59 Intake Total 240 Output Total 875 1300 Balance -635 -1300 Intake: Oral 240 Output: Urine 875 1300 Straight 375 Other: Voiding Method Indwelling Catheter Indwelling Catheter # Bowel Movements 1 2 - Exam PHYSICAL EXAM: VITAL SIGNS: [As above] GENERAL: Alert and oriented x 3, sitting up in chair, no acute distress HEENT: Conjunctivae normal. eyes normal. NECK: Supple, no JVD. CARDIOVASCULAR: S1, S2 regular.No murmur RESPIRATION: Unlabored, equal air entry, essentially clear to auscultation, breath sounds diminished in the bases. ABDOMEN: Soft, nondistended, nontender . Positive bowel sounds LEGS: No edema. no swelling NERVOUS SYSTEM: Cranial N 2-12 grossly normal. Skin: Warm and dry, no rash. - Labs CBC & Chem 7: 01/05/24 07:05 01/05/24 07:05 Labs: Abnormal Lab Results - Last 24 Hours (Table) 01/05/24 01/05/24 01/05/24 Range/Units 07:05 11:53 17:00 RBC 3.45 L (4.10-5.20) X 10*6/uL Hgb 9.9 L (12.0-15.0) g/dL Hct 31.1 L (37.2-46.3) % MCHC 31.8 L (32.0-37.0) g/dL POC Glucose (mg/dL) 131 H 139 H (70-110) mg/dL Assessment and Plan Assessment: Progressive back pain with lower extremity radiculopathy, in a patient with history of previous L2-pelvis decompression and fusion,status post T10-L2 posterior stabilization, L1-L2 posterior lateral and interbody fusion. Postoperative atelectasis, expected outcome Urinary retention, requiring Peterson catheter placement. UA with micro, results to be faxed to PCP. Chronic asthma, stable Diabetes mellitus , hemoglobin A1c 6.1 Morbid obesity, BMI 32 Hypertension Hyperlipidemia Plan: Continue on current medication regimen, monitoring and symptomatic treatment. Discharge planning in progress as per primary .patient has been instructed to maintain aggressive pulmonary toileting with continuing to work with incentive spirometer as previously advised.pain management, DVT prophylaxis as per primary. Flomax added for urinary retention, required reinsertion of Peterson catheter -follow-up with urology outpatient, UA with micro collected, results to be faxed to PCP. Follow-up with PCP in 1 week. The impression and plan of care has been dictated as directed. : I performed a history and examination of this patient, discussed the same with the dictator. I agree with the dictator's note ,documented as a scribe. Any additional findings or plans will be noted.
[2024-01-06 11:36] LABS: Appearance,Urine Turbid (Clear); Bacteria,Urine Rare /hpf; Bilirubin,Urine Negative (Negative); Blood,Urine Trace (Negative); Budding Yeast,Urine Many /hpf; Color,Urine Yellow; Glucose,Urine (UA) Negative (Negative); Hyaline Casts,Urine 4 /lpf (0-2); Ketones,Urine Negative (Negative); Leukocyte Esterase,Urine Small (Negative); Mucus,Urine Occasional /hpf; Nitrite,Urine Negative (Negative); Protein,Urine Trace (Negative); RBC,Urine 20 /hpf (0-5); Specific Gravity,Urine 1.019 (1.001-1.035); Squamous Epithelial Cell,Urine 1 /hpf (0-4); Urobilinogen,Urine <2.0 mg/dL (<2.0); WBC,Urine 18 /hpf (0-5)
[2024-01-06 11:49] LABS: Glucose,Whole Blood 115 mg/dL (70-110)
[2024-01-06 16:05] VITALS: PULSE 103; TEMP 99.5
== END 2024-01-06 16:13 | disposition home or self-care (01) | DRG 454 ==
LOC: 2ORMAIN 08:21 → 4SSUR 16:39
PROVIDERS: ADMIT Orthopaedic Surgery; ATTEND Orthopaedic Surgery
PROC: 0SG0071 Fusion of Lumbar Vertebral Joint with Autologous Tissue Substitute, Posterior Approach, Posterior Column, Open Approach (ICD-10-PCS; 2024-01-02)
PROC: 01NB0ZZ Release Lumbar Nerve, Open Approach (ICD-10-PCS; 2024-01-02)
PROC: 00NY0ZZ Release Lumbar Spinal Cord, Open Approach (ICD-10-PCS; 2024-01-02)
PROC: 0ST20ZZ Resection of Lumbar Vertebral Disc, Open Approach (ICD-10-PCS; 2024-01-02)
PROC: 0QS004Z Reposition Lumbar Vertebra with Internal Fixation Device, Open Approach (ICD-10-PCS; 2024-01-02)
PROC: 0PS43ZZ Reposition Thoracic Vertebra, Percutaneous Approach (ICD-10-PCS; 2024-01-02)
PROC: 0PU43JZ Supplement Thoracic Vertebra with Synthetic Substitute, Percutaneous Approach (ICD-10-PCS; 2024-01-02)
PROC: 0PH404Z Insertion of Internal Fixation Device into Thoracic Vertebra, Open Approach (ICD-10-PCS; 2024-01-02)
PROC: 0QH004Z Insertion of Internal Fixation Device into Lumbar Vertebra, Open Approach (ICD-10-PCS; 2024-01-02)
PROC: 8E0WXBZ Computer Assisted Procedure of Trunk Region (ICD-10-PCS; 2024-01-02)
PROC: 0SG00AJ Fusion of Lumbar Vertebral Joint with Interbody Fusion Device, Posterior Approach, Anterior Column, Open Approach (ICD-10-PCS; principal; 2024-01-02 10:45)
DX: S32.019S Unspecified fracture of first lumbar vertebra, sequela (principal); M47.16 Other spondylosis with myelopathy, lumbar region; M40.209 Unspecified kyphosis, site unspecified; E11.9 Type 2 diabetes mellitus without complications; E66.01 Morbid (severe) obesity due to excess calories; Z68.32 Body mass index [BMI] 32.0-32.9, adult; I10 Essential (primary) hypertension; J45.998 Other asthma; M51.36 Other intervertebral disc degeneration, lumbar region; M47.26 Other spondylosis with radiculopathy, lumbar region; M48.061 Spinal stenosis, lumbar region without neurogenic claudication; M85.88 Other specified disorders of bone density and structure, other site; R33.9 Retention of urine, unspecified; E78.5 Hyperlipidemia, unspecified; I25.10 Atherosclerotic heart disease of native coronary artery without angina pectoris; G47.30 Sleep apnea, unspecified; K21.9 Gastro-esophageal reflux disease without esophagitis; W19.XXXS Unspecified fall, sequela; Z96.651 Presence of right artificial knee joint; Z96.611 Presence of right artificial shoulder joint; Z91.81 History of falling; Z98.1 Arthrodesis status; Z79.84 Long term (current) use of oral hypoglycemic drugs; Z79.890 Hormone replacement therapy; Z79.899 Other long term (current) drug therapy; I25.2 Old myocardial infarction; Z86.73 Personal history of transient ischemic attack (TIA), and cerebral infarction without residual deficits; Z88.8 Allergy status to other drugs, medicaments and biological substances
CPT/HCPCS: 72100; 72128; 72131; 80048; 81001; 83036; 85025; 86891; 87086; 94640; 94760

== ENCOUNTER 2024-02-14 11:33 | Emergency (ER) | payer MEDICARE, OTHER ==
--- NOTE | 2024-02-14 12:20 | ED ---
General Adult HPI - General Chief complaint: Extremity Injury, Lower Stated complaint: R Hip Pain Time Seen by Provider: 02/14/24 12:00 Source: patient, RN notes reviewed, old records reviewed Mode of arrival: wheelchair Limitations: no limitations - History of Present Illness Initial comments: This is a 73-year-old female who presents to the emergency department complaining of right lateral hip pain. Patient states 7 weeks ago she had a spinal fusion. Patient states today she was in the bathroom and twisted and also started having these sharp pain on the right lateral hip. Patient states she did not fall there was no blunt trauma. Patient states she took a [place] but it did not touch. Patient denies any radiation of the pain there is no perineum numbness there is no radiation down the leg there is no decrease sensation there is no weakness patient has no other complaints - Related Data Home Medications Medication Instructions Recorded Confirmed dilTIAZem HCL [dilTIAZem HCL 24Hr 360 mg PO DAILY 04/07/16 01/02/24 ER] Amitriptyline HCl 50 mg PO DAILY 01/29/19 01/02/24 Atorvastatin [Lipitor] 20 mg PO HS 04/23/20 01/02/24 Pantoprazole [Protonix] 40 mg PO DAILY 04/23/20 01/02/24 Levothyroxine Sodium [Synthroid] 50 mcg PO DAILY 11/08/21 01/02/24 sitaGLIPtin [Januvia] 100 mg PO DAILY 11/08/21 01/02/24 lisinopriL [Zestril] 5 mg PO DAILY 10/11/22 01/02/24 L.acidoph,Tomasa Abarca.lactis 1 tab PO DAILY 10/20/22 01/02/24 [Probiotic] Calcium Carbonate/Vitamin D3 2 tab PO DAILY 05/05/23 01/02/24 [Calcium 600 mg-D3 20 mcg (800 unit)] Cholecalciferol [Vitamin D3 (25 25 mcg PO DAILY 05/05/23 01/02/24 Mcg = 1000 Iu)] Ferrous Sulfate [Iron (65 MG 325 mg PO DAILY 05/05/23 01/02/24 Elemental)] Multivit with Calcium,Iron,Min 1 tab PO DAILY 05/05/23 01/02/24 [Women's Multivitamin] Isosorbide Mononitrate [Isosorbide 60 mg PO DAILY 12/26/23 01/02/24 Mononitrate ER] Previous Rx's Medication Instructions Recorded Nitroglycerin Sl Tabs [Nitrostat] 0.4 mg SUBLINGUAL Q5M PRN tab 10/19/23 Albuterol Inhaler [Ventolin Hfa 2 puff INHALATION QID PRN #8 gm 01/06/24 Inhaler] Budesonide/Formoterol Fumarate 2 puff INHALATION BID #10.2 gm 01/06/24 [Symbicort 80-4.5 Mcg Inhaler] Cyclobenzaprine [Flexeril] 5 mg PO TID #21 tablet 01/06/24 Gabapentin 300 mg PO TID #30 cap 01/06/24 HYDROcodone/APAP 7.5-325MG [L[place] Jack 1 tab PO Q6HR PRN #28 tab 01/06/24 7.5-325] Sennosides/Docusate Sodium [Senna 1 each PO DAILY #20 capsule 01/06/24 Plus 8.6-50 mg Softgel] Tamsulosin [Flomax] 0.4 mg PO PC-BRKFST #30 cap 01/06/24 cefaDROXiL [Duricef] 500 mg PO Q12HR #10 cap 01/06/24 Ketorolac [Toradol] 10 mg PO Q6HR #15 tab 02/14/24 Allergies Allergy/AdvReac Type Severity Reaction Status Date / Time levofloxacin [From Levaquin] Allergy Rapid Verified 02/14/24 12:02 Heart Rate Review of Systems ROS Statement: Those systems with pertinent positive or pertinent negative responses have been documented in the HPI. ROS Other: All systems not noted in ROS Statement are negative. Past Medical History Past Medical History: Asthma, Coronary Artery Disease (CAD), CVA/TIA, Diabetes Mellitus, GERD/Reflux, Hyperlipidemia, Hypertension, Myocardial Infarction ([place]), Musculoskeletal Disorder, Sleep Apnea/CPAP/BIPAP Additional Past Medical History / Comment(s): GLASSES DAILY USE, IGA RESPONSE TRIGGERS ASTHMA, TRIGGER FINGER, LUMBAR DDD, TIA 2012- NO RESIDUAL, USES C-PAP, HX LUMBAR FX-FELL ABOUT 1 YEAR AGO, HX KIDNEY STONES Last Myocardial Infarction Date:: 09/2005 History of Any Multi-Drug Resistant Organisms: None Reported Past Surgical History: Back Surgery, Breast Surgery, Joint Replacement, Orthopedic Surgery Additional Past Surgical History / Comment(s): LT KNEE ARTHROSCOPY. LT CTR. HX KIDNEY STONE REMOVAL 10/2012, [facility] PAIN [facility]INIC PROCEDURES, BREAST BX LT BREAST-BENIGN, right knee replacement, lithotripsy, BILAT CATARACTS REMOVED WITH LENS IMPLANTS, COLONOSCOPY, SPINAL FUSION, RT SHOULDER REPLACEMENT Past Anesthesia/Blood Transfusion Reactions: No Reported Reaction Additional Past Anesthesia/Blood Transfusion Reaction / Comment(s): WAS ON A VENT FOR 24 HOURS AFTER LAST SPINAL FUSION. NO HX BLOOD TRANSFUSION Past Psychological History: No Psychological Hx Reported Smoking Status: Never smoker Past Alcohol Use History: None Reported Past Drug Use History: None Reported - Past Family History Mother Family Medical History: Cancer Additional Family Medical History / Comment(s): FROM THYROID CA, Father Family Medical History: Cancer Additional Family Medical History / Comment(s): FROM STOMACH CA, HX ALCOHOLISM General Exam - General Exam Comments Initial Comments: GENERAL Patient is well-developed and well-nourished. Patient is in mild distress. EYES Patient's pupils are equal and round. Extraocular motion is intact SKIN Unremarkable NEURO The patient is alert and oriented -3 PYSCH Patient has normal interpersonal interactions. MUSCULOSKELETAL Patient has some tenderness on the right greater trochanter area. Patient has full range of motion of the hip. There is no decreased sensation no weakness patient has no swelling or redness. Straight leg test is negative at 60 degrees Limitations: no limitations Course Vital Signs 02/14/24 11:59 Temperature 97.7 F Pulse Rate 85 Respiratory 16 Rate Blood Pressure 126/76 O2 Sat by Pulse 97 Oximetry Medical Decision Making - Medical Decision Making Was pt. sent in by a medical professional or institution (, PA, ASSAULT AMPHIBIOUS VEHICLE CREWMAN, urgent ca re, hospital, or half-way...) When possible be specific @ -No Did you speak to anyone other than the patient for history (EMS, parent, family, police, friend...)? What history was obtained from this source @ -No Did you review nursing and triage notes (agree or disagree)? Why? @ -I reviewed and agree with nursing and triage notes Were old charts reviewed (outside hosp., previous admission, EMS record, old EKG, old radiological studies, urgent care reports/EKG's, half-way records)? Report findings @ -I reviewed prior radiological studies Differential Diagnosis (chest pain, altered mental status, abdominal pain women, abdominal pain men, vaginal bleeding, weakness, fever, dyspnea, syncope, headache, dizziness, GI bleed, back pain, seizure, CVA, palpatations, mental health, musculoskeletal)? @ -Differential Musculoskeletal Muscular strain, contusion, ligament sprain, fracture, arthritis, septic arthritis, bursitis, cellulitis, muscle spasm, nerve compression, DVT, arterial occlusion, herpes zoster, electrolyte abnormality, tumor.... This is not meant to be in all inclusive list EKG interpreted by me (3pts min.). @ -As above X-rays interpreted by me (1pt min.). @ -X-ray of the hip and pelvis show no acute abnormality CT interpreted by me (1pt min.). @ -None done U/S interpreted by me (1pt. min.). @ -None done What testing was considered but not performed or refused? (CT, X-rays, U/S, labs)? Why? @ -None What meds were considered but not given or refused? Why? @ -None Did you discuss the management of the patient with other professionals (professionals i.e. , PA, ASS[employer]ULT AMP[employer]LE CREWMAN, lab, RT, psych nurse, rn social services, polysomnographer, teacher, contract officer, case checker)? Give summary @ -No Was smoking cessation discussed for >3mins.? @ -No Was critical care preformed (if so, how long)? @ -No Were there social determinants of health that impacted care today? How? (Homelessness, low income, unemployed, alcoholism, drug addiction, transportation, low edu. Level, literacy, decrease access to med. care, usp, rehab)? @ -No Was there de-escalation of care discussed even if they declined (Discuss DNR or withdrawal of care, Hospice)? DNR status @ -No What co-morbidities impacted this encounter? (DM, HTN, Smoking, COPD, CAD, Cancer, CVA, ARF, Chemo, Hep., AIDS, mental health diagnosis, sleep apnea, morbid obesity)? @ -None Was patient admitted / discharged? Hospital course, mention meds given and route, prescriptions, significant lab abnormalities, going to OR and other pertinent info. @ -Patient received a Toradol shot as well as Dilaudid shot in the emergency department was feeling better patient will be sent home with some Toradol and told to continue to take her L[place]. Patient also was told to apply ice for about 20 minutes on and off for the first 48 hours and then transferred to heat. If pain symptoms persist she was told to follow-up with Dr. Syed Undiagnosed new problem with uncertain prognosis? @ -No Drug Therapy requiring intensive monitoring for toxicity (Heparin, Nitro, Insulin, Cardizem)? @ -No Were any procedures done? @ -No Diagnosis/symptom? @ -Trochanteric bursitis Acute, or Chronic, or Acute on Chronic? @ -Acute Uncomplicated (without systemic symptoms) or Complicated (systemic symptoms)? @ -Uncomplicated Side effects of treatment? @ -No Exacerbation, Progression, or Severe Exacerbation? @ -No Poses a threat to life or bodily function? How? (Chest pain, [place], [place], pneumonia, PE, COPD, DKA, ARF, appy, cholecystitis, CVA, Diverticulitis, Homicidal, Suicidal, threat to staff... and all critical care pts) @ -No Disposition Clinical Impression: Trochanteric bursitis Disposition: HOME SELF-CARE Prescriptions: Ketorolac [Toradol] 10 mg PO Q6HR #15 tab Is patient prescribed a controlled substance at d/c from ED?: No Referrals: Richard Tinoco MD [Primary Care Provider] - 1-2 days Time of Disposition: 13:08
[2024-02-14] MEDS: HYDROmorphone 0.5 MG/0.5 ML SYRINGE IM STA (12:21)
[2024-02-14] MEDS: KETOROLAC 15 MG/ML 1 ML VIAL IM STA (12:21)
[2024-02-14 12:31] VITALS: BP 126/76; PULSE 85; RESP 16; TEMP 97.7
--- NOTE | 2024-02-14 13:33 | XR ---
EXAMINATION TYPE: XR Hip RT and AP Pelvis DATE OF EXAM: 02/14/2024 12:49 PM CLINICAL INDICATION:Female, 73 years old with history of Trauma; [facility] COMPARISON: None. TECHNIQUE: XR Hip RT and AP Pelvis; hip was examined in the frontal and lateral projections and a AP pelvis. FINDINGS: Postsurgical changes to the spine with hardware intact. No evidence for acute process, join t dislocation or significant soft tissue swelling. Osteophyte formation of the superior acetabulum of the hip. IMPRESSION: 1. No evidence for acute process. 2. Mild hip osteoarthrosis.
== END 2024-02-14 14:04 | disposition home or self-care (01) ==
LOC: EC 11:33
DX: M25.551 Pain in right hip (principal); Z88.1 Allergy status to other antibiotic agents
CPT/HCPCS: 73502; 99283; 96372 ×2; J1885; J1170

== ENCOUNTER → 2024-04-12 | Outpatient (CLI) | payer MEDICARE, OTHER ==
[2024-04-12] MEDS: ZOLEDRONIC ACID 5 MG in SODIUM CHLORIDE 0.9% 100 ML IV NR (14:02)
[2024-04-12] MEDS: SODIUM CHLORIDE 0.9% 500 ML 500 ML in EMPTY BAG 1 BAG IV PRN (14:02)
[2024-04-12 14:10] VITALS: BP 104/56; PULSE 90; RESP 16; TEMP 98.6
== END ==
LOC: PROCWHC3 13:38
PROVIDERS: ATTEND Family Medicine
DX: M81.8 Other osteoporosis without current pathological fracture (principal)
CPT/HCPCS: 96365; J3489

== ENCOUNTER 2024-07-03 07:28 | Day surgery (SDC) | payer MEDICARE, OTHER ==
[2024-07-03] MEDS ORDERED: LACTATED RINGERS 1,000 ML BAG ONE (08:45)
[2024-07-03] MEDS ORDERED: PROPOFOL 10 MG/ML 20 ML VIAL IV ONE (09:17)
== END 2024-07-03 10:20 | disposition home or self-care (01) ==
LOC: ORWHC2ENDO 07:28
PROVIDERS: ATTEND Surgery
DX: Z12.11 Encounter for screening for malignant neoplasm of colon (principal); I10 Essential (primary) hypertension; E78.00 Pure hypercholesterolemia, unspecified; D80.2 Selective deficiency of immunoglobulin A [IgA]; J45.909 Unspecified asthma, uncomplicated; Z86.73 Personal history of transient ischemic attack (TIA), and cerebral infarction without residual deficits; Z90.49 Acquired absence of other specified parts of digestive tract; Z98.890 Other specified postprocedural states; Z79.84 Long term (current) use of oral hypoglycemic drugs; Z79.899 Other long term (current) drug therapy; Z79.51 Long term (current) use of inhaled steroids; Z96.611 Presence of right artificial shoulder joint; Z96.653 Presence of artificial knee joint, bilateral; Z88.1 Allergy status to other antibiotic agents; Z88.5 Allergy status to narcotic agent

== ENCOUNTER → 2024-08-31 | Outpatient (CLI) | payer MEDICARE, OTHER | END | disposition home or self-care (01) | LOC: LABPAT 13:26 | PROVIDERS: ATTEND Orthopaedic Surgery | DX: Z01.812 Encounter for preprocedural laboratory examination (principal); M19.012 Primary osteoarthritis, left shoulder; Z22.322 Carrier or suspected carrier of Methicillin resistant Staphylococcus aureus | CPT/HCPCS: 87070 ==

== ENCOUNTER → 2024-09-17 | Outpatient (CLI) | payer MEDICARE, OTHER ==
[2024-09-17 07:36] LABS: INR 0.9 (<1.2); Partial Thromboplastin Time 22.6 sec (22.0-30.0); Prothrombin Time 10.4 sec (10.0-12.5)
[2024-09-17 10:42] LABS: HCT 38.8 % (37.2-46.3); HGB 12.3 g/dL (12.0-15.0); MCH 28.1 pg (27.0-32.0); MCHC 31.7 g/dL (32.0-37.0); MCV 88.8 FL (80.0-97.0); Mean Platelet Volume 11.7 FL (9.5-12.2); NRBC Per 100 WBC 0 X 10*3/uL (0.00-0.01); Platelet Count 169 X 10*3/uL (140-440); RBC 4.37 X 10*6/uL (4.10-5.20); RDW 15.3 % (11.5-14.5); WBC 7.67 X 10*3/uL (4.50-10.00)
[2024-09-17 10:43] LABS: Basophils # (A) 0.05 X 10*3/uL (0.00-0.10); Basophils % (A) 0.7 %; Eosinophils # (A) 0.19 X 10*3/uL (0.04-0.35); Eosinophils % (A) 2.5 %; Lymphocytes # (A) 2.14 X 10*3/uL (0.90-5.00); Lymphocytes % (A) 27.9 %; Monocytes # (A) 0.53 X 10*3/uL (0.20-1.00); Monocytes % (A) 6.9 %; Neutrophils # (A) 4.74 X 10*3/uL (1.80-7.70); Neutrophils % (A) 61.7 %
[2024-09-17 11:33] LABS: ALT 12 U/L (8-44); AST 18 U/L (13-35); Alkaline Phosphatase 103 U/L (41-126); Blood Urea Nitrogen 20.4 mg/dL (9.0-27.0); Carbon Dioxide 20.5 mmol/L (21.6-31.8); Chloride 105 mmol/L (96-109); Globulin 2.5 g/dL (1.6-3.3); Glucose 100 mg/dL (70-110); Potassium 4.6 mmol/L (3.5-5.5); Sodium 140 mmol/L (135-145); Total Bilirubin 0.2 mg/dL (0.3-1.2); Total Protein 6.5 g/dL (6.2-8.2)
== END | disposition home or self-care (01) ==
LOC: LABPAT 06:52
PROVIDERS: ATTEND Family Medicine
DX: Z01.818 Encounter for other preprocedural examination (principal)
CPT/HCPCS: 80053; 85025; 85610; 85730; 93005

== ENCOUNTER 2024-09-25 08:19 | Inpatient (IN) | payer MEDICARE, OTHER ==
--- NOTE | 2024-09-24 08:24 | P.HPOR ---
History of Present Illness H&P Date: 09/24/24 Chief Complaint: Left shoulder pain The patient is a 74-year-old [id number] retired female who presents with left shoulder pain for the past year worsening over the past couple of months. She is having anterior and lateral pain with any overhead activity. He is hav ing night symptoms. She's tried medications without much relief. She has daily pain that limits her. Review of Systems Per HPI Past Medical History Past Medical History: Asthma, Coronary Artery Disease (CAD), CVA/TIA, Diabetes Mellitus, GERD/Reflux, Hyperlipidemia, Hypertension, Myocardial Infarction ([place]), Musculoskeletal Disorder, Sleep Apnea/CPAP/BIPAP, Thyroid Disorder Additional Past Medical History / Comment(s): IGA RESPONSE TRIGGERS ASTHMA, TRIGGER FINGER, LUMBAR DDD, TIA 2012- NO RESIDUAL, USES C-PAP, HX LUMBAR FX AFTER FALL, HX KIDNEY STONES, OSTEOPOROSIS, HYPOTHYROID; HAS DEXCOM G7 CONTINUOUS GLUCOSE MONITOR. Last Myocardial Infarction Date:: 09/2005 History of Any Multi-Drug Resistant Organisms: None Reported Past Surgical History: Appendectomy, Back Surgery, Breast Surgery, Cholecystectomy, Heart Catheterization, Joint Replacement, Orthopedic Surgery Additional Past Surgical History / Comment(s): LT KNEE ARTHROSCOPY. LT CTR. HX KIDNEY STONE REMOVAL, [facility] LASER EYE SURG. PAIN CLINIC PROCEDURES, BREAST BX LT BREAST-BENIGN, right knee replacement, lithotripsy, BILAT CATARACTS REMOVED WITH LENS IMPLANTS, COLONOSCOPY, SPINAL FUSION, RT SHOULDER REPLACEMENT Past Anesthesia/Blood Transfusion Reactions: No Reported Reaction Additional Past Anesthesia/Blood Transfusion Reaction / Comment(s): WAS ON A VENT FOR 24 HOURS AFTER SPINAL FUSION JANUARY 2022. NO HX BLOOD TRANSFUSION Smoking Status: Never smoker - Past Family History Mother Family Medical History: Cancer Additional Family Medical History / Comment(s): FROM THYROID CA Father Family Medical History: Cancer Additional Family Medical History / Comment(s): FROM STOMACH [place], HX ALCOHOLISM Medications and Allergies Home Medications Medication Instructions Recorded Confirmed Type dilTIAZem HCL [dilTIAZem HCL 24Hr 360 mg PO DAILY 04/07/16 09/20/24 History ER] Amitriptyline HCl 50 mg PO HS 01/29/19 09/20/24 History Atorvastatin [Lipitor] 20 mg PO HS 04/23/20 09/20/24 History Pantoprazole [Protonix] 40 mg PO DAILY 04/23/20 09/20/24 History Levothyroxine Sodium [Synthroid] 50 mcg PO DAILY 11/08/21 09/20/24 History lisinopriL [Zestril] 5 mg PO DAILY 10/11/22 09/20/24 History L.acidoph,Paracasei, B.lactis 1 tab PO DAILY 10/20/22 09/20/24 History [Probiotic] Calcium Carbonate/Vitamin D3 2 tab PO DAILY 05/05/23 09/20/24 History [Calcium 600 mg-D3 20 mcg (800 unit)] Cholecalciferol [Vitamin D3 (25 25 mcg PO DAILY 05/05/23 09/20/24 History Mcg = 1000 Iu)] Ferrous Sulfate [Iron (65 MG 325 mg PO DAILY 05/05/23 09/20/24 History Elemental)] Multivit with Calcium,Iron,Min 1 tab PO DAILY 05/05/23 09/20/24 History [Women's Multivitamin] Nitroglycerin Sl Tabs [Nitrostat] 0.4 mg SUBLINGUAL Q5M PRN tab 10/19/23 09/20/24 Rx Isosorbide Mononitrate [Isosorbide 60 mg PO BID 12/26/23 09/20/24 History Mononitrate ER] Metoprolol Succinate (ER) [Toprol 25 mg PO DAILY 06/29/24 09/20/24 History Xl] glipiZIDE 5 mg PO DAILY 06/29/24 09/20/24 History Allergies Allergy/AdvReac Type Severity Reaction Status Date / Time levofloxacin [From Levaquin] Allergy Rapid Verified 09/20/24 14:13 Heart Rate Physical Examination - Shoulder left Appearance: effusion Tenderness with palpation: anterior, bicipital groove ROM: forward flexion: 140 degrees ROM: internal rotation: upper lumbar ROM: external rotation: 50 degrees Crepitus with motion: Yes Strength: abduction: 5/5 Strength: external rotation: 5/5 Tests: internal impingement tests: positive, external impingment tests: positive Results The patient is a well-developed well-nourished female proximally for 411, 145 pounds of mesomorphic habitus. HEENT exam is nonfocal, neck supple. She's tender about the left anterior glenohumeral joint. Moderate crepitus is noted. She has limited active range of motion. Impingement test, Neer test are positive. Her distal neurovascular appears intact in the left upper extremity. - Diagnostic results Shoulder x-ray: image reviewed (X-rays of the left shoulder obtained the office show severe glenohumeral joint osteoarthrosis with [id number] changes.) Assessment and Plan Assessment: Left severe glenohumeral joint osteoarthrosis Plan: I talked with patient at length regarding her condition along with treatment options. At this point she's quite cinematic having pain and limitation secondary to her left glenohumeral joint osteoporosis despite previous conservative measures. After a thorough discussion she opts to proceed with surgery. We'll plan to proceed with left total shoulder arthroplasty. We will likely keep the patient for 23 hold postoperatively. Risks and benefits were discussed at length in layman's terms.
[~2024-09-25 08:19] MED LIST changes: +LIDOCAINE 1% (10MG/ML) FOR IV START INTRADERMA PRN; -MIDAZOLAM 2 MG/2 ML VIAL IV PRN
[2024-09-25] MEDS: IV FLUID CONTINUATION 1,000 ML IV ONE ×4 (08:50→09:00)
[2024-09-25 09:07] LABS: Glucose,Whole Blood 82 mg/dL (70-110)
[2024-09-25] MEDS: DEXAMETHASONE SOD PHOSPHATE 4 MG/ML 1 ML VIAL IV ONE (09:12)
[2024-09-25] MEDS: LACTATED RINGERS 1,000 ML IV SCH (09:12)
[2024-09-25] MEDS: MELOXICAM 7.5 MG TAB PO PRN (09:13)
[2024-09-25] MEDS: ACETAMINOPHEN TAB 500 MG TAB PO PRN (09:13)
[2024-09-25] MEDS: ONDANSETRON 4 MG/2 ML VIAL IVP ONE (09:13)
[2024-09-25] MEDS: fentaNYL (PF) 50 MCG/ML 2 ML AMP IVP PRN (09:27)
[2024-09-25] MEDS: MIDAZOLAM 2 MG/2 ML VIAL IV ONE (09:27)
--- NOTE | 2024-09-25 09:44 | P.ANPRN ---
Procedure Note - Anesthesia - Nerve Block Performed Left Interscalene Single Time Out Performed: Yes ([id number]) Date of Procedure: 09/25/24 Procedure Start Time: Procedure Stop Time: Location of Patient: PreOp Indication: Acute Post-Operative Pain, Requested by Surgeon Specifically requested for management of pain by : Memo Pulido Sedation Type: Sedate with meaningful contact maintained Preparation: Sterile Prep Position: Supine Catheter: None Needle Types: Pajunk Needle Gauge: 21 Ultrasound used to visualize needle placement: Yes Ultrasound used to observe medication spread: Yes Injectate: 0.5% Ropivacaine (see comment for volume) (30cc) Blood Aspirated: No Pain Paresthesia on Injection Noted: No Resistance on Injection: Normal Image Stored and Saved: Yes Events: Uneventful and Well Tolerated
[2024-09-25] MEDS ORDERED: fentaNYL (PF) 50 MCG/ML 2 ML AMP ONE (09:55)
[2024-09-25] MEDS ORDERED: LIDOCAINE 1% INJ 10MG/ML (20 ML MDV) ONE (09:55)
[2024-09-25] MEDS ORDERED: NEOSTIGMINE 1 MG/ML 10 ML VIAL ONE (09:55)
[2024-09-25] MEDS ORDERED: GLYCOPYRROLATE 0.2 MG/ML 2 ML VIAL ONE (09:55)
[2024-09-25] MEDS ORDERED: ROCURONIUM 10 MG/ML (5 ML VIAL) IV ONE (09:55)
[2024-09-25] MEDS ORDERED: PHENYLEPHRINE 10 MG/ML VIAL ONE (09:55)
[2024-09-25] MEDS ORDERED: TRANEXAMIC 1,000 MG/100ML-NACL PREMIX BAG ONE (09:55)
[2024-09-25] MEDS ORDERED: ROPIVACAINE 5 MG/ML 30 ML VIAL ONE (09:55)
[2024-09-25] MEDS ORDERED: PROPOFOL 10 MG/ML 20 ML VIAL IV ONE (09:55)
[2024-09-25] MEDS ORDERED: DEXAMETHASONE SOD PHOSPHATE 4 MG/ML 1 ML VIAL ONE (09:55)
[2024-09-25] MEDS ORDERED: SUCCINYLCHOLINE CHLORIDE 200 MG/10 ML VIAL IV ONE (09:55)
[2024-09-25] MEDS ORDERED: MIDAZOLAM 2 MG/2 ML VIAL ONE (09:55)
[2024-09-25] MEDS: ceFAZolin 1,000 MG in SODIUM CHLORIDE 0.9% 1,000 ML IRRIGATION ONE (10:09)
[2024-09-25] MEDS: LACTATED RINGERS 1,000 ML IV ONE (11:40)
[2024-09-25] MEDS ORDERED: hydrOXYzine pamoate 25 MG CAP PO PRN (12:05)
[2024-09-25] MEDS ORDERED: HYDROmorphone 0.5 MG/0.5 ML SYRINGE IVP PRN (12:05)
[2024-09-25] MEDS ORDERED: HYDROcodone/APAP 5-325MG 1 EACH TAB PO PRN ×2 (12:05)
--- NOTE | 2024-09-25 12:33 | P.OP ---
Date of Procedure: 09/25/24 Preoperative Diagnosis: Severe left glenohumeral joint osteoarthrosis Postoperative Diagnosis: Same Procedure(s) Performed: Left total shoulder arthroplasty Implants: Arthrex 39 mm trunnion, small cage screw, 39 x 18 humeral head, small glenoid. Anesthesia: [facility] Surgeon: Memo Pulido [employer] Product Engineer #1: Justin Raymundo Estimated Blood Loss (ml): 250 Pathology: none sent Condition: stable Disposition: PACU Indications for Procedure: The patient is a 74-year-old female who presents with progressive left shoulder pain secondary to osteoarthrosis despite conservative measures. A discussion of the risks and benefits of operative intervention versus continued conservative measures was made with the patient. She opted to proceed with surgery. Operative risks include infection, neurovascular injury, development of blood c lots, possible component loosening, possible component failure and need for subsequent procedures was discussed. Informed consent was obtained. Operative Findings: As below Description of Procedure: The patient was brought to the operating room, and after induction of general anesthesia was placed in a beachchair position. The bony prominences were appropriately padded. The left upper extremity was prepped and draped in normal fashion. A deltopectoral incision was then made just lateral to the coracoid process extending approximate 12 cm. Skin was incised sharply. Subcutaneous tissues were divided bluntly. The deltopectoral interval was identified and the cephalic vein was gently retracted laterally with the deltoid. The conjoined tendon was gently retracted laterally. The circumflex vessels were cauterized. The upper one third of the pectoralis was released with electrocautery to facilitate exposure. The biceps was identified and the biceps sheath was opened. The rotator interval was opened. The biceps was then tenotomized and allowed to retract distally. The subscapularis was peeled off the lesser tuberosity sharply. The underlying capsule was also released sharply from the humeral head. I was able to obtain full exposure. The subscap was tagged with #2 Ethibond suture. The shoulder was gently dislocated. I then planned on humeral head resection planning on 30 degrees of retroversion at the anatomic neck. The cutting block was pinned in place. The humeral head cut was then made. The peripheral osteophytes were carefully removed with a rongeur. The metaphyseal region was measured at 39 mm. This was hand reamed to the appropriate depth planning on a small cage screw. A protective cap was placed. Attention was then paid towards preparing the glenoid. Anterior and posterior retractors were placed. The remnants of the biceps was released from the superior glenoid. The labrum was released from the 6 to 12 o'clock position. I was able to obtain circumferential exposure of the glenoid. The glenoid sized most appropriate a small. The alignment guide was utilized to place the central pin. The glenoid was reamed down to a bleeding bony surface. The alignment guide was placed. The superior drill hole was then made along with the inferior drill holes. Keel punch was utilized to complete inferior keel. A trial size small glenoid was placed and was fully seated. There is good anterior to posterior and inferior to superior fit. The trial component was then removed. Bone graft from the humeral head was then placed around the central peg. The superior peg hole along with the inferior keel was pressurized with cement. Excess cement was removed. The glenoid component was then placed and was fully seated. This was held in place until the cement had sufficiently hardened. Attention was then again paid towards preparing the proximal humerus. Trial reduction with a 39 mm trunnion and 39 x 18 humeral head was then performed. I felt had good stability in flexion and extension and scientology of soft tissue tension. The trial components were then removed. The 39 mm trunnion was impacted. A small cage screw was inserted fully and had good purchase. I placed 2 medial row anchors and then passed the tapes through the subscapularis. A lateral row was created with 2 more sutures. Appropriate soft tissue tensioning was performed. Good purchase was obtained. The rotator interval was closed with #2 fiber tape. The wound was irrigated normal saline. The subcut aneous tissues were reapproximated interrupted 2-0 Vicryl sutures. The skin was reapproximated 3-0 subcuticular Prolene suture. Steri-Strips were then applied. A sterile dressing was applied in addition to a sling. The patient was awoken from general anesthesia and transferred to recovery room in good condition. Blood loss was estimated 250 cc. No complications were incurred. Sponge and needle counts were correct at the end of the case. BE Doshi assisted during the major components the case to include positioning, exposure, resection, implantation, and closure.
[2024-09-25 12:35] LABS: Glucose,Whole Blood 102 mg/dL (70-110)
--- NOTE | 2024-09-25 12:46 | XR ---
EXAMINATION TYPE: XR shoulder limited LT DATE OF EXAM: 09/25/2024 COMPARISON: 08/20/2024 HISTORY: 74-year-old female status post left shoulder arthroplasty, postoperative evaluation TECHNIQUE: Single AP view FINDINGS: There is placement of a left glenohumeral joint total arthroplasty. The humeral head compon ent appears well seated. Alignment grossly anatomic. There is patchy left basilar opacity noted. Soft tissue air related to recent operation. IMPRESSION: 1. Uncomplicated postoperative appearance left total shoulder arthroplasty. 2. Prominent opacity retrocardiac region and left base partially visualized. Correlate for any change in respiratory status. Dedicated chest x-ray if indicated. [facility], , 09/25/2024 12:44 PM
[2024-09-25] MEDS: droPERidol 5 MG/2 ML VIAL IVP ONE (15:28)
[2024-09-25] MEDS ORDERED: NITROGLYCERIN SL TABS 0.4 MG TAB SUBLINGUAL PRN (15:31)
[2024-09-25] MEDS ORDERED: IPRATROPIUM-ALBUTEROL 3 ML NEB INHALATION PRN (15:31)
[2024-09-25] MEDS ORDERED: DEXTROSE 50% SYRINGE 50 ML IVP PRN ×2 (15:33)
[2024-09-25 16:44] LABS: Glucose,Whole Blood 136 mg/dL (70-110)
[2024-09-25] MEDS: INSULIN ASPART (NovoLOG) 100 UNIT/ML VIAL SQ SCH (16:52)
[2024-09-25 17:56] LABS: Glucose,Whole Blood >600 mg/dL (70-110)
[2024-09-25 18:01] LABS: Glucose,Whole Blood 235 mg/dL (70-110)
[2024-09-25 18:03] LABS: Glucose,Whole Blood 217 mg/dL (70-110)
[2024-09-25 18:39] LABS: Basophils % (A) 0 %; Eosinophils # (A) 0.1 k/uL (0-0.7); Eosinophils % (A) 0 %; HCT 36.6 % (34.0-46.0); HGB 11.9 gm/dL (11.4-16.0); Lymphocytes % (A) 8 %; MCHC 32.3 g/dL (31.0-37.0); MCV 89.7 fL (80.0-100.0); Monocytes # (A) 0.2 k/uL (0-1.0); Monocytes % (A) 1 %; Neutrophils # (A) 10.9 k/uL (1.3-7.7); Neutrophils % (A) 90 %; Platelet Count 152 k/uL (150-450); RBC 4.09 m/uL (3.80-5.40); RDW 15.1 % (11.5-15.5); WBC 12.2 k/uL (3.8-10.6)
[2024-09-25 20:25] LABS: Glucose,Whole Blood 183 mg/dL (70-110)
[2024-09-25] MEDS: AMITRIPTYLINE HCL 50 MG TAB PO SCH (21:24)
[2024-09-25] MEDS: ATORVASTATIN 20 MG TAB PO SCH (21:24)
[2024-09-25] MEDS: ISOSORBIDE MONONITRATE ER 60 MG TAB.ER.24H PO SCH (21:24)
[2024-09-25] MEDS: HYDROcodone/APAP 7.5-325MG 1 EACH TAB PO PRN (23:42)
[2024-09-26] MEDS: HYDROmorphone 0.5 MG/0.5 ML SYRINGE IVP PRN (02:44)
[2024-09-26] MEDS: LEVOTHYROXINE 50 MCG TAB PO SCH (05:44)
[2024-09-26] MEDS: HYDROcodone/APAP 5-325MG 1 EACH TAB PO PRN (05:44)
[2024-09-26 06:03] LABS: Glucose,Whole Blood 166 mg/dL (70-110)
[2024-09-26] MEDS: PANTOPRAZOLE 40 MG TABLET PO SCH (07:01)
[2024-09-26] MEDS: LACTOBACILLUS ACIDOPHILUS/PECT 1 EACH CAPSULE PO SCH (08:05)
[2024-09-26] MEDS: ASPIRIN 325 MG TAB PO SCH (08:05)
[2024-09-26] MEDS: CHOLECALCIFEROL 25 MCG (1000 IU) TABLET PO SCH (08:05)
[2024-09-26] MEDS: METOPROLOL SUCCINATE (ER) 25 MG TAB.ER.24H PO SCH (08:05)
[2024-09-26] MEDS: lisinopriL 5 MG TAB PO SCH (08:05)
[2024-09-26] MEDS: FERROUS SULFATE 325 MG TAB PO SCH (08:05)
[2024-09-26] MEDS: SENNOSIDES-DOCUSATE SODIUM 1 EACH TAB PO PRN (08:05)
[2024-09-26] MEDS: glipiZIDE 5 MG TAB PO SCH (08:05)
[2024-09-26] MEDS: DILTIAZEM CD 180 MG CAP.ER.24H PO SCH (08:06)
[2024-09-26] MEDS: CALCIUM CARB-VIT D 500 MG-5 MCG TAB PO SCH (08:06)
[2024-09-26] MEDS: MULTIVITAMINS, THERA 1 EACH TAB PO SCH (08:06)
[2024-09-26 11:10] LABS: Glucose,Whole Blood 229 mg/dL (70-110)
--- NOTE | 2024-09-26 11:56 | P.PN ---
Subjective Progress Note Date: 09/26/24 Principal diagnosis: Severe left glenohumeral joint osteoarthrosis Patient was seen at bedside this morning lying semirecumbent position was sleeping presents left upper extremity as well as dressing. Patient says the lives only thing that helps with pain since surgery yesterday. She is hoping to stay one more night for additional pain control. She says she has been up walki ng under her own power. Patient states she has urinated since surgery yesterday without issue. No bowel movement yet. Denies any other issues at this time. Objective - Vital Signs Vital signs: Vital Signs Temp 97.8 F 09/26/24 07:25 Pulse 81 09/26/24 07:25 Resp 16 09/26/24 07:25 BP 113/64 09/26/24 07:25 Pulse Ox 93 L 09/26/24 07:25 FiO2 Intake & Output 09/25/24 09/26/24 09/26/24 18:59 06:59 18:59 Intake Total 1551 300 Output Total 250 Balance 1301 300 Weight 75.7 kg Intake: IV 1551 Oral 300 Output: Estimated Blood Loss 250 Other: # Voids 1 2 - Exam Left upper extremity: Incision is clean, dry, and intact. The exofin fusion tape is in good condition. There is minimal soft tissue swelling and ecchymosis surrounding the medial and lateral aspects of the incision. Calf is soft, no tenderness with palpation. Plantar flexion, dorsiflexion, EHL, FHL are intact. Sensory exam to light touch throughout the extremity is intact, dorsal pedis pulses 2+. - Labs CBC & Chem 7: 09/25/24 18:20 Labs: Abnormal Lab Results - Last 24 Hours (Table) 09/25/24 09/25/24 09/25/24 Range/Units 16:43 17:55 17:56 WBC (3.8-10.6) k/uL Neutrophils # (1.3-7.7) k/uL POC Glucose (mg/dL) 136 H >600 H* 235 H (70-110) mg/dL 09/25/24 09/25/24 09/25/24 Range/Units 18:02 18:20 20:23 WBC 12.2 H (3.8-10.6) k/uL Neutrophils # 10.9 H (1.3-7.7) k/uL POC Glucose (mg/dL) 217 H 183 H (70-110) mg/dL 09/26/24 09/26/24 Range/Units 06:01 11:09 WBC (3.8-10.6) k/uL Neutrophils # (1.3-7.7) k/uL POC Glucose (mg/dL) 166 H 229 H (70-110) mg/dL Assessment and Plan Assessment: 1. Severe left glenohumeral joint osteoarthrosis - Postoperative day 1 status post left total shoulder arthroplasty Plan: 1. Severe left glenohumeral joint osteoarthrosis - left total shoulder arthroplasty performed yesterday, 09/17/2024. Patient at bedside this morning stable with sling and dressing to left upper extremity. Remain nonweightbearing left upper extremity. Okay to perforfm gentle ROM exercises of left elbow and wrist. Pain medication as needed. We will keep patient 1 more night for additional pain control. Plan for discharge home tomorrow. 2. Appreciate medical management 3. Pain management - yadira anna 4. Dvt ppx - aspirin 5. GI ppx - senna 6. PT/OT - NWb LUE; maintain in sling 7. Encourage incentive spirometer use 8. Discharge planning - disharge home tmrw. Time with Patient: Less than 30
[2024-09-26] MEDS: LORATADINE 10 MG TAB PO SCH (12:16)
--- NOTE | 2024-09-26 14:15 | P.CONS ---
History of Present Illness - Reason for Consult Consult date: 09/26/24 Medical management Requesting physician: Memo Pulido - Chief Complaint Left shoulder osteoarthrosis status post left total shoulder arthroplasty - History of Present Illness This is a 74-year-old female with past medical history significant for chronic intermittent asthma, CAD, diabetes mellitus, gastroesophageal reflux disease, CAD, sleep apnea wears CPAP, hypothyroidism and multiple other medical issues, status post left total shoulder arthroplasty secondary to osteoarthrosis. Tolerated procedure well. Positive pain, recently medicated. Denies chest pain, palpitations or shortness of breath, maintaining O2 sats in the 90s on room air.Reports sinus drainage, seasonal, Claritin initiated. Patient is left- handed, adjusting to using right hand. Ambulated in room, tolerating exertion well. Denies lightheadedness, dizziness or focal deficits. Review of Systems ROS Statement: Those systems with pertinent positive or pertinent negative responses have been documented in the HPI. ROS Other: All systems not noted in ROS Statement are negative. Past Medical History Past Medical History: Asthma, Coronary Artery Disease (CAD), CVA/TIA, Diabetes Mellitus, GERD/Reflux, Hyperlipidemia, Hypertension, Myocardial Infarction ([place]), Musculoskeletal Disorder, Sleep Apnea/CPAP/BIPAP, Thyroid Disorder Additional Past Medical History / Comment(s): IGA RESPONSE TRIGGERS ASTHMA, TRIGGER FINGER, LUMBAR DDD, TIA 2012- NO RESIDUAL, USES C-PAP, HX LUMBAR FX AFTER FALL, HX KIDNEY STONES, OSTEOPOROSIS, HYPOTHYROID; HAS DEXCOM G7 CONTINUOUS GLUCOSE MONITOR. Last Myocardial Infarction Date:: 09/2005 History of Any Multi-Drug Resistant Organisms: None Reported Past Surgical History: Appendectomy, Back Surgery, Breast Surgery, C holecystectomy, Heart Catheterization, Joint Replacement, Orthopedic Surgery Additional Past Surgical History / Comment(s): LT KNEE ARTHROSCOPY. LT CTR. HX KIDNEY STONE REMOVAL, JOSE [facility]O LASER EYE SURG. PAIN CLINIC PROCEDURES, BREAST BX LT BREAST-BENIGN, right knee replacement, lithotripsy, BILAT CATARACTS REMOVED WITH LENS IMPLANTS, COLONOSCOPY, SPINAL FUSION, RT SHOULDER REPLACEMENT Past Anesthesia/Blood Transfusion Reactions: No Reported Reaction Additional Past Anesthesia/Blood Transfusion Reaction / Comm: WAS ON A VENT FOR 24 HOURS AFTER SPINAL FUSION JANUARY 2022. NO HX BLOOD TRANSFUSION Past Psychological History: No Psychological Hx Reported Smoking Status: Never smoker Past Alcohol Use History: None Reported Past Drug Use History: None Reported - Past Family History Mother Family Medical History: Cancer Additional Family Medical History / Comment(s): FROM THYROID [place] Father Family Medical History: Cancer Additional Family Medical History / Comment(s): FROM STOMACH [place], HX ALCOHOLISM Medications and Allergies Home Medications Medication Instructions Recorded Confirmed Type dilTIAZem HCL [dilTIAZem HCL 24Hr 360 mg PO DAILY 04/07/16 09/25/24 History ER] Amitriptyline HCl 50 mg PO HS 01/29/19 09/25/24 History Atorvastatin [Lipitor] 20 mg PO HS 04/23/20 09/25/24 History Pantoprazole [Protonix] 40 mg PO DAILY 04/23/20 09/25/24 History Levothyroxine Sodium [Synthroid] 50 mcg PO DAILY 11/08/21 09/25/24 History lisinopriL [Zestril] 5 mg PO DAILY 10/11/22 09/25/24 History L.acidoph,Paracasei, B.lactis 1 tab PO DAILY 10/20/22 09/25/24 History [Probiotic] Calcium Carbonate/Vitamin D3 2 tab PO DAILY 05/05/23 09/25/24 History [Calcium 600 mg-D3 20 mcg (800 unit)] Cholecalciferol [Vitamin D3 (25 25 mcg PO DAILY 05/05/23 09/25/24 History Mcg = 1000 Iu)] Ferrous Sulfate [Iron (65 MG 325 mg PO DAILY 05/05/23 09/25/24 History Elemental)] Multivit with Calcium,Iron,Min 1 tab PO DAILY 05/05/23 09/25/24 History [Women's Multivitamin] Nitroglycerin Sl Tabs [Nitrostat] 0.4 mg SUBLINGUAL Q5M PRN tab 10/19/23 09/25/24 Rx Isosorbide Mononitrate [Isosorbide 60 mg PO BID 12/26/23 09/25/24 History Mononitrate ER] Metoprolol Succinate (ER) [Toprol 25 mg PO DAILY 06/29/24 09/25/24 History Xl] glipiZIDE 5 mg PO DAILY 06/29/24 09/25/24 History Ipratropium-Albuterol Nebulize 3 ml INHALATION QID PRN 09/25/24 09/25/24 History [Duoneb 0.5 mg-3 mg/3 ml Soln] Allergies Allergy/AdvReac Type Severity Reaction Status Date / Time levofloxacin [From Levaquin] Allergy Rapid Verified 09/25/24 08:40 Heart Rate Physical Exam Vitals: Vital Signs Temp Pulse Resp BP Pulse Ox 09/26/24 07:25 97.8 F 81 16 113/64 93 L 09/26/24 02:00 98.4 F 76 12 94/54 92 L 09/25/24 20:00 98 F 77 13 102/58 92 L 09/25/24 15:10 97.8 F 74 17 109/63 93 L 09/25/24 14:10 68 16 105/55 94 L 09/25/24 13:55 70 16 105/54 94 L 09/25/24 13:35 64 16 104/52 94 L 09/25/24 13:20 69 16 108/55 92 L Intake and Output 09/25/24 09/26/24 09/26/24 22:59 06:59 14:59 Intake Total 300 Balance 300 Intake: Oral 300 Other: # Voids 1 2 PHYSICAL EXAM: VITAL SIGNS: [As above] GENERAL: Alert and oriented x 3, sitting up in bed, no acute distress HEENT: Conjunctivae normal. eyes normal. NECK: Supple, no JVD. CARDIOVASCULAR: S1, S2 regular.. No murmur RESPIRATION: Unlabored, equal air entry, breath sounds diminished in the bases. No rhonchi or crackles. ABDOMEN: Soft, nondistended, nontender . No guarding. no masses palpable. Positive bowel sounds EXTREMITIES: Left shoulder dressing clean dry and intact, wearing sling, positive radial pulse, fingers freely moving. NERVOUS SYSTEM: Cranial N 2-12 grossly normal. No focal deficits. Skin: Warm and dry, no rash Results CBC & Chem 7: 09/25/24 18:20 Labs: Abnormal Lab Results - Last 24 Hours (Table) 09/25/24 09/25/24 09/25/24 Range/Units 16:43 17:55 17:56 WBC (3.8-10.6) k/uL Neutrophils # (1.3-7.7) k/uL POC Glucose (mg/dL) 136 H >600 H* 235 H (70-110) mg/dL 09/25/24 09/25/24 09/25/24 Range/Units 18:02 18:20 20:23 WBC 12.2 H (3.8-10.6) k/uL Neutrophils # 10.9 H (1.3-7.7) k/uL POC Glucose (mg/dL) 217 H 183 H (70-110) mg/dL 09/26/24 09/26/24 Range/Units 06:01 11:09 WBC (3.8-10.6) k/uL Neutrophils # (1.3-7.7) k/uL POC Glucose (mg/dL) 166 H 229 H (70-110) mg/dL Assessment and Plan Assessment: Status post left total shoulder arthroplasty secondary to severe left shoulder osteoarthrosis Chronic asthma, stable Diabetes mellitus , hemoglobin A1c 5.9 Morbid obesity, BMI 32 Hypertension Hyperlipidemia history of L2-pelvis decompression and fusion,status post T10-L2 posterior stabilization, L1-L2 posterior lateral and interbody fusion. Plan: Continue on current medication regimen, monitoring and symptomatic treatment. Diet adjusted to consistent carb diet with NovoLog sliding scale added to med regimen with close monitoring of Accu-Cheks. Aggressive pulmonary toileting with incentive spirometer reinforced. Pain management, DVT prophylaxis as per primary. Discharge planning in progress for tomorrow as per orthopedic surgery. Follow-up with PCP in 1 week. Thank you for the consult. The impression and plan of care has been dictated as directed. : I performed a history and examination of this patient, discussed the same with the dictator. I agree with the dictator's note ,documented as a scribe. Any additional findings or plans will be noted.
[2024-09-26 16:30] LABS: Glucose,Whole Blood 124 mg/dL (70-110)
[2024-09-26] MEDS: TAMSULOSIN 0.4 MG CAP.ER.24H PO SCH (17:00)
[2024-09-26 20:14] VITALS: PULSE 75
[2024-09-26 20:38] LABS: Glucose,Whole Blood 106 mg/dL (70-110)
[2024-09-27 06:41] LABS: Glucose,Whole Blood 90 mg/dL (70-110)
[2024-09-27 07:00] VITALS: BP 117/61; RESP 16; TEMP 97.6
[2024-09-27 11:14] LABS: Glucose,Whole Blood 64 mg/dL (70-110)
[2024-09-27 11:40] LABS: Glucose,Whole Blood 119 mg/dL (70-110)
--- NOTE | 2024-09-27 12:01 | P.PN ---
Subjective Progress Note Date: 09/27/24 Principal diagnosis: Severe left glenohumeral joint osteoarthrosis Patient was seen at bedside this morning sitting at the edge of the bed was then present to left upper extremity and dressing present over the left shoulder. Patient states her pain is under much better control today than it was yesterday. She says oral medication has been helping control most of the pain. Patient states she has urinated since surgery without issue. No bowel movement yet, however, patient states she has been passing gas. Denies any other issues at this time. Objective - Vital Signs Vital signs: Vital Signs Temp 97.6 F 09/27/24 06:59 Pulse 75 09/27/24 06:59 Resp 16 09/27/24 06:59 BP 117/61 09/27/24 06:59 Pulse Ox 93 L 09/27/24 06:59 FiO2 Intake & Output 09/26/24 09/27/24 09/27/24 18:59 06:59 18:59 Other: # Voids 5 - Exam Left upper extremity: Incision is clean, dry, and intact. The exofin fusion tape is in good condition . There is minimal soft tissue swelling and ecchymosis surrounding the medial and lateral aspects of the incision. Calf is soft, no tenderness with palpation. Plantar flexion, dorsiflexion, EHL, FHL are intact. Sensory exam to light touch throughout the extremity is intact, dorsal pedis pulses 2+. - Labs CBC & Chem 7: 09/25/24 18:20 Labs: Abnormal Lab Results - Last 24 Hours (Table) 09/26/24 09/27/24 09/27/24 Range/Units 16:29 11:13 11:39 POC Glucose (mg/dL) 124 H 64 L 119 H (70-110) mg/dL Assessment and Plan Assessment: 1. Severe left glenohumeral joint osteoarthrosis - Postoperative day 2 status post left total shoulder arthroplasty Plan: 1. Severe left glenohumeral joint osteoarthrosis - left total shoulder arthro plasty performed 09/25/2024. Patient at bedside this morning stable with sling and dressing to left upper extremity. Remain nonweightbearing left upper extremity. Okay to perforfm gentle ROM exercises of left elbow and wrist. Pain medication as needed. Discharge home today 2. Appreciate medical management 3. Pain management - norco 4. Dvt ppx - aspirin 5. GI ppx - senna 6. PT/OT - NWb LUE; maintain in sling 7. Encourage incentive spirometer use 8. Discharge planning - disharge home today Time with Patient: Less than 30
--- NOTE | 2024-09-27 12:06 | P.DS ---
Providers Date of admission: 09/26/24 12:53 Expected date of discharge: 09/27/24 Attending physician: Memo Pulido Consults: 09/25/24 12:05 Consult Physician Routine Consulting Provider: Richard Tinoco Consult Reason/Comments: medical management s/p left total shoulder arthroplasty Do you want consulting provider notified?: Yes Primary care physician: Richard Tinoco Hospital Course: Date of admission: 09/25/2024 Date of discharge: 09/27/2024 Admission diagnosis: Severe left glenohumeral joint osteoarthrosis Discharge diagnosis: Same Attending physician: Dr. Pulido Surgical procedures: Left total shoulder arthroplasty Brief history: Patient is a 74-year-old female with a history of progressive primary left glenohumeral joint osteoarthrosis. At this point patient has failed conservative treatment measures and has opted to proceed with a elective left total shoulder arthroplasty. Hospital course: Details of patient's surgery can be found in operative report. Patient tolerated the procedure well and was subsequently transported to orthopedic floor. Patient's orthopeidc and medical care was provided daily. Patient had daily laboratory tests performed for evaluation of overall blood counts. Patient had daily physical therapy to include strengthening range of motion as well as education with walker ambulation. Patient was treated with aspirin for their postoperative DVT prophylaxis during their inpatient stay. Patient was noted to have a relatively uneventful postoperative course. Patient reported satisfactory pain control with oral pain medications by postoperative day 2. Patient showed satisfactory progress with physical therapy. Patient moved steadily through the program and had no difficulty meeting the goals by postoperative day 2. Given patient's otherwise satisfactory course and having met physical therapy goals, plan is to discharge patient home on postoperative day 2. Discharge condition/disposition: Patient will be discharged home in stable condition. Discharge medications: Instructions are given on resumption of patient's normal daily medications per primary care recommendation, in addition patient will be prescribed [place]; senna; aspirin 325 mg daily 3 weeks. Discharge instructions: 1. Wound care and infection precautions, keep incision dry and covered while showering, no lotions, creams, moisturizers. No soaking, tubs, pools, hottubs. Do not scrub over the incision. 2. Nonweightbearing to the left upper extremity until follow-up. 3. Ice when necessary. Do not exceed 20 minutes per hour with ice pack. 4. Utilize sling to the left upper extremity until seen at first follow up appointment. 5. Nursing care. 6. Perform gentle range of motion exercises of the left elbow and left wrist. Keep left shoulder immobilized. 7. Pain meds and anticoagulants per prescription. 8. Pain medication has potential to cause constipation. Increase oral fluid and fiber intake. Contact primary care provider if you have not had a bowel movement within 48 hours after discharge 9. No anti-inflammatory medication until discussed at first post operative visit, this including Motrin, Aleve, Mobic, Diclofenac. 10. Follow up in office at 2 weeks postop with Elder Evangelista PA-C / Justin Raymundo PA-C 11. Follow up with your primary care doctor 7-10 days after discharge. 12. Contact [facility] with any questions, . Assessment: Severe left glenohumeral joint osteoarthrosis Procedures: left total shoulder arthroplasty Patient Condition at Discharge: Good Plan - Discharge Summary Discharge Rx Participant: No New Discharge Prescriptions: New Sennosides-Docusate Sodium [Senokot-S] 2 each PO HS PRN tab PRN Reason: Constipation Aspirin 325 mg PO DAILY #21 tab HYDROcodone/APAP 7.5-325MG [[place] 7.5-325] 1 tab PO Q6HR PRN #28 tab PRN Reason: Pain Continue dilTIAZem HCL [dilTIAZem HCL 24Hr ER] 360 mg PO DAILY Amitriptyline HCl 50 mg PO HS Atorvastatin [Lipitor] 20 mg PO HS Pantoprazole [Protonix] 40 mg PO DAILY lisinopriL [Zestril] 5 mg PO DAILY L.acidoph,Paracasei, B.lactis [Probiotic] 1 tab PO DAILY Multivit with Calcium,Iron,Min [Women's Multivitamin] 1 tab PO DAILY Ferrous Sulfate [Iron (65 MG Elemental)] 325 mg PO DAILY Calcium Carbonate/Vitamin D3 [Calcium 600 mg-D3 20 mcg (800 unit)] 2 tab PO DAILY Nitroglycerin Sl Tabs [Nitrostat] 0.4 mg SUBLINGUAL Q5M PRN tab PRN Reason: Chest Pain Isosorbide Mononitrate [Isosorbide Mononitrate ER] 60 mg PO BID glipiZIDE 5 mg PO DAILY Levothyroxine Sodium [Synthroid] 50 mcg PO DAILY Cholecalciferol [Vitamin D3 (25 Mcg = 1000 Iu)] 25 mcg PO DAILY Metoprolol Succinate (ER) [Toprol XL] 25 mg PO DAILY Ipratropium-Albuterol Nebulize [Duoneb 0.5 mg-3 mg/3 ml Soln] 3 ml INHALATION QID PRN PRN Reason: Shortness Of Breath Discharge Medication List dilTIAZem HCL [dilTIAZem HCL 24Hr ER] 360 mg PO DAILY 04/07/16 [History] Amitriptyline HCl 50 mg PO HS 01/29/19 [History] Atorvastatin [Lipitor] 20 mg PO HS 04/23/20 [History] Pantoprazole [Protonix] 40 mg PO DAILY 04/23/20 [History] Levothyroxine Sodium [Synthroid] 50 mcg PO DAILY 11/08/21 [History] lisinopriL [Zestril] 5 mg PO DAILY 10/11/22 [History] L.acidoph,Paracasei, B.lactis [Probiotic] 1 tab PO DAILY 10/20/22 [History] Calcium Carbonate/Vitamin D3 [Calcium 600 mg-D3 20 mcg (800 unit)] 2 tab PO DAILY 05/05/23 [History] Cholecalciferol [Vitamin D3 (25 Mcg = 1000 Iu)] 25 mcg PO DAILY 05/05/23 [History] Ferrous Sulfate [Iron (65 MG Elemental)] 325 mg PO DAILY 05/05/23 [History] Multivit with Calcium,Iron,Min [Women's Multivitamin] 1 tab PO DAILY 05/05/23 [History] Nitroglycerin Sl Tabs [Nitrostat] 0.4 mg SUBLINGUAL Q5M PRN tab 10/19/23 [Rx] Isosorbide Mononitrate [Isosorbide Mononitrate ER] 60 mg PO BID 12/26/23 [History] Metoprolol Succinate (ER) [Toprol XL] 25 mg PO DAILY 06/29/24 [History] glipiZIDE 5 mg PO DAILY 06/29/24 [History] Ipratropium-Albuterol Nebulize [Duoneb 0.5 mg-3 mg/3 ml Soln] 3 ml INHALATION QID PRN 09/25/24 [History] Aspirin 325 mg PO DAILY #21 tab 09/27/24 [Rx] HYDROcodone/APAP 7.5-325MG [[place] 7.5-325] 1 tab PO Q6HR PRN #28 tab 09/27/24 [Rx] Sennosides-Docusate Sodium [Senokot-S] 2 each PO HS PRN tab 09/27/24 [Rx] Follow up Appointment(s)/Referral(s): Justin Raymundo PAC [PHYSICIAN SUCTION OPERATOR] - 10/15/24 9:00 am Richard Tinoco MD [Primary Care Provider] - 1 Week Patient Instructions/Handouts: Shoulder Arthroplasty (GEN) Activity/Diet/Wound Care/Special Instructions: Orthopedic Discharge Instructions: 1. Wound care and infection precautions, keep incision dry and covered while showering, no lotions, creams, moisturizers. No soaking, pools, hot tubs. Do not scrub over incision. 2. Nonweightbearing left upper extremity until follow-up. 3. Ice when necessary. Do not exceed 20 minutes per hour with ice pack. 4. Utilize sling to left upper extremity until seen at first follow up appointment. 5. Pain meds and anticoagulants per prescription. 6. Pain medication has potential to cause constipation. Increase oral fluid and fiber intake. Contact primary care provider if you have not had a bowel movement within 48 hours after discharge. 7. No anti-inflammatory medication until discussed at first post operative visit, this including Motrin, Aleve, Mobic, Diclofenac. 8. Follow up in office at 2 weeks postop with Elder Evangelista PA-C / Justin Raymundo PA-C 9. Follow up with your primary care doctor 7-10 days after discharge. 10. Contact [facility] with any questions, . Keep incision clean, dry, intact. While showering, coversteri-strips/incision with Saran wrap. Keep steri-strips on until follow-up appointment in office in 2 weeks. Discharge Disposition: HOME SELF-CARE
--- NOTE | 2024-09-27 12:39 | P.PN ---
Subjective Progress Note Date: 09/27/24 09/27/2024 patient had been hypoglycemic earlier this morning, currently blood sugars 1 teens; states she did not eat breakfast this morning, did not like the food . Sitting up at side of bed currently, feeling better. Reports pain control significantly improved. Janice is a voiding without difficulty, passing flatus. Denies chest pain, palpitations or shortness of breath. Afebrile, Objective - Vital Signs Vital signs: Vital Signs Temp 97.6 F 09/27/24 06:59 Pulse 75 09/27/24 06:59 Resp 16 09/27/24 06:59 BP 117/61 09/27/24 06:59 Pulse Ox 93 L 09/27/24 06:59 FiO2 Intake & Output 09/26/24 09/27/24 09/27/24 18:59 06:59 18:59 Other: # Voids 5 - Exam PHYSICAL EXAM: VITAL SIGNS: [As above] GENERAL: Alert and oriented x 3,sitting up in bed, no acute distress HEENT: Normocephalic, conjunctivae normal. eyes normal. NECK: Supple, no JVD. CARDIOVASCULAR: S1, S2 regular. No murmur RESPIRATION: Unlabored, equal air entry,CTA ABDOMEN: Soft, nondistended, nontender . No guarding. no masses palpable. Positive bowel sounds EXTREMITIES: Left shoulder dressing clean dry and intact, wearing sling, positive radial pulse, fingers freely moving. NERVOUS SYSTEM: Cranial N 2-12 grossly normal. No focal deficits. Skin: Warm and dry, no rash - Labs CBC & Chem 7: 09/25/24 18:20 Labs: Abnormal Lab Results - Last 24 Hours (Table) 09/26/24 09/27/24 09/27/24 Range/Units 16:29 11:13 11:39 POC Glucose (mg/dL) 124 H 64 L 119 H (70-110) mg/dL Assessment and Plan Assessment: Status post left total shoulder arthroplasty secondary to severe left shoulder osteoarthrosis Chronic asthma, stable Diabetes mellitus , hemoglobin A1c 5.9 Morbid obesity, BMI 32 Hypertension Hyperlipidemia history of L2-pelvis decompression and fusion,status post T10-L2 posterior stabilization, L1-L2 posterior lateral and interbody fusion. Plan: Continue on current medication regimen, monitoring and symptomatic treatment. Discharge planning in progress for today as per orthopedic surgery. Patient's BP mildly soft, advised to hold off on RAUDEL inhibitor until systolic blood pressures in the 120s.continue aggressive pulmonary toileting with i ncentive spirometer reinforced. Pain management, DVT prophylaxis as per primary. Medically cleared for DC. follow-up with PCP in 1 week. The impression and plan of care has been dictated as directed. : I performed a history and examination of this patient, discussed the same with the dictator. I agree with the dictator's note ,documented as a scribe. Any additional findings or plans will be noted.
== END 2024-09-27 13:53 | disposition home or self-care (01) | DRG 483 ==
LOC: OR 08:19 → 4SSUR 12:17 → OR 09-26 12:53
PROVIDERS: ADMIT Orthopaedic Surgery; ATTEND Orthopaedic Surgery
PROC: 0RRK0JZ Replacement of Left Shoulder Joint with Synthetic Substitute, Open Approach (ICD-10-PCS; principal; 2024-09-25 10:05)
DX: M19.012 Primary osteoarthritis, left shoulder (principal); E03.9 Hypothyroidism, unspecified; E11.649 Type 2 diabetes mellitus with hypoglycemia without coma; E66.01 Morbid (severe) obesity due to excess calories; E78.5 Hyperlipidemia, unspecified; I10 Essential (primary) hypertension; I25.10 Atherosclerotic heart disease of native coronary artery without angina pectoris; G47.30 Sleep apnea, unspecified; K21.9 Gastro-esophageal reflux disease without esophagitis; M51.369 Other intervertebral disc degeneration, lumbar region without mention of lumbar back pain or lower extremity pain; I25.2 Old myocardial infarction; J45.20 Mild intermittent asthma, uncomplicated; M81.0 Age-related osteoporosis without current pathological fracture; Z68.32 Body mass index [BMI] 32.0-32.9, adult; Z79.84 Long term (current) use of oral hypoglycemic drugs; Z79.890 Hormone replacement therapy; Z79.899 Other long term (current) drug therapy; Z86.73 Personal history of transient ischemic attack (TIA), and cerebral infarction without residual deficits; Z87.442 Personal history of urinary calculi; Z96.611 Presence of right artificial shoulder joint; Z96.651 Presence of right artificial knee joint; Z98.1 Arthrodesis status
CPT/HCPCS: 64415; 83036; 85025

== ENCOUNTER 2024-09-27 17:00 | Emergency (ER) | payer MEDICARE, OTHER ==
--- NOTE | 2024-09-27 17:55 | ED ---
General Adult HPI - General Chief complaint: Fever Stated complaint: JACOB Time Seen by Provider: 09/27/24 17:10 Source: patient, EMS, RN notes reviewed, old records reviewed Mode of arrival: EMS Limitations: no limitations - History of Present Illness Initial comments: Is a 74-year-old female who presents to the emergency department stating that she had shoulder surgery 2 days ago and all of a sudden approximate hour prior to arrival she started shaking and became very anxious and decided come to be seen in the emergency department. Patient states she think she is a little short of breath but she is not sure if it is just her nerves. Patient denies any chest pain palpitation. Patient is unaware that she had a fever but she has 102 fever here. Patient denies any abdominal pain patient states she is not nauseous and has had no vomiting or diarrhea. Patient denies any dysuria hematuria urinary frequency. Patient has any back pain. Patient denies any sore throat. Patient [place] any exposure to COVID that she knows of - Related Data Home Medications Medication Instructions Recorded Confirmed dilTIAZem HCL [dilTIAZem HCL 24Hr 360 mg PO DAILY 04/07/16 09/25/24 ER] Amitriptyline HCl 50 mg PO HS 01/29/19 09/25/24 Atorvastatin [Lipitor] 20 mg PO HS 04/23/20 09/25/24 Pantoprazole [Protonix] 40 mg PO DAILY 04/23/20 09/25/24 Levothyroxine Sodium [Synthroid] 50 mcg PO DAILY 11/08/21 09/25/24 lisinopriL [Zestril] 5 mg PO DAILY 10/11/22 09/25/24 L.acidoph,Paracasei, B.lactis 1 tab PO DAILY 10/20/22 09/25/24 [Probiotic] Calcium Carbonate/Vitamin D3 2 tab PO DAILY 05/05/23 09/25/24 [Calcium 600 mg-D3 20 mcg (800 unit)] Cholecalciferol [Vitamin D3 (25 25 mcg PO DAILY 05/05/23 09/25/24 Mcg = 1000 Iu)] Ferrous Sulfate [Iron (65 MG 325 mg PO DAILY 05/05/23 09/25/24 Elemental)] Multivit with Calcium,Iron,Min 1 tab PO DAILY 05/05/23 09/25/24 [Women's Multivitamin] Isosorbide Mononitrate [Isosorbide 60 mg PO BID 12/26/23 09/25/24 Mononitrate ER] Metoprolol Succinate (ER) [Toprol 25 mg PO DAILY 06/29/24 09/25/24 XL] glipiZIDE 5 mg PO DAILY 06/29/24 09/25/24 Ipratropium-Albuterol Nebulize 3 ml INHALATION QID PRN 09/25/24 09/25/24 [Duoneb 0.5 mg-3 mg/3 ml Soln] Previous Rx's Medication Instructions Recorded Nitroglycerin Sl Tabs [Nitrostat] 0.4 mg SUBLINGUAL Q5M PRN tab 10/19/23 Aspirin 325 mg PO DAILY #21 tab 09/27/24 HYDROcodone/APAP 7.5-325MG [[place] 1 tab PO Q6HR PRN #28 tab 09/27/24 7.5-325] Sennosides-Docusate Sodium 2 each PO HS PRN tab 09/27/24 [Senokot-S] Allergies Allergy/AdvReac Type Severity Reaction Status Date / Time levofloxacin [From Levaquin] Allergy Rapid Verified 09/25/24 08:40 Heart Rate Review of Systems ROS Statement: Those systems with pertinent positive or pertinent negative responses have been documented in the HPI. ROS Other: All systems not noted in ROS Statement are negative. Past Medical History Past Medical History: Asthma, Coronary Artery Disease (CAD), CVA/TIA, Diabetes Mellitus, GERD/Reflux, Hyperlipidemia, Hypertension, Myocardial Infarction ([place]), Musculoskeletal Disorder, Sleep Apnea/CPAP/BIPAP, Thyroid Disorder Additional Past Medical History / Comment(s): IGA RESPONSE TRIGGERS ASTHMA, TRIGGER FINGER, LUMBAR DDD, TIA 2012- NO RESIDUAL, USES C-PAP, HX LUMBAR FX AFTER FALL, HX KIDNEY STONES, OSTEOPOROSIS, HYPOTHYROID; HAS DEXCOM G7 CONTINUOUS GLUCOSE MONITOR. Last Myocardial Infarction Date:: 09/2005 History of Any Multi-Drug Resistant Organisms: None Reported Past Surgical History: Appendectomy, Back Surgery, Breast Surgery, Cholecystectomy, Heart Catheterization, Joint Replacement, Orthopedic Surgery Additional Past Surgical History / Comment(s): LT KNEE ARTHROSCOPY. LT CTR. HX KIDNEY STONE REMOVAL, JOSE ALFREDO LASER EYE SURG. PAIN CLINIC PROCEDURES, BREAST BX LT BREAST-BENIGN, right knee replacement, lithotripsy, BILAT CATARACTS REMOVED WITH LENS IMPLANTS, COLONOSCOPY, SPINAL FUSION, RT SHOULDER REPLACEMENT Past Anesthesia/Blood Transfusion Reactions: No Reported Reaction Additional Past Anesthesia/Blood Transfusion Reaction / Comment(s): WAS ON A VENT FOR 24 HOURS AFTER SPINAL FUSION JANUARY 2022. NO HX BLOOD TRANSFUSION Past Psychological History: No Psychological Hx Reported Smoking Status: Never smoker Past Alcohol Use History: None Reported Past Drug Use History: None Reported - Past Family History Mother Family Medical History: Cancer Additional Family Medical History / Comment(s): FROM THYROID [place] Father Family Medical History: Cancer Additional Family Medical History / Comment(s): FROM STOMACH [place], HX ALCOHOLISM General Exam - General Exam Comments Initial Comments: GENERAL: Patient is well-developed and well-nourished. Patient is nontoxic and well- hydrated and is in mild distress. ENT: Neck is soft and supple. No significant lymphadenopathy is noted. Oropharynx is clear. Moist mucous membranes. EYES: The sclera were anicteric and conjunctiva were pink and moist. Extraocular movements were intact and pupils were equal round and reactive to light. Eyelids were unremarkable. PULMONARY: Unlabored respirations. Good breath sounds bilaterally. No audible rales rhonchi or wheezing was noted. CARDIOVASCULAR: There is a regular rate and rhythm without any murmurs gallops or rubs. ABDOMEN: Soft and nontender with normal bowel sounds. SKIN: Skin is clear with no lesions or rashes and otherwise unremarkable. NEUROLOGIC: Patient is alert and oriented x3. Cranial nerves II through XII are grossly intact. Motor and sensory are also intact. Normal speech, volume and content. Symmetrical smile. MUSCULOSKELETAL: Normal extremities with adequate strength and full range of motion. LYMPHATICS: No significant lymphadenopathy is noted PSYCHIATRIC: Normal psychiatric evaluation. Limitations: no limitations Course Vital Signs 09/27/24 09/27/24 09/27/24 17:08 18:07 19:22 Temperature 102.2 F H 102.2 F H Pulse Rate 110 H 110 H 116 H Respiratory 26 H 20 22 Rate Blood Pressure 150/99 148/86 114/55 O2 Sat by Pulse 95 92 L 93 L Oximetry 09/27/24 09/27/24 20:09 20:30 Temperature Pulse Rate 114 H 102 H Respiratory 22 Rate Blood Pressure O2 Sat by Pulse 94 L 95 Oximetry Medical Decision Making - Medical Decision Making Was pt. sent in by a medical professional or institution (Dr., PA, MARKET CONSULTANT, urgent care, hospital, or fdc...) When possible be specific @ -No Did you speak to anyone other than the patient for history (EMS, parent, family, police, friend...)? What history was obtained from this source @ -No Did you review nursing and triage notes (agree or disagree)? Why? @ -I reviewed and agree with nursing and triage notes Were old charts reviewed (outside hosp., previous admission, EMS record, old EKG, old radiological studies, urgent care reports/EKG's, fdc records)? Report findings @ -No old charts were reviewed Differential Diagnosis? @ -Differential Fever: Pneumonia, viral URI, endocarditis, myocarditis, pericarditis, otitis, sinusitis, peritonsillar Abscess, retropharyngeal Abscess, epiglottitis, peritonitis, appendicitis, Anisa cystitis, diverticulitis, hepatitis, colitis, UTI, PID, TOA, pyelonephritis, prostatitis, epididymitis, meningitis, encephalitis, pulmonary embolism, CVA, thyroid storm, pancreatitis, adrenal crisis, cavernous sinus thrombosis, this is not meant to be an all-inclusive list. EKG interpreted by me (3pts min.). @ -As above X-rays interpreted by me (1pt min.). @ -X-ray shows no acute normality CT interpreted by me (1pt min.). @ -None done U/S interpreted by me (1pt. min.). @ -None done What testing was considered but not performed or refused? (CT, X-rays, U/S, labs)? Why? @ -None What meds were considered but not given or refused? Why? @ -None Did you discuss the management of the patient with other professionals (professionals i.e. [employer] Knott, MARKET CONSULTANT, lab, RT, psych nurse, social services specialist, divisional human resources director, teacher, child support case officer, caseworker intake)? Give summary @ -No Was smoking cessation discussed for >3mins.? @ -No Was critical care preformed (if so, how long)? @ -No Were there social determinants of health that impacted care today? How? (Homelessness, low income, unemployed, alcoholism, drug addiction, transportation, low edu. Level, literacy, decrease access to med. care, group home, rehab)? @ -No Was there de-escalation of care discussed even if they declined (Discuss DNR or withdrawal of care, Hospice)? DNR status @ -No What co-morbidities impacted this encounter? (DM, HTN, Smoking, COPD, CAD, Cancer, CVA, ARF, Chemo, Hep., AIDS, mental health diagnosis, sleep apnea, morbid obesity)? @ -None Was patient admitted / discharged? Hospital course, mention meds given and route, prescriptions, significant lab abnormalities, going to OR and other pertinent info. @ -Patient received Motrin Tylenol in the emergency department. Chest x-ray showed no acute normality. Viral screen showed no COVID no influenza no RSV. Patient felt much better after the Tylenol Motrin brought her fever down. Undiagnosed new problem with uncertain prognosis? @ -No Drug Therapy requiring intensive monitoring for toxicity (Heparin, Nitro, Insulin, Cardizem)? @ -No Were any procedures done? @ -No Diagnosis/symptom? @ -Viral syndrome Acute, or Chronic, or Acute on Chronic? @ -Acute Uncomplicated (without systemic symptoms) or Complicated (systemic symptoms)? @ -Uncomplicated Side effects of treatment? @ -No Exacerbation, Progression, or Severe Exacerbation? @ -No Poses a threat to life or bodily function? How? (Chest pain, [place], [place], pneumonia, PE, COPD, DKA, ARF, appy, cholecystitis, CVA, Diverticulitis, Homicidal, Suicidal, threat to staff... and all critical care pts) @ -No - Lab Data Result diagrams: 09/27/24 17:48 09/27/24 17:48 Lab Results 09/27/24 09/27/24 09/27/24 Range/Units 17:45 17:48 17:48 WBC 12.9 H (3.8-10.6) k/uL RBC 3.97 (3.80-5.40) m/uL Hgb 11.4 (11.4-16.0) gm/dL Hct 35.1 (34.0-46.0) % MCV 88.5 (80.0-100.0) fL MCH 28.7 (25.0-35.0) pg MCHC 32.4 (31.0-37.0) g/dL RDW 15.1 (11.5-15.5) % Plt Count 159 (150-450) k/uL MPV 8.5 Neutrophils % 86 % Lymphocytes % 9 % Monocytes % 3 % Eosinophils % 1 % Basophils % 0 % Neutrophils # 11.1 H (1.3-7.7) k/uL Lymphocytes # 1.2 (1.0-4.8) k/uL Monocytes # 0.4 (0-1.0) k/uL Eosinophils # 0.2 (0-0.7) k/uL Basophils # 0.0 (0-0.2) k/uL Sodium 140 (137-145) mmol/L Potassium 4.2 (3.5-5.1) mmol/L Chloride 106 (98-107) mmol/L Carbon Dioxide 25 (22-30) mmol/L Anion Gap 9 mmol/L BUN 21 H (7-17) mg/dL Creatinine 1.07 H (0.52-1.04) mg/dL Est GFR (CKD-EPI)AfAm 60 (>60 ml/min/1.73 sqM) Est GFR (CKD-EPI)NonAf 52 (>60 ml/min/1.73 sqM) Glucose 100 H (74-99) mg/dL Calcium 9.0 (8.4-10.2) mg/dL Total Bilirubin 0.5 (0.2-1.3) mg/dL AST 25 (14-36) U/L ALT 11 (4-34) U/L Alkaline Phosphatase 90 (38-126) U/L Total Protein 6.6 (6.3-8.2) g/dL Albumin 3.9 (3.5-5.0) g/dL Urine Color Urine Appearance (Clear) Urine pH (5.0-8.0) Ur Specific [place] (1.001-1.035) Urine Protein (Negative) Urine Glucose (UA) (Negative) Urine Ketones (Negative) Urine Blood (Negative) Urine Nitrite (Negative) Urine Bilirubin (Negative) Urine Urobilinogen (<2.0) mg/dL Ur Leukocyte Esterase (Negative) Urine RBC (0-5) /hpf Urine WBC (0-5) /hpf Urine Mucus (None) /hpf Influenza Type A (PCR) Not Detected (Not Detectd) Influenza Type B (PCR) Not Detected (Not Detectd) RSV (PCR) Not Detected (Not Detectd) SARS-CoV-2 (PCR) Not Detected (Not Detectd) 09/27/24 Range/Units 19:52 WBC (3.8-10.6) k/uL RBC (3.80-5.40) m/uL Hgb (11.4-16.0) gm/dL Hct (34.0-46.0) % MCV (80.0-100.0) fL MCH (25.0-35.0) pg MCHC (31.0-37.0) g/dL RDW (11.5-15.5) % Plt Count (150-450) k/uL MPV Neutrophils % % Lymphocytes % % Monocytes % % Eosinophils % % Basophils % % Neutrophils # (1.3-7.7) k/uL Lymphocytes # (1.0-4.8) k/uL Monocytes # (0-1.0) k/uL Eosinophils # (0-0.7) k/uL Basophils # (0-0.2) k/uL Sodium (137-145) mmol/L Potassium (3.5-5.1) mmol/L Chloride (98-107) mmol/L Carbon Dioxide (22-30) mmol/L Anion Gap mmol/L BUN (7-17) mg/dL Creatinine (0.52-1.04) mg/dL Est GFR (CKD-EPI)AfAm (>60 ml/min/1.73 sqM) Est GFR (CKD-EPI)NonAf (>60 ml/min/1.73 sqM) Glucose (74-99) mg/dL Calcium (8.4-10.2) mg/dL Total Bilirubin (0.2-1.3) mg/dL AST (14-36) U/L ALT (4-34) U/L Alkaline Phosphatase (38-126) U/L Total Protein (6.3-8.2) g/dL Albumin (3.5-5.0) g/dL Urine Color Light Yellow Urine Appearance Clear (Clear) Urine pH 5.5 (5.0-8.0) Ur Specific [place] 1.016 (1.001-1.035) Urine Protein Negative (Negative) Urine Glucose (UA) Negative (Negative) Urine Ketones Negative (Negative) Urine Blood Small H (Negative) Urine Nitrite Negative (Negative) Urine Bilirubin Negative (Negative) Urine Urobilinogen <2.0 (<2.0) mg/dL Ur Leukocyte Esterase Moderate H (Negative) Urine RBC 18 H (0-5) /hpf Urine WBC 21 H (0-5) /hpf Urine Mucus Rare H (None) /hpf Influenza Type A (PCR) (Not Detectd) Influenza Type B (PCR) (Not Detectd) RSV (PCR) (Not Detectd) SARS-CoV-2 (PCR) (Not Detectd) Disposition Clinical Impression: Viral infection Disposition: HOME SELF-CARE Instructions (If sedation given, give patient instructions): Fever in Adults (ED), Viral Syndrome (ED) Additional Instructions: Patient can take Tylenol every 4 hours as needed for fever. Patient should return if there are any new or worsening symptoms Is patient prescribed a controlled substance at d/c from ED?: No Referrals: Richard Tinoco MD [Primary Care Provider] - 1-2 days Time of Disposition: 20:20
[2024-09-27] MEDS: ACETAMINOPHEN TAB 500 MG TAB PO STA (18:03)
[2024-09-27] MEDS: HYDROmorphone 0.5 MG/0.5 ML SYRINGE IVP STA (18:03)
[2024-09-27] MEDS: IBUPROFEN 600 MG TAB PO STA (18:04)
[2024-09-27 18:06] LABS: Basophils % (A) 0 %; Eosinophils # (A) 0.2 k/uL (0-0.7); Eosinophils % (A) 1 %; HCT 35.1 % (34.0-46.0); HGB 11.4 gm/dL (11.4-16.0); Lymphocytes # (A) 1.2 k/uL (1.0-4.8); Lymphocytes % (A) 9 %; MCH 28.7 pg (25.0-35.0); MCHC 32.4 g/dL (31.0-37.0); MCV 88.5 fL (80.0-100.0); Mean Platelet Volume 8.5; Monocytes # (A) 0.4 k/uL (0-1.0); Monocytes % (A) 3 %; Neutrophils # (A) 11.1 k/uL (1.3-7.7); Neutrophils % (A) 86 %; Platelet Count 159 k/uL (150-450); RBC 3.97 m/uL (3.80-5.40); RDW 15.1 % (11.5-15.5); WBC 12.9 k/uL (3.8-10.6)
[2024-09-27 18:18] LABS: ALT 11 U/L (4-34); AST 25 U/L (14-36); African American GFR (CKD) 60 (>60 ml/min/1.73 sqM); Albumin 3.9 g/dL (3.5-5.0); Alkaline Phosphatase 90 U/L (38-126); Anion Gap 9 mmol/L; Blood Urea Nitrogen 21 mg/dL (7-17); Carbon Dioxide 25 mmol/L (22-30); Chloride 106 mmol/L (98-107); Glucose 100 mg/dL (74-99); Non-African American GFR(CKD) 52 (>60 ml/min/1.73 sqM); Potassium 4.2 mmol/L (3.5-5.1); Sodium 140 mmol/L (137-145); Total Bilirubin 0.5 mg/dL (0.2-1.3); Total Protein 6.6 g/dL (6.3-8.2)
--- NOTE | 2024-09-27 18:52 | XR ---
EXAMINATION TYPE: XR chest 2V DATE OF EXAM: 09/27/2024 COMPARISON: 10/18/2023 INDICATION: Difficulty breathing, status post left shoulder replacement, complains of chills TECHNIQUE: Frontal and lateral views of the chest are obtained. FINDINGS: The heart size is normal. The pulmonary vasculature is normal. The lungs are clear. Bilateral humeral head prostheses are evident. There has been interval thoracic fixation surgery IMPRESSION: 1. No acute pulmonary process. [facility], Workstation: [facility], 09/27/2024 6:50 PM
[2024-09-27 19:23] VITALS: RESP 22
[2024-09-27 20:04] LABS: Appearance,Urine Clear (Clear); Bilirubin,Urine Negative (Negative); Blood,Urine Small (Negative); Color,Urine Light Yellow; Glucose,Urine (UA) Negative (Negative); Ketones,Urine Negative (Negative); Leukocyte Esterase,Urine Moderate (Negative); Mucus,Urine Rare /hpf; Nitrite,Urine Negative (Negative); PH, Urine 5.5 (5.0-8.0); Protein,Urine Negative (Negative); RBC,Urine 18 /hpf (0-5); Specific Gravity,Urine 1.016 (1.001-1.035); Urobilinogen,Urine <2.0 mg/dL (<2.0); WBC,Urine 21 /hpf (0-5)
[2024-09-27] MEDS: cefTRIAXone IN SWFI 1,000 MG/10 ML SYRINGE IVP STA (20:19)
[2024-09-27 20:37] VITALS: TEMP 100.1
[2024-09-27 20:40] VITALS: PULSE 100
[2024-09-27 21:04] VITALS: BP 111/78
== END 2024-09-27 21:04 | disposition home or self-care (01) ==
LOC: EC 17:00
CPT/HCPCS: 36415; 71046; 80053; 81001; 85025; 87636; 96374; 96375; 99284

== ENCOUNTER → 2024-11-07 | Outpatient (CLI) | payer MEDICARE, OTHER ==
--- NOTE | 2024-11-08 08:14 | MR ---
EXAMINATION TYPE: MR cervical spine wo con DATE OF EXAM: 11/07/2024 8:13 PM COMPARISON: None. CLINICAL INDICATION: Female, 74 years old with history of M47.812 SPONDYLOSIS W/O MYELOPATHY OR RADIC UM54.20, Neck pain into both arms, Numbness in arms jez. when driving TECHNIQUE: Multiplanar multiecho imaging on a 3.0 Yara magnet is performed through the cervical spin e. IV Contrast: mL (None, if empty) FINDINGS: The craniovertebral junction is normal. Vertebral body alignment is a kyphosis in the mid cervical spine centered at approximately C4-5. C7-T1: No focal disc herniation or significant disc bulge is evident. No spinal canal stenosis or n eural foraminal stenosis is present. C6-7: Endplate changes are present with mild anterior thecal sac impression. This comes in close appr oximation spinal cord. No AP spinal canal stenosis. Right foraminal narrowing month.. C5-6: Endplate changes are present with loss of disc height. There is moderate anterior thecal sac fl attening. No AP spinal canal stenosis. Left foraminal stenosis is present. No cord contact or cord de formity evident.. C4-5: Endplate spurring associated disc material is moderate anterior thecal sac flattening. Cord con tact is present. Cord deformity is not identified. No AP spinal canal stenosis. Moderate bilateral fo raminal stenosis is present. C3-4: Mild endplate changes and mild anterior thecal sac flattening. No cord contact or spinal canal stenosis. C2-3: Small central extending to the left paracentral region subligamentous disc herniation produces mild anterior thecal sac compression. No cord or spinal canal stenosis is present. IMPRESSION: 1. Multilevel degenerative disc changes greatest C4-5 C5-6 with moderate anterior sac compression rat e 2. Some mild cord contact may be present at the C4-5 level. 3. Tiny subligamentous disc herniation C2-3 mild anterior thecal sac compression [facility], , 11/08/2024 8:12 AM
--- NOTE | 2024-11-09 21:49 | CT ---
EXAMINATION TYPE: CT cervical spine wo con DATE OF EXAM: 11/07/2024 5:50 PM COMPARISON: 07/10/2022 CLINICAL INDICATION: Female, 74 years old with history of M47.812 SPONDYLOSIS W/O MYELOPATHY OR RADIC UM54.20, Pt complaining of arms falling asleep while driving as well as some pain in neck and shoulde rs., TECHNIQUE: CT of the cervical spine is performed in the axial plane at 2 mm thick sections. Reconstr ucted images in the coronal, and sagittal plane are reviewed on the computer. Contrast used: mL of , (none if empty) Oral contrast used: (none if empty) CT DLP: 441.6 mGycm, Automated exposure control for dose reduction was used. FINDINGS: No acute fractures are evident. There is a cervical kyphosis centered at C5. There is loss of disc height through the C4-5 C5-6 and C6-7 disc levels. Endplate spurring is present C5-6 C6-7. Vertebral body heights are preserved. No spinal canal stenosis is evident There is moderate narrowing of the left C4-5 foramen. Moderate narrowing of the left C5-6 foramen is present. Mild bilateral narrowing of the C6-7 foramen is present. There may be slight progression of degenerative disc change within the cervical spine IMPRESSION: 1. Degenerative disc changes and kyphosis centered at the C4-C6 levels 2. Left-sided foraminal narrowing discussed above mid cervical spine [facility], , 11/09/2024 9:47 PM
== END | disposition home or self-care (01) ==
LOC: RADCTMAIN 17:08
PROVIDERS: ATTEND Orthopaedic Surgery
DX: M50.21 Other cervical disc displacement, high cervical region (principal); M47.812 Spondylosis without myelopathy or radiculopathy, cervical region; M99.71 Connective tissue and disc stenosis of intervertebral foramina of cervical region
CPT/HCPCS: 72125; 72141

== ENCOUNTER → 2024-12-03 | Outpatient (CLI) | payer MEDICARE, OTHER ==
--- NOTE | 2024-12-03 10:37 | MM ---
Reason for Exam: Screening (asymptomatic). Last screening mammogram was performed 12 month(s) ago. Patient History: Menarche at age 17. First Full-Term at age 26. Left ovary removed at age 36. Right ovary removed at age 36. Hysterectomy at age 36. Postmenopausal. Estrogen for 12 years from age 36 until age 48. Progesterone for 12 years from age 36 until age 48. Hormonal Contraceptives for 4 years from age 22 until age 26. 2002, Benign Excisional Biopsy on the left side. 04/25/2003, High risk Stereotactic Core Biopsy on the left side. 05/06/2000, Benign Stereotactic Core Biopsy on the left side. Risk Values: Tyra 5 year model risk: 2.7%. NCI Lifetime model risk: 6.5%. Prior Study Comparison: 11/23/2021 Bilateral Screening Mammogram, [facility]. 11/25/2022 Bilateral MG 3D screening mammo w/cad, [facility]. 11/29/2023 Bilateral MG 3D screening mammo w/cad, [facility]. Tissue Density: There are scattered areas of fibroglandular density. Findings: Analyzed By CAD. Left breast biopsy clip. Right breast: There is no suspicious group of microcalcifications or new suspicious mass. Left breast: There is no suspicious group of microcalcifications or new suspicious mass. Overall Assessment: Benign, BI-RAD 2 Management: Screening Mammogram of both breasts in [address] [facility] will attempt to contact patient to return for supplemental views and ultrasound if indicated. Patient should continue monthly self-breast exams. A clinical breast exam by your physician is recommended on an annual basis. This exam should not preclude additional follow-up of suspicious palpable abnormalities. Note on Tyra scores and lifetime risk: 1. A Tyra score greater than 3% is considered moderate risk. If this is the case, consider specialist referral to assess eligibility for a risk reducing agent. 2. If overall lifetime risk for the development of breast cancer is 20% or higher, the patient may qualify for future screening with alternating mammogram and breast MRI. [facility], , 12/03/2024 10:34 AM. Electronically signed and approved by: Chad Kirby DO
== END | disposition home or self-care (01) ==
LOC: RADMAMWWP 09:36
PROVIDERS: ATTEND Surgery
DX: Z12.31 Encounter for screening mammogram for malignant neoplasm of breast (principal); Z90.722 Acquired absence of ovaries, bilateral; Z78.0 Asymptomatic menopausal state; R92.323 Mammographic fibroglandular density, bilateral breasts; Z98.82 Breast implant status
CPT/HCPCS: 77063; 77067

== ENCOUNTER → 2024-12-07 | Outpatient (CLI) | payer MEDICARE, OTHER ==
[2024-12-07 11:31] VITALS: BP 118/65; PULSE 68; RESP 17; TEMP 98.1
--- NOTE | 2024-12-07 11:49 | P.PN ---
Subjective Progress Note Date: 12/07/24 Principal diagnosis: fibrocystic breast disease Principal diagnosis: fibrocystic breast disease The patient is a 74-year-old white female who comes for breast examination. At this time she has no complaints related to her breast. She has no masses in her breasts. No nipple discharge or skin changes. She has no recent history of any trauma or infection of the breast. She is not complaing of any new lumps masses or nodules in her breast. Her last bilateral mammogram was 12-03-24 this was benign BIRAD 2. Tyra Risk 2.7 Patient has declined chemo prophylaxis. Caffeine: 2 cups of coffee per day Nicotine: Negative Chocolate: Negative Hormones: Negative Family History: mother: thyroid cancer father: stomach cancer Hormonal History: menarche: 17 : 2, 2 children, breast fed: one, first at 27 menopause: hysterectomy at 41, cyst on ovaries, took both ovaries as well BCP: 8 years hormones: 10 years, estrogen Past Surgical History: 1. hysterectomy and bilateral oophrectomy 2. spinal fusion 3. appy 4. gallbladder 5. ankle fusion 6. breast biopsy 7. bladder surgery 8. heart cath 9. left total knee replacement 10. kidney stone/ lithotripsy 11. right total knee replacement 12. cataract surgery 13. spinal fusion L2 to S1 14. kidney stones removed in October 2022 15. right shoulder replacement 16. left shoulder replacement Past Medical History: 1. hypothyroid 2. HTN 3. HINI flu in hospital 4. diabetic/ on metformin 5. back pain/ sciatica Social History smoke: none alcohol; none drugs: none Objective - Vital Signs Vital signs: Vital Signs Temp 98.1 F 12/07/24 11:29 Pulse 68 12/07/24 11:29 Resp 17 12/07/24 11:29 BP 118/65 12/07/24 11:29 Pulse Ox 96 12/07/24 11:29 FiO2 Intake & Output 12/06/24 12/07/24 12/07/24 18:59 06:59 18:59 Weight 75.75 kg - Constitutional General appearance: Present: cooperative - EENT Eyes: Present: EOMI ENT: Present: hearing grossly normal - Neck Neck: Present: normal ROM - Respiratory Respiratory: bilateral: CTA - Cardiovascular Rhythm: regular Heart sounds: normal: S1, S2 - Integumentary Integumentary: Present: normal turgor - Musculoskeletal Musculoskeletal: Present: gait normal - Psychiatric Psychiatric: Present: A&O x's 3, appropriate affect, intact judgment & insight - Additional findings Additional findings: Breast Exam: BRA: 38C inspection: bilateral grade 3 ptosis palpation: right breast: multi positional exam fibrocystic changes no discrete dominant masses or nodules of concern Right axilla: No adenopathy of concern Left breast: Multi-positional exam fibrocystic changes no discrete dominant masses or nodules of concern; well healed scar left breast Left axilla: No adenopathy of concern Assessment and Plan Assessment: Impression: 1. hypothyroid 2. HTN 3. HINI flu in hospital 6 years ago 4. diabetic/ on metformin 5. back pain/ sciatica 6. Fibrocystic breast changes 7. Recent bilateral mammogram benign BIRADS 2 done 12-03-24 Plan: 1. Repeat bilateral mammogram in 1 year with physician exam at that time 2. Questions or concerns patient to follow up sooner CC: Dr. Tinoco
== END ==
LOC: WWCWWP 10:30
PROVIDERS: ATTEND Surgery
DX: M54.30 Sciatica, unspecified side (principal); I10 Essential (primary) hypertension; N60.19 Diffuse cystic mastopathy of unspecified breast; E11.9 Type 2 diabetes mellitus without complications; R92.8 Other abnormal and inconclusive findings on diagnostic imaging of breast; E03.9 Hypothyroidism, unspecified; Z88.1 Allergy status to other antibiotic agents

== ENCOUNTER → 2025-01-18 | Outpatient (CLI) | payer MEDICARE, OTHER ==
[2025-01-18 10:58] LABS: INR 0.9 (<1.2); Partial Thromboplastin Time 23.2 sec (22.0-30.0); Prothrombin Time 10.4 sec (10.0-12.5)
[2025-01-18 15:45] LABS: Basophils # (A) 0.07 X 10*3/uL (0.00-0.10); Basophils % (A) 1.1 %; Eosinophils # (A) 0.13 X 10*3/uL (0.04-0.35); Eosinophils % (A) 2.1 %; HGB 14.1 g/dL (12.0-15.0); Lymphocytes # (A) 1.52 X 10*3/uL (0.90-5.00); MCV 90.3 FL (80.0-97.0); Mean Platelet Volume 11.8 FL (9.5-12.2); Monocytes # (A) 0.37 X 10*3/uL (0.20-1.00); Monocytes % (A) 5.8 %; NRBC Per 100 WBC 0 X 10*3/uL (0.00-0.01); Neutrophils # (A) 4.22 X 10*3/uL (1.80-7.70); Neutrophils % (A) 66.5 %; Platelet Count 223 X 10*3/uL (140-440); RBC 4.87 X 10*6/uL (4.10-5.20); RDW 14.1 % (11.5-14.5); WBC 6.34 X 10*3/uL (4.50-10.00)
[2025-01-18 15:48] LABS: Chol/HDL Ratio 2.58 Ratio
[2025-01-18 15:49] LABS: ALT 23 U/L (8-44); AST 30 U/L (13-35); Albumin 4.3 g/dL (3.8-4.9); Albumin/Globulin Ratio 1.54 Ratio (1.60-3.17); Alkaline Phosphatase 115 U/L (41-126); Blood Urea Nitrogen 13.2 mg/dL (9.0-27.0); Calcium 9.5 mg/dL (8.7-10.3); Carbon Dioxide 25.2 mmol/L (21.6-31.8); Chloride 106 mmol/L (96-109); Globulin 2.8 g/dL (1.6-3.3); Glucose 103 mg/dL (70-110); LDL Cholesterol,Calculated 55.8 mg/dL (0.0-131.0); Potassium 4.6 mmol/L (3.5-5.5); Sodium 141 mmol/L (135-145); Total Bilirubin 0.5 mg/dL (0.3-1.2); Total Protein 7.1 g/dL (6.2-8.2)
== END | disposition home or self-care (01) ==
LOC: LABPAT 09:53
PROVIDERS: ATTEND Orthopaedic Surgery
DX: Z01.812 Encounter for preprocedural laboratory examination (principal); Z22.322 Carrier or suspected carrier of Methicillin resistant Staphylococcus aureus; M50.00 Cervical disc disorder with myelopathy, unspecified cervical region
CPT/HCPCS: 80053; 80061; 82306; 84443; 85025; 85610; 85730; 86850; 86900; 86901; 87070

== ENCOUNTER → 2025-01-18 | Outpatient (CLI) | payer MEDICARE, OTHER | END | disposition home or self-care (01) | LOC: LABWHC1 09:57 | PROVIDERS: ATTEND Family Medicine | DX: Z53.9 Procedure and treatment not carried out, unspecified reason (principal) ==

== ENCOUNTER 2025-01-25 10:53 | Day surgery (SDC) | payer MEDICARE, OTHER ==
--- NOTE | 2025-01-25 07:26 | P.HPOR ---
History of Present Illness H&P Date: 01/18/25 .D:Date: 01/18/25 : 01:26pm .T:Title: *PRE-OP H1 [facility] [address] [place] [address]| PROVIDER: JENNIFER DOMINGUEZ DO CLINICAL SUMMARY: *Ms. Greene, a 74-year-old female, presented to [facility] on 01/18/25 for pre-operative evaluation preceding scheduled C4-7 ACDF. Patient reported cervical pain (VAS 4/10) radiating bilaterally to shoulders and arms with associated numbness and tingling in upper extremities. Imaging studies (X-ray, CT, MRI from 10/17/24-11/07/24) demonstrated severe C4-7 spondylosis with stenosis, disc collapse, kyphosis, and cord deformation. Physical examination revealed restricted painful neck ROM, positive Spurling's sign, bilateral C4-7 dermatomal deficit, and upper extremity weakness (4/5 in multiple muscle groups). Patient was diagnosed with C4-7 spondylosis and stenosis, myelopathy, upper extremity radiculopathy, and weakness. Treatment plan includes C4-7 anterior cervical discectomy and fusion using [employer] MIS cages/plate as outpatient procedure, continuation of home exercises, heat/ice therapy, nutritional supplementation, and activity restrictions (no lifting/bending/twisting >20lbs). Patient was advised to follow up with PCP for surgical clearance and thoroughly counseled regarding surgical risks and benefits.Ms. Greene, a 74-year-old female, presented to [facility] on 01/18/25 for pre-operative evaluation preceding scheduled C4-7 ACDF. Patient reported cervical pain (VAS 4/10) radiating bilaterally to shoulders and arms with associated numbness and tingling in upper extremities. Imaging studies (X-ray, CT, MRI from 10/17/24-11/07/24) demonstrated severe C4-7 spondylosis with stenosis, disc collapse, kyphosis, and cord deformation. Physical examination revealed restricted painful neck ROM, positive Spurling's sign, bilateral C4-7 dermatomal deficit, and upper extremity weakness (4/5 in multiple muscle groups). Patient was diagnosed with C4-7 spondylosis and stenosis, myelopathy, upper extremity radiculopathy, and weakness. Treatment plan includes C4-7 anterior cervical discectomy and fusion using [employer] MIS cages/plate as outpatient procedure, continuation of home exercises, heat/ice therapy, nutritional supplementation, and activity restrictions (no lifting/bending/twisting >20lbs). Patient was advised to follow up with PCP for surgical clearance and thoroughly counseled regarding surgical risks and benefits. DEMOGRAPHICS: Age: 74 year Height: 4'11" Weight: 167 lbs BP:130/70 BMI: 33.77 kg/m2 Occupation: *Retired CC: * cervical pain VAS: * 4 HISTORY: Ms. Greene presents to the office today, 01/18/25, for *a pre-operative appointment preceding her C4-7 ACDF. Patient reports neck pain that radiates across her shoulders and into the arms bilaterally. She notes numbness and tingling throughout the upper extremities as well. Patient states she did have a left total shoulder arthroplasty on 09/25/24 which is doing well. Patient is currently taking [place] melissa Flexeril for her symptoms. She ambulates indepe ndently. * Patient denies any f/c/sob/cp, perineal numbness or tingling, bowel, or bladder incontinence/retention. * The patients past social, medical, family, surgical history, as well as review of systems, have been reviewed. Please refer to the History and Physical form that has been scanned into our electronic medical record system. * 16 points review of systems completed and as stated in HPI, all other systems reviewed are negative. PAST TREATMENTS: PAST IMAGING: -YES, xray, MRI, CT scan - TRAUMA RELATED: -NO - WORK RELATED: -NO - PT IN LAST 6 MONTHS: -YES - PHYSICIAN DIRECTED HOME EXERCISE PROGRAM: -YES - ACTIVITY MODIFICATION: -YES - MEDICATIONS: -YES, [place] and Flexeril - ALTERNATIVE INTERVENTIONS (CHIROPRACTIC, ACCUPUNCTURE, MASSAGE, RICE): -YES - BRACING: -NO - INJECTIONS (MARCO A, TF, RFA): -NO MEDICAL HISTORY: Past Medical History: REVIEWED STATED IN CHART Past Surgical History: REVIEWED STATED IN CHART Social History: REVIEWED STATED IN CHART SMOKING: Never smoker ETOH: None SUBSTANCES: None Family History: REVIEWED STATED IN CHART P1 Current Medications: Rx: Diltiazem CD Ref: 0 Instructions: 360 mg daily Rx: isosorbide dinitrate Ref: 0 Instructions: Take 1 Tablet ORAL daily. Rx: amitriptyline 50 mg tablet Ref: 0 Instructions: take 1 tablet (50 mg) by oral route 1 time per day Rx: atorvastatin 20 mg tablet Ref: 0 Instructions: take 1 tablet (20 mg) by oral route once daily Rx: pantoprazole 40 mg tablet,delayed release Ref: 0 Instructions: take 1 tablet (40 mg) by oral route 1 time per day Rx: Probiotic Ref: 0 Instructions: 1000 daily Rx: Calcium 600 mg calcium (1,500 mg) tablet Ref: 0 Instructions: 2 TABS Rx: cholecalciferol (vitamin D3) 25 mcg/drop (1,000 unit/drop) oral drops Ref: 0 Rx: lisinopriL 5 mg tablet Ref: 0 Instructions: take 1 tablet (5 mg) by oral route once daily Rx: iron 325 mg (65 mg iron) tablet Ref: 0 Instructions: take 1 tablet (325 mg) by oral route once daily Rx: multivitamin Ref: 0 Instructions: as directed Rx: nitroglycerin Ref: 0 Instructions: as directed Rx: HYDROcodone 10 mg-acetaminophen 325 mg tablet Ref: 0 Instructions: take 1 tablet by oral route every 4-6 hours as needed for pain Rx: cyclobenzaprine 5 mg tablet Ref: 0 Instructions: take 1 tablet (5 mg) by oral route 3 times per day as needed for muscle spasm Rx: amoxicillin Ref: 0 Instructions: as directed before dentist Rx: levothyroxine 50 mcg capsule Ref: 0 Instructions: take 1 capsule (50 mcg) by oral route once daily Rx: metoprolol tartrate 25 mg tablet Ref: 0 Instructions: take 1 tablet (25 mg) by oral route 2 times per day Rx: Calcium+D Ref: 0 Rx: empagliflozin 10 mg tablet Ref: 0 Instructions: take 1 tablet (10 mg) by oral route once daily in the morning P1 PHYSICAL EXAM: General: AOX3, NAD, Well hydrate, well nourished HEENT: No lumps or masses Extremities: No color changes, no pooling INTEGUMENT: Appearance: Normal color and turgor Surgical Incisions: Lumbar incision well healed. Hairy Patches: ABSENT Dorsal Skin Dimples: Normal [employer] spots: ABSENT PALPATION: TTP Midline: NO Paracervical: YES Parathoracic: NO Paralumbar: NO SIJ TESTING (Tammie's, FABER4, Compression, Distraction, Thigh Thrust, Hip Thrust): NOT TESTED POSTURAL BALANCE: Coronal: BALANCED Sagittal: BALANCED Shoulder height: LEVEL Pelvic Girdle: LEVEL ROM AND APPEARANCE: Neck: RESTRICTED with pain Lumbar: RESTRICTED Shoulders: Symmetrical Hips: Symmetrical Knees: Symmetrical Hands: Symmetrical Feet: Symmetrical VASCULAR STATUS: PALPABLE PULSES B/L UE AND LE 2/4 RAD/ULNAR/DP/PT Edema: NONE NEUROLOGICAL EXAMINATION: Mental Status: Awake, alert, fully oriented with normal attention, concentration, and memory. Fluent appropriate speech. CRANIAL NERVES: I: Olfactory not assessed. II: Visual acuity normal, no visual field deficit noted with confrontation. III, IV: Normal pupillary reflexes & intact extraocular movements without nystagmus. V, : Intact symmetrical facial sensation. VII: Intact symmetrical facial motor movement: Hearing intact. IX, X: Intact gag, swallow, & normal voice. XI: Sternocleidomastoid, trapezius function intact. XII: Tongue midline with normal movements. TENSIONING: * L'HERMITTE'S SIG:NEG SPURLUNG'S SIGN:POS UPPER EXTREMITY TENSIONING SIGNS: NEG CUBITAL TUNNEL COMPRESSION:NEG TINELS AT WRIST:NEG STRAIGH LEG RAISE:NEG CONTRALATERAL STRAIGHT LEG RAISE: NEG MOTOR EXAM (0-5/5, NT) Muscle appearance: Symmetrical, without signs of atrophy or dystrophy UPPER EXTREMITY RIGHT LEFT Shoulder Abduction 5 5 Biceps 5 5 Triceps 4 5 Wrist Extension 4 4 Hand Intrinsics 4 4 [place] Aide 4 4 LOWER EXTREMITY RIGHT LEFT Hip Flexion 5 5 Knee Extension 5 5 Knee Flexion 5 5 Dorsiflexion 5 5 Plantarflexion 5 5 EHL 5 5 FHL 5 5 REFLEXES (0-4/2, NT): RIGHT LEFT Bicep 3 3 Brachioradialis 2 2 Triceps 3 3 Patellar 2 2 Achilles 2 2 PATHOLOGICAL REFLEXES: RIGHT LEFT BERNSTEIN'S ABSENT PRESENT CLONUS ABSENT ABSENT BABINSKI ABSENT ABSENT RECTAL TONE: INTACT/NT SENSATION (0-4, NT): Sensation intact to LT and Pain * C5-T1 distribution BUE * L2-S2 distribution BLE *Exceptions below* DERMATOMAL DEFICIT/RADICULAR PATTERN: C4-7 BUE GAIT AND FUNCTIONAL EVALUATION: AMBULATORY AID CANE ROMBERG'S TEST INTACT HAND AND FINGER DEXTERITY INTACT NO DYSDIADOCHOKINESIA EXAM NEG B/L NO TOE/HEEL WALK INTACT WITH GOOD BALANCE NO SQUAT AND RISE W/O ASSISTANCE TO 60 DEG KNEE FLEXION NO SINGLE LEG STANCE NOT INTACT [place] NT IMAGING: XRAY Date: 10/17/24 Location: [facility] Region: CERVICAL Views: MV IMAGES ARE REVIEWED WITH THE PATIENT IN OFFICE AND DEMONSTRATE THE FOLLOWING: FINDINGS: Severe spondylosis noted from C4-7 with disc collapse, anterior osteophytic changes as well as kyphosis due to the collapse. There are posterior osteophyte changes as well which cause b/l foraminal stenosis due to collapse and osteophyte formation. There is severe facet arthrosis noted without fracture. C01- and C1-2 are stable at this time. No lesions noted. XRAY Date: 12/07/24 Location: [facility] Region: Right hand small finger Views: MV IMAGES ARE REVIEWED WITH THE PATIENT IN OFFICE AND DEMONSTRATE THE FOLLOWING: FINDINGS: No acute fractures noted. CT Date: 11/07/24 Location: [facility] Region: CERVICAL Contrast: N IMAGES ARE REVIEWED WITH THE PATIENT IN OFFICE AND DEMONSTRATE THE FOLLOWING: FINDINGS: C4-7 spondylosis, severe with collapse, kyphosis and disc height loss. Anterior osteophyte formation as well as posterior with severe facet arthrosis noted. No acute fracturs noted. C0-1 and C1-2 stable. Foraminal stenosis due to osteophyte formation noted on oblique films b/l. MRI Date: 11/07/24 Location: [facility] Region: CERVICAL Contrast: N IMAGES ARE REVIEWED WITH THE PATIENT IN OFFICE AND DEMONSTRATE THE FOLLOWING: FINDINGS: Severe spondylosis with stenosis, sever central and foraminal at C4-7 due to disc collapse, height loss, ligamental overgrowth and PLL thickening as well as degenerative disc herniations causing central and b/l foraminal stenosis. This is moderate to severe at each level cauising cord contact and deformation. No fractrus noted. No lesions. C0/1 and C1/2 stable. IMPRESSION: It was my pleasure to have seen and examined Nidia. I reviewed the patient's clinical syndrome, physical findings, and imaging studies during the appointment today. It is my impression that the patient has a diagnosis of. 1.C4-7 Spondylosis and stenosis 2.Myelopathy 3.Upper extremity radiculopathy 4. Upper extremity weakness PLAN: DISCUSSION: -I have discussed with the patient their clinical signs and symptoms, imaging, and treatment options. We have discussed risks, benefits, potential outcomes and natural course as pertains top their issues. The patient understands and would like to proceed as follows below: SURGICAL RECOMMENDATION -C4-7 ANTERIOR CERVICAL DISCECOMTY AND FUSION SUPINE GLOBUS COALITION MIS CAGES/PLATE OUT PT THERAPIES -Cont. with home exercises and home PT exercises as able -Cont. with Heat/Ice as warranted -Cont. with supplementation Vit D, Vit C, Ca2+, High protein diet -OK for massage or other alternative treatment modalities as able. If it exacerbates your sx do not continue ACTIVITY -NO LIFTING BENDING TWISTING PUSHING PULLING GREATER THAN -20lbs -Recommend walking up to 30 min 2x daily on a flat easy surface with good support. MEDICATIONS -Take as directed -Cont. home medications as directed by your PCP. Check with your PCP for any medication interactions or issues if needed. IMAGING -N/A INJECTIONS -N/A Spine Surgery Risk Review Ms. Greene is presenting for evaluation of cervical pain. It was my pleasure to have seen and examined Ms. Greene. In our visit today we have had a chance to go over subjective complaints, physical examination findings and treatments including the natural course history without intervention and various interventional options. The patients imaging demonstrates: -XRAY, CT AND MRI REVIEWED DEMONSTRATE SEVERE SPONDYLOSIS WITH STENOSIS AT C4-7 WITH DEGENERATIVE DISC HERNIATION, COLLAPSE, PLL AND LF THICKENING CAUSING CENTRAL AND FORAMINAL STENOSIS THAT IS SEVERE. THERE IS CORD DEFORMATION DUE TO THESE CHANGES WELL THE KYPHOSIS AT THESE LEVELS. NO FRACTRUES OR LESIONS NOTED. On physical exam, Ms. Greene demonstrates: Patient reports neck pain that radiates across her shoulders and into the arms bilaterally. She notes numbness and tingling throughout the upper extremities as well. Patient states she did have a left total shoulder arthroplasty on 09/25/24 which is doing well. Patient is currently taking [place] melissa Flexeril for her symptoms. She ambulates independently. I have explained to the patient that as their condition progresses it will cause further neurological deficits and eventual paralysis. Based on the patients imaging, physical exam, and the rapid progression and disabling nature of their symptoms, at this time I recommend surgery in the form of a: C4-7 ANTERIOR CERVICAL DISCECOMTY AND FUSIONF. I discussed the risk and benefits of this procedure at length with Ms. Greene. The patient [significant other] agreed to considered pursuing the procedure abovementioned. Prior to surgery, she should follow up with her PCP (Cardio, ID, IM etc) for clearance. Questions were invited and answered, and the patient wishes to proceed as outlined below. Currently, I am recommendin. C4-7 ANTERIOR CERVICAL DISCECOMTY AND FUSION 2.Follow up with PCP for surgical clearance 3.Review of surgical risks and benefits as well as an educational packet on the proposed surgical procedure. Risks: All surgical procedures come with inherent risks, including those related to positioning, anesthesia, intraoperative findings, and postoperative complications. It is important to understand that surgery does not come with any guarantee of a successful outcome as complications and adverse events are always possible. The patient was given a handout in office today discussing the surgical procedure and risks associated with the intervention, both of which were discussed with the patient. These risks include but are not limited to the following: * Experiencing same, different or even worse symptoms in back, neck, arms, or legs compared to before surgery. Requiring further surgery or other forms of treatment presently or at some time in the future at same or other levels of the intended spine surgery. On an extreme but fortunately relatively rare basis severe complication such as blindness, stroke, heart attack, temporary and/or permanent nerve injury, paralysis, coma, or may occur, sometimes without known explanation. Surgical complications may include but are not limited to risk of infection, fluid accumulation in the surgical dissection site, including a s eroma or hematoma, that requires additional surgery, wound drainage, bleeding, new numbness or weakness, vision changes/loss, spinal fluid leakage, non-healing and/or infected incision, headaches, difficulty or inability to swallow, hoarseness, hemopneumothorax, pneumothorax, impotence, retrograde ejaculation, vaginal dryness; injury to nerves, spinal cord, blood vessels, lymphatics or other vital organs (i.e., bowel injury, injury to the great vessels); heterotopic bone formation; complications related to the hardware such as screws, rods, cages including misplaced hardware, device failure, i nstrumentation at the wrong spine level, hardware fracture/breakage, or hardware loosening; vertebral failure of the spinal column above or below the newly placed hardware; retained surgical instrumentations or devices and the need for further surgery. * Medical risks of the planned spine surgery include but are not limited to generalized Infections to the whole body or local areas outside of the surgical site (sepsis), heart attack, bleeding, anaphylaxis, meningitis, seizure, epilepsy, hearing loss, burn mcarthur, laceration of the head or other areas of the body, bruising, hypersensitivity of the skin, bladder over distension; allergic reaction; shoulder injury related to positioning; fat, blood and air clots to other areas of the body like heart, lungs, brain; failure of internal organs such as lungs, kidneys, liver and excessive bleeding. If blood transfusions are necessary, note that transfusions may cause intolerance reactions such as anaphylaxis or other complex reactions. Despite best efforts, the results of spine surgery might not heal in terms of bone, soft tissues such as skin, fascia, ligaments, and joints. Additionally, in order to achieve best possible results, spine surgery may be carried out beyond the initially planned levels and involve decompression, fusion including insertion of hardware at levels other than the original intended area of surgical interest change some portions of the procedure in order to ensure the best possible outcomes. With spine surgery and spinal fusion, there are different off label uses of instrumentation (devices, implants and hardware) as well as biological substances (bone morphogenic proteins, demineralized bone matrix) as well as using extra bone from allograft sources (i.e. cadaver bone) or autograft (iliac crest bone, ribs, or the spine itself). The patient has been given information about these practices and their inherent risks and benefits. [facility] is an educational center that serves as a training facility for neurosurgical and orthopedic AG SERVICE MANAGER and Nursing students. Physician assistants are medically trained surgical providers who function in the outpatient, inpatient, and operating room setting under the direct supervision of the attending surgeon. [facility] has multiple operating rooms with single and overlapping rooms running daily. They currently function under the required guidelines as produced by the [facility] Finance Committee with regards to the overlapping rooms and will continue to comply with changes to this policy as they occur. The requirements include and are complied with as follows: (1) the critical portions of the overlapping rooms will not occur at the same time, (2) the attending physician will be physically present during the critical portions of the procedure and immediately available during the entire case, and (3) a back-up attending is designated should the primary attending not be immediately available. The patient has had a chance to review all the listed information, has been given print outs detailing this information, and has had all his/her questions answered to their satisfaction. It was my pleasure to have seen and examined Ms. Greene. In our visit today we have had a chance to go over my understanding of our patient's current condition, the natural course history without intervention and various interventional options. Questions were invited and answered, and the patient wishes to proceed as outlined above. I have seen and examined the patient for 25 minutes and we have spent more than 50% of the time in repeat and detailed counseling about the patient's condition, its natural course history with out and as much as can be predicted with surgery and re-review of various surgical treatment options. In conclusion, Ms. Greene requested we proceed with the above suggested surgery and are willing to accept risks and limitations of the suggested surgery as nature of the disease process and our best attempts at treatment for the condition. MEDICAL NECESSITY: Ms. Greene presents with severe cervical spondylosis and stenosis at C4-7 levels, demonstrating significant neurological symptoms including bilateral upper extremity radiculopathy, numbness, and tingling. Her condition is characterized by severe degenerative changes confirmed through multiple imaging modalities (X-ray, CT, and MRI), showing cord deformation, significant central and foraminal stenosis, and kyphotic changes. The patient's symptoms are progressive and significantly impact her quality of life, with moderate pain levels (VAS 4/10) that have been refractory to conservative management including medication therapy. The presence of cord deformation and severe stenosis places her at risk for permanent neurological deficit if left untreated, making surgical intervention medically necessary at this time. SURGICAL RATIONALE: The decision for C4-7 anterior cervical discectomy and fusion is based on sever al critical factors: 1) The presence of multi-level severe stenosis with cord deformation, which carries a risk of progressive myelopathy and permanent neurological injury; 2) The failure of conservative management to adequately control symptoms; 3) The anatomical distribution of pathology spanning C4-7, requiring a comprehensive decompression and stabilization; 4) The presence of kyphotic changes which can be addressed through anterior approach and mu-ism of lordosis; and 5) The patient's otherwise good medical condition making her a suitable surgical candidate. The anterior approach is specifically chosen to provide direct access to the pathologic segments, allow for complete decompression of neural elements, and restore proper cervical alignment. The addition of fusion is necessary to maintain decompression and prevent further degeneration at the operated levels. FOLLOW UP: *POST-OP PLAN AT NEXT VISIT: * RECHECK PATIENT EDUCATION: Medications Reviewed: YES In our visit today Ms. Greene and I have had a chance to go over my understanding of the patient's current condition, the natural course history without intervention and various interventional options. Questions were invited and answered, and the patient wishes to proceed as outlined above. I will be sure to keep you updated after Ms. Greene returns here for further follow-up. Thank you again for your referral. Please do not hesitate to contact me if you have any further questions. Signed and authenticated by: Jennifer Oneill [place] [address] [facility], [address] [address] . This message is confidential, intended only for the named recipient(s) and may contain information that is privileged or exempt from disclosure under applicable law. If you are not the intended recipient(s), you are notified that the dissemination, distribution or copying of this information is prohibited. If you received this message in error, please notify the sender then delete this message. Past Medical History Past Medical History: Asthma, Coronary Artery Disease (CAD), CVA/TIA, Diabetes Mellitus, GERD/Reflux, Hyperlipidemia, Hypertension, Myocardial Infarction ([place]), Musculoskeletal Disorder, Sleep Apnea/CPAP/BIPAP, Thyroid Disorder Additional Past Medical History / Comment(s): IGA RESPONSE TRIGGERS ASTHMA, TRIGGER FINGER, LUMBAR DDD, TIA 2012- NO RESIDUAL, USES C-PAP, HX LUMBAR FX AFTER FALL, HX KIDNEY STONES, OSTEOPOROSIS, HYPOTHYROID; HAS DEXCOM G7 CONTINUOUS GLUCOSE MONITOR. Last Myocardial Infarction Date:: 09/2005 History of Any Multi-Drug Resistant Organisms: None Reported Past Surgical History: Appendectomy, Back Surgery, Breast Surgery, Cholecystectomy, Heart Catheterization, Joint Replacement, Orthopedic Surgery Additional Past Surgical History / Comment(s): LT KNEE ARTHROSCOPY. LT CTR. HX KIDNEY STONE REMOVAL, [facility] SURG. PAIN CLINIC PROCEDURES, BREAST BX LT BREAST-BENIGN, bilknee replacement, lithotripsy, BILAT CATARACTS REMOVED WITH LENS IMPLANTS, COLONOSCOPY, SPINAL FUSION, bilSHOULDER REPLACEMENT Past Anesthesia/Blood Transfusion Reactions: No Reported Reaction Additional Past Anesthesia/Blood Transfusion Reaction / Comment(s): WAS ON A VENT FOR 24 HOURS AFTER SPINAL FUSION JANUARY 2022. NO HX BLOOD TRANSFUSION Smoking Status: Never smoker - Past Family History Mother Family Medical History: Cancer Additional Family Medical History / Comment(s): FROM THYROID [place] Father Family Medical History: Cancer Additional Family Medical History / Comment(s): FROM STOMACH CA, HX ALCOHOLISM Medications and Allergies Home Medications Medication Instructions Recorded Confirmed Type dilTIAZem HCL [dilTIAZem HCL 24Hr 360 mg PO DAILY 04/07/16 01/22/25 History ER] Amitriptyline HCl 50 mg PO HS 01/29/19 01/22/25 History Atorvastatin [Lipitor] 20 mg PO HS 04/23/20 01/22/25 History Pantoprazole [Protonix] 40 mg PO DAILY 04/23/20 01/22/25 History Levothyroxine Sodium [Synthroid] 50 mcg PO DAILY 11/08/21 01/22/25 History lisinopriL [Zestril] 5 mg PO DAILY 10/11/22 01/22/25 History L.acidoph,Paracasei, B.lactis 1,000 mg PO DAILY 10/20/22 01/22/25 History [Probiotic] Calcium Carbonate/Vitamin D3 650 mg PO BID 05/05/23 01/22/25 History [Calcium 600 mg-D3 20 mcg (800 unit)] Cholecalciferol [Vitamin D3 (25 25 mcg PO DAILY 05/05/23 01/22/25 History Mcg = 1000 Iu)] Ferrous Sulfate [Iron (65 MG 325 mg PO DAILY 05/05/23 01/22/25 History Elemental)] Multivit with Calcium,Iron,Min 1 tab PO DAILY 05/05/23 01/22/25 History [Women's Multivitamin] Nitroglycerin Sl Tabs [Nitrostat] 0.4 mg SUBLINGUAL Q5M PRN tab 10/19/23 01/22/25 Rx Isosorbide Mononitrate [Isosorbide 60 mg PO BID 12/26/23 01/22/25 History Mononitrate ER] Metoprolol Succinate (ER) [Toprol 25 mg PO DAILY 06/29/24 01/22/25 History XL] Ipratropium-Albuterol Nebulize 3 ml INHALATION QID PRN 09/25/24 01/22/25 History [Duoneb 0.5 mg-3 mg/3 ml Soln] Amoxicillin (Unk) 2,000 mg PO DIRECTED PRN 01/22/25 01/22/25 History Empagliflozin [Jardiance] 10 mg PO DAILY 01/22/25 01/22/25 History Allergies Allergy/AdvReac Type Severity Reaction Status Date / Time levofloxacin [From Levaquin] Allergy Rapid Verified 01/22/25 12:12 Heart Rate Physical Examination Osteopathic Statement: *. No significant issues noted on an osteopathic structural exam other than those noted in the History and Physical/Consult.
[~2025-01-25 10:53] MED LIST changes: -HYDROmorphone 0.5 MG/0.5 ML SYRINGE IVP PRN; -LIDOCAINE 1% (10MG/ML) FOR IV START INTRADERMA PRN; +MIDAZOLAM 2 MG/2 ML VIAL IV PRN
[2025-01-25] MEDS: ACETAMINOPHEN TAB 500 MG TAB PO PRN (12:15)
[2025-01-25] MEDS: GABAPENTIN 300 MG CAP PO PRN (12:15)
[2025-01-25 12:45] LABS: Glucose,Whole Blood 88 mg/dL (70-110)
[2025-01-25] MEDS: ONDANSETRON 4 MG/2 ML VIAL IVP PRN (12:47)
[2025-01-25] MEDS: IV FLUID CONTINUATION 1,000 ML IV ONE ×3 (12:47→14:47)
[2025-01-25] MEDS: LACTATED RINGERS 1,000 ML IV SCH (12:47)
[2025-01-25] MEDS: FAMOTIDINE 20 MG/2 ML VIAL IV STA (12:49)
[2025-01-25] MEDS: IPRATROPIUM-ALBUTEROL 3 ML NEB INHALATION STA (12:58)
[2025-01-25] MEDS ORDERED: fentaNYL (PF) 50 MCG/ML 2 ML AMP ONE (13:00)
[2025-01-25] MEDS ORDERED: PHENYLEPHRINE 10 MG/ML VIAL ONE (13:00)
[2025-01-25] MEDS ORDERED: GLYCOPYRROLATE 0.2 MG/ML 2 ML VIAL ONE (13:00)
[2025-01-25] MEDS ORDERED: HYDROmorphone (PF) 1 MG/ML ONE (13:00)
[2025-01-25] MEDS ORDERED: PROPOFOL 10 MG/ML 20 ML VIAL IV ONE (13:00)
[2025-01-25] MEDS ORDERED: MIDAZOLAM 2 MG/2 ML VIAL ONE (13:00)
[2025-01-25] MEDS ORDERED: SUCCINYLCHOLINE CHLORIDE 200 MG/10 ML VIAL IV ONE (13:00)
[2025-01-25] MEDS ORDERED: TRANEXAMIC 1,000 MG/100ML-NACL PREMIX BAG ONE (13:00)
[2025-01-25] MEDS ORDERED: LIDOCAINE 1% INJ 10MG/ML (20 ML MDV) ONE (13:00)
[2025-01-25] MEDS ORDERED: KETAMINE HCL IN 0.9 % NACL 50 MG/5 ML SYRINGE ONE (13:00)
[2025-01-25] MEDS ORDERED: ROCURONIUM 10 MG/ML (5 ML VIAL) IV ONE (13:00)
[2025-01-25] MEDS ORDERED: LIDOCAINE 4% LTA KIT (4 ML) TOPICAL ONE (13:00)
[2025-01-25] MEDS ORDERED: NEOSTIGMINE 1 MG/ML 10 ML VIAL ONE (13:00)
[2025-01-25] MEDS: THROMBIN (BOVINE) 5,000 UNIT VIAL TOPICAL ONE (14:06)
--- NOTE | 2025-01-25 15:53 | P.OP ---
Date of Procedure: 01/25/25 Preoperative Diagnosis: 1.C4-7 Spondylosis and stenosis 2.Myelopathy 3.Upper extremity radiculopathy 4. Upper extremity weakness Postoperative Diagnosis: 1.C4-7 Spondylosis and stenosis 2.Myelopathy 3.Upper extremity radiculopathy 4. Upper extremity weakness Procedure(s) Performed: 1. C4-5 ANTERIOR CERVICAL ARTHRODESIS 2. C5-6 ANTERIOR CERVICAL ARTHRODESIS 3. C6-7 ANTERIOR CERVICAL ARTHRODESIS 4. C3-4, C4-5, C5-6 ANTERIOR INSTRUMENTATION 5. C3-4, C4-5, C5-6 INSERTION OF BIOMECHANICAL DEVICE CAGE x3 USE OF IONM USE OF IO MICROSCOPE Implants: GLOBUS COALITION CAGE AND PLATE, LARGE, DEEP 8, 8, 7 mm WITH 14 MM ANCHORS MAGNATOS, AUTOGRAFT Anesthesia: STEVE Surgeon: Amadeo Syed Manager Background #1: Shantanu Evangelista (WAS PRESENT AND ASSISTED WITH ALL ASPECTS OF THE CASE FROM POSITION TO DRESSING PLACEMENT) Estimated Blood Loss (ml): 25 IV fluids (ml): 1,100 Urine output (ml): 200 Pathology: none sent Condition: stable Disposition: PACU Indications for Procedure: Ms. Greene, a 74-year-old female, presented to [facility] on 01/18/25 for pre-operative evaluation preceding scheduled C4-7 ACDF. Patient reported cervical pain (VAS 4/10) radiating bilaterally to shoulders and arms with associated numbness and tingling in upper extremities. Imaging studies (X-ray, CT, MRI from 10/17/24-11/07/24) demonstrated severe C4-7 spondylosis with stenosis, disc collapse, kyphosis, and cord deformation. Physical examination revealed restricted painful neck ROM, positive Spurling's sign, bilateral C4-7 dermatomal deficit, and upper extremity weakness (4/5 in multiple muscle groups). Patient was diagnosed with C4-7 spondylosis and stenosis, myelopathy, upper extremity radiculopathy, and weakness. Treatment plan includes C4-7 anterior cervical discectomy and fusion using [employer] MIS cages/plate as outpatient procedure, continuation of home exercises, heat/ice therapy, nutritional supplementation, and activity restrictions (no lifting/bending/twisting >20lbs). Patient was advised to follow up with PCP for surgical clearance and thoroughly counseled regarding surgical risks and benefits.Ms. Greene, a 74-year-old female, presented to [facility] on 01/18/25 for pre-operative evaluation preceding scheduled C4-7 ACDF. Patient reported cervical pain (VAS 4/10) radiating bilaterally to shoulders and arms with associated numbness and tingling in upper extremities. Imaging studies (X-ray, CT, MRI from 10/17/24-11/07/24) demonstrated severe C4-7 spondylosis with stenosis, disc collapse, kyphosis, and cord deformation. Physical examination revealed restricted painful neck ROM, positive Spurling's sign, bilateral C4-7 dermatomal deficit, and upper extremity weakness (4/5 in multiple muscle groups). Patient was diagnosed with C4-7 spondylosis and stenosis, myelopathy, upper extremity radiculopathy, and weakness. Treatment plan includes C4-7 anterior cervical discectomy and fusion using [employer] MIS cages/plate as outpatient procedure, continuation of home exercises, heat/ice therapy, nutritional supplementation, and activity restrictions (no lifting/bending/twisting >20lbs). Patient was advised to follow up with PCP for surgical clearance and thoroughly counseled regarding surgical risks and benefits. Description of Procedure: C4-7 ACDF The patient was seen and examined in the preoperative area. All preoperative protocols were followed. Informed consent was obtained, risks and benefits of the procedure were discussed at length. Risks including bleeding infection damage to the surrounding tissue and risk of reoperation were discussed with the patient. Risk of anesthesia up to and including was discussed with the patient. These are outlined in the risk review. They were willing to accept these risks and all the risks of surgery. The patient was given a weight-based dose of antibiotics in the form of 2 g Ancef. The patient was seen and evaluated by the anesthesia team who deemed them fit for surgery. The site was marked, the patient was willing to proceed with the procedure. The patient was transferred to the operative suite by the Department of anesthesia. They were then drifted off to sleep by the department anesthesia and GETA was performed. The patient tolerated this well. Peterson catheter was placed by nursing staff, a-traumatically. Once confirmation of lines and ventilation the patient was transferred to a Supine Brown table very carefully. All bony prominences including wrists, elbows, axilla, chest, hips, and thighs, and feet were padded very well. Special attention was paid to the genitalia, and these were padded accordingly. SCDs were placed on bilateral lower extremities and were connected. Arms were well padded and placed at their side thumbs up. Once in position, again we confirmed good ventilation capabilities and that lines were running appropriately. The patients Cervical spine was then exposed. 1010s were placed outlining the incision site. Standard alcohol was used to clean the incision site and allowed to dry. C-arm was used to bio-mayo the patient and confirm level for incision which was marked with a skin marker. Operative briefing was performed with all teams and everyone in agreement to proceed. The patient was then prepped and draped in a normal sterile fashion. Timeout was then performed, and all parties agreed with the procedure to be performed. Transverse skin incision was then made on the right side of the patient's neck 3 cm and dissection taken down to the platysma which was split transversely. Sub platysma flap was made, and interval identified between SCM and medial structures. Omohyoid was visualized and protected. Blunt dissection taken down to the anterior cervical fascia which was identified. Blunt probe was then placed and lateral image taken which confirmed levels for operation. These levels were then marked with a bovi. Subperiosteal dissection of the longissimus muscles were then done over these levels identifying uncovertebral joints bilaterally. Retractor was then placed deep to these muscles and held in place with a bed arm. Starting at C6-7, [place] pins were placed into C6 and C7 and gentle distraction taken out over the levels. Rafaela rongeur used to remove disc material. Operating microscope brought in for visualization. Complete discectomy performed at this level with curette, rongure and pituitary. High speed tish used to remove osteophytes anteriorly and posteriorly until PLL was identified. 6-0 up curette then used to identify the canal and resect the PLL. 2-0 and 3-0 Kerrison used then to remove PLL and disc herniation and performed b/l foraminotomies. Once good decompression was accomplished, meticulous hemostasis was performed. Sizers were then placed under lateral fluoroscopy until the desired height and lordosis. Cage was then selected, packed with autograft and allograft and placed under lateral imaging. Once in good position it was tested and stable. Motors run before and after cage placement were stable. The wound was irrigated, and autograft placed lateral to the cage anteriorly for fusion. [place] pin was then removed from C7 and placed into C5. Gentle distraction taken out over C5-6 now. Complete discectomy done at C5-6 as described including decompression, b/l foraminotomies and PLL resection. Burring of endplates was minimal, osteophytes removed as described. Spacers were then sized and placed under lateral imaging. Cage selected, packed with graft and placed under lateral images. Once in position, meticulous hemostasis performed, and motors remained stable before and after cage placement. AP image confirmed good placement of cages. Wound was irrigated. [place] pin was then removed from C6 and placed into C4. Gentle distraction taken out over C4-5 now. Complete discectomy done at C4-5 as described including decompression, b/l foraminotomies and PLL resection. Burring of endplates was minimal, osteophytes removed as described. Spacers were then sized and placed under lateral imaging. Cage selected, packed with graft and placed under lateral images. Once in position, meticulous hemostasis performed, and motors remained stable before and after cage placement. AP image confirmed good placement of cages. Wound was irrigated. Anterior instrumentation was then done through the plate construct for each level. Awl was passed followed by anchors which were set and locked. All locking mechanisms were set, and all screws had good purchase. Final AP and lateral images taken confirmed good placement of hardware and good reduction and anabaptism of height. The wound was then irrigated copiously with NSS. Surgicel placed deep in the wound. A deep drain placed out a separate incision and sewed into place. Layered closure then performed with 3-0 Vicryl in the platysma and subQ tissue. 4-0 Strata fix in the subcuticular tissue. The wound was then cleaned, and dried and skin glue placed. Once glue dried on Opifoam was placed. The patient was then transferred back to their hospital bed a-traumatically. The drain continued to hold suction. They were placed in a soft collar. They were then awakened by the department of anesthesia having tolerated the pr ocedure well without complications.
--- NOTE | 2025-01-25 16:01 | FL ---
Fluoroscopy INDICATION: Pain, cervical fusion FINDINGS: Fluoroscopy time: 25 seconds. Total dose area product (DAP) in uGy*m?, mGy*cm? (or similar): 0.3427 Images obtained: 0. IMPRESSION: 1. Documentation of fluoroscopy. [facility], , 01/25/2025 3:59 PM
--- NOTE | 2025-01-25 16:03 | XR ---
Fluoroscopy INDICATION: Pain FINDINGS: Fluoroscopy time: 25 seconds. Total dose area product (DAP) in uGy*m?, mGy*cm? (or similar): 0.3427 Images obtained: 7. Images needle directed towards the C4-5 level. This is also directed to the C6-7 level IMPRESSION: 1. Documentation of fluoroscopy. [facility], , 01/25/2025 4:01 PM
[2025-01-25] MEDS ORDERED: HYDROcodone/APAP 5-325MG 1 EACH TAB PO PRN (16:15)
[2025-01-25] MEDS ORDERED: ONDANSETRON 4 MG/2 ML VIAL IVP PRN (16:15)
[2025-01-25] MEDS ORDERED: MAGNESIUM HYDROXIDE 2,400 MG/30 ML CUP PO PRN (16:15)
[2025-01-25] MEDS ORDERED: traMADol 50 MG TAB PO PRN (16:15)
[2025-01-25] MEDS: FUROSEMIDE 10 MG/ML 4 ML VIAL IV STA (16:34)
[2025-01-25] MEDS: HYDROmorphone 0.5 MG/0.5 ML SYRINGE IVP PRN (17:21)
[2025-01-25 17:37] LABS: Glucose,Whole Blood 158 mg/dL (70-110)
[2025-01-25] MEDS ORDERED: NITROGLYCERIN SL TABS 0.4 MG TAB SUBLINGUAL PRN (18:20)
[2025-01-25] MEDS: ACETAMINOPHEN TAB 325 MG TAB PO SCH (18:29)
[2025-01-25] MEDS: KETOROLAC 15 MG/ML 1 ML VIAL IVP SCH (18:29)
[2025-01-25 20:19] LABS: Glucose,Whole Blood 132 mg/dL (70-110)
[2025-01-25] MEDS: ATORVASTATIN 20 MG TAB PO SCH (21:49)
[2025-01-25] MEDS: AMITRIPTYLINE HCL 50 MG TAB PO SCH (21:50)
[2025-01-25] MEDS: ISOSORBIDE MONONITRATE ER 60 MG TAB.ER.24H PO SCH (21:50)
[2025-01-25] MEDS: CALCIUM CARB-VIT D 500 MG-5 MCG TAB PO SCH (21:50)
[2025-01-25] MEDS: HYDROmorphone 1 MG/ML 1 ML SYRINGE IVP PRN (22:27)
[2025-01-26] MEDS: HYDROcodone/APAP 7.5-325MG 1 EACH TAB PO PRN (00:29)
[2025-01-26] MEDS: LEVOTHYROXINE 50 MCG TAB PO SCH (05:14)
[2025-01-26 06:21] LABS: Glucose,Whole Blood 108 mg/dL (70-110)
--- NOTE | 2025-01-26 07:51 | CT ---
EXAMINATION TYPE: CT cervical spine wo con CT DLP: 456.6 mGycm, Automated exposure control for dose reduction was used. DATE OF EXAM: 01/26/2025 7:39 AM COMPARISON: Cervical spine fluoroscopic images 01/25/2025, MR cervical spine 11/07/2024, CT cervical s pine 11/07/2024. CLINICAL INDICATION:Female, 74 years old with history of s/p C4-C7 ACDF; PHH, POST OP NECK, pain TECHNIQUE: Axial CT images from the skull base to the inferior aspect of T2 we obtained without intra venous contrast. Coronal and sagittal reformatted images were also reviewed. FINDINGS: Postsurgical changes from anterior cervical fusion involving C4-C7 with disc hardware. Hardware appea rs intact with appropriately positioned. There is associated soft tissue gas and edema. Right anterio r approach surgical drain identified with distal tip terminating in the prevertebral soft tissues at C5. No organized sizable fluid collection identified. Normal alignment of the cervical spine. No acute fracture. No significant central canal stenosis. Unc overtebral joint hypertrophy at C4-C5 and C6-C7 resulting in mild bilateral neural foraminal stenosis . Uncovertebral joint hypertrophy at C5-C6 resulting in at least mild left neural foraminal stenosis. IMPRESSION: Postsurgical changes from anterior cervical fusion C4-C7. No CT evidence for complication. [facility], , 01/26/2025 7:48 AM
--- NOTE | 2025-01-26 09:35 | P.PN ---
Subjective Progress Note Date: 01/26/25 Principal diagnosis: Status post C4-C7 ACDF Patient evaluated at bedside, she is resting in her hospital chair. Physical therapy was in to help get patient out of bed and work on ambulation. Patient surgical dressing is in good position and condition. She states that the pare sthesias in the bilateral upper extremities are much improved already. She has been urinating with no issues. She did have some initial lightheadedness when getting up for the CT scan today, this seems to be improving. Pain is well- controlled at this time. Patient denies any headaches, lightheadedness, chest pain or shortness of breath Objective - Vital Signs Vital signs: Vital Signs Temp 98.2 F 01/26/25 06:50 Pulse 92 01/26/25 06:50 Resp 18 01/26/25 06:50 BP 112/64 01/26/25 06:50 Pulse Ox 96 01/26/25 06:50 FiO2 Intake & Output 01/25/25 01/26/25 01/26/25 18:59 06:59 18:59 Intake Total 2400 Output Total 775 1510 Balance 1625 -1510 Weight 76 kg Intake: IV 2400 Output: Drainage 10 Right Neck 10 Urine 750 1500 Estimated Blood Loss 25 Other: Voiding Method Indwelling Catheter Indwelling Catheter - Exam Gen: AOx3, NAD VSS stable at this time Integument: Postop dressing was removed, surgical drain was also removed. Incision is clean, dry and intact Palpation: Mild tenderness with palpation to the anterior cervical spine ROM: Full range of motion in all major muscle groups of the bilateral upper and lower extremities, no focal deficits appreciated Sensory Exam: Senory exam to light touch is intact C5-T1 Senos[place] exam to light touch is intact L2-S1 Motor: 5/5 strength appreciate the bilateral lower extremities with hip flexion, knee extension, knee flexion, plantarflexion, dorsiflexion, EHL, FHL 4/5 strength appreciated in the bilateral upper extremities with shoulder elevation, shoulder abduction, elbow extension, elbow flexion, wrist extension, wrist flexion, mirror silverer Reflexes: 2/4 in all UE and LE Positive Yuni's left, negative right Negative Babinski bilaterally Negative clonus bilaterally - Labs Labs: Abnormal Lab Results - Last 24 Hours (Table) 01/25/25 01/25/25 Range/Units 17:35 20:18 POC Glucose (mg/dL) 158 H 132 H (70-110) mg/dL Assessment and Plan Assessment: Postoperative day #1 status post C4-C7 ACDF Plan: Pain control, continue with current medications DVT prophylaxis, aspirin 81 mg daily Wound care, surgical dressing was changed at bedside, drain was also removed. Patient can continue to advance her diet, recommending softer foods to start Soft c-collar at all times Weight-bear as tolerated with walker No bending, lifting or twisting Medical recommendations appreciated Discharge planning: Plan for discharge home on 01/27/2025 Time with Patient: Less than 30
[2025-01-26] MEDS: SENNOSIDES-DOCUSATE SODIUM 1 EACH TAB PO SCH (09:48)
[2025-01-26] MEDS: CYCLOBENZAPRINE 5 MG TAB PO PRN (09:48)
[2025-01-26] MEDS: LACTOBACILLUS ACIDOPHILUS/PECT 1 EACH CAPSULE PO SCH (09:48)
[2025-01-26] MEDS: DAPAGLIFLOZIN PROPANEDIOL 5 MG TABLET PO SCH (09:49)
[2025-01-26] MEDS: MULTIVITAMINS, THERA 1 EACH TAB PO SCH (09:49)
[2025-01-26] MEDS: PANTOPRAZOLE 40 MG TABLET PO SCH (09:49)
[2025-01-26] MEDS: DILTIAZEM CD 180 MG CAP.ER.24H PO SCH (09:49)
[2025-01-26] MEDS: FERROUS SULFATE 325 MG TAB PO SCH (09:49)
[2025-01-26] MEDS: CHOLECALCIFEROL 25 MCG (1000 IU) TABLET PO SCH (09:49)
[2025-01-26] MEDS: METOPROLOL SUCCINATE (ER) 25 MG TAB.ER.24H PO SCH (09:49)
[2025-01-26] MEDS: lisinopriL 5 MG TAB PO SCH (10:56)
[2025-01-26 12:02] LABS: Glucose,Whole Blood 89 mg/dL (70-110)
--- NOTE | 2025-01-26 12:16 | P.CONS ---
History of Present Illness - Reason for Consult Consult date: 01/26/25 hypertension hypothroidism - History of Present Illness Hands a 74-year-old female well-known to my practice. Underwent yesterday and anterior cervical discectomy and fusion with Dr. Goodman meraz, she is postop day 1 today. She is a type II diabetic but currently is not on any medication, she has a deficiency, hypothyroidism hyperlipidemia hypertension. She is having some postoperative pain as I see her today. Her , who is blind, is at her bedside today. She denies any chest pains pressure shortness of breath nausea vomiting. She has not had a bowel movement. They just remove the Peterson catheter earlier this morning. Other than her pain she feels quite stable. Review of Systems All systems: negative Past Medical History Past Medical History: Asthma, Coronary Artery Disease (CAD), CVA/TIA, Diabetes Mellitus, GERD/Reflux, Hyperlipidemia, Hypertension, Myocardial Infarction (ID), Musculoskeletal Disorder, Sleep Apnea/CPAP/BIPAP, Thyroid Disorder Additional Past Medical History / Comment(s): IGA RESPONSE TRIGGERS ASTHMA, TRIGGER FINGER, LUMBAR DDD, TIA 2012- NO RESIDUAL, USES C-PAP, HX LUMBAR FX AFTER FALL, HX KIDNEY STONES, OSTEOPOROSIS, HYPOTHYROID; HAS DEXCOM G7 CONTINUOUS GLUCOSE MONITOR. Last Myocardial Infarction Date:: 09/2005 History of Any Multi-Drug Resistant Organisms: None Reported Past Surgical History: Appendectomy, Back Surgery, Breast Surgery, Cholecystectomy, Heart Catheterization, Joint Replacement, Orthopedic Surgery Additional Past Surgical History / Comment(s): LT KNEE ARTHROSCOPY. LT CTR. HX KIDNEY STONE REMOVAL, JOSE [facility]FR[facility]O LASER EYE SURG. PAIN CLINIC PROCEDURES, BREAST BX LT BREAST-BENIGN, bilknee replacement, lithotripsy, BILAT CATARACTS REMOVED WITH LENS IMPLANTS, COLONOSCOPY, SPINAL FUSION, bilSHOULDER REPLACEMENT Past Anesthesia/Blood Transfusion Reactions: No Reported Reaction Additional Past Anesthesia/Blood Transfusion Reaction / Comm: WAS ON A VENT FOR 24 HOURS AFTER SPINAL FUSION JANUARY 2022. NO HX BLOOD TRANSFUSION Past Psychological History: No Psychological Hx Reported Smoking Status: Never smoker Past Alcohol Use History: None Reported Past Drug Use History: None Reported - Past Family History Mother Family Medical History: Cancer Additional Family Medical History / Comment(s): FROM THYROID CA Father Family Medical History: Cancer Additional Family Medical History / Comment(s): FROM STOMACH CA, HX ALCOHOLISM Medications and Allergies Home Medications Medication Instructions Recorded Confirmed Type dilTIAZem HCL [dilTIAZem HCL 24Hr 360 mg PO DAILY 04/07/16 01/25/25 History ER] Amitriptyline HCl 50 mg PO HS 01/29/19 01/25/25 History Atorvastatin [Lipitor] 20 mg PO HS 04/23/20 01/25/25 History Pantoprazole [Protonix] 40 mg PO DAILY 04/23/20 01/25/25 History Levothyroxine Sodium [Synthroid] 50 mcg PO DAILY 11/08/21 01/25/25 History lisinopriL [Zestril] 5 mg PO DAILY 10/11/22 01/25/25 History L.acidoph,Paracasei, B.lactis 1,000 mg PO DAILY 10/20/22 01/25/25 History [Probiotic] Calcium Carbonate/Vitamin D3 650 mg PO BID 05/05/23 01/25/25 History [Calcium 600 mg-D3 20 mcg (800 unit)] Cholecalciferol [Vitamin D3 (25 25 mcg PO DAILY 05/05/23 01/25/25 History Mcg = 1000 Iu)] Ferrous Sulfate [Iron (65 MG 325 mg PO DAILY 05/05/23 01/25/25 History Elemental)] Multivit with Calcium,Iron,Min 1 tab PO DAILY 05/05/23 01/25/25 History [Women's Multivitamin] Nitroglycerin Sl Tabs [Nitrostat] 0.4 mg SUBLINGUAL Q5M PRN tab 10/19/23 01/25/25 Rx Isosorbide Mononitrate [Isosorbide 60 mg PO BID 12/26/23 01/25/25 History Mononitrate ER] Metoprolol Succinate (ER) [Toprol 25 mg PO DAILY 06/29/24 01/25/25 History XL] Ipratropium-Albuterol Nebulize 3 ml INHALATION QID PRN 09/25/24 01/25/25 History [Duoneb 0.5 mg-3 mg/3 ml Soln] Amoxicillin (Unk) 2,000 mg PO DIRECTED PRN 01/22/25 01/25/25 History Empagliflozin [Jardiance] 10 mg PO DAILY 01/22/25 01/25/25 History Allergies Allergy/AdvReac Type Severity Reaction Status Date / Time [facility] Allergy Rapid Verified 01/25/25 12:09 Heart Rate Physical Exam Vitals: Vital Signs Temp Pulse Resp BP Pulse Ox 01/26/25 06:50 98.2 F 92 18 112/64 96 01/26/25 01:16 98.3 F 78 16 115/67 95 01/25/25 20:00 78 110/64 90 L 01/25/25 19:45 98 115/75 90 L 01/25/25 19:30 78 113/69 91 L 01/25/25 19:15 81 111/73 90 L 01/25/25 19:00 79 128/73 90 L 01/25/25 18:45 81 127/72 89 L 01/25/25 18:30 87 135/76 95 01/25/25 18:15 85 115/61 88 L 01/25/25 18:00 97.6 F 75 18 108/65 92 L 01/25/25 17:32 77 16 117/54 98 01/25/25 17:18 65 16 102/56 93 L 01/25/25 16:54 65 16 114/52 94 L 01/25/25 16:39 66 16 113/59 95 01/25/25 16:24 68 16 116/51 90 L 01/25/25 16:09 60 16 110/50 92 L Intake and Output 01/25/25 01/26/25 01/26/25 22:59 06:59 14:59 Intake Total 650 Output Total 775 1510 Balance -125 -1510 Intake: IV 650 Output: Drainage 10 Right Neck 10 Urine 750 1500 Estimated Blood Loss 25 Other: Voiding Method Indwelling Catheter Weight 76 kg GENERAL: Fatigued, slightly uncomfortable, female, c-collar in place, lying in bed HEAD: Atraumatic, normocephalic. EYES: Pupils equal round and reactive to light, extraocular movements intact, sclera anicteric, conjunctiva are normal. ENT:nares patent, oropharynx clear without exudates. Moist mucous membranes. NECK: Anterior incision site is viewable below her c-collar. Soft c-collar is in place, further exam deferred LUNGS: Breath sounds clear to auscultation bilaterally and equal. No wheezes rales or rhonchi. HEART: Regular rate and rhythm without murmurs, rubs or gallops.S1S2 Normal ABDOMEN: Soft, nontender, normoactive bowel sounds. No guarding, no rebound. No masses appreciated. EXTREMITIES: Normal range of motion, no pitting or edema. No clubbing or cyanosis. NEUROLOGICAL: Cranial nerves II through XII grossly intact. Normal speech, normal gait. PSYCH: Normal mood, normal affect. SKIN: Warm, Dry, normal turgor, no rashes or lesions noted. Results Labs: Abnormal Lab Results - Last 24 Hours (Table) 01/25/25 01/25/25 Range/Units 17:35 20:18 POC Glucose (mg/dL) 158 H 132 H (70-110) mg/dL Assessment and Plan (1) Status post cervical arthrodesis Current Visit: Yes Status: Acute Code(s): Z98.1 - ARTHRODESIS STATUS SNOMED Code(s): 3631638010283 (2) Type 2 diabetes mellitus with other circulatory complications Current Visit: No Status: Acute Code(s): E11.59 - TYPE 2 DIABETES MELLITUS WITH OTH CIRCULATORY COMPLICATIONS SNOMED Code(s): 58244847 (3) Hypothyroidism, unspecified Current Visit: No Status: Acute Code(s): E03.9 - HYPOTHYROIDISM, UNSPECIFIED SNOMED Code(s): 40995329 (4) Mixed hyperlipidemia Current Visit: No Status: Acute Code(s): E78.2 - MIXED HYPERLIPIDEMIA SNOMED Code(s): 276532551 (5) Post-op pain Current Visit: No Status: Acute Code(s): G89.18 - OTHER ACUTE POSTPROCEDURAL PAIN SNOMED Code(s): 375653620 (6) Selective deficiency of immunoglobulin a [iga] Current Visit: Yes Status: Acute Code(s): D80.2 - SELECTIVE DEFICIENCY OF IMMUNOGLOBULIN A [IGA] SNOMED Code(s): 472877441 (7) Essential (primary) hypertension Current Visit: No Status: Acute Code(s): I10 - ESSENTIAL (PRIMARY) HYPERTENSION SNOMED Code(s): 82095583 Plan: Will recheck her laboratory studies in a.m., her home meds have been restarted, due to her history of diabetes I will add an insulin scale and Accu-Cheks before meals and at bedtime. Pain managed by surgery. Will reevaluate her in the next 24 hours. Thank you very much for this consultation.
[2025-01-26] MEDS: INSULIN LISPRO (HumaLOG) 100 UNIT/ML 10 mL VL SQ SCH (12:36)
[2025-01-26 16:54] LABS: Glucose,Whole Blood 126 mg/dL (70-110)
[2025-01-26] MEDS: ASPIRIN 81 MG PO SCH (17:26)
[2025-01-26 20:39] LABS: Glucose,Whole Blood 118 mg/dL (70-110)
[2025-01-26] MEDS: HYDROmorphone 0.5 MG/0.5 ML SYRINGE IVP PRN (23:02)
[2025-01-27 06:18] LABS: Glucose,Whole Blood 111 mg/dL (70-110)
[2025-01-27] MEDS: IPRATROPIUM-ALBUTEROL 3 ML NEB INHALATION PRN (08:31)
--- NOTE | 2025-01-27 10:14 | P.PN ---
Subjective Progress Note Date: 01/27/25 Principal diagnosis: Status post C4-C7 ACDF Patient evaluated at bedside, she is resting in her hospital bed. Patient was unable to urinate yesterday, urinary catheter was placed. When discussing this with patient she states she has had urinary retention in the past, she does see Dr. Cevallos from our urology department here, she is has a history of kidney stones. Pain is well-controlled at this time. Patient denies any headaches, lightheadedness, chest pain or shortness of breath Objective - Vital Signs Vital signs: Vital Signs Temp 98.2 F 01/27/25 07:07 Pulse 80 01/27/25 08:42 Resp 18 01/27/25 07:07 BP 118/72 01/27/25 07:07 Pulse Ox 92 L 01/27/25 07:07 FiO2 Intake & Output 01/26/25 01/27/25 01/27/25 18:59 06:59 18:59 Output Total 1150 300 Balance -1150 -300 Output: Urine 1150 300 Uretheral (Peterson) 1150 - Exam Gen: AOx3, NAD VSS stable at this time Integument: Postop dressing in good position and condition Palpation: Mild tenderness with palpation to the anterior cervical spine ROM: Full range of motion in all major muscle groups of the bilateral upper and lower extremities, no focal deficits appreciated Sensory Exam: Senory exam to light touch is intact C5-T1 Senosry exam to light touch is intact L2-S1 Motor: 5/5 strength appreciate the bilateral lower extremities with hip flexion, knee extension, knee flexion, plantarflexion, dorsiflexion, EHL, FHL 4/5 strength appreciated in the bilateral upper extremities with shoulder elevation, shoulder abduction, elbow extension, elbow flexion, wrist extension, wrist flexion, behavioral health director Reflexes: 2/4 in all UE and LE Positive Yuni's left, negative right Negative Babinski bilaterally Negative clonus bilaterally - Labs Labs: Abnormal Lab Results - Last 24 Hours (Table) 01/26/25 01/26/25 01/27/25 Range/Units 16:53 20:38 06:16 POC Glucose (mg/dL) 126 H 118 H 111 H (70-110) mg/dL Assessment and Plan Assessment: Postoperative day #2 status post C4-C7 ACDF Plan: Pain control, continue with current medications DVT prophylaxis, aspirin 81 mg daily Wound care, surgical dressing was changed at bedside, drain was also removed. Soft c-collar at all times Weight-bear as tolerated with walker No bending, lifting or twisting Medical recommendations appreciated Discharge planning: Due to urinary retention we will keep patient in hospital at this time. Will discuss with urology on 01/28/2025 urinary catheter instructions and follow-up recommendations, plan for discharge home on 01/28/2025 Time with Patient: Less than 30
[2025-01-27 11:43] LABS: Glucose,Whole Blood 115 mg/dL (70-110)
--- NOTE | 2025-01-27 12:19 | P.PN ---
Subjective Nidia Middleton is a 74-year-old female well-known to my practice. Underwent yesterday and anterior cervical discectomy and fusion with Dr. Goodman meraz, she is postop day 1 today. She is a type II diabetic but currently is not on any medication, she has a deficiency, hypothyroidism hyperlipidemia hypertension. She is having some postoperative pain as I see her today. Her , who is blind, is at her bedside today. She denies any chest pains pressure shortness of breath nausea vomiting. She has not had a bowel movement. They just remove the Peterson catheter earlier this morning. Other than her pain she feels quite stable. January 27, 2025: Patient is postop day 2 C4-C7 ACDF. She apparently yesterday afternoon had urinary retention was unable to urinate empty her bladder completely. She normally sees Dr. Vanegas for this who informed her in the past she is not completely emptying her bladder. She denies any chest pains pressure shortness of breath nausea or vomiting. Has not had a bowel movement today. She reports some trouble swallowing and her diet was changed to ground texture from normal. She has remained afebrile, blood pressures normal, pulse oximetry 92% on room air. Sugar log reviewed, labs are pending for this morning. She remains on her home medications along with cefazolin for prophylactic antibiotic coverage. Objective - Vital Signs Vital signs: Vital Signs Temp 98.2 F 01/27/25 07:07 Pulse 80 01/27/25 08:42 Resp 18 01/27/25 07:07 BP 118/72 01/27/25 07:07 Pulse Ox 92 L 01/27/25 07:07 FiO2 Intake & Output 01/26/25 01/27/25 01/27/25 18:59 06:59 18:59 Output Total 1150 300 Balance -1150 -300 Output: Urine 1150 300 Uretheral (Peterson) 1150 Other: Voiding Method Indwelling Catheter - Exam GENERAL: Fatigued, slightly uncomfortable, female, c-collar in place, sitting on the side of the bed NECK: Anterior incision site is viewable below her c-collar. Soft c-collar is in place, further exam deferred LUNGS: Breath sounds clear to auscultation bilaterally and equal. No wheezes rales or rhonchi. HEART: Regular rate and rhythm without murmurs, rubs or gallops.S1S2 Normal ABDOMEN: Soft, nontender, normoactive bowel sounds. No guarding, no rebound. No masses appreciated. EXTREMITIES: Normal range of motion, no pitting or edema. No clubbing or cyanosis. NEUROLOGICAL: Cranial nerves II through XII grossly intact. Normal speech, normal gait. PSYCH: Normal mood, normal affect. SKIN: Warm, Dry, normal turgor, no rashes or lesions noted. - Labs Labs: Abnormal Lab Results - Last 24 Hours (Table) 01/26/25 01/26/25 01/27/25 Range/Units 16:53 20:38 06:16 POC Glucose (mg/dL) 126 H 118 H 111 H (70-110) mg/dL 01/27/25 Range/Units 11:42 POC Glucose (mg/dL) 115 H (70-110) mg/dL Assessment and Plan (1) Status post cervical arthrodesis Current Visit: Yes Status: Acute Code(s): Z98.1 - ARTHRODESIS STATUS SNOMED Code(s): 7947387175761 (2) Type 2 diabetes mellitus with other circulatory complications Current Visit: No Status: Acute Code(s): E11.59 - TYPE 2 DIABETES MELLITUS WITH OTH CIRCULATORY COMPLICATIONS SNOMED Code(s): 13681597 (3) Hypothyroidism, unspecified Current Visit: No Status: Acute Code(s): E03.9 - HYPOTHYROIDISM, UNSPECIFIED SNOMED Code(s): 36058703 (4) Mixed hyperlipidemia Current Visit: No Status: Acute Code(s): E78.2 - MIXED HYPERLIPIDEMIA SNOMED Code(s): 712779224 (5) Post-op pain Current Visit: No Status: Acute Code(s): G89.18 - OTHER ACUTE POSTPROCEDURAL PAIN SNOMED Code(s): 368982258 (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
[2025-01-27 12:45] LABS: ALT 10 U/L (4-34); AST 27 U/L (14-36); African American GFR (CKD) 88 (>60 ml/min/1.73 sqM); Albumin 3.9 g/dL (3.5-5.0); Albumin/Globulin Ratio 1.4; Alkaline Phosphatase 93 U/L (38-126); Anion Gap 8 mmol/L; Blood Urea Nitrogen 13 mg/dL (7-17); Calcium 9.4 mg/dL (8.4-10.2); Carbon Dioxide 29 mmol/L (22-30); Chloride 103 mmol/L (98-107); Globulin 2.8 g/dL; Glucose 94 mg/dL (74-99); Non-African American GFR(CKD) 76 (>60 ml/min/1.73 sqM); Sodium 140 mmol/L (137-145); Total Bilirubin 0.7 mg/dL (0.2-1.3); Total Protein 6.7 g/dL (6.3-8.2)
[2025-01-27 16:42] LABS: Glucose,Whole Blood 107 mg/dL (70-110)
[2025-01-27] MEDS: TAMSULOSIN 0.4 MG CAP.ER.24H PO SCH (18:01)
[2025-01-27 20:27] LABS: Glucose,Whole Blood 139 mg/dL (70-110)
[2025-01-27] MEDS: DOCUSATE 100 MG CAP PO SCH (20:36)
[2025-01-28 06:06] LABS: Glucose,Whole Blood 95 mg/dL (70-110)
[2025-01-28 08:03] VITALS: BP 134/74; PULSE 91; RESP 18; TEMP 98.5
[2025-01-28] MEDS: polyethylene glycoL 3350 17 GM POWD.PACK PO SCH (08:35)
--- NOTE | 2025-01-28 09:12 | P.PN ---
Subjective Progress Note Date: 01/28/25 01/26/25 Nidia Middleton is a 74-year-old female well-known to my practice. Underwent yesterday and anterior cervical discectomy and fusion with Dr. Goodman meraz, she is postop day 1 today. She is a type II diabetic but currently is not on any medication, she has a deficiency, hypothyroidism hyperlipidemia hypertension. She is having some postoperative pain as I see her today. Her , who is blind, is at her bedside today. She denies any chest pains pressure shortness of breath nausea vomiting. She has not had a bowel movement. They just remove the Peterson catheter earlier this morning. Other than her pain she feels quite stable. January 27, 2025: Patient is postop day 2 C4-C7 ACDF. She apparently yesterday afternoon had urinary retention was unable to urinate empty her bladder comp letely. She normally sees Dr. Vanegas for this who informed her in the past she is not completely emptying her bladder. She denies any chest pains pressure shortness of breath nausea or vomiting. Has not had a bowel movement today. She reports some trouble swallowing and her diet was changed to ground texture from normal. She has remained afebrile, blood pressures normal, pulse oximetry 92% on room air. Sugar log reviewed, labs are pending for this morning. She remains on her home medications along with cefazolin for prophylactic antibiotic coverage. 01/28/2025 ambulating in room, tolerating exertion well. pain well-controlled. Denies numbness or tingling of extremities. denies lightheadedness dizziness or focal deficits. Denies chest pain, palpitations or shortness of breath. Occa sional nonproductive cough. reports mild sore throat post intubation , mucous membranes moist ,tolerating soft foods with no nausea vomiting or diarrhea. Passing flatus. maintained on Flomax with Peterson catheter for postop urinary retention-patient states is common for her. Reports in the past, she has sometimes required to go home with a Peterson catheter after surgery for a week before removal and has not had any issues. Denies flank or suprapubic pain. Denies hematuria. continues on cefazolin ,afebrile. Denies any sweats or chills throughout the night. Objective - Vital Signs Vital signs: Vital Signs Temp 98.5 F 01/28/25 07:15 Pulse 91 01/28/25 07:15 Resp 18 01/28/25 07:15 BP 134/74 01/28/25 07:15 Pulse Ox 96 01/28/25 07:15 FiO2 Intake & Output 01/27/25 01/28/25 01/28/25 18:59 06:59 18:59 Intake Total 420 Output Total 1000 Balance -580 Intake: Oral 420 Output: Urine 1000 Other: Voiding Method Indwelling Catheter Indwelling Catheter Indwelling Catheter - Exam GENERAL: Alert and oriented x 3, sitting up in bed, no acute distress, wearing soft c-collar. HEENT: Normocephalic, atraumatic, pupils equal and reactive. Conjunctiva normal.MMM. NECK: Wearing soft c-collar, dressing change pending as per orthopedic spine. further exam deferred. LUNGS: Unlabored, equal air entry, clear to auscultation. HEART: Regular rate and rhythm without murmurs, rubs or gallops.S1S2 Normal ABDOMEN: Soft, nondistended, nontender, normoactive bowel sounds. No guarding, no rigidity. NEUROLOGICAL: Cranial nerves II through XII grossly intact. No focal deficits. EXTREMITIES: No edema, no clubbing or cyanosis. Strength and sensation grossly intact. positive radial and DP pulses. SKIN: Warm, Dry, normal turgor, no rashes or lesions noted. - Labs CBC & Chem 7: 01/27/25 12:23 Labs: Abnormal Lab Results - Last 24 Hours (Table) 01/27/25 01/27/25 Range/Units 11:42 20:25 POC Glucose (mg/dL) 115 H 139 H (70-110) mg/dL Assessment and Plan Assessment: (1) Status post cervical arthrodesis, C4-C7 ACDF Current Visit: Yes Status: Acute Code(s): Z98.1 - ARTHRODESIS STATUS SNOMED Code(s): 3672858409660 (2) Type 2 diabetes mellitus with other circulatory complications Current Visit: No Status: Acute Code(s): E11.59 - TYPE 2 DIABETES MELLITUS WITH OTH CIRCULATORY COMPLICATIONS SNOMED Code(s): 89738819 (3) Hypothyroidism, unspecified Current Visit: No Status: Acute Code(s): E03.9 - HYPOTHYROIDISM, UNSPECIFIED SNOMED Code(s): 28884022 (4) Mixed hyperlipidemia Current Visit: No Status: Acute Code(s): E78.2 - MIXED HYPERLIPIDEMIA SNOMED Code(s): 203523572 (5) Post-op pain Current Visit: No Status: Acute Code(s): G89.18 - OTHER ACUTE POSTPROCEDURAL PAIN SNOMED Code(s): 133354241 (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 Reports history of postoperative urinary retention post prior surgeries. (9) history of kidney stones. Plan: Continue on current medication regimen ,monitoring and symptomatic treatment. Patient is eager for discharge to day. Discharge planning in progress per orthopedic spine. At DC maintain aggressive pulmonary toileting with incentive spirometer every hour x 10 while awake. Continue on Flomax/urinary catheter instructions as per urology. MiraLAX added to med regimen. Pain management and DVT prophylaxis as per primary. UA with reflex to culture to be collected prior to discharge with results to be faxed to PCP. follow-up with PCP in 1 week. The impression and plan of care has been dictated as directed. : I performed a history and examination of this patient, discussed the same with the dictator. I agree with the dictator's note ,documented as a scribe. Any additional findings or plans will be noted.
[2025-01-28 10:57] LABS: BUN/Creat Ratio 12.88 Ratio (12.00-20.00); Blood Urea Nitrogen 10.3 mg/dL (9.0-27.0); Calcium 8.7 mg/dL (8.7-10.3); Carbon Dioxide 25.3 mmol/L (21.6-31.8); Chloride 106 mmol/L (96-109); Glucose 95 mg/dL (70-110); Potassium 3.9 mmol/L (3.5-5.5); Sodium 142 mmol/L (135-145)
[2025-01-28 11:44] LABS: Appearance,Urine Clear (Clear); Bilirubin,Urine Negative (Negative); Blood,Urine Small (Negative); Calcium Oxalate Crystals,Urine Occasional /hpf; Color,Urine Light Yellow; Glucose,Urine (UA) 4+ (Negative); Hyaline Casts,Urine 1 /lpf (0-2); Ketones,Urine Negative (Negative); Leukocyte Esterase,Urine Small (Negative); Mucus,Urine Rare /hpf; Nitrite,Urine Negative (Negative); PH, Urine 6.5 (5.0-8.0); Protein,Urine 1+ (Negative); RBC,Urine 6 /hpf (0-5); Specific Gravity,Urine 1.017 (1.001-1.035); Squamous Epithelial Cell,Urine 1 /hpf (0-4); Urobilinogen,Urine <2.0 mg/dL (<2.0); WBC,Urine 5 /hpf (0-5)
[2025-01-28 11:54] LABS: Glucose,Whole Blood 121 mg/dL (70-110)
--- NOTE | 2025-01-28 13:10 | P.PN ---
Subjective Progress Note Date: 01/28/25 Principal diagnosis: Status post C4-C7 ACDF Patient evaluated at bedside, she is resting in her hospital bed. Pain is well-controlled at this time. Patient denies any headaches, lightheadedness, chest pain or shortness of breath Objective - Vital Signs Vital signs: Vital Signs Temp 98.5 F 01/28/25 07:15 Pulse 91 01/28/25 07:15 Resp 18 01/28/25 07:15 BP 134/74 01/28/25 07:15 Pulse Ox 96 01/28/25 07:15 FiO2 Intake & Output 01/27/25 01/28/25 01/28/25 18:59 06:59 18:59 Intake Total 420 Output Total 1000 1400 Balance -580 -1400 Intake: Oral 420 Output: Urine 1000 1400 Other: Voiding Method Indwelling Catheter Indwelling Catheter Indwelling Catheter - Exam Gen: AOx3, NAD VSS stable at this time Integument: Postop dressing in good position and condition Palpation: Mild tenderness with palpation to the anterior cervical spine ROM: Full range of motion in all major muscle groups of the bilateral upper and lower extremities, no focal deficits appreciated Sensory Exam: Senory exam to light touch is intact C5-T1 Senosry exam to light touch is intact L2-S1 Motor: 5/5 strength appreciate the bilateral lower extremities with hip flexion, knee extension, knee flexion, plantarflexion, dorsiflexion, EHL, FHL 4/5 strength appreciated in the bilateral upper extremities with shoulder enrique vation, shoulder abduction, elbow extension, elbow flexion, wrist extension, wrist flexion, torch solderer Reflexes: 2/4 in all UE and LE Positive Yuni's left, negative right Negative Babinski bilaterally Negative clonus bilaterally - Labs CBC & Chem 7: 01/28/25 06:06 Labs: Abnormal Lab Results - Last 24 Hours (Table) 01/27/25 01/28/25 01/28/25 Range/Units 20:25 10:40 11:53 POC Glucose (mg/dL) 139 H 121 H (70-110) mg/dL Urine Protein 1+ H (Negative) Urine Glucose (UA) 4+ H (Negative) Urine Blood Small H (Negative) Ur Leukocyte Esterase Small H (Negative) Urine RBC 6 H (0-5) /hpf Calcium Oxalate Crystal Occasional H (None) /hpf Urine Mucus Rare H (None) /hpf Assessment and Plan Assessment: Postoperative day #3 status post C4-C7 ACDF Plan: Pain control, patient will utilize [place] 7.5 mg / 325 mg at discharge DVT prophylaxis, aspirin 81 mg daily Wound care discussed with patient, this to include showering Soft c-collar at all times Weight-bear as tolerated with walker No bending, lifting or twisting Medical recommendations appreciated Discharge planning: Patient's follow-up has been scheduled for urology and catheter management, patient stable for discharge home today Time with Patient: Less than 30
--- NOTE | 2025-01-28 13:28 | P.DS ---
Providers Date of admission: 01/25/2025 Expected date of discharge: 01/28/25 Attending physician: Amadeo Syed DO Consults: 01/25/25 16:15 Consult Physician Routine Consulting Provider: Richard Tinoco Reason/Comments: medical management Do you want consulting provider notified?: Yes Primary care physician: Richard Tinoco Hospital Course: Date of admission: 01/25/2025 Date of discharge: 01/28/2025 Admission diagnosis: Status post C4-C7 ACDF Discharge diagnosis: Same Attending physician: Dr. Syed Surgical procedures: C4-C7 ACDF Brief history: Patient is a 74-year-old female with a history of progressive neck pain, bilateral upper extremity weakness and radiculopathy along with cervical myelopathy. At this point patient has failed conservative treatment measures and has opted to proceed with a elective C4-C7 ACDF. Hospital course: Details of patient's surgery can be found in operative report. Patient tolerated the procedure well and was subsequently transported to orthopedic floor. Patient's orthopeidc and medical care was provided daily. Patient had daily laboratory tests performed for evaluation of overall blood counts. Patient had daily physical therapy to include strengthening range of motion as well as education with walker ambulation. Patient was treated with aspirin for their postoperative DVT prophylaxis during their inpatient stay. Patient was noted to have a relatively uneventful postoperative course. Patient did develop urinary retention after surgery, urinary catheter was again placed, follow-up with urology was scheduled prior to discharge Patient reported satisfactory pain control with oral pain medications by postoperative day 1. Patient showed satisfactory progress with physical therapy. Patient moved s teadily through the program and had no difficulty meeting the goals by postoperative day 3. Given patient's otherwise satisfactory course and having met physical therapy goals, plan is to discharge patient home on postoperative day 3. Discharge condition/disposition: Patient will be discharged home in stable condition. Discharge medications: Instructions are given on resumption of patient's normal daily medications per primary care recommendation, in addition patient will be prescribed Hosston 7.5 mg / 325 mg, senna S, MiraLAX 17 g, Flomax 0.4 mg. Spine Discharge and Recovery Instructions All medication refills should be obtained through your primary care doctor or your clinic spine surgeon. Please discuss prescription refills at your follow up appointment. Do not call the hospital for medication refills. Dressing: Leave your dressing in place for a total of 5 days post operatively. Then you may remove your dressing and leave open to air. Keep the area clean and if not able to keep area clean, then cover with sterile gauze and tape. Showering: You may shower 3 days after your procedure allowing soap and water to run over incision. Do not scrub. Do not soak. Blot dry. Follow up: Please confirm a follow up appointment with your surgeon 3 weeks post operatively. Please make an appointment to follow up with your PCP in 1-2 weeks after surgery for evaluation '3 phase, 3-week plan' POST OP WEEKS 1-3 1. Lifting/carrying/pushing/pulling limited to less than 5 pounds. 2. Do not sit for longer than 15 minutes at one time. Get up and walk around. Prolonged sitting is NOT advised. If you lay down, see if you can tolerate laying down on you front (belly side) 3. Walk for periods of 15 minutes = 1 mile but no longer; do it multiple times times each day. 4. Ice your low back after activity. POST OP WEEKS 3-6 1. Lifting limited to less than 20 pounds. 2. Do not sit for longer than 30 minutes at a time. Frequently change positions. Use a sit-to stand workstation or take frequent breaks from sitting if you have returned to work. 3. Walk for 30 minutes each day. If possible, do these three or more times a day POST OP WEEKS 6+ At your 6-week appointment we will give you a physical therapy referral to focus on a core stabilization and strengthening program. You should also work on leg & buttock strengthening, hamstring & quadriceps stretching, and continue a low impact aerobic activity program such as swimming, walking, or riding a stationary bicycle. During the initial 6 weeks after your surgery, you are at the highest risk of re-injuring your spine. You should generally avoid BLT's (bending, lifting and twisting combination motions) and follow the above guidelines to reduce the chance of reinjury. You can anticipate post op appointments in our office at approximately 3 weeks and 6 weeks after your surgery. INCISION CARE: If your incision is not draining you do NOT need to cover it with a dressing. Keep your incision clean, dry and intact. In most cases, we apply skin glue, andreas or sutures to the incision at the time of surgery. This will be like a crust or have the appearance of a scab and will fall off in time on its own. The stitches or andreas need to be removed at 3 weeks post op appointment. You may begin to shower 3 days after surgery (this allows the glue to ruiz well). However, please avoid scrubbing the incision site or peeling off any of the skin glue. This will ensure optimal healing of your incision. Also, during this time avoid soaking the incision area in water - this includes swimming pools, hot tubs or baths. No ointments, lotions or oils on the incision until your surgeon allows. Leave andreas, sutures or glue in place. Neurological dysfunction that comes on suddenly can also be a sign of a stroke. Below some common symptoms of a stroke are listed: B - balance difficulty such as sudden onset walking or leaning to one side - NEW E - eye problem such as sudden double vision or trouble seeing on one side - NEW F - Facial weakness or numbness on one side - NEW A - Arm or leg weakness or numbness on one side - NEW S - Slurred speech or difficulty with word finding - NEW T - Time is BRAIN! Call 911 as soon as you recognize these symptoms Diet: Consume a regular diet rich in vegetables and lean protein such as chicken or fish. You should consume in a ratio of approximately 20% fats|40% carbohydrates|40%protein. Vegetables, sweet potatoes, brown rice or quinoa are examples of good carbohydrates. Chips, white bread, cookies and sweets/sugar are examples of bad carbohydrates. Limit your bad carbs, go wild with good carbs. "Life's Simple 7" Guidelines as per [place] [employer] These will help you reclaim your life after surgery and wirer helper in your re covery, keeping in mind your restrictions. (1) Get Active. Physical activity can help people lose weight, control high blood pressure and cholesterol, feel emotionally better, and sleep better. (2) Control Cholesterol. Avoid a diet high in saturated fat, trans fat, & cholesterol. Limit whole milk & cream, ice cream, butter, egg yolks, processed meats (like sausage and hot dogs), and fatty meats. Choose healthy foods that are low in saturated fat, trans fat and cholesterol which include: Fruits and vegetables, fiber rich grain products (like whole grain pasta and brown rice), lean meat such as chicken, fish, nuts, seeds, and legumes. (3) Eat Better. Eat small portions. Shop at the grocery with a list and do not stray from it. Tips for a healthy diet include: Limit sodium intake to less than 1500mg daily, avoid prepackaged, processed, and fast foods, choose a diet rich in fruits, vegetables, and whole grain, high fiber foods, and limit saturated & cholesterol in your diet. (4) Manage Blood Pressure. If you have high blood pressure, you should have a cuff at home so that you can check your blood pressure regularly. Be sure you have a good cuff. An arm one is generally better than a wrist one. Bring the cuff to a doctor's appointment to validate that the measurements that your cuff are taking are accurate. Take your blood pressure twice daily when you are sitting down and relaxing. Record the numbers in a log and bring this log with you to your doctors' appointments. (5) Lose Weight if your BMI is above 25. A healthy BMI is between 19-25. To calculate Your BMI, you may use a Standard BMI Calculator on the NIH BMI website: <www.nhlbi.nih.gov/guidelines/obesity/BMI/bmicalc.htm>. Weigh oneself daily. If you are overweight, set a goal to lose weight. A pound a week loss if needed is a good target. (6) Reduce Blood Sugar. Limit foods and liquids with "added sugars." (Added sugars include sucrose, fructose, glucose, maltose, dextrose, high fructose corn syrup, corn syrup, concentrated fruit juice and honey). (7) Stop Smoking. If you smoke, quitting smoking is one of the best things that you can do for your health. Smoking increases your risk of heart attack, stroke, and peripheral vascular disease, which is a build-up of plaque in your arteries. Please discard all the cigarettes and lighters in your house. Have a plan for what you will do when you have the urge to smoke. Direct and second- hand smoke shortens your life as well as the lives of your family, friends and others around you. For your health and the health of those around you, please consider quitting! Proper Bending Body Mechanics: Maintain a wide stance with one foot slightly in front of the other. Keep your back straight. Bend utilizing the strength in your hips and knees. Do not bend at the waist. Maintain the lifted object at your waist-level close to your body. Avoid lifting weight that causes immediately pain or pain anywhere in the body afterwards. Smoking/Nicotine If there was ever one thing that you could do to increase your overall health, decrease your risk of cardiovascular problems by about 39% the second you make the choice, it is to STOP SMOKING. Your body's most instant gratification is the second you stop smoking. We have all heard the studies, read the articles but it is true, smoking is extremely bad for your overall health, and moreover it is detrimental to your bone health. Nicotine, IN ANY FORM, kills bone cells, prevents your body from healing fractures, and significantly prolongs healing after surgery. In spine surgery specifically, it increases your risk of not healing your bones to create a fusion and increases your risk of having a revision surgery due to this up to 60%. I know it is hard. I know it feels impossible. But there are ways. Take control of your life. We are here to help you through it. And when you are ready, ask us and we can direct you to help if you desire. Use the START Plan to Quit Smoking (please visit the Helpguide.org website listed below for more information): S = Set a quit date. Choose a date within the next 2 weeks, so you have enough time to prepare without losing your motivation to quit. If you mainly smoke at work, quit on the weekend, so you have a few days to adjust to the change. T = Tell family, friends, and co-workers that you plan to quit. Let your friends and family in on your plan to quit smoking and tell them you need their support and encouragement to stop. Look for a quit donato who wants to stop smoking as well. You can help each other get through the rough times. A = Anticipate and plan for the challenges you'll face while quitting. Most people who begin smoking again do so within the first 3 months. You can help yourself make it through by preparing ahead for common challenges, such as nicotine withdrawal and cigarette cravings. R = Remove cigarettes and other tobacco products from your home, car, and work. Throw away all your cigarettes (no emergency pack!), lighters, ashtrays, and matches. Wash your clothes and freshen up anything that smells like smoke. Shampoo your car, clean your drapes and carpet, and steam your furniture. T = Talk to your doctor about getting help to quit. Your doctor can prescribe medication to help with withdrawal and suggest other alternatives. If you can't see a doctor, you can get many products over the counter at your local pharmacy or grocery store, including the nicotine patch, nicotine lozenges, and nicotine gum. Resources for Quitting Smoking: <https://www.[place].gov/documents/[facility]/Quit_Tobacco_Resources_for_patients_313 480_7.pdf> Supplementation: Take recommended dosages of Vitamin D and Calcium to help fortify your bones and help them to heal. See your health maintenance packet for dosages and recommended levels. DVT/VTE prophylaxis: You will be given compression stockings from the hospital. Wear these daily for the first two weeks after surgery. You may take them off at night. You may be prescribed a medication to help thin your blood. Take this as directed. If you are not prescribed this medication, early and frequent ambulation has been shown to be the best prophylaxis to deep vein thrombosis and sequelae related to this event. Procedures: C4-C7 ACDF Patient Condition at Discharge: Good Plan - Discharge Summary Discharge Rx Participant: No New Discharge Prescriptions: New polyethylene glycoL 3350 [Miralax] 17 gm PO DAILY packet HYDROcodone/APAP 7.5-325MG [Hosston 7.5] 1 each PO Q6HR PRN #28 tab PRN Reason: Pain Sennosides-Docusate Sodium [Senokot-S] 2 each PO DAILY tab Tamsulosin [Flomax] 0.4 mg PO PC-SUPPER #14 cap Continue dilTIAZem HCL [dilTIAZem HCL 24Hr ER] 360 mg PO DAILY Amitriptyline HCl 50 mg PO HS Atorvastatin [Lipitor] 20 mg PO HS Pantoprazole [Protonix] 40 mg PO DAILY lisinopriL [Zestril] 5 mg PO DAILY L.acidoph,Paracasei, B.lactis [Probiotic] 1,000 mg PO DAILY Multivit with Calcium,Iron,Min [Women's Multivitamin] 1 tab PO DAILY Ferrous Sulfate [Iron (65 MG Elemental)] 325 mg PO DAILY Calcium Carbonate/Vitamin D3 [Calcium 600 mg-D3 20 mcg (800 unit)] 650 mg PO BID Nitroglycerin Sl Tabs [Nitrostat] 0.4 mg SUBLINGUAL Q5M PRN tab PRN Reason: Chest Pain Isosorbide Mononitrate [Isosorbide Mononitrate ER] 60 mg PO BID Amoxicillin (Unk) 2,000 mg PO DIRECTED PRN PRN Reason: prior to dental work Levothyroxine Sodium [Synthroid] 50 mcg PO DAILY Cholecalciferol [Vitamin D3 (25 Mcg = 1000 Iu)] 25 mcg PO DAILY Metoprolol Succinate (ER) [Toprol XL] 25 mg PO DAILY Ipratropium-Albuterol Nebulize [Duoneb 0.5 mg-3 mg/3 ml Soln] 3 ml INHALATION QID PRN PRN Reason: Shortness Of Breath Empagliflozin [Jardiance] 10 mg PO DAILY Discharge Medication List dilTIAZem HCL [dilTIAZem HCL 24Hr ER] 360 mg PO DAILY 04/07/16 [History] Amitriptyline HCl 50 mg PO HS 01/29/19 [History] Atorvastatin [Lipitor] 20 mg PO HS 04/23/20 [History] Pantoprazole [Protonix] 40 mg PO DAILY 04/23/20 [History] Levothyroxine Sodium [Synthroid] 50 mcg PO DAILY 11/08/21 [History] lisinopriL [Zestril] 5 mg PO DAILY 10/11/22 [History] L.acidoph,Paracasei, B.lactis [Probiotic] 1,000 mg PO DAILY 10/20/22 [History] Calcium Carbonate/Vitamin D3 [Calcium 600 mg-D3 20 mcg (800 unit)] 650 mg PO BID 05/05/23 [History] Cholecalciferol [Vitamin D3 (25 Mcg = 1000 Iu)] 25 mcg PO DAILY 05/05/23 [History] Ferrous Sulfate [Iron (65 MG Elemental)] 325 mg PO DAILY 05/05/23 [History] Multivit with Calcium,Iron,Min [Women's Multivitamin] 1 tab PO DAILY 05/05/23 [History] Nitroglycerin Sl Tabs [Nitrostat] 0.4 mg SUBLINGUAL Q5M PRN tab 10/19/23 [Rx] Isosorbide Mononitrate [Isosorbide Mononitrate ER] 60 mg PO BID 12/26/23 [History] Metoprolol Succinate (ER) [Toprol XL] 25 mg PO DAILY 06/29/24 [History] Ipratropium-Albuterol Nebulize [Duoneb 0.5 mg-3 mg/3 ml Soln] 3 ml INHALATION QID PRN 09/25/24 [History] Amoxicillin (Unk) 2,000 mg PO DIRECTED PRN 01/22/25 [History] Empagliflozin [Jardiance] 10 mg PO DAILY 01/22/25 [History] HYDROcodone/APAP 7.5-325MG [Hosston 7.5] 1 each PO Q6HR PRN #28 tab 01/28/25 [Rx] Sennosides-Docusate Sodium [Senokot-S] 2 each PO DAILY tab 01/28/25 [Rx] Tamsulosin [Flomax] 0.4 mg PO PC-SUPPER #14 cap 01/28/25 [Rx] polyethylene glycoL 3350 [Miralax] 17 gm PO DAILY packet 01/28/25 [Rx] Follow up Appointment(s)/Referral(s): Osmany Stokes MD [STAFF PHYSICIAN] - 02/06/25 9:00 am Amadeo Syed DO [Doctor of Osteopathic Medicine] - 02/08/25 9:00 am Richard Tinoco MD [Primary Care Provider] - 01/29/25 2:30 pm Activity/Diet/Wound Care/Special Instructions: Spine Discharge and Recovery Instructions Date of Surgery: 01/25/2025 Diagnosis: cervical spondylosis Procedure: C4-C7 ACDF Medications: See medication list All medication refills should be obtained through your primary care doctor or your clinic spine surgeon. Please discuss prescription refills at your follow up appointment. Do not call the hospital for medication refills. Activity: Encourage ambulation with assist of walker, Up and about 6-8x daily PT/OT daily work on balance, strength and mobility Up in chair with all meals Shower daily Brace: Use brace when up and about, do not wear in bed or shower Dressing: Leave your dressing in place for a total of 3 days post operatively. Then you may remove your dressing and leave open to air. Keep the area clean and if not able to keep area clean, then cover with sterile gauze and tape. Showering: You may shower 3 days after your procedure allowing soap and water to run over incision. Do not scrub. Do not soak. Blot dry. Follow up: Please confirm a follow up appointment with your surgeon 2 weeks post operatively. Please make an appointment to follow up with your PCP in 1-2 weeks after surgery for evaluation '3 phase, 3-week plan' POST OP WEEKS 1-3 1. Lifting/carrying/pushing/pulling limited to less than 5 pounds. 2. Do not sit for longer than 15 minutes at one time. Get up and walk around. Prolonged sitting is NOT advised. If you lay down, see if you can tolerate laying down on you front (belly side) 3. Walk for periods of 15 minutes = 1 mile but no longer; do it multiple times times each day. 4. Ice your low back after activity. POST OP WEEKS 3-6 1. Lifting limited to less than 20 pounds. 2. Do not sit for longer than 30 minutes at a time. Frequently change positions. Use a sit-to stand workstation or take frequent breaks from sitting if you have returned to work. 3. Walk for 30 minutes each day. If possible, do these three or more times a day POST OP WEEKS 6+ At your 6-week appointment we will give you a physical therapy referral to focus on a core stabilization and strengthening program. You should also work on leg & buttock strengthening, hamstring & quadriceps stretching, and continue a low impact aerobic activity program such as swimming, walking, or riding a stationary bicycle. During the initial 6 weeks after your surgery, you are at the highest risk of re-injuring your spine. You should generally avoid BLT's (bending, lifting and twisting combination motions) and follow the above guidelines to reduce the chance of reinjury. You can anticipate post op appointments in our office at approximately 3 weeks and 6 weeks after your surgery. INCISION CARE: If your incision is not draining you do NOT need to cover it with a dressing. Keep your incision clean, dry and intact. In most cases, we apply skin glue, andreas or sutures to the incision at the time of surgery. This will be like a crust or have the appearance of a scab and will fall off in time on its own. The stitches or andreas need to be removed at 3 weeks post op appointment. You may begin to shower 3 days after surgery (this allows the glue to ruiz well). However, please avoid scrubbing the incision site or peeling off any of the skin glue. This will ensure optimal healing of your incision. Also, during this time avoid soaking the incision area in water - this includes swimming pools, hot tubs or baths. No ointments, lotions or oils on the incision until your surgeon allows. Leave andreas, sutures or glue in place. Neurological dysfunction that comes on suddenly can also be a sign of a stroke. Below some common symptoms of a stroke are listed: B - balance difficulty such as sudden onset walking or leaning to one side - NEW E - eye problem such as sudden double vision or trouble seeing on one side - NEW F - Facial weakness or numbness on one side - NEW A - Arm or leg weakness or numbness on one side - NEW S - Slurred speech or difficulty with word finding - NEW T - Time is BRAIN! Call 911 as soon as you recognize these symptoms Diet: Consume a regular diet rich in vegetables and lean protein such as chicken or fish. You should consume in a ratio of approximately 20% fats|40% carbohydrates|40%protein. Vegetables, sweet potatoes, brown rice or quinoa are examples of good carbohydrates. Chips, white bread, cookies and sweets/sugar are examples of bad carbohydrates. Limit your bad carbs, go wild with good carbs. "Life's Simple 7" Guidelines as per [place] [employer] These will help you reclaim your life after surgery and wirer helper in your recovery, keeping in mind your restrictions. (1) Get Active. Physical activity can help people lose weight, control high blood pressure and cholesterol, feel emotionally better, and sleep better. (2) Control Cholesterol. Avoid a diet high in saturated fat, trans fat, & cholesterol. Limit whole milk & cream, ice cream, butter, egg yolks, processed meats (like sausage and hot dogs), and fatty meats. Choose healthy foods that are low in saturated fat, trans fat and cholesterol which include: Fruits and vegetables, fiber rich grain products (like whole grain pasta and brown rice), lean meat such as chicken, fish, nuts, seeds, and legumes. (3) Eat Better. Eat small portions. Shop at the grocery with a list and do not stray from it. Tips for a healthy diet include: Limit sodium intake to less than 1500mg daily, avoid prepackaged, processed, and fast foods, choose a diet rich in fruits, vegetables, and whole grain, high fiber foods, and limit saturated & cholesterol in your diet. (4) Manage Blood Pressure. If you have high blood pressure, you should have a cuff at home so that you can check your blood pressure regularly. Be sure you have a good cuff. An arm one is generally better than a wrist one. Bring the cuff to a doctor's appointment to validate that the measurements that your cuff are taking are accurate. Take your blood pressure twice daily when you are sitting down and relaxing. Record the numbers in a log and bring this log with you to your doctors' appointments. (5) Lose Weight if your BMI is above 25. A healthy BMI is between 19-25. To calculate Your BMI, you may use a Standard BMI Calculator on the NIH BMI website: <www.nhlbi.nih.gov/guidelines/obesity/BMI/bmicalc.htm>. Weigh oneself daily. If you are overweight, set a goal to lose weight. A pound a week loss if needed is a good target. (6) Reduce Blood Sugar. Limit foods and liquids with "added sugars." (Added sugars include sucrose, fructose, glucose, maltose, dextrose, high fructose corn syrup, corn syrup, concentrated fruit juice and honey). (7) Stop Smoking. If you smoke, quitting smoking is one of the best things that you can do for your health. Smoking increases your risk of heart attack, stroke, and peripheral vascular disease, which is a build-up of plaque in your arteries. Please discard all the cigarettes and lighters in your house. Have a plan for what you will do when you have the urge to smoke. Direct and second- hand smoke shortens your life as well as the lives of your family, friends and others around you. For your health and the health of those around you, please co nsider quitting! Proper Bending Body Mechanics: Maintain a wide stance with one foot slightly in front of the other. Keep your back straight. Bend utilizing the strength in your hips and knees. Do not bend at the waist. Maintain the lifted object at your waist-level close to your body. Avoid lifting weight that causes immediately pain or pain anywhere in the body afterwards. Smoking/Nicotine If there was ever one thing that you could do to increase your overall health, decrease your risk of cardiovascular problems by about 39% the second you make the choice, it is to STOP SMOKING. Your body's most instant gratification is the second you stop smoking. We have all heard the studies, read the articles but it is true, smoking is extremely bad for your overall health, and moreover it is detrimental to your bone health. Nicotine, IN ANY FORM, kills bone cells, prevents your body from healing fractures, and significantly prolongs healing after surgery. In spine surgery specifically, it increases your risk of not healing your bones to create a fusion and increases your risk of having a revision surgery due to this up to 60%. I know it is hard. I know it feels impossible. But there are ways. Take control of your life. We are here to help you through it. And when you are ready, ask us and we can direct you to help if you desire. Use the START Plan to Quit Smoking (please visit the Helpguide.org website listed below for more information): S = Set a quit date. Choose a date within the next 2 weeks, so you have enough time to prepare without losing your motivation to quit. If you mainly smoke at work, quit on the weekend, so you have a few days to adjust to the change. T = Tell family, friends, and co-workers that you plan to quit. Let your friends and family in on your plan to quit smoking and tell them you need their support and encouragement to stop. Look for a quit donato who wants to stop smoking as well. You can help each other get through the rough times. A = Anticipate and plan for the challenges you'll face while quitting. Most people who begin smoking again do so within the first 3 months. You can help yourself make it through by preparing ahead for common challenges, such as nicotine withdrawal and cigarette cravings. R = Remove cigarettes and other tobacco products from your home, car, and work. Throw away all your cigarettes (no emergency pack!), lighters, ashtrays, and matches. Wash your clothes and freshen up anything that smells like smoke. Shampoo your car, clean your drapes and carpet, and steam your furniture. T = Talk to your doctor about getting help to quit. Your doctor can prescribe medication to help with withdrawal and suggest other alternatives. If you can't see a doctor, you can get many products over the counter at your local pharmacy or grocery store, including the nicotine patch, nicotine lozenges, and nicotine gum. Resources for Quitting Smoking: <https://www.[place].gov/documents/[facility]/Quit_Tobacco_Resources_for_patients_313 480_7.pdf> Supplementation: Take recommended dosages of Vitamin D and Calcium to help fortify your bones and help them to heal. See your health maintenance packet for dosages and recommended levels. DVT/VTE prophylaxis: You will be given compression stockings from the hospital. Wear these daily for the first two weeks after surgery. You may take them off at night. You may be prescribed a medication to help thin your blood. Take this as directed. If you are not prescribed this medication, early and frequent ambulation has been shown to be the best prophylaxis to deep vein thrombosis and sequelae related to this event. Discharge Disposition: HOME WITH HOME HEALTH SERVICES
== END 2025-01-28 16:37 | disposition home health service (06) ==
LOC: OR 10:53 → 4SSUR 16:01 → OR 01-28 16:37
PROVIDERS: ATTEND Orthopaedic Surgery
DX: M47.12 Other spondylosis with myelopathy, cervical region (principal); M47.22 Other spondylosis with radiculopathy, cervical region; M48.02 Spinal stenosis, cervical region; E11.59 Type 2 diabetes mellitus with other circulatory complications; E03.9 Hypothyroidism, unspecified; E78.2 Mixed hyperlipidemia; G89.18 Other acute postprocedural pain; D80.2 Selective deficiency of immunoglobulin A [IgA]; I10 Essential (primary) hypertension; R53.1 Weakness; Z79.890 Hormone replacement therapy; I25.2 Old myocardial infarction; I25.10 Atherosclerotic heart disease of native coronary artery without angina pectoris; G47.30 Sleep apnea, unspecified; J45.909 Unspecified asthma, uncomplicated; Z86.73 Personal history of transient ischemic attack (TIA), and cerebral infarction without residual deficits
CPT/HCPCS: 97116; 97162; 80048; 81001; 72040; 72125; 22551; L0120; C1713; J1940; J0690 ×3; J2405; J3490; J1171 ×4; J1885 ×2

== ENCOUNTER → 2025-03-08 | Outpatient (CLI) | payer MEDICARE, OTHER ==
--- NOTE | 2025-03-08 08:02 | US ---
EXAMINATION TYPE: US kidneys/renal and bladder DATE OF EXAM: 03/08/2025 COMPARISON: NONE CLINICAL INDICATION: Female, 74 years old with history of N18.2 CHRONIC KIDNEY DISEASE, STAGE 2 (MILD ); CKD, no symptoms TECHNIQUE: Grayscale imaging of the bilateral kidneys and urinary bladder: FINDINGS: EXAM MEASUREMENTS: Right Kidney: 8.0 x 3.6 x 4.1 cm Left Kidney: 10.5 x 3.3 x 4.2 cm Right Kidney: Smaller in size, No hydronephrosis or masses seen Left Kidney: Probable dromedary hump, No hydronephrosis or masses seen Bladder: wnl There is no evidence for hydronephrosis at this point in time. No nephrolithiasis is seen. No carlotta s are identified. The urinary bladder is anechoic. IMPRESSION: 1. No evidence for obstructive uropathy. 2. Slightly more atrophic right kidney compared to left. [facility], , 03/08/2025 8:00 AM
[2025-03-08 10:47] LABS: BUN/Creat Ratio 18.22 Ratio (12.00-20.00); Blood Urea Nitrogen 16.4 mg/dL (9.0-27.0); Calcium 9.5 mg/dL (8.7-10.3); Carbon Dioxide 25.7 mmol/L (21.6-31.8); Chloride 104 mmol/L (96-109); Glucose 101 mg/dL (70-110); Potassium 4.4 mmol/L (3.5-5.5); Sodium 141 mmol/L (135-145)
== END | disposition home or self-care (01) ==
LOC: RADUSWWP 07:23
PROVIDERS: ATTEND Family Medicine
DX: N20.0 Calculus of kidney (principal); N18.2 Chronic kidney disease, stage 2 (mild); I12.9 Hypertensive chronic kidney disease with stage 1 through stage 4 chronic kidney disease, or unspecified chronic kidney disease
CPT/HCPCS: 76770; 80048

== ENCOUNTER → 2025-06-18 | Outpatient (CLI) | payer MEDICARE, OTHER ==
[2025-06-18 10:46] LABS: Anion Gap 13.70 mmol/L (4.00-12.00); BUN/Creat Ratio 15.50 Ratio (12.00-20.00); Blood Urea Nitrogen 15.5 mg/dL (9.0-27.0); Calcium 9.5 mg/dL (8.7-10.3); Carbon Dioxide 22.3 mmol/L (21.6-31.8); Chloride 107 mmol/L (96-109); Glucose 106 mg/dL (70-110); Potassium 4.6 mmol/L (3.5-5.5); Sodium 143 mmol/L (135-145)
== END | disposition home or self-care (01) ==
LOC: LABWHC1 06:56
PROVIDERS: ATTEND Family Medicine
DX: E11.69 Type 2 diabetes mellitus with other specified complication (principal)
CPT/HCPCS: 36415; 80048